=== PATIENT | female | born 1975 | race Caucasian/White ===

== ENCOUNTER 2023-07-11 19:47 | Emergency (ER) | payer BC, OTHER, SELFPAY ==
[2023-07-11] VITALS (18 sets, daily range): BP systolic 135–156; BP diastolic 82–109; PULSE 74–98; RESP 5–23; TEMP 36.9; O2SAT 95–97; BMI 28.9
--- NOTE | 2023-07-11 20:05 | PC.NURSE ---
Pt states she has been off Amlodipine for several days because her insurance no longer covers it EKG obtained
--- NOTE | 2023-07-11 20:14 | ECG_ITS ---
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
--- NOTE | 2023-07-11 20:14 | XR_ITS ---
[address] [address] Patient Name: BRANDON LONG MRN: [id number] date: 1975 Sex: F Assigned Patient Location: ER Current Patient Location: ER Accession/Order Number: [id number] Exam Date: 07/11/2023 19:50 Report Date: 07/11/2023 21:28 At the request of: DANELLE DAWKINS Procedure: XR chest 1V EXAM: XR chest 1V HISTORY: chest pain COMPARISON: Chest x-ray 01/01/2022 TECHNIQUE: Single AP radiograph of the chest FINDINGS: No pneumothorax, pleural effusion or consolidation. Normal heart size. No acute osseous abnormality. XR/XR chest 1V IMPRESSION: No acute cardiopulmonary process. Electronically authenticated by: LAINA BAY Date: 07/11/2023 21:28
--- NOTE | 2023-07-11 20:17 | ED.GENADUL1 ---
HPI - General Adult General Chief complaint: Recheck/Abnormal Lab/Rx Stated complaint: hypertension Time Seen by Provider: 07/11/23 19:48 Source: patient Mode of arrival: walk-in Limitations: no limitations History of Present Illness HPI narrative: 47-year-old female to the emergency department with chief complaint of feeling generally unwell. Patient reports that for a little over a week she has felt spacey, had some intermittent chest discomfort, felt not herself. Patient reports she was recently taken off of her amlodipine as the insurance decided they didn't want to pay for it any longer and it requires a prior authorization despite being out of for several years. She reports that she gets headaches when her blood pressure is elevated and has been elevated and she has had one since she stopped amlodipine. Related Data Home Medications Medication Instructions Recorded Confirmed escitalopram oxalate 10 mg tablet mg 07/11/23 olmesartan 40 mg tablet mg 07/11/23 omeprazole 40 mg capsule,delayed mg 07/11/23 release ropinirole 1 mg tablet mg 07/11/23 spironolactone 25 mg tablet mg 07/11/23 Allergies Allergy/AdvReac Type Severity Reaction Status Date / Time Penicillins Allergy Verified 07/11/23 20:01 sulfamethoxazole Allergy Verified 07/11/23 20:01 [From Bactrim] trimethoprim [From Bactrim] Allergy Verified 07/11/23 20:01 vancomycin Allergy Verified 07/11/23 20:01 Review of Systems ROS Status of ROS 10 or more systems reviewed and unremarkable except as noted in history and below [facility] Social History Smoking status: Never smoker Exam Narrative Exam Narrative: VITALS: I have reviewed the triage vital signs. GENERAL: Well developed, well appearing adult in no acute distress. NEURO: Alert and oriented. Moves all extremities. Face is symmetric and expressive. EYES: PERRL. No scleral icterus or conjunctival injection. No discharge. HENT: Normocephalic, atraumatic. Hearing is grossly intact. Nares grossly patent and without discharge. Mucous membranes moist. NECK: No JVD. Patient moves neck without restriction. CARDIO: Rhythm regular. Normal rate. No murmur, rub, or gallop. Pulses equal bilaterally in the upper and lower extremity. No lower extremity edema. PULM: Lungs clear to auscultation in all leal. No wheezes, rales, or rhonchi. No conversational dyspnea. No splinting, stridor, or accessory muscle use. GI/: Abdomen is soft and non-tender. Normoactive bowel sounds. EXTREMITIES: Symmetric muscle bulk. No joint swelling. No clubbing, cyanosis, or deformity. SKIN: Warm and dry. Normal turgor. No rash or lesions appreciated. PSYCH: Mood, affect, and interaction is appropriate to the setting. Constitutional Vital Signs, click to edit/add: Last Vital Signs Temp 98.4 F 07/11/23 19:57 Pulse 80 07/11/23 19:57 Resp 18 07/11/23 19:57 BP 150/109 H 07/11/23 19:57 Pulse Ox 97 07/11/23 19:57 O2 Del Method Room Air 07/11/23 20:26 Course Vital Signs Vital signs: Vital Signs Temperature 98.4 F 07/11/23 19:57 Pulse Rate 80 07/11/23 19:57 Respiratory Rate 18 07/11/23 19:57 Blood Pressure 150/109 H 07/11/23 19:57 Pulse Oximetry 97 07/11/23 19:57 Oxygen Delivery Method Room Air 07/11/23 19:57 Temperature 98.4 F 07/11/23 19:57 Pulse Rate 80 07/11/23 19:57 Respiratory Rate 18 07/11/23 19:57 Blood Pressure 150/109 H 07/11/23 19:57 Pulse Oximetry 97 07/11/23 19:57 Oxygen Delivery Method Room Air 07/11/23 20:26 Medical Decision Making MDM Narrative Medical decision making narrative: [facility] Data External documents reviewed: Not applicable My EKG interpretation: Interpreted As below My CT interpretation: Not applicable My X-ray interpretation: Reviewed, as below My Ultrasound interpretation: Not applicable Decision rules/scores evaluated: Not applicable Discussed with: Not applicable Treatment and Disposition ED Course: Well-appearing 47-year-old female to the emergency department with chief complaint of feeling generally unwell, hypertension After stopping her amlodipine.She is hypertensive, otherwise stable vitals. The patient is afebrile. Cardiac workup was initiated given her complaints. Patient agrees with this plan. Lower reviewed and noted. No major abnormalities.Troponin is negative. EKG normal sinus rhythm, no STEMI, normal QTC. Findings were discussed with the patient. She felt improved after ibuprofen. Her blood pressure remains elevated in the 140s and 50s systolic. If her a dose of amlodipine here. She believes she will be admitted from the pharmacy tomorrow. She'll follow up with her PCP. Return precautions were discussed. All questions were answered. The patient was discharged home. Shared decision making: As above Code status: Not addressed during this visit Medical Records Medical records reviewed: Yes I reviewed the patient's medical records Lab Data Lab results reviewed: Yes I reviewed the patient's lab results Labs: Lab Results 07/11/23 Range/Units 20:23 WBC 12.1 H (4.0-11.0) 10^3/uL RBC 4.63 (4.20-5.40) 10^6/uL Hgb 13.4 (12.0-16.0) g/dL Hct 39.2 (36.0-48.0) % MCV 84.7 (81.0-99.0) fL MCH 28.9 (26.7-34.0) pg MCHC 34.2 (29.9-35.2) g/dL RDW 11.9 (11.0-15.0) % Plt Count 295 (150-450) 10^3/uL MPV 9.9 (9.5-13.5) fL Neut % (Auto) 59.0 (43.0-75.0) % Lymph % (Auto) 29.5 (20.5-60.0) % [place] % (Auto) 6.5 (1.7-12.0) % Eos % (Auto) 3.8 (0.9-7.0) % Baso % (Auto) 0.9 (0.2-2.0) % Neut # (Auto) 7.1 H (1.4-6.5) 10^3/uL Lymph # (Auto) 3.6 (1.2-3.8) 10^3/uL [place] # (Auto) 0.8 (0.3-0.8) 10^3/uL Eos # (Auto) 0.5 (0.0-0.7) 10^3/uL Baso # (Auto) 0.1 (0.0-0.1) 10^3/uL Abs Immat Gran (auto) 0.04 H (0.00-0.03) 10^3/uL Imm/Tot Granulo (auto) 0.3 (0.0-0.5) % Sodium 136 (136-145) mmol/L Potassium 4.2 (3.5-5.1) mmol/L Chloride 103 (98-107) mmol/L Carbon Dioxide 31.1 (21.0-32.0) mmol/L Anion Gap 6.1 BUN 8.0 (7.0-18.0) mg/dL Creatinine 0.86 (0.55-1.02) mg/dL Est GFR ( Amer) >60 (>=60) Est GFR (Non-Af Amer) >60 (>=60) BUN/Creatinine Ratio 9.3 Glucose 94 (74-106) mg/dL Calcium 8.8 (8.5-10.1) mg/dL Total Bilirubin 0.5 (0.2-1.0) mg/dL AST 14 L (15-37) U/L ALT 26 (14-59) U/L Alkaline Phosphatase 57 (46-116) U/L Troponin I High Sens <4.0 L (4.0-51.3) pg/mL Total Protein 7.3 (6.4-8.2) g/dL Albumin 3.7 (3.4-5.0) g/dL Globulin 3.6 g/dL Albumin/Globulin Ratio 1.0 ECG Data Attestation: I personally reviewed and interpreted this ECG as follows: (Normal sinus rhythm at a rate of eighty-four. No STEMI. Normal QTC.) Discharge Plan Discharge Chief Complaint: Recheck/Abnormal Lab/Rx Clinical Impression: Headache, Hypertension Patient Disposition: Home, Self-Care Time of Disposition Decision: 21:58 Condition: Good Mode of Transportation: Private Vehicle Prescriptions / Home Meds: No Action ropinirole 1 mg tablet omeprazole 40 mg capsule,delayed release(DR/EC) spironolactone 25 mg tablet olmesartan 40 mg tablet escitalopram oxalate 10 mg tablet Print Language: German Instructions: Acute Headache (ED), Hypertension (ED) Stand Alone Forms: Portal Instructions Referrals: Physician,Non-Staff, MD [Primary Care Provider] - 1 week (Follow-up with your doctor on Friday with a phone call. Begin taking her amlodipine was available from pharmacy. Return to the Emergency Department with worsening symptoms as discussed.)
[2023-07-11 20:40] LABS: Basophils Absolute Auto 0.1 10^3/uL (0.0-0.1); Basophils Percent Auto 0.9 % (0.2-2.0); Eosinophils Absolute Auto 0.5 10^3/uL (0.0-0.7); Eosinophils Percent Auto 3.8 % (0.9-7.0); Hematocrit 39.2 % (36.0-48.0); Hemoglobin 13.4 g/dL (12.0-16.0); Immature Granulocytes Abs Auto 0.04 10^3/uL (0.00-0.03); Immature Granulocytes Pct Auto 0.3 % (0.0-0.5); Lymphocytes Absolute Auto 3.6 10^3/uL (1.2-3.8); Lymphocytes Percent Auto 29.5 % (20.5-60.0); Mean Corpuscular HGB Conc 34.2 g/dL (29.9-35.2); Mean Corpuscular Hemoglobin 28.9 pg (26.7-34.0); Mean Corpuscular Volume 84.7 fL (81.0-99.0); Mean Platelet Volume 9.9 fL (9.5-13.5); Monocytes Absolute Auto 0.8 10^3/uL (0.3-0.8); Monocytes Percent Auto 6.5 % (1.7-12.0); Neutrophils Absolute Auto 7.1 10^3/uL (1.4-6.5); Platelet Count 295 10^3/uL (150-450); Red Blood Count 4.63 10^6/uL (4.20-5.40); Red Cell Distribution Width 11.9 % (11.0-15.0); White Blood Count 12.1 10^3/uL (4.0-11.0)
[2023-07-11 21:16] LABS: Alanine Aminotransferase 26 U/L (14-59); Albumin Level 3.7 g/dL (3.4-5.0); Alkaline Phosphatase 57 U/L (46-116); Anion Gap 6.1; Aspartate Amino Transferase 14 U/L (15-37); BUN Creatinine Ratio 9.3; Bilirubin Total 0.5 mg/dL (0.2-1.0); Calcium 8.8 mg/dL (8.5-10.1); Carbon Dioxide 31.1 mmol/L (21.0-32.0); Chloride 103 mmol/L (98-107); Estimated GFR (African America >60 (>=60); Estimated GFR (Non-African Ame >60 (>=60); Globulin 3.6 g/dL; Glucose 94 mg/dL (74-106); Potassium 4.2 mmol/L (3.5-5.1); Sodium 136 mmol/L (136-145); Total Protein 7.3 g/dL (6.4-8.2); Troponin I High Sensitivity <4.0 pg/mL (4.0-51.3)
[2023-07-11] MEDS: IBUPROFEN 600 MG TABLET PO (22:24)
[2023-07-11] MEDS: AMLODIPINE BESYLATE 5 MG TABLET 2.5 MG PO (22:25)
[2023-07-11 22:33] LABS: Bilirubin Urine NEGATIVE (NEGATIVE); Blood Urine NEGATIVE (NEGATIVE); Clarity Urine CLEAR (CLEAR); Color Urine LT. YELLOW (YELLOW); Glucose Urine UA NEGATIVE (NEGATIVE); Ketones Urine NEGATIVE (NEGATIVE); Leukocyte Esterase Urine NEGATIVE (NEGATIVE); Nitrite Urine NEGATIVE (NEGATIVE); Protein Urine NEGATIVE (NEG/TRACE); Urobilinogen Urine 0.2 EU/dL (0.2-1.0)
== END 2023-07-11 22:32 | disposition home or self-care (01) ==
PROVIDERS: Emergency Provider Student in an Organized Health Care Education/Training Program
DX: I10 Essential (primary) hypertension (principal); R51.9 Headache, unspecified; Z79.899 Other long term (current) drug therapy
CPT/HCPCS: 36415; 71045; 80053; 81003; 84484; 85025; 93005; 99285

== ENCOUNTER 2023-08-28 21:59 | Emergency (ER) | payer BC, OTHER, SELFPAY ==
[2023-08-28] VITALS (16 sets, daily range): BP systolic 142–155; BP diastolic 89–95; PULSE 63–83; RESP 13–23; TEMP 36.6; O2SAT 96–99; BMI 31.3
--- NOTE | 2023-08-28 22:24 | ED_ITS ---
HPI - Chest Pain General Chief Complaint: Chest Pain Stated Complaint: cp radiating down left arm, headache Time Seen by Provider: 08/28/23 22:12 Mode of arrival: walk-in Limitations: no limitations History of Present Illness HPI narrative: Is 47-year-old female, nonsmoker with a history of anxiety presents for evaluation of left-sided chest pain underneath her left breast that radiates down her left arm. She states the pain started around 7 PM. It was initially a sharp stabbing pain. She also had some indigestion. She denies any dizziness diaphoresis or syncope. She has no abdominal pain or back pain. She has no lower extremity pain or swelling. She states that she And her family physician are working on getting her on anxiety medications that we'll help her. She has been on Celexa in the past but it made her feel like she was in a fog. She has no abdominal pain or back pain. She does not smoke. She states that 7 or 8 years ago she had a cardiac workup including a stress test. She does not currently see a prototype engineer manager. She was taking aspirin at that time but was told she no longer needed to take the aspirin. She currently has a dull ache in her chest. She does not feel short of breath. She also has a mild headache. She states that she cooked a Thanksgiving dinner earlier today and ate around 1 PM and then around 5 PM had leftover macaroni and cheese.She denies any nausea or vomiting. She states that she has had her gallbladder removed. Her symptoms started her told her to go outside and take some deep breaths. They were then putting up some [place] decorations and her friend convinced her to come to the emergency department and get checked out. Related Data Home Medications Medication Instructions Recorded Confirmed olmesartan 40 mg tablet 40 mg PO DAILY 07/11/23 08/28/23 omeprazole 40 mg capsule,delayed 40 mg PO DAILY 07/11/23 08/28/23 release ropinirole 1 mg tablet 1 mg PO BEDTIME 07/11/23 08/28/23 spironolactone 25 mg tablet 25 mg PO DAILY 07/11/23 08/28/23 amlodipine 5 mg tablet 5 mg PO DAILY 08/28/23 08/28/23 Allergies Allergy/AdvReac Type Severity Reaction Status Date / Time Penicillins Allergy Verified 07/11/23 20:01 sulfamethoxazole Allergy Verified 07/11/23 20:01 [From Bactrim] trimethoprim [From Bactrim] Allergy Verified 07/11/23 20:01 vancomycin Allergy Verified 07/11/23 20:01 Review of Systems ROS Status of ROS 10 or more systems reviewed and unremarkable except as noted in history and below [facility] Social History Smoking status: Former smoker Exam Narrative Exam Narrative: Nurses note and vital signs reviewed and patient is not hypoxic. Blood pressure is probably elevated at 155/95 General: Alert, nontoxic, well-appearing moderately overweight female resting comfortably the stretcher, no distress noted Skin: Warm, dry, no pallor noted. There is no rash noted. Head: Normocephalic, atraumatic Eye: Normal conjunctiva, no drainage, EOMI. PERRL Ears, Nose, Mouth, and Throat: oral mucosa is moist. Nares patent. Mouth without vesicles. Ear canals patent. Tm's without Erythema Cardiovascular: Regular Rate and Rhythm S1S2, pulses are brisk and equal bilaterally, there is tenderness to palpation in the left chest wall where the patient is complaining of pain, no crepitus or skin rash noted Respiratory: Patient is in no distress, no accessory muscle use, lungs are clear to auscultation, no wheezing, rales or rhonchi Back: non-tender, no CVA tenderness bilaterally to percussion. GI: Normal bowel sounds, no tenderness to palpation, no masses appreciated. No rebound, guarding, or rigidity noted. Musculoskeletal: The patient has no evidence of calf tenderness, no pitting edema, symmetrical pulses noted bilaterally Neurological: A&O x4, normal speech Psychiatric: Cooperative Constitutional Vital Signs, click to edit/add: Last Vital Signs Temp 97.9 F 08/28/23 22:04 Pulse 70 08/28/23 23:00 Resp 19 08/28/23 23:00 BP 142/89 H 08/28/23 22:58 Pulse Ox 97 08/28/23 23:00 O2 Del Method Room Air 08/28/23 22:11 Course Vital Signs Vital signs: Vital Signs Temperature 97.9 F 08/28/23 22:04 Pulse Rate 78 08/28/23 22:04 Respiratory Rate 16 08/28/23 22:04 Blood Pressure 155/95 H 08/28/23 22:04 Pulse Oximetry 99 08/28/23 22:04 Oxygen Delivery Method Room Air 08/28/23 22:04 Temperature 97.9 F 08/28/23 22:04 Pulse Rate 70 08/28/23 23:00 Respiratory Rate 19 08/28/23 23:00 Blood Pressure 142/89 H 08/28/23 22:58 Pulse Oximetry 97 08/28/23 23:00 Oxygen Delivery Method Room Air 08/28/23 22:11 MDM - Chest Pain MDM Narrative Medical decision making narrative: This 47-year-old female with a history of anxiety and hypertension, presents for evaluation of left anterior chest pain that radiated down her left arm. The pain started as a sharp pain and upon arrival was achy. The symptoms started several hours prior to arrival. She denies any shortness of breath dizziness or diaphoresis. She also had some mild indigestion prior to arrival. She denied any nausea or vomiting. She had no abdominal pain or back pain. She has no lower extremity pain or swelling. Her vital signs were stable. Her physical exam was benign. She did have some tenderness at the left anterior chest wall with no crepitus or skin rash noted. She did have a cardiac workup 7 or 8 years ago that was normal. She was told at that time that she could stop taking aspirin. She does not follow up with a prototype engineer manager. She states she has a history of anxiety and physician to try to come up with a medication that helps her with her anxiety. On arrival an EKG was done and it is a sinus rhythm at 75 bpm with no acute changes. She was medicated with 324 mg baby aspirin and IV Pepcid.An IV was placed and routine labs are ordered. She has a normal white count and hemoglobin. She has a normal troponin less than 4. D-dimer is normal. She has a mild elevation in her BUN and creatinine at 19 and 1.09, Possibly indicating some degree of dehydration.His admit that she has been dizzy recently preparing for Thanksgiving and does not drink a lot of water. She does drink a lot of pop. She was given a liter of normal saline. Reevaluation she was feeling better. I discussed the results of her labs with her and she feels comfortable being discharged home. I encouraged her to follow closely with her family physician for further evaluation and treatment of her anxiety and referral if necessary for further evaluation of her chest pain. Her heart score is a 2. Lab Data Labs: Lab Results 08/28/23 Range/Units 22:10 WBC 13.6 H (4.0-11.0) 10^3/uL RBC 4.65 (4.20-5.40) 10^6/uL Hgb 13.4 (12.0-16.0) g/dL Hct 39.5 (36.0-48.0) % MCV 84.9 (81.0-99.0) fL MCH 28.8 (26.7-34.0) pg MCHC 33.9 (29.9-35.2) g/dL RDW 12.5 (11.0-15.0) % Plt Count 309 (150-450) 10^3/uL MPV 9.8 (9.5-13.5) fL Neut % (Auto) 52.1 (43.0-75.0) % Lymph % (Auto) 38.1 (20.5-60.0) % [place] % (Auto) 7.4 (1.7-12.0) % Eos % (Auto) 1.3 (0.9-7.0) % Baso % (Auto) 0.7 (0.2-2.0) % Neut # (Auto) 7.1 H (1.4-6.5) 10^3/uL Lymph # (Auto) 5.2 H (1.2-3.8) 10^3/uL [place] # (Auto) 1.0 H (0.3-0.8) 10^3/uL Eos # (Auto) 0.2 (0.0-0.7) 10^3/uL Baso # (Auto) 0.1 (0.0-0.1) 10^3/uL Abs Immat Gran (auto) 0.06 H (0.00-0.03) 10^3/uL Imm/Tot Granulo (auto) 0.4 (0.0-0.5) % D-Dimer 0.27 (<=0.59) mg/L FEU Sodium 137 (136-145) mmol/L Potassium 3.2 L (3.5-5.1) mmol/L Chloride 101 (98-107) mmol/L Carbon Dioxide 29.9 (21.0-32.0) mmol/L Anion Gap 9.3 BUN 19.0 H (7.0-18.0) mg/dL Creatinine 1.09 H (0.55-1.02) mg/dL Est GFR ( Amer) >60 (>=60) Est GFR (Non-Af Amer) 54 L (>=60) BUN/Creatinine Ratio 17.4 Glucose 100 (74-106) mg/dL Calcium 9.0 (8.5-10.1) mg/dL Total Bilirubin 0.5 (0.2-1.0) mg/dL AST 13 L (15-37) U/L ALT 24 (14-59) U/L Alkaline Phosphatase 55 (46-116) U/L Troponin I High Sens <4.0 L (4.0-51.3) pg/mL NT-Pro-B Natriuret Pep 39.0 (<=450.0) pg/mL Total Protein 7.8 (6.4-8.2) g/dL Albumin 4.0 (3.4-5.0) g/dL Globulin 3.8 g/dL Albumin/Globulin Ratio 1.1 ECG Data Attestation: I personally reviewed and interpreted this ECG as follows: (Sinus rhythm at 75 beats for minute, normal axis, normal intervals, no acute ST segment elevation or T-wave inversion) Heart Score History: Slightly/Non-Suspicious ECG: Normal Age: >45-<65 years Risk Factors: 1 or 2 Risk Factors Troponin: <Normal Limit Total Heart Score Recommendations & Risks:: 2 Discharge Plan Discharge Chief Complaint: Chest Pain Clinical Impression: Atypical chest pain, Chest wall pain Patient Disposition: Home, Self-Care Time of Disposition Decision: 23:39 Prescriptions / Home Meds: No Action ropinirole 1 mg tablet 1 mg PO BEDTIME omeprazole 40 mg capsule,delayed release(DR/EC) 40 mg PO DAILY spironolactone 25 mg tablet 25 mg PO DAILY olmesartan 40 mg tablet 40 mg PO DAILY amlodipine 5 mg tablet 5 mg PO DAILY Instructions: Noncardiac Chest Pain (ED), Chest Wall Pain (ED) Stand Alone Forms: Portal Instructions Referrals: Physician,Non-Staff, MD [Primary Care Provider] - 1 week
--- NOTE | 2023-08-28 22:24 | XR_ITS ---
The [address] [address] Patient Name: BRANDON LONG MRN: [id number] date: 1975 Sex: F Assigned Patient Location: ER Current Patient Location: ER Accession/Order Number: [id number] Exam Date: 08/28/2023 22:30 Report Date: 08/28/2023 22:43 At the request of: ASHANTI MARKER Procedure: XR chest 1V EXAM: XR chest 1V HISTORY: CP COMPARISON: Chest x-ray 07/11/2023 TECHNIQUE: Single AP radiograph of the chest FINDINGS: No pneumothorax, pleural effusion or consolidation. Normal heart size. No acute osseous abnormality. XR/XR chest 1V IMPRESSION: No acute cardiopulmonary process. Electronically authenticated by: LAINA BAY Date: 08/28/2023 22:43
--- NOTE | 2023-08-28 22:24 | ECG_ITS ---
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
[2023-08-28 22:30] LABS: Basophils Absolute Auto 0.1 10^3/uL (0.0-0.1); Basophils Percent Auto 0.7 % (0.2-2.0); Eosinophils Absolute Auto 0.2 10^3/uL (0.0-0.7); Eosinophils Percent Auto 1.3 % (0.9-7.0); Hematocrit 39.5 % (36.0-48.0); Hemoglobin 13.4 g/dL (12.0-16.0); Immature Granulocytes Abs Auto 0.06 10^3/uL (0.00-0.03); Immature Granulocytes Pct Auto 0.4 % (0.0-0.5); Lymphocytes Absolute Auto 5.2 10^3/uL (1.2-3.8); Lymphocytes Percent Auto 38.1 % (20.5-60.0); Mean Corpuscular HGB Conc 33.9 g/dL (29.9-35.2); Mean Corpuscular Hemoglobin 28.8 pg (26.7-34.0); Mean Corpuscular Volume 84.9 fL (81.0-99.0); Mean Platelet Volume 9.8 fL (9.5-13.5); Monocytes Percent Auto 7.4 % (1.7-12.0); Neutrophils Absolute Auto 7.1 10^3/uL (1.4-6.5); Neutrophils Percent Auto 52.1 % (43.0-75.0); Platelet Count 309 10^3/uL (150-450); Red Blood Count 4.65 10^6/uL (4.20-5.40); Red Cell Distribution Width 12.5 % (11.0-15.0); White Blood Count 13.6 10^3/uL (4.0-11.0)
[2023-08-28 22:41] LABS: Alanine Aminotransferase 24 U/L (14-59); Albumin Globulin Ratio 1.1; Alkaline Phosphatase 55 U/L (46-116); Anion Gap 9.3; Aspartate Amino Transferase 13 U/L (15-37); BUN Creatinine Ratio 17.4; Bilirubin Total 0.5 mg/dL (0.2-1.0); Carbon Dioxide 29.9 mmol/L (21.0-32.0); Chloride 101 mmol/L (98-107); Estimated GFR (African America >60 (>=60); Estimated GFR (Non-African Ame 54 (>=60); Globulin 3.8 g/dL; Glucose 100 mg/dL (74-106); Potassium 3.2 mmol/L (3.5-5.1); Sodium 137 mmol/L (136-145); Total Protein 7.8 g/dL (6.4-8.2)
[2023-08-28 22:43] LABS: D Dimer 0.27 mg/L FEU (<=0.59)
[2023-08-28 22:48] LABS: Troponin I High Sensitivity <4.0 pg/mL (4.0-51.3)
[2023-08-28] MEDS: ASPIRIN 81 MG TAB.CHEW 324 MG PO (22:53)
[2023-08-28] MEDS: FAMOTIDINE/PF 20 MG/2 ML VIAL IV (22:53)
[2023-08-28] MEDS: 0.9 % SODIUM CHLORIDE 1,000 ML 1000 ML IV (23:00)
[2023-08-29] VITALS: BP 148/92; PULSE 73; RESP 16; O2SAT 98
== END 2023-08-29 00:06 | disposition home or self-care (01) ==
PROVIDERS: Emergency Provider Emergency Medicine
DX: R07.89 Other chest pain (principal); I10 Essential (primary) hypertension; F41.9 Anxiety disorder, unspecified; Z79.899 Other long term (current) drug therapy; Z87.891 Personal history of nicotine dependence
CPT/HCPCS: 36415; 71045; 80053; 83880; 84484; 85025; 85378; 93005; 96374; 99285

== ENCOUNTER 2024-04-20 13:01 | Emergency (ER) | payer BC, OTHER, SELFPAY ==
[2024-04-20 13:06] VITALS: BP 132/91; PULSE 109; TEMP 37.7; O2SAT 96; BMI 32.3
--- OUTSIDE RECORDS SUMMARY | 2024-04-20 13:19 | XMS_ITS | CCD ---
Author Organization [facility]ini[facility] Care Team Providers Care Assembler [place] Name Role Phone Steph Causey Unavailable Unavailable Family Physician Unavailable Unavailable Jessica vailable Family Physician Unavailable Unavailable Jessica vailable UNKNOWN, PROVIDER Unavailable Unavailable MICHEAL OCASIO Unavailable Unavailable Micheal Ocasio Unavailable Dash, DO Burton Primary Care Provider Kunalix, DO Micheal Attending Provider [phone] Guys, DO Burton Primary Care Provider DO Maycol Israel Attending Provider [phone] Macey Floyd Unavailable Macey Licona Unavailable DR MICHEAL OCASIO Primary Care Unavailable MIKE GTZ Admitting Unavailable MIKE GTZ Attending Unavailable MIKE GTZ Consulting Unavailable DASH, DR BURTON Primary Care Unavailable PAY ., DR SADLER Admitting Unavailable PAY ., DR SADLER Attending Unavailable PAY ., DR SADLER Consulting Unavailable DASH, DR BURTON Primary Care Unavailable HAY ., DR CUENCA Admitting Unavailable HAY ., DR CUENCA Attending Unavailable ZIRADHA, DR LUPE Lundberg Consulting Unavailable HAY ., DR CUENCA Consulting Unavailable DASH, DR BRUTON Primary Care Unavailable DIAB ., LARA Admitting Unavailable DIAB ., LARA Attending Unavailable DIAB ., LARA Consulting Unavailable DASH, DR BURTON Primary Care Unavailable MARKER ., DR BURRELL Admitting Unavailable MARKER ., DR BURRELL Attending Unavailable MARKER ., DR BURRELL Consulting Unavailable TYSHAWN SILVESTRE Consulting Unavailable MICHEAL OCASIO Primary Care Physician [phone] Guys, DO Burton Primary Care Provider Kuns, DO Burton Attending Provider Barbara Dasilva Unavailable Unavailable Dash, DO Burton Primary Care Provider [phone] DO Lamont Martin Attending Provider [phone] LAMONT MARTIN Attending Unavailable LMAONT MARTIN Referring Unavailable LAMONT MARTIN Attending Unavailable LAMONT MARTIN Attending Unavailable LAMONT MARTIN Referring Unavailable MAYCOL ISRAEL Referring Unavailable PACO GROSS Attending Unavailable LAMONT MARTIN Referring Unavailable WILLIAM LIEBERMAN Attending Unavailable LAMONT MARTIN Referring Unavailable Brown NEGRO Consulting Unavailable Aly Castellanos Attending Unavaila Aly Hernandez Referring Unavaila ble Aly Castellanos Admitting Unavaila ble Brown NEGRO Consulting Unavailable Brown NEGRO Consulting Unavailable Gila Beasley Attending Unavailable NONE, XXXX Referring Unavailable Aly Castellanos Attending Unavaila ble NONE, XXXX Referring Unavailable Aly Castellanos Admitting Unavaila Aly Hernandez Attending Unavaila Aly Hernandez Admitting Unavaila ble Brown NEGRO Consulting Unavailable Aly Castellanos Attending Unavaila Aly Hernandez Referring Unavaila ble Brown NEGRO Consulting Unavailable Brown NEGRO Consulting Unavailable DO Micheal Ocasio Primary Care Provider [phone] DO Micheal Ocasio Attending Provider [phone] Micheal Ocasio Primary Care Unavailable Lamont Martin Admitting Unavailable Lamont Martin Attending Unavailable Micheal Ocasio Admitting Unavailable Micheal Ocasio Primary Care Unavailable Micheal Ocasio Attending Unavailable Micheal Ocasio Admitting Unavailable Micheal Ocasio Primary Care Unavailable Micheal Ocasio Attending Unavailable Allergies Allergy Classification Reported Allergen(s) Allergy Type Date of Onset Reaction(s) Facility (20 sources) Acetaminophen / traMADol Drug Allergy jittery [facility] Other (20 sources) Amoxicillin / Clavulanate Drug Allergy stomache upset [facility] Other (20 sources) Azithromycin Drug Allergy vomiting [facility] Other (20 sources) cefdinir Drug Allergy hives [facility] Other (20 sources) cyclobenzaprine Drug Allergy [facility] Other (20 sources) methylPREDNISolone Drug Allergy 024 stomach upset [facility] (20 sources) Sulfamethoxazole / Trimethoprim; Translations: [sulfamethoxazole-tr imethoprim] Drug Allergy stomach cramping, vomiting [facility] (20 sources) telithromycin Drug Allergy [facility] [employer] Other (20 sources) Adipex Propensity to adverse reactions GI upset, Rapid heart rate [facility] [employer] Other (20 sources) Vanco Propensity to adverse reactions hives [facility] [employer] Other (20 sources) Azithromycin; Translations: [azithromycin] Drug Allergy 020 Nausea, vomiting, Nausea, vomiting [facility] (9 sources) Sulfamethoxazole; Translations: [sulfamethoxazole] Drug Allergy 020 Nausea, Nausea, stomach cramping [facility] (9 sources) Trimethoprim; Translations: [trimethoprim] Drug Allergy 020 Nausea, Nausea, stomach cramping [facility] (16 sources) Vancomycin; Translations: [vancomycin] Drug Allergy 016 Rash, hives, Rash, hives [facility] (20 sources) Acetaminophen / traMADol Drug Allergy [facility] [employer] Other (12 sources) Amoxicillin / Clavulanate Drug Allergy stomache upset [facility] [employer] Other (1 source) Azithromycin Drug Allergy [facility] (1 source) Penicillin Drug Allergy [facility] (2 sources) Sulfamethoxazole / Trimethoprim; Translations: [Bactrim] Drug Allergy [facility] (1 source) Sulfonamides (Antibiotic) Drug allergy (disorder) [facility] (5 sources) Amoxicillin; Translations: [amoxicillin] Drug Allergy stomach upset [facility] (5 sources) cefdinir; Translations: [cefdinir] Drug Allergy hives [facility] (5 sources) Clavulanate; Translations: [clavulanic acid] Drug Allergy stomache upset [facility] (5 sources) cyclobenzaprine; Translations: [cyclobenzaprine] Drug Allergy [facility] (5 sources) Phentermine; Translations: [phentermine] Drug Allergy Rapid heart rate [facility] (5 sources) telithromycin; Translations: [telithromycin] Drug Allergy [facility] (5 sources) traMADol; Translations: [tramadol] Drug Allergy [facility] (3 sources) Betamethasone Drug Allergy polyarthralgia [facility] (1 source) Acetaminophen Drug Allergy [facility] (1 source) methylPREDNISolone Drug Allergy [facility] Medications Current Medications Medication Drug Class(es) Dates Sig (Normalized) Sig (Original) 0.5 ML semaglutide 1 MG/ML Auto-Injector [Wegovy] (9 sources) Start: 12-13-2022 Wegovy 0.5 MG/0.5ML 0.5 mL Subcutaneous for 30 day(s) Dec, Active inject 0.5 mL by sub cutaneous injection every week Wegovy 0.5 MG/0.5ML 0.5 mL Subcutaneous once a week for 30 days Active inject 0.5 mL by sub cutaneous injection every week Wegovy 0.5 MG/0.5ML 0.5 mL Subcutaneous once a week 1 sample Active inject 0.5 mL by sub cutaneous injection every week Wegovy 0.5 MG/0.5ML 0.5 mL Subcutaneous once a week Active inject 0.5 mL by sub cutaneous injection every week Wegovy 0.5 MG/0.5ML 0.5 mL Subcutaneous once a week for 28 days Active [id number] 200 actuat albuterol 0.09 mg/actuat metered dose inhaler (20 sources) beta2-Adrenergic Agonist Start: 11-27-2023 take 2 puff(s) by mouth every four hours as needed Albuterol Sulfate (Ventolin Hfa) 90 mcg/actuation HFA aerosol inhaler Active 2 INH INHALATION November 27, 2023 1:00am FreeTextSig: INHALE 2 PUFFS BY MOUTH EVERY 4 HOURS NEEDED Inhalation; Note: Source Status: Taking; Refills: 1; Provider: Dash Abraham take 2 puff(s) by mo uth every four hours as needed Ventolin HFA 108 (90 Base) MCG/ACT INHAL E 2 PUFFS BY MOUTH EVERY 4 HOURS NEEDED Inhalation Active amLODIPine 5 mg oral tablet (20 sources) Dihydropyridine Calcium Channel [place] Start: 10-30-2023 take 1 tablet by mouth once daily Amlodipine Active 5 MG PO Daily November 27, 2023 1:00am FreeTextSi tablet Orally Once a day; Note: Source Status: Continue; Provider: Dash Abraham Start: 01-29-2022 take 1 tablet by jordin th every twenty-four hours amLODIPine Besylate 5 MG 1 tablet Orally Once a day Jan, Active Start: 01-29-2022 take 1 tablet by jordin th every twelve hours amLODIPine Besylate 5 MG 1 tablet Orally BID Jan, Active Start: 01-29-2022 take 1 tablet by jordin th every twelve hours amLODIPine Besylate 2.5 MG 1 tablet Orally BID for 90 days Jan, Active Start: 01-29-2022 take 2 tablets by mo uth in the morning, then take 1 tablet by mouth in the evening amLODIPine Besylate 2.5 MG 2 tabs AM and 1 tab PM Orally as directed Jan, Active Start: 05-31-2020 End: 11-27-2023 take 2.5 mg by mouth once daily Amlodipine Discontinue d 2.5 MG PO Daily May 31, 2020 12:00am November 27, 2023 5:44pm Start: 09-06-2019 take 1 tablet by jordin th every twelve hours amLODIPine Besylate 2.5 MG 1 tablet Orally BID Sep, Active amoxicillin 875 mg / clavulanate 125 mg oral tablet (4 sources) Penicillin-class Antibacterial Start: 02-04-2023 End: 02-14-2023 take 1 tablet by mouth every twelve hours Amoxicillin-Pot Clavulanate 875-125 MG 1 tablet Orally every 12 hrs February, Active azithromycin 250 mg oral tablet (1 source) Macrolide Antimicrobial Start: 03-22-2024 Azithromycin (Zithromax Z-Noel) 250 mg tablet Active 0 PO .COMPLEX March 22, 2024 12:00am For 250 mg dose pack: take 500 mg today (day 1), then 250 mg for 4 days (days 2-5) PO betamethasone 0.5 mg/ml / clotrimazole 10 mg/ml topical cream (2 sources) Azole Antifungal, Corticosteroid Start: 03-02-2024 Clotrimazole-Betame thasone Active 1 APPLIC TOPICAL Twice daily March 02, 2024 12:00am 120 actuat budesonide 0.16 mg/actuat / formoterol fumarate 0.0048 mg/actuat / glycopyrrolate 0.009 mg/actuat metered dose inhaler (5 sources) Corticosteroid, beta2-Adrenergic Agonist Start: 04-15-2022 take 2 puff(s) by inhalation twice daily Breztri Aerosphere 160-9-4.8 MCG/ACT 2 puffs Inhalation Twice a day Apr, Active dicyclomine hydrochloride 10 mg oral capsule (4 sources) Anticholinergic Start: 02-04-2023 End: 02-11-2023 take 1 capsule by mouth four times daily as needed Dicyclomine HCl 10 MG 1 capsule Orally Four times a day as needed February, Active doxycycline hyclate 100 mg oral tablet (16 sources) Tetracycline-class Drug Start: 04-16-2022 take 1 tablet by mouth every twelve hours Doxycycline Hyclate 100 MG 1 tablet Orally Twice a day for 7 day(s) Apr, Active Start: 10-18-2021 take 1 capsule by [facility] every twelve hours Doxycycline Hyclate 100 MG 1 capsule Orally Twice a day for 10 day(s) Oct, Active escitalopram 10 mg oral tablet (4 sources) Serotonin Reuptake Inhibitor Start: 06-16-2023 take 1 tablet by mouth every twenty-four hours Escitalopram Oxalate 10 MG 1 tablet Orally Once a day for 30 days Jun, Active 30 actuat fluticasone furoate 0.1 mg/actuat / umeclidinium 0.0625 mg/actuat / vilanterol 0.025 mg/actuat dry powder inhaler (2 sources) Anticholinergi c, Corticosteroid , beta2-Adrenerg ic Agonist Start: 05-23-2022 take 1 puff(s) by inhalation once daily Treledarya Ellipta 100-62.5-25 MCG/INH 1 puff Inhalation Once a day samples May, Active gabapentin 100 mg oral capsule (2 sources) Anti-epileptic Agent Start: 05-31-2020 take 100 mg by mouth once daily Gabapentin Active 100 MG PO Daily May 31, 2020 12:00am hydroCHLOROthiazide 12.5 mg oral tablet (6 sources) Thiazide Diuretic Start: 09-22-2021 take 1-2 tablets by mouth once daily in the morning hydroCHLOROthiazide 12.5 MG 1-2 tablet in the morning Orally Once a day for 90 days Sep, Active lisinopril 2.5 mg oral tablet (2 sources) Angiotensin Converting Enzyme Inhibitor Start: 07-30-2017 take 2.5 mg by mouth once daily Lisinopril Active 2.5 MG PO Daily July 30, 2017 12:00am lubiprostone (20 sources) Chloride Channel Activator Start: 11-28-2023 take 1 capsule by mouth twice daily at mealtime as needed Lubiprostone Active 24 MCG PO Twice daily November 28, 2023 12:30pm FreeTextSi capsule with food and water Orally Twice a day as needed; Note: Source Status: Taking; Provider: Brayan Saavedra Start: 11-28-2023 take 1 capsule by [facility] twice daily at mealtime as needed Lubiprostone Active 24 MCG PO Twice daily November 28, 2023 11:30am FreeTextSi capsule with food and water Orally Twice a day as needed; Note: Source Status: Taking; Provider: Brayan Saavedra Start: 11-27-2023 End: 11-28-2023 take 1 capsule by mouth twice daily at mealtime as needed Lubiprostone Discontinued MCG PO November 27, 2023 1:00am November 28, 2023 12:33pm FreeTextSi capsule with food and water Orally Twice a day as needed; Note: Source Status: Taking; Provider: Brayan Saavedra Start: 11-27-2023 End: 11-28-2023 take 1 capsule by mouth twice daily at mealtime as needed Lubiprostone Discontinued MCG PO November 27, 2023 12:00am November 28, 2023 11:33am FreeTextSi capsule with food and water Orally Twice a day as needed; Note: Source Status: Taking; Provider: Brayan Saavedra Start: 06-09-2020 take 1 capsule by mo [facility] twice daily at mealtime as needed Amitiza 24 MCG 1 capsule with food and water Orally Twice a day as needed Jun, Active Start: 06-09-2020 take 1 capsule by mo ut twice daily at mealtime as needed Amitiza 24 MCG 1 capsule with food and water Orally Twice a day as needed Jun, Active methylPREDNISolone 4 mg oral tablet (2 sources) Corticosteroid Start: 06-12-2022 Medrol 4 MG as directed Orally Jun, Active Start: 05-23-2022 Medrol 4 MG as directed Orally as directed May, Active omeprazole 40 mg delayed release oral capsule (20 sources) Proton Pump Inhibitor Start: 05-31-2020 End: 03-02-2024 take 40 mg by mouth once daily Omeprazole Active 40 MG PO Daily March 02, 2024 3:18pm ondansetron 4 mg disintegrating oral tablet (20 sources) Serotonin-3 Receptor Antagonist Start: 11-27-2023 take 1 tablet by mouth every eight hours as needed Ondansetron Active 4 MG PO Every 8 hours November 27, 2023 1:00am FreeTextSi tablet on the tongue and allow to dissolve Orally every 8 hours as needed; Note: Source Status: Not-Taking\PRN; Provider: Dash Burton ( ) Start: 02-04-2023 take 1 tablet by jordin every eight hours as needed Ondansetron 4 MG 1 tablet on the tongue and allow to dissolve Orally every 8 hours as needed February, Not-Taking/PRN oseltamivir 75 mg oral capsule (2 sources) Neuraminidase Inhibitor Start: 10-10-2021 take 1 capsule by mouth every twelve hours Tamiflu 75 MG 1 capsule Orally Twice a day for 5 day(s) Oct, Active Patient Specific Meds (2 sources) Start: 12-16-2023 Patient Specific Meds See Instructions Start Date: 12/16/23 Status: Ordered phentermine hydrochloride 37.5 mg oral tablet (5 sources) Sympathomimetic Amine Anorectic Start: 01-28-2024 End: 03-02-2024 take 37.5 mg by mouth once daily 30 minutes after breakfast Phentermine Active 37.5 MG PO Daily March 02, 2024 3:48pm must administer 30 minutes before or 1-2 hours after breakfast rOPINIRole 1 mg oral tablet (20 sources) Nonergot Dopamine Agonist Start: 11-27-2023 take 1 tablet by mouth once daily Ropinirole Active 1 MG PO Daily November 27, 2023 1:00am FreeTextSi tablet Orally Once a day; Note: Source Status: Taking; Provider: Dash Abraham Start: 12-13-2022 take 1 tablet by jordin th every twenty-four hours rOPINIRole HCl 1 MG 1 tablet Orally Once a day Dec, Active Start: 12-13-2022 take 1 tablet by jordin th every twenty-four hours rOPINIRole HCl 0.5 MG 1 tablet Orally Once a day Dec, Active tiZANidine 4 mg oral tablet (20 sources) Central alpha-2 Adrenergic Agonist Start: 11-27-2023 take 1 tablet by mouth once daily at bedtime Tizanidine (Zanaflex) 4 mg tablet Active 4 MG PO Daily at bedtime November 27, 2023 1:00am FreeTextSi tablet as needed Orally QHS; Note: Source Status: Taking; Refills: 0; Provider: Dash Abraham Start: 02-26-2012 take 1 tablet by jordin th once daily at bedtime as needed Zanaflex 4 MG 1 tablet as needed Orally QHS for 90 days February, Active Zofran ODT 4 mg Tab-Dis (5 sources) Start: 02-04-2023 take 1 tablet by mouth every eight hours Zofran ODT 4 mg Tab-Dis 4 mg = 1 tab(s), Oral, q8hr, # 12 tab(s), Refills(s) 0 Start Date: 02/04/23 Status: Ordered Completed/Discontinued Medications Medication Drug Class(es) Dates Sig (Normalized) Sig (Original) betamethasone 0.5 mg/ml topical cream (11 sources) Corticosteroid Start: 12-13-2022 Betamethasone Dipropionate 0.05 % 1 application Externally Once a day Dec, Not-Taking 24 hr buPROPion hydrochloride 150 mg extended release oral tablet (9 sources) Aminoketone Start: 01-28-2019 End: 11-27-2023 take 150 mg by mouth once daily Bupropion Hcl Discontinued 150 MG PO Daily May 31, 2020 12:00am November 27, 2023 5:45pm cephalexin 500 mg oral capsule (6 sources) Cephalosporin Antibacterial Start: 09-13-2022 End: 11-27-2023 take 500 mg by mouth every six hours Cephalexin Discontinued 500 MG PO Q6H 28 September 13, 2022 1:00am November 27, 2023 5:45pm citalopram 20 mg oral tablet (20 sources) Serotonin Reuptake Inhibitor Start: 06-19-2019 take 1 tablet by mouth every twenty-four hours Citalopram Hydrobromide 20 MG 1 tablet Orally Once a day Jun, Not-Taking Start: 07-30-2017 End: 11-27-2023 take 1 tablet by mouth once daily Citalopram (Celexa) 10 mg Tablet Discontinued 10 MG PO Daily July 30, 2017 12:00am November 27, 2023 5:45pm furosemide 20 mg oral tablet (1 source) Loop Diuretic Start: 11-16-2020 take 1 tablet by mouth every twenty-four hours Furosemide 20 MG 1 tablet Orally Once a day Nov, Not-Taking homatropine methylbromide 0.3 mg/ml / HYDROcodone bitartrate 1 mg/ml oral solution (4 sources) Opioid Agonist, Cholinergic Muscarinic Agonist Start: 05-06-2022 HYDROcodone Bit-Homatrop MBr 5-1.5 MG/5ML 5 mL as needed Orally every 6 hrs May, Not-Taking Start: 05-06-2022 take 5 mL by mouth e very six hours as needed Hycodan Syrup 5mg/1.5 mg 5ml po q 6 hrs prn May, Active Ketorolac (20 sources) Nonsteroidal Anti-inflammatory Drug, Cyclooxygenase Inhibitor Start: 01-11-2021 Toradol p er 15 mg Jan, 2 cc Start: 01-28-2019 Toradol per 15 mg Jan, 60 mg Start: 12-16-2017 Toradol per 15 mg Dec, 2 cc Start: 10-29-2013 Toradol per 15 mg Oct, 2 mL linaclotide 0.072 mg oral capsule (5 sources) Guanylate Cyclase-C Agonist Start: 01-17-2023 Linzess 72 MCG 1 capsule at least 30 minutes before the first meal of the day on an empty stomach Orally Once a day for 30 days Samples Jan, Not-Taking montelukast 10 mg oral tablet (20 sources) Leukotriene Receptor Antagonist Start: 11-27-2023 End: 01-28-2024 take 1 tablet by mouth once daily at bedtime Montelukast (Singulair) 10 mg tablet Discontinued 10 MG PO Daily at bedtime November 27, 2023 1:00am January 28, 2024 9:50am FreeTextSi tablet Orally QHS; Note: Source Status: Not-Taking\PRN; Provider: Dash Abraham Start: 2021 take 1 tablet by jordin th once daily at bedtime Singulair 10 MG 1 tablet Orally QHS Dec, Not-Taking/PRN olmesartan medoxomil 40 mg oral tablet (20 sources) Angiotensin 2 Receptor Milton Start: 10-30-2023 End: 12-08-2023 take 1 tablet by mouth once daily Olmesartan Discontinued 40 MG PO Daily November 27, 2023 1:00am December 08, 2023 11:58am FreeTextSi tablet Orally Once a day; Note: Source Status: Continue; Provider: Dash Abraham Start: 09-13-2022 End: 11-27-2023 take 20 mg by mouth once daily Olmesartan Discontinued 20 MG PO Daily September 13, 2022 1:00am November 27, 2023 5:44pm Start: 05-09-2021 take 1 tablet by jordin th every twenty-four hours Olmesartan Medoxomil 40 MG 1 tablet Orally Once a day May, Active 24 hr oxybutynin chloride 10 mg extended release oral tablet (20 sources) Cholinergic Muscarinic Antagonist Start: 11-27-2023 End: 01-28-2024 take 1 tablet by mouth once daily Oxybutynin Chloride Discontinued 10 MG PO Daily November 27, 2023 1:00am January 28, 2024 9:51am FreeTextSi tablet Orally Once a day; Note: Source Status: Taking; Provider: Dash Burton ( ) take 1 tablet by jordin th every twenty-four hours oxyBUTYnin Chloride ER 10 MG 1 tablet Orally Once a day Active predniSONE 20 mg oral tablet (5 sources) Start: 04-29-2022 take 1 tablet by mouth twice daily, then take 1 tablet by mouth once daily predniSONE 20 MG 1 tablet BID for 14 days and then 1 tab daily thereafter Orally as directed Apr, Not-Taking Start: 10-18-2021 predniSONE 20 MG 1 tablet Orally BID X 5 DAYS, QD X 5 DAYS for 10 DAYS Oct, Active pregabalin 150 mg oral capsule (1 source) Start: 01-11-2021 take 1 capsule by mouth every twelve hours Lyrica 150 MG 1 capsule Orally BID Jan, Not-Taking semaglutide 7 mg oral tablet (13 sources) Start: 11-27-2023 End: 11-28-2023 Semaglutide Discontinued 7 MG PO Daily November 27, 2023 1:00am November 28, 2023 12:32pm FreeTextSi tablet at least 30 minutes before first food, beverage or other oral medicine of the day Orally Once a day; Note: Source Status: Startsamples; Provider: Dash Abraham Start: 10-09-2023 Rybelsus 3 MG as directed Orally samples Oct, Active Start: 10-09-2023 Rybelsus 7 MG 1 tablet at least 30 minutes before first food, beverage or other oral medicine of the day Orally Once a day for 30 days samples Oct, Active Start: 12-31-2022 Ozempic (0.25 or 0.5 MG/DOSE) 2 MG/1.5ML 0.25mg Subcutaneous Once a week Please dispense 1 pen for starting dose Dec, Active spironolactone 25 mg oral tablet (20 sources) Aldosterone Antagonist Start: 02-07-2022 End: 01-20-2024 take 25 mg by mouth once daily Spironolactone Discontinued 25 MG PO Daily September 13, 2022 1:00am January 20, 2024 4:55pm traMADol hydrochloride 50 mg oral tablet (6 sources) Opioid Agonist Start: 09-13-2022 End: 11-27-2023 take 50 mg by mouth every four hours Tramadol Discontinued 50 MG PO Q4H 24 04September 13, 2022 1:00am November 27, 2023 5:45pm traZODone hydrochloride 50 mg oral tablet (20 sources) Serotonin Reuptake Inhibitor Start: 11-27-2023 End: 01-28-2024 take 1 tablet by mouth once daily at bedtime Trazodone Discontinued 50 MG PO Daily at bedtime November 27, 2023 1:00am January 28, 2024 9:51am FreeTextSi tablet at bedtime as needed Orally Once a day; Note: Source Status: Not-Taking\PRN; Provider: Dash Abraham Start: 11-07-2021 take 1 tablet by jordin every twenty-four hours traZODone HCl 50 MG 1 tablet at bedtime as needed Orally Once a day Nov, Not-Taking/PRN triamcinolone acetonide 40 mg/ml injectable suspension (20 sources) Corticosteroid Start: 06-12-2022 Kenalog-40 Jan, 1.5 cc Start: 2021 Kenalog -40 mg Dec, 60 mg Start: 02-07-2020 Kenalog -40 mg February, 1.5 mg Start: 11-26-2018 KENALOG - 10 m g Nov, 1.5 cc Start: 07-03-2012 KENALOG - 10 m g Jun, 1.5 mL 24 hr venlafaxine 37.5 mg extended release oral capsule (12 sources) Serotonin and Norepinephrine Reuptake Inhibitor Start: 11-27-2023 End: 01-28-2024 take 1 capsule by mouth once daily at mealtime Venlafaxine Discontinued 37.5 MG PO Daily November 27, 2023 1:00am January 28, 2024 9:51am FreeTextSi capsule with food Orally Once a day; Note: Source Status: Not-Taking\PRN; Provider: Dash Abraham Start: 07-24-2023 take 1 capsule by mo [facility] every twenty-four hours Venlafaxine HCl ER 37.5 MG 1 capsule with food Orally Once a day Jul, Not-Taking/PRN Problems Active Problems Problem Classification Problem Date Documented Da te Episodic/Chronic Abdominal pain (6 sources) Abdominal pain; Translations: [Unspecified abdominal pain] 09-13-2022 Episodic Adjustment disorders (20 sources) Family tension; Translations: [Reaction to severe stress, unspecified] Onset: 2 Resolved: 2 Chronic Administrative/social admission (1 source) Encounter for examination for admission to educational institution Episodic Anxiety disorders (20 sources) Mixed anxiety and depressive disorder; Translations: [Anxiety disorder, unspecified] Onset: 1 Resolved: 1 Chronic Cardiac dysrhythmias (1 source) Tachycardia, unspecified Episodic Disorders of lipid metabolism (20 sources) Hyperlipidemia; Translations: [Hyperlipidemia, unspecified] Onset: 3 Chronic Disorders of teeth and jaw (16 sources) Periapical abscess without sinus tract; Translations: [Periapical abscess without sinus] Episodic Esophageal disorders (20 sources) Gastroesophageal reflux disease; Translations: [Gastro-esophageal reflux disease without esophagitis] Onset: 3 06-02-2020 Chronic Essential hypertension (20 sources) Essential hypertension; Translations: [Essential (primary) hypertension] Onset: 1 Resolved: 2 Chronic Essential hypertension (1 source) Essential hypertension Onset: 8 Fluid and electrolyte disorders (1 source) Hypokalemia Episodic Gastritis and duodenitis (1 source) Gastritis, unspecified, without bleeding; Translations: [GASTRITIS UNS WITHOUT BLEEDING] Onset: 3 Episodic Genitourinary symptoms and ill-defined conditions (3 sources) Frequency of micturition; Translations: [Dysuria] Episodic Headache; including migraine (1 source) Migraine, unspecified, not intractable, without status migrainosus; Translations: [MIGRAINE UNS NOT INTRACT W/O SM] Onset: 2 Chronic Immunizations and screening for infectious disease (1 source) Contact with and (suspected) exposure to other viral communicable diseases Episodic Malaise and fatigue (4 sources) Weakness; Translations: [Other fatigue] Onset: 2 Episodic Mood disorders (10 sources) Mood swings; Translations: [Unspecified mood [affective] disorder] Chronic Nausea and vomiting (4 sources) Nausea with vomiting, unspecified; Translations: [NAUSEA WITH VOMITING UNSPECIFIED] Onset: 2 Episodic Noninfectious gastroenteritis (2 sources) Noninfectious enteritis; Translations: [Noninfective gastroenteritis and colitis, unspecified] Onset: 3 Episodic Nonspecific chest pain (20 sources) Chest pain; Translations: [Chest pain, unspecified] Episodic Other aftercare (1 source) Other fci (current) drug therapy; Translations: [OTH PLATE ROLLER CURRENT DRUG THERAPY] Onset: 3 Episodic Other bone disease and musculoskeletal deformities (16 sources) Somatic dysfunction of rib; Translations: [Segmental and somatic dysfunction of rib cage] Episodic Other bone disease and musculoskeletal deformities (16 sources) Somatic dysfunction of lumbar region; Translations: [Segmental and somatic dysfunction of lumbar region] Episodic Other bone disease and musculoskeletal deformities (16 sources) Somatic dysfunction of thoracic region; Translations: [Segmental and somatic dysfunction of thoracic region] Episodic Other bone disease and musculoskeletal deformities (20 sources) Cervical somatic dysfunction; Translations: [Segmental and somatic dysfunction of cervical region] Episodic Other bone disease and musculoskeletal deformities (16 sources) Somatic dysfunction of sacral region; Translations: [Segmental and somatic dysfunction of sacral region] Episodic Other circulatory disease (1 source) Other specified symptoms and signs involving the circulatory and respiratory systems Episodic Other connective tissue disease (20 sources) Polymyalgia; Translations: [Polymyalgia rheumatica] Chronic Other connective tissue disease (2 sources) Polymyalgia rheumatica Onset: 2 Resolved: 2 Chronic Other connective tissue disease (16 sources) Pain in right heel; Translations: [Pain in right foot] Episodic Other connective tissue disease (16 sources) Pain in left lower limb; Translations: [Pain in left leg] Episodic Other connective tissue disease (1 source) Pain in right leg Episodic Other connective tissue disease (1 source) Pain in left leg Episodic Other connective tissue disease (1 source) Pain in leg, unspecified Episodic Other connective tissue disease (1 source) Pain in right hand Episodic Other connective tissue disease (3 sources) Trochanteric bursitis; Translations: [Trochanteric bursitis, right hip] 01-28-2024 Episodic Other connective tissue disease (3 sources) Trochanteric bursitis, right hip; Translations: [Enthesopathy of hip region] 01-28-2024 Episodic Other diseases of bladder and urethra (20 sources) Spasm of bladder; Translations: [Other specified disorders of bladder] Chronic Other diseases of bladder and urethra (2 sources) Other specified disorders of bladder Onset: 2 Resolved: 2 Chronic Other gastrointestinal disorders (20 sources) Irritable bowel syndrome; Translations: [Irritable bowel syndrome without diarrhea] 06-02-2020 Chronic Other gastrointestinal disorders (20 sources) Irritable bowel syndrome characterized by constipation; Translations: [Irritable bowel syndrome with constipation] Chronic Other gastrointestinal disorders (4 sources) Irritable bowel syndrome without diarrhea; Translations: [Irritable bowel syndrome] Chronic Other gastrointestinal disorders (20 sources) Constipation; Translations: [Constipation, unspecified] 06-02-2020 Episodic Other gastrointestinal disorders (1 source) Constipation, unspecified Episodic Other hereditary and degenerative nervous system conditions (20 sources) Restless legs; Translations: [Restless legs syndrome] Chronic Other hereditary and degenerative nervous system conditions (2 sources) Restless legs syndrome Chronic Other lower respiratory disease (4 sources) Rib pain; Translations: [Pleurodynia] Episodic Other lower respiratory disease (20 sources) Persistent cough; Translations: [Persistent cough] Episodic Other lower respiratory disease (20 sources) Cough; Translations: [Recurrent cough] Episodic Other lower respiratory disease (1 source) Other forms of dyspnea Episodic Other nervous system disorders (20 sources) Skin sensation disturbance; Translations: [Paresthesia of skin] Episodic Other nervous system disorders (1 source) Paresthesia of skin Episodic Other nutritional; endocrine; and metabolic disorders (20 sources) Body mass index 30+ - obesity; Translations: [Body mass index (BMI) 36.0-36.9, adult] 11-28-2023 Chronic Other nutritional; endocrine; and metabolic disorders (20 sources) Obesity; Translations: [Other obesity due to excess calories] 01-28-2024 Chronic Other nutritional; endocrine; and metabolic disorders (20 sources) Obese class I; Translations: [Body mass index (BMI) 33.0-33.9, adult] Chronic Other nutritional; endocrine; and metabolic disorders (1 source) Body mass index (BMI) 34.0-34.9, adult Chronic Other nutritional; endocrine; and metabolic disorders (1 source) Body mass index (BMI) 33.0-33.9, adult Chronic Other nutritional; endocrine; and metabolic disorders (12 sources) Obesity, unspecified; Translations: [Obesity, unspecified] Chronic Other nutritional; endocrine; and metabolic disorders (5 sources) Body mass index (BMI) 32.0-32.9, adult; Translations: [Body Mass Index 32.0-32.9, adult] Chronic Other nutritional; endocrine; and metabolic disorders (5 sources) Body mass index (BMI) 31.0-31.9, adult; Translations: [Body Mass Index 31.0-31.9, adult] Chronic Other nutritional; endocrine; and metabolic disorders (3 sources) Body mass index (BMI) 30.0-30.9, adult Chronic Other nutritional; endocrine; and metabolic disorders (2 sources) Other obesity Chronic Other nutritional; endocrine; and metabolic disorders (16 sources) Excessive thirst; Translations: [Polydipsia] Episodic Other nutritional; endocrine; and metabolic disorders (12 sources) Overweight in adulthood with body mass index of 25 or more but less than 30; Translations: [Body mass index (BMI) 29.0-29.9, adult] Episodic Other nutritional; endocrine; and metabolic disorders (1 source) Body mass index (BMI) 29.0-29.9, adult Episodic Other nutritional; endocrine; and metabolic disorders (1 source) Abnormal weight gain; Translations: [Abnormal weight gain] Onset: 4 Episodic Other skin disorders (1 source) Dyshidrosis [pompholyx] Episodic Other upper respiratory disease (5 sources) Seasonal allergy; Translations: [Other seasonal allergic rhinitis] Chronic Other upper respiratory disease (19 sources) Allergic rhinitis due to animal hair and dander; Translations: [Allergic rhinitis due to animal (cat) (dog) hair and dander] Chronic Other upper respiratory disease (14 sources) Seasonal allergic rhinitis; Translations: [Other seasonal allergic rhinitis] Chronic Other upper respiratory disease (3 sources) Other seasonal allergic rhinitis Onset: 2 Resolved: 2 Chronic Other upper respiratory infections (20 sources) Pain in throat; Translations: [Acute pharyngitis, unspecified] Episodic Residual codes; unclassified (20 sources) Edema of lower extremity; Translations: [Localized edema] Episodic Residual codes; unclassified (16 sources) Edema of hand; Translations: [Localized edema] Episodic Residual codes; unclassified (15 sources) Difficulty sleeping ; Translations: [Sleep disorder, unspecified] Episodic Residual codes; unclassified (20 sources) Insomnia; Translations: [Insomnia, unspecified] 11-27-2023 Episodic Residual codes; unclassified (2 sources) Edema, unspecified Episodic Residual codes; unclassified (4 sources) Past history of procedure; Translations: [Other specified postprocedural states] 11-27-2023 Episodic Spondylosis; intervertebral disc disorders; other back problems (20 sources) Neck pain; Translations: [Cervicalgia] Episodic Thyroid disorders (20 sources) Hypothyroidism; Translations: [Hypothyroidism, unspecified] Onset: 4 11-27-2023 Chronic Unclassified (20 sources) Abnormal electrocardiogram [ECG] [EKG]; Translations: [Electrocardiogram abnormal] Onset: 8 Episodic Unclassified (1 source) Unknown / UNK(Unknown) Onset: 7 Unclassified (2 sources) Abnormal electrocardiogram [ECG] [EKG] / R94.31(ICD-9) Onset: 8 Unclassified (1 source) Other chest pain / R07.89(ICD-9) Onset: 8 Unclassified (1 source) CONTACT W/AND (SUSP) EXPOS COVID-19; Translations: [CONTACT W/AND (SUSP) EXPOS COVID-19] Onset: 2 Unclassified (2 sources) LOW BACK PAIN, UNSPECIFIED; Translations: [LOW BACK PAIN, UNSPECIFIED] Onset: 2 Unclassified (1 source) PERSONAL HISTORY OF COVID-19; Translations: [PERSONAL HISTORY OF COVID-19] Onset: 2 Unclassified (2 sources) COUGH, UNSPECIFIED; Translations: [COUGH, UNSPECIFIED] Onset: 2 Unclassified (1 source) Pain in right knee; Translations: [Pain in right knee] Onset: 3 Viral infection (3 sources) COVID-19; Translations: [COVID-19] Onset: 2 Past or Other Problems Problem Classification Problem Date Documented Da te Episodic/Chronic Diabetes mellitus without complication (20 sources) Hyperglycemia; Translations: [Hyperglycemia, unspecified] Onset: 06-18-2023 Episodic Fever of unknown origin (4 sources) Fever, unspecified; Translations: [FEVER UNSPECIFIED] Onset: 09-18-2022 Episodic Mood disorders (14 sources) Mood swings; Translations: [Emotional lability] Onset: 06-18-2023 Episodic Other bone disease and musculoskeletal deformities (1 source) Segmental and somatic dysfunction of cervical region Onset: 11-07-2021 Resolved: 11-07-2021 Episodic Other bone disease and musculoskeletal deformities (2 sources) Segmental and somatic dysfunction of thoracic region Onset: 11-07-2021 Resolved: 05-23-2022 Episodic Other bone disease and musculoskeletal deformities (2 sources) Segmental and somatic dysfunction of rib cage Onset: 11-07-2021 Resolved: 05-23-2022 Episodic Other bone disease and musculoskeletal deformities (2 sources) Segmental and somatic dysfunction of lumbar region Onset: 11-07-2021 Resolved: 05-23-2022 Episodic Other bone disease and musculoskeletal deformities (1 source) Segmental and somatic dysfunction of sacral region Onset: 11-07-2021 Resolved: 11-07-2021 Episodic Other bone disease and musculoskeletal deformities (1 source) Segmental and somatic dysfunction of pelvic region Onset: 05-23-2022 Resolved: 05-23-2022 Episodic Other lower respiratory disease (1 source) Shortness of breath Onset: 04-15-2022 Resolved: 04-15-2022 Episodic Other non-traumatic joint disorders (1 source) Pain in unspecified joint; Translations: [PAIN IN UNSPECIFIED JOINT] Onset: 05-13-2022 Episodic Other non-traumatic joint disorders (2 sources) Pain in left knee; Translations: [Pain in left knee] Onset: 09-05-2023 Episodic Other skin disorders (1 source) Other hypertrophic disorders of the skin Onset: 05-23-2022 Resolved: 05-23-2022 Episodic Pleurisy; pneumothorax; pulmonary collapse (1 source) Pleurisy Onset: 2021 Resolved: 2021 Episodic Residual codes; unclassified (2 sources) Sleep disorder, unspecified Onset: 11-07-2021 Resolved: 2021 Episodic Residual codes; unclassified (1 source) Insomnia, unspecified Onset: 02-05-2022 Resolved: 02-05-2022 Episodic Residual codes; unclassified (1 source) Localized edema Onset: 05-23-2022 Resolved: 05-23-2022 Episodic Residual codes; unclassified (1 source) Other specified postprocedural states; Translations: [OTH SPECIFIED POSTPROCEDURAL STATES] Onset: 09-22-2022 Episodic Residual codes; unclassified (1 source) Acquired absence of both cervix and uterus; Translations: [ACQUIRED ABSENCE BOTH CERVIX AND UTERUS] Onset: 02-28-2022 Episodic Unclassified (1 source) R10.32 Onset: 09-10-2017 Unclassified (4 sources) Lumbar pain M54.50 Onset: 11-07-2021 Resolved: 05-23-2022 Unclassified (2 sources) History of COVID-19 Z86.16 Onset: 04-15-2022 Resolved: 05-06-2022 Unclassified (20 sources) Unclassified (3 sources) Persistent cough R05.3 Onset: 05-06-2022 Resolved: 05-23-2022 Unclassified (1 source) Recurrent cough R05.8 Unclassified (1 source) LOW BACK PAIN, UNSPECIFIED; Translations: [LOW BACK PAIN, UNSPECIFIED] Onset: 05-12-2022 Unclassified (1 source) COUGH, UNSPECIFIED; Translations: [COUGH, UNSPECIFIED] Onset: 03-19-2022 Results Test Name Value Interpretation Reference Range Facility Cortisolon 04-07-2024 Cortisol 12.5 ug/dL Normal [facility] Comment on above: Result Comment: Refe rence range: AM 6 - 24 ug/dl PM <10 ug/dl [facility] dispatcher tugboat and method: REJI UNICEL DXI, POLYCLONAL ANTIBODY CORTISOL ASSAY. PERFORMED BY: [place] [address] PATHOLOGIST RECEPTION AGENT BOGDAN ZIMMERMAN M.D. Performed By: #### F SH, CMP, LIPID, TSH3, CBC, [facility]C [facility] #### [place] [address] [place] #### ESTRADIOL #### [facility] , Estradiolon 04-07-2024 Estradiol 243.0 pg/mL Normal . [facility] Comment on above: Result Comment: Adul t Female Range Follicular phase 12.5 - 166.0 Ovulation phase 85.8 - 498.0 Luteal phase 43.8 - 211.0 Postmenopausal <6.0 - 54.7 1st trimester 215.0 - >4300.0 Kathi ECLIA methodology Performed at: - [facility] [id number] Healthcare Risk Control Consultant: Damir Young PhD, Phone: [phone] PERFORMED BY: [place] [address] PATHOLOGIST RECEPTION AGENT BOGDAN ZIMMERMAN M.D. Performed By: #### F SH, CMP, LIPID, TSH3, CBC, A1C [facility] e[facility] #### [address] #### ESTRADIOL #### [facility] , Follicle Stimulating Hormone on 04-07-2024 Follicle Stimulating Hormone 4.9 m[iU]/mL Normal [facility] Comment on above: Result Comment: FEMA LE NORMALS (PREMENOPAUSE) MID-FOLLICULAR PHASE: 3.9-8.8 mIU/mL MID-CYCLE PEAK: 4.5-22.5 mIU/mL MID-LUTEAL PHASE: 1.8-5.1 mIU/mL FEMALE NORMALS (POSTMENOPAUSE): 16.7-113.6 mIU/mL MALE NORMALS: 1.3-19.3 mIU/mL Performed By: #### F SH, CMP, LIPID, TSH3, CBC, A1C [facility] eA #### [facility] [address] [place] [address] [place] #### ESTRADIOL #### [facility] , Follitropin [Units/volume] i n Serum or PlasmaOrdered By: Micheal Ocasio on 04-07-2024 Follitropin Qn 4.9 m[IU]/mL [facility] Comment on above: FEMALE NORMALS (THIERNO ENOPAUSE) MID-FOLLICULAR PHASE: 3.9-8.8 mIU/mL MID-CYCLE PEAK: 4.5-22.5 mIU/mL MID-LUTEAL PHASE: 1.8-5.1 mIU/mLFEMALE NORMALS (POSTMENOPAUSE): 16.7-113.6 mIU/mLMALE NORMALS: 1.3-19.3 mIU/mL Random cortisol measurementO rdered By: Micheal Ocasio on 04-07-2024 Cortisol [Mass/Vol] 12.5 ug/dL [facility] Comment on above: [facility] dispatcher tugboat and method:REJI UNICEL DXI, POLYCLONAL ANTIBODY CORTISOL ASSAY.Reference range: AM 6 - 24 ug/dl PM <10 ug/dl Thyrotropin [Units/volume] i n Serum or PlasmaOrdered By: Micheal Ocasio on 04-07-2024 TSH Qn 3.28 m[IU]/L Normal 0.45-5.33 [facility] Comment on above: Performed By: #### F SH, CMP, LIPID, TSH3, CBC, A1C [facility] e[facility] #### [address] #### ESTRADIOL #### [facility] , Thyroxine (T4) free [Mass/vo lume] in Serum or PlasmaOrdered By: Micheal Ocasio on 04-07-2024 Free T4 [Mass/Vol] 0.86 ng/dL Normal 0.61-1.12 [facility] Comment on above: Performed By: #### F SH, CMP, LIPID, TSH3, CBC, A1C [facility] e[facility] #### [facility] [address] [place] [address] [place] #### ESTRADIOL #### [facility] , Laboratory - Chemistry and C hemistry - challengeon 03-02-2024 Bilirubin Ql (U) Negative [facility] Glucose (U) [Mass/Vol] Negative [facility] Ketones Ql (U) Negative [facility] pH (U) 6.0 [pH] [facility] Specific gravity (U) [Rel density] 1.025 [facility] Urobilinogen (U) [Mass/Vol] 0.2 mg/dL [facility] Laboratory - Urinalysison Leukocyte esterase Test strip Ql (U) Negative [facility] Nitrite Ql (U) Negative [facility] Protein Ql (U) Negative [facility] No Panel Informationon 03-02 Urine Occult Blood Negative [facility] Heart and Vascular Office/Cl inic Noteon 01-20-2024 Heart and Vascular Office/Clinic Note Chief Complaint here for test results EC Stress/ECHO History of Present Illness The patient presents for an evaluation of palpitations. She is feeling the same. She experiences mild fatigue all the time. Occasionally, she still feels the sensation, and there have been no significant changes in her condition. She explains that she can manage the sensation but is not overly concerned. She speculates that the sensation might be due to stress and attributes it to her being under stress. She occasionally experiences a sensation of tachycardia. At night, when she lies down, she begins to feel anxious. She took melatonin at a lower dose, but it did provide any relief. Someone suggested her to try magnesium because her legs really bother her a lot. She was taking Wegovy, but she cannot afford it because her insurance will not cover it. She was considering retuning to Adipex, but it made her heart race a lot. Review of Systems Constitutional: no fever, no sweats, no weakness. Positive for fatigue. Skin: no rash, no lesions, no bruising/petechiae ENMT: no sore throat, no congestion, no hoarseness Respiratory: no shortness of breath, no cough, no orthopnea, no wheezing Cardiovascular: no chest pain, no edema, positive for palpitations. Gastrointestinal: no nausea, no vomiting, no diarrhea, no GI bleeding Genitourinary: no anuria/oliguria no hematuria Musculoskeletal: no back pain, no trauma Neurologic: no headache, no dizziness, no numbness, no weakness Psychiatric: no sleeping problems, no irritability, Positive for anxiety/depression. Heme/Lymph: no bleeding tendency, no bruising tendency Allergy/Immunologic: no recurrent infections, no impaired immunity Additional ROS info: Except as noted in the above Review of Systems and in the History of Present Illness all other systems have been reviewed and are negative or noncontributory Physical Exam Vitals & Measurements HR: 101(Peripheral) BP: 132/84 SpO2: 97% HT: 59 in HT: 150 cm WT: 71.5 kg WT: 157.3 lb BMI: 31.78 General: alert, no acute distress Skin: warm, dry intact Head: atraumatic, normocephalic Neck: trachea midline, no JVD, no bruit Eye: normal conjunctiva, sclera clear ENMT: oral mucosa moist Cardiovascular: regular rate and rhythm, no murmur, normal peripheral perfusion Respiratory: lungs CTA, respirations non labored Chest wall: no deformity. Gastrointestinal: soft, non-distended, no tenderness, no guarding. Back: no tenderness, normal ROM, normal alignment. Extremities: no edema, no deformity, no trauma Neurological: oriented x 4, LOC appropriate for age, sensation equal & normal bilaterally, speech normal Psychiatric: cooperative, affect appropriate for age, normal judgement, normal psychiatric thoughts. Assessment/Plan 1. Palpitations. Her heart testing was good. Her stress echo and echocardiogram were both normal. There is no evidence of blockage. She was advised to drink some milk, read a book, or try melatonin. She can continue Adipex. Follow-up The patient will follow up as needed. ATTESTATION: Documentation services were performed after patient or guardian consented to allow [employer] to record this visit. KIRSTY resource conservation specialist and provider reviewed before signing. KIRSTY: Fran Fabian. Portions of this record may have been created with voice recognition artificial intelligence software, specifically [employer], [employer] and or [employer]. Substitutions may have occurred due to the inherent limitations of voice recognition and artificial intelligence software. Follow-up No qualifying data available Problem List/Past Medical History Ongoing No qualifying data Historical No qualifying data Procedure/Surgical History Gallbladder, Hysterectomy. Medications amLODIPine 5 mg Tab, 5 mg= 1 tab(s), Oral, Daily olmesartan 40 mg Tab, 40 mg= 1 tab(s), Oral, Daily omeprazole 40 mg Cap-DR, 40 mg= 1 cap(s), Oral, Daily Patient Specific Meds, See Instructions spironolactone 25 mg Tab, 25 mg= 1 tab(s), Oral, Daily Zofran ODT 4 mg Tab-Dis, 4 mg= 1 tab(s), Oral, q8hr, Not taking Allergies Bactrim (vomiting) vancomycin (hives) Social History Alcohol Current, Beer, Wine, 1-2 times per month, 02/04/2023 Substance Abuse Tobacco Family History Acute myocardial infarction: Father. Hypertension: Father. Normal [facility] Comment on above: Result Comment: Elec tronically Signed By: Jasmin NGUYỄN, Aly Tim\.br\Date and Time Signed: 01/20/24 06:16 EDT\.br\Electronically Co-Signed By: Fran Fabian\.br\Date and Time Co-Signed: 12/26/23 16:26 EDT BI MAMMOGRAM SCREENING TOMOS SAE BILATERALon 01-12-2024 BI MAMMOGRAM SCREENING TOMOSYNTHESIS BILATERAL This is a summary report. The complete report is available in the patient's medical record. If you cannot access the medical record, please contact the sending organization for a detailed fax or copy. EXAMINATION: BI MAMMOGRAM SCREENING TOMOSYNTHESIS BILATERAL CLINICAL HISTORY: screening COMPARISON: [facility] from 2022, 2020. RESULT: 3-D tomosynthesis imaging of the bilateral breasts was performed. Density: Heterogeneously dense [3] There are no suspicious masses or asymmetries, areas of architectural distortion or suspicious areas of microcalcifications. IMPRESSION: BIRADS 1 - Negative Recommended follow-up: Routine Screening Mamm Board Certified Radiologists. Accredited by the ACR and FDA. MAMMOGRAPHY IS VERY IMPORTANT TO YOUR HEALTH. THE [place] [employer] GUIDELINES RECOMMEND THAT WOMEN 40 YEARS OF AGE AND OLDER SHOULD HAVE A MAMMOGRAM EVERY YEAR. A REMINDER LETTER WILL BE SENT AT THE APPROPRIATE TIME. THIS FACILITY UTILIZES A REMINDER SYSTEM TO ENSURE ALL PATIENTS RECEIVE REMINDER NOTIFICATIONS AT THE APPROPRIATE TIME BASED ON THE RECOMMENDATIONS OF THIS EXAM. THIS INCLUDES REMINDERS FOR ROUTINE SCREENING MAMMOGRAMS, DIAGNOSTIC MAMMOGRAMS IN WHICH THE PATIENT IS ASKED TO RETURN FOR ADDITIONAL VIEWS, OR OTHER BREAST IMAGING INTERVENTIONS WHEN APPROPRIATE. THE PATIENT WILL BE PLACED IN THE APPROPRIATE REMINDER SYSTEM INCLUDING A REMINDER AT THE APPROPRIATE TIME FOR ANY PENDING ADDITIONAL VIEWS. ELECTRONICALLY SIGNED BY: Brown Alvarenga MD Normal Not Available Comment on above: Order Comment: Last mammogram 11-22-22 NOM. Us or spot compression prn Physician Orderon 12-29-2023 Physician Order [id number]# 1.00TIFF Normal [facility] Ambulatory Visit Summaryon 0 12-26-2023 Ambulatory Visit Summary BRANDON MARTIN :1975 Visit Date:12/26/2023 Ambulatory Visit Instructions Your Care Team Attending Physician - Jasmin NGUYỄN, Aly Tim Primary Care Physician - MICHEAL OCASIO DO Referring Physician - NONE, XXXX This Is Your Medications List Patient Specific Meds amlodipine (amLODIPine 5 mg Tab) olmesartan (olmesartan 40 mg Tab) omeprazole (omeprazole 40 mg Cap-DR) ondansetron (Zofran ODT 4 mg Tab-Dis) spironolactone (spironolactone 25 mg Tab) Procedures Performed Gallbladder, Hysterectomy. Discharge Vitals Heart Rate (Peripheral) 101 Blood Pressure 132/84 Height 150 cm Height 59 in Weight 71.5 kg Weight 157.3 lb BMI 31.78 Medications What How Much When Instructions Unchanged amlodipine (amLODIPine 5 mg Tab) 1 Tablets By Mouth Every day Unchanged olmesartan (olmesartan 40 mg Tab) 1 Tablets By Mouth Every day Unchanged omeprazole (omeprazole 40 mg Cap-DR) 1 Capsules By Mouth Every day Unchanged ondansetron (Zofran ODT 4 mg Tab-Dis) 1 Tablets By Mouth Every 8 hours Unchanged Patient Specific Meds See instructions Unchanged spironolactone (spironolactone 25 mg Tab) 1 Tablets By Mouth Every day Allergies Bactrim (vomiting) vancomycin (hives) Patient Survey You may receive a survey via text or e-mail asking about your office visit. Please share your experience with us by completing your survey. We appreciate your feedback and thank you for choosing us for your care. [facility] Stress EKG Tracingson 2023 Stress EKG Tracings [id number]#1 .00TIFF [facility] Consent for Treatmenton 12-04 Consent for Treatment [id number]#1 .00TIFF [facility] HbA1c HPLC (Bld) [Mass fract ion]on 11-28-2023 HbA1c (Bld) [Mass fraction] 5.8 % [facility] Consent for Treatmenton 11-06 Consent for Treatment [id number]#1 .00TIFF [facility] Heart and Vascular Office/Cl inic Noteon 11-10-2023 Heart and Vascular Office/Clinic Note Chief Complaint New patient abnormal ekg History of Present Illness Brandon Martin is a 47-year-old female who presents today for an evaluation of chest pain. The patient reports an onset of symptoms on the evening of 08/28/2023, which led her to seek emergency care due to chest discomfort and a sensation of heaviness. Concurrently, she experienced a feeling of tightness and heaviness in her arm. A comprehensive medical evaluation was conducted, which yielded normal results. Since then, the patient periodically suffers from chest heaviness and a combination of tingling and heaviness in her arm, particularly when lying down to sleep. She recalls these symptoms first occurring in either 2005 or 2006. Blood tests were conducted, revealing an elevated CRP level. A cardiac evaluation was also performed at that time, with normal results. She notes that her CRP level is consistently elevated. The patient was diagnosed with IBS. She underwent a treadmill stress test between 16 to 18 years ago. The patient is a mother to 7 children and is currently caring for a total of 8 children. She feels constantly fatigued. She reports experiencing occasional palpitations, describing a sensation of her heart fluttering slightly while at rest. The patient has attempted weight loss via Wegovy administration, but her insurance does not provide coverage. She is contemplating resuming Adipex-P. Previously, she experienced severe tachycardia, for which she monitors using an Apple watch, and it has seemingly resolved. She reports discontinuing physical exercise due to severe post-exercise headaches and prolonged tachycardia. The patient's father has a history of stent placement and blood pressure issues. Review of Systems PHQ Score Initial Depression Screen Score: 0 SCORE Constitutional: no fever, no sweats, no weakness, positive for fatigue Skin: no rash, no lesions, no bruising/petechiae ENMT: no sore throat, no congestion, no hoarseness Respiratory: no shortness of breath, no cough, no orthopnea, no wheezing Cardiovascular: positive for chest pain, positive for occasional palpitations, no edema Gastrointestinal: no nausea, no vomiting, no diarrhea, no GI bleeding Genitourinary: no anuria/oliguria no hematuria Musculoskeletal: positive in tingling and heaviness in arm, no back pain, no trauma Neurologic: no headache, no dizziness, no numbness, no weakness Psychiatric: no sleeping problems, no irritability, no anxiety/depression. Heme/Lymph: no bleeding tendency, no bruising tendency Allergy/Immunologic: no recurrent infections, no impaired immunity Additional ROS info: Except as noted in the above Review of Systems and in the History of Present Illness all other systems have been reviewed and are negative or noncontributory Physical Exam Vitals & Measurements HR: 80(Peripheral) BP: 116/79 SpO2: 97% HT: 59 in HT: 150 cm WT: 70.6 kg WT: 155.32 lb BMI: 31.38 General: alert, no acute distress Skin: warm, dry intact Head: atraumatic, normocephalic Neck: trachea midline, no JVD, no bruit Eye: normal conjunctiva, sclera clear ENMT: oral mucosa moist Cardiovascular: regular rate and rhythm, no murmur, normal peripheral perfusion Respiratory: lungs CTA, respirations non labored Chest wall: no deformity. Gastrointestinal: soft, non-distended, no tenderness, no guarding. Back: no tenderness, normal ROM, normal alignment. Extremities: no edema, no deformity, no trauma Neurological: oriented x 4, LOC appropriate for age, sensation equal & normal bilaterally, speech normal Psychiatric: cooperative, affect appropriate for age, normal judgement, normal psychiatric thoughts. Assessment/Plan 1. Chest pain. We will order a stress test and echocardiogram. ATTESTATION: Portions of this record may have been created with voice recognition artificial intelligence software, specifically [employer], [employer] and or [employer]. Substitutions may have occurred due to the inherent limitations of voice recognition and artificial intelligence software. Documentation services were performed after patient or guardian consented to allow [employer] to record this visit. KIRSTY resource conservation specialist and provider reviewed before signing. KIRSTY: Thea De La Garza. Follow-up No qualifying data available Problem List/Past Medical History Ongoing No qualifying data Historical No qualifying data Procedure/Surgical History Gallbladder, Hysterectomy. Medications amLODIPine 5 mg Tab, 5 mg= 1 tab(s), Oral, Daily olmesartan 40 mg Tab, 40 mg= 1 tab(s), Oral, Daily Zofran ODT 4 mg Tab-Dis, 4 mg= 1 tab(s), Oral, q8hr Allergies Bactrim (vomiting) vancomycin (hives) Social History Alcohol Current, Beer, Wine, 1-2 times per month, 02/04/2023 Substance Abuse Tobacco Family History Acute myocardial infarction: Father. Hypertension: Father. Normal [facility] Comment on above: Result Comment: Elec tronically Signed By: Aly Castellanos MD\.br\Date and Time Signed: 11/10/23 08:10 EST\.br\Electronically Co-Signed By: Thea De La Garza\.br\Date and Time Co-Signed: 10/30/23 18:42 EST Referrals Officeon 4 Referrals Office [id number]# 1.00TIFF [facility] Insurance Correspondenceon 0 10-31-2023 Insurance Correspondence [id number]# 1.00TIFF [facility] Consent for Treatmenton 10-07 Consent for Treatment [id number]#1 .00TIFF [facility] Physician Orderon 10-30-2023 Physician Order [id number]# 1.00TIFF [facility] Referrals Officeon 3 Referrals Office [id number]# 1.00TIFF [facility] Referrals Officeon 3 Referrals Office [id number]# 1.00TIFF [facility] DAYDAY Antinuclear Antibodieson 09-05-2023 Antinuclear Abs, IFA Negative Normal . [facility] Comment on above: Result Comment: Nega tive <1:80 Borderline 1:80 Positive >1:80 ICAP nomenclature: AC-0 For more information about Hep-2 cell patterns use ANApatterns.org, the official website for the International Consensus on Antinuclear Antibody (DAYDAY) Patterns (ICAP). Performed at: [address] [id number] Healthcare Risk Control Consultant: Damir Young PhD, Phone: [phone] Performed By: #### F SH, CMP, LIPID, TSH3, CBC, A1C WTH eA #### [address] #### ESTRADIOL #### [facility] , Automated basophil %Ordered By: Lamont Martin on 09-05-2023 Basophils/100 WBC (Bld) 0.7 % Normal . [facility] Comment on above: Performed By: #### C BC #### [address] Automated basophil countOrde red By: Lamont Martin on 09-05-2023 Basophils (Bld) [#/Vol] 0.1 10*3/uL Normal 0.0-0.2 [facility] Comment on above: Result Comment: PERF ORMED BY: [place] [address] PATHOLOGIST RECEPTION AGENT BOGDAN ZIMMERMAN M.D. Performed By: #### C BC #### [address] Automated blood monocyte cou ntOrdered By: Lamont Martin on 09-05-2023 Monocytes (Bld) [#/Vol] 0.6 10*3/uL Normal 0.0-0.8 [facility] Comment on above: Performed By: #### C BC #### [address] Automated eosinophil %Ordere d By: Lamont Martin on 09-05-2023 Eosinophils/100 WBC (Bld) 4.7 % Normal . [facility] Comment on above: Performed By: #### C BC #### [address] Automated eosinophil countOr dered By: Lamont Martin on 09-05-2023 Eosinophils (Bld) [#/Vol] 0.4 10*3/uL Normal 0.0-0.45 [facility] Comment on above: Performed By: #### C BC #### [place] [address] [place] Automated monocyte %Ordered By: Lamont Martin on 09-05-2023 Monocytes/100 WBC (Bld) 6.6 % Normal . [facility] Comment on above: Performed By: #### C BC #### [address] Automated neutrophil %Ordere d By: Lamont Martin on 09-05-2023 Neutrophils/100 WBC (Bld) 56.8 % Normal . [facility] Comment on above: Performed By: #### C BC #### [address] C reactive protein [Mass/vol ume] in Serum or PlasmaOrdered By: Lamont Martin on 09-05-2023 CRP [Mass/Vol] 1.1 mg/dL 0.0-0.5 [facility] C-Reactive Proteinon 023 C-Reactive Protein 1.1 mg/dL High 0.0-0.5 [facility] Comment on above: Result Comment: PERF ORMED BY: [place] [address] PATHOLOGIST RECEPTION AGENT BOGDAN ZIMMERMAN M.D. Performed By: #### A NA, RA, CCP #### [facility] , #### ESR, CRP #### [address] Complete Blood Count Auto Di ffon 09-05-2023 Mean Corpuscular HGB Conc 34.3 g/dL Normal 32.0-35.0 [facility] Comment on above: Performed By: #### C BC #### [place] [address] [place] NRBC% 0.1 /100{WBC} Normal 0-0.5 [facility] Comment on above: Performed By: #### C BC #### [address] Cyclic Citrulliated Pep Abon 09-05-2023 Cyclic Citrulliated Pep Ab 7 Normal 0-19 [facility] Comment on above: Result Comment: Nega tive <20 Weak positive 20 - 39 Moderate positive 40 - 59 Strong positive >59 Performed at: - [facility] [id number] Healthcare Risk Control Consultant: Damir Young PhD, Phone: [phone] PERFORMED BY: [place] [address] PATHOLOGIST RECEPTION AGENT BOGDAN ZIMMERMAN M.D. Performed By: #### F SH, CMP, LIPID, TSH3, CBC, A1C WTH eA #### [address] #### ESTRADIOL #### [facility] , Erythrocyte Sedimentation Ra yari 09-05-2023 ESR (Bld) [Velocity] 15 mm/h Normal 0-19 [facility] Comment on above: Result Comment: PERF ORMED BY: [place] [address] PATHOLOGIST RECEPTION AGENT BOGDAN ZIMMERMAN M.D. Performed By: #### A NA, RA, CCP #### [facility] , #### ESR, CRP #### [facility] [address] [place] [address] Erythrocyte distribution wid th [Ratio] by Automated countOrdered By: Lamont Matrin on 09-05-2023 Erythrocyte distribution width (RBC) [Ratio] 13.2 % Normal 11.9-15.3 [facility] Comment on above: Performed By: #### C BC #### [facility] [address] [place] [address] Erythrocyte sedimentation ra te by Photometric methodOrdered By: Lamont Martin on 09-05-2023 ESR Photometric method (Bld) [Velocity] 15 mm/hr 0-19 [facility] Erythrocytes [#/volume] in B lood by Automated countOrdered By: Lamont Martin on 09-05-2023 RBC (Bld) [#/Vol] 4.63 10*6/uL Normal 3.60-5.00 [facility] Comment on above: Performed By: #### C BC #### [address] Hematocrit [Volume Fraction] of Blood by Automated countOrdered By: Lamont Martin on 09-05-2023 Hematocrit (Bld) [Volume fraction] 39.0 % Normal 34.0-46.4 [facility] Comment on above: Performed By: #### C BC #### [address] Hemoglobin [Mass/volume] in BloodOrdered By: Lamont Martin on 09-05-2023 Hemoglobin (Bld) [Mass/Vol] 13.4 g/dL Normal 11.8-15.4 [facility] Comment on above: Performed By: #### C BC #### [address] Leukocytes [#/volume] correc brenda for nucleated erythrocytes in Blood by Automated counOrdered By: Lamont Martin on 09-05-2023 WBC corrected for nucl RBC Auto (Bld) [#/Vol] 9.4 10*3/uL 3.8-11.6 [facility] Leukocytes [#/volume] in Blo od by Automated countOrdered By: Lamont Martin on 09-05-2023 WBC (Bld) [#/Vol] 9.4 10*3/uL Normal 3.8-11.6 [facility] Comment on above: Performed By: #### C BC #### [place] [address] [place] Lymphocytes [#/volume] in Bl ood by Automated countOrdered By: Lamont Martin on 09-05-2023 Lymphocytes (Bld) [#/Vol] 2.9 10*3/uL Normal 1.00-4.8 [facility] Comment on above: Performed By: #### C BC #### [place] [address] [place] Lymphocytes/100 leukocytes i n Blood by Automated countOrdered By: Lamont Martin on 09-05-2023 Lymphocytes/100 WBC (Bld) 31.2 % Normal . [facility] Comment on above: Performed By: #### C BC #### [address] MCH [Entitic mass] by Automa brenda countOrdered By: Lamont Martin on 09-05-2023 MCH (RBC) [Entitic mass] 28.9 pg Normal 24.7-34.3 [facility] Comment on above: Performed By: #### C BC #### [address] MCHC Auto (RBC) [Mass/Vol]Or dered By: Lamont Martin on 09-05-2023 MCHC (RBC) [Mass/Vol] 34.3 g/dL 32.0-35.0 [facility] MCV [Entitic volume] by Auto mated countOrdered By: Lamont Martin on 09-05-2023 MCV (RBC) [Entitic vol] 84.3 fL Normal 80-100 [facility] Comment on above: Performed By: #### C BC #### [address] Neutrophils [#/volume] in Bl ood by Automated countOrdered By: Lamont Martin on 09-05-2023 Neutrophils (Bld) [#/Vol] 5.3 10*3/uL Normal 1.8-7.7 [facility] Comment on above: Performed By: #### C BC #### [address] Nucleated erythrocytes [Pres ence] in Blood by Automated countOrdered By: Lamont Martin on 09-05-2023 Nucleated RBC Auto Ql (Bld) 0.1 /100{WBC} 0-0.5 [facility] Platelet mean volume [Entiti c volume] in Blood by Automated countOrdered By: Lamont Martin on 09-05-2023 Platelet mean volume (Bld) [Entitic vol] 8.5 fL Normal 6.3-10.7 [facility] Comment on above: Performed By: #### C BC #### [address] Platelets [#/volume] in Bloo d by Automated countOrdered By: Lamont Martin on 09-05-2023 Platelets (Bld) [#/Vol] 269 10*3/uL Normal 150-450 [facility] Comment on above: Performed By: #### C BC #### [facility] [address] Rheumatoid Factoron 09-05-20 23 Rheumatoid Factor 10.4 Normal <14.0 [facility] Comment on above: Result Comment: Perf ormed at: [place] [facility] [id number] [place], [place] [id number] Healthcare Risk Control Consultant: Damir Young PhD, Phone: [phone] Performed By: #### F SH, CMP, LIPID, TSH3, CBC, A1C WTH eA #### [facility] [address] #### ESTRADIOL #### [facility] , Serum homogeneous pattern an tinuclear antibody (DAYDAY) titerOrdered By: Lamont Martin on 09-05-2023 Homogenous nuclear Ab pattern (S) [Titer] N/A [facility] Serum nuclear antibody titer Ordered By: Lamont Martin on 09-05-2023 Nuclear Ab (S) [Titer] Negative . [facility] Comment on above: Negative <1:80 Borde rline 1:80 Positive >1:80ICAP nomenclature: AC-0For more information about Hep-2 cell patterns useANApatterns.org, the official website for theInternational Consensus on Antinuclear Antibody (DAYDAY)Patterns (ICAP).Performed at: [facility] [address] [id number] Director: Damir Young PhD, Phone: [phone] Serum or plasma cyclic adeno sine monophosphate measurement (moles/volume)Ordered By: Lamont Martin on 09-05-2023 Adenosine monophosphate.cyclic [Moles/Vol] 7 units 0-19 [facility] Comment on above: Negative <20 Weak po sitive 20 - 39 Moderate positive 40 - 59 Strong positive >59Performed at: [facility] [id number] Director: Damir Young PhD, Phone: [phone] Serum or plasma rheumatoid f actor measurement (units/volume)Ordered By: Lamont Martin on 09-05-2023 Rheumatoid factor Qn 10.4 [IU]/mL <14.0 [facility] Comment on above: Performed at: [address] [id number] Director: Damir Young PhD, Phone: [phone] Urine 10 SGon 09-05-2023 Albumin DL <= 20 mg/L (U) [Mass/Vol] Negative [facility] pH (U) 5.5 [pH] [facility] Urine 10 SG Negative [facility] Urine 10 SG 1.020 [facility] Urine 10 SG 0.2 [facility] XR KNEE 4+ VIEWS LEFTon 10-2 XR KNEE 4+ VIEWS LEFT XR KNEE 4+ VIEWS L EFT CLINICAL HISTORY: pain no history of trauma reported COMPARISON: None FINDINGS: Four views of the left knee are submitted. The joint spaces intact. No significant effusion. No dislocation. No focal bony abnormality. No acute fracture IMPRESSION: NO ACUTE FRACTURES ELECTRONICALLY SIGNED BY: Rafat Thompson MD Normal Not Available A1C with Estimated Average G luon 06-18-2023 Glucose [Mass/Vol] 105 mg/dL Normal [facility] Comment on above: Order Comment: Reaso n for Exam Hyperglycemia Result Comment: PERF ORMED BY: [place] [address] PATHOLOGIST RECEPTION AGENT BOGDAN ZIMMERMAN M.D. Performed By: #### F SH, CMP, LIPID, TSH3, CBC, A1C [facility] #### [place] [address] [place] #### ESTRADIOL #### [facility] , HbA1c (Bld) [Mass fraction] 5.3 % Normal 4.3-5.6 [facility] Comment on above: Order Comment: Reaso n for Exam Hyperglycemia Result Comment: Incr eased risk for diabetes: 5.7 - 6.4 diabetes: >6.4 glycemic control for adults with diabetes: <7.0 Performed By: #### F SH, CMP, LIPID, TSH3, CBC, A1C WTH eA #### [address] #### ESTRADIOL #### [facility] , Alanine aminotransferase [En zymatic activity/volume] in Serum or PlasmaOrdered By: Micheal Ocasio on 06-18-2023 ALT [Catalytic activity/Vol] 16 U/L Normal 7-52 [facility] Comment on above: Order Comment: Reaso n for Exam Hyperlipidemia Reason for Exam Mood swings Performed By: #### F SH, CMP, LIPID, TSH3, CBC, A1C WTH eA #### [address] #### ESTRADIOL #### [facility] , Albumin [Mass/volume] in Ser um or Plasma by Bromocresol green (BCG) dye binding methoOrdered By: Micheal Ocasio on 06-18-2023 Albumin BCG dye [Mass/Vol] 4.5 g/dL 3.5-5.7 [facility] Alkaline phosphatase [Enzyma tic activity/volume] in Serum or PlasmaOrdered By: Micheal Ocasio on 06-18-2023 ALP [Catalytic activity/Vol] 53 U/L Normal 34-104 [facility] Comment on above: Order Comment: Reaso n for Exam Hyperlipidemia Reason for Exam Mood swings Performed By: #### F SH, CMP, LIPID, TSH3, CBC, A1C WTH eA #### [place] [address] [place] #### ESTRADIOL #### [facility] , Aspartate aminotransferase [ Enzymatic activity/volume] in Serum or PlasmaOrdered By: Micheal Ocasio on 06-18-2023 AST [Catalytic activity/Vol] 14 U/L Normal 13-39 [facility] Comment on above: Order Comment: Reaso n for Exam Hyperlipidemia Reason for Exam Mood swings Performed By: #### F SH, CMP, LIPID, TSH3, CBC, A1C WTH eA #### [facility] [address] [place] [address] [place] #### ESTRADIOL #### [facility] , Automated basophil %Ordered By: Michealflavio Ocasio on 06-18-2023 Basophils/100 WBC (Bld) 0.7 % Normal . [facility] Comment on above: Order Comment: Reaso n for Exam Hyperlipidemia Performed By: #### F SH, CMP, LIPID, TSH3, CBC, A1C WTH eA #### [address] #### ESTRADIOL #### [facility] , Automated basophil countOrde red By: Micheal Ocasio on 06-18-2023 Basophils (Bld) [#/Vol] 0.1 10*3/uL Normal 0.0-0.2 [facility] Comment on above: Order Comment: Reaso n for Exam Hyperlipidemia Result Comment: PERF ORMED BY: [address] [place] [address] PATHOLOGIST RECEPTION AGENT BOGDAN ZIMMERMAN M.D. Performed By: #### F SH, CMP, LIPID, TSH3, CBC, A1C WTH eA #### [address] #### ESTRADIOL #### [facility] , Automated blood monocyte cou ntOrdered By: Micheal Ocasio on 06-18-2023 Monocytes (Bld) [#/Vol] 0.7 10*3/uL Normal 0.0-0.8 [facility] Comment on above: Order Comment: Reaso n for Exam Hyperlipidemia Performed By: #### F SH, CMP, LIPID, TSH3, CBC, A1C WTH eA #### [facility] [address] [place] [address] [place] #### ESTRADIOL #### [facility] , Automated eosinophil %Ordere d By: Micheal Ocasio on 06-18-2023 Eosinophils/100 WBC (Bld) 4.4 % Normal . [facility] Comment on above: Order Comment: Reaso n for Exam Hyperlipidemia Performed By: #### F SH, CMP, LIPID, TSH3, CBC, A1C WTH eA #### [facility] [address] [place] [address] [place] #### ESTRADIOL #### [facility] , Automated eosinophil countOr dered By: Micheal Ocasio on 06-18-2023 Eosinophils (Bld) [#/Vol] 0.5 10*3/uL High 0.0-0.45 [facility] Comment on above: Order Comment: Reaso n for Exam Hyperlipidemia Performed By: #### F SH, CMP, LIPID, TSH3, CBC, A1C WTH eA #### [place] [address] [place] #### ESTRADIOL #### [facility] , Automated monocyte %Ordered By: Micheal Ocasio on 06-18-2023 Monocytes/100 WBC (Bld) 5.7 % Normal . [facility] Comment on above: Order Comment: Reaso n for Exam Hyperlipidemia Performed By: #### F SH, CMP, LIPID, TSH3, CBC, A1C WTH eA #### [facility] [address] [place] [address] [place] #### ESTRADIOL #### [facility] , Automated neutrophil %Ordere d By: Micheal Ocasio on 06-18-2023 Neutrophils/100 WBC (Bld) 60.4 % Normal . [facility] Comment on above: Order Comment: Reaso n for Exam Hyperlipidemia Performed By: #### F SH, CMP, LIPID, TSH3, CBC, A1C WTH eA #### [facility] [address] [place] [address] [place] #### ESTRADIOL #### [facility] , Bilirubin.total [Mass/volume ] in Serum or PlasmaOrdered By: Micheal Ocasio on 06-18-2023 Bilirubin [Mass/Vol] 0.8 mg/dL Normal 0.3-1.[address] [facility] Comment on above: Order Comment: Reaso n for Exam Hyperlipidemia Reason for Exam Mood swings Performed By: #### F SH, CMP, LIPID, TSH3, CBC, A1C WTH eA #### [facility] [address] [place] [address] #### ESTRADIOL #### [facility] , Calcium [Mass/volume] in Ser um or PlasmaOrdered By: Micheal Ocasio on 06-18-2023 Calcium [Mass/Vol] 9.5 mg/dL Normal 8.6-10.3 [facility] Comment on above: Order Comment: Reaso n for Exam Hyperlipidemia Reason for Exam Mood swings Performed By: #### F SH, CMP, LIPID, TSH3, CBC, A1C WTH eA #### [address] #### ESTRADIOL #### [facility] , Carbon dioxide, total [Moles /volume] in Serum or PlasmaOrdered By: Micheal Ocasio on 06-18-2023 CO2 [Moles/Vol] 29.6 mmol/L Normal 21.0-31.0 [facility] Comment on above: Order Comment: Reaso n for Exam Hyperlipidemia Reason for Exam Mood swings Performed By: #### F SH, CMP, LIPID, TSH3, CBC, A1C WTH eA #### [address] #### ESTRADIOL #### [facility] , Chloride [Moles/volume] in S lilia or PlasmaOrdered By: Micheal Ocasio on 06-18-2023 Chloride [Moles/Vol] 104 mmol/L Normal 98-[address] [facility] Comment on above: Order Comment: Reaso n for Exam Hyperlipidemia Reason for Exam Mood swings Performed By: #### F SH, CMP, LIPID, TSH3, CBC, A1C WTH eA #### [place] [address] [place] #### ESTRADIOL #### [facility] , Cholesterol [Mass/volume] in Serum or PlasmaOrdered By: Micheal Ocasio on 09-13-2023 Cholesterol [Mass/Vol] 156 mg/dL Normal 140-200 [facility] Comment on above: Chol less than 200 m g/dl low riskChol 201-239 mg/dl borderline riskChol 240 mg/dl and greater high risk Order Comment: Reaso n for Exam Hyperlipidemia Reason for Exam Mood swings Result Comment: Chol less than 200 mg/dl low risk Chol 201-239 mg/dl borderline risk Chol 240 mg/dl and greater high risk Performed By: #### F SH, CMP, LIPID, TSH3, CBC, A1C WTH eA #### [facility] [address] #### ESTRADIOL #### [facility] , Cholesterol in LDL Calc [Mas s/Vol]Ordered By: Micheal Ocasio on 06-18-2023 Cholesterol in LDL [Mass/Vol] 84 mg/dL 0-100 [facility] Comment on above: LDL ATP III CLASSIFI CATIONLDL less than 100 mg/dL OptimalLDL 100-129 mg/dL Near or above optimalLDL 130-159 mg/dL Borderline highLDL 160-189 mg/dL HighLDL greater than 189 mg/dL Very high Cholesterol in VLDL Calc [Ma ss/Vol]Ordered By: Micheal Ocasio on 06-18-2023 Cholesterol in VLDL [Mass/Vol] 28 mg/dL [facility] Complete Blood Count Auto Di ffon 06-18-2023 Basophils (Bld) [#/Vol] [id number] 10*3/uL Normal 0.0-0.2 10*3/uL [facility] Basophils/100 WBC (Bld) 0.700 % . % N [facility] Other Eosinophils (Bld) [#/Vol] 0.849027255 10*3/uL High 0.0-0.45 10*3/uL [facility] Other Eosinophils/100 WBC (Bld) 4.400 % . % [facility] Erythrocyte distribution width (RBC) [Ratio] 13.200 % Normal 11.9-15.3 % [facility] Hematocrit (Bld) [Volume fraction] 41.300 % Normal 34.0-46.4 % [facility] Hemoglobin (Bld) [Mass/Vol] 13.416233 g/dL Normal 11.8-15.4 g/dL [facility] Lymphocytes (Bld) [#/Vol] 3.015518013 10*3/uL Normal 1.00-4.8 10*3/uL [facility] Lymphocytes/100 WBC (Bld) 28.800 % . % [facility] Other MCH (RBC) [Entitic mass] 28.0000 pg Normal 24.7-34.3 pg [facility] Other MCV (RBC) [Entitic vol] 84.7000 fL Normal 80-100 fL N [facility] Other Monocytes (Bld) [#/Vol] 0.352646254 10*3/uL Normal 0.0-0.8 10*3/uL [facility] Monocytes/100 WBC (Bld) 5.700 % . % N [facility] Other Neutrophils (Bld) [#/Vol] 7.396465594 10*3/uL Normal 1.8-7.7 10*3/uL [facility] Other Neutrophils/100 WBC (Bld) 60.400 % . % [facility] Other Platelet mean volume (Bld) [Entitic vol] 8.5000 fL Normal 6.3-10.7 fL [facility] Other WBC (Bld) [#/Vol] 12.930635550 10*3/uL High 3. 8-11.6 10*3/uL [facility] Other Complete Blood Count Auto Diff 12.5 10*3/uL High 3.8-11.6 10*3/uL [facility] Other Complete Blood Count Auto Diff 33.1 g/dL Normal 32.0-35.0 g/dL [place] [facility] Other Complete Blood Count Auto Diff 0.1 /100{WBC} Normal 0-0.5 /100{WBC} [facility] Other Mean Corpuscular HGB Conc 33.1 g/dL Normal 32.0-35.0 [facility] Comment on above: Order Comment: Reaso n for Exam Hyperlipidemia Performed By: #### F SH, CMP, LIPID, TSH3, CBC, A1C WTH eA #### [facility] [address] [place] [address] [place] #### ESTRADIOL #### [facility] , NRBC% 0.1 /100{WBC} Normal 0-0.5 [facility] Comment on above: Order Comment: Reaso n for Exam Hyperlipidemia Performed By: #### F SH, CMP, LIPID, TSH3, CBC, A1C WTH eA #### [place] [address] [place] #### ESTRADIOL #### [facility] , Complete Blood Count Auto Di ffOrdered By: Micheal Ocasio on 06-18-2023 Platelets (Bld) [#/Vol] 284 10*3/uL Normal 150-450 [facility] Comment on above: Order Comment: Reaso n for Exam Hyperlipidemia Performed By: #### F SH, CMP, LIPID, TSH3, CBC, A1C WTH eA #### [facility] [address] [place] [address] [place] #### ESTRADIOL #### [facility] , RBC (Bld) [#/Vol] 4.88 10*6/uL Normal 3.60-5.00 [facility] Comment on above: Order Comment: Reaso n for Exam Hyperlipidemia Performed By: #### F SH, CMP, LIPID, TSH3, CBC, A1C WTH eA #### [facility] [address] [place] [address] [place] #### ESTRADIOL #### [facility] , Comprehensive Metabolic Pane ck 06-18-2023 Albumin [Mass/Vol] 4.5 g/dL Normal 3.5-5.7 [facility] Comment on above: Order Comment: Reaso n for Exam Hyperlipidemia Reason for Exam Mood swings Performed By: #### F SH, CMP, LIPID, TSH3, CBC, A1C WTH eA #### [place] [address] [place] #### ESTRADIOL #### [facility] , GFR/1.73 sq M.predicted MDRD (S/P/Bld) [Vol rate/Area] mL/min/{1.73_m2} Normal [facility] Comment on above: Order Comment: Reaso n for Exam Hyperlipidemia Reason for Exam Mood swings Performed By: #### F SH, CMP, LIPID, TSH3, CBC, A1C WTH eA #### [address] #### ESTRADIOL #### [facility] , Creatinine [Mass/volume] in Serum or PlasmaOrdered By: Micheal Ocasio on 06-18-2023 Creatinine [Mass/Vol] 0.89 mg/dL Normal 0.60-1.20 [facility] Comment on above: Order Comment: Reaso n for Exam Hyperlipidemia Reason for Exam Mood swings Performed By: #### F SH, CMP, LIPID, TSH3, CBC, A1C WTH eA #### [place] [address] [place] #### ESTRADIOL #### [facility] , Erythrocyte distribution wid th [Ratio] by Automated countOrdered By: Micheal Ocasio on 06-18-2023 Erythrocyte distribution width (RBC) [Ratio] 13.2 % Normal 11.9-15.3 [facility] Comment on above: Order Comment: Reaso n for Exam Hyperlipidemia Performed By: #### F SH, CMP, LIPID, TSH3, CBC, A1C WTH eA #### [address] [place] [address] [place] #### ESTRADIOL #### [facility] , Estradiolon 06-18-2023 Estradiol 279.0 pg/mL Normal . [facility] Comment on above: Order Comment: Reaso n for Exam Mood swings Result Comment: Adul t Female: Follicular phase 12.5 - 166.0 Ovulation phase 85.8 - 498.0 Luteal phase 43.8 - 211.0 Postmenopausal <6.0 - 54.7 1st trimester 215.0 - >4300.0 Kathi ECLIA methodology Performed at: [facility] [id number] Healthcare Risk Control Consultant: Damir Young PhD, Phone: [phone] PERFORMED BY: [place] [address] PATHOLOGIST RECEPTION AGENT BOGDAN ZIMMERMAN M.D. Performed By: #### F SH, CMP, LIPID, TSH3, CBC, A1C WTH eA #### [address] #### ESTRADIOL #### [facility] , Follicle Stimulating Hormone on 06-18-2023 Follicle Stimulating Hormone 3.2 m[iU]/mL Normal [facility] Comment on above: Order Comment: Reaso n for Exam Hyperlipidemia Reason for Exam Mood swings Result Comment: FEMA LE NORMALS (PREMENOPAUSE) MID-FOLLICULAR PHASE: 3.9-8.8 mIU/mL MID-CYCLE PEAK: 4.5-22.5 mIU/mL MID-LUTEAL PHASE: 1.8-5.1 mIU/mL FEMALE NORMALS (POSTMENOPAUSE): 16.7-113.6 mIU/mL MALE NORMALS: 1.3-19.3 mIU/mL PERFORMED BY: [place] [address] PATHOLOGIST RECEPTION AGENT BOGDAN ZIMMERMAN M.D. Performed By: #### F SH, CMP, LIPID, TSH3, CBC, A1C WTH eA #### [address] #### ESTRADIOL #### [facility] , Follitropin [Units/volume] i n Serum or PlasmaOrdered By: Micheal Ocasio on 06-18-2023 Follitropin Qn 3.2 m[IU]/mL [facility] Comment on above: FEMALE NORMALS (THIERNO ENOPAUSE) MID-FOLLICULAR PHASE: 3.9-8.8 mIU/mL MID-CYCLE PEAK: 4.5-22.5 mIU/mL MID-LUTEAL PHASE: 1.8-5.1 mIU/mLFEMALE NORMALS (POSTMENOPAUSE): 16.7-113.6 mIU/mLMALE NORMALS: 1.3-19.3 mIU/mL Glucose [Mass/volume] in Ser um or PlasmaOrdered By: Micheal Ocasio on 06-18-2023 Glucose [Mass/Vol] 90 mg/dL Normal 70-100 [facility] Comment on above: ADA recommended refe rence rangeRandom Glucose Reference Range is dependent on time and content of last meal. Glucose of more than 200 mg/dL in a nonstressed, ambulatory subject supports the diagnosis of Diabetes Mellitus. Order Comment: Reaso n for Exam Hyperlipidemia Reason for Exam Mood swings Result Comment: Jay om Glucose Reference Range is dependent on time and content of last meal. Glucose of more than 200 mg/dL in a nonstressed, ambulatory subject supports the diagnosis of Diabetes Mellitus. ADA recommended reference range Performed By: #### F SH, CMP, LIPID, TSH3, CBC, A1C WTH eA #### [facility] [address] [place] [address] [place] #### ESTRADIOL #### [facility] , Hematocrit [Volume Fraction] of Blood by Automated countOrdered By: Micheal Ocasio on 06-18-2023 Hematocrit (Bld) [Volume fraction] 41.3 % Normal 34.0-46.4 [facility] Comment on above: Order Comment: Reaso n for Exam Hyperlipidemia Performed By: #### F SH, CMP, LIPID, TSH3, CBC, A1C WTH eA #### [facility] [address] [place] [address] [place] #### ESTRADIOL #### [facility] , Hemoglobin [Mass/volume] in BloodOrdered By: Micheal Ocasio on 06-18-2023 Hemoglobin (Bld) [Mass/Vol] 13.7 g/dL Normal 11.8-15.4 [facility] Comment on above: Order Comment: Reaso n for Exam Hyperlipidemia Performed By: #### F SH, CMP, LIPID, TSH3, CBC, A1C WTH eA #### [facility] [address] [place] [address] [place] #### ESTRADIOL #### [facility] , Leukocytes [#/volume] correc brenda for nucleated erythrocytes in Blood by Automated counOrdered By: Micheal Ocasio on 06-18-2023 WBC corrected for nucl RBC Auto (Bld) [#/Vol] 12.5 10*3/uL 3.8-11.6 [facility] Leukocytes [#/volume] in Blo od by Automated countOrdered By: Micheal Ocasio on 06-18-2023 WBC (Bld) [#/Vol] 12.5 10*3/uL High 3.8-11.6 [facility] Comment on above: Order Comment: Reaso n for Exam Hyperlipidemia Performed By: #### F SH, CMP, LIPID, TSH3, CBC, A1C WTH eA #### [place] [address] [place] #### ESTRADIOL #### [facility] , Lipid Panelon 06-18-2023 LDL Cholesterol,Calculated 84 mg/dL Normal 0-100 [facility] Comment on above: Order Comment: Reaso n for Exam Hyperlipidemia Reason for Exam Mood swings Result Comment: LDL ATP III CLASSIFICATION LDL less than 100 mg/dL Optimal LDL 100-129 mg/dL Near or above optimal LDL 130-159 mg/dL Borderline high LDL 160-189 mg/dL High LDL greater than 189 mg/dL Very high Performed By: #### F SH, CMP, LIPID, TSH3, CBC, A1C WTH eA #### [facility] [address] [place] [address] [place] #### ESTRADIOL #### [facility] , Triglyceride w/Reflex 144 mg/dL Normal 0-149 [facility] Comment on above: Order Comment: Reaso n for Exam Hyperlipidemia Reason for Exam Mood swings Result Comment: TRIG ATP III CLASSIFICATION TRIG less than 150 mg/dL Normal TRIG 150-199 mg/dL Borderline high TRIG 200-500 mg/dL High TRIG greater than 500 mg/dL Very high Standard traceable to the Center for Disease Conrtrol and Prevention (CDC) test method. Performed By: #### F SH, CMP, LIPID, TSH3, CBC, A1C WTH eA #### [place] [address] [place] #### ESTRADIOL #### [facility] , VLDL CHOLESTEROL 28 mg/dL Normal [facility] Comment on above: Order Comment: Reaso n for Exam Hyperlipidemia Reason for Exam Mood swings Performed By: #### F SH, CMP, LIPID, TSH3, CBC, A1C WTH eA #### [place] [address] [place] #### ESTRADIOL #### [facility] , Lymphocytes [#/volume] in Bl ood by Automated countOrdered By: Micheal Ocasio on 06-18-2023 Lymphocytes (Bld) [#/Vol] 3.6 10*3/uL Normal 1.00-4.8 [facility] Comment on above: Order Comment: Reaso n for Exam Hyperlipidemia Performed By: #### F SH, CMP, LIPID, TSH3, CBC, A1C WTH eA #### [place] [address] [place] #### ESTRADIOL #### [facility] , Lymphocytes/100 leukocytes i n Blood by Automated countOrdered By: Micheal Ocasio on 06-18-2023 Lymphocytes/100 WBC (Bld) 28.8 % Normal . [facility] Comment on above: Order Comment: Reaso n for Exam Hyperlipidemia Performed By: #### F SH, CMP, LIPID, TSH3, CBC, A1C WTH eA #### [place] [address] [place] #### ESTRADIOL #### [facility] , MCH [Entitic mass] by Automa brenda countOrdered By: Micheal Ocasio on 06-18-2023 MCH (RBC) [Entitic mass] 28.0 pg Normal 24.7-34.3 [facility] Comment on above: Order Comment: Reaso n for Exam Hyperlipidemia Performed By: #### F SH, CMP, LIPID, TSH3, CBC, A1C [facility] eA #### [facility] [address] [place] [address] [place] #### ESTRADIOL #### [facility] , MCHC Auto (RBC) [Mass/Vol]Or dered By: Micheal Ocasio on 06-18-2023 MCHC (RBC) [Mass/Vol] 33.1 g/dL 32.0-35.0 [facility] MCV [Entitic volume] by Auto mated countOrdered By: Micheal Ocasio on 06-18-2023 MCV (RBC) [Entitic vol] 84.7 fL Normal 80-100 [facility] Comment on above: Order Comment: Reaso n for Exam Hyperlipidemia Performed By: #### F SH, CMP, LIPID, TSH3, CBC, A1C [facility] eA #### [facility] [address] [place] [address] [place] #### ESTRADIOL #### [facility] , Neutrophils [#/volume] in Bl ood by Automated countOrdered By: Micheal Ocasio on 06-18-2023 Neutrophils (Bld) [#/Vol] 7.6 10*3/uL Normal 1.8-7.7 [facility] Comment on above: Order Comment: Reaso n for Exam Hyperlipidemia Performed By: #### F SH, CMP, LIPID, TSH3, CBC, A1C [facility] eA #### [facility] [address] [place] [address] [place] #### ESTRADIOL #### [facility] , No Panel InformationOrdered By: Micheal Ocasio on 06-18-2023 Estimated GFR (CKD-EPI) > 60.0 mL/Min [facility] Creatinine Clearance (Chem N/A [facility] Nucleated erythrocytes [Pres ence] in Blood by Automated countOrdered By: Micheal Ocasio on 06-18-2023 Nucleated RBC Auto Ql (Bld) 0.1 /100{WBC} 0-0.5 [facility] Platelet mean volume [Entiti c volume] in Blood by Automated countOrdered By: Micheal Ocasio on 06-18-2023 Platelet mean volume (Bld) [Entitic vol] 8.5 fL Normal 6.3-10.7 [facility] Comment on above: Order Comment: Reaso n for Exam Hyperlipidemia Performed By: #### F SH, CMP, LIPID, TSH3, CBC, A1C [facility] eA #### [address] #### ESTRADIOL #### [facility] , Potassium [Moles/volume] in Serum or PlasmaOrdered By: Micheal Ocasio on 06-18-2023 Potassium [Moles/Vol] 3.8 mmol/L Normal 3.5-5.1 [facility] Comment on above: Order Comment: Reaso n for Exam Hyperlipidemia Reason for Exam Mood swings Performed By: #### F SH, CMP, LIPID, TSH3, CBC, A1C WT eA #### [place] [address] [place] #### ESTRADIOL #### [facility] , Protein [Mass/volume] in Ser um or PlasmaOrdered By: Micheal Ocasio on 06-18-2023 Protein [Mass/Vol] 7.1 g/dL Normal 6.4-8.9 [facility] Comment on above: Order Comment: Reaso n for Exam Hyperlipidemia Reason for Exam Mood swings Performed By: #### F SH, CMP, LIPID, TSH3, CBC, A1C WT eA #### [place] [address] [place] #### ESTRADIOL #### [facility] , Serum globulin measurement b y calculation (mass/volume)Ordered By: Micheal Ocasio on 06-18-2023 Globulin (S) [Mass/Vol] 2.6 g/dL Normal [facility] Comment on above: Order Comment: Reaso n for Exam Hyperlipidemia Reason for Exam Mood swings Performed By: #### F SH, CMP, LIPID, TSH3, CBC, A1C WTH eA #### [facility] [address] [place] [address] #### ESTRADIOL #### [facility] , Serum or plasma albumin/glob ulin mass ratioOrdered By: Micheal Ocasio on 06-18-2023 Albumin/Globulin [Mass ratio] 1.7 {ratio} Normal [facility] Comment on above: Order Comment: Reaso n for Exam Hyperlipidemia Reason for Exam Mood swings Performed By: #### F SH, CMP, LIPID, TSH3, CBC, A1C WTH eA #### [address] #### ESTRADIOL #### [facility] , Serum or plasma anion gap de terminationOrdered By: Micheal Ocasio on 06-18-2023 Anion gap [Moles/Vol] 9.2 mmol/L Normal 6.0-15.0 [facility] Comment on above: Order Comment: Reaso n for Exam Hyperlipidemia Reason for Exam Mood swings Performed By: #### F SH, CMP, LIPID, TSH3, CBC, A1C WTH eA #### [address] #### ESTRADIOL #### [facility] , Serum or plasma high density lipoprotein (HDL) cholesterol measurementOrdered By: Micheal Ocasio on 06-18-2023 Cholesterol in HDL [Mass/Vol] 43 mg/dL Normal 23-92 [facility] Comment on above: HDL CHOL ATP-III CLA SSIFICATION Cardiovascular RiskHDL > or equal to 60 mg/dL LOWHDL < 40 mg/dL HIGH Order Comment: Reaso n for Exam Hyperlipidemia Reason for Exam Mood swings Result Comment: HDL CHOL ATP-III CLASSIFICATION Cardiovascular Risk HDL > or equal to 60 mg/dL LOW HDL < 40 mg/dL HIGH Performed By: #### F SH, CMP, LIPID, TSH3, CBC, A1C WTH eA #### [facility] [address] [place] [address] [place] #### ESTRADIOL #### [facility] , Serum or plasma total choles terol/high density lipoprotein (HDL) cholesterol mass ratOrdered By: Micheal Ocasio on 06-18-2023 Cholesterol.total/Spring sterol in HDL [Mass ratio] 3.6 {ratio} Normal <5.0 [facility] Comment on above: Order Comment: Reaso n for Exam Hyperlipidemia Reason for Exam Mood swings Performed By: #### F SH, CMP, LIPID, TSH3, CBC, A1C WTH eA #### [facility] [address] [place] [address] [place] #### ESTRADIOL #### [facility] , Sodium [Moles/volume] in Ser um or PlasmaOrdered By: Micheal Ocasio on 06-18-2023 Sodium [Moles/Vol] 139 mmol/L Normal 136-145 [facility] Comment on above: Order Comment: Reaso n for Exam Hyperlipidemia Reason for Exam Mood swings Performed By: #### F SH, CMP, LIPID, TSH3, CBC, A1C WTH eA #### [facility] [address] [place] [address] [place] #### ESTRADIOL #### [facility] , Thyrotropin [Units/volume] i n Serum or PlasmaOrdered By: Micheal Ocasio on 06-18-2023 TSH Qn 3.76 m[IU]/L Normal 0.45-5.33 [facility] Comment on above: Order Comment: Reaso n for Exam Hyperlipidemia Reason for Exam Mood swings Performed By: #### F SH, CMP, LIPID, TSH3, CBC, A1C WTH eA #### [facility] [address] [place] [address] [place] #### ESTRADIOL #### [facility] , Triglyceride [Mass/volume] i n Serum or PlasmaOrdered By: Micheal Ocasio on 06-18-2023 Triglyceride [Mass/Vol] 144 mg/dL 0-149 [facility] Comment on above: TRIG ATP III CLASSIF ICATIONTRIG less than 150 mg/dL NormalTRIG 150-199 mg/dL Borderline highTRIG 200-500 mg/dL High TRIG greater than 500 mg/dL Very highStandard traceable to the Center for Disease Conrtrol and Prevention (CDC) test method. Urea nitrogen [Mass/volume] in Serum or PlasmaOrdered By: Micheal Ocasio on 06-18-2023 Urea nitrogen [Mass/Vol] 12 mg/dL Normal 7-25 [facility] Comment on above: Order Comment: Reaso n for Exam Hyperlipidemia Reason for Exam Mood swings Performed By: #### F SH, CMP, LIPID, TSH3, CBC, A1C WT eA #### [facility] [address] [place] [address] [place] #### ESTRADIOL #### [facility] , Microalbumin Analyzeron 06-06 Albumin DL <= 20 mg/L (U) [Mass/Vol] mg/dL [facility] Albumin Test strip detection limit <= 20 mg/L (U) [Mass/Vol] 30 [facility] Creatinine (U) [Mass/Vol] 300 mg/dL [facility] Urine 10 SGon 06-16-2023 Albumin DL <= 20 mg/L (U) [Mass/Vol] 30 mg/dL [facility] Albumin DL <= 20 mg/L (U) [Mass/Vol] Negative [facility] pH (U) 6.0 [pH] [facility] Urine 10 SG Negative [facility] Urine 10 SG 1.030 [facility] Urine 10 SG 0.2 [facility] Coding Summary.on 02-06-2023 Coding Summary. [id number] W w+PGhlYWQ+AC6PZWLzN64 gjLOjsU1cP1YLXMcQEvga JTEHLIdSTzQuocXwXG3pr XNjZXJu IC8+FZ6rJLFcTpqcdMGxx 8H6yXR4V94oec8rXGuchG G5BHAaGkWmaaedp1sdlMy 6IDcuNmluOyBt YBBqfH82MRW9rM54Yj95d JIuuIEer2mygDr9ZhSoSC JiOQQ6kQukQZjig3NzHEH rX92ydLVbr1K2 VVIsdLembLZeTmTpaHZ7q X7oEYqrtwznt6fquvniQt a2dp51uFZvp3W8cVM4I4A miwO1KKSxyIDg IyjnjZZDuN5zlhjdp3tqk bglCyWfWIRaZNh1NNc1SZ FswLziBiArIY63FTT4ELW lvdXdL0DiLCHe hYtoRbR8v0S8Kn9FC7OOR zdlI4DNTYHWJIoheCF+PC 41ss17S6AlJlfeOiv8HXJ hCLO4rMS0kS4u SEUuAPdwb3Q6aGX3T9Pas nErjz7mr1xmHPYuLZkdZ9 6gcLZdf3E9DYAmdGI3CJJ qoXzhAiJryA31 Oyc+EDHuhGakc7TwHexnc 0gwu6gadZc5EbotIDDanr ZkmNbkJHY7o7ZiVl4uAFF aoJL0aRT4aE4j WcOpRzU0VYfhF854JnFji AUeVuatZ58lD7XigPN+PH SwCju2XPPnhUuuYD5lU7C hZGRpbmctbGVm zHhiBX2jILHwqsgkEIDic P4oIOJzM8f9KiOjVzA7SN kxL8KoOMOlxbyyMp78tD1 hMuOdHdV7CHeq V8LjxyK9XUEpbBMfSShdQ OK7N38jx3Q6YOBsCULzMO Y1qPJ3wW3fuHpfworhoCA mdDsgdmVydGlj AUveMZebT980JUJpdLruU kNvZGluZyBEYXRlOiAgMD UvMDQvMjAyMzwvdGQ+PHR iGYG2zCsuWKXg ePAeMDgiAz2ymPzusRyeO V3iNTJqypueJYDuaR3cWX OtxWOfeOfpHX9hVNOpjfk uu626VyMuEOF1 KHIgnLWcO8HqiJ5zAkDeI OLhPNYgD2UsuPBeVCpmW9 15HBjbJoR6FTFxprGoF6C sLWFsaWduOiB0 z9T5Wh8Oz8ZkniocC9Gqt NFxCsRqFnmtLSx6L6IqYg wvdHI+LZ22YXKnDZ33HDj 5BCN2bXniZMvh AHQfC6NwtE1zYaFeUVDzP GRkOyc+PHRhYmxlIHdpZH RoPScxMDAlJyBzdHlsZT0 mDi9yXYGgEIZd sAjvvKLjEhNow0kwLZZjP FgzTG9vdNsyQ5IdhBE6FN Bcf3s5Ks94K79oP5IzlWT +QYYjjER6uSJ5 kL7qIqFiPeG3TPpuG462L sLvuLLpPgzzz6ldv5xwwJ m9JgU3AILnfhPxkKqbVEP 2f8DjCp71F37s IHdpZHRoPSIxNSUiIHZhb Eyzov3jhX6dTp7+PGNvbC H9nQW3pB1nZrHeVdB0DUw iX234QdQtkEZc Fckny3vrk2ppnMz2JpNmW OFlkjAreWueLWJ8n4GqHi 61Z5VmsXokf5PhMeg4bk8 6oATth5W3zZH2 K9LpRCLwsrseyEEeyQovS Y5jNSMpgchyOUKkwJ1oDC VgI3d3EvWuOtQ2QEqaS6P lldF6ESIppFEn ZFXplEFPbJ3llhqju2svq vwkSkPhFDPuRVr2OIb4YJ DetHklKoSpDUL1GnV6WET 9yXJfbA6wkPns stobtJ8kBku+HRN3kCVch CDBEG3aZpytcPW+PHRkIH N7dOclTKlvVOWmrE1aSVV sU2l3KvXyAgO4 BSprQ2YmwnO6KCJhbUNyU KYhuLJOgK3boolye5zwsb wmGuLzHMBbPTd1PJz7AYS saWduOiBsZWZ0 LaE8SRO3dYGwqS0vsHdum sefqB6aWvx+QmlydGggRG L6TPu8G2NpWdm7PMYeoQr hFX4tlCFsYFsi Oc8lfCtbvTtqAV7gPOIlt ajni733YpXgv9zsWOGdrN EzBAqoZUJ0W68ih3J1HHO pJXBjDPY6mSX8 zE1kiUaehtbrlQNtyIwpf dLwnAqdFKpkZFrlJ550UG MifIafLkPkBCi9V5EgQud 8FLEpaZegUB6d sHOoSLynJs5kwEhbxCboP R2vGGRnvvmnw438DyMqw8 vcZZDvuRCoXRydUEB5F37 ze4D4IETkSRKq GTC1aEE0qE0qeSglsfxdk GVmdDsgdmVydGljYWwtYW kaU536GJWpvSheGzJvoMs 5S9CnKut7PKNx sRnvFI6jwXJxWIyrZn5kq ReazGfwPJ6jCJCrkrszm3 91ZgGmx5fiVDEtfTByKPi bKBJ9U56ju5U4 ESWpCZLfYCN1iLD0iM5ro GlnbjogbGVmdDsgdmVydG egRGolYKrsH596UBIclHr nPlBhdGllbnQg ZEviOMq8W3CwTynvtWE+P V55IHNoXS64eXFuvMSas9 vtoEk6HfUaGPHaZWT1dDo eJArks5XhGEIz N34kmXZkl8E2QNMskYvrj OSuPpUjuZR3qB7mKQamen yfc9abrebdKpjjj6pqkd2 3uO77H91zYSxe ZHRoPSIzMCUiIHZhbGlnb w9hjZ1wKx1+WPCnuAJ9lZ A0wO1dNIJwKgM4KOarZ78 9InRvcCIvPjxj r4wki2bndOr5YdM6TGHfs lQljEiyPPV2l9FeDn27Q3 9sIHdpZHRoPSIyMCUiIHZ avYgyge2pdE6a Ii8+XDHsgSY9gTQ7sH9kB eXrOuU5DBvwH857GcNihL NqUvkeY81fX4CdoJP+PHR sItx2UGIecPjy OO1lkSRxJEmaCa1rVDF8S lBhDtQmHKqkB0PpTZCjqp htmcyxpUQ2CBUfWDEbeU3 4Ju6dgPxhJIRw hBABiS4tqgeir8igvnocJ eKwGUWgANc7RAv2HRKmqF faBuBiZQV7WdN4IVK6cMB cmD1efTxodbeh oD9vU1EoPRSwzzmnHq70h E1pXxFrMmI2OPuaIeu+Ql DFO42iBUNYPsT6K3ArAqx 2OSFjwMhgQZ2e tNOiGOekLr6qmHqnyPogC D0dTOYoygvoDZJvbG6cQT BhvONmnGyzZA4lIKUhztt we886OoWsGUG0 GQZbhGYeX9MptV6hYjHbX HPrXHLiY1KsmWSsZQtxS1 73DLyaRjQ8NKTyimVcF0Q sLWFsaWduOiB0 c1I5Zg2eEu5cZM2wBEk9U X73VT73hGPoj0P4lGU5M6 XdNUCjdcnrrbffkCA0PCH mEDAfcS82nVLr SIioRg8yr6P4u300LZYbL ZXhcD84Ik1xiVjmTJEsoK SKzB2ciwmtk7bqmvguArU mRFIpOJy0QNq8 TEJkbCfaNiEdTTQ3FkI2O TM2bRMsmY9pnVqjffoifM 9wOyc+WAUrCXXihpD4F4A fGyf1RZJzoVeh FY1zqRHbTEdtKk7tiZeon VkkUU7tQNFpdpxjJZIicU 8iZIXpoYKsmGblMI4eDQX cfqtfm448RuJp XLK4CRCieKBaB7ShqG2zB eOxFQBwNKNnF9YvaDFjSX ssC582SDjyQtO2VZOcydK aG2IpREYuqYqa OrB5d6F8Oz5PRT8hfGY8K 0NeZke7UTCvgZxgFG2wcD WfAZeqGt6cxTfswZqnZW2 wNTBpbjtwYWRk xK4rKAWuzEOcpJidZP0qV PUhvgypk022FgIpDLB1KB UzaQZhD2ZzjJ7dEwOwMDZ hJHUmT4LgjKWz DOsvU544QXnhCgF4GHJfq aPaB6RiNWOtiXnvPsM4z4 N2Bw7NwHDkI5VhQ1f5P3Q kPjwvdHI+PC90 HVOfYY97yIArdKIdk4rhp Gy5GpPdMMEsEWE2eGyvRF ttu8IvZCYvS43wzHXaa7O 6IGNvbGxhcHNl QqFuzIF3aT6nMHpwjykex 6vjpmjnUvilk7agzv84lQ 84Y72qYSkfRPKoXZOzOYA kPHIflXuqgo1q dP5mSz8+XGQgxXW8vTC6n T4vTcOcKwP0MAdqB643Xa EoyTPlXwvcw0mpp3msxBa 9IjIwJSIgdmFs jUewFQQ7j6GnYi41T84pN HdpZHRoPSIyMCUiIHZhbG tcxa3ifM7cMc6+AQ0tr6e rfz00vF20hSR+ WRFqMRU6wDniQJxoXDCzq G4zPAwiTwC2SQOeFkLgfV 53zVOkQMneZb0qnEyglHf jZE8pQMRhfrrk r223JpPub1flVTDlkKXsV HxbXEI2Z91dd7A3UXRmWC UyDLM0wWX6hA9pgPsttlg gbGVmdDsgdmVy xJjtTFztBCheH412BWJtx YqmQtVuyNVeN1wjbfMJSN 1lOjwvdGQ+CTUdDBO8aAu hSWwmRDBzrP5t THAaB2f7XrRpBsC6WCczP 7ChxmS2HIOhiXVpNQStdQ LDsH6qyfdpj6tqekuiIfY rFHTkKJc2ESr2 QOSovXtcOxAoXPV3IwW2P LV0hLJedK9kkCtafvkssV 9wOyc+RklOOjwvdGQ+PHR uREW9dHwgWDpw DNBczX2zZWQpA6t0IzOtM gX2DGshG8CbomX8JYUlqZ VqDZRwmZMDqO7lbiscw6b vcjogIzAwMDAw ZQf2XRi9IWZjdPauBqWoM WS4ImQ7QHZ2iKBlgB3waR rzxtyolQ2iZjs+TVJOOjw vdGQ+PHRkIHN0 aXwbRIqbHGXudY3oEBWkP 8l4JeJiDaA9IJswO1Nevh M1BINvxIAvJWEcjFDVlW0 rzuvfg6topvpx ImTgQJBmQTz4EAf2EVWbm LruRzLbBON5HfL5XIU0yY LtsA6utDlqihkloG5mCrl +PHG1MAQ6FA07 ZZ95R4RdZhhebIJyfBP+P HRhYmxlIHdpZHRoPScxMD AdLnOzsEkkPW0jDh1qHOQ yLWNvbGxhcHNl MbDgr2gk (more content not included)... Normal [facility] Auto Diffon 02-04-2023 Basophils/100 WBC (Bld) 0.9 % Normal 0.0-2.0 F [facility] Comment on above: Order Comment: Order Added by Discern Expert. Performed By: #### 2 [id number] ####[id number] [place] [address] Basophils/Leukocytes Auto (Bld) [Pure # fraction] 0.1 E9/L Normal 0.0-0.2 [facility] Comment on above: Order Comment: Order Added by Discern Expert. Performed By: #### 2 [id number] ####[address] [place] [address] Eosinophils/100 WBC (Bld) 1.4 % Normal 0.0-8.0 [facility] Comment on above: Order Comment: Order Added by Discern Expert. Performed By: #### 2 [id number] ####[address] [place] [address] Eosinophils/Leukocytes Auto (Bld) [Pure # fraction] 0.2 E9/L Normal 0.0-0.5 [facility] Comment on above: Order Comment: Order Added by Discern Expert. Performed By: #### 2 [id number] ####[address] [place] [address] Lymphocytes/100 WBC (Bld) 27.2 % Normal 14.0-50.0 [facility] Comment on above: Order Comment: Order Added by Discern Expert. Performed By: #### 2 [id number], 6601376, 8845210, 4337825, 15934644, 4849679 ####[address] [place] [address] Lymphocytes/Leukocytes Auto (Bld) [Pure # fraction] 3.3 E9/L Normal 1.0-4.0 [facility] Comment on above: Order Comment: Order Added by Discern Expert. Performed By: #### 2 108139, 3748423, 3209296, 8093889, 09752349, 9092640 ####[address] [place] [address] Monocytes/100 WBC (Bld) 5.4 % Normal 4.0-14.0 [facility] Comment on above: Order Comment: Order Added by Jacek Expert. Performed By: #### 2 282773, 1929842, 8552815, 5249940, 27408721, 4613027 ####[address] [address] Monocytes/Leukocytes Auto (Bld) [Pure # fraction] 0.6 E9/L Normal 0.2-1.0 [facility] Comment on above: Order Comment: Order Added by Jacek Expert. Performed By: #### 2 818020, 4066098, 0709642, 4680601, 49329644, 1517604 ####[address] [address] Neutrophils/100 WBC (Bld) 65.1 % Normal 36.0-75.0 [facility] Comment on above: Order Comment: Order Added by Jacek Expert. Performed By: #### 2 528773, 0459058, 3455837, 3137395, 26289962, 0682339 ####[facility] [address] [place] [address] Neutrophils/Leukocytes Auto (Bld) [Pure # fraction] 7.8 E9/L High 2.0-7.5 [facility] Comment on above: Order Comment: Order Added by Jacek Expert. Performed By: #### 2 753030, 0317876, 9053336, 7740696, 78541268, 2059180 ####[facility] [address] [place] [address] BMPon 02-04-2023 Creatinine [Mass/Vol] 0.9 mg/dL Normal 0.5-1.3 [facility] Comment on above: Performed By: #### 2 250812, 8694198, 8029647, 1834714, 56754465, 3598669 ####[facility] [address] [place] [address] Urea nitrogen [Mass/Vol] 9 mg/dL Normal 5-21 [facility] Comment on above: Performed By: #### 2 846943, 2392292, 9164782, 7077152, 46929615, 7169401 ####[facility] [address] [place] [address] Urea nitrogen/Creatinine [Mass ratio] 10 No Units Normal 10-20 [facility] Comment on above: Performed By: #### 2 509999, 2429797, 1864635, 9082943, 95533844, 6699657 ####[facility] [address] [place] [address] Anion gap [Moles/Vol] 11 mmol/L Normal 6-16 [facility] Comment on above: Performed By: #### 2 449017, 3785128, 9449245, 2259430, 06407806, 2823837 ####[facility] [address] [place] [address] Calcium [Mass/Vol] 9.2 mg/dL Normal 8.9-11.1 [facility] Comment on above: Performed By: #### 2 349841, 1112966, 9885748, 2876905, 37825064, 1942393 ####[facility] [address] [place] [address] Chloride [Moles/Vol] 102 mmol/L Normal 101-[address] [facility] Comment on above: Performed By: #### 2 752637, 2045038, 1530264, 2019095, 88346925, 1115759 ####[facility] [address] [place] [address] CO2 [Moles/Vol] 26 mmol/L Normal 21-31 [facility] Comment on above: Performed By: #### 2 249374, 3661018, 1927753, 2054850, 88748924, 3228035 ####[facility] [address] [place] [address] Glucose [Mass/Vol] 101 mg/dL Normal 55-199 [facility] Comment on above: Result Comment: If t his glucose result represents a fasting glucose, interpretation should refer to the following reference range: 55-99 mg/dL Performed By: #### 2 072768, 7716336, 7692923, 3447977, 29821465, 7218702 ####[facility] [address] [place] [address] Potassium [Moles/Vol] 3.7 mmol/L Normal 3.5-5.3 [facility] Comment on above: Performed By: #### 2 493727, 6938507, 2770649, 9326823, 59408885, 8739854 ####[facility] [address] [place] [address] Sodium [Moles/Vol] 135 mmol/L Normal 135-145 [facility] Comment on above: Performed By: #### 2 892713, 5293678, 7810857, 9138069, 02472338, 4309961 ####[facility] [address] [place] [address] CBC w/ Auto Diffon 3 Erythrocyte distribution width (RBC) [Ratio] 12.8 % Normal 10.9-14.2 [facility] Comment on above: Performed By: #### 2 377098, 3913456, 3282150, 1527105, 86445186, 0281302 ####[facility] [address] [place] [address] Hematocrit (Bld) [Volume fraction] 39.7 % Normal 34.0-46.0 [facility] Comment on above: Performed By: #### 2 082397, 2949708, 1449981, 5421465, 35740246, 7708021 ####[address] [place] [address] Hemoglobin (Bld) [Mass/Vol] 13.4 g/dL Normal 12.0-16.0 [facility] Comment on above: Performed By: #### 2 569410, 3132169, 7442050, 2307906, 04537482, 5481909 ####[address] MCH (RBC) [Entitic mass] 27.7 pg Normal 27.0-34.0 [facility] Comment on above: Performed By: #### 2 945561, 5999937, 9863226, 7754520, 13505363, 5402423 ####[address] [address] MCHC (RBC) [Mass/Vol] 33.7 g/dL Normal 31.4-36.0 [facility] Comment on above: Performed By: #### 2 396308, 8826371, 5995708, 3758562, 52030254, 6462858 ####[address] [address] MCV (RBC) [Entitic vol] 82.4 fL Normal 80.0-100.0 [facility] Comment on above: Performed By: #### 2 904656, 4750766, 4582424, 5481560, 59929494, 3077666 ####[address] [address] Platelet mean volume (Bld) [Entitic vol] 8.4 fL Normal 6.4-10.8 [facility] Comment on above: Performed By: #### 2 297899, 8962594, 6225351, 3971469, 82616620, 3474340 ####[facility] [address] [place] [address] Platelets (Bld) [#/Vol] 313.0 E9/L Normal 150.0-500.0 [facility] Comment on above: Performed By: #### 2 284228, 2576779, 5703657, 1581927, 47530013, 7926175 ####[facility] [address] [place] [address] RBC (Bld) [#/Vol] 4.8 E12/L Normal 4.3-5.9 [facility] Comment on above: Performed By: #### 2 037403, 9391020, 0512734, 1801432, 51761370, 0004425 ####[facility] [address] [place] [address] WBC corrected for nucl RBC Auto (Bld) [#/Vol] 12.0 E9/L High 4.0-11.0 [facility] Comment on above: Performed By: #### 2 136666, 2601318, 3926721, 3230972, 07744855, 3232835 ####[facility] [address] [place] [address] CHEMISTRYOrdered By: SYSTEM SYSTEM on 02-04-2023 Albumin [Mass/Vol] 4.1 g/dL Normal 3.3 - 5.0 gm/dL [facility] Albumin/Globulin [Mass ratio] 1.2 {ratio} Normal 1.1 - 2.2 [facility] ALP [Catalytic activity/Vol] 47 [iU]/d Normal 21 - 98 Int._Unit/L [facility] ALT No additional P-5'-P [Catalytic activity/Vol] 24 [iU]/d Normal 6 - 46 Int._Unit/L [facility] Anion gap [Moles/Vol] 11 mmol/L Normal 6 - 16 mEq/L [facility] AST [Catalytic activity/Vol] 20 [iU]/d Normal 5 - 43 Int._Unit/L [facility] Bilirubin [Mass/Vol] 0.9 mg/dL Normal 0.0 - 1 .1 mg/dL [facility] Bilirubin.direct [Mass/Vol] 0.2 mg/dL Normal 0.1 - 0.4 mg/dL [facility] Bilirubin.indirect [Mass or moles/Vol] 0.7 mg/dL Normal 0.1 - 0.9 mg/dL [facility] Calcium [Mass/Vol] 9.2 mg/dL Normal 8.9 - 11. 1 mg/dL [facility] Chloride [Moles/Vol] 102 mmol/L Normal 101 - 1 11 mmol/L [facility] CO2 [Moles/Vol] 26 mmol/L Normal 21 - 31 mmol/L [facility] Creatinine [Mass/Vol] 0.9 mg/dL Normal 0.5 - 1.3 mg/dL [facility] GFR/1.73 sq M.predicted among non-blacks MDRD (S/P/Bld) [Vol rate/Area] 80 mL/min/1.73 m2 Normal >=59mL/min/ 1.73 m2 FT Chem S Globulin (S) [Mass/Vol] 3.5 g/dL Normal 1.4 - 4.0 gm/dL [facility] Glucose [Mass/Vol] 101 mg/dL Normal 55 - 199 mg/dL [facility] Lipase [Catalytic activity/Vol] 48 U/L Normal 13 - 58 unit/L [facility] Potassium [Moles/Vol] 3.7 mmol/L Normal 3.5 - 5.3 mmol/L [facility] Protein [Mass/Vol] 7.6 g/dL Normal 6.0 - 7.8 gm/dL [facility] Sodium [Moles/Vol] 135 mmol/L Normal 135 - 145 mmol/L [facility] Urea nitrogen [Mass/Vol] 9 mg/dL Normal 5 - 21 mg/dL [facility] Urea nitrogen/Creatinine [Mass ratio] 10 mg/mg Normal 10 - [address] [facility] [address] Abdomen/Pelvis w/o Contra ston 02-04-2023 CT Abdomen/Pelvis w/o Contrast Exam Date/Time: 02/04/2023 19:49 EDT Reason for Exam: Abdominal pain, acute, nonlocalized;Other (please specify) Report IMPRESSION: ACUTE COLITIS OF THE PROXIMAL DESCENDING COLON. HEPATIC STEATOSIS. EXAM: CT Abdomen/Pelvis w/o Contrast History: Abdominal pain. Constipation. Nausea. Technique: Multiple contiguous axial images were obtained of the abdomen and pelvis from the level of the lung bases through the ischial tuberosities without contrast. Multiplanar reformats were obtained. Comparison: None available Findings: Lung bases are clear. Lack of intravenous contrast precludes optimal evaluation of the abdominal and pelvic viscera. Diffuse hypoattenuation of the liver. Postsurgical changes of cholecystectomy. The spleen, stomach, pancreas, and adrenal glands appear within normal limits given limitations of a noncontrast study. The unenhanced kidneys appear within normal limits No urinary tract calculi or hydronephrosis. Urinary bladder is well distended. The uterus is absent. Abdominal aorta is nonaneurysmal. No retroperitoneal or abdominal/pelvic lymphadenopathy. No small bowel obstruction. Wall thickening of the proximal descending colon with associated pericolonic inflammation. Appendix is within normal limits. Trace free fluid within the pelvis is nonspecific and likely physiologic. No pneumatosis intestinalis, portal venous gas, or pneumoperitoneum. No abscess. Tiny fat-containing periumbilical hernia. No acute osseous abnormality. All CT scans at this facility use dose modulation, iterative reconstruction, and/or weight based dosing when appropriate to reduce radiation dose to as low as reasonably achievable. Report Ordering Provider: Gila Beasley FINAL REPORT Dictated: 02/04/2023 7:57 pm Elias Melvin DO Signed (Electronic Signature): 02/04/2023 7:57 pm Signed by: Elias Melvin DO Transcribed by: MERLINE Technologist: ORB Technical Comments Rectal Contrast Given? No Oral contrast amount in ml's: 0 Normal [facility] Consent for Treatmenton Consent for Treatment [id number] .00CD:127 Normal [facility] Discharge Instructionson Discharge Instructions [id number] 1.00CD:127 Normal [facility] ED Clinical Summaryon 2022 ED Clinical Summary [address] [address] ED Clinical Summary Person Information Name: BRANDON MARTIN/Joyce Age: 47 Years : 1975 Sex: Female Language: Divehi PCP: MICHEAL OCASIO DO Marital Status: Visit Id: Visit Reason: Nausea; Constipation; Abdominal pain; LT SIDE ABD PAIN Speciality: Acuity: 3 Enc Type: Emergency Med Service: Emergency Arrival: 02/04/2023 18:45:23 Discharge: 02/04/2023 20:37:58 LOS: 000 01:52 Checkin: 02/04/2023 18:45:23 Checkout: 02/04/2023 20:37:58 Dispo Type: Home (Routine DC) EVENTS: Event Name Event Status Request Date/Time Start Date/Time Complete Date/Time Arrive Complete 02/04/2023 18:45:23 02/04/2023 18:45:23 02/04/2023 18:45:23 Document Home Meds Request 02/04/2023 18:45:23 Triage Complete 02/04/2023 18:45:23 02/04/2023 18:59:06 02/04/2023 18:59:06 Bed Assign Complete 02/04/2023 18:53:05 02/04/2023 18:53:05 02/04/2023 18:53:05 Dr Exam Complete 02/04/2023 18:53:05 02/04/2023 18:59:25 02/04/2023 18:59:25 RN Exam Complete 02/04/2023 18:53:05 02/04/2023 19:30:58 02/04/2023 19:30:58 Registration Complete 02/04/2023 18:59:25 02/04/2023 20:02:21 02/04/2023 20:02:21 Meds Admin Request 02/04/2023 19:21:53 Pending Labs Complete 02/04/2023 19:21:53 02/04/2023 20:22:53 Lab Complete 02/04/2023 19:21:53 02/04/2023 20:22:53 Urine Collect Complete 02/04/2023 19:21:53 02/04/2023 20:22:53 CT Complete 02/04/2023 19:21:53 02/04/2023 19:36:48 02/04/2023 19:49:42 Pending Labs Complete 02/04/2023 19:27:58 02/04/2023 19:27:58 02/04/2023 19:50:12 Lab Complete 02/04/2023 19:27:58 02/04/2023 19:27:58 02/04/2023 19:50:12 Pending Labs Complete 02/04/2023 19:31:17 02/04/2023 19:31:17 02/04/2023 19:31:25 Lab Complete 02/04/2023 19:31:17 02/04/2023 19:31:17 02/04/2023 19:31:25 Pending Labs Cancel 02/04/2023 19:32:06 02/04/2023 19:39:32 Lab Cancel 02/04/2023 19:32:06 02/04/2023 19:39:32 Urine Collect Cancel 02/04/2023 19:32:06 02/04/2023 19:39:32 Pending Labs Complete 02/04/2023 19:33:33 02/04/2023 19:33:33 02/04/2023 19:33:34 Reg Complete Request 02/04/2023 20:02:21 Reg Bed Request Complete 02/04/2023 20:02:21 02/04/2023 20:02:21 02/04/2023 20:02:21 Meds Admin Complete 02/04/2023 20:15:29 02/04/2023 20:34:00 Discharge Complete 02/04/2023 20:18:42 02/04/2023 20:38:09 02/04/2023 20:38:09 Meds Admin Complete 02/04/2023 20:19:04 02/04/2023 20:34:00 Transfer Complete 02/04/2023 20:38:10 02/04/2023 20:38:10 02/04/2023 20:38:10 ADDRESS: [address] [place] [id number] [facility] DOC NOTES: MEDICAL INFORMATION: Prescriptions Given: New Medications Printed Prescriptions amoxicillin-clavulana te (Augmentin 875 mg-125 mg Tab) 1 Tablets By Mouth every 12 hours for 10 Days. Refills: 0. dicyclomine (Bentyl 10 mg Cap) 1 Capsules By Mouth 4 times a day for 7 Days. Refills: 0. ondansetron (Zofran ODT 4 mg Tab-Dis) 1 Tablets By Mouth every 8 hours. Refills: 0. PATIENT EDUCATION INFORMATION: Instructions: Colitis Follow up: With: Address: When: MICHEAL OCASIO [address] [place] [id number] Business (1) In 3 days 02/07/2023 Comments: Take the antibiotics twice a day as prescribed till you have completed the course you can use the Bentyl, Zofran every 6-8 hours as needed for nausea and abdominal pain. Please follow-up with your primary care doctor in the next 2 to 3 days. Please return to the ED for any new or worsening symptoms. DIAGNOSIS: Acute colitis Normal [facility] ED Note-Physicianon 02-05-20 ED Note-Physician Basic Information Time Seen: Gila Beasley DO 02/04/2023 18:59 Chief Complaint chronic constipation worsening over the last 2 weeks. states only 1 BM in the last week. c/o nausea, denies vomiting, fevers/chills. History of Present Illness Patient is a 47-year-old female with a history of IBS and chronic constipation presenting to the ED for evaluation of left-sided abdominal pain, nausea, constipation. Patient states she had ongoing issues with chronic constipation over the last 2 weeks has only been able to have small bowel movement. Patient's been having increasing pain in the left lower quadrant, left upper abdomen. Denies any fevers, chills, vomiting or diarrhea. Does take chronic medications for chronic constipation which are not helping at this time. Review of Systems A 10 point review of systems is negative except as noted above. Medical and Surgical History: Reviewed and noted Social history: Lives at home Tobacco: Denies Physical Exam Vitals & Measurements T: 36.6 ?C(Oral) HR: 78(Monitored) RR: 18 BP: 169/104 SpO2: 99% HT: 150 cm WT: 69 kg BMI: 30.67 General: Well developed, non toxic appearing, no acute distress HEENT: Head atraumatic, Mucosa moist, hearing grossly normal Neck: No JVD, tracheal deviation Cardiac: Regular rate, rhythm, no murmurs, or gallops, 2+ radial pulses Respiratory: Lungs clear to auscultation B/L, normal respiratory effort Abdomen: Soft tenderness palpation of the left lower quadrant, left upper quadrant no rebound or guarding, no peritoneal signs Extremities: No edema noted in the LE B/L, no tenderness to palpation Neurologic: Alert and oriented, speech clear Skin: No rashes or lesions Psych: Appropriate mood and behavior Medical Decision Making MEDICAL DECISION MAKING Number and Complexity of Problems Differential Diagnosis: [] [facility] Data External documents reviewed: [] My EKG interpretation: [] My CT interpretation: [] My X-ray interpretation: [] My Ultrasound interpretation: [] Decision rules/scores evaluated: [] Discussed with: [] Treatment and Disposition ED Course: Patient is a 47-year-old female presenting to the ED for evaluation of abdominal pain, nausea. Patient nontoxic-appearing on arrival, no acute distress. Patient with left lower quadrant tenderness on examination. Patient states this is different than her normal constipation therefore CT imaging is obtained. Patient's laboratory evaluation shows slight leukocytosis of 12 but is otherwise unremarkable. CT imaging shows acute colitis of the proximal descending colon. She was given Bentyl in addition to Zofran and IV fluids with significant treatment of her symptoms. She is given a dose of Augmentin due to duration of symptoms discharged home with Augmentin, Bentyl, Zofran. She is to follow-up with her primary care doctor in the next 2 to 3 days. She is to return to the ED for any new or worsening symptoms. Shared decision making: [] Code status: [] Assessment/Plan Acute colitis (K52.9: Noninfective gastroenteritis and colitis, unspecified) Orders: acetaminophen-hydroco done, 1 EA, Tab, Oral, Once, Stop date 02/04/23 20:18:00 EDT, STAT, Start date 02/04/23 20:18:00 EDT amoxicillin-clavulana te, 1 tab(s), Oral, q12hr for 10 day(s), 20 tab(s), Refill(s) 0 amoxicillin-clavulana te, 1 tab(s), Tab, Oral, Once, Stop date 02/04/23 20:15:00 EDT, STAT, Start date 02/04/23 20:15:00 EDT dicyclomine, 20 mg = 1 tab(s), Tab, Oral, Once, Stop date 02/04/23 19:21:00 EDT, STAT, Start date 02/04/23 19:21:00 EDT, 02/04/23 19:21:00 EDT dicyclomine, 10 mg = 1 cap(s), Oral, QID, X 7 day(s), # 14 cap(s), Refills(s) 0 ondansetron, 4 mg = 2 mL, Injection, IV Push, Once, Stop date 02/04/23 19:21:00 EDT, STAT, Start date 02/04/23 19:21:00 EDT, 02/04/23 19:21:00 EDT ondansetron, 4 mg = 1 tab(s), Oral, q8hr, # 12 tab(s), Refills(s) 0 Sodium Chloride 0.9% intravenous solution 1,000 mL, 1,000 mL, IV, 20 mL/hr, STAT, Start date 02/04/23 19:21:00 EDT, 50 hour(s), Total volume (mL): 1,000, 69 kg, 1.7, m2 Automated Diff Basic Metabolic Panel CBC w/ Auto Diff CT Abdomen/Pelvis w/o Contrast eGFR Extra Blue Tube Hepatic Function Panel Lipase Level UA With Cult Reflex Medications Administered Given Sodium Chloride 0.9% IV Kristyn 1000 mL 1,000 mL, 1000 mL, IV dicyclomine 20 mg Tab, 20 mg, Oral ondansetron 4 mg/2 mL Inj, 4 mg, IV Push Disposition Plan Discharge Prescription List Prescriptions Augmentin 875 mg-125 mg Tab, 1 tab(s), Oral, q12hr Bentyl 10 mg Cap, 10 mg= 1 cap(s), Oral, QID Zofran ODT 4 mg Tab-Dis, 4 mg= 1 tab(s), Oral, q8hr Follow-up With When Contact Information MICHEAL OCASIO In 3 days 02/07/2023 EDT [address] [place] [address]- Business (1) Additional Instructions: Take the antibiotics twice a day as prescribed till you have completed the course you can use the Bentyl, Zofran every 6-8 hours as needed for nausea and abdominal p (more content not included)... Normal [facility] Comment on above: Result Comment: Elec tronically Signed By: Gila Beasley DO\.bernabe\Date and Time Signed: 02/04/23 20:20 EDT ED Patient Education Noteon 02-04-2023 ED Patient Education Note Gastroenterology Colitis Colitis is a condition in which the colon is inflamed. It can cause diarrhea, blood in the stool, and abdominal pain. Colitis can last a short time (be acute), or it may last a long time (become chronic). What are the causes? This condition may be caused by: ? Infections from viruses or bacteria. ? A reaction to medicine. ? Certain autoimmune diseases, such as Crohn's disease or ulcerative colitis. ? Radiation treatment. ? Decreased blood flow to the bowel (ischemia). What are the signs or symptoms? Symptoms of this condition include: ? Diarrhea, blood in the stool, or black, tarry stool. ? Pain in the joints or abdominal pain. ? Fever or fatigue. ? Vomiting. ? Weight loss. ? Bloating. ? Having fewer bowel movements than usual. ? A strong and sudden urge to have a bowel movement. ? Feeling like the bowel is not empty after a bowel movement. How is this diagnosed? This condition may be diagnosed based on a stool test and a blood test. You may also have other tests, such as: ? X-rays. ? CT scan. ? Colonoscopy. ? Endoscopy. ? Biopsy. How is this treated? Treatment for this condition depends on the cause. This condition may be treated with: ? Steps to rest the bowel, such as not eating or drinking for a period of time. ? Fluids that are given through an IV. ? Medicine for pain and diarrhea. ? Antibiotic medicines. ? Cortisone medicines. ? Surgery. Follow these instructions at home: Eating and drinking ? Follow instructions from your health care provider about eating or drinking restrictions. ? Drink enough fluid to keep your urine pale yellow. ? Work with a dietitian to determine whether certain foods cause your condition to flare up. ? Avoid foods or drinks that cause flare-ups. ? Eat a well-balanced diet. General instructions ? If you were prescribed an antibiotic medicine, take it as told by your health care provider. Do not stop taking the antibiotic even if you start to feel better. ? Take jflk-fdh-fkwzjbl and prescription medicines only as told by your health care provider. ? Keep all follow-up visits. This is important. Contact a health care provider if: ? Your symptoms do not go away. ? You develop new symptoms. Get help right away if: ? You have a fever that does not go away with treatment. ? You develop chills. ? You have extreme weakness, fainting, or dehydration. ? You vomit repeatedly. ? You develop severe pain in your abdomen. ? You pass bloody or tarry stool. Summary ? Colitis is a condition in which the colon is inflamed. Colitis can last a short time (be acute), or it may last a long time (become chronic). ? Treatment for this condition depends on the cause and may include resting the bowel, taking medicines, or having surgery. ? If you were prescribed an antibiotic medicine, take it as told by your health care provider. Do not stop taking the antibiotic even if you start to feel better. ? Get help right away if you develop severe pain in your abdomen. ? Keep all follow-up visits. This is important. This information is not intended to replace advice given to you by your health care provider. Make sure you discuss any questions you have with your health care provider. Document Revised: 05/29/2021 Document Reviewed: 05/29/2021 [employer] Patient Education ? 2022 [employer] Normal [facility] ED Patient Summaryon 023 ED Patient Summary [place] [id number] Patient Discharge Instructions Person Information Name: BRANDON MARTIN Age: 47 Years Arrival Date: 02/04/2023 18:45:23 Discharge Diagnosis: Acute colitis Primary Care Physician: MICHEAL OCASIO DO Provider Information Primary Provider: Gila Beasley DO Advanced Wall Insulation Sprayer:None The exam and treatment you received in the Emergency Department were for an urgent problem and are not intended as complete care. It is important that you follow up with a doctor, nurse practitioner, or physician?s anesthesiologists' assistant for ongoing care. If your symptoms become worse or you do not improve as expected and you are unable to reach your usual health care provider, you should return to the Emergency Department. We are available 24 hours a day. BRANDON MARTIN has been given the following list of patient education materials, prescriptions and follow-up instructions: Follow-up Instructions: With: Address: When: MICHEAL OCASIO [address] [place] [address] [id number] [employer] (1) In 3 days 02/07/2023 Comments: Take the antibiotics twice a day as prescribed till you have completed the course you can use the Bentyl, Zofran every 6-8 hours as needed for nausea and abdominal pain. Please follow-up with your primary care doctor in the next 2 to 3 days. Please return to the ED for any new or worsening symptoms. In the event that this physician does not participate in your insurance network, please consult with your insurance company to find a nearby participating provider. Patient Education Materials: Colitis A MESSAGE TO ALL PATIENTS REGARDING OPIOIDS PRESCRIPTION OPIOIDS: WHAT YOU NEED TO KNOW Prescription opioids can be used to help relieve qzrffytd-mk-yblgnn pain and are often prescribed following a surgery or injury, or for certain health conditions. These medications can be an important part of the treatment but also come with serious risks. It is important to work with your healthcare provider to make sure you are getting the safest, most effective care. WHAT ARE THE RISKS AND SIDE EFFECTS OF OPIOID USE? Prescription opioids carry serious risks of addiction and overdose, especially with prolonged use. An opioid overdose, often marked by slowed breathing, can cause sudden . The use of prescription opioids can have a number of side effects as well, even when taken as directed: ? Tolerance?meaning you might need to take more of the medication for the same pain relief ? Physical dependence?meaning you have symptoms of withdrawal when a medication is stopped ? Increased sensitivity to pain ? Constipation ? Nausea, vomiting, and dry mouth ? Sleepiness and dizziness ? Confusion ? Depression ? Low levels of testosterone that can result in lower sex drive, energy, and strength ? Itching and sweating RISKS ARE GREATER WITH: ? History of drug misuse, substance use disorder, or overdose ? Mental health conditions (such as depression or anxiety) ? Sleep apnea ? Older age (65 years and older) ? Avoid alcohol while taking prescription opioids. Also, unless specifically advised by your health care provider, medications to avoid include: ? Benzodiazepines (such as Xanax or Valium) ? Muscle relaxants (such as Soma or Flexeril) ? Hypnotics (such as Ambien or Lunesta) ? Other prescription opioids KNOW YOUR OPTIONS Talk to your health care provider about ways to manage your pain that don?t involve prescription opioids. Some of these options may actually work better and have fewer risks and side effects. Options may include: ? Pain relievers such as acetaminophen, ibuprofen, and naproxen ? Some medication that are also used for depression or seizures ? Physical therapy and exercise ? Cognitive behavioral therapy, a psychological, goal-directed approach, in which patients learn how to modify physical, behavioral, and emotional triggers of pain and stress. IF YOU ARE PRESCRIBED OPIOIDS FOR PAIN: ? Never take opioids in greater amounts or more often than prescribed. ? Follow up with your primary health care provider. o Work together to create a plan on how to manage your pain. o Talk about ways to help manage your pain that don?t involve prescription opioids. o Talk about any and all concerns and side effects. ? Help prevent misuse and abuse o Never sell or share prescription opioids. o Never use another person?s prescription opioids. ? Store prescription opioids in a secure place and out of reach of others (this may include visitors, children, friends, and family). ? Safely dispose of unused prescription opioids: Find your community drug take-back program or your pharmacy mail-back program, or flush them down the toilet, following guidance from the Food and Drug Administration (www.fda.gov/Drugs/Re sourcesForYou). ? Visit www.cdc. (more content not included)... Normal [facility] HEMATOLOGYOrdered By: SYSTEM SYSTEM on 02-04-2023 Basophils/100 WBC (Bld) 0.9 % Normal 0.0 - 2.0 % [facility] HemeAutoSS Basophils/Leukocytes Auto (Bld) [Pure # fraction] 0.1 E9/L Normal 0.0 - 0.2 E9/L [facility]eAutoSS Eosinophils/100 WBC (Bld) 1.4 % Normal 0.0 - 8.0 % [facility] HemeAutoSS Eosinophils/Leukocytes Auto (Bld) [Pure # fraction] 0.2 E9/L Normal 0.0 - 0.5 E9/L [facility]Auto[facility] Lymphocytes/100 WBC (Bld) 27.2 % Normal 14.0 - 50.0 % [facility]eAutoSS Lymphocytes/Leukocytes Auto (Bld) [Pure # fraction] 3.3 E9/L Normal 1.0 - 4.0 E9/L [facility]eAutoSS Monocytes/100 WBC (Bld) 5.4 % Normal 4.0 - 14.0 % [facility]eAutoSS Monocytes/Leukocytes Auto (Bld) [Pure # fraction] 0.6 E9/L Normal 0.2 - 1.0 E9/L [facility]AutoSS Neutrophils/100 WBC (Bld) 65.1 % Normal 36.0 - 75.0 % [facility]eAutoSS Neutrophils/Leukocytes Auto (Bld) [Pure # fraction] 7.8 E9/L High 2.0 - 7.5 E9/L [facility] HEMATOLOGYOrdered By: Dianna Watt on 02-04-2023 Erythrocyte distribution width (RBC) [Ratio] 12.8 % Normal 10.9 - 14.2 % [facility] Hematocrit (Bld) [Volume fraction] 39.7 % Normal 34.0 - 46.0 % [facility]Auto[facility] Hemoglobin (Bld) [Mass/Vol] 13.4 g/dL Normal 12.0 - 16.0 gm/dL [facility] MCH (RBC) [Entitic mass] 27.7 pg Normal 27.0 - 34.0 pg [facility] MCHC (RBC) [Mass/Vol] 33.7 g/dL Normal 31.4 - 36.0 gm/dL [facility]Auto[facility] MCV (RBC) [Entitic vol] 82.4 fL Normal 80.0 - 100.0 fL [facility] Platelet mean volume (Bld) [Entitic vol] 8.4 fL Normal 6.4 - 10.8 fL [facility]eAutoSS Platelets (Bld) [#/Vol] 313.0 E9/L Normal 150. 0 - 500.0 E9/L [facility] RBC (Bld) [#/Vol] 4.8 E12/L Normal 4.3 - 5.9 E12/L [facility] WBC corrected for nucl RBC Auto (Bld) [#/Vol] 12.0 E9/L High 4.0 - 11.0 E9/L [facility] [place] [facility] Hep Func Panelon 02-04-2023 Albumin [Mass/Vol] 4.1 g/dL Normal 3.3-5.0 [facility] Comment on above: Performed By: #### 2 [id number], 2586437, 6589900, 7460933, [id number], 9752287 ####[facility] [address] [place] [address] Albumin/Globulin (S) [Mass conc ratio] 1.2 Normal 1.1-2.2 [facility] Comment on above: Performed By: #### 2 643428, 9938209, 3446013, 5723678, 49673029, 7827935 ####[facility] [address] [place] [address] ALP [Catalytic activity/Vol] 47 Int._Unit/L Normal 21-98 [facility] Comment on above: Performed By: #### 2 470852, 0576338, 9849506, 2515583, 15905264, 3235701 ####[facility] [address] [place] [address] ALT No additional P-5'-P [Catalytic activity/Vol] 24 Int._Unit/L Normal 6-46 [facility] Comment on above: Performed By: #### 2 762523, 2523531, 0672565, 6167471, 15266029, 6220951 ####[facility] [address] [place] [address] AST [Catalytic activity/Vol] 20 Int._Unit/L Normal 5-43 [facility] Comment on above: Performed By: #### 2 067705, 4896554, 0853342, 6304962, 16276374, 5064919 ####[facility] [address] [place] [address] Bilirubin [Mass/Vol] 0.9 mg/dL Normal 0.0-1.[address] [facility] Comment on above: Performed By: #### 2 762800, 6669538, 5394696, 5926221, 56636073, 7672252 ####[facility] [address] [place] [address] Bilirubin.direct [Mass/Vol] 0.2 mg/dL Normal 0.1-0.4 [facility] Comment on above: Performed By: #### 2 229211, 0528374, 5401891, 3195798, 83326352, 1687131 ####[address] [address] Bilirubin.indirect [Mass or moles/Vol] 0.7 mg/dL Normal 0.1-0.9 [facility] Comment on above: Performed By: #### 2 476574, 4322422, 2039593, 7218570, 32314956, 5212049 ####[address] [address] Globulin (S) [Mass/Vol] 3.5 g/dL Normal 1.4-4.0 [facility] Comment on above: Performed By: #### 2 981699, 0577284, 9145644, 5315825, 80583886, 1898277 ####[address] [address] Protein [Mass/Vol] 7.6 g/dL Normal 6.0-7.8 [facility] Comment on above: Performed By: #### 2 004049, 9898285, 6200412, 0593307, 36104914, 9298013 ####[address] [address] Lipase Levelon 02-04-2023 Lipase [Catalytic activity/Vol] 48 U/L Normal 13-58 [facility] Comment on above: Performed By: #### 2 640404, 9963350, 7106028, 5473806, 23959677, 4398179 ####[address] [address] UA With Cult Reflexon 05-02- 2023 Bilirubin Ql (U) Negative Normal Negative [facility] Comment on above: Performed By: #### 1 [id number] ####[facility] [address] [place] [address] Clarity (U) CLEAR Normal Clear [facility] Comment on above: Performed By: #### 1 [id number] ####[facility] [address] [place] [address] Color (U) YELLOW Normal Yellow [facility] Comment on above: Performed By: #### 1 8096839 ####[facility] [address] [place] [address] Epithelial cells.squamous LM.HPF (Urine sed) [#/Area] 0-2 Normal 0-2 [facility] Comment on above: Performed By: #### 1 6234264 ####[facility] [address] [place] [address] Glucose Test strip (U) [Mass/Vol] Negative Normal Negative [facility] Comment on above: Performed By: #### 1 6838366 ####[facility] [address] [place] [address] Hemoglobin Ql (U) Negative Normal Negative [facility] Comment on above: Performed By: #### 1 6790208 ####[facility] [address] [place] [address] Ketones (U) [Mass/Vol] Negative Normal Negative [facility] Comment on above: Performed By: #### 1 6771853 ####[facility] [address] [place] [address] Pana.plasma/Pana. RBC (Bld) [Mass ratio] 0-3 Normal 0-3 [facility] Comment on above: Performed By: #### 1 0733091 ####[facility] [address] [place] [address] Nitrite Ql (U) Negative Normal Negative [facility] Comment on above: Performed By: #### 1 [id number] ####[address] [place] [address] pH (U) 6.5 [pH] Invalid Interpretation Code 5.0-9.0 [facility] Comment on above: Performed By: #### 1 3639015 ####[address] [address] Protein (U) [Mass/Vol] Negative Normal Negative [facility] Comment on above: Performed By: #### 1 9178028 ####[address] [address] Specific gravity (U) [Rel density] <=1.005 Invalid Interpretation Code 1.005-1.030 [facility] Comment on above: Performed By: #### 1 7776511 ####[address] [address] Type of Urine collection method Clean Catch Normal [facility] Comment on above: Performed By: #### 1 9984401 ####[address] [address] Urobilinogen Qn (U) 0.2 {Melina'U}/dL Normal 0.0-1.0 [facility] Comment on above: Performed By: #### 1 8344543 ####[address] [address] WBC Auto Ql (U) Negative Normal Negative [facility] Comment on above: Performed By: #### 1 1082140 ####[address] [address] WBC LM.HPF (Urine sed) [#/Area] 0-5 Normal 0-5 [facility] Comment on above: Performed By: #### 1 3043883 ####[address] [address] URINALYSISOrdered By: Praful Benson on 02-04-2023 Bilirubin Ql (U) Negative (02/04/23 8:13 PM) Normal Negative [facility] [place] UA Auto SS Clarity (U) Clear (02/04/23 8:13 PM) Normal Clear [facility]A Auto SS Color (U) Yellow (02/04/23 8:13 PM) Normal Yellow [facility] UA Auto SS Epithelial cells.squamous LM.HPF (Urine sed) [#/Area] 0-2 /HPF Normal 0-2/HPF [facility] UA Aut o SS Glucose Test strip (U) [Mass/Vol] Negative (02/04/23 8:13 PM) Normal Negative [facility] UA Auto SS Hemoglobin Ql (U) Negative (02/04/23 8:13 PM) Normal Negative [facility] UA Auto SS Ketones (U) [Mass/Vol] Negative (02/04/23 8:13 PM) Normal Negative [facility] UA Auto SS Pana.plasma/Pana. RBC (Bld) [Mass ratio] 0-3 /HPF Normal 0-3/HPF [facility] A uto SS Nitrite Ql (U) Negative (02/04/23 8:13 PM) Normal Negative [facility] UA Auto SS pH (U) 6.5 *NA* (02/04/23 8:13 PM) Invalid Interpretation Code 5.0 - 9.0 [facility] UA Auto SS Protein (U) [Mass/Vol] Negative (02/04/23 8:13 PM) Normal Negative [facility] UA Auto SS Specific gravity (U) [Rel density] <=1.005 *NA* (02/04/23 8:13 PM) Invalid Interpretation Code 1.005 - 1.030 [facility] UA Auto SS UA Spec Desc Clean Catch (02/04/23 8:13 PM) Normal [facility] UA Auto SS Urobilinogen Qn (U) 0.3619538 {Melina'U}/dL Normal 0.0 - 1.0 EU/dL [facility] UA Auto SS WBC Auto Ql (U) Negative (02/04/23 8:13 PM) Normal Negative [facility] UA Auto SS WBC LM.HPF (Urine sed) [#/Area] 0-5 /HPF Normal 0-5/HPF [facility] UA Auto SS eGFRon 02-04-2023 GFR/1.73 sq M.predicted among non-blacks MDRD (S/P/Bld) [Vol rate/Area] 80 mL/min/1.73 m2 Normal >=59 [facility] Comment on above: Order Comment: Order added by Discern Expert. Result Comment: Supervisor [employer] mónica kidney disease could be indicated at eGFR's of less than 60 mL/min/1.73m2. Kidney failure is indicated at less than 15 mL/min/1.73m2. Performed By: #### 2 673617, 9765008, 4373235, 5660543, 44754024, 7760801 ####[facility] [address] [place] [address] A1C HEMOGLOBINon 01-17-2023 HbA1c (Bld) [Mass fraction] 5.0 % [facility] Other HbA1c (Bld) [Mass fraction]o n 01-17-2023 A1C HEMOGLOBIN [facility] [employer] Other CARDIAC KRAIG ADMITon 023 CK [Catalytic activity/Vol] 70 U/L Normal 26-192 [facility] Comment on above: Performed By: #### I NFLUAB #### [facility] [address] [place] [address] Dr. Nathanael Freedman CK.MB [Mass/Vol] 0.96 ng/mL Normal <=3.60 [facility] Comment on above: Performed By: #### I NFLUAB #### [facility] [address] [place] [address] Dr. Nathanael Freedman HSTROP 6.9 pg/mL Normal 4.0-51.3 [facility] Comment on above: Result Comment: CUT- OFF POINTS HAVE BEEN ESTABLISHED BASED ON THE FOURTH UNIVERSAL DEFINITIONS OF MYOCARDIAL INFARCTION. THE UPPER REFERENCE LIMIT (URL) OF TROPONIN, DEFINED THE 99TH PERCENTILE OF cTnI DISTRIBUTION IN A REFERENCE POPULATION, HAS BEEN CONFIRMED THE DECISION THRESHOLD FOR DC DIAGNOSIS. Performed By: #### I NFLUAB #### [facility] [address] [place] [address] Dr. Nathanael Freedman STEFANIA 43 ng/mL Normal 9-82 [facility] Comment on above: Performed By: #### I NFLUAB #### [facility] [address] [place] [address] Dr. Nathanael Freedman CBC AUTO DIFFon 01-12-2023 BASO # 0.1 103/ul Normal 0.0-0.1 [facility] Comment on above: Performed By: #### C BC #### [facility] [address] [address] [address] Nathanael Freedman Basophils/100 WBC (Bld) 0.5 % Normal 0.2-2.0 [facility] Comment on above: Performed By: #### C BC #### [facility] [address] [address] [address] Nathanael Freedman EO # 0.1 103/ul Normal 0.0-0.7 [facility] Comment on above: Performed By: #### C BC #### [facility] [address] [address] [address] Nathanael Freedman Eosinophils/100 WBC (Bld) 1.0 % Normal 0.9-7.0 [facility] Comment on above: Performed By: #### C BC #### [facility] [address] [place] [address] Dr. Nathanael Freedman Erythrocyte distribution width (RBC) [Ratio] 12.6 % Normal 11.0-15.0 [facility] Comment on above: Performed By: #### C BC #### [facility] [address] [place] [address] Dr. Nathanael Freedman Hematocrit (Bld) [Volume fraction] 41.5 % Normal 36.0-48.0 [facility] Comment on above: Performed By: #### C BC #### [facility] [address] [place] [address] Dr. Nathanael Freedman Hemoglobin (Bld) [Mass/Vol] 14.4 g/dL Normal 12.0-16.0 [facility] Comment on above: Performed By: #### C BC #### [facility] [address] [place] [address] Dr. Nathanael Freedman IG # 0.07 10e3/ul Critically high 0.00-0.03 [facility] Comment on above: Performed By: #### C BC #### [facility] [address] [address] [address] Nathanael Freedman IG % 0.6 % Critically high 0.0-0.5 [facility] Comment on above: Performed By: #### C BC #### [facility] [address] [address] [address] Nathanael Freedman LYMPH # 2.3 103/ul Normal 1.2-3.8 [facility] Comment on above: Performed By: #### C BC #### [facility] [address] [place] [address] Dr. Nathanael Freedman Lymphocytes/100 WBC (Bld) 18.1 % Critically low 20.5-60.0 [facility] Comment on above: Performed By: #### C BC #### [facility] [address] [place] [address] Dr. Nathanael Freedman MANUAL DIFF REQ NO Normal [facility] Comment on above: Performed By: #### C BC #### [facility] [address] [place] [address] Dr. Nathanael Freedman MCH (RBC) [Entitic mass] 28.6 pg Normal 26.7-34.0 [facility] Comment on above: Performed By: #### C BC #### [facility] [address] [place] [address] Dr. Nathanael Freedman MCHC (RBC) [Mass/Vol] 34.7 g/dL Normal 29.9-35.2 [facility] Comment on above: Performed By: #### C BC #### [facility] [address] [place] [address] Dr. Nathanael Freedman MCV (RBC) [Entitic vol] 82.3 fL Normal 81.0-99.0 [facility] Comment on above: Performed By: #### C BC #### [facility] [address] [place] [address] Dr. Nathanael Freedman MONO # 0.6 103/ul Normal 0.3-0.8 [facility] Comment on above: Performed By: #### C BC #### [facility] [address] [place] [address] Dr. Nathanael Freedman Monocytes/100 WBC (Bld) 4.8 % Normal 1.7-12.0 [facility] Comment on above: Performed By: #### C BC #### [facility] [address] [address] [address] Nathanael Freedman NEUT # 9.3 103/ul Critically high 1.4-6.5 [facility] Comment on above: Performed By: #### C BC #### [facility] [address] [place] [address] Dr. Nathanael Freedman Neutrophils/100 WBC (Bld) 75.0 % Normal 43.0-75.0 [facility] Comment on above: Performed By: #### C BC #### [facility] [address] [place] [address] Dr. Nathanael Freedman Platelet mean volume (Bld) [Entitic vol] 9.6 fL Normal 9.5-13.5 [facility] Comment on above: Performed By: #### C BC #### [facility] [address] [place] [address] Dr. Nathanael Freedman PLT 332 103/ul Normal 150-450 [facility] Comment on above: Performed By: #### C BC #### [facility] [address] [place] [address] Dr. Nathanael Freedman RBC 5.04 106/ul Normal 4.20-5.40 [facility] Comment on above: Performed By: #### C BC #### [facility] [address] [place] [address] Dr. Nathanael Freedman WBC 12.4 103/ul Critically high 4.0-11.0 [facility] Comment on above: Performed By: #### C BC #### [facility] [address] [place] [address] Dr. Nathanael Freedman MAGNESIUMon 01-12-2023 Magnesium [Mass/Vol] 1.9 mg/dL Normal 1.8-2.4 [facility] Comment on above: Performed By: #### I NFLUAB #### [facility] [address] [place] [address] Dr. Nathanael Freedman PROF 14(COMP METB)on 023 Albumin [Mass/Vol] 4.1 g/dL Normal 3.4-5.0 [facility] Comment on above: Performed By: #### I NFLUAB #### [facility] [address] [address] [address] Nathanael Freedman Albumin/Globulin [Mass ratio] 1.1 {ratio} Normal [facility] Comment on above: Performed By: #### I NFLUAB #### [facility] [address] [address] [address] Nathanael Freedman ALP [Catalytic activity/Vol] 69 U/L Normal 46-116 [facility] Comment on above: Performed By: #### I NFLUAB #### [facility] [address] [address] [address] Nathanael Freedman ALT [Catalytic activity/Vol] 47 U/L Normal 14-59 [facility] Comment on above: Performed By: #### I NFLUAB #### [facility] [address] [address] [address] Nathanael Freedman Anion gap [Moles/Vol] 13.7 mmol/L Normal [facility] Comment on above: Performed By: #### I NFLUAB #### [facility] [address] [address] [address] Nathanael Freedman AST [Catalytic activity/Vol] 33 U/L Normal 15-37 [facility] Comment on above: Performed By: #### I NFLUAB #### [facility] [address] [place] [address] Dr. Nathanael Freedman Bilirubin [Mass/Vol] 0.7 mg/dL Normal 0.2-1.0 [facility] Comment on above: Performed By: #### I NFLUAB #### [facility] [address] [address] [address] Nathanael Freedman Calcium [Mass/Vol] 9.2 mg/dL Normal 8.5-10.1 [facility] Comment on above: Performed By: #### I NFLUAB #### [facility] [address] [address] [address] Nathanael Freedman Chloride [Moles/Vol] 102 mmol/L Normal 98-107 [facility] Comment on above: Performed By: #### I NFLUAB #### [facility] [address] [address] [address] Nathanael Freedman CO2 [Moles/Vol] 27.0 mmol/L Normal 21.0-32.0 [facility] Comment on above: Performed By: #### I NFLUAB #### [facility] [address] [address] [address] Nathanael Freedman Creatinine [Mass/Vol] 0.86 mg/dL Normal 0.55-1.02 [facility] Comment on above: Performed By: #### I NFLUAB #### [facility] [address] [address] [address] Nathnaael Freedman EGFR-AF KUWAITI >60 Normal >=60 [facility] Comment on above: Performed By: #### I NFLUAB #### [facility] [address] [place] [address] Dr. Nathanael Freedman EGFR-NON AF [place]I >60 Normal >=60 [facility] Comment on above: Performed By: #### I NFLUAB #### [facility] [address] [address] [address] Nathanael Freedman Globulin (S) [Mass/Vol] 3.6 g/dL Normal [facility] Comment on above: Performed By: #### I NFLUAB #### [facility] [address] [place] [address] Dr. Nathanael Freedman Glucose [Mass/Vol] 111 mg/dL Critically high 74-106 [facility] Comment on above: Performed By: #### I NFLUAB #### [facility] [address] [address] [address] Nathanael Freedman Potassium [Moles/Vol] 3.7 mmol/L Normal 3.5-5.1 [facility] Comment on above: Performed By: #### I NFLUAB #### [facility] [address] [address] [address] Nathanael Freedman Protein [Mass/Vol] 7.7 g/dL Normal 6.4-8.2 [facility] Comment on above: Performed By: #### I NFLUAB #### [facility] [address] [address] [address] Nathanael Freedman Sodium [Moles/Vol] 139 mmol/L Normal 136-145 [facility] Comment on above: Performed By: #### I NFLUAB #### [facility] [address] [place] [address] Dr. Nathanael Freedman Urea nitrogen [Mass/Vol] 6.0 mg/dL Critically low 7.0-18.0 [facility] Comment on above: Performed By: #### I NFLUAB #### [facility] [address] [address] [address] Nathanael Freedman Urea nitrogen/Creatinine [Mass ratio] 7.0 mg/mg Normal [facility] Comment on above: Performed By: #### I NFLUAB #### [facility] [address] [place] [address] Dr. Nathanael Freedman TROPONIN, HIGH SENSITIVITYon 01-12-2023 HSTROP 7.0 pg/mL Normal 4.0-51.3 [facility] Comment on above: Result Comment: CUT- OFF POINTS HAVE BEEN ESTABLISHED BASED ON THE FOURTH UNIVERSAL DEFINITIONS OF MYOCARDIAL INFARCTION. THE UPPER REFERENCE LIMIT (URL) OF TROPONIN, DEFINED THE 99TH PERCENTILE OF cTnI DISTRIBUTION IN A REFERENCE POPULATION, HAS BEEN CONFIRMED THE DECISION THRESHOLD FOR DC DIAGNOSIS. Performed By: #### H STROPN #### [facility] [address] [place] [address] Dr. Nathanael Freedman COVID/FLU/RSV RT-PCRon 12-16 SARS-CoV-2 (COVID-19) RNA KIRTI+probe Ql (Unsp spec) Positive [facility] Other COVID/FLU/RSV RT-PCR Negative [facility] Other CT Chest w/o Contraston 10-07 CT Chest w/o Contrast HISTORY: Dry cough . Shortness of breath. Wheezing. Chest tightness. Dyspnea. History of Covid, history of asthma. TECHNIQUE: Spiral CT acquisition of the chest from the thoracic inlet to the upper abdomen. Sagittal and coronal reconstructions. MIP axial reconstructions. Contrast: None. All CT scans at this facility use dose modulation, iterative reconstruction, and/or weight based dosing when appropriate to reduce radiation dose to as low as reasonably achievable. COMPARISON: Chest x-ray 02/11/2022. RESULT: Lung parenchyma and pleura: Central airways appear patent. No consolidation. No pleural effusion. No pneumothorax. Thoracic inlet, heart, and mediastinum: Visualized thyroid unremarkable. No axillary, mediastinal, or hilar lymphadenopathy. Normal thoracic aorta. Normal pulmonary artery. Normal heart size. No coronary artery calcifications. No pericardial effusion or thickening. Esophagus nondilated. Bones and soft tissues: No destructive bone lesion or acute osseous findings. Chest wall unremarkable. Upper abdomen: No acute abnormality in the imaged upper abdomen. Cholecystectomy. IMPRESSION: No acute process in the thorax. Report reported and signed by Brown Alvarenga on 11/01/2022 1556 Normal [facility] Referral Nurse COVID + FLU Quick Testingon 10-04-2022 SARS-CoV-2 (COVID-19) RNA KIRTI+probe Ql (Unsp spec) Negative [facility] [employer] Other COVID + FLU Quick Testing Negative [facility] [employer] Other CBC AUTO DIFFon 09-18-2022 BASO # 0.1 103/ul Normal 0.0-0.1 [facility] Comment on above: Performed By: #### C BC #### [facility] [address] [place] [address] Dr. Nathanael Freedman Basophils/100 WBC (Bld) 0.7 % Normal 0.2-2.0 [facility] Comment on above: Performed By: #### C BC #### [facility] [address] [place] [address] Dr. Nathanael Freedman EO # 0.4 103/ul Normal 0.0-0.7 [facility] Comment on above: Performed By: #### C BC #### [facility] [address] [place] [address] Dr. Nathanael Freedman Eosinophils/100 WBC (Bld) 4.8 % Normal 0.9-7.0 [facility] Comment on above: Performed By: #### C BC #### [facility] [address] [place] [address] Dr. Nathanael Freedman Erythrocyte distribution width (RBC) [Ratio] 11.9 % Normal 11.0-15.0 [facility] Comment on above: Performed By: #### C BC #### [facility] [address] [place] [address] Dr. Nathanael Freedman Hematocrit (Bld) [Volume fraction] 38.2 % Normal 36.0-48.0 [facility] Comment on above: Performed By: #### C BC #### [facility] [address] [place] [address] Dr. Nathanael Freedman Hemoglobin (Bld) [Mass/Vol] 13.3 g/dL Normal 12.0-16.0 [facility] Comment on above: Performed By: #### C BC #### [facility] [address] [place] [address] Dr. Nathanael Freedman IG # 0.05 10e3/ul Critically high 0.00-0.03 [facility] Comment on above: Performed By: #### C BC #### [facility] [address] [place] [address] Dr. Nathanael Freedman IG % 0.7 % Critically high 0.0-0.5 [facility] Comment on above: Performed By: #### C BC #### [facility] [address] [place] [address] Dr. Nathanael Freedman LYMPH # 0.5 103/ul Critically low 1.2-3.8 [facility] Comment on above: Performed By: #### C BC #### [facility] [address] [place] [address] Dr. Nathanael Freedman Lymphocytes/100 WBC (Bld) 6.3 % Critically low 20.5-60.0 [facility] Comment on above: Performed By: #### C BC #### [facility] [address] [place] [address] Dr. Nathanael Freedman MANUAL DIFF REQ NO Normal [facility] Comment on above: Performed By: #### C BC #### [facility] [address] [place] [address] Dr. Nathanael Freedman MCH (RBC) [Entitic mass] 28.9 pg Normal 26.7-34.0 [facility] Comment on above: Performed By: #### C BC #### [facility] [address] [place] [address] Dr. Nathanael Freedman MCHC (RBC) [Mass/Vol] 34.8 g/dL Normal 29.9-35.2 [facility] Comment on above: Performed By: #### C BC #### [facility] [address] [place] [address] Dr. Nathanael Freedman MCV (RBC) [Entitic vol] 82.9 fL Normal 81.0-99.0 [facility] Comment on above: Performed By: #### C BC #### [facility] [address] [place] [address] Dr. Nathanael Freedman MONO # 0.5 103/ul Normal 0.3-0.8 [facility] Comment on above: Performed By: #### C BC #### [facility] [address] [place] [address] Dr. Nathanael Freedman Monocytes/100 WBC (Bld) 6.5 % Normal 1.7-12.0 [facility] Comment on above: Performed By: #### C BC #### [facility] [address] [place] [address] Dr. Nathanael Freedman NEUT # 6.1 103/ul Normal 1.4-6.5 [facility] Comment on above: Performed By: #### C BC #### [facility] [address] [place] [address] Dr. Nathanael Freedman Neutrophils/100 WBC (Bld) 81.0 % Critically high 43.0-75.0 [facility] Comment on above: Performed By: #### C BC #### [facility] [address] [place] [address] Dr. Nathanael Freedman Platelet mean volume (Bld) [Entitic vol] 9.9 fL Normal 9.5-13.5 [facility] Comment on above: Performed By: #### C BC #### [facility] [address] [place] [address] Dr. Nathanael Freedman PLT 237 103/ul Normal 150-450 [facility] Comment on above: Performed By: #### C BC #### [facility] [address] [place] [address] Dr. Nathanael Freedman RBC 4.61 106/ul Normal 4.20-5.40 [facility] Comment on above: Performed By: #### C BC #### [facility] [address] [place] [address] Dr. Nathanael Freedman WBC 7.5 103/ul Normal 4.0-11.0 [facility] Comment on above: Performed By: #### C BC #### [facility] [address] [place] [address] Dr. Nathanael Freedman CULTURE BLOODon 09-18-2022 Microscopic examination of blood, culture Culture Observations: NO GROWTH AT 5 DAYS. Normal [facility] Comment on above: Performed By: #### C VDTBH #### [facility] [address] [place] [address] Dr. Nathanael Freedman Microscopic examination of blood, culture Culture Observations: NO GROWTH AT 5 DAYS. Normal [facility] Comment on above: Performed By: #### C VDTBH #### [facility] [address] [place] [address] Dr. Nathanael Freedman [facility] SARS-CoV-2 (COVID-19) RNA KIRTI+probe Ql (Unsp spec) Not detected Normal NOT DETECTED [facility] Comment on above: Result Comment: This test is not yet approved or cleared by the [place] FDA. When there are no FDA-approved or cleared tests available, and other criteria are met, FDA can make tests available under an emergency access mechanism called an Emergency Use Authorization (EUA). The EUA for this test is supported by the [place] of Health and Human Service's (HHS's) declaration that circumstances exist to justify the emergency use of in vitro diagnostics for the detection and/or diagnosis of the virus that causes COVID-19. This EUA will remain in effect (meaning this test can be used) for the duration of the COVID-19 declaration justifying emergency of IVDs, unless it is terminated or revoked by FDA (after which the test may no longer be used). When diagnostic testing is negative, the possibility of a false negative should be considered in the context of a patient's recent exposures and the presence of clinical signs and symptoms consistent with SARS-CoV-2. Performed By: #### C VDTB #### [facility] [address] [place] [address] Dr. Nathanael Freedman ER URINE PROFILEon 2 Bilirubin Ql (U) Negative Normal NEGATIVE [facility] Comment on above: Performed By: #### Savanah DRUAN UMICRO #### [facility] [address] [place] [address] Dr. Nathanael Freedman Clarity (U) CLEAR Normal CLEAR [facility] Comment on above: Performed By: #### Savanah DURAN UMICRO #### [facility] [address] [place] [address] Dr. Nathanael Freedman Color (U) LT. YELLOW Normal YELLOW [facility] Comment on above: Performed By: #### Savanah DURAN UMICRO #### [facility] [address] [place] [address] Dr. Nathanael JIMÉNEZHarish A micrscopic examination will be performed if indicated. Normal [facility] Comment on above: Performed By: #### Savanah DURAN UMICRO #### [facility] [address] [place] [address] Dr. Nathanael Freedman Glucose Ql (U) Negative Normal NEGATIVE [facility] Comment on above: Performed By: #### Savanah DURAN UMICRO #### [facility] [address] [place] [address] Dr. Nathanael Freedman Hemoglobin Ql (U) TRACE-LYSED Abnormal NEGATIVE [facility] Comment on above: Performed By: #### Savanah DURAN UMICRO #### [facility] [address] [place] [address] Dr. Nathanael Freedman Ketones Ql (U) Negative Normal NEGATIVE [facility] Comment on above: Performed By: #### Savanah DURAN UMICRO #### [facility] [address] [place] [address] Dr. Nathanael Freedman LEUKOCYTES Negative Normal NEGATIVE [facility] Comment on above: Performed By: #### Savanah DURAN, UMICRO #### [facility] [address] [place] [address] Dr. Nathanael Freedman Nitrite Ql (U) Negative Normal NEGATIVE [facility] Comment on above: Performed By: #### Savanah DURAN, UMICRO #### [facility] [address] [place] [address] Dr. Nathanael Freedman pH (U) 6.5 [pH] Normal 5-9 [facility] Comment on above: Performed By: #### Savanah DURAN, UMICRO #### [facility] [address] [place] [address] Dr. Nathanael Freedman SPEC GRAVITY 1.010 Normal 1.005-<=1.0 25 [facility] Comment on above: Performed By: #### Savanah DURAN UMICRO #### [facility] [address] [place] [address] Dr. Nathanael Freedman UA PROTEIN Negative Normal NEGATIVE/ TRACE [facility] Comment on above: Performed By: #### Savanah DURAN UMICRO #### [facility] [address] [place] [address] Dr. Nathanael Freedman UR MICRO IND INDICATED Normal [facility] Comment on above: Performed By: #### Savanah DURAN UMICRO #### [facility] [address] [place] [address] Dr. Nathanael Freedman Urobilinogen Qn (U) 0.2 {Melina'U}/dL Normal 0.2 - 1. 0 [facility] Comment on above: Performed By: #### Savanah DURAN, UMICRO #### [facility] [address] [place] [address] Dr. Nathanael Freedman INFLUENZA A AND B AGon 09-18 INFLUANEGH SEE BELOW Normal [facility] Comment on above: Result Comment: Nega tive for Flu A protein angiten. Infection due to Flu A cannot be ruled out. Flu A angiten in the sample may be below the detection limit of the test. Performed By: #### I NFLUAB #### [facility] [address] [place] [address] Dr. Nathanael Freedman [facility] SEE BELOW Normal [facility] Comment on above: Result Comment: Nega tive for Flu B protein antigen. Infection due to Flu B cannot be ruled out. Flu B antigen in the sample may be below the detection limit of the test. Performed By: #### I NFLUAB #### [facility] [address] [place] [address] Dr. Nathanael Freedman INFLUENZA A AG Negative Normal NEGATIVE SEE COMMENT [facility] Comment on above: Performed By: #### I NFLUAB #### [facility] [address] [place] [address] Dr. Nathanael Freedman INFLUENZA B AG Negative Normal NEGATIVE SEE COMMENT [facility] Comment on above: Performed By: #### I NFLUAB #### [facility] [address] [place] [address] Dr. Nathanael Freedman INTERNAL CONTROLS Within Normal Limits Normal Wi thin Normal Limits [facility] Comment on above: Performed By: #### I NFLUAB #### [facility] [address] [place] [address] Dr. Nathanael Freedman LACTATE/LACTIC ACIDon 2021 Lactate [Moles/Vol] 1.0 mmol/L Normal 0.4-1.9 [facility] Comment on above: Performed By: #### I NFLUAB #### [facility] [address] [place] [address] Dr. Nathanael Freedman PROF 14(COMP METB)on 022 Albumin [Mass/Vol] 4.0 g/dL Normal 3.4-5.0 [facility] Comment on above: Performed By: #### I NFLUAB #### [facility] [address] [place] [address] Dr. Nathanael Freedman Albumin/Globulin [Mass ratio] 1.1 {ratio} Normal [facility] Comment on above: Performed By: #### I NFLUAB #### [facility] [address] [place] [address] Dr. Nathanael Freedman ALP [Catalytic activity/Vol] 62 U/L Normal 46-116 [facility] Comment on above: Performed By: #### I NFLUAB #### [facility] [address] [place] [address] Dr. Nathanael Freedman ALT [Catalytic activity/Vol] 31 U/L Normal 14-59 [facility] Comment on above: Performed By: #### I NFLUAB #### [facility] [address] [place] [address] Dr. Nathanael Freedman Anion gap [Moles/Vol] 15.0 mmol/L Normal [facility] Comment on above: Performed By: #### I NFLUAB #### [facility] [address] [place] [address] Dr. Nathanael Freedman AST [Catalytic activity/Vol] 33 U/L Normal 15-37 [facility] Comment on above: Performed By: #### I NFLUAB #### [facility] [address] [place] [address] Dr. Nathanael Freedman Bilirubin [Mass/Vol] 0.5 mg/dL Normal 0.2-1.0 [facility] Comment on above: Performed By: #### I NFLUAB #### [facility] [address] [place] [address] Dr. Nathanael Freedman Calcium [Mass/Vol] 9.2 mg/dL Normal 8.5-10.1 [facility] Comment on above: Performed By: #### I NFLUAB #### [facility] [address] [place] [address] Dr. Nathanael Freedman Chloride [Moles/Vol] 99 mmol/L Normal 98-107 [facility] Comment on above: Performed By: #### I NFLUAB #### [facility] [address] [place] [address] Dr. Nathanael Freedman CO2 [Moles/Vol] 27.0 mmol/L Normal 21.0-32.0 [facility] Comment on above: Performed By: #### I NFLUAB #### [facility] [address] [place] [address] Dr. Nathanael Freedman Creatinine [Mass/Vol] 0.86 mg/dL Normal 0.55-1.02 [facility] Comment on above: Performed By: #### I NFLUAB #### [facility] [address] [place] [address] Dr. Nathanael Freedman EGFR-AF KUWAITI >60 Normal >=60 [facility] Comment on above: Performed By: #### I NFLUAB #### [facility] [address] [address] [address] Nathanael Freedman EGFR-NON AF KUWAITI >60 Normal >=60 [facility] Comment on above: Performed By: #### I NFLUAB #### [facility] [address] [place] [address] Dr. Nathanael Freedman Globulin (S) [Mass/Vol] 3.8 g/dL Normal [facility] Comment on above: Performed By: #### I NFLUAB #### [facility] [address] [place] [address] Dr. Nathanael Freedman Glucose [Mass/Vol] 106 mg/dL Normal 74-106 [facility] Comment on above: Performed By: #### I NFLUAB #### [facility] [address] [place] [address] Dr. Nathanael Freedman Potassium [Moles/Vol] 4.0 mmol/L Normal 3.5-5.1 [facility] Comment on above: Performed By: #### I NFLUAB #### [facility] [address] [place] [address] Dr. Nathanael Freedman Protein [Mass/Vol] 7.8 g/dL Normal 6.4-8.2 [facility] Comment on above: Performed By: #### I NFLUAB #### [facility] [address] [place] [address] Dr. Nathanael Freedman Sodium [Moles/Vol] 137 mmol/L Normal 136-145 [facility] Comment on above: Performed By: #### I NFLUAB #### [facility] [address] [address] [address] Nathanael Freedman Urea nitrogen [Mass/Vol] 8.0 mg/dL Normal 7.0-18.0 [facility] Comment on above: Performed By: #### I NFLUAB #### [facility] [address] [place] [address] Dr. Nathanael Freedman Urea nitrogen/Creatinine [Mass ratio] 9.3 mg/mg Normal [facility] Comment on above: Performed By: #### I NFLUAB #### [facility] [address] [place] [address] Dr. Nathanael Freedman URINE MICROSCOPIC ONLYon BACTERIA TRACE Abnormal NONE SEEN [facility] Comment on above: Performed By: #### E RUR, UMICRO #### [facility] [address] [place] [address] Dr. Nathanael Freedman Bacteria identified Cx Nom (U) NOT INDICATED Normal [facility] Comment on above: Performed By: #### E RUR, UMICRO #### [facility] [address] [place] [address] Dr. Nathanael Freedman CAST NONE SEEN Normal NONE SEEN [facility] Comment on above: Performed By: #### E RUR, UMICRO #### [facility] [address] [place] [address] Dr. Nathanael Freedman Crystals LM Nom (Urine sed) NONE SEEN Normal NONE SEEN [facility] Comment on above: Performed By: #### E ERASMOR, UMICRO #### [facility] [address] [place] [address] Dr. Nathanael Freedman Epithelial cells LM Ql (Urine sed) MODERATE Abnormal NONE SEEN /RARE [facility] Comment on above: Performed By: #### E RUR, UMICRO #### [facility] [address] [place] [address] Dr. Nathanael Freedman MUCOUS TRACE Abnormal NONE SEEN [facility] Comment on above: Performed By: #### E RUR, UMICRO #### [facility] [address] [place] [address] Dr. Nathanael Freedman RBC 2-5 Abnormal 0-2 [facility] Comment on above: Performed By: #### E RUR, UMICRO #### [facility] [address] [address] [address] Nathanael Freedman WBC 0-2 Abnormal NONE SEEN [facility] Comment on above: Performed By: #### NIALL GARCIA #### [facility] [address] [address] [address] Nathanael Freedman Creatinine and Glomerular fi ltration rate.predicted panel (S/P/Bld)Ordered By: Jr Mancini on 09-13-2022 Creatinine [Mass/Vol] 0.75 mg/dL 0.44-1.03 [facility] Estimated glomerular filtrat ion rate (GFR) non- AmericanOrdered By: Jr Mancini on 09-13-2022 GFR/1.73 sq M.predicted among non-blacks MDRD (S/P/Bld) [Vol rate/Area] > 60 mL/Min [facility] No Panel InformationOrdered By: Jr Mancini on 09-13-2022 Estimated GFR () > 60 mL/Min [facility] Comment on above: GFR estimated refere nce range: According to KDOQI guidelines, <60 ml/min/1.73m2 is sufficient to diagnose a patient with chronic kidney disease. Pharmacy Creatinine Clearance (Chem 87.86 [facility] Serum or plasma anion gap de terminationOrdered By: Jr Mancini on 09-13-2022 Anion gap [Moles/Vol] 9.4 mmol/L 6.0-15.0 [facility] Serum or plasma calcium jermain urement (mass/volume)Ordered By: Jr Mancini on 09-13-2022 Calcium [Mass/Vol] 8.8 mg/dL 8.2-10.2 [facility] Serum or plasma chloride jurgen surement (moles/volume)Ordered By: Jr Mancini on 09-13-2022 Chloride [Moles/Vol] 106 mmol/L 95-[address] [facility] Serum or plasma glucose jermain urement (mass/volume)Ordered By: Jr Mancnii on 09-13-2022 Glucose [Mass/Vol] 110 mg/dL 70-100 [facility] Comment on above: ADA recommended refe rence rangeRandom Glucose Reference Range is dependent on time and content of last meal. Glucose of more than 200 mg/dL in a nonstressed, ambulatory subject supports the diagnosis of Diabetes Mellitus. Serum or plasma potassium me asurement (moles/volume)Ordered By: Jr Mancini on 09-13-2022 Potassium [Moles/Vol] 3.6 mmol/L 3.5-5.1 [facility] Serum or plasma sodium measu rement (moles/volume)Ordered By: Jr Mancini on 09-13-2022 Sodium [Moles/Vol] 136 mmol/L 136-146 [facility] Serum or plasma total carbon dioxide measurement (moles/volume)Ordered By: Jr Mancini on 09-13-2022 CO2 [Moles/Vol] 24.2 mmol/L 22.0-30.0 [facility] Serum or plasma urea nitroge n measurement (mass/volume)Ordered By: Jr Mancini on 09-13-2022 Urea nitrogen [Mass/Vol] 8 mg/dL 9-23 [facility] C reactive protein [Mass/vol ume] in Serum or PlasmaOrdered By: Micheal Ocasio on 05-15-2022 CRP [Mass/Vol] 1.1 mg/dL 0.0-1.0 [facility] Erythrocyte sedimentation ra te by Photometric methodOrdered By: Micheal Ocasio on 05-15-2022 ESR Photometric method (Bld) [Velocity] 12 mm/hr 0-19 [facility] Serum nuclear antibody titer Ordered By: Micheal Ocasio on 05-15-2022 Nuclear Ab (S) [Titer] Negative . [facility] Comment on above: Negative <1:80 Borderline 1:80 Positive >1:80 ICAP nomenclature: AC-0 For more information about Hep-2 cell patterns use ANApatterns.org, the official website for the International Consensus on Antinuclear Antibody (DAYDAY) Patterns (ICAP). Performed at: [facility] [id number] Healthcare Risk Control Consultant: Damir Young PhD, Phone: [phone] Serum or plasma rheumatoid f actor measurement (units/volume)Ordered By: Micheal Ocasio on 05-15-2022 Rheumatoid factor Qn [IU]/mL <14.[address] [facility] Comment on above: Performed at: [address] [id number] Healthcare Risk Control Consultant: Damir Young PhD, Phone: [phone] Serum or plasma uric acid me asurement (mass/volume)Ordered By: Micheal Ocasio on 05-15-2022 Urate [Mass/Vol] 4.4 mg/dL 2.6-7.2 [facility] CBC W MANUAL DIFFon 03-20-20 22 ATYPICAL LYMPH # Normal [facility] Comment on above: Performed By: #### C VDTBH #### [facility] [address] [place] [address] Dr. Nathanael Freedman ATYPICAL LYMPH % Normal [facility] Comment on above: Performed By: #### C VDTBH #### [facility] [address] [place] [address] Dr. Nathanael Freedman BAND # 0.1 103/ul Normal 0.0-0.3 [facility] Comment on above: Performed By: #### C VDTBH #### [facility] [address] [place] [address] Dr. Nathanael Freedman BAND % 2 % Normal 0-5 [facility] Comment on above: Performed By: #### C VDTBH #### [facility] [address] [place] [address] Dr. Nathanael Freedman BASOM # 0.00 103/ul Normal 0.00-0.10 [facility] Comment on above: Performed By: #### C VDTBH #### [facility] [address] [place] [address] Dr. Nathanael Freedman BASOM % 0.0 % Critically low 0.2-2.0 [facility] Comment on above: Performed By: #### C VDTBH #### [facility] [address] [place] [address] Dr. Nathanael Freedman BLAST # Normal [facility] Comment on above: Performed By: #### C VDTBH #### [facility] [address] [place] [address] Dr. Nathanael Freedman BLAST % Normal [facility] Comment on above: Performed By: #### C VDTBH #### [facility] [address] [place] [address] Dr. Nathanael Freedman CORRECTED WBC Normal 4.0-11.0 [facility] [place] Comment on above: Performed By: #### C VDTBH #### [facility] [address] [place] [address] Dr. Nathanael Freedman EOS # 0.13 103/ul Normal 0.00-0.70 [facility] Comment on above: Performed By: #### C VDTBH #### [facility] [address] [place] [address] Dr. Nathanael Freedman EOS% 2.0 % Normal 0.9-7.0 [facility] Comment on above: Performed By: #### C VDTBH #### [facility] [address] [place] [address] Dr. Nathanael Freedman HCT 37.3 % Normal 36.0-48.0 [facility] Comment on above: Performed By: #### C VDTBH #### [facility] [address] [place] [address] Dr. Nathanael Freedman HGB 12.5 g/dl Normal 12.0-16.0 [facility] Comment on above: Performed By: #### C VDTBH #### [facility] [address] [place] [address] Dr. Nathanael Freedman LYMPHM # 0.50 103/ul Critically low 1.20-3.80 [facility] Comment on above: Performed By: #### C VDTBH #### [facility] [address] [place] [address] Dr. Nathanael Freedman LYMPHM% 8.0 % Critically low 20.5-60.0 [facility] Comment on above: Performed By: #### C VDTBH #### [facility] [address] [place] [address] Dr. Nathanael Freedman MCH 29.0 pg Normal 26.7-34.0 [facility] Comment on above: Performed By: #### C VDTBH #### [facility] [address] [place] [address] Dr. Nathanael Freedman MCHC 33.5 g/dl Normal 29.9-35.2 [facility] Comment on above: Performed By: #### C VDTBH #### [facility] [address] [place] [address] Dr. Nathanael Freedman MCV 86.5 fL Normal 81.0-99.0 [facility] Comment on above: Performed By: #### C VDTBH #### [facility] [address] [place] [address] Dr. Nathanael Freedman METAMYELOCYTE # Normal [facility] Comment on above: Performed By: #### C VDTBH #### [facility] [address] [place] [address] Dr. Nathanael Freedman METAMYELOCYTE % Normal [facility] Comment on above: Performed By: #### C VDTBH #### [facility] [address] [place] [address] Dr. Nathanael Freedman MONOM# 0.19 103/ul Critically low 0.30-0.80 [facility] Comment on above: Performed By: #### C VDTBH #### [facility] [address] [place] [address] Dr. Nathanael Freedman MONOM% 3.0 % Normal 1.7-12.0 [facility] Comment on above: Performed By: #### C VDTBH #### [facility] [address] [place] [address] Dr. Nathanael Feredman MPV 10.1 fL Normal 9.5-13.5 [facility] Comment on above: Performed By: #### C VDTBH #### [facility] [address] [place] [address] Dr. Nathanael Freedman MYELOCYTE # Normal [facility] Comment on above: Performed By: #### C VDTBH #### [facility] [address] [place] [address] Dr. Nathanael Freedman MYELOCYTE % Normal [facility] Comment on above: Performed By: #### C VDTBH #### [facility] [address] [place] [address] Dr. Nathanael Freedman NRBC Normal [facility] Comment on above: Performed By: #### C VDTBH #### [facility] [address] [address] [address] Nathanael Freedman PLT 195 103/ul Normal 150-450 [facility] Comment on above: Performed By: #### C VDTBH #### [facility] [address] [place] [address] Dr. Nathanael Freedman RBC 4.31 106/ul Normal 4.20-5.40 [facility] Comment on above: Performed By: #### C VDTBH #### [facility] [address] [place] [address] Dr. Nathanael Freedman RDW 12.8 % Normal 11.0-15.0 [facility] Comment on above: Performed By: #### C VDTBH #### [facility] [address] [place] [address] Dr. Nathanael Freedman SEG # 5.36 103/ul Normal 1.40-6.50 [facility] Comment on above: Performed By: #### C VDTBH #### [facility] [address] [place] [address] Dr. Nathanael Freedman SEG % 85.0 % Critically high 43.0-75.0 [facility] Comment on above: Performed By: #### C VDTBH #### [facility] [address] [place] [address] Dr. Nathanael Freedman WBC 6.3 103/ul Normal 4.0-11.0 [facility] Comment on above: Performed By: #### C VDTBH #### [facility] [address] [place] [address] Dr. Nathanael Freedman CRPon 03-20-2022 CRP 2.7 mg/dL Critically high <=1.0 [facility] Comment on above: Performed By: #### C VDTBH #### [facility] [address] [place] [address] Dr. Nathanael Freedman LACTATE/LACTIC ACIDon 2021 Lactate [Moles/Vol] 0.7 mmol/L Normal 0.4-1.9 [facility] Comment on above: Performed By: #### H STROPN, CMP, CRP #### [facility] [address] [address] [address] Nathanael Freedman LIVER PROFILEon 03-20-2022 Albumin [Mass/Vol] 3.8 g/dL Normal 3.4-5.0 [facility] Comment on above: Performed By: #### C VDTBH #### [facility] [address] [place] [address] Dr. Nathanael Freedman Albumin/Globulin [Mass ratio] 1.1 {ratio} Normal [facility] Comment on above: Performed By: #### C VDTBH #### [facility] [address] [place] [address] Dr. Nathanael Freedman ALP [Catalytic activity/Vol] 60 U/L Normal 46-116 [facility] Comment on above: Performed By: #### C VDTBH #### [facility] [address] [place] [address] Dr. Nathanael Freedman ALT [Catalytic activity/Vol] 29 U/L Normal 14-59 [facility] Comment on above: Performed By: #### C VDTBH #### [facility] [address] [place] [address] Dr. Nathanael Freedman AST [Catalytic activity/Vol] 19 U/L Normal 15-37 [facility] Comment on above: Performed By: #### C VDTBH #### [facility] [address] [place] [address] Dr. Nathanael Freedman BILI, CONJUGATED 0.1 mg/dL Normal 0.0-0.2 [facility] Comment on above: Performed By: #### C VDTBH #### [facility] [address] [place] [address] Dr. Nathanael Freedman Bilirubin [Mass/Vol] 0.6 mg/dL Normal 0.2-1.0 [facility] Comment on above: Performed By: #### C VDTBH #### [facility] [address] [place] [address] Dr. Nathanael Freedman Globulin (S) [Mass/Vol] 3.5 g/dL Normal [facility] Comment on above: Performed By: #### C VDTBH #### [facility] [address] [place] [address] Dr. Nathanael Freedman Protein [Mass/Vol] 7.3 g/dL Normal 6.4-8.2 [facility] Comment on above: Performed By: #### C VDTBH #### [facility] [address] [place] [address] Dr. Nathanael Freedman MYOGLOBINon 03-20-2022 STEFANIA 36 ng/mL Normal 9-82 [facility] Comment on above: Performed By: #### C VDTBH #### [facility] [address] [place] [address] Dr. Nathanael Freedman PROF CHEM 8 (BAS METB)on Anion gap [Moles/Vol] 13.5 mmol/L Normal [facility] Comment on above: Performed By: #### C VDTBH #### [facility] [address] [place] [address] Dr. Nathanael Freedman Calcium [Mass/Vol] 8.9 mg/dL Normal 8.5-10.1 [facility] Comment on above: Performed By: #### C VDTBH #### [facility] [address] [place] [address] Dr. Nathanael Freedman Chloride [Moles/Vol] 100 mmol/L Normal 98-107 [facility] Comment on above: Performed By: #### C VDTBH #### [facility] [address] [place] [address] Dr. Nathanael Freedman CO2 [Moles/Vol] 26.0 mmol/L Normal 21.0-32.0 [facility] Comment on above: Performed By: #### C VDTBH #### [facility] [address] [place] [address] Dr. Nathanael Freedman Creatinine [Mass/Vol] 0.94 mg/dL Normal 0.55-1.02 [facility] Comment on above: Performed By: #### C VDTBH #### [facility] [address] [place] [address] Dr. Nathanael Freedman EGFR-AF KUWAITI >60 Normal >=60 [facility] Comment on above: Performed By: #### C VDTBH #### [facility] [address] [place] [address] Dr. Nathanael Freedman EGFR-NON AF KUWAITI >60 Normal >=60 [facility] Comment on above: Performed By: #### C VDTBH #### [facility] [address] [place] [address] Dr. Nathanael Freedman Glucose [Mass/Vol] 116 mg/dL Critically high 74-106 [facility] Comment on above: Performed By: #### C VDTBH #### [facility] [address] [place] [address] Dr. Nathanael Freedman Potassium [Moles/Vol] 3.5 mmol/L Normal 3.5-5.1 [facility] Comment on above: Performed By: #### C VDTBH #### [facility] [address] [place] [address] Dr. Nathanael Freedman Sodium [Moles/Vol] 136 mmol/L Normal 136-145 [facility] Comment on above: Performed By: #### C VDTBH #### [facility] [address] [place] [address] Dr. Nathanael Freedman Urea nitrogen [Mass/Vol] 6.0 mg/dL Critically low 7.0-18.0 [facility] Comment on above: Performed By: #### C VDTBH #### [facility] [address] [place] [address] Dr. Nathanael Freedman Urea nitrogen/Creatinine [Mass ratio] 6.4 mg/mg Normal [facility] Comment on above: Performed By: #### C VDTBH #### [facility] [address] [place] [address] Dr. Nathanael Freedman [facility] 2021 SED RATE 26 mm/hr Critically high <=20 [facility] Comment on above: Performed By: #### I NFLUAB #### [facility] [address] [place] [address] Dr. Nathanael Freedman [facility]06 SARS-CoV-2 (COVID-19) RNA KIRTI+probe Ql (Unsp spec) Detected Critically abnormal NOT DETECTED [facility] Comment on above: Result Comment: This test is not yet approved or cleared by the [place] FDA. When there are no FDA-approved or cleared tests available, and other criteria are met, FDA can make tests available under an emergency access mechanism called an Emergency Use Authorization (EUA). The EUA for this test is supported by the Diagrammer And Seamer of Health and Human Service's declaration that circumstances exist to justify the emergency use of in vitro diagnostics for the detection and/or diagnosis of the virus that causes COVID-19. This EUA will remain in effect for the duration of the COVID-19 declaration justifying emergency of IVDs, unless it is terminated or revoked by the FDA (after which the test may no longer be used). Performed By: #### C VDTBH #### [facility] [address] [place] [address] Dr. Nathanael Freedman INFLUENZA A AND B AGon 03-19 [facility] SEE BELOW Normal [facility] Comment on above: Result Comment: Nega tive for Flu A protein angiten. Infection due to Flu A cannot be ruled out. Flu A angiten in the sample may be below the detection limit of the test. Performed By: #### I NFLUAB #### [facility] [address] [place], [place] [address] Dr. Nathanael Freedman INFLUBNEG SEE BELOW Normal [facility] Comment on above: Result Comment: Nega tive for Flu B protein antigen. Infection due to Flu B cannot be ruled out. Flu B antigen in the sample may be below the detection limit of the test. Performed By: #### I NFLUAB #### [facility] [address] [address] [address] Nathanael Freedman INFLUENZA A AG Negative Normal NEGATIVE SEE COMMENT [facility] Comment on above: Performed By: #### I NFLUAB #### [facility] [address] [place] [address] Dr. Nathanael Freedman INFLUENZA B AG Negative Normal NEGATIVE SEE COMMENT [facility] Comment on above: Performed By: #### I NFLUAB #### [facility] [address] [place] [address] Dr. Nathanael Freedman INTERNAL CONTROLS Within Normal Limits Normal Wi thin Normal Limits [facility] Comment on above: Performed By: #### I NFLUAB #### [facility] [address] [place] [address] Dr. Nathanael Freedman CBC AUTO DIFFon 02-27-2022 BASO # 0.1 103/ul Normal 0.0-0.1 [facility] Comment on above: Performed By: #### C VDTBH #### [facility] [address] [place] [address] Dr. Nathanael Freedman Basophils/100 WBC (Bld) 0.5 % Normal 0.2-2.0 [facility] Comment on above: Performed By: #### C VDTBH #### [facility] [address] [place] [address] Dr. Nathanael Freedman EO # 0.2 103/ul Normal 0.0-0.7 [facility] Comment on above: Performed By: #### C VDTBH #### [facility] [address] [place] [address] Dr. Nathanael Freedman Eosinophils/100 WBC (Bld) 2.1 % Normal 0.9-7.0 [facility] Comment on above: Performed By: #### C VDTBH #### [facility] [address] [place] [address] Dr. Nathanael Freedman Erythrocyte distribution width (RBC) [Ratio] 12.4 % Normal 11.0-15.0 [facility] Comment on above: Performed By: #### C VDTBH #### [facility] [address] [place] [address] Dr. Nathanael Freedman Hematocrit (Bld) [Volume fraction] 39.4 % Normal 36.0-48.0 [facility] Comment on above: Performed By: #### C VDTBH #### [facility] [address] [place] [address] Dr. Nathanael Freedman Hemoglobin (Bld) [Mass/Vol] 13.0 g/dL Normal 12.0-16.0 [facility] Comment on above: Performed By: #### C VDTBH #### [facility] [address] [place] [address] Dr. Nathanael Freedman IG # 0.04 10e3/ul Critically high 0.00-0.03 [facility] Comment on above: Performed By: #### C VDTBH #### [facility] [address] [place] [address] Dr. Nathanael Freedman IG % 0.4 % Normal 0.0-0.5 [facility] Comment on above: Performed By: #### C VDTBH #### [facility] [address] [place] [address] Dr. Nathanael Freedman LYMPH # 3.2 103/ul Normal 1.2-3.8 [facility] Comment on above: Performed By: #### C VDTBH #### [facility] [address] [place] [address] Dr. Nathanael Freedman Lymphocytes/100 WBC (Bld) 29.6 % Normal 20.5-60.0 [facility] Comment on above: Performed By: #### C VDTBH #### [facility] [address] [place] [address] Dr. Nathanael Freedman MANUAL DIFF REQ NO Normal [facility] Comment on above: Performed By: #### C VDTBH #### [facility] [address] [place] [address] Dr. Natahnael Freedman MCH (RBC) [Entitic mass] 28.5 pg Normal 26.7-34.0 [facility] Comment on above: Performed By: #### C VDTBH #### [facility] [address] [place] [address] Dr. Nathanael Freedman MCHC (RBC) [Mass/Vol] 33.0 g/dL Normal 29.9-35.2 [facility] Comment on above: Performed By: #### C VDTBH #### [facility] [address] [place] [address] Dr. Nathanael Freedman MCV (RBC) [Entitic vol] 86.4 fL Normal 81.0-99.0 [facility] Comment on above: Performed By: #### C VDTBH #### [facility] [address] [place] [address] Dr. Nathanael Freedman MONO # 0.6 103/ul Normal 0.3-0.8 [facility] Comment on above: Performed By: #### C VDTBH #### [facility] [address] [place] [address] Dr. Nathanael Freedman Monocytes/100 WBC (Bld) 5.9 % Normal 1.7-12.0 [facility] Comment on above: Performed By: #### C VDTBH #### [facility] [address] [place] [address] Dr. Nathanael Freedman NEUT # 6.7 103/ul Critically high 1.4-6.5 [facility] Comment on above: Performed By: #### C VDTBH #### [facility] [address] [place] [address] Dr. Nathanael Freedman Neutrophils/100 WBC (Bld) 61.5 % Normal 43.0-75.0 [facility] Comment on above: Performed By: #### C VDTBH #### [facility] [address] [place] [address] Dr. Nathanael Freedman Platelet mean volume (Bld) [Entitic vol] 10.0 fL Normal 9.5-13.5 [facility] Comment on above: Performed By: #### C VDTBH #### [facility] [address] [place] [address] Dr. Nathanael Freedman PLT 282 103/ul Normal 150-450 [facility] Comment on above: Performed By: #### C VDTBH #### [facility] [address] [place], [place] [id number] Dr. Nathanael Freedman RBC 4.56 106/ul Normal 4.20-5.40 [facility] Comment on above: Performed By: #### C VDTBH #### [facility] [address] [address] [address] Nathanael Freedman WBC 10.9 103/ul Normal 4.0-11.0 [facility] Comment on above: Performed By: #### C VDTBH #### [facility] [address] [address] [address] Nathanael Freedman CRPon 02-27-2022 CRP 1.7 mg/dL Critically high <=1.0 [facility] Comment on above: Performed By: #### H STROPN, CMP, CRP #### [facility] [address] [place] [address] HEAD WO CONon 02-27-2022 CT HEAD WO CON EXAMINATION: CT HEAD WO CON HISTORY: WEAKNESS COMPARISON: None. TECHNIQUE: CT examination of the head without IV contrast. Dose reduction techniques were achieved by using automated exposure control and/or adjustment of mA and/or kV according to patient size and/or use of iterative reconstruction technique. FINDINGS: The cerebral sulci and ventricles are normal in size and shape. The density of the cerebrum, brainstem, and cerebellum is unremarkable. There is no evidence of intracranial hemorrhage, mass, or midline shift. No extra-axial fluid collection is seen. The brainstem and cerebellum are normal in appearance. The visualized paranasal sinuses and mastoid air cells are clear. No skull abnormalities are identified. IMPRESSION: 1. No acute intracranial abnormality. Electronically authenticated by: January SILVESTRE Date: 2022-02-26 23:36 Normal [facility] LACTATE/LACTIC ACIDon 2021 Lactate [Moles/Vol] 0.8 mmol/L Normal 0.4-1.9 [facility] Comment on above: Performed By: #### I NFLUAB #### [facility] [address] [place] [address] Dr. Nathanael Freedman PROF 14(COMP METB)on Albumin [Mass/Vol] 4.0 g/dL Normal 3.4-5.0 [facility] Comment on above: Performed By: #### H STROPN, CMP, CRP #### [facility] [address] [address] [address] Nathanael Freedman Albumin/Globulin [Mass ratio] 1.0 {ratio} Normal [facility] Comment on above: Performed By: #### H STROPN, CMP, CRP #### [facility] [address] [address] [address] Nathanael Freedman ALP [Catalytic activity/Vol] 68 U/L Normal 46-116 [facility] Comment on above: Performed By: #### H STROPN, CMP, CRP #### [facility] [address] [address] [address] Nathanael Freedman ALT [Catalytic activity/Vol] 28 U/L Normal 14-59 [facility] Comment on above: Performed By: #### H STROPN, CMP, CRP #### [facility] [address] [address] [address] Nathanael Freedman Anion gap [Moles/Vol] 10.8 mmol/L Normal [facility] Comment on above: Performed By: #### H STROPN, CMP, CRP #### [facility] [address] [address] [address] Nathanael Freedman AST [Catalytic activity/Vol] 13 U/L Critically low 15-37 [facility] Comment on above: Performed By: #### H STROPN, CMP, CRP #### [facility] [address] [address] [address] Nathanael Freedman Bilirubin [Mass/Vol] 0.4 mg/dL Normal 0.2-1.0 [facility] Comment on above: Performed By: #### H STROPN, CMP, CRP #### [facility] [address] [place] [address] Dr. Nathanael Freedman Calcium [Mass/Vol] 9.4 mg/dL Normal 8.5-10.1 [facility] Comment on above: Performed By: #### H STROPN, CMP, CRP #### [facility] [address] [place] [address] Dr. Nathanael Freedman Chloride [Moles/Vol] 103 mmol/L Normal 98-107 [facility] Comment on above: Performed By: #### H STROPN, CMP, CRP #### [facility] [address] [address] [address] Nathanael Freedman CO2 [Moles/Vol] 27.7 mmol/L Normal 21.0-32.0 [facility] Comment on above: Performed By: #### H STROPN, CMP, CRP #### [facility] [address] [address] [address] Nathanael Freedman Creatinine [Mass/Vol] 0.96 mg/dL Normal 0.55-1.02 [facility] Comment on above: Performed By: #### H STROPN, CMP, CRP #### [facility] [address] [address] [address] Nathanael Freedman EGFR-AF KUWAITI >60 Normal >=60 [facility] Comment on above: Performed By: #### H STROPN, CMP, CRP #### [facility] [address] [address] [address] Nathanael Freedman EGFR-NON AF KUWAITI >60 Normal >=60 [facility] Comment on above: Performed By: #### H STROPN, CMP, CRP #### [facility] [address] [address] [address] Nathanael Freedman Globulin (S) [Mass/Vol] 3.9 g/dL Normal [facility] Comment on above: Performed By: #### H STROPN, CMP, CRP #### [facility] [address] [address] [address] Nathanael Freedman Glucose [Mass/Vol] 124 mg/dL Critically high 74-106 [facility] Comment on above: Performed By: #### H STROPN, CMP, CRP #### [facility] [address] [address] [address] Nathanael Freedman Potassium [Moles/Vol] 3.5 mmol/L Normal 3.5-5.1 [facility] Comment on above: Performed By: #### H STROPN, CMP, CRP #### [facility] [address] [address] [address] Nathanael Freedman Protein [Mass/Vol] 7.9 g/dL Normal 6.4-8.2 [facility] Comment on above: Performed By: #### H STROPN, CMP, CRP #### [facility] [address] [address] [address] Nathanael Freedman Sodium [Moles/Vol] 138 mmol/L Normal 136-145 [facility] Comment on above: Performed By: #### H STROPN, CMP, CRP #### [facility] [address] [address] [address] Nathanael Freedman Urea nitrogen [Mass/Vol] 9.0 mg/dL Normal 7.0-18.0 [facility] Comment on above: Performed By: #### H STROPN, CMP, CRP #### [facility] [address] [address] [address] Nathanael Freedman Urea nitrogen/Creatinine [Mass ratio] 9.4 mg/mg Normal [facility] Comment on above: Performed By: #### H STROPN, CMP, CRP #### [facility] [address] [address] [address] Nathanael Freedman SED RATE [facility] 2021 SED RATE 27 mm/hr Critically high <=20 [facility] Comment on above: Performed By: #### I NFLUAB #### [facility] [address] [address] [address] Nathanael Freedman TROPONIN, HIGH SENSITIVITYon 02-27-2022 HSTROP 2.9 pg/mL Critically low 4.0-51.3 [facility] Comment on above: Result Comment: CUT- OFF POINTS HAVE BEEN ESTABLISHED BASED ON THE FOURTH UNIVERSAL DEFINITIONS OF MYOCARDIAL INFARCTION. THE UPPER REFERENCE LIMIT (URL) OF TROPONIN, DEFINED THE 99TH PERCENTILE OF cTnI DISTRIBUTION IN A REFERENCE POPULATION, HAS BEEN CONFIRMED THE DECISION THRESHOLD FOR DC DIAGNOSIS. Performed By: #### H STROPN, CMP, CRP #### [facility] [address] [address] [address] Nathanael Freedman XR Chest 2 Views*on 02-12-20 22 XR Chest 2 Views* HISTORY: Right-sided chest pain. Recent pleural effusion. COMPARISON: Chest x-rays 11/05/2018 TECHNIQUE: Frontal and lateral views of the chest FINDINGS: The cardiomediastinal silhouette is within normal limits. No pneumothorax, pleural effusion, or consolidation. No acute osseous abnormality. IMPRESSION: No radiographic evidence of acute intrathoracic process. Report reported and signed by Elias Melvin on 02/12/2022 1355 Normal [facility] Urine 10 SGon 11-07-2021 Albumin DL <= 20 mg/L (U) [Mass/Vol] Negative [facility] pH (U) 6.0 [pH] [facility] Urine 10 SG Negative [facility] Urine 10 SG 1.025 [facility] Urine 10 SG 0.2 [facility] Other CELIAC DISEASE ABSon 017 ENDO AB IGA Negative Normal Negative [facility] Comment on above: Performed By: #### L CELIACABS ####[facility] [id number] [place] [address] GLIADIN AB IGA 6 units Normal 0-19 [facility] Comment on above: Result Comment: Nega tive 0 - 19 Weak Positive 20 - 30 Moderate to Strong Positive >30 Performed By: #### L CELIACABS ####[facility] [id number] [place] [address] GLIADIN AB IGG 3 units Normal 0-19 [facility] Comment on above: Result Comment: Nega tive 0 - 19 Weak Positive 20 - 30 Moderate to Strong Positive >30 Performed By: #### L CELIACABS ####[facility] [id number] [place] [address] IgA 169 mg/dL Normal 87-352 [facility] Comment on above: Result Comment: Perf ormed At: [facility] [id number] [place], [place] [id number] Vincent [id number] Performed By: #### L CELIACABS ####[facility] [id number] [place] [address] tTG IGA <2 Normal 0-3 [facility] Comment on above: Result Comment: Nega tive 0 - 3 Weak Positive 4 - 10 Positive >10 Tissue Transglutaminase (tTG) has been identified as the endomysial antigen. Studies have demonstr- ated that endomysial IgA antibodies have over 99% specificity for gluten sensitive enteropathy. Performed By: #### L CELIACABS ####[facility] [id number] [place] [address] tTG IGG <2 Normal 0-5 [facility] Comment on above: Result Comment: Nega tive 0 - 5 Weak Positive 6 - 9 Positive >9 Performed By: #### L CELIACABS ####[facility] [id number] [place] [address] C-REACTIVE PROTEINon 017 C reactive protein (CRP) 15.90 mg/L High [facility] Comment on above: Order Comment: Is pa tient fasting? NO Result Comment: Card iovascular CRP Risk Stratification Low < 1.00 mg/L Average 1.00 - 3.00 mg/L High > 3.00 mg/LAbsence of acute inflammation < 3.0 mg/LAcute inflammation >10.0 mg/L Performed By: #### L CMP, LGFRP, LCARDIOCRP, [id number] ####[facility] Uonwphhlfa[address] [place] [address] CBC AUTOon 09-10-2017 Erythrocyte distribution width Auto Ratio (RBC) 12.7 % Normal 11.5-14.5 [facility] Comment on above: Performed By: #### L CBC, LWSR ####[facility] A[address]udayb25[address] [place] [address] Erythrocytes (RBC) 4.61 10*6/uL Normal 3.5-5.5 [facility] Comment on above: Performed By: #### L CBC, LWSR ####[facility] [address]fjehejlj[address] [place] [address] Hematocrit (HCT) 39.2 % Normal 36.0-48.0 [facility] Comment on above: Performed By: #### L CBC, LWSR ####[facility] [address]wmpdkdrgx04[address] [place] [address] Hemoglobin mass conc (Bld) 13.5 g/dL Normal 12.0-15.0 [facility] Comment on above: Performed By: #### L CBC, LWSR ####[facility] [address]xqyhxufo[address] [place] [address] MCH 29.3 pg Normal 25.4-34.6 [facility] Comment on above: Performed By: #### L CBC, LWSR ####[facility] [address]jinojgtlq739[address] [place] [address] MCHC mass conc (RBC) 34.4 g/dL Normal 30.0-36.0 [facility] Comment on above: Performed By: #### L CBC, LWSR ####[facility] [address] [place] [address] MCV 85.0 fL Normal 79.0-98.0 [facility] Comment on above: Performed By: #### L CBC, LWSR ####[facility] [address] [place] [address] Platelet mean volume (PMV) 10.1 fL Normal 8.4-11.9 [facility] Comment on above: Performed By: #### L CBC, LWSR ####[facility] [address] [place] [address] Platelets 256 10*3/uL Normal 140-440 [facility] Comment on above: Performed By: #### L CBC, LWSR ####[facility] [address] [place] [address] WBC (Leukocytes) 10.7 10*3/uL Normal 3.9-11.0 [facility] Comment on above: Performed By: #### L CBC, LWSR ####[facility] Xzk[address]akd334[address] [place] [address] COMP METABOLIC PANELon 09-10 Alanine aminotransferase (ALT) 14 U/L Normal 7-45 [facility] Comment on above: Order Comment: Is pa tient fasting? NO Performed By: #### L CMP, LGFRP, LCARDIOCRP, [id number] ####[facility] Nudppirnvg[address] [place] [address] Albumin 4.3 g/dL Normal 3.4-5.0 [facility] Comment on above: Order Comment: Is pa tient fasting? NO Performed By: #### L CMP, LGFRP, LCARDIOCRP, [id number] ####[facility] Vtwlanavuc37[address] [place] [address] ALK PHOS TOTAL 49 U/L Normal 45-117 [facility] Comment on above: Order Comment: Is pa tient fasting? NO Performed By: #### L CMP, LGFRP, LCARDIOCRP, [id number] ####[facility] [address]iafuoqgwv84798 [place] [address] Aspartate aminotransferase (AST) 14 U/L Normal 13-39 [facility] Comment on above: Order Comment: Is pa tient fasting? NO Performed By: #### L CMP, LGFRP, LCARDIOCRP, [id number] ####[facility] Licmxcibyd[address] [place] [address] BILI TOTAL 0.4 mg/dL Normal 0-1.2 [facility] Comment on above: Order Comment: Is pa tient fasting? NO Performed By: #### L CMP, LGFRP, LCARDIOCRP, [id number] ####[facility] [address]bs[address]qf938[address] [place] [address] Calcium 9.6 mg/dL Normal 8.6-10.3 [facility] Comment on above: Order Comment: Is pa tient fasting? NO Performed By: #### L CMP, LGFRP, LCARDIOCRP, [id number] ####[facility] Eu[address]wry[address]38[address] [place] [address] Chloride 103 mmol/L Normal 98-107 [facility] Comment on above: Order Comment: Is pa tient fasting? NO Performed By: #### L CMP, LGFRP, LCARDIOCRP, [id number] ####[facility] [address]abw917[address] [place] [address] CO2 29 mmol/L Normal 21-32 [facility] Comment on above: Order Comment: Is pa tient fasting? NO Performed By: #### L CMP, LGFRP, LCARDIOCRP, [id number] ####[facility] [address]ihfqnpoys[address] [place] [address] Creatinine 0.70 mg/dL Normal 0.5-1.05 [facility] Comment on above: Order Comment: Is pa tient fasting? NO Performed By: #### L CMP, LGFRP, LCARDIOCRP, [id number] ####[facility] [address]zuq[address] [place] [address] Glucose mass conc 108 mg/dL High 74-99 [facility] Comment on above: Order Comment: Is pa tient fasting? NO Performed By: #### L CMP, LGFRP, LCARDIOCRP, [id number] ####[facility] Dkgpbrgssh60408 [place] [address] Potassium molar conc 3.8 mmol/L Normal 3.5-5.3 [facility] Comment on above: Order Comment: Is pa tient fasting? NO Performed By: #### L CMP, LGFRP, LCARDIOCRP, [id number] ####[facility] Igewirzaky[address] [place] [address] Protein 7.1 g/dL Normal 6.4-8.2 [facility] Comment on above: Order Comment: Is pa tient fasting? NO Performed By: #### L CMP, LGFRP, LCARDIOCRP, [id number] ####[facility] Xplrepxetc53736 [place] [address] Sodium 139 mmol/L Normal 136-145 [facility] Comment on above: Order Comment: Is pa tient fasting? NO Performed By: #### L CMP, LGFRP, LCARDIOCRP, [id number] ####[facility] Iduuqocupd32096 [place] [address] Urea nitrogen 8 mg/dL Normal 6-23 [facility] Comment on above: Order Comment: Is pa tient fasting? NO Performed By: #### L CMP, LGFRP, LCARDIOCRP, [id number] ####[facility] Jmxwtqptcc21741 [place] [address] GLOMERULAR FILTRATION RATE E STon 09-10-2017 eGFR (non-black) mL/min/{1.73_m2} Normal > 60 [facility] Comment on above: Order Comment: Is pa tient fasting? NO Performed By: #### L CMP, LGFRP, LCARDIOCRP, [id number] ####[facility] Oezyfxestd18665 [place] [address] IF AMER > 90 Normal > 60 [facility] Comment on above: Order Comment: Is pa tient fasting? NO Result Comment: Effe ctive 03/01/15:CKD-EPI equation / based on IDMS traceable creatinine.Continue to use the CREAT CLR-DOSE (Cockgroft-Gault)value for determining medication dose. Performed By: #### L CMP, LGFRP, LCARDIOCRP, [id number] ####[facility] Tvx[address]hwnpg88[address] [place] [address] SED RATE MANUALon 09-10-2017 WSR/MOD 26 mm/hr High 0-20 [facility] Comment on above: Performed By: #### L CBC, LWSR ####[facility] [address]plut[address] [place] [address] TSH (3RDGEN)on 09-10-2017 Thyroid stimulating hormone (TSH) 1.28 m[IU]/L Normal 0.44-3.98 [facility] Comment on above: Order Comment: Is pa tient fasting? NO Performed By: #### L CMP, LGFRP, LCARDIOCRP, [id number] ####[facility] Soebdepiry[address]147 [place] [address] Vital Signs Date Time Vital Sign Value Performing Clinician Allison levin 03-02-2024 15:10040 Body height 149.86 cm [facility] 03-02-2024 15:100400 Body mass index (BMI) [Ratio] 31.8 kg/m2 [facility] 03-02-2024 15:10 Body weight 71.66 kg [facility] 03-02-2024 15:100400 Diastolic blood pressure 82 mm[Hg] [facility] 03-02-2024 15:10-0400 Heart rate 94 /min [facility] 03-02-2024 15:10-0400 Respiratory rate 16 /min [facility] 03-02-2024 15:10-0400 SaO2% (BldA) [Mass fraction] 98 % [facility] 03-02-2024 15:10-0400 Systolic blood pressure 122 mm[Hg] [facility] 01-28-2024 09:51-0400 Body height 149.86 cm [facility] 01-28-2024 09:51-0400 Body mass index (BMI) [Ratio] 32.5 kg/m2 [facility] 01-28-2024 09:51-0400 Body weight 73.02 kg [facility] 01-28-2024 09:51-0400 Diastolic blood pressure 80 mm[Hg] [facility] 01-28-2024 09:51-0400 Heart rate 84 /min [facility] 01-28-2024 09:51-0400 Respiratory rate 16 /min [facility] 01-28-2024 09:51-0400 SaO2% (BldA) [Mass fraction] 98 % [facility] 01-28-2024 09:51-0400 Systolic blood pressure 116 mm[Hg] [facility] 12-26-2023 14:45-0400 Diastolic blood pressure 84 mm[Hg] Aly Castellanos [facility] 12-26-2023 14:45-0400 Heart rate 101 /min Aly Castellanos [facility] 12-26-2023 14:45-0400 SaO2% (BldA) [Mass fraction] 97 % Aly Castellanos [facility] 12-26-2023 14:45-0400 Systolic blood pressure 132 mm[Hg] Aly Castellanos [facility] 11-28-2023 11:26-0500 Body height 149.86 cm DO Micheal [employer] Work Phone: [facility] 11-28-2023 11:26-0500 Body mass index (BMI) [Ratio] 30.9 kg/m2 DO Michealflavio Tovars Work Phone: [facility] 11-28-2023 11:26-0500 Body weight 69.39 kg DO Michealflavio Ocasio Work Phone: [facility] 11-28-2023 11:26-0500 Diastolic blood pressure 98 mm[Hg] DO Michealflavio Tovars Work Phone: [facility] 11-28-2023 11:26-0500 Heart rate 87 /min DO Micheal Tovars Work Phone: [facility] 11-28-2023 11:26-0500 Respiratory rate 16 /min DO Micheal Ocasio Work Phone: [facility] 11-28-2023 11:26-0500 SaO2% (BldA) [Mass fraction] 97 % DO Micheal Ocasio Work Phone: [facility] 11-28-2023 11:26-0500 Systolic blood pressure 142 mm[Hg] DO Micheal Ocasio Work Phone: [facility] 10-30-2023 16:12-0500 Blood Pressure Location Aly Castellanos [facility] 10-30-2023 16:12-0500 Diastolic blood pressure 79 mm[Hg] Aly Castellanos [facility] 10-30-2023 16:12-0500 Heart rate 80 /min Aly Castellanos [facility] 10-30-2023 16:12-0500 SaO2% (BldA) [Mass fraction] 97 % Aly Castellanos [facility] 10-30-2023 16:12-0500 Systolic blood pressure 116 mm[Hg] Aly Castellanos [facility] 10-09-2023 15:45-0500 Body height 149.86 cm Micheal Ocasio Other [facility] 10-09-2023 15:45-0500 Body mass index (BMI) [Ratio] 31.71 kg/m2 Micheal Ocasio Other [facility] 10-09-2023 15:45-0500 Body weight 71.22 kg Micheal Ocasio Other [facility] 10-09-2023 15:45-0500 Body weight 71.21 kg DO Michealflavio Ocasio Work Phone: [facility] 10-09-2023 15:45-0500 Diastolic blood pressure 80 mm[Hg] Micheal Ocasio Other [facility] 10-09-2023 15:45-0500 Respiratory rate 16 /min Micheal Ocasio Other [facility] 10-09-2023 15:45-0500 SaO2% (BldA) [Mass fraction] 99 % Micheal Ocasio Other [facility] 10-09-2023 15:45-0500 Systolic blood pressure 124 mm[Hg] Micheal Ocasio Other [facility] 09-05-2023 09:45-0500 Body height 149.86 cm Micheal Ocasio Other [facility] 09-05-2023 09:45-0500 Body mass index (BMI) [Ratio] 30.54 kg/m2 Micheal Ocasio Other [facility] 09-05-2023 09:45-0500 Body weight 68.58 kg Micheal Ocasio Other [facility] 09-05-2023 09:45-0500 Diastolic blood pressure 88 mm[Hg] Micheal Ocasio Other [facility] 09-05-2023 09:45-0500 Respiratory rate 18 /min Micheal Ocasio Other [facility] 09-05-2023 09:45-0500 SaO2% (BldA) [Mass fraction] 97 % Micheal Ocasio Other [facility] Other 09-05-2023 09:45-0500 Systolic blood pressure 130 mm[Hg] Micheal Ocasio Other [facility] 07-24-2023 14:45-0400 Body height 149.86 cm Micheal Ocasio Other [facility] Other 07-24-2023 14:45-0400 Body mass index (BMI) [Ratio] 29.69 kg/m2 Micheal Ocasio Other [facility] 07-24-2023 14:45-0400 Body weight 66.68 kg Micheal Ocasio Other [facility] 07-24-2023 14:45-0400 Diastolic blood pressure 80 mm[Hg] Micheal Ocasio Other [facility] Other 07-24-2023 14:45-0400 Respiratory rate 18 /min Micheal Ocasio Other [facility] 07-24-2023 14:45-0400 SaO2% (BldA) [Mass fraction] 99 % Micheal Ocasio Other [facility] 07-24-2023 14:45-0400 Systolic blood pressure 125 mm[Hg] Micheal Ocasio Other [facility] Other 06-16-2023 08:30-0400 Body height 149.86 cm Micheal Ocasio Other [facility] Other 06-16-2023 08:30-0400 Body mass index (BMI) [Ratio] 29.49 kg/m2 Micheal Ocasio Other [facility] 06-16-2023 08:30-0400 Body weight 66.23 kg Micheal Ocasio Other [facility] Other 06-16-2023 08:30-0400 Diastolic blood pressure 96 mm[Hg] Micheal Ocasio Other [facility] Other 06-16-2023 08:30-0400 Respiratory rate 18 /min Micheal Ocasio Other [facility] Other 06-16-2023 08:30-0400 SaO2% (BldA) [Mass fraction] 98 % Micheal Ocasio Other [facility] Other 06-16-2023 08:30-0400 Systolic blood pressure 154 mm[Hg] Micheal Ocasio Other [facility] Other 02-07-2023 10:30-0400 Body height 149.86 cm Micheal Ocasio Other [facility] Other 02-07-2023 10:30-0400 Body mass index (BMI) [Ratio] 30.7 kg/m2 Micheal Ocasio Other [facility] 02-07-2023 10:30-0400 Body weight 68.95 kg Micheal Ocasio Other [facility] 02-07-2023 10:30-0400 Diastolic blood pressure 96 mm[Hg] Micheal Ocasio Other [facility] 02-07-2023 10:30-0400 Respiratory rate 16 /min Micheal Ocasio Other [facility] 02-07-2023 10:30-0400 SaO2% (BldA) [Mass fraction] 94 % Micheal Ocasio Other [facility] 02-07-2023 10:30-0400 Systolic blood pressure 156 mm[Hg] Micheal Ocasio Other [place] [facility] Other 02-04-2023 20:36-0400 Diastolic blood pressure 93 mm[Hg] Kaylinn Dokken [facility] 02-04-2023 20:36-0400 Heart rate 72 /min Kassandraylinn Dokken [facility] 02-04-2023 20:36-0400 Mean blood pressure 115 mm[Hg] Kaylinn Dokken [facility] 02-04-2023 20:36-0400 Respiratory rate 18 /min Kaylinn Dokken [facility] 02-04-2023 20:36-0400 SaO2% (BldA) [Mass fraction] 96 % Kaylinn Dokken [facility] 02-04-2023 20:36-0400 Systolic blood pressure 160 mm[Hg] Kaylinn Dokken [facility] 02-04-2023 20:12-0400 Diastolic blood pressure 104 mm[Hg] Kaylinn Dokken [facility] 02-04-2023 20:12-0400 Heart rate 78 /min Kaylinn Dokken [facility] 02-04-2023 20:12-0400 Mean blood pressure 126 mm[Hg] Kaylinn Dokken [facility] 02-04-2023 20:12-0400 SaO2% (BldA) [Mass fraction] 99 % Kaylinn Dokken [facility] 02-04-2023 20:12-0400 Systolic blood pressure 169 mm[Hg] Kaylinn Dokken [facility] 02-04-2023 20:00-0400 Hourly Rounding Kaylinn Dokken [facility] 02-04-2023 20:00-0400 Promise to Return Kaylinn Dokken [facility] 02-04-2023 19:00-0400 Hourly Rounding Kaylinn Dokken [facility] 02-04-2023 19:00-0400 Promise to Return Kaylinn Dokken [facility] 02-04-2023 18:53-0400 Body temperature 97.88 [degF] Kaylinn Dokken [facility] 02-04-2023 18:53-0400 Diastolic blood pressure 94 mm[Hg] Kaylinn Dokken [facility] 02-04-2023 18:53-0400 Heart rate 91 /min Kaylinn Dokken [facility] 02-04-2023 18:53-0400 Respiratory rate 18 /min Gila Beasley [facility] 02-04-2023 18:53-0400 SaO2% (BldA) [Mass fraction] 96 % Gila Beasley [facility] 02-04-2023 18:53-0400 Systolic blood pressure 147 mm[Hg] Gila Beasley [facility] 01-17-2023 09:15-0400 Body height 149.86 cm Micheal Ocasio Other [facility] Other 01-17-2023 09:15-0400 Body mass index (BMI) [Ratio] 31.71 kg/m2 Micheal Ocasio Other [facility] 01-17-2023 09:15-0400 Body weight 71.22 kg Micheal Ocasio Other [facility] 01-17-2023 09:15-0400 Diastolic blood pressure 90 mm[Hg] Micheal Ocasio Other [facility] 01-17-2023 09:15-0400 Respiratory rate 18 /min Micheal Ocasio Other [facility] 01-17-2023 09:15-0400 SaO2% (BldA) [Mass fraction] 98 % Micheal Ocasio Other [facility] 01-17-2023 09:15-0400 Systolic blood pressure 142 mm[Hg] Micheal Ocasio Other [facility] Other 12-27-2022 11:30-0400 Body height 149.86 cm Micheal Ocasio Other [facility] Other 12-27-2022 11:30-0400 Body mass index (BMI) [Ratio] 32.92 kg/m2 Micheal Dash Other [facility] Other 12-27-2022 11:30-0400 Body weight 73.94 kg Micheal Dash Other [facility] Other 12-27-2022 11:30-0400 Diastolic blood pressure 85 mm[Hg] Michealflavio Ocasio Other [facility] Other 12-27-2022 11:30-0400 Respiratory rate 18 /min Micheal [employer] Other [facility] Other 12-27-2022 11:30-0400 SaO2% (BldA) [Mass fraction] 99 % Micheal [employer] Other [facility] Other 12-27-2022 11:30-0400 Systolic blood pressure 132 mm[Hg] Micheal Dash Other [facility] Other 12-16-2022 11:00-0400 Body height 149.86 cm Macey Licona Other [facility] Other 12-16-2022 11:00-0400 Body mass index (BMI) [Ratio] 33.73 kg/m2 Macey Licona Other [facility] Other 12-16-2022 11:00-0400 Body temperature 97.1 [degF] Macey Licona Other [facility] Other 12-16-2022 11:00-0400 Body weight 75.75 kg Macey Licona Other [facility] Other 12-16-2022 11:00-0400 Respiratory rate 18 /min Macey Licona Other [facility] Other 12-16-2022 11:00-0400 SaO2% (BldA) [Mass fraction] 96 % Macey Licona Other [facility] Other 12-13-2022 09:30-0500 Body height 149.86 cm Micheal Ocasio Other [facility] Other 12-13-2022 09:30-0500 Body mass index (BMI) [Ratio] 33.73 kg/m2 Micheal Ocasio Other [facility] Other 12-13-2022 09:30-0500 Body weight 75.75 kg Micheal Ocasio Other [facility] Other 12-13-2022 09:30-0500 Diastolic blood pressure 86 mm[Hg] Micheal Ocasio Other [facility] Other 12-13-2022 09:30-0500 Respiratory rate 18 /min Micheal Ocasio Other [facility] Other 12-13-2022 09:30-0500 SaO2% (BldA) [Mass fraction] 97 % Micheal Ocasio Other [facility] Other 12-13-2022 09:30-0500 Systolic blood pressure 132 mm[Hg] Micheal Ocasio Other [facility] Other 10-04-2022 09:00-0500 Body height 149.86 cm Michealflavio [employer] Other [facility] Other 10-04-2022 09:00-0500 Body mass index (BMI) [Ratio] 33.52 kg/m2 Micheal Dash Other [facility] Other 10-04-2022 09:00-0500 Body weight 75.3 kg Micheal Dash Other [facility] Other 10-04-2022 09:00-0500 Diastolic blood pressure 90 mm[Hg] Micheal Ocasio Other [facility] Other 10-04-2022 09:00-0500 Respiratory rate 16 /min Micheal Ocasio Other [facility] Other 10-04-2022 09:00-0500 SaO2% (BldA) [Mass fraction] 96 % Micheal Ocasio Other [facility] Other 10-04-2022 09:00-0500 Systolic blood pressure 140 mm[Hg] Micheal Ocasio Other [facility] Other 09-13-2022 08:25-0500 Diastolic blood pressure 103 mm[Hg] DO Micheal Kuns Work Phone: [facility] 09-13-2022 08:25-0500 Heart rate 71 /min DO Micheal Kuns Work Phone: [facility] 09-13-2022 08:25-0500 Respiratory rate 16 /min DO Micheal Kuns Work Phone: [facility] 09-13-2022 08:25-0500 SaO2% (BldA) [Mass fraction] 96 % DO Micheal Kuns Work Phone: [facility] 09-13-2022 08:25-0500 Systolic blood pressure 146 mm[Hg] DO Micheal Ocasio Work Phone: [facility] 09-13-2022 06:55-0500 Body height 148.59 cm DO Micheal Ocasio Work Phone: [facility] 09-13-2022 06:55-0500 Body mass index (BMI) [Ratio] 34.9 kg/m2 DO Micheal Ocasio Work Phone: [facility] 09-13-2022 06:55-0500 Body weight 77.11 kg DO Micheal Ocasio Work Phone: [facility] 09-13-2022 06:00-0500 Body temperature 97.9 [degF] DO Micheal Ocasio Work Phone: [facility] 07-24-2022 08:15-0400 Body height 149.86 cm Micheal Ocasio Other [facility] [employer] Other 07-24-2022 08:15-0400 Body mass index (BMI) [Ratio] 34.53 kg/m2 Micheal Ocasio Other [facility] Other 07-24-2022 08:15-0400 Body weight 77.57 kg Micheal Ocasio Other [facility] Other 07-24-2022 08:15-0400 Diastolic blood pressure 90 mm[Hg] Micheal Ocasio Other [facility] Other 07-24-2022 08:15-0400 Respiratory rate 18 /min Micheal Ocasio Other [facility] Other 07-24-2022 08:15-0400 SaO2% (BldA) [Mass fraction] 98 % Micheal Ocasio Other [facility] Other 07-24-2022 08:15-0400 Systolic blood pressure 136 mm[Hg] Micheal Ocasio Other [facility] Other 05-23-2022 13:45-0400 Body height 149.86 cm Michealflavio [employer] Other [facility] Other 05-23-2022 13:45-0400 Body mass index (BMI) [Ratio] 34.7 kg/m2 Michealflavio [employer] Other [facility] 05-23-2022 13:45-0400 Body weight 77.93 kg Micheal Dash Other [facility] Other 05-23-2022 13:45-0400 Diastolic blood pressure 84 mm[Hg] Michealflavio Ocasio Other [facility] 05-23-2022 13:45-0400 Respiratory rate 16 /min Micheal Ocasio Other [facility] 05-23-2022 13:45-0400 SaO2% (BldA) [Mass fraction] 98 % Michealflavio Ocasio Other [facility] Other 05-23-2022 13:45-0400 Systolic blood pressure 136 mm[Hg] Micheal Ocasio Other [facility] Other 05-14-2022 14:15-0400 Body height 149.86 cm Micheal Ocasio Other [facility] Other 05-14-2022 14:15-0400 Body mass index (BMI) [Ratio] 34.13 kg/m2 Micheal Ocasio Other [facility] Other 05-14-2022 14:15-0400 Body weight 76.66 kg Micheal Ocasio Other [facility] Other 05-14-2022 14:15-0400 Diastolic blood pressure 80 mm[Hg] Micheal Ocasio Other [facility] Other 05-14-2022 14:15-0400 Respiratory rate 16 /min Micheal Tovaralix Other [facility] Other 05-14-2022 14:15-0400 SaO2% (BldA) [Mass fraction] 96 % Michealflavio Tovaralix Other [facility] Other 05-14-2022 14:15-0400 Systolic blood pressure 134 mm[Hg] Micheal Ocasio Other [facility] Other 05-06-2022 15:00-0400 Body height 149.86 cm Micheal Tovaralix Other [facility] Other 05-06-2022 15:00-0400 Body mass index (BMI) [Ratio] 32.92 kg/m2 Micheal Dash Other [facility] Other 05-06-2022 15:00-0400 Body weight 73.94 kg Micheal Dash Other [facility] Other 05-06-2022 15:00-0400 Diastolic blood pressure 94 mm[Hg] Micheal Ocasio Other [facility] Other 05-06-2022 15:00-0400 Respiratory rate 16 /min Michealflavio Tov[facility]alix Other [facility] Other 05-06-2022 15:00-0400 SaO2% (BldA) [Mass fraction] 96 % Michealflavio Tovaralix Other [facility] Other 05-06-2022 15:00-0400 Systolic blood pressure 134 mm[Hg] Micheal Ocasio Other [facility] Other 02-05-2022 16:45-0400 Body height 149.86 cm Micheal Dash Other [facility] Other 02-05-2022 16:45-0400 Body mass index (BMI) [Ratio] 33.52 kg/m2 Micheal Ocasio Other [facility] Other 02-05-2022 16:45-0400 Body weight 75.3 kg Michealflavio Ocasio Other [facility] Other 02-05-2022 16:45-0400 Diastolic blood pressure 98 mm[Hg] Micheal Ocasio Other [facility] Other 02-05-2022 16:45-0400 Respiratory rate 16 /min Micheal Ocasio Other [facility] Other 02-05-2022 16:45-0400 SaO2% (BldA) [Mass fraction] 98 % Micheal Ocasio Other [facility] Other 02-05-2022 16:45-0400 Systolic blood pressure 162 mm[Hg] Micheal Ocasio Other [facility] Other 2021 14:45-0500 Body height 149.86 cm Micheal Ocasio Other [facility] Other 2021 14:45-0500 Body mass index (BMI) [Ratio] 33.73 kg/m2 Micheal Ocasio Other [facility] Other 2021 14:45-0500 Body weight 75.75 kg Micheal Ocasio Other [facility] Other 2021 14:45-0500 Diastolic blood pressure 90 mm[Hg] Micheal Ocasio Other [facility] Other 2021 14:45-0500 Respiratory rate 16 /min Micheal Ocasio Other [facility] Other 2021 14:45-0500 SaO2% (BldA) [Mass fraction] 98 % Micheal Ocasio Other [facility] Other 2021 14:45-0500 Systolic blood pressure 150 mm[Hg] Micheal Ocasio Other [facility] Other 11-07-2021 10:45-0500 Body height 149.86 cm Micheal Ocasio Other [facility] Other 11-07-2021 10:45-0500 Body mass index (BMI) [Ratio] 33.12 kg/m2 Micheal Ocasio Other [facility] Other 11-07-2021 10:45-0500 Body weight 74.39 kg Micheal Ocasio Other [facility] Other 11-07-2021 10:45-0500 Diastolic blood pressure 95 mm[Hg] Michealflavio Tovaralix Other [facility] Other 11-07-2021 10:45-0500 Respiratory rate 18 /min Micheal Dash Other [facility] Other 11-07-2021 10:45-0500 SaO2% (BldA) [Mass fraction] 98 % Micheal Ocasio Other [facility] Other 11-07-2021 10:45-0500 Systolic blood pressure 145 mm[Hg] Micheal Ocasio Other [facility] Other 09-22-2021 09:15-0500 Body height 149.86 cm Micheal Tovaralix Other [facility] Other 09-22-2021 09:15-0500 Body mass index (BMI) [Ratio] 33.52 kg/m2 Micheal Dash Other [facility] Other 09-22-2021 09:15-0500 Body weight 75.3 kg Micheal Ocasio Other [facility] Other 09-22-2021 09:15-0500 Diastolic blood pressure 92 mm[Hg] Micheal Ocasio Other [facility] Other 09-22-2021 09:15-0500 Respiratory rate 16 /min Micheal Ocasio Other [facility] Other 09-22-2021 09:15-0500 SaO2% (BldA) [Mass fraction] 98 % Micheal Kuns Other [facility] Other 09-22-2021 09:15-0500 Systolic blood pressure 134 mm[Hg] Micheal Ocasio Other [facility] Other Encounters Encounter Date Encounter Type Care Provider Facility Start: 04-07-2024 End: 04-07-2024 Patient encounter procedure DO Micheal Ocasio Work Phone: [facility] [place] Work Phone: Start: 04-07-2024 End: 04-07-2024 ambulatory DO Micheal Ocasio Work Phone: [facility] Work Phone: Start: 03-22-2024 Non-patient / Non-visit DO Micheal Ocasio Work Phone: [facility] [place] Work Phone: Start: 03-02-2024 End: 03-02-[address] [facility] Work Phone: Start: 03-02-2024 End: 03-02-2024 Patient encounter procedure [facility] [place] Work Phone: Start: 01-28-2024 End: 01-28-[address] [facility] Work Phone: Start: 01-28-2024 End: 01-28-2024 Patient encounter procedure [facility] [place] Work Phone: Start: 01-20-2024 Non-patient / Non-visit [facility] Work Phone: Start: 01-12-2024 End: 01-13-2024 ambulatory MAYCOL ISRAEL Not Available Start: 01-05-2024 End: 01-05-2024 ambulatory LAMONT MARTIN Not Available Start: 12-26-2023 End: 12-27-2023 ambulatory XXXX NONE [place] [place] Start: 12-26-2023 End: 12-26-2023 Patient encounter procedure Aly Castellanos [facility] Start: 12-16-2023 End: 12-17-2023 ambulatory Brown Machado SRUTHI [place] [place] Start: 12-16-2023 End: 12-16-2023 Patient encounter procedure Aly Castellanos [facility] Start: 12-16-2023 End: 12-16-2023 ambulatory LAMONT Jaison MARTIN Not Available Start: 12-08-2023 Non-patient / Non-visit [facility] [employer] Work Phone: Start: 11-28-2023 End: 11-28-2023 ambulatory DO Micheal Ocasio Work Phone: [facility] Work Phone: Start: 11-28-2023 End: 11-28-2023 Patient encounter procedure DO Micheal Ocasio Work Phone: [facility] [place] Work Phone: Start: 11-21-2023 End: 11-22-2023 ambulatory Aly Castellanos [place] [place] Start: 11-21-2023 End: 11-21-2023 Patient encounter procedure Aly Castellanos [facility] Start: 10-30-2023 End: 10-31-2023 ambulatory XXXX NONE [place] [place] Start: 10-30-2023 End: 10-30-2023 Patient encounter procedure Aly Castellanos [facility] Start: 10-16-2023 End: 10-16-2023 ambulatory Micheal Ocasio [facility] [employer] Other Start: 10-16-2023 Telephone encounter Micheal Ocasio [facility] [place] Start: 10-09-2023 End: 10-09-2023 ambulatory Micheal Ocasio Other [facility] Other Start: 10-09-2023 Office outpatient visit 15 minutes Micheal Ocasio [facility] [place] Start: 10-09-2023 End: 10-09-2023 Patient encounter procedure DO Micheal Ocasio Work Phone: [facility] [place] Work Phone: Start: 09-18-2023 End: 09-19-2023 ambulatory WILLIAM LIEBERMAN Not Available Start: 09-17-2023 End: 09-17-2023 ambulatory Michealflavio Ocasio Other [facility] Other Start: 09-17-2023 Telephone encounter Micheal Ocasio [facility] [place] Start: 09-05-2023 Office outpatient visit 25 minutes Michealflavio Ocasio [facility] [place] Start: 09-05-2023 End: 09-05-2023 Patient encounter procedure DO Micheal Ocasio Work Phone: [facility] [place] Work Phone: Start: 09-05-2023 End: 09-05-2023 ambulatory Micheal Guyalix [place] [employer] Other Start: 09-05-2023 End: 09-05-2023 Patient encounter procedure DO Micheal Ocasio Work Phone: [facility] [place] Work Phone: Start: 09-03-2023 End: 09-03-2023 ambulatory PACO GINNY Not Available Start: 09-02-2023 End: 09-02-2023 ambulatory Micheal Ocasio Other [facility] Other Start: 09-02-2023 Telephone encounter Michealflavio Tovaralix [facility] [place] Start: 08-25-2023 End: 08-25-2023 ambulatory LAMONT MARTIN Not Available Start: 07-31-2023 End: 07-31-2023 ambulatory Micheal Ocasio Other [facility] Other Start: 07-31-2023 Telephone encounter Michealflavio Ocasio [facility] [place] Start: 07-24-2023 End: 07-24-2023 ambulatory Micheal Ocasio Other [facility] Other Start: 07-24-2023 Office outpatient visit 15 minutes Micheal Dash [facility] [place] Start: 07-09-2023 End: 07-09-2023 ambulatory Michealflavio Ocasio Other [facility] Other Start: 07-09-2023 Telephone encounter Michealflavio Ocasio [facility] [place] Start: 07-07-2023 End: 07-07-2023 ambulatory Michealflavio Ocasio Other [facility] Other Start: 07-07-2023 Telephone encounter Micheal Ocasio [facility] [place] Start: 06-24-2023 End: 06-24-2023 ambulatory Michealflavio Ocasio Other [facility] Other Start: 06-24-2023 Telephone encounter Micheal Ocasio [facility] [place] Start: 06-18-2023 End: 06-18-2023 ambulatory DO Micheal Ocasio Work Phone: [facility] Work Phone: Start: 06-18-2023 End: 06-18-2023 Patient encounter procedure DO Micheal Ocasio Work Phone: [facility] [place] Work Phone: Start: 06-16-2023 End: 06-16-2023 ambulatory Micheal Ocasio Other [facility] Other Start: 06-16-2023 Office outpatient visit 25 minutes iMcheal Ocasio [facility] [place] Start: 06-12-2023 End: 06-12-2023 ambulatory Micheal Ocasio Other [facility] Other Start: 06-12-2023 Telephone encounter Micheal Ocasio [facility] [place] Start: 04-11-2023 End: 04-11-2023 ambulatory Michealflavio Ocasio Other [facility] Other Start: 04-11-2023 Telephone encounter Micheal Ocasio [facility] [place] Start: 02-10-2023 End: 02-10-2023 ambulatory Michealflavio Ocasio Other [facility] Other Start: 02-10-2023 Telephone encounter Micheal Ocasio [facility] [place] Start: 02-07-2023 End: 02-07-2023 ambulatory Micheal Ocasio Other [facility] Other Start: 02-07-2023 Office outpatient visit 15 minutes Micheal Ocasio [facility] [place] Start: 02-04-2023 End: 02-04-2023 Emergency department patient visit Gila Beasley [place] [place] Start: 02-04-2023 End: 02-04-2023 Emergency department patient visit Gila Beasley [facility] Start: 01-23-2023 End: 01-23-2023 ambulatory Micheal Ocasio Other [facility] Other Start: 01-23-2023 Telephone encounter Micheal Ocasio [facility] [place] Start: 01-17-2023 End: 01-17-2023 ambulatory Micheal Ocasio Other [facility] Other Start: 01-17-2023 Office outpatient visit 25 minutes Micheal Ocasio [facility] [place] Start: 01-12-2023 End: 01-12-[address] MICHEAL OCASIO Facility: Start: 12-31-2022 End: 12-31-2022 ambulatory Micheal Ocasio Other [facility] Other Start: 12-31-2022 Telephone encounter Micheal Ocasio [facility] [place] Start: 12-27-2022 End: 12-27-2022 ambulatory Micheal Ocasio Other [facility] Other Start: 12-27-2022 Office outpatient visit 15 minutes Micheal Ocasio [facility] [place] Start: 12-16-2022 End: 12-16-2022 ambulatory Macey Licona Other [facility] Other Start: 12-16-2022 Office outpatient visit 25 minutes Macey Licona [facility] Start: 12-16-2022 Telephone encounter Micheal Ocasio [facility] Start: 12-13-2022 End: 12-13-2022 ambulatory Micheal Ocasio Other [facility] Other Start: 12-13-2022 Office outpatient visit 25 minutes Micheal Ocasio [facility] [place] Start: 11-07-2022 End: 11-07-2022 ambulatory Macey Floyd Other [facility] Other Start: 11-07-2022 Telephone encounter Macey Everett [facility] Start: 10-30-2022 End: 10-30-2022 ambulatory Micheal Ocasio Other [facility] Other Start: 10-30-2022 Telephone encounter Micheal Ocasio [facility] [place] Start: 10-23-2022 End: 10-23-2022 ambulatory Micheal Ocasio Other [facility] Other Start: 10-23-2022 Telephone encounter Micheal Ocasio [facility] [place] Start: 10-16-2022 End: 10-16-2022 ambulatory Micheal Ocasio Other [facility] Other Start: 10-16-2022 Telephone encounter Micheal Ocasio [facility] [place] Start: 10-04-2022 End: 10-04-2022 ambulatory Micheal Ocasio Other [facility] Other Start: 10-04-2022 Office outpatient visit 15 minutes Micheal Ocasio [facility] [place] Start: 09-18-2022 End: 09-18-[address] MICHEAL OCASIO Facility: Start: 09-13-2022 End: 09-13-2022 Admission to same day surgery center DO Micheal Ocasio Work Phone: [facility] [place] Start: 09-13-2022 End: 09-13-2022 ambulatory DO Micheal Ocasio Work Phone: [facility] Work Phone: Start: 07-24-2022 End: 07-24-2022 ambulatory Micheal Ocasio Other [facility] Other Start: 07-24-2022 Office outpatient visit 15 minutes Micheal Ocasio [facility] [place] Start: 06-27-2022 End: 06-27-2022 ambulatory Micheal Ocasio Other [facility] Other Start: 06-27-2022 Telephone encounter Micheal Ocasio [facility] [place] Start: 05-23-2022 End: 05-23-2022 ambulatory Micheal Ocasio Other [facility] Other Start: 05-23-2022 Office outpatient visit 25 minutes Micheal Ocasio [facility] [place] Start: 05-15-2022 End: 05-15-2022 Patient encounter procedure DO Micheal Ocasio Work Phone: [facility] [place] Start: 05-14-2022 End: 05-14-2022 Patient encounter procedure DO Micheal Ocasio Work Phone: [facility] [place] Start: 05-14-2022 End: 05-14-2022 ambulatory Micheal Ocasio Other [facility] Other Start: 05-14-2022 Office outpatient visit 15 minutes Micheal Ocasio [facility] [place] Start: 05-12-2022 End: 05-12-[address] MICHEAL OCASIO Facility: Start: 05-06-2022 End: 05-06-2022 ambulatory Micheal Ocasio Other [facility] Other Start: 05-06-2022 Office outpatient visit 15 minutes Micheal Ocasio [facility] [place] Start: 04-29-2022 End: 04-29-2022 ambulatory Micheal Ocasio Other [facility] Other Start: 04-29-2022 Telephone encounter Micheal Ocasio [facility] [place] Start: 04-16-2022 End: 04-16-2022 ambulatory Micheal Ocasio Other [facility] Other Start: 04-16-2022 Telephone encounter Micheal Ocasio [facility] [place] Start: 04-15-2022 End: 04-15-2022 ambulatory Micheal Ocasio Other [facility] Other Start: 04-15-2022 Telephone encounter Micheal Ocasio [facility] [place] Start: 03-19-2022 End: 03-20-[address] MICHEAL OCASIO Facility:[facility] Start: 02-27-2022 End: 02-27-2022 ambulatory Micheal Ocasio Other [facility] Other Start: 02-27-2022 Telephone encounter Micheal Ocasio [facility] [place] Start: 02-27-2022 End: 02-27-[address] MICHEAL OCASIO Facility:[facility] Start: 02-12-2022 End: 02-12-2022 ambulatory Micheal Ocasio Other [facility] Other Start: 02-12-2022 Telephone encounter Micheal Ocasio [facility] [place] Start: 02-07-2022 End: 02-07-2022 ambulatory Micheal Ocasio Other [facility] Other Start: 02-07-2022 Telephone encounter Micheal Ocasio [facility] [place] Start: 02-05-2022 End: 02-05-2022 ambulatory Micheal Ocasio Other [facility] Other Start: 02-05-2022 Office outpatient visit 25 minutes Micheal Ocasio [facility] [place] Start: 01-29-2022 End: 01-29-2022 ambulatory Micheal Ocasio Other [facility] Other Start: 01-29-2022 Telephone encounter Micheal Ocasio [facility] [place] Start: 2021 End: 2021 ambulatory Micheal Ocasio Other [facility] Other Start: 2021 Office outpatient visit 25 minutes Micheal Ocasio [facility] [place] Start: 11-07-2021 End: 11-07-2021 ambulatory Micheal Ocasio Other [facility] Other Start: 11-07-2021 Office outpatient visit 15 minutes Micheal Ocasio [facility] [place] Start: 10-18-2021 End: 10-18-2021 ambulatory Micheal Ocasio Other [facility] Other Start: 10-18-2021 Telephone encounter Micheal Ocasio [facility] [place] Start: 10-10-2021 End: 10-10-2021 ambulatory Micheal Ocasio Other [facility] Other Start: 10-10-2021 Telephone encounter Micheal Ocasio [facility] [place] Start: 09-22-2021 End: 09-22-2021 ambulatory Micheal Ocasio Other [facility] Other Start: 09-22-2021 Office outpatient visit 15 minutes Micheal Ocasio [facility] [place] Start: 08-23-2021 End: 08-23-2021 ambulatory Micheal Ocasio Other [facility] Other Start: 08-23-2021 Telephone encounter Micheal Ocasio [facility] [place] Start: 04-13-2018 Ambulatory PROVIDER UNKNOWN Facili ty:[id number] Start: 04-13-2018 Ambulatory Facility:[facility] Start: 09-10-2017 [facility] Facility:[facility] [place] [facility] Procedures Date Procedure Procedure Detail Performing Clinician Start: 09-13-2022 Colposcopy of vulva DO Micheal Ocasio Work Phone: Start: 05-14-2022 X-ray of lumbar spin e, four or more views DO Micheal Ocasio Work Phone: Start: 05-14-2022 X-ray of both knees DO Micheal Ocasio Work Phone: Gallbladder structur e (body structure) Aly Castellanos History and physical examination, school Micheal Ocasio Other Hysterectomy Aly patel Plan of Treatment Date Care Activity Detail Author Start: 09-13-2022 End: 09-13-2022 [facility] Estradiol (E2) [Mass /volume] in Serum or Plasma [facility] Patient referral [facility] Work Phone: Immunizations Immunization Date Immunization Notes Care Provider Fa cilinellie 01-23-2021 COVID-19 Vaccine Pfi zer - Documentation Purposes Only Micheal Ocasio Other [facility] 12-29-2020 COVID-19 Vaccine Pfi zer - Documentation Purposes Only Micheal Ocasio Other [facility] Payers Date Payer Category Payer Self-pay [id number] 2023 Unknown 2015 [facility] CHASITY [id number] 1977 Unknown [id number] 2.16.84 0.1.670791.3.579.2.593 1977 Unknown [id number] 2.16.84 0.1.611118.3.579.2.593 1977 Unknown [id number] 2.16.84 0.1.527939.3.579.2.593 1977 Unknown [id number] 2.16.84 0.1.347839.3.579.2.593 1977 Unknown [id number] 2.16.84 0.1.133298.3.579.2.593 1977 Unknown [id number] 2.16.84 0.1.125664.3.579.2.1259 1977 Unknown [id number] 2.16.84 0.1.277021.3.579.2.1259 1977 Unknown [id number] 2.16.84 0.1.870038.3.579.2.1259 1977 Unknown [id number] 2.16.840 .1.830392.3.579.2.9 1977 Unknown [id number] 2.16.840 .1.915101.3.579.2.9 1977 Unknown [id number] 2.16.840 .1.567511.3.579.2.9 1977 Unknown [id number] 2.16.840 .1.405091.3.579.2.9 1977 Unknown [id number] 2.16.8 40.1.331364.3.579.2.727 1977 Unknown [id number] 2.16.8 40.1.164768.3.579.2.7 1977 Unknown [id number] 2.16.8 40.1.675389.3.579.2.7 1977 Unknown [id number] 2.16.8 40.1.909676.3.579.2.7 1977 Unknown [id number] 2.16.8 40.1.763453.3.579.2.727 1957 Medicaid [id number] 2. 16.840.1.504597.19 1959 Unknown [id number] 1959 Unknown [id number] 2.1 6.840.1.663799.19 Unknown [id number] 2.16.8 40.1.384873.3.579.2.531 Unknown [id number] 2.16.8 40.1.193869.3.579.2.531 Social History Date Type Detail Facility Unknown if ever smoked [facility] Other Sex Assigned At [facility] Start: 06-02-2020 End: 10-25-2023 Tobacco smoking status NHIS Never smoked tobacco (finding) [facility] Start: 1975 Sex Assigned At Female F [facility] Tobacco [facility] Comment on above: Denies. denies Tobacco smoking status No Smokin g Status Entered [facility] Goals Date Patient Goal Desired Activity /State Functional Status Date Assessment Result Facility 12-26-2023 Functional Status N/A [facility] 10-30-2023 Functional Status No [facility] 02-04-2023 Functional Status N/A [facility] Clinical Notes 08-06-2009 to 03-02-2024 Note Date & Type Note Facility 03-02-2024 Evaluation note Authored March 02, 2024 3:51p m The above note written by Tal GARNICA acting as human recorder, note dictated by Dr. Micheal Ocasio. [facility] Work Phone: 1(434) 879-508402-23-2024 Evaluation note* Author Micheal [facility] Authored November 28, 2023 4:49pm 4 to 6 weeks, the ER if conc erns,The above note written by Alejandra Peng LPN acting as human recorder, note dictated by Dr. Micheal Ocasio [facility] Work Phone: 1(632) 190-840102-16-2024 NoteEchocardiology Procedure Exam Date/Time Accession # Ordering Echo Transthoracic 11/21/2023 13:48 EST [id number] Jasmin NGUYỄN, Aly Tim CPT code 86319 [id number] Reason for Exam (Echo Transthoracic Complete) R07.9;Chest pain Report [address] [address] Adult Echocardiogram Report Name: BRANDON MARTIN Study Date: 11/21/2023 12:56 PM BP: 145/91 mmHg Patient Location: [facility] HR: 83 : 1975 Gender: Female Height: 58 in Age: 47 yrs Ethnicity: T Weight: 152 lb Reason For Study: Chest pain BSA: 1.6 m2 History: HTN Ordering Physician: Jasmin^Aly^Meeta Referring Physician: Aly Castellanos Performed By: Kathi Hill, SHANTI, RVT Interpretation Summary No comparison study is available. Ejection Fraction = 65-70%. The left ventricular wall motion is normal. Normal diastolic function. There was insufficient TR detected to calculate RV systolic pressure. Procedure A complete two-dimensional transthoracic echocardiogram was performed (2D, M- mode, spectral and color flow Doppler). Study quality is good. I WMSI = 1.00 % Normal = 100 Segments Size X - Cannot 2 - 1-2 small Interpret 1 - Normal Hypokinetic 3 - Akinetic 4 - Dyskinetic3-5 moderate 5 - Aneurysmal 6-14 large 15-16 diffuse Left Ventricle The left ventricle is normal in size. There is normal left ventricular wall thickness. Ejection Fraction = 65-70%. The left ventricular wall motion is normal. Normal diastolic function. Echocardiology Report Left Atrium The left atrial size is normal. Right Atrium Right atrial size is normal. Right Ventricle The right ventricular systolic function is normal. Aortic Valve The aortic valve is trileaflet. Mitral Valve Mitral valve structure is normal. Tricuspid Valve Structurally normal tricuspid valve. There was insufficient TR detected to calculate RV systolic pressure. Pulmonic Valve The pulmonic valve is normal. Arteries The aortic root is normal in size. Venous The inferior vena cava is normal in size, and collapses normally with respiration. Effusion There is no pericardial effusion. MMode/2D Measurements & Calculations RVDd: 2.5 cm LVIDd: 4.3 cm FS: 36.0 % Ao root diam: 2.6 cm IVSd: 0.91 cm LVIDs: 2.7 cm EDV(Teich): 82.6 ml Ao root area: 5.1 cm2 LVPWd: 1.1 cm ESV(Teich): 28.2 ml LA dimension: 2.8 cm EF(Teich): 65.9 % asc Aorta Diam: 2.6 cm LVOT diam: 2.0 cm LVLd ap4: 7.1 cm EDV(MOD-sp2): 61.0 ml LVOT area: 3.1 cm2 EDV(MOD-sp4): 50.2 ml ESV(MOD-sp2): 17.9 ml LVLs ap4: 6.3 cm EF(MOD-sp2): 70.7 % ESV(MOD-sp4): 22.0 ml EF(MOD-sp4): 56.2 % SV(MOD-sp4): 28.2 ml TAPSE: 2.5 cm IVC Diam: 1.6 cm RVIDd/LVIDd: 0.58 EF (MOD-bp): 64.5 % Doppler Measurements & Calculations MV E max flavio: 73.3 cm/sec MV dec time: 0.19 sec Ao V2 max: 132.0 cm/sec LV V1 max P.1 mmHg MV A max flavio: 73.8 cm/sec Ao max P.0 mmHg LV V1 mean P.0 mmHg Echocardiology Report MV E/A: 0.99 Ao V2 mean: 90.1 cm/sec LV V1 max: 101.0 cm/sec Lat Peak E' Flavio: 8.2 cm/sec Ao mean P.0 mmHg LV V1 mean: 62.9 cm/sec E/E' Lat: 9.0 Ao V2 VTI: 24.4 cm LV V1 VTI: 17.2 cm Med Peak E' Flavio: 6.7 cm/sec ISH(I,D): 2.2 cm2 E/E' Med: 10.9 ISH(V,D): 2.4 cm2 SV(LVOT): 54.1 ml RAP systole: 3.0 mmHg AV VR: 0.77 ISH(VTI)/BSA_phl: 1.4 FINAL REPORT Dictated: 11/21/2023 12:56 pm Brown NEGRO MD Signed (Electronic Signature): 11/21/2023 4:01 pm Signed by: Brown NEGRO MD Transcribed by: APRYL Technologist: [facility]02-16-2024 Evaluation + Plan note Future Scheduled Tests Radiology* EC Stress Echo Complete, Transthoracic 11/21/23 [facility]01-04-2024 Evaluation note* Encounter Date Diagnosis Assessment Notes Treatment Notes Treatment Clinical Notes Oct, Chest pain, unspecified type (ICD-10 - R07.9) Patient is scheduled in a few weeks to have a consult with the garden tractor mechanic Dr. Garcia in [place]. She is to get clearance to take adipex. We will follow up again in six weeks. Oct, Edema, unspecified type (ICD-10 - R60.9) Edema is mild upon examination. I advised the patient that the amlodipine would be contributing to the edema. We will continue to monitor. Oct, Hypertension (ICD-10 - I10) The patients blood pressure was WNL upon check in. The patient is having negative side effects of edema with taking the amlodipine. Oct, Hyperglycemia (ICD-10 - R73.9) The patient had been on wegovy in the past with good results in weight loss but insurance would not cover. I did provide samples of rybelsus for patient to trial. Advised the patient to continue monitoring diet and exercise. Oct, BMI 31.0-31.9,adult (ICD-10 - Z68.31) Patient was provided with sample of rybelsus in hopes this will help the patient loss weight. We will conitnue to monitor. Oct, Other obesity (ICD-10 - E66.8) Encouraged to watch diet and increase exercise regimen; we will continue to monitor. [facility] 01-04-2024 Evaluation note* Encounter Date Diagnosis Assessment Notes Treatment Notes Treatment Clinical Notes Oct, Chest pain, unspecified type (ICD-10 - R07.9) Oct, Edema, unspecified type (ICD-10 - R60.9) Oct, Hypertension (ICD-10 - I10) The patients blood pressure was WNL upon check in. The patient is having negative side effects of edema with taking the amlodipine. Oct, Hyperglycemia (ICD-1 0 - R73.9) The patient had been on wegovy in the past with good results in weight loss but insurance would not cover. I did provide samples of Oct, Dyspnea on exertion (ICD-10 - R06.09) Oct, Lumbar back pain (ICD-10 - M54.50) Oct, BMI 31.0-31.9,adult (ICD-10 - Z68.31) Oct, Other obesity (ICD-1 0 - E66.8) [facility] 12-01-2023 Evaluation note* Encounter Date Diagnosis Assessment Notes Treatment Notes Treatment Clinical Notes Sep, Chest pain (ICD-10 - R07.9) ER report reviewed with the patient. Chest XR was normal. The patient reports last stress test she had was about ten years ago. I do recommend the patient have a recheck stress test, even better yet have a consult with a garden tractor mechanic first. Patient is agreeable and did request to see Dr. Castellanos. Sep, Abnormal ECG (ICD-10 - R94.31) Noted right bundle branch block. Sep, Urinary frequency (ICD-10 - R35.0) In house urine was negative. Sep, BMI 30.0-30.9,adult (ICD-10 - Z68.30) Patient presents in the office with a four pound weight gain from last check. The patient is being referred to cardiology for a work up. If everything is clear, we will discuss starting the patient on adipex again. Sep, Obesity, unspecified (ICD-10 - E66.9) Encouraged to watch diet and increase exercise regimen; we will continue to monitor. Sep, Anxiety and depression (ICD-10 - F41.9) Patient is to continue with the venlafaxine. We will continue to monitor. Sep, Hypertension (ICD-10 - I10) The patients blood pressure was WNL upon check in. Patient is to continue with the above medication regimen. Sep, Bladder spasms (ICD-10 - N32.89) In house urine was negative. Sep, Mood swings (ICD-10 - F39) Patient reports only starting the above medication about two weeks ago and feels like she has not given it a chance yet to work. We will re-evaluate in one month. Sep, Hypokalemia (ICD-10 - E87.6) We will continue to montior. [facility] 10-19-2023 Evaluation note* Encounter Date Diagnosis Assessment Notes Treatment Notes Treatment Clinical Notes Jul, Left knee pain (ICD-10 - M25.562) Pt denies any pain with palpation, or weakness in her knee. I did recommend the above imagining to further investigate this. She is to take OTC pain reliever/ antiinflammatory medication as needed. I did also recommend diclofenac gel OTC, and advised she needs to rub this in thoroughly for a minute. We will continue to monitor. Jul, Mood swings (ICD-10 - F39) Pt c/o brain fog wit h the Lexapro. I do agree she would benefit from another medication, and recommended the above. She was agreeable to this, therefore after risks and benefits were discussed, this was provided for her today. [facility] 10-04-2023 Evaluation note* Encounter Date Diagnosis Assessment Notes Treatment Notes Treatment Clinical Notes Jul, Hypertension (ICD-10 - I10) Jul, GERD (gastroesophageal reflux disease) (ICD-10 - K21.9) [facility] 10-02-2023 Evaluation note* Encounter Date Diagnosis Assessment Notes Treatment Notes Treatment Clinical Notes Jul, Hypertension (ICD-10 - I10) [facility] 10-01-2023 History general Narrative - Reported* Type Description Date Medical History 2006 pelvic exam done Medical History no mammogram Medical History no colonoscopy Medical History no stress test Medical History miscarriage julyaugust 07 009 Medical History MRI Lumbar Spine 03-29-11; [facility] Medical History UGI; 07-22-11; [facility] Medical History Gallbladder US; 07-22-11 [facility] Medical History 08/06/12 Blood work C BC, CMP, LIpid, HGA1C (5.1) T4, TSH, Medical History 04/2015 Mammogram Medical History hysterectomy 12/17/15 Medical History 04/13/2018 Stress test Medical History 06/2020 EGD and Colonoscopy - Dr Arriola Medical History 03/19/2022 Covid + Surgical History right foot toe surgery - [place] Surgical History bladder sling Surgical History gallbladder removed by Dr. Iliana espinosa 07/15/14 Surgical History hysterectomy ( still has ovarie s) - Dr. Aj 01/04/16 Surgical History Granulomas removed from perinea l area 09/13/2022 Hospitalization History Childbirth [facility] 10-01-2023 History general Narrative - Reported* Type Description Date Medical History 2006 pelvic exam done Medical History no mammogram Medical History no colonoscopy Medical History no stress test Medical History miscarriage julyaugust 07 009 Medical History MRI Lumbar Spine 03-29-11; [facility] Medical History UGI; 07-22-11; [facility] Medical History Gallbladder US; 07-22-11 [facility] Medical History 08/06/12 Blood work C BC, CMP, LIpid, HGA1C (5.1) T4, TSH, Medical History 04/2015 Mammogram Medical History hysterectomy 12/17/15 Medical History 04/13/2018 Stress test Medical History 06/2020 EGD and Colonoscopy - Dr Arriola Medical History 03/19/2022 Covid + Medical History 08/2023 EKG at [facility] Surgical History right foot toe surgery - toe na [place] Surgical History bladder sling Surgical History gallbladder removed by Dr. Iliana espinosa 07/15/14 Surgical History hysterectomy ( still has ovarie s) - Dr. 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 Jun, Hypertension (ICD-10 - I10) Blood pressure findings are elevated in the office today, patient reports her blood pressure findings are within normal limits at home. I did recheck her blood pressure myself with a findings of 154/56. I did complete and sign her paperwork following physical exam. Jun, Restless leg syndrom e (ICD-10 - G25.81) Jun, Body mass index 29.0-29.9, adult (ICD-10 - Z68.29) The patient continues to have a consistent weight loss, she has been taking Wegovy off and on the past six months , currenlty not taking it due to cost. I did provide the patient with a sample of Ozempic and recommend she take .25 mg for eight weeks. 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 The patient feels it is triggered by an emotional trauma that occurred at this time last year. SSRI treatment recommended, positive and negative side effects reviewed. The patient is in agreement.The patient states she will look into a therapist/counse david at [facility]. 11 Sep, 2023 Hyperglycemia (ICD-1 0 - R73.9) Blood work ordered , pt encourged to have this collected. Jun, Hyperlipidemia (ICD-10 - E78.5) Blood work ordered Jun, Anxiety and depression (ICD-10 - F41.9) Pt is to continue with the above medication and we will continue to monitor. [facility] 09-07-2023 Evaluation note* Encounter Date Diagnosis Assessment Notes Treatment Notes Treatment Clinical Notes Jun, Body mass index [BMI] 30.0-30.9, adult (ICD-10 - Z68.30) [facility] 05-08-2023 Evaluation note* Encounter Date Diagnosis Assessment Notes Treatment Notes Treatment Clinical Notes February, Hypertension (ICD-10 - I10) [facility] 05-05-2023 Evaluation note* Encounter Date Diagnosis Assessment Notes Treatment Notes Treatment Clinical Notes February, Acute colitis (ICD-10 - K52.9) ER reports reviewed. I advised the patient to continue with the above medications. Patient reporting symptoms improving. We will continue to monitor. February, IBS (irritable bowel syndrome) (ICD-10 - K58.9) Patient is to continue with the above medication. February, BMI 30.0-30.9,adult (ICD-10 - Z68.30) Patient presents in the office with a five pound weight loss from last visit. Is down a total of 19 pounds. Unfortunately the patients would have to pay out of pocket $300 a month for the wegovy. Patient has been using the wegovy samples. Patient is interested in starting mounjaro, but I advised the patient again she is not diabetic and this is indicated for diabetes. I provided more samples of wegovy but advised the patient to wait another two weeks to start injection again due to recent colitis flare up. February, Obesity (ICD-10 - E66.9) Encouraged to watch diet and increase exercise regimen; we will continue to monitor. February, Hypertension (ICD-10 - I10) Advised the patient to conitnue checking blood pressures at home. Patient is to continue with the above medication regimen. [facility] 05-02-2023 Hospital Discharge instructions Patient Education 02/04/2023 20:38:10 Colitis Colitis Colitis is a condition in which the colon is inflamed. It can cause diarrhea, blood in the stool, and abdominal pain. Colitis can last a short time (be acute), or it may last a long time (become chronic). What are the causes? This condition may be caused by: Infections from viruses or bacteria. A reaction to medicine. Certain autoimmune diseases, such as Crohn's disease or ulcerative colitis. Radiation treatment. Decreased blood flow to the bowel (ischemia). What are the signs or symptoms? Symptoms of this condition include: Diarrhea, blood in the stool, or black, tarry stool. Pain in the joints or abdominal pain. Fever or fatigue. Vomiting. Weight loss. Bloating. Having fewer bowel movements than usual. A strong and sudden urge to have a bowel movement. Feeling like the bowel is not empty after a bowel movement. How is this diagnosed? This condition may be diagnosed based on a stool test and a blood test. You may also have other tests, such as: X-rays. CT scan. Colonoscopy. Endoscopy. Biopsy. How is this treated? Treatment for this condition depends on the cause. This condition may be treated with: Steps to rest the bowel, such as not eating or drinking for a period of time. Fluids that are given through an IV. Medicine for pain and diarrhea. Antibiotic medicines. Cortisone medicines. Surgery. Follow these instructions at home: Eating and drinking Follow instructions from your health care provider about eating or drinking restrictions. Drink enough fluid to keep your urine pale yellow. Work with a dietitian to determine whether certain foods cause your condition to flare up. Avoid foods or drinks that cause flare-ups. Eat a well-balanced diet. General instructions If you were prescribed an antibiotic medicine, take it as told by your health care provider. Do notstop taking the antibiotic even if you start to feel better. Take [id number] and prescription medicines only as told by your health care provider. Keep all follow-up visits. This is important. Contact a health care provider if: Your symptoms do not go away. You develop new symptoms. Get help right away if: You have a fever that does not go away with treatment. You develop chills. You have extreme weakness, fainting, or dehydration. You vomit repeatedly. You develop severe pain in your abdomen. You pass bloody or tarry stool. Summary Colitis is a condition in which the colon is inflamed. Colitis can last a short time (be acute), maddie may last a long time (become chronic). Treatment for this condition depends on the cause and may include resting the bowel, taking medicines, or having surgery. If you were prescribed an antibiotic medicine, take it as told by your health care provider. Do notstop taking the antibiotic even if you start to feel better. Get help right away if you develop severe pain in your abdomen. Keep all follow-up visits. This is important. This information is not intended to replace advice given to you by your health care provider. Make sure you discuss any questions you have with your health care provider. Document Revised: 05/29/2021 Document Reviewed: 05/29/2021 [employer] Patient Education 2022 [employer]. Follow Up Care 02/04/2023 18:51:23 With:MICHEAL OCASIO Address: [address] [place], [place] [address] Business (1) When:02/07/2023 20:18:24 Comments:Take the antibiotics twice a day as prescribed till you have completed the course you can use the Bentyl, Zofran every 6-8 hours as needed for nausea and abdominal pain. Please follow-up with your primary care doctor in the next 2 to 3 days. Please return to the ED for any new or worsening symptoms. [facility]05-02-2023 Evaluation + Plan noteExtracted from: Title:ED Note Author:Gila Beasley DO Date :02/04/23 Acute colitis (K52.9: Noninf ective gastroenteritis and colitis, unspecified) Orders: acetaminophen-hydrocodone, 1 EA, Tab, Oral, Once, Stop date 02/04/23 20:18:00 EDT, STAT, Start date 02/04/23 20:18:00 EDT amoxicillin-clavulanate, 1 tab(s), Oral, q12hr for 10 day(s), 20 tab(s), Refill(s) 0 amoxicillin-clavulanate, 1 tab(s), Tab, Oral, Once, Stop date 02/04/23 20:15:00 EDT, STAT, Start date 02/04/23 20:15:00 EDT dicyclomine, 20 mg = 1 tab(s), Tab, Oral, Once, Stop date 02/04/23 19:21:00 EDT, STAT, Start date 02/04/23 19:21:00 EDT, 02/04/23 19:21:00 EDT dicyclomine, 10 mg = 1 cap(s), Oral, QID, X 7 day(s), # 14 cap(s), Refills(s) 0 ondansetron, 4 mg = 2 mL, Injection, IV Push, Once, Stop date 02/04/23 19:21:00 EDT, STAT, Start date 02/04/23 19:21:00 EDT, 02/04/23 19:21:00 EDT ondansetron, 4 mg = 1 tab(s), Oral, q8hr, # 12 tab(s), Refills(s) 0 Sodium Chloride 0.9% intravenous solution 1,000 mL, 1,000 mL, IV, 20 mL/hr, STAT, Start date 02/04/23 19:21:00 EDT, 50 hour(s), Total volume (mL): 1,000, 69 kg, 1.7, m2 Automated Diff Basic Metabolic Panel CBC w/ Auto Diff CT Abdomen/Pelvis w/o Contrast eGFR Extra Blue Tube Hepatic Function Panel Lipase Level UA With Cult Reflex [facility]04-14-2023 Evaluation note* Encounter Date Diagnosis Assessment Notes Treatment Notes Treatment Clinical Notes Jan, BMI 31.0-31.9,adult (ICD-10 - Z68.31) Pt did lose about 9 pounds so far. We discussed the adverse effects pt is having with the above medication. I advised I do not feel her tachycardia is related to this directly, though it may be indirectly. I did perform the above in house lab today and reviewed the results with her. Pt is to continue with the above medication and continue watching their diet and increase their exercise regimen. Jan, Obesity (ICD-10 - E66.9) Jan, Constipation (ICD-10 - K59.00) I did provide samples of the above medication to the pt now. I encourged her to increase her fluid intake as well. We will continue to monitor. Jan, Seasonal allergic rhinitis (ICD-10 - J30.2) A kenalog injection was provided for pt today, as this has helped her in the past. Pt is to continue with the above medication and we will continue to monitor. Jan, IBS (irritable bowel syndrome) (ICD-10 - K58.9) Pt is to continue with the above medication and we will continue to monitor. Jan, Tachycardia (ICD-10 - R00.0) Discussion was had regarding the possible cause of this new onset tachycardia. She admits that she may be dehydrated, which I advised is very likely to cause this. I encouraged her to increase her water intake. We will continue to monitor. [facility] 03-28-2023 Evaluation note* Encounter Date Diagnosis Assessment Notes Treatment Notes Treatment Clinical Notes Dec, BMI 32.0-32.9,adult (ICD-10 - Z68.32) Dec, Prediabetes (ICD-10 - R73.03) [facility] 03-24-2023 Evaluation note* Encounter Date Diagnosis Assessment Notes Treatment Notes Treatment Clinical Notes Dec, Anxiety and depression (ICD-10 - F41.9) Patient voiced improvement with the above medication therefore she is to continue as directed. Dec, BMI 32.0-32.9,adult (ICD-10 - Z68.32) Patient has lost 4 pounds per our scale but 5 pounds per her scale after just two injections. I did provide her with another sample for her to continue and instructed her to call and check for coverage on the above medication. Dec, Obesity (ICD-10 - E66.9) Encouraged patient to continue with diet and exercise. Dec, COVID-19 (ICD-10 - U07.1) Patient admits she is 14 days past her postiive test date for Covid just stating she was very tired. Dec, Right hand pain (ICD-10 - M79.641) Patient reports pain at the medial aspect of the right wrist. 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 I suggest she obtain an xray to further evaluate. Patient is agreeable. Order provided. [facility] 03-13-2023 Evaluation note* Encounter Date Diagnosis Assessment Notes Treatment Notes Treatment Clinical Notes Dec, Contact with and (suspected) exposure to other viral communicable diseases (ICD-10 - Z20.828) Dec, COVID-19 (ICD-10 - U07.1) Today you tested positive for the COVID virus. This mean you need to follow all CDC quarantine guidelines found at [email or web address] gov. It is important to rest, increase fluids, and stay at home. Recommend contacting primary care provider and discussing best course of action if you have chronic health conditions. COVID POSITIVE education handout discharge instructions. given. [facility] 03-10-2023 Evaluation note* Encounter Date Diagnosis Assessment Notes Treatment Notes Treatment Clinical Notes Dec, Leg pain (ICD-10 - M79.606) Pt states since switching jobs, she has been seated during work hours. She reports using a box as a foot stool. Dec, Restless leg (ICD-10 - G25.81) Dec, BMI 33.0-33.9,adult (ICD-10 - Z68.33) Pt can not tolerate adipex. We did discuss injectable medications, and the risk these pose, as pt is prone to hypoglycemia. I recommended she look into these medications, and call her insurance to check coverage. I provided her with a written list of these medications. I do feel pt would benefit from Wegovy, therefore samples were provided today. We did demonstrate for her how to self inject this medication, and she voices understanding. Encouraged to watch diet and increase exercise regimen; we will continue to monitor. Dec, Obesity (ICD-10 - E66.9) Dec, Tingling of both feet (ICD-10 - R20.2) Dec, Anxiety and depression (ICD-10 - F41.9) Pt voices a significant amout of stress due to situational stressors, like divorce and car trouble. I did recommend pt try the above medication, and she is agreeable to this. Risks and benefits discussed, and this was provided for her today. Dec, Dyshidrotic eczema (ICD-10 - L30.1) Upon inspection, pt's rash is eczema. I provided the above medication and advised pt to apply this to only her rash, and to wash her hands thoroughly after use. We will continue to monitor. [facility] 01-11-2023 Evaluation note* Encounter Date Diagnosis Assessment Notes Treatment Notes Treatment Clinical Notes Oct, Recurrent cough (ICD-10 - R05.8) [facility] 12-30-2022 Evaluation note* Encounter Date Diagnosis Assessment Notes Treatment Notes Treatment Clinical Notes Sep, Pain in right leg (ICD-10 - M79.604) I advised the patient that the steroid regimen she is currently taking for cold should help with the bilateral leg pain. Sep, Pain in left leg (ICD-10 - M79.605) We will continue to monitor. Sep, Chest congestion (ICD-10 - R09.89) In house covid and flu test was negative. Patient was in the ER 09/18/22 and missed work 09/19/22 and 09/20/22. Since the patient did not have any PTO during the days missed, patient will need to use FMLA. Patient is to continue with taking the steriods twice a day. Sep, Hypertension (ICD-10 - I10) The patients blood pressure was slightly elevated upon check in. Patient is to continue with the above medication. Patient is to check blood pressures at home. [facility] 12-14-2022 NoteEXAMINATION: XR ABD FLAT UP_PA CH HISTORY: NAUSEA WITH VOMITING, UNSPECIFIED ; post procedure fever COMPARISON: No relevant comparison available. FINDINGS: LUNGS: Mild haziness and stranding within lung bases. MEDIASTINUM: No abnormal widening. BOWEL GAS PATTERN: Non-obstructed. No abnormal dilation or suspicious fluid levels. Moderate stool burden. FREE AIR: None. CALCIFICATIONS: None significant. BONES: No fracture or visible bone lesion. OTHER: Negative. IMPRESSION: 1. Mild bibasilar pulmonary infiltrates versus atelectasis. 2. Normal bowel gas pattern. No suspicious abdominal findings. Electronically authenticated by: LUPE ONTIVEROS Date: 2022-09-18 09:27[facility]12-09-2022 Hospital Discharge instructions Additional Instructions DISCHARGE INSTRUCTIONS FOR TVT-O Sling -Empty your bladder every 3 to 4 hours while awake for the first 5 days. When you begin to urinate, don't bear down to start the stream because the TVT sling will kink the urethra and make it difficult to go. -No lifting over 10 pounds or strenuous exercise for 6 weeks. -No restrictions for walking or use of stairs. -You may drive after 2 to 3 days from your surgery, or when you feel comfortable enough to perform emergency maneuvers behind the wheel. -If you have a dressing or Band-Aids on your thighs, you may remove them the morning after surgery. If you have Steri-strips (small paper tapes) over your incisions, they will usually fall off in about 1 week. Observe the area for redness. -You may shower after surgery, but no tub bath for 1 week. -Do NOT place anything in the vagina (tampons, douching, or sexual relations) until you have had your 4 weeks visit. -Light vaginal bleeding is not uncommon in the first week after surgery. -Notify your physician for a temperature of 101 degrees, burning on urination, or redness, swelling or discharge from the incision sites. -If you have any questions not covered by these instructions don't hesitate to call the office. -After office hours the answering service will refer you to our on-call physician. FOLLOW UP -Call the office soon for a post-operative appointment in 4 weeks. -The office phone number is [[phone]]. [ ][facility] Work Phone: [phone]) 904-379510-19-2022 Evaluation note* Encounter Date Diagnosis Assessment Notes Treatment Notes Treatment Clinical Notes Jul, BMI 34.0-34.9,adult (ICD-10 - Z68.34) I did advise the steroids the pt was recently on may be attributing to her weight gain. Encouraged to watch diet and increase exercise regimen; we will continue to monitor. Jul, Hypertension (ICD-10 - I10) Pt denies monitoring her blood pressure at home. She states she normally takes her medicaitons at 8am, so her blood pressure this morning may be elevated from not having taken her medications yet. I encouraged pt to monitor her blood pressure at home and continue taking her medications regularly. [facility] 10-01-2022 History general Narrative - Reported* Type Description Date Medical History 2006 pelvic exam done Medical History no mammogram Medical History no colonoscopy Medical History no stress test Medical History miscarriage july & august 07 009 Medical History MRI Lumbar Spine 03-29-11; [facility] Medical History UGI; 07-22-11; [facility] Medical History Gallbladder US; 07-22-11 [facility] Medical History 08/06/12 Blood work C BC, CMP, LIpid, HGA1C (5.1) T4, TSH, Medical History 04/2015 Mammogram Medical History hysterectomy 12/17/15 Medical History 04/13/2018 Stress test Medical History 06/2020 EGD and Colonoscopy - Dr Arriola Medical History 03/19/2022 Covid + Surgical History right foot toe surgery - toe na il Surgical History bladder sling Surgical History gallbladder removed by Dr. Iliana espinosa 07/15/14 Surgical History hysterectomy ( still has ovarie s) - Dr. Aj 01/04/16 Hospitalization History Childbirth [facility] 10-01-2022 History general Narrative - Reported* Type Description Date Medical History 2006 pelvic exam done Medical History no mammogram Medical History no colonoscopy Medical History no stress test Medical History miscarriage julyaugust 07 009 Medical History MRI Lumbar Spine 03-29-11; [facility] Medical History UGI; 07-22-11; [facility] Medical History Gallbladder US; 07-22-11 [facility] Medical History 08/06/12 Blood work C BC, CMP, LIpid, HGA1C (5.1) T4, TSH, Medical History 04/2015 Mammogram Medical History hysterectomy 12/17/15 Medical History 04/13/2018 Stress test Medical History 06/2020 EGD and Colonoscopy - Dr Arriola Medical History 03/19/2022 Covid + Surgical History right foot toe surgery - toe na il Surgical History bladder sling Surgical History gallbladder removed by Dr. Iliana espinosa 07/15/14 Surgical History hysterectomy ( still has ovarie s) - Dr. Aj 3/31/16 Surgical History Granulomas removed from perinea l area 09/13/2022 Hospitalization History Childbirth [facility] 09-22-2022 Evaluation note* Encounter Date Diagnosis Assessment Notes Treatment Notes Treatment Clinical Notes Jun, Hypertension (ICD-10 - I10) [facility] 08-18-2022 Evaluation note* Encounter Date Diagnosis Assessment Notes Treatment Notes Treatment Clinical Notes May, Polymyalgia (ICD-10 - M35.3) Reviewed blood work results with the patient, CRP and ESR continues to be slightly elevated but the DAYDAY is negative. We will continue to monitor. May, Persistent cough (ICD-10 - R05.3) I did provide sample s of trelegy inplace of the breztri. Since the patient had a possible side effect of the prednisone, we will try the medrol. I will advised two medrol dose packs and advised her to take the second pack back and forth from the first pack. We will continue to monitor. May, Hypertension (ICD-10 - I10) The patients blood pressure was WNL upon check in. Therefore she is to continue with the above medication regimen. May, Lower extremity edema (ICD-10 - R60.0) We will continue to monitor. May, Skin tag (ICD-10 - L91.8) Noted of right upper medial arm measuring 0.5cm, right axilla 3mm and right superpraclavicular 3mm. I will remove these by shave biopsy in the near future. These have changed in size and patient reports these being bothersome. May, Lumbar pain (ICD-10 - M54.50) OMT provided in the office with good movement and improvement. May, Somatic dysfunction of hip region (ICD-10 - M99.05) OMT provided in the office. May, Somatic dysfunction of lumbar region (ICD-10 - M99.03) OMT provided in the office. May, Somatic dysfunction of rib (ICD-10 - M99.08) OMT provided in the office. May, Somatic dysfunction of spine, thoracic (ICD-10 - M99.02) OMT provided in the office. [facility] 08-09-2022 Evaluation note* Encounter Date Diagnosis Assessment Notes Treatment Notes Treatment Clinical Notes May, Polymyalgia (ICD-10 - M35.3) Patient was recently in the [place] ER, she reports she woke up in the morning with sudden onset of pain in her bilateral hands, elbow, wrists, knees, hips and back. She does have a history of elevated sed rates. I did order a rheumatoid profile to further evaluate this. Currently her bilateral knees, ankles, and wrists are painful to walk on. She has tried OTC motrin with slight relief noted therefore was encouraged to continue with until we obtain the blood work and x-ray results. She voiced understanding. May, Persistent cough (ICD-10 - R05.3) Patient reports her cough is improved. 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 May, Hypertension (ICD-10 - I10) Blood pressure upon check in is WNL. She is to continue on the above medications. [facility] 08-01-2022 Evaluation note* Encounter Date Diagnosis Assessment Notes Treatment Notes Treatment Clinical Notes May, Persistent cough (ICD-10 - R05.3) Patient has a chronic residual cough s/p covid from March. She has been to see pulmonology but did not see physician. Did see DRESS OPERATOR in office. . The Breztri and nebulizer treatment seems to work the best. Patient states that pulmonary advised her this is more than likely related to Covid infection. CXR and spirometery reviewed and were within normal limits. Lungs auscultated in office today. At this time I want her to stay on the Breztri. Samples will be provided as long as I have them available to give. I want to keep her on the prednisone too at the higher dose with a slower taper. Patient is in agreement to this. I do want her to have hycodan cough syrup 120 cc. May, Hypertension (ICD-10 - I10) Blood pressure controlled at the present time. Patient is to continue with current meds and watch sodium in diet. May, History of COVID-19 (ICD-10 - Z86.16) Covid infection 03/2022. Did develop a cough later in the month of April. Has been evaluated by pulmonary office and did see DRESS OPERATOR, not the physician. [facility] 07-11-2022 Evaluation note* Encounter Date Diagnosis Assessment Notes Treatment Notes Treatment Clinical Notes Apr, Shortness of breath (ICD-10 - R06.02) Apr, History of COVID-19 (ICD-10 - Z86.16) [facility] 05-05-2022 Evaluation note* Encounter Date Diagnosis Assessment Notes Treatment Notes Treatment Clinical Notes February, Hypertension (ICD-10 - I10) [facility] 05-03-2022 Evaluation note* Encounter Date Diagnosis Assessment Notes Treatment Notes Treatment Clinical Notes February, Insomnia (ICD-10 - G47.00) Patient is to continue with the above medication as needed. February, Seasonal allergic rhinitis (ICD-10 - J30.2) Patient is to continue with the above medication. February, Hypertension (ICD-10 - I10) The patients blood pressure was elevated upon check in. I did recheck blood pressure myself with the same reading as check in. Patient does admit she has not been taking 5mg amldopine in the morning like she is supposed to be. Strongly encouraged patient to check blood pressures at home and keep a log. We will continue to monitor. February, Bladder spasms (ICD-10 - N32.89) Patient is to continue to follow with Dr. Israel as scheduled. [facility] 04-26-2022 Evaluation note* Encounter Date Diagnosis Assessment Notes Treatment Notes Treatment Clinical Notes Jan, Hypertension (ICD-10 - I10) [facility] 03-01-2022 Evaluation note* Encounter Date Diagnosis Assessment Notes Treatment Notes Treatment Clinical Notes Dec, Difficulty sleeping (ICD-10 - G47.9) Patient reports taking the above medication once and noticed getting a spasm in the nack of the neck. I discussed with patient I have not heard of this being a side effect of the medication. I advised patient to try the above medication again and if this occurs we will discuss changing the medication. Dec, Pleurisy (ICD-10 - R09.1) Patient is to continue with the above inhaler as needed. Refill provided. Dec, Hypertension (ICD-10 - I10) The patients blood pressure was elevated upon check in. Patient is to continue with the above medication regimen and encouraged patient to monitor blood pressures at home. Dec, Lumbar pain (ICD-10 - M54.50) Refill provided of the above. Dec, Seasonal allergic rhinitis (ICD-10 - J30.2) I did prescribe the above medication. Kenalog administered in office today. [facility] 02-02-2022 Evaluation note* Encounter Date Diagnosis Assessment Notes Treatment Notes Treatment Clinical Notes Nov, Lumbar pain (ICD-10 - M54.50) The patient does have left lower lumbar pain that radiates down her bilateral legs. She has noticed an increase in her urinary frequency but upon review of in house urinalysis she has no signs of infection or hematuria. She does take the muscle relaxer at night that somewhat helps her sleep and admits she does drink whiskey at times but admits she does not drink the whiskey on the same night she takes the muscle relaxer. OMT offered and performed with slight improvement noted. We will continue to monitor. Nov, Hypertension (ICD-10 - I10) Upon check in, the patient's blood pressure is elevated at 145/95. She does admit she has not taken her medications yet today but gets readings of around 130's-mid to high 80's at home. She does continue to have issues with her marriage causing quite a bit of stress in her life currently. She was encouraged to continue on the above medications. We will continue to monitor. Nov, Difficulty sleeping (ICD-10 - G47.9) The patient reports having difficulty sleeping at night. I did discuss prescribing her Trazodone 100mg but she does admit to occasionally having shots of Whiskey at night stating she will have approximately 4-5. I did then recommend only giving her 50mg and advised against taking this when she does drink alcohol. All other questions, concerns, positive, and negative effects were reviewed. She voiced understanding. Medication e-scribed. We will continue to monitor. Nov, Stress at home (ICD-10 - F43.9) The patient states her marriage is still strained but neither are wanting to make a decision to change their circumstances. Nov, Somatic dysfunction of cervical region (ICD-10 - M99.01) Nov, Somatic dysfunction of thoracic region (ICD-10 - M99.02) Nov, Somatic dysfunction of rib cage region (ICD-10 - M99.08) Nov, Somatic dysfunction of lumbar region (ICD-10 - M99.03) Nov, Somatic dysfunction of sacral region (ICD-10 - M99.04) [facility] 12-18-2021 Evaluation note* Encounter Date Diagnosis Assessment Notes Treatment Notes Treatment Clinical Notes Sep, Hypertension (ICD-10 - I10) Upon check in, the patient's systolic reading is okay but her diastolic reading is slightly elevated. She reports continued elevated readings at home despite adding and increasing the olmesartan. I did suggest adding a diuretic with both the olmesartan and amlodipine as it may help lower her blood pressure and reduce her lower extremity swelling she has been experiencing. All questions, concerns, positive, and negative effects were reviewed and she is in agreement. HCTZ e-scribed. Encouraged the patient to continue to monitor her blood pressure at home. We will continue to monitor. Sep, Anxiety and depression (ICD-10 - F41.9) The patient states she ran out of the burpropion but feels she has been doing well without it and feels the celexa is working well for her. She voiced goals of getting a new job, losing weight, and possibly leaving her which she feels will help her to be able to reduce her stress enough to be able to eventually stop the celexa as well. I advised her to hold off on stopping the celexa until she feels she will be okay without it. She was in agreement. We will continue to monitor. [facility] 11-01-2009 History general Narrative - Reported* Type Description Date Medical History 2006 pelvic exam done Medical History no mammogram Medical History no colonoscopy Medical History no stress test Medical History miscarriage julyaugust 07 Medical History MRI Lumbar Spine 03-29-11; [facility] Medical History UGI; 07-22-11; [facility] Medical History Gallbladder US; 07-22-11 [facility] Medical History 08/06/12 Blood work C BC, CMP, LIpid, HGA1C (5.1) T4, TSH, Medical History 04/2015 Mammogram Medical History hysterectomy 12/17/15 Medical History 04/13/2018 Stress test Medical History 06/2020 EGD and Colonoscopy - Dr Arriola Surgical History right foot toe surgery - toe na il Surgical History bladder sling Surgical History gallbladder removed by Dr. Iliana espinosa 07/15/14 Surgical History hysterectomy ( still has ovarie s) - Dr. Aj 01/04/16 Hospitalization History Childbirth [facility] 11-01-2009 History general Narrative - Reported* Type Description Date Medical History 2006 pelvic exam done Medical History no mammogram Medical History no colonoscopy Medical History no stress test Medical History miscarriage julyaugust 07 009 Medical History MRI Lumbar Spine 03-29-11; [facility] Medical History UGI; 07-22-11; [facility] Medical History Gallbladder US; 07-22-11 [facility] Medical History 08/06/12 Blood work C BC, CMP, LIpid, HGA1C (5.1) T4, TSH, Medical History 04/2015 Mammogram Medical History hysterectomy 12/17/15 Medical History 04/13/2018 Stress test Medical History 06/2020 EGD and Colonoscopy - Dr Arriola Medical History 03/19/2022 Covid + Surgical History right foot toe surgery - toe na il Surgical History bladder sling Surgical History gallbladder removed by Dr. Iliana espinosa 07/15/14 Surgical History hysterectomy ( still has ovarie s) - Dr. Aj 01/04/16 Hospitalization History Childbirth [facility] 11-01-2009 History general Narrative - Reported* Type Description Date Medical History 2006 pelvic exam done Medical History no mammogram Medical History no colonoscopy Medical History no stress test Medical History miscarriage julyaugust 07 009 Medical History MRI Lumbar Spine 03-29-11; [facility] Medical History UGI; 07-22-11; [facility] Medical History Gallbladder US; 07-22-11 [facility] Medical History 08/06/12 Blood work C BC, CMP, LIpid, HGA1C (5.1) T4, TSH, Medical History 04/2015 Mammogram Medical History hysterectomy 12/17/15 Medical History 04/13/2018 Stress test Medical History 06/2020 EGD and Colonoscopy - Dr Arriola Medical History 03/19/2022 Covid + Surgical History right foot toe surgery - toe na il Surgical History bladder sling Surgical History gallbladder removed by Dr. Iliana espinosa 07/15/14 Surgical History hysterectomy ( still has ovarie s) - Dr. Aj 01/04/16 Surgical History Granulomas removed from perinea l area 09/13/2022 Hospitalization History [facility]birth [facility] Other Evaluation + Plan note Future Appointments Appointment Date:12/26/2023 02:45:00 PM Scheduled Provider:Aly Castellanos MD Location:[facility] Appointment Type:Cardiology Follow Up (FT) Future Scheduled Tests Radiology* EC Stress Echo Complete w/ Contrast 10/30/23 * Echo Transthoracic [facility] Future Appointments Appointment Date:12/16/2023 01:00:00 PM Scheduled [facility]: [facility] Type:[facility] Echo Stress ([facility]) Appointment Date:12/26/2023 02:45:00 PM Scheduled Provider:Aly Cast[facility]anos [facility] Type:Cardiology Follow Up (FT) Future Scheduled Tests Radiology* EC Stress Echo Complete, Transthoracic 11/21/23 * EC Stress Echo Complete w/ Contrast 12/16/23 [facility] Future Appointments Appointment Date:12/26/2023 02:45:00 PM Scheduled Provider:Aly Castellanos MD Location:[facility] Appointment Type:Cardiology Follow Up (FT) Future Scheduled Tests Radiology* EC Stress Echo Complete, Transthoracic 11/21/23 [facility] noteNo InformationNortH[facility] Other Evaluation noteNo assessment information available [facility] Work Phone: Evaluation note* Author lAejandra Peng [facility] Authored November 28, 2023 11:49am Sooner if needed, the ER if concerns,The above note written by Alejandra Peng LPN acting as human recorder, note dictated by Dr. Micheal Ocasio [facility] Work Phone: Evaluation note* Author Leanne Gamino [facility] Authored March 02, 2024 3:51p m The above note written by Tal GARNICA acting as human recorder, note dictated by Dr. Micheal Ocasio. [facility] Work Phone: Hospital course Narrative No data available for this section [facility] No data available for this section [facility] No data available for this section [facility] Summary Purpose Family History No Family History Records Found Relationship Condition Age at Onset Recorded Date/T can Not Specified Cerebrovascular accident (CVA) Unknown father Heart disease Unknown father Diabetes mellitus Unknown father Hypertension Unknown Relationship Condition Age at Onset Recorded Date/T can Not Specified Cerebrovascular accident (CVA) Unknown father Heart disease Unknown father Diabetes mellitus Unknown father Hypertension Unknown Diabetes mellitus Unknown grandparent Unknown grandparent Hypertension Unknown grandparent Myocardial infarction Unknown Not Specified Type 2 diabetes mellitus Unknown Relationship Condition Age at Onset Recorded Date/T can mother Cerebrovascular accident (CVA) Unknown father Heart disease Unknown father Diabetes mellitus Unknown father Hypertension Unknown Diabetes mellitus Unknown grandparent Unknown grandparent Hypertension Unknown grandparent Myocardial infarction Unknown mother Type 2 diabetes mellitus Unknown Advance Directives No Advanced Directives Records Found Advance Directive Response Recorded Date/ Time Advance Directives No March 28 5:53pm Advance Directive Response Recorded Date/ Time Advance Directives No March 28 4:53pm Advance Directive Response Recorded Date/ Time Advance Directives No October 25, 2023 10:47am Advance Directive Response Recorded Date/ Time Advance Directives No October 25, 2023 11:47am Reason for Referral Reason consult and treat Diagnosis 1 Chest pain (R07.9) Diagnosis 2 Abnormal ECG (R94.31 ) Diagnosis 3 Obesity, unspecified (E66.9) Diagnosis 4 Hypertension (I10) Referral Organization [facility] Referring Provider First Name Micheal Referring Provider Last Name Dash Referring Provider Specialty Family Prac amanda Referred Organization [facility] Referred Provider Aly Castellanos Referred Address [address] [place], [place],[address] Referred Provider Specialty Cardiology Referral Priority Routine General Notes Andria Reilly 11:25:03 AM >received today, holding referral for note to be locked Andria Reilly 09/08/2023 12:53:36 PM >note is not locked, still holding referral Andria Reilly 09/09/2023 11:43:04 AM >not locked yet Reason CANCELLED consult and treat Diagnosis 1 Recurrent cough (R05 .8) Referral Organization [facility] Referring Provider First Name Micheal Referring Provider Last Name Dash Referring Provider Specialty Family Prac amanda Referred Organization [facility] Pulmonary Dise ase Referred Provider Macey Floyd Referred Address [address],[facility] [address],[place], [place],[address] Referred Provider Specialty Nurse Adrien orellanaonemolly Referral Priority Routine General Notes [facility] 023 10:36:46 AM >Received today and all test have been completed at [facility]. Sent P2P [facility] 10/17/2022 01:25:39 PM >Patient has been scheduled [facility] 11/07/2022 07:45:54 AM >Patient cancelled appt. Stating she will call back to reschedule. Will give her a week and if she is not rescheduled then I will let Dr. Ocasio know and give her another week to reschedule [facility] 11/07/2022 07:49:27 AM >Per incoming referral. Patient is seeing Dr. Lieberman at [facility] and did not want to reschedule. Telephone encounter was sent Reason consult and treat; S OB, Hx of COVID PFT and Chest Xray ordered Diagnosis 1 Shortness of breath (R06.02) Diagnosis 2 History of COVID-19 (Z86.16) Referral Organization [facility] Referring Provider First Name Micheal Referring Provider Last Name Dash Referring Provider Specialty Family Prac amanda Referred Organization [facility] Referred Provider Lavinia Lieberman Referred Address ,[place], [place],[address] Referred Provider Specialty Pulmonary Adele fabian Referral Priority Routine Chief Complaint and Reason for Visit Chief Complaint M35.3 polymyalgia Chief Complaint Sebaceous Cyst Chief Complaint E78.5 R45.86 Chief Complaint Er Recheck Anya/ Chest Pain M25.561 M25.562 Oct Appt F/U HGB A1C Reason for Visit Chest pain Hyperglycemia Hypertension IBS (irritable bowel syndrome) Obesity (BMI 30-39.9) Chief Complaint F/U HGB A1C Amb Documentation Amb Documentation r/s January Reason for Visit Chest pain Hyperglycemia Hypertension IBS (irritable bowel syndrome) Obesity (BMI 30-39.9) BMI 32.0-32.9,adult Obesity Trochanteric bursitis of right hip Chief Complaint Amb Documentation Amb Documentation r/s January Apt adipex Reason for Visit BMI 32.0-32.9,adult Obesity Trochanteric bursitis of right hip Obesity Dysuria BMI 31.0-31.9,adult Chief Complaint Amb Documentation r/s January Apt adipex Amb Documentation r63.5 r53.83 e03.9 Reason for Visit BMI 32.0-32.9,adult Obesity Trochanteric bursitis of right hip Obesity Dysuria BMI 31.0-31.9,adult Additional Source Comments INFORMATION SOURCE (unrecogn ized section and content) DATE CREATED AUTHOR 03/31/2018 [facility] DATE CREATED AUTHOR AUTHOR'S ORGANIZ ATION 04/15/2018 [facility] DATE CREATED AUTHOR AUTHOR'S ORGANIZ ATION 04/15/2018 [facility] DATE CREATED AUTHOR AUTHOR'S ORGANIZ ATION 11/02/2022 [facility] dical Specialist DATE CREATED AUTHOR AUTHOR'S ORGANIZ ATION 01/29/2023 [facility] DATE CREATED AUTHOR AUTHOR'S ORGANIZ ATION 01/17/2024 [facility] dical Specialists EPIC DATE CREATED AUTHOR AUTHOR'S ORGANIZ ATION 01/20/2024 [facility] DATE CREATED AUTHOR AUTHOR'S ORGANIZ ATION 04/09/2024 [facility] REASON FOR VISIT (unrecogniz ed section and content) clinical FYIClinicalfollow u p HTNClinicalBACK PAIN1 month Follow up difficulty sleepingClinicalClinical/ LM to call office backClinical2 month Follow upER noticeclinicalclinicalclinicalClinicalFOLLOW UP cougher f/u ([place])- pain in [id number] days f/u per bpkRefill6 week follow upleg pain (both)clinicalClinicalClinical Acute IllnessPulmonary Referral UpdateBODY ACHES, NAUSEA, FEVER, COUGH, HEADACHE, SINUS CONGESTIONNo Informationrestless legs and acheyClinical3 month Follow up weight management, f/u anxiety /depressionOzempic PA1 month Follow upWegovy PAFISHER ESPERANZA ER F/U (02/04); COLITISRefillsRefillsClinicalphysical exam- forms in upcoming folderlabRefillMedication Dosage4-5 week follow upclinicER applications coordinator recheck [place]/ Chest painClinicalJan apptJan apptClinical Care Teams (unrecognized sec tion and content) Team Status: Active Member Role Status Patrick Ocasio DO Primary Care Provider Active Team Status: Active Member Role Status Patrick Ocasio DO Primary Care Provider Active Sta rt: December 08, 2023 NAHUN Lennon Attending Provider Active Start: December 08, 2023 Team Status: Active Member Role Status Patrick Ocasio DO Primary Care Provider Active Sta rt: January 20, 2024 NAHUN Lennon Attending Provider Active Start: January 20, 2024 Team Status: Inactive Member Role Status Patrick Ocasio DO Primary Care Provide r, Attending Provider Active Start: January 28, 2024 End: January 28, 2024 Team Status: Inactive Member Role Status Patrick Ocasio DO Primary Care Provide r, Attending Provider Active Start: March 02, 2024 End: March 02, 2024 Team Status: Inactive Member Role Status Patrick Ocasio DO Primary Care Provider, Attending Provi shona Active Team Status: Inactive Member Role Status Patrick Ocasio DO Primary Care Provider Active Maycol Israel DO Attending Provider Active Team Status: Inactive Member Role Status Patrick Ocasio DO Attending Provider Active Start: September 05, 2023 End: September 05, 2023 Team Status: Inactive Member Role Status Patrick Ocasio DO Primary Care Provider Active Sta rt: September 05, 2023 End: September 05, 2023 Lamont Martin DO Attending Provider Active Sta rt: September 05, 2023 End: September 05, 2023 Team Status: Inactive Member Role Status Dates Micheal Ocasio DO Attending Provider Active Start: October 09, 2023 End: October 09, 2023 Team Status: Inactive Member Role Status Dates Micheal Ocasio DO Primary Care Provide r, Attending Provider Active Start: November 28, 2023 End: November 28, 2023 Team Status: Active Member Role Status Dates Micheal Ocasio , DO Primary Care Provider Active Sta rt: March 22, 2024 NAHUN Lennon Attending Provider Active Start: March 22, 2024 Team Status: Inactive Member Role Status Dates Micheal Ocasio , DO Primary Care Provide r, Attending Provider Active Start: April 07, 2024 End: April 07, 2024 Goals (unrecognized section and content) Goals may be documented in a n alternate section FOR RECORDS PERTAINING TO PATIENTS WHO ARE OR HAVE BEEN ENROLLED IN A CHEMICAL DEPENDENCY/SUBSTANCEABUSE PROGRAM, SOME INFORMATION MAY BE OMITTED. This clinical summary was aggregated from multiple sources. Caution should be exercised in using it in the provision of clinical care. This summary normalizes information from multiple sources, and as a consequence, information in this document may materially change the coding, format and clinical context of patient data. In addition, data may be omitted in some cases. CLINICAL DECISIONS SHOULD BE BASED ON THE PRIMARY CLINICAL RECORDS. [employer] provides no warranty or guarantee of the accuracy or completeness of information in this document.
--- NOTE | 2024-04-20 13:21 | XR_ITS ---
The [address] [address] Patient Name: BRANDON LONG MRN: [id number] date: 1975 Sex: F Assigned Patient Location: ER Current Patient Location: ER Accession/Order Number: [id number] Exam Date: 04/20/2024 13:30 Report Date: 04/20/2024 13:57 At the request of: LARA HOLDEN Procedure: XR chest 1V EXAMINATION: XR chest 1V HISTORY: cough COMPARISON: 08/28/2023 TECHNIQUE: AP portable FINDINGS: LUNGS: No significant pulmonary parenchymal abnormalities. Low lung volumes VASCULATURE: No increased pulmonary vasculature. PLEURA: No pneumothorax, effusion, or pleural thickening. CARDIAC: No cardiomegaly or cardiac silhouette abnormality. MEDIASTINUM: No visible mass or adenopathy. BONES: No fracture or visible bone lesion. OTHER: Negative. XR/XR chest 1V IMPRESSION: Low volume exam, clear lungs Electronically authenticated by: CHARLES AMADO Date: 04/20/2024 13:57
[2024-04-20 13:28] LABS: Internal Control Within Normal Limits; Strep A Antigen Screen Negative
[2024-04-20] MEDS: PREDNISONE 20 MG TABLET 40 MG PO (13:30)
[2024-04-20 13:32] LABS: Internal Control Within Normal Limits; SARS-CoV-2 Ag NEGATIVE (NEGATIVE)
[2024-04-20] MEDS: IPRATROPIUM/ALBUTEROL SULFATE 3 ML AMPUL.NEB IH (13:33)
[2024-04-20 13:34] VITALS: PULSE 120; O2SAT 96
--- NOTE | 2024-04-20 14:09 | ED_ITS ---
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 history of congested nose and bodyaches, with a mild cough, patient have no shortness of breath but some tightness she does have history of asthma, patient also has been exposed to her coworker who had a viral illness recently The patient have no diarrhea no nausea no vomiting but she does have a body ache and joint pain No chest pain Related Data Home Medications ?Medication ?Instructions ?Recorded ?Confirmed olmesartan 40 mg tablet 40 mg PO DAILY 07/11/23 08/28/23 omeprazole 40 mg capsule,delayed 40 mg PO DAILY 07/11/23 08/28/23 release ropinirole 1 mg tablet 1 mg PO BEDTIME 07/11/23 08/28/23 spironolactone 25 mg tablet 25 mg PO DAILY 07/11/23 08/28/23 amlodipine 5 mg tablet 5 mg PO DAILY 08/28/23 08/28/23 Allergies Allergy/AdvReac Type Severity Reaction Status Date / Time Penicillins Allergy Verified 07/11/23 20:01 sulfamethoxazole Allergy Verified 07/11/23 20:01 [From Bactrim] trimethoprim [From Bactrim] Allergy Verified 07/11/23 20:01 vancomycin Allergy Verified 07/11/23 20:01 Review of Systems ROS Status of ROS 10 or more systems reviewed and unremark able except as noted in history and below PFSH PFS Social History Smoking status: Former smoker Exam Narrative Exam Narrative: Nurses notes and vital signs reviewed and patient is not hypoxic. General: Well-appearing and in no apparent distress. Skin: Warm, dry, no pallor noted. No rash. Head: Normocephalic, atraumatic. Neck: Supple, non-tender. Eye: Pupils are equal, round and EOMI. No scleral icterus. Ears, Nose, Mouth, and Throat: TM are clear, no nasal mucosal hypertrophy. Oral mucosa is moist, no posterior oropharynx erythema, uvula is mid-line Cardiovascular: Regular Rate and Rhythm without murmur, gallop or rub. Respiratory: No accessory muscle use or respiratory distress. Lungs are clear to auscultation, no wheezing, rales or rhonchi Chest Wall: no tenderness Back: No midline thoracic or lumbar vertebral tenderness. No CVA tenderness Musculoskeletal: normal ROM, no calf or popliteal tenderness, no lower extremity edema/swelling GI: Abdomen is soft, non-distended. Normal bowel sounds. No masses appreciated. No tenderness to palpation. No rebound, guarding, or rigidity noted. Neurological: A&O x4. No cranial nerve dysfunction observed. No truncal ataxia. Moves all extremities. Sensation intact. Psychiatric: Cooperative and interactive. Normal mood and affect. Constitutional Vital Signs, click to edit/add: Last Vital Signs Temp 99.9 F 04/20/24 13:06 Pulse 120 H 04/20/24 13:34 Resp 16 04/20/24 13:06 BP 132/91 04/20/24 13:06 Pulse Ox 96 04/20/24 13:34 O2 Del Method Room Air 04/20/24 13:34 Course Vital Signs Vital signs: Vital Signs Temperature 99.9 F 04/20/24 13:06 Pulse Rate 109 H 04/20/24 13:06 Respiratory Rate 16 04/20/24 13:06 Blood Pressure 132/91 04/20/24 13:06 Pulse Oximetry 96 04/20/24 13:06 Oxygen Delivery Method Room Air 04/20/24 13:06 Temperature 99.9 F 04/20/24 13:06 Pulse Rate 120 H 04/20/24 13:34 Respiratory Rate 16 04/20/24 13:06 Blood Pressure 132/91 04/20/24 13:06 Pulse Oximetry 96 04/20/24 13:34 Oxygen Delivery Method Room Air 04/20/24 13:34 MDM - URI/Sore Throat MDM Narrative Medical decision making narrative: Other than the fact the patient started coughing when asked to be taking a deep breath the patient did not have any wheezing The patient was treated only with 1 dose of prednisone in the ER and breathing treatment to help in resolving any bronchospasm COVID and strep are negative but the patient presentation is mostly secondary to viral illness Chest x-ray showed no acute pathology Patient was discharged home with supportive care and rest from work for the next 2 days The patient is to follow up with primary care physician in next 2-3 days or to return to the emergency department should any of the signs or symptoms worsen or new symptoms develop. The patient agrees with the following Diagnosis and Treatment plan and the patient will be discharged home. Lab Data Labs: Lab Results 04/20/24 04/20/24 Range/Units 13:08 13:10 SARS-CoV-2 Ag (CV2AG) Negative (NEGATIVE) Streptococcus Screen Negative Discharge Plan Discharge Stand Alone Forms: Portal Instructions Chief Complaint: Upper Respiratory Infection Clinical Impression: Acute viral syndrome Patient Disposition: Home, Self-Care Time of Disposition Decision: 14:06 Condition: Good Prescriptions / Home Meds: No Action ropinirole 1 mg tablet 1 mg PO BEDTIME omeprazole 40 mg capsule,delayed release(DR/EC) 40 mg PO DAILY spironolactone 25 mg tablet 25 mg PO DAILY olmesartan 40 mg tablet 40 mg PO DAILY amlodipine 5 mg tablet 5 mg PO DAILY Print Language: Stateless Instructions: Viral Syndrome (ED) Referrals: Physician,Non-Staff, MD [Primary Care Provider] - 1 week
[2024-04-20] MEDS: ACETAMINOPHEN 325 MG TABLET 650 MG PO (14:16)
[2024-04-20 14:19] VITALS: BP 130/78; PULSE 108; O2SAT 97
== END 2024-04-20 14:19 | disposition home or self-care (01) ==
PROVIDERS: Emergency Provider Emergency Medicine
DX: B34.9 Viral infection, unspecified (principal); Z20.822 Contact with and (suspected) exposure to COVID-19; Z87.891 Personal history of nicotine dependence; J45.909 Unspecified asthma, uncomplicated
CPT/HCPCS: 71045; 87070; 87811; 87880; 94640; 99284; J7512

== ENCOUNTER 2024-11-09 14:11 | Emergency (ER) | payer BC, OTHER, SELFPAY ==
[2024-11-09 14:16] VITALS: BP 134/95; PULSE 113; TEMP 37.7; O2SAT 96; BMI 34.9
--- OUTSIDE RECORDS SUMMARY | 2024-11-09 14:31 | XMS_ITS | CCD ---
Author Organization [facility] Care Team Providers Care 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 Name Role Phone Steph Causey Unavailable Unavailable Family Physician Unavailable Unavailable Jessica vailable Family Physician Unavailable Unavailable Jessica vailable UNKNOWN, PROVIDER Unavailable Unavailable MICHEAL BOWLING Unavailable Unavailable Micheal Bowling Unavailable Dash, DO Burton Primary Care Provider Kunalix, DO Micheal Attending Provider Guys, DO Burton Primary Care Provider DO Maycol Clark Attending Provider Macey Floyd Unavailable Macey Licona Unavailable DR MICHEAL BOWLING Primary Care Unavailable MIKE GTZ Admitting Unavailable [...] ., DR CUENCA Consulting Unavailable DASH, DR BURTON Primary Care Unavailable DIAB ., LARA Admitting Unavailable DIAB ., LARA Attending Unavailable DIAB ., LARA Consulting Unavailable DASH, DR BURTON Primary Care Unavailable MARKER ., DR BURRELL Admitting Unavailable MARKER ., DR BURRELL Attending Unavailable MARKER ., DR BURRELL Consulting Unavailable TYSHAWN SILVESTRE Consulting Unavailable MICHEAL BOWLING Primary Care Physician Guys, DO Burton Primary Care Provider Kuns, DO Burton Attending Provider Barbara Dasilva Unavailable Unavailable Dash, DO Burton Primary Care Provider [phone] DO Lamont Long Attending Provider [phone] Brown NEGRO Consulting Unavailable Aly Castellanos Attending Unavaila Aly Hernandez Referring Unavaila ble lAy Castellanos Admitting Unavaila ble Brown NEGRO Consulting Unavailable Brown NEGRO Consulting Unavailable Gila Beasley Attending Unavailable NONE, XXXX Referring Unavailable Aly Castellanos Attending Unavaila ble NONE, XXXX Referring Unavailable Aly Castellanos Admitting Unavaila ble Aly Castellanos Attending Unavaila ble Aly Castellanos Admitting Unavaila ble Brown NEGRO Consulting Unavailable Aly Castellanos Attending Unavaila ble Aly Castellanos Referring Unavaila ble Brown NEGRO Consulting Unavailable Brown NEGRO Consulting Unavailable DO Micheal Bowling Primary Care Provider DO Micheal Bowling Attending Provider [phone] LAMONT LONG Attending Unavailable LAMONT LONG Referring Unavailable PACO GROSS Attending Unavailable LAMONT LONG Referring Unavailable LAMONT LONG Attending Unavailable LAMONT LONG Attending Unavailable LAMONT LONG Referring Unavailable MAYCOL CLARK Referring Unavailable WILLIAM LIEBERMAN Attending Unavailable LAMONT LONG Referring Unavailable MAYCOL CLARK Attending Unavailable LAN AVALOS Attending Unavailable Micheal Bowling MD Primary Care Provider Micheal Bowling DO Primary Care Provider Micheal Bowling DO Attending Provider Micheal Bowling Attending Unavailable Micheal Bowling Primary Care Unavailable Micheal Bowling Admitting Unavailable Micheal Bowling Attending Unavailable Micheal Bowling Primary Care Unavailable Micheal Bowling Admitting Unavailable Allergies Allergy Classification Reported Allergen(s) Allergy Type Date of Onset Reaction(s) Facility (20 sources) Acetaminophen / traMADol Drug Allergy jittery [facility] Other (20 sources) Amoxicillin / Clavulanate Drug Allergy stomache upset [facility] Other (20 sources) Azithromycin Drug Allergy vomiting [facility] Other (20 sources) cefdinir Drug Allergy hives [facility] Other (20 sources) cyclobenzaprine Drug Allergy [facility] Other (20 sources) methylPREDNISolone Drug Allergy 024 GI intolerance [facility] (20 sources) Sulfamethoxazole / Trimethoprim; Translations: [sulfamethoxazole-tr imethoprim] Drug Allergy 023 stomach cramping, vomiting [facility] (20 sources) telithromycin Drug Allergy [facility] Other (20 sources) Adipex Propensity to adverse reactions GI upset, Rapid heart rate [facility] Other (20 sources) Vanco Propensity to adverse reactions [facility] Other (20 sources) Azithromycin; Translations: [azithromycin] Drug Allergy 020 Nausea, vomiting, Nausea, vomiting [facility] (16 sources) Sulfamethoxazole Drug Allergy 020 Nausea, Nausea, stomach cramping [facility] (16 sources) Trimethoprim Drug Allergy 020 Nausea, Nausea, stomach cramping [facility] (20 sources) Vancomycin; Translations: [vancomycin] Drug Allergy 016 Rash, hives, Rash, hives [facility] (20 sources) Acetaminophen / traMADol Drug Allergy [facility] Other (12 sources) Amoxicillin / Clavulanate Drug Allergy stomache upset [facility] Other (1 source) Azithromycin Drug Allergy [facility] (1 source) Penicillin Drug Allergy [facility] (2 sources) Sulfamethoxazole / Trimethoprim; Translations: [Bactrim] Drug Allergy [facility] (1 source) Sulfonamides (Antibiotic) Drug allergy (disorder) [facility] (6 sources) Amoxicillin Drug Allergy stomach upset [facility] (12 sources) cefdinir Drug Allergy Hives [facility] (12 sources) Clavulanate Drug Allergy GI intolerance [facility] (12 sources) cyclobenzaprine Drug Allergy [facility] (12 sources) Phentermine Drug Allergy Rapid heart rate [facility] (9 sources) telithromycin Drug Allergy [facility] (12 sources) traMADol Drug Allergy [facility] (11 sources) Betamethasone Drug Allergy polyarthralgia [facility] (3 sources) Penicillins Drug Allergy 023 [facility] Work Phone: Medications Current Medications Medication Drug Class(es) Dates [...] once a week for 28 days Active [id number] 200 actuat albuterol 0.09 mg/actuat metered dose inhaler (20 sources) beta2-Adrenergic Agonist Start: 11-27-2023 take 2 puff(s) by mouth every four hours as needed Albuterol Sulfate (Ventolin Hfa) 90 mcg/actuation HFA aerosol inhaler Active 2 INH INHALATION November 27, 2023 12:00am FreeTextSig: INHALE 2 PUFFS BY MOUTH EVERY 4 HOURS NEEDED Inhalation; Note: Source Status: Taking; Refills: 1; Provider: Dash Abraham albuterol HFA 90 mcg/act inhaler every 4 (four) hours. Active take 2 puff(s) by mo uth every four hours as needed Ventolin HFA 108 (90 Base) MCG/ACT INHAL E 2 PUFFS BY MOUTH EVERY 4 HOURS NEEDED Inhalation Active amLODIPine 5 mg oral tablet (20 sources) Dihydropyridine Calcium Channel Milton Start: 01-29-2022 take 1 tablet by mouth once daily Amlodipine 5 mg tablet Active 5 MG PO Daily November 27, 2023 12:00am FreeTextSi tablet Orally Once a day; Note: [...] Start: 01-29-2022 take 2 tablets by mo ut in the morning, then take 1 tablet by mouth in the evening amLODIPine Besylate 2.5 MG 2 tabs AM and 1 tab PM Orally as directed Jan, Active Start: 05-31-2020 End: 11-27-2023 take 1 tablet by mouth once daily Amlodipine 2.5 mg Tablet Discontinued 2.5 MG PO Daily May 30, 2020 11:00pm November 27, 2023 4:44pm Start: 09-06-2019 take 1 tablet by jordin th every twelve hours amLODIPine Besylate 2.5 MG 1 tablet Orally BID Sep, Active amoxicillin 875 mg / clavulanate 125 mg oral tablet (4 sources) Penicillin-class Antibacterial Start: 02-04-2023 End: 02-14-2023 take 1 tablet by mouth every twelve hours Amoxicillin-Pot Clavulanate 875-125 MG 1 tablet Orally every 12 hrs February, Active 120 actuat budesonide 0.16 mg/actuat / formoterol fumarate 0.0048 mg/actuat / glycopyrrolate 0.009 mg/actuat metered dose inhaler (8 sources) Corticosteroid, beta2-Adrenergic Agonist Start: 04-15-2022 take 2 puff(s) by inhalation twice daily Breztri Aerosphere 160-9-4.8 MCG/ACT 2 puffs Inhalation Twice a day Apr, Active End: 09-08-2024 Wkmyuxv-Opesthosgmm-Kxrzgvtu ol (Breztri Aerosphere) 160-9-4.8 MCG/ACT aerosol Breztri Aerosphere 09/08/2024 Discontinued dicyclomine hydrochloride 10 mg oral capsule (4 [...] Active Start: 10-18-2021 take 1 capsule by mo [facility] every twelve hours Doxycycline Hyclate 100 MG 1 capsule Orally Twice a day for 10 day(s) Oct, Active DULoxetine 30 mg delayed release oral capsule (2 sources) Serotonin and Norepinephrine Reuptake Inhibitor Start: 10-21-2024 take 1 capsule by mouth once daily Duloxetine (Cymbalta) 30 mg capsule,delayed release(DR/EC) Active 30 MG PO Daily October 21, 2024 12:00am escitalopram 10 mg oral tablet (4 sources) Serotonin Reuptake Inhibitor Start: 06-16-2023 take 1 tablet by mouth every twenty-four hours Escitalopram Oxalate 10 MG 1 tablet Orally Once a day for 30 days Jun, Active 30 actuat fluticasone furoate 0.1 mg/actuat / umeclidinium 0.0625 mg/actuat / vilanterol 0.025 mg/actuat dry powder inhaler (2 sources) Anticholinergic, Corticosteroid, beta2-Adrenergic Agonist Start: 05-23-2022 take 1 puff(s) by inhalation once daily Trelegy Ellipta 100-62.5-25 MCG/INH 1 puff Inhalation Once [...] a day for 90 days Sep, Active linaclotide 0.072 mg oral capsule (9 sources) Guanylate Cyclase-C Agonist Start: 08-26-2024 take 1 capsule by mouth once daily Linaclotide (Linzess) 72 mcg capsule Active 72 MCG PO Daily August 26, 2024 12:00am Start: 01-17-2023 Linzess 72 MCG 1 capsule at least 30 minutes before the first meal of the day on an empty stomach Orally Once a day for 30 days Samples Jan, Not-Taking lisinopril 2.5 mg oral tablet (2 sources) Angiotensin Converting Enzyme Inhibitor Start: 07-30-2017 take 2.5 mg by mouth once daily Lisinopril Active 2.5 MG PO Daily July 30, 2017 12:00am Magnesium (3 sources) MAGNESIUM PO Take by mouth Active methylPREDNISolone 4 mg oral tablet (2 sources) Corticosteroid Start: 06-12-2022 Medrol 4 MG as directed Orally Jun, Active Start: 05-23-2022 Medrol 4 MG as directed Orally as directed May, Active omeprazole 40 mg delayed release oral capsule (20 sources) Proton Pump Inhibitor Start: 05-31-2020 End: 03-02-2024 take 1 capsule by mouth once daily Omeprazole 40 mg capsule,delayed release(DR/EC) Active 40 MG PO Daily March 02, 2024 2:18pm ondansetron 4 mg disintegrating oral tablet (20 sources) Serotonin-3 Receptor Antagonist Start: 11-27-2023 End: 10-14-2024 take 1 tablet by mouth every eight hours as needed for nausea and vomiting Ondansetron 4 mg tablet,disintegratin g Active 4 MG PO Every 8 hours as needed for nausea and vomiting October 14, 2024 10:01am Start: 02-04-2023 take 1 tablet by jordin th every eight hours as needed Ondansetron 4 [...] See Instructions Start Date: 12/16/23 Status: Ordered rOPINIRole 1 mg oral tablet (20 sources) Nonergot Dopamine Agonist Start: 11-27-2023 take 1 tablet by mouth once daily Ropinirole 1 mg tablet Active 1 MG PO Daily November 27, 2023 12:00am FreeTextSi tablet Orally Once a day; Note: [...] PO Daily at bedtime November 27, 2023 12:00am FreeTextSi tablet as needed Orally QHS; Note: [...] Drug Class(es) Dates Sig (Normalized) Sig (Original) azithromycin 250 mg oral tablet (12 sources) Macrolide Antimicrobial Start: 04-22-2024 End: 09-08-2024 azithromycin (Zithromax) 250 MG tablet TAKE 2 TABLETS BY MOUTH TODAY, THEN TAKE 1 TABLET DAILY FOR 4 DAYS DIRECTED 04/22/2024 09/08/2024 Discontinued Start: 03-22-2024 End: 08-26-2024 Azithromycin (Zithromax Z-Pa k) 250 mg tablet Discontinued 0 PO .COMPLEX June 21, 2024 11:00pm August 26, 2024 2:34pm For 250 mg dose pack: take 500 mg today (day 1), then 250 mg for 4 days (days 2-5) PO betamethasone 0.5 mg/ml topical cream (11 sources) Corticosteroid Start: 12-13-2022 Betamethasone Dipropionate 0.05 % 1 application Externally Once a day Dec, Not-Taking betamethasone 0.5 mg/ml / clotrimazole 10 mg/ml topical cream (10 sources) Azole Antifungal, Corticosteroid Start: 03-02-2024 End: 09-08-2024 clotrimazole-betameth asone (Lotrisone) cream Twice daily 03/02/2024 09/08/2024 Discontinued Start: 03-02-2024 End: 08-26-2024 Clotrimazole-Betamethasone 1 -0.05 % cream Discontinued 1 APPLIC TOPICAL Twice daily March 01, 2024 11:00pm August 26, 2024 2:34pm 24 hr buPROPion hydrochloride 150 mg extended release oral tablet (14 sources) Aminoketone Start: 01-28-2019 End: 11-27-2023 take 1 tablet by mouth once daily Bupropion Hcl 150 mg tablet extended release 24 hr Discontinued 150 MG PO Daily May 30, 2020 11:00pm November 27, 2023 4:45pm cephalexin 500 mg oral capsule (11 sources) Cephalosporin Antibacterial Start: 09-13-2022 End: 11-27-2023 take 1 capsule by mouth every six hours Cephalexin 500 mg capsule Discontinued 500 MG PO Q6H 28 September 13, 2022 12:00am November 27, 2023 4:45pm citalopram 20 mg oral tablet (20 sources) Serotonin Reuptake Inhibitor Start: 06-19-2019 take 1 tablet by mouth every twenty-four hours Citalopram Hydrobromide 20 MG 1 tablet Orally Once a day Jun, Not-Taking Start: 07-30-2017 End: 11-27-2023 take 1 tablet by mouth once daily Citalopram (Celexa) 10 mg Tablet Discontinued 10 MG PO Daily July 29, 2017 11:00pm November 27, 2023 4:45pm furosemide 20 mg oral tablet (1 source) [...] Toradol per 15 mg Oct, 2 mL lubiprostone (20 sources) Chloride Channel Activator Start: 11-28-2023 End: 08-26-2024 take 1 capsule by mouth twice daily as needed Lubiprostone 24 mcg capsule Discontinued 24 MCG PO Twice daily as needed November 28, 2023 11:30am August 26, 2024 2:35pm FreeTextSi capsule with food and water Orally Twice a day as needed; Note: Source Status: Taking; Provider: Brayan Saavedra Start: 11-28-2023 take 1 capsule by [facility] twice daily at mealtime as needed Lubiprostone Active 24 MCG PO Twice daily November 28, 2023 12:30pm FreeTextSi capsule with food and water Orally Twice a day as needed; Note: Source Status: Taking; Provider: Brayan Saavedra Start: 11-28-2023 take 1 capsule by mo uth twice daily at mealtime as needed Lubiprostone Active 24 MCG PO Twice daily November 28, 2023 11:30am FreeTextSi capsule with food and water Orally Twice a day as needed; Note: Source Status: Taking; Provider: Brayan Saavedra Start: 11-27-2023 End: 11-28-2023 take 1 capsule by mouth twice daily at mealtime as needed Lubiprostone 24 mcg capsule Discontinued MCG PO November 27, 2023 12:00am [...] Start: 06-09-2020 take 1 capsule by mo uth twice daily at mealtime as needed Amitiza 24 MCG 1 capsule with food and water Orally Twice a day as needed Jun, Active Start: 06-09-2020 take 1 capsule by mo uth twice daily at mealtime as needed Amitiza 24 MCG 1 capsule with food and water Orally Twice a day as needed Jun, Active montelukast 10 mg oral tablet (20 sources) Leukotriene Receptor Antagonist Start: 11-27-2023 End: 01-28-2024 take 1 tablet by mouth once daily at bedtime Montelukast (Singulair) 10 mg tablet Discontinued 10 MG PO Daily at bedtime November 27, 2023 12:00am January 28, 2024 8:50am FreeTextSi tablet Orally QHS; Note: Source Status: Not-TakingundefinedPRN; Provider: Dash Abraham Start: 2021 take 1 tablet by jordin th once daily at bedtime Singulair 10 MG 1 tablet Orally QHS Dec, Not-Taking/PRN olmesartan medoxomil 40 mg oral tablet (20 sources) Angiotensin 2 Receptor Milton Start: 09-13-2022 End: 11-27-2023 take 1 tablet by mouth once daily Olmesartan 20 mg Tablet Discontinued 20 MG PO Daily September 13, 2022 12:00am November 27, 2023 4:44pm Start: 05-09-2021 End: 12-08-2023 take 1 tablet by mouth once daily Olmesartan 40 mg tablet Discontinued 40 MG PO Daily November 27, 2023 12:00am December 08, 2023 10:58am FreeTextSi tablet Orally Once a day; Note: Source Status: Continue; Provider: Dash Abraham 24 hr oxybutynin chloride 10 mg extended release oral tablet (20 sources) Cholinergic Muscarinic Antagonist Start: 11-27-2023 End: 01-28-2024 take 1 tablet by mouth once daily Oxybutynin Chloride 10 mg tablet extended release 24hr Discontinued 10 MG PO Daily November 27, 2023 12:00am January 28, 2024 8:51am FreeTextSi tablet Orally Once a day; Note: Source Status: Taking; Provider: Dash Burton ( ) take 1 tablet by jordin th every twenty-four hours oxyBUTYnin Chloride ER 10 MG 1 tablet Orally Once a day Active phentermine hydrochloride 37.5 mg oral tablet (15 sources) Sympathomimetic Amine Anorectic Start: 01-28-2024 End: 04-27-2024 take 1 tablet by mouth once daily 30 minutes after breakfast Phentermine 37.5 mg tablet Discontinued 37.5 MG PO Daily March 02, 2024 2:48pm April 27, 2024 2:35pm must administer 30 minutes before or 1-2 hours after breakfast predniSONE 10 mg oral tablet (14 sources) Start: 08-26-2024 End: 10-21-2024 take 1 tablet by mouth once daily Prednisone 10 mg tablet Discontinued 10 MG PO .COMPLEX 15 August 26, 2024 12:00am October 21, 2024 1:41pm 10 mg orally 1 tab twice a day x 5 days , 1 tab once a day x 5 days; see taper instructions Start: 04-27-2024 End: 10-21-2024 Prednisone 20 mg tablet Disc ontinued 20 MG PO As Directed August 26, 2024 2:35pm October 21, 2024 1:41pm BID x 5 days then daily for 5 days Start: 04-29-2022 take 1 tablet by jordin th twice daily, then take 1 tablet by [...] Jan, Not-Taking semaglutide 7 mg oral tablet (18 sources) Start: 11-27-2023 End: 11-28-2023 Semaglutide 7 mg tablet Discontinued 7 MG PO Daily November 27, 2023 12:00am November 28, 2023 11:32am FreeTextSi tablet at least 30 minutes before [...] 1 pen for starting dose Dec, Active sertraline 25 mg oral tablet (8 sources) Serotonin Reuptake Inhibitor Start: 04-27-2024 End: 08-26-2024 take 1 tablet by mouth once daily Sertraline (Zoloft) 25 mg tablet Discontinued 25 MG PO Daily April 26, 2024 11:00pm August 26, 2024 2:35pm Start: 04-26-2024 End: 09-08-2024 sertraline (Zoloft) 50 MG ta blet Indications: Emotional dysregulation First 4 pills split in half. (8 days). Take 1 pill daily there after. 30 tablet 1 04/26/2024 09/08/2024 Discontinued spironolactone 25 mg oral tablet (20 sources) Aldosterone Antagonist Start: 02-07-2022 End: 01-20-2024 take 1 tablet by mouth once daily Spironolactone 25 mg tablet Discontinued 25 MG PO Daily September 13, 2022 12:00am January 20, 2024 3:55pm traMADol hydrochloride 50 mg oral tablet (11 sources) Opioid Agonist Start: 09-13-2022 End: 11-27-2023 take 1 tablet by mouth every four hours as needed for pain Tramadol 50 mg Tablet Discontinued 50 MG PO Q4H as needed for Pain Scale 1 - 4 20 7 September 13, 2022 12:00am November 27, 2023 4:45pm traZODone hydrochloride 50 mg oral tablet (20 sources) Serotonin Reuptake Inhibitor Start: 11-27-2023 End: 01-28-2024 take 1 tablet by mouth once daily at bedtime Trazodone 50 mg tablet Discontinued 50 MG PO Daily at bedtime November 27, 2023 12:00am January 28, 2024 8:51am FreeTextSi tablet at bedtime as needed Orally Once a day; Note: Source Status: Not-Takingundefined PRN; Provider: Dash Abraham Start: 11-07-2021 take 1 tablet by jordin th every twenty-four hours traZODone HCl 50 MG [...] venlafaxine 37.5 mg extended release oral capsule (17 sources) Serotonin and Norepinephrine Reuptake Inhibitor Start: 11-27-2023 End: 01-28-2024 take 1 capsule by mouth once daily at mealtime Venlafaxine 37.5 mg capsule,extended release 24hr Discontinued 37.5 MG PO Daily November 27, 2023 12:00am January 28, 2024 8:51am FreeTextSi capsule with food Orally Once a day; Note: Source Status: Not-TakingundefinedPRN; Provider: Dash Abraham Start: 07-24-2023 take 1 capsule by [facility] every twenty-four hours Venlafaxine HCl ER 37.5 MG 1 capsule with food Orally Once a day Jul, Not-Taking/PRN Problems Active Problems Problem Classification Problem Date Documented Da te Episodic/Chronic Abdominal pain (11 sources) Abdominal pain; Translations: [Unspecified abdominal pain] 09-13-2022 Episodic Adjustment disorders (20 sources) Family tension; Translations: [Reaction to severe stress, unspecified] Onset: 2 Resolved: 2 Chronic Administrative/social admission (1 source) Encounter for examination for admission to educational institution Episodic Anxiety disorders (20 sources) Mixed anxiety and depressive disorder; Translations: [Anxiety disorder, unspecified] Onset: 1 Resolved: 1 Chronic Asthma (3 sources) Severe persistent asthma; Translations: [Severe persistent asthma, uncomplicated] Onset: 4 04-19-2024 Chronic Cardiac dysrhythmias (1 source) Tachycardia, unspecified Episodic Diabetes mellitus without complication (20 sources) Hyperglycemia; Translations: [Hyperglycemia, unspecified] Onset: 4 Episodic Disorders of lipid metabolism (20 sources) Hyperlipidemia; Translations: [Hyperlipidemia, unspecified] Onset: 4 Chronic Disorders of teeth and jaw (16 [...] Genitourinary symptoms and ill-defined conditions (3 sources) Urge incontinence of urine; Translations: [Urge incontinence] Onset: 4 04-19-2024 Chronic Genitourinary symptoms and ill-defined conditions (4 sources) Frequency of micturition; Translations: [Dysuria] Episodic Headache; including migraine (4 sources) Migraine, unspecified, not intractable, without status migrainosus; Translations: [Migraine] Onset: 2 04-19-2024 Chronic Immunizations and screening for infectious disease (1 source) Contact with and (suspected) exposure to other viral communicable diseases Episodic Mood disorders (13 sources) Mood swings; Translations: [Unspecified mood [affective] disorder] Onset: 4 Chronic Mood disorders (13 sources) Mood swings; Translations: [Emotional lability] Episodic Nausea and vomiting (6 sources) Nausea with vomiting, unspecified; Translations: [Nausea] Onset: 2 Episodic Noninfectious gastroenteritis (2 sources) Noninfectious enteritis; Translations: [Noninfective gastroenteritis and colitis, unspecified] Onset: 3 Episodic Nonmalignant breast conditions (6 sources) Fibrocystic change of left breast; Translations: [Diffuse cystic mastopathy of left breast] Onset: 4 04-19-2024 Chronic Nonspecific chest pain (20 sources) Chest pain; Translations: [Chest pain, unspecified] Episodic Other aftercare (1 source) 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; Translations: [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] Onset: 3 Episodic Other bone disease and musculoskeletal deformities (19 sources) Somatic dysfunction of rib; Translations: [Segmental and somatic dysfunction of rib cage] 08-26-2024 Episodic Other bone disease and musculoskeletal deformities (19 sources) Somatic dysfunction of lumbar region; Translations: [Segmental and somatic dysfunction of lumbar region] 08-26-2024 Episodic Other bone disease and musculoskeletal deformities (19 sources) Somatic dysfunction of thoracic region; Translations: [Segmental and somatic dysfunction of thoracic region] 08-26-2024 Episodic Other bone disease and musculoskeletal deformities (20 sources) Cervical somatic dysfunction; Translations: [Segmental and somatic dysfunction of cervical region] 08-26-2024 Episodic Other bone disease and musculoskeletal deformities (19 sources) Somatic dysfunction of sacral region; Translations: [Segmental and somatic dysfunction of sacral region] 08-26-2024 Episodic Other bone disease and musculoskeletal deformities (6 sources) Segmental and somatic dysfunction of cervical region; Translations: [Nonallopathic lesions, cervical region] Onset: 2 Resolved: 2 Episodic Other bone disease and musculoskeletal deformities (7 sources) Segmental and somatic dysfunction of thoracic region; Translations: [Nonallopathic lesions, thoracic region] Onset: 2 Resolved: 2 Episodic Other bone disease and musculoskeletal deformities (7 sources) Segmental and somatic dysfunction of rib cage; Translations: [Nonallopathic lesions, rib cage] Onset: 2 Resolved: 2 Episodic Other bone disease and musculoskeletal deformities (7 sources) Segmental and somatic dysfunction of lumbar region; Translations: [Nonallopathic lesions, lumbar region] Onset: 2 Resolved: 2 Episodic Other bone disease and musculoskeletal deformities (6 sources) Segmental and somatic dysfunction of sacral region; Translations: [Nonallopathic lesions, sacral region] Onset: 2 Resolved: 2 Episodic Other circulatory disease (1 source) Other [...] right hand Episodic Other connective tissue disease (8 sources) Trochanteric bursitis; Translations: [Trochanteric bursitis, right hip] 01-28-2024 Episodic Other connective tissue disease (9 sources) Trochanteric bursitis, right hip; Translations: [Enthesopathy of hip region] 01-28-2024 Episodic Other diseases of bladder and urethra (20 sources) Spasm of bladder; Translations: [Other specified disorders of bladder] Chronic Other diseases of bladder and urethra (2 sources) Other specified disorders of bladder Onset: 2 Resolved: 2 Chronic Other gastrointestinal disorders (20 sources) Irritable bowel syndrome; Translations: [Irritable bowel syndrome without diarrhea] Onset: 4 06-02-2020 Chronic Other gastrointestinal disorders (20 sources) [...] legs syndrome Chronic Other lower respiratory disease (3 sources) Shortness of breath; Translations: [Shortness of breath] Onset: 2 Resolved: 2 Episodic Other lower respiratory disease (4 sources) Rib pain; Translations: [Pleurodynia] Episodic Other lower respiratory disease (20 sources) Persistent cough; Translations: [Persistent cough] Episodic Other lower respiratory disease (20 sources) Cough; Translations: [Recurrent cough] Episodic Other lower respiratory disease (1 source) Other forms of dyspnea Episodic Other lower respiratory disease (2 sources) Productive cough ; Translations: [Cough with frothy sputum] 04-27-2024 Episodic Other nervous system disorders (20 sources) Skin sensation disturbance; Translations: [Paresthesia of skin] Episodic Other nervous system disorders (1 source) Paresthesia of skin Episodic Other non-traumatic joint disorders (1 source) Pain in left knee Episodic Other non-traumatic joint disorders (3 sources) Hip pain; Translations: [Pain in right hip] 08-26-2024 Episodic Other nutritional; endocrine; and metabolic disorders (20 sources) Body mass index 30+ - obesity; Translations: [Body mass index (BMI) 36.0-36.9, adult] Onset: 4 11-28-2023 Chronic Other nutritional; endocrine; and metabolic disorders (20 sources) Obesity; Translations: [Other obesity due to excess calories] Onset: 4 01-28-2024 Chronic Other nutritional; endocrine; and metabolic disorders (20 sources) Obese class I; Translations: [Body mass index (BMI) 33.0-33.9, adult] Chronic Other nutritional; endocrine; and metabolic disorders (1 source) Body mass index (BMI) 34.0-34.9, adult Chronic Other nutritional; endocrine; and metabolic disorders (1 source) Body mass index (BMI) 33.0-33.9, adult Chronic Other nutritional; endocrine; and metabolic disorders (14 sources) Obesity, unspecified; Translations: [Obesity, unspecified] Chronic Other nutritional; endocrine; and metabolic disorders (6 sources) Body mass index (BMI) 32.0-32.9, adult; Translations: [Body Mass Index 32.0-32.9, adult] Chronic Other nutritional; endocrine; and metabolic disorders (6 sources) Body mass index (BMI) 31.0-31.9, adult; [...] mass index (BMI) 29.0-29.9, adult Episodic Other skin disorders (1 source) Dyshidrosis [pompholyx] Episodic Other upper respiratory disease (8 sources) Seasonal allergy; Translations: [Other seasonal allergic rhinitis] 06-22-2024 Chronic Other upper respiratory disease (19 sources) Allergic rhinitis due to animal hair and dander; Translations: [Allergic rhinitis due to animal (cat) (dog) hair and dander] Chronic Other upper respiratory disease (14 sources) Seasonal allergic rhinitis; Translations: [Other seasonal allergic rhinitis] Chronic Other upper respiratory disease (4 sources) Other seasonal allergic rhinitis; Translations: [Allergic rhinitis, cause unspecified] Onset: 2 Resolved: 2 Chronic Other upper respiratory disease (3 sources) Allergic rhinitis due to animal dander; Translations: [Allergic rhinitis due to animal (cat) (dog) hair and dander] Onset: 4 04-19-2024 Chronic Other upper respiratory infections (20 sources) Pain in throat; Translations: [Acute pharyngitis, unspecified] 06-22-2024 Episodic Residual codes; unclassified (20 sources) Edema of lower extremity; Translations: [Localized edema] Episodic Residual codes; unclassified (16 sources) Edema of hand; Translations: [Localized edema] Episodic Residual codes; unclassified (15 sources) Difficulty sleeping ; Translations: [Sleep disorder, unspecified] Episodic Residual codes; unclassified (20 sources) Insomnia; Translations: [Insomnia, unspecified] Onset: 4 11-27-2023 Episodic Residual codes; unclassified (2 sources) Edema, unspecified Episodic Residual codes; unclassified (9 sources) Past history of procedure; Translations: [Other specified postprocedural states] 11-27-2023 Episodic Residual codes; unclassified (1 source) Decreased libido; Translations: [Decreased libido] Onset: 5 Episodic Spondylosis; intervertebral disc disorders; other back problems (20 sources) Neck pain; Translations: [Cervicalgia] 08-26-2024 Episodic Thyroid disorders (20 sources) Hypothyroidism; Translations: [...] COUGH, UNSPECIFIED; Translations: [COUGH, UNSPECIFIED] Onset: 2 Viral infection (3 sources) COVID-19; Translations: [COVID-19] Onset: 2 Past or Other Problems Problem Classification Problem Date Documented Da te Episodic/Chronic Fever of unknown origin (4 sources) Fever, unspecified; Translations: [FEVER UNSPECIFIED] Onset: 09-18-2022 Episodic Lymphadenitis (3 sources) Reactive lymphadenopathy; Translations: [Enlarged lymph nodes, unspecified] Onset: 04-19-2024 04-19-2024 Episodic Malaise and fatigue (4 sources) Weakness; Translations: [Other fatigue] Onset: 02-27-2022 Episodic Other bone disease and musculoskeletal deformities (1 source) Segmental and somatic dysfunction of pelvic region Onset: 05-23-2022 Resolved: 05-23-2022 Episodic Other connective tissue disease (3 sources) Plantar fasciitis of left foot; Translations: [Plantar fascial fibromatosis] Onset: 04-19-2024 04-19-2024 Episodic Other connective tissue disease (3 sources) Trochanteric bursitis of right hip; Translations: [Trochanteric bursitis, right hip] Onset: 04-19-2024 04-19-2024 Episodic Other non-traumatic joint disorders (1 source) Pain in unspecified joint; Translations: [PAIN IN UNSPECIFIED JOINT] Onset: 05-13-2022 Episodic Other nutritional; endocrine; and metabolic disorders (1 source) Abnormal weight gain; Translations: [Abnormal weight gain] Onset: 04-07-2024 Episodic Other skin disorders (1 source) Other [...] Test Name Value Interpretation Reference Range Facility A1C with Estimated Average Ute brid 10-28-2024 Glucose [Mass/Vol] 117 mg/dL Normal [facility] Comment on above: Result Comment: PERF ORMED BY: [place] [address] PATHOLOGIST DEPUTY OF [employer]LL[employer] NATASHA ADAN M.D. Performed By: #### E STRADIOL #### [facility] , #### T4F, FSH, RETA, TSH3 #### [address] HbA1c (Bld) [Mass fraction] 5.7 % High 4.3-5.6 [facility] Comment on above: Result Comment: Incr eased risk for diabetes: 5.7 - 6.4 diabetes: >6.4 glycemic control for adults with diabetes: <7.0 Performed By: #### E STRADIOL #### [facility] , #### T4F, FSH, RETA, TSH3 #### [address] Alanine aminotransferase [En zymatic activity/volume] in Serum or PlasmaOrdered By: Micheal Bowling on 10-28-2024 ALT [Catalytic activity/Vol] Alanine aminotransferase [Enzymatic activity/volume] in Serum or Plasma 752 [facility] Albumin [Mass/volume] in Ser um or Plasma by Bromocresol green (BCG) dye binding methoOrdered By: Micheal Bowling on 10-28-2024 Albumin BCG dye [Mass/Vol] Albumin [Mass/volume] in Serum or Plasma by Bromocresol green (BCG) dye binding metho 3.5-5.7 [facility] Alkaline phosphatase [Enzyma tic activity/volume] in Serum or PlasmaOrdered By: Micheal Bowling on 10-28-2024 ALP [Catalytic activity/Vol] Alkaline phosphatase [Enzymatic activity/volume] in Serum or Plasma 34-104 [facility] Aspartate aminotransferase [ Enzymatic activity/volume] in Serum or PlasmaOrdered By: Micheal Bowling on 10-28-2024 AST [Catalytic activity/Vol] Aspartate aminotransferase [Enzymatic activity/volume] in Serum or Plasma 13-39 [facility] Basophils Auto (Bld) [#/Vol] Ordered By: Micheal Bowling on 10-28-2024 Basophils (Bld) [#/Vol] Automated basoph il count 0.0-0.2 [facility] Basophils/100 WBC Auto (Bld) Ordered By: Micheal Bowling on 10-28-2024 Basophils/100 WBC (Bld) Automated basophil % . [facility] Bilirubin.total [Mass/volume ] in Serum or PlasmaOrdered By: Micheal Bowling on 10-28-2024 Bilirubin [Mass/Vol] Bilirubin.total [Mass/volume] in Serum or Plasma 0.3-1.0 [facility] C reactive protein [Mass/vol ume] in Serum or Plasma by High sensitivity methodOrdered By: Micheal Bowling on 10-28-2024 CRP High sensitivity method [Mass/Vol] C reactive protein [Mass/volume] in Serum or Plasma by High sensitivity method High 0.0-0.9 [facility] Comment on above: Cardiovascular Risk Classification (AHA/CDC)hsCRP < 1.0 mg/l low relative risk for CVDhsCRP 1.0-3.0 mg/l average relative risk for CVDhsCRP > 3.0 mg/l high relative risk for CVDhsCRP > 7.5 mg/l active inflammation*Two results two weeks apart and averaged provide a morestable estimate of hsCRP level.*hsCRP levels > 7.5 mg/l may suggest infection that canlimit the use of this marker for estimation of CVD risk. Calcium [Mass/volume] in Ser um or PlasmaOrdered By: Micheal Bowling on 10-28-2024 Calcium [Mass/Vol] Calcium [Mass/volume ] in Serum or Plasma 8.6-10.3 [facility] Carbon dioxide, total [Moles /volume] in Serum or PlasmaOrdered By: Micheal Bowling on 10-28-2024 CO2 [Moles/Vol] Carbon dioxide, tota l [Moles/volume] in Serum or Plasma 21.0-31.0 [facility] Chloride [Moles/volume] in S lilia or PlasmaOrdered By: Micheal Bowling on 10-28-2024 Chloride [Moles/Vol] Chloride [Moles/volume] in Serum or Plasma 98-107 [facility] Cholesterol [Mass/volume] in Serum or PlasmaOrdered By: Micheal Bowling on 10-28-2024 Cholesterol [Mass/Vol] Cholesterol [Mass/volume] in Serum or Plasma 140-200 [facility] Comment on above: Chol less than 200 m g/dl low riskChol 201-239 mg/dl borderline riskChol 240 mg/dl and greater high risk Cholesterol in HDL [Mass/vol ume] in Serum or PlasmaOrdered By: Micheal Bowling on 10-28-2024 Cholesterol in HDL [Mass/Vol] Serum or plasma high density lipoprotein (HDL) cholesterol measurement [facility] Comment on above: HDL CHOL ATP-III CLA SSIFICATION Cardiovascular RiskHDL > or equal to 60 mg/dL LOWHDL < 40 mg/dL HIGH Cholesterol in LDL Calc [Mas s/Vol]Ordered By: Micheal Bowling on 10-28-2024 Cholesterol in LDL [Mass/Vol] Cholesterol in LDL [Mass/volume] in Serum or Plasma by calculation High 0-100 [facility] Comment on above: LDL ATP III CLASSIFI CATIONLDL less than 100 mg/dL OptimalLDL 100-129 mg/dL Near or above optimalLDL 130-159 mg/dL Borderline highLDL 160-189 mg/dL HighLDL greater than 189 mg/dL Very high Cholesterol in VLDL Calc [Ma ss/Vol]Ordered By: Micheal Bowling on 10-28-2024 Cholesterol in VLDL [Mass/Vol] Cholesterol in VLDL [Mass/volume] in Serum or Plasma by calculation [facility] Complete Blood Count Auto Di ffon 10-28-2024 Basophils (Bld) [#/Vol] 0.1 10*3/uL Normal 0.0-0.2 [facility] Comment on above: Result Comment: PERF ORMED BY: [facility] [address] [place] [address] PATHOLOGIST [employer] NATASHA ADAN M.D. Performed By: #### L IPID, FSH, A1C WTH eA, HSCRP, T4F, TSH3, CBC, CMP #### [place] [address] [place] #### LIPA, ESTRADIOL #### [facility] , Basophils/100 WBC (Bld) 1.1 % Normal . T brunilda [facility] Comment on above: Performed By: #### L IPID, FSH, A1C WTH eA, HSCRP, T4F, TSH3, CBC, CMP #### [place] [address] [place] #### LIPA, ESTRADIOL #### [facility] , Eosinophils (Bld) [#/Vol] 0.3 10*3/uL Normal 0.0-0.45 [facility] Comment on above: Performed By: #### L IPID, FSH, A1C WTH eA, HSCRP, T4F, TSH3, CBC, CMP #### [address] #### LIPA, ESTRADIOL #### [facility] , Eosinophils/100 WBC (Bld) 3.1 % Normal . [facility] Comment on above: Performed By: #### L IPID, FSH, A1C WTH eA, HSCRP, T4F, TSH3, CBC, CMP #### [place] [address] [place] #### LIPA, ESTRADIOL #### [facility] , Erythrocyte distribution width (RBC) [Ratio] 12.8 % Normal 11.9-15.3 [facility] Comment on above: Performed By: #### L IPID, FSH, A1C WTH eA, HSCRP, T4F, TSH3, CBC, CMP #### [place] [address] [place] #### LIPA, ESTRADIOL #### [facility] , Hematocrit (Bld) [Volume fraction] 38.7 % Normal 34.0-46.4 [facility] Comment on above: Performed By: #### L IPID, FSH, A1C WTH eA, HSCRP, T4F, TSH3, CBC, CMP #### [place] [address] [place] #### LIPA, ESTRADIOL #### [facility] , Hemoglobin (Bld) [Mass/Vol] 13.2 g/dL Normal 11.8-15.4 [facility] Comment on above: Performed By: #### L IPID, FSH, A1C WTH eA, HSCRP, T4F, TSH3, CBC, CMP #### [place] [address] [place] #### LIPA, ESTRADIOL #### [facility] , Lymphocytes (Bld) [#/Vol] 2.8 10*3/uL Normal 1.00-4.8 [facility] Comment on above: Performed By: #### L IPID, FSH, A1C WTH eA, HSCRP, T4F, TSH3, CBC, CMP #### [place] [address] [place] #### LIPA, ESTRADIOL #### [facility] , Lymphocytes/100 WBC (Bld) 30.9 % Normal . [facility] Comment on above: Performed By: #### L IPID, FSH, A1C WTH eA, HSCRP, T4F, TSH3, CBC, CMP #### [address] #### LIPA, ESTRADIOL #### [facility] , MCH (RBC) [Entitic mass] 29.0 pg Normal 24.7-34.3 [facility] Comment on above: Performed By: #### L IPID, FSH, A1C WTH eA, HSCRP, T4F, TSH3, CBC, CMP #### [place] [address] [place] #### LIPA, ESTRADIOL #### [facility] , MCV (RBC) [Entitic vol] 84.8 fL Normal 80-100 [facility] Comment on above: Performed By: #### L IPID, FSH, A1C WTH eA, HSCRP, T4F, TSH3, CBC, CMP #### [place] [address] [place] #### LIPA, ESTRADIOL #### [facility] , Mean Corpuscular HGB Conc 34.2 g/dL Normal 32.0-35.0 [facility] Comment on above: Performed By: #### L IPID, FSH, A1C WTH eA, HSCRP, T4F, TSH3, CBC, CMP #### [place] [address] [place] #### LIPA, ESTRADIOL #### [facility] , Monocytes (Bld) [#/Vol] 0.5 10*3/uL Normal 0.0-0.8 [facility] Comment on above: Performed By: #### L IPID, FSH, A1C WTH eA, HSCRP, T4F, TSH3, CBC, CMP #### [place] [address] [place] #### LIPA, ESTRADIOL #### [facility] , Monocytes/100 WBC (Bld) 5.8 % Normal . T brunilda [facility] Comment on above: Performed By: #### L IPID, FSH, A1C WTH eA, HSCRP, T4F, TSH3, CBC, CMP #### [place] [address] [place] #### LIPA, ESTRADIOL #### [facility] , Neutrophils (Bld) [#/Vol] 5.4 10*3/uL Normal 1.8-7.7 [facility] Comment on above: Performed By: #### L IPID, FSH, A1C WTH eA, HSCRP, T4F, TSH3, CBC, CMP #### [place] [address] [place] #### LIPA, ESTRADIOL #### [facility] , Neutrophils/100 WBC (Bld) 59.1 % Normal . [facility] Comment on above: Performed By: #### L IPID, FSH, A1C WTH eA, HSCRP, T4F, TSH3, CBC, CMP #### [place] [address] [place] #### LIPA, ESTRADIOL #### [facility] , NRBC% 0.1 /100{WBC} Normal 0-0.5 [facility] Comment on above: Performed By: #### L IPID, FSH, A1C WTH eA, HSCRP, T4F, TSH3, CBC, CMP #### [place] [address] [place] #### LIPA, ESTRADIOL #### [facility] , Platelet mean volume (Bld) [Entitic vol] 8.6 fL Normal 6.3-10.7 [facility] Comment on above: Performed By: #### L IPID, FSH, A1C WTH eA, HSCRP, T4F, TSH3, CBC, CMP #### [place] [address] [place] #### LIPA, ESTRADIOL #### [facility] , Platelets (Bld) [#/Vol] 276 10*3/uL Normal 150-450 [facility] Comment on above: Performed By: #### L IPID, FSH, A1C WTH eA, HSCRP, T4F, TSH3, CBC, CMP #### [place] [address] [place] #### LIPA, ESTRADIOL #### [facility] , RBC (Bld) [#/Vol] 4.56 10*6/uL Normal 3.60-5.00 [facility] Comment on above: Performed By: #### L IPID, FSH, A1C WTH eA, HSCRP, T4F, TSH3, CBC, CMP #### [place] [address] [place] #### LIPA, ESTRADIOL #### [facility] , WBC (Bld) [#/Vol] 9.2 10*3/uL Normal 3.8-11.[address] [facility] Comment on above: Performed By: #### L IPID, FSH, A1C WTH eA, HSCRP, T4F, TSH3, CBC, CMP #### [place] [address] [place] #### LIPA, ESTRADIOL #### [facility] , Comprehensive Metabolic Pane ck 10-28-2024 Albumin [Mass/Vol] 4.4 g/dL Normal 3.5-5.[address] [facility] Comment on above: Performed By: #### L IPID, FSH, A1C WTH eA, HSCRP, T4F, TSH3, CBC, CMP #### [place] [address] [place] #### LIPA, ESTRADIOL #### [facility] , Albumin/Globulin [Mass ratio] 1.8 {ratio} Normal [facility] Comment on above: Performed By: #### L IPID, FSH, A1C WTH eA, HSCRP, T4F, TSH3, CBC, CMP #### [place] [address] [place] #### LIPA, ESTRADIOL #### [facility] , ALP [Catalytic activity/Vol] 59 U/L Normal 34-104 [facility] Comment on above: Performed By: #### L IPID, FSH, A1C WTH eA, HSCRP, T4F, TSH3, CBC, CMP #### [place] [address] [place] #### LIPA, ESTRADIOL #### [facility] , ALT [Catalytic activity/Vol] 14 U/L Normal 7-52 [facility] Comment on above: Performed By: #### L IPID, FSH, A1C WTH eA, HSCRP, T4F, TSH3, CBC, CMP #### [place] [address] [place] #### LIPA, ESTRADIOL #### [facility] , Anion gap [Moles/Vol] 8.3 mmol/L Normal 6.0-15.0 [facility] Comment on above: Performed By: #### L IPID, FSH, A1C WTH eA, HSCRP, T4F, TSH3, CBC, CMP #### [place] [address] [place] #### LIPA, ESTRADIOL #### [facility] , AST [Catalytic activity/Vol] 15 U/L Normal 13-39 [facility] Comment on above: Performed By: #### L IPID, FSH, A1C WTH eA, HSCRP, T4F, TSH3, CBC, CMP #### [address] #### LIPA, ESTRADIOL #### [facility] , Bilirubin [Mass/Vol] 0.6 mg/dL Normal 0.3-1.0 [facility] Comment on above: Performed By: #### L IPID, FSH, A1C WTH eA, HSCRP, T4F, TSH3, CBC, CMP #### [place] [address] [place] #### LIPA, ESTRADIOL #### [facility] , Calcium [Mass/Vol] 9.3 mg/dL Normal 8.6-10.[address] [facility] Comment on above: Performed By: #### L IPID, FSH, A1C WTH eA, HSCRP, T4F, TSH3, CBC, CMP #### [place] [address] [place] #### LIPA, ESTRADIOL #### [facility] , Chloride [Moles/Vol] 104 mmol/L Normal 98-107 [facility] Comment on above: Performed By: #### L IPID, FSH, A1C WTH eA, HSCRP, T4F, TSH3, CBC, CMP #### [place] [address] [place] #### LIPA, ESTRADIOL #### [facility] , CO2 [Moles/Vol] 30.7 mmol/L Normal 21.0-31.0 [facility] Comment on above: Performed By: #### L IPID, FSH, A1C WTH eA, HSCRP, T4F, TSH3, CBC, CMP #### [place] [address] [place] #### LIPA, ESTRADIOL #### [facility] , Creatinine [Mass/Vol] 0.83 mg/dL Normal 0.60-1.20 [facility] Comment on above: Performed By: #### L IPID, FSH, A1C WTH eA, HSCRP, T4F, TSH3, CBC, CMP #### [place] [address] [place] #### LIPA, ESTRADIOL #### [facility] , GFR/1.73 sq M.predicted MDRD (S/P/Bld) [Vol rate/Area] mL/min/{1.73_m2} Normal [facility] Comment on above: Performed By: #### L IPID, FSH, A1C WTH eA, HSCRP, T4F, TSH3, CBC, CMP #### [place] [address] [place] #### LIPA, ESTRADIOL #### [facility] , Globulin (S) [Mass/Vol] 2.5 g/dL Normal [facility] Comment on above: Performed By: #### L IPID, FSH, A1C WTH eA, HSCRP, T4F, TSH3, CBC, CMP #### [place] [address] [place] #### LIPA, ESTRADIOL #### [facility] , Glucose [Mass/Vol] 97 mg/dL Normal 70-[address] [facility] Comment on above: Result Comment: Benedict Glucose Reference Range is dependent on time and content of last meal. Glucose of more than 200 mg/dL in a nonstressed, ambulatory subject supports the diagnosis of Diabetes Mellitus. ADA recommended reference range Performed By: #### L IPID, FSH, A1C WTH eA, HSCRP, T4F, TSH3, CBC, CMP #### [place] [address] [place] #### LIPA, ESTRADIOL #### [facility] , Potassium [Moles/Vol] 4.0 mmol/L Normal 3.5-5.1 [facility] Comment on above: Performed By: #### L IPID, FSH, A1C WTH eA, HSCRP, T4F, TSH3, CBC, CMP #### [facility] [address] [place] [address] [place] #### LIPA, ESTRADIOL #### [facility] , Protein [Mass/Vol] 6.9 g/dL Normal 6.4-8.[address] [facility] Comment on above: Performed By: #### L IPID, FSH, A1C WTH eA, HSCRP, T4F, TSH3, CBC, CMP #### [place] [address] [place] #### LIPA, ESTRADIOL #### [facility] , Sodium [Moles/Vol] 139 mmol/L Normal 136-[address] [facility] Comment on above: Performed By: #### L IPID, FSH, A1C WTH eA, HSCRP, T4F, TSH3, CBC, CMP #### [place] [address] [place] #### LIPA, ESTRADIOL #### [facility] , Urea nitrogen [Mass/Vol] 10 mg/dL Normal 7-25 [facility] Comment on above: Performed By: #### L IPID, FSH, A1C WTH eA, HSCRP, T4F, TSH3, CBC, CMP #### [place] [address] [place] #### LIPA, ESTRADIOL #### [facility] , Creatinine [Mass/volume] in Serum or PlasmaOrdered By: Micheal Bowling on 10-28-2024 Creatinine [Mass/Vol] Creatinine [Mass/volume] in Serum or Plasma 0.60-1.20 [facility] Eosinophils Auto (Bld) [#/Vo l]Ordered By: Micheal Bowling on 10-28-2024 Eosinophils (Bld) [#/Vol] Automated eosinophil count 0.0-0.45 [facility] Eosinophils/100 WBC Auto (Bl d)Ordered By: Micheal Bowling on 10-28-2024 Eosinophils/100 WBC (Bld) Automated eosinophil % . [facility] Erythrocyte distribution wid th Auto (RBC) [Ratio]Ordered By: Micheal Bowling on 10-28-2024 Erythrocyte distribution width (RBC) [Ratio] Erythrocyte distribution width [Ratio] by Automated count 11.9-15.3 [facility] Estradiolon 10-28-2024 Estradiol 26.6 pg/mL Normal . [facility] Comment on above: Result Comment: Adul t Female Range Follicular phase 12.5 - 166.0 Ovulation phase 85.8 - 498.0 Luteal phase 43.8 - 211.0 Postmenopausal <6.0 - 54.7 1st trimester 215.0 - >4300.0 Kathi ECLIA methodology Performed at: [facility] [place] [id number] Concrete Carpenter: Damir Young PhD, Phone: [phone] PERFORMED BY: [place] [address] PATHOLOGIST DEPUTY OF [employer]TELL[employer] NATASHA ADAN M.D. Performed By: #### E STRADIOL #### [facility] , #### T4F, FSH, RETA, TSH3 #### [address] Follicle Stimulating Hormone on 10-28-2024 Follicle Stimulating Hormone 30.9 m[iU]/mL Normal [facility] Comment on above: Result Comment: FEMA LE NORMALS (PREMENOPAUSE) MID-FOLLICULAR PHASE: 3.9-8.8 mIU/mL MID-CYCLE PEAK: 4.5-22.5 mIU/mL MID-LUTEAL PHASE: 1.8-5.1 mIU/mL FEMALE NORMALS (POSTMENOPAUSE): 16.7-113.6 mIU/mL MALE NORMALS: 1.3-19.3 mIU/mL PERFORMED BY: [facility] [address] [place] [address] PATHOLOGIST DEPUTY OF [employer]TELL[employer] NATASHA ADAN M.D. Performed By: #### E STRADIOL #### [facility] , #### T4F, FSH, RETA, TSH3 #### [facility] [address] Follitropin [Units/volume] i n Serum or PlasmaOrdered By: Micheal Bowling on 10-28-2024 Follitropin Qn Follitropin [Units/volume] in Serum or Plasma [facility] Comment on above: FEMALE NORMALS (THIERNO ENOPAUSE) MID-FOLLICULAR PHASE: 3.9-8.8 mIU/mL MID-CYCLE PEAK: 4.5-22.5 mIU/mL MID-LUTEAL PHASE: 1.8-5.1 mIU/mLFEMALE NORMALS (POSTMENOPAUSE): 16.7-113.6 mIU/mLMALE NORMALS: 1.3-19.3 mIU/mL Free T4 (Free Thyroxine)on 0 10-28-2024 Free T4 [Mass/Vol] 0.78 ng/dL Normal 0.61-1.12 [facility] Comment on above: Performed By: #### L IPID, FSH, A1C WTH eA, HSCRP, T4F, TSH3, CBC, CMP #### [facility] [address] [place] [address] [place] #### LIPA, ESTRADIOL #### [facility] , Globulin Calc (S) [Mass/Vol] Ordered By: Micheal Bowling on 10-28-2024 Globulin (S) [Mass/Vol] Serum globulin measurement by calculation (mass/volume) [facility] Glucose [Mass/volume] in Ser um or PlasmaOrdered By: Micheal Bowling on 10-28-2024 Glucose [Mass/Vol] Glucose [Mass/volume ] in Serum or Plasma 70-100 [facility] Comment on above: ADA recommended refe rence rangeRandom Glucose Reference Range is dependent on time and content of last meal. Glucose of more than 200 mg/dL in a nonstressed, ambulatory subject supports the diagnosis of Diabetes Mellitus. Hematocrit Auto (Bld) [Volum e fraction]Ordered By: Micheal Bowling on 10-28-2024 Hematocrit (Bld) [Volume fraction] Hematocrit [Volume Fraction] of Blood by Automated count 34.0-46.4 [facility] Hemoglobin [Mass/volume] in BloodOrdered By: Micheal Bowling on 10-28-2024 Hemoglobin (Bld) [Mass/Vol] Hemoglobin [Mass/volume] in Blood 11.8-15.4 [facility] High Sensitive CRPon 025 High Sensitive CRP 17.2 mg/L High 0.0-0.[address] [facility] Comment on above: Result Comment: Card iovascular Risk Classification (AHA/CDC) hsCRP < 1.0 mg/l low relative risk for CVD hsCRP 1.0-3.0 mg/l average relative risk for CVD hsCRP > 3.0 mg/l high relative risk for CVD hsCRP > 7.5 mg/l active inflammation* Two results two weeks apart and averaged provide a more stable estimate of hsCRP level. *hsCRP levels > 7.5 mg/l may suggest infection that can limit the use of this marker for estimation of CVD risk. PERFORMED BY: [place] [address] PATHOLOGIST DEPUTY OF COUNTER INTELLIGENCE NATASHA ADAN M.D. Performed By: #### L IPID, FSH, A1C WTH eA, HSCRP, T4F, TSH3, CBC, CMP #### [facility] [address] [place] [address] [place] #### LIPA, ESTRADIOL #### [facility] , Leukocytes [#/volume] correc brenda for nucleated erythrocytes in Blood by Automated counOrdered By: Micheal Bowling on 10-28-2024 WBC corrected for nucl RBC Auto (Bld) [#/Vol] Leukocytes [#/volume] corrected for nucleated erythrocytes in Blood by Automated coun 3.8-11.6 [facility] Lipid Panelon 10-28-2024 Cholesterol [Mass/Vol] 181 mg/dL Normal 140-200 [facility] Comment on above: Result Comment: Chol less than 200 mg/dl low risk Chol 201-239 mg/dl borderline risk Chol 240 mg/dl and greater high risk Performed By: #### L IPID, FSH, A1C WTH eA, HSCRP, T4F, TSH3, CBC, CMP #### [address] #### LIPA, ESTRADIOL #### [facility] , Cholesterol in HDL [Mass/Vol] 40 mg/dL Normal 23-92 [facility] Comment on above: Result Comment: HDL CHOL ATP-III CLASSIFICATION Cardiovascular Risk HDL > or equal to 60 mg/dL LOW HDL < 40 mg/dL HIGH Performed By: #### L IPID, FSH, A1C WTH eA, HSCRP, T4F, TSH3, CBC, CMP #### [address] #### LIPA, ESTRADIOL #### [facility] , Cholesterol.total/Spring sterol in HDL [Mass ratio] 4.5 {ratio} Normal <5.0 [facility] Comment on above: Performed By: #### L IPID, FSH, A1C WTH eA, HSCRP, T4F, TSH3, CBC, CMP #### [facility] [address] [place] [address] [place] #### LIPA, ESTRADIOL #### [facility] , LDL Cholesterol,Calculated 115 mg/dL High 0-100 [facility] Comment on above: Result Comment: LDL ATP III CLASSIFICATION LDL less than 100 mg/dL Optimal LDL 100-129 mg/dL Near or above optimal LDL 130-159 mg/dL Borderline high LDL 160-189 mg/dL High LDL greater than 189 mg/dL Very high Performed By: #### L IPID, FSH, A1C WTH eA, HSCRP, T4F, TSH3, CBC, CMP #### [place] [address] [place] #### LIPA, ESTRADIOL #### [facility] , Triglyceride w/Reflex 130 mg/dL Normal 0-149 [facility] Comment on above: Result Comment: TRIG ATP III CLASSIFICATION TRIG less than 150 mg/dL Normal TRIG 150-199 mg/dL Borderline high TRIG 200-500 mg/dL High TRIG greater than 500 mg/dL Very high Standard traceable to the Center for Disease Conrtrol and Prevention (CDC) test method. Performed By: #### L IPID, FSH, A1C WTH eA, HSCRP, T4F, TSH3, CBC, CMP #### [facility] [address] [place] [address] #### LIPA, ESTRADIOL #### [facility] , VLDL CHOLESTEROL 26 mg/dL Normal [facility] Comment on above: Performed By: #### L IPID, FSH, A1C WTH eA, HSCRP, T4F, TSH3, CBC, CMP #### [facility] [address] [place] [address] #### LIPA, ESTRADIOL #### [facility] , Lipoprotein (a)on 10-28-2024 Lipoprotein a [Mass/Vol] 135.5 mg/dL High <75.0 [facility] Comment on above: Result Comment: Note : Values greater than or equal to 75.0 nmol/L may indicate an independent risk factor for CHD, but must be evaluated with caution when applied to non- populations due to the influence of genetic factors on Lp(a) across ethnicities. Performed at: [facility] [address] [id number] Concrete Carpenter: Damir Young PhD, Phone: [phone] Performed By: #### E STRADIOL #### [facility] , #### T4F, FSH, RETA, TSH3 #### [address] Lymphocytes Auto (Bld) [#/Vo l]Ordered By: Micheal Bowling on 10-28-2024 Lymphocytes (Bld) [#/Vol] Lymphocytes [#/volume] in Blood by Automated count 1.00-4.8 [facility] Lymphocytes/100 WBC Auto (Bl d)Ordered By: Micheal Bowling on 10-28-2024 Lymphocytes/100 WBC (Bld) Lymphocytes/100 leukocytes in Blood by Automated count . [facility] MCH Auto (RBC) [Entitic mass ]Ordered By: Micheal Bowling on 10-28-2024 MCH (RBC) [Entitic mass] MCH [Entitic mass] by Automated count 24.7-34.3 [facility] MCHC Auto (RBC) [Mass/Vol]Or dered By: Micheal Bowling on 10-28-2024 MCHC (RBC) [Mass/Vol] MCHC [Mass/volume] by Automated count 32.0-35.0 [facility] MCV Auto (RBC) [Entitic vol] Ordered By: Micheal Bowling on 10-28-2024 MCV (RBC) [Entitic vol] MCV [Entitic vol ume] by Automated count 80-100 [facility] Monocytes Auto (Bld) [#/Vol] Ordered By: Micheal Bowling on 10-28-2024 Monocytes (Bld) [#/Vol] Automated blood monocyte count 0.0-0.8 [facility] Monocytes/100 WBC Auto (Bld) Ordered By: Micheal Bowling on 10-28-2024 Monocytes/100 WBC (Bld) Automated monocyte % . [facility] Neutrophils Auto (Bld) [#/Vo l]Ordered By: Micheal Bowling on 10-28-2024 Neutrophils (Bld) [#/Vol] Neutrophils [#/volume] in Blood by Automated count 1.8-7.7 [facility] Neutrophils/100 WBC Auto (Bl d)Ordered By: Micheal Bowling on 10-28-2024 Neutrophils/100 WBC (Bld) Automated neutrophil % . [facility] No Panel InformationOrdered By: Micheal Bowling on 10-28-2024 Estimated GFR (CKD-EPI) > 60.0 mL/Min [facility] Creatinine Clearance (Chem N/A [facility] Nucleated erythrocytes [Pres ence] in Blood by Automated countOrdered By: Micheal Bowling on 10-28-2024 Nucleated RBC Auto Ql (Bld) Nucleated erythrocytes [Presence] in Blood by Automated count 0-0.5 [facility] Platelet mean volume Auto (B ld) [Entitic vol]Ordered By: Micheal Bowling on 10-28-2024 Platelet mean volume (Bld) [Entitic vol] Platelet mean volume [Entitic volume] in Blood by Automated count 6.3-10.7 [facility] Platelets Auto (Bld) [#/Vol] Ordered By: Micheal Bowling on 10-28-2024 Platelets (Bld) [#/Vol] Platelets [#/vol ume] in Blood by Automated count 150-450 [facility] Potassium [Moles/volume] in Serum or PlasmaOrdered By: Micheal Bowling on 10-28-2024 Potassium [Moles/Vol] Potassium [Moles/volume] in Serum or Plasma 3.5-5.1 [facility] Protein [Mass/volume] in Ser um or PlasmaOrdered By: Micheal Bowling on 10-28-2024 Protein [Mass/Vol] Protein [Mass/volume ] in Serum or Plasma 6.4-8.9 [facility] RBC Auto (Bld) [#/Vol]Ordere d By: Micheal Bowling on 10-28-2024 RBC (Bld) [#/Vol] Erythrocytes [#/volume] in Blood by Automated count 3.60-5.00 [facility] Serum or plasma albumin/glob ulin mass ratioOrdered By: Micheal Bowling on 10-28-2024 Albumin/Globulin [Mass ratio] Serum or plasma albumin/globulin mass ratio [facility] Serum or plasma anion gap de terminationOrdered By: Micheal Bowling on 10-28-2024 Anion gap [Moles/Vol] Serum or plasma an ion gap determination 6.0-15.0 [facility] Serum or plasma total choles terol/high density lipoprotein (HDL) cholesterol mass ratOrdered By: Micheal Bowling on 10-28-2024 Cholesterol.total/Spring sterol in HDL [Mass ratio] Serum or plasma total cholesterol/high density lipoprotein (HDL) cholesterol mass rat <5.0 [facility] Sodium [Moles/volume] in Ser um or PlasmaOrdered By: Micheal Bowling on 10-28-2024 Sodium [Moles/Vol] Sodium [Moles/volume ] in Serum or Plasma 136-145 [facility] Thyroid Stimulating Hormoneo n 10-28-2024 TSH Qn 3.29 m[IU]/L Normal 0.45-5.33 [facility] Comment on above: Performed By: #### E STRADIOL #### [facility] , #### T4F, FSH, RETA, TSH3 #### [facility] [address] Thyrotropin [Units/volume] i n Serum or PlasmaOrdered By: Micheal Bowling on 10-28-2024 TSH Qn Thyrotropin [Units/volume] in Serum or Plasma 0.45-5.33 [facility] Thyroxine (T4) free [Mass/vo lume] in Serum or PlasmaOrdered By: Micheal Bowling on 10-28-2024 Free T4 [Mass/Vol] Thyroxine (T4) free [Mass/volume] in Serum or Plasma 0.61-1.12 [facility] Triglyceride [Mass/volume] i n Serum or PlasmaOrdered By: Micheal Bowling on 10-28-2024 Triglyceride [Mass/Vol] Triglyceride [Mass/volume] in Serum or Plasma 0-149 [facility] Comment on above: TRIG ATP III CLASSIF ICATIONTRIG less than 150 mg/dL NormalTRIG 150-199 mg/dL Borderline highTRIG 200-500 mg/dL High TRIG greater than 500 mg/dL Very highStandard traceable to the Center for Disease Conrtrol and Prevention (CDC) test method. Urea nitrogen [Mass/volume] in Serum or PlasmaOrdered By: Micheal Bowling on 10-28-2024 Urea nitrogen [Mass/Vol] Urea nitrogen [Mass/volume] in Serum or Plasma 04-29 [facility] WBC Auto (Bld) [#/Vol]Ordere d By: Micheal Bowling on 10-28-2024 WBC (Bld) [#/Vol] Leukocytes [#/volume ] in Blood by Automated count 3.8-11.6 [facility] Laboratory - Chemistry and C hemistry - challengeon 08-26-2024 Bilirubin Ql (U) Negative [facility] Glucose (U) [Mass/Vol] Negative [facility] Ketones Ql (U) Negative [facility] pH (U) 6.0 [pH] [facility] Specific gravity (U) [Rel density] 1.015 [facility] Urobilinogen (U) [Mass/Vol] 0.2 mg/dL [facility] Laboratory - Urinalysison Leukocyte esterase Test strip Ql (U) Negative [facility] Nitrite Ql (U) Negative [facility] Protein Ql (U) Negative [facility] No Panel Informationon 08-26 Urine Occult Blood Negative [facility] Laboratory - Microbiology an d Antimicrobial susceptibilityon 07-26-2024 SARS-CoV-2 (COVID-19) RNA KIRTI+probe Ql (Unsp spec) Negative [facility] No Panel Informationon 07-26 FLU A Negative [facility] FLU B Negative [facility] Interpretation and review of laboratory results Normal [facility] S. pyogenes DNA KIRTI+probe No m (Unsp spec)on 07-26-2024 RESULT Negative [facility] Influenza virus B Ag [Presen ce] in Upper respiratory specimen by Rapid immunoassayon 06-22-2024 FLUBV Ag IA.rapid Ql (Nph) Influenza virus B Ag [Presence] in Upper respiratory specimen by Rapid immunoassay [facility] No Panel InformationOrdered By: Micheal Bowling on 06-22-2024 Quick Strep (POC) [facility] RSV (POC) [facility] No Panel Informationon 06-22 Influenza Type A (Rapid) Negative [facility] POC SARS CoV-2 Antigen Negative [facility] Cortisolon 04-07-2024 Cortisol 12.5 ug/dL Normal [facility] Comment on above: Result Comment: Refe rence range: AM 6 - 24 ug/dl PM <10 ug/dl [facility] punch press feeder and method: [employer] DXI, POLYCLONAL ANTIBODY CORTISOL ASSAY. PERFORMED BY: [place] [address] PATHOLOGIST DEPUTY OF COUNTER INTELLIGENCE BOGDAN ZIMMERAMN M.D. Performed By: #### E STRADIOL #### [facility] , #### T4F, FSH, RETA, TSH3 #### [place] [address] [place] Estradiolon 04-07-2024 Estradiol 243.0 pg/mL Normal . [facility] Comment on above: Result Comment: Adul t Female Range Follicular phase 12.5 - 166.0 Ovulation phase 85.8 - 498.0 Luteal phase 43.8 - 211.0 Postmenopausal <6.0 - 54.7 1st trimester 215.0 - >4300.0 Kathi ECLIA methodology Performed at: [facility] [address] [id number] Concrete Carpenter: Damir Young PhD, Phone: [phone] PERFORMED BY: [place] [address] PATHOLOGIST DEPUTY OF COUNTER INTELLIGENCE BOGDAN ZIMMERMAN M.D. Performed By: #### E STRADIOL #### [facility] , #### T4F, FSH, RETA, TSH3 #### [facility] [address] [place] [address] Follicle Stimulating Hormone on 04-07-2024 Follicle Stimulating Hormone 4.9 m[iU]/mL Normal [facility] Comment on above: Result Comment: FEMA LE NORMALS (PREMENOPAUSE) MID-FOLLICULAR PHASE: 3.9-8.8 mIU/mL MID-CYCLE PEAK: 4.5-22.5 mIU/mL MID-LUTEAL PHASE: 1.8-5.1 mIU/mL FEMALE NORMALS (POSTMENOPAUSE): 16.7-113.6 mIU/mL MALE NORMALS: 1.3-19.3 mIU/mL Performed By: #### E STRADIOL #### [facility] , #### T4F, FSH, RETA, TSH3 #### [facility] [address] [place] [address] Follitropin [Units/volume] i n Serum or PlasmaOrdered By: Micheal Bowling on 04-07-2024 Follitropin Qn 4.9 m[IU]/mL [facility] Comment on above: FEMALE NORMALS (THIERNO ENOPAUSE) MID-FOLLICULAR PHASE: 3.9-8.8 mIU/mL MID-CYCLE PEAK: 4.5-22.5 mIU/mL MID-LUTEAL PHASE: 1.8-5.1 mIU/mLFEMALE NORMALS (POSTMENOPAUSE): 16.7-113.6 mIU/mLMALE NORMALS: 1.3-19.3 mIU/mL Random cortisol measurementO rdered By: Micheal Bowling on 04-07-2024 Cortisol [Mass/Vol] 12.5 ug/dL [facility] Comment on above: [facility] punch press feeder and method:REJI UNICEL DXI, POLYCLONAL ANTIBODY CORTISOL ASSAY.Reference range: AM 6 - 24 ug/dl PM <10 ug/dl Serum or plasma estradiol (E 2) measurement (mass/volume)Ordered By: Micheal Bowling on 04-07-2024 E2 [Mass/Vol] 243.0 pg/mL . [facility] Comment on above: Adult Female Range F ollicular phase 12.5 - 166.0 Ovulation phase 85.8 - 498.0 Luteal phase 43.8 - 211.0 Postmenopausal <6.0 - 54.7 1st trimester 215.0 - >4300.0Roche ECLIA methodologyPerformed at: [facility] [place] [id number] Director: Damir Young PhD, Phone: [phone] Thyrotropin [Units/volume] i n Serum or PlasmaOrdered By: Micheal Bowling on 04-07-2024 TSH Qn 3.28 m[IU]/L Normal 0.45-5.33 [facility] Comment on above: Performed By: #### E STRADIOL #### [facility] , #### T4F, FSH, RETA, TSH3 #### [address] Thyroxine (T4) free [Mass/vo lume] in Serum or PlasmaOrdered By: Micheal Bowling on 04-07-2024 Free T4 [Mass/Vol] 0.86 ng/dL Normal 0.61-1.12 [facility] Comment on above: Performed By: #### E STRADIOL #### [facility] , #### T4F, FSH, RETA, TSH3 #### [facility] [address] [place] [id number] [facility] Laboratory - Chemistry and C hemistry - challengeon 03-02-2024 Bilirubin Ql (U) Negative [facility] Glucose (U) [Mass/Vol] Negative [facility] Ketones Ql (U) Negative [facility] pH (U) 6.0 [pH] [facility] Specific gravity (U) [Rel density] 1.025 [facility] Urobilinogen (U) [Mass/Vol] 0.2 mg/dL [facility] Laboratory - Urinalysison Leukocyte esterase Test strip Ql (U) Negative [facility] Nitrite Ql (U) Negative [facility] Protein Ql (U) Negative [facility] No Panel Informationon 03-02 Urine Occult Blood Negative [facility] Heart and Vascular Office/Cl inic Noteon 01-20-2024 [...] after patient or guardian consented to allow [employer] to record this visit. KIRSTY life enrichment specialist and provider reviewed before signing. KIRSTY: Fran Fabian. Portions of this record may have been created with voice recognition artificial intelligence software, specifically Track the Bet, Elixserve and or Fitzeal. Substitutions may have occurred due to the [...] Acute myocardial infarction: Father. Hypertension: Father. Normal [facility] Comment on above: Result Comment: Elec tronically Signed By: Jasmin NGUYỄN, Aly Tim\.br\Date and Time Signed: 01/20/24 06:16 EDT\.br\Electronically Co-Signed By: Fran Fabian\.br\Date and Time Co-Signed: 12/26/23 16:26 EDT BI MAMMOGRAM SCREENING TOMOS YNTHESIS BILATERALon 01-12-2024 BI MAMMOGRAM SCREENING TOMOSYNTHESIS BILATERAL [...] IS VERY IMPORTANT TO YOUR HEALTH. THE [employer] GUIDELINES RECOMMEND THAT WOMEN 40 [...] compression prn Physician Orderon 12-29-2023 Physician Order [id number]# 1.00TIFF Normal [facility] Ambulatory Visit Summaryon 0 12-26-2023 Ambulatory Visit Summary BRANDON LNOG :1975 Visit Date:12/26/2023 Ambulatory Visit Instructions Your Care Team Attending Physician - Jasmin NGUYỄN, Aly Tim Primary Care Physician - MICHEAL BOWLING DO Referring Physician - NONE, XXXX This [...] you for choosing us for your care. Normal [facility] Stress EKG Tracingson 2023 Stress EKG Tracings [id number]#1 .00TIFF Normal [facility] Consent for Treatmenton 12-04 Consent for Treatment [id number]#1 .00TIFF Normal [facility] HbA1c HPLC (Bld) [Mass fract ion]on 11-28-2023 HbA1c (Bld) [Mass fraction] 5.8 % [facility] Consent for Treatmenton 11-06 Consent for Treatment [id number]#1 .00TIFF Normal [facility] Heart and Vascular Office/Cl inic Noteon 11-10-2023 Heart and Vascular Office/Clinic Note Chief Complaint New patient abnormal ekg History of Present Illness Brandon Long is a 47-year-old female who presents today [...] with voice recognition artificial intelligence software, specifically Track the Bet, Elixserve and or Fitzeal. Substitutions may have occurred due to the inherent limitations of voice recognition and artificial intelligence software. Documentation services were performed after patient or guardian consented to allow idemama eXperience to record this visit. KIRSTY life enrichment specialist and provider reviewed before signing. KIRSTY: [...] History Acute myocardial infarction: Father. Hypertension: Father. [facility] Comment on above: Result Comment: Elec tronically Signed By: Jasmin NGUYỄN, Aly Tim\.br\Date and Time Signed: 11/10/23 08:10 EST\.br\Electronically Co-Signed By: Thea De La Garza\.br\Date and Time Co-Signed: 10/30/23 18:42 EST Referrals Officeon 4 Referrals Office [id number]# 1.00TIFF [facility] Insurance Correspondenceon 0 10-31-2023 Insurance Correspondence [id number]# 1.00TIFF [facility] Consent for Treatmenton 10-07 Consent for Treatment [id number]#1 .00TIFF [facility] Physician Orderon 10-30-2023 Physician Order [id number]# 1.00TIFF [facility] Referrals Officeon 3 Referrals Office [id number]# 1.00TIFF Normal [facility] Referrals Officeon 3 Referrals Office [id number]# 1.00TIFF Normal [facility] Basophils Auto (Bld) [#/Vol] Ordered By: Lamont Long on 09-05-2023 Basophils (Bld) [#/Vol] 0.1 10*3/uL 0.0-0.2 [facility] Basophils/100 WBC Auto (Bld) Ordered By: Lamont Long on 09-05-2023 Basophils/100 WBC (Bld) 0.7 % . [facility] C reactive protein [Mass/vol ume] in Serum or PlasmaOrdered By: Lamont Long on 09-05-2023 CRP [Mass/Vol] 1.1 mg/dL 0.0-0.5 [facility] Eosinophils Auto (Bld) [#/Vo l]Ordered By: Lamont Long on 09-05-2023 Eosinophils (Bld) [#/Vol] 0.4 10*3/uL 0.0-0.45 [facility] Eosinophils/100 WBC Auto (Bl d)Ordered By: Lamont Long on 09-05-2023 Eosinophils/100 WBC (Bld) 4.7 % . [facility] Erythrocyte distribution wid th Auto (RBC) [Ratio]Ordered By: Lamont Long on 09-05-2023 Erythrocyte distribution width (RBC) [Ratio] 13.2 % 11.9-15.3 [facility] Erythrocyte sedimentation ra te by Photometric methodOrdered By: Lamont Long on 09-05-2023 ESR Photometric method (Bld) [Velocity] 15 mm/hr 0-19 [facility] Hematocrit Auto (Bld) [Volum e fraction]Ordered By: Lamont Long on 09-05-2023 Hematocrit (Bld) [Volume fraction] 39.0 % 34.0-46.4 [facility] Hemoglobin [Mass/volume] in BloodOrdered By: Lamont Long on 09-05-2023 Hemoglobin (Bld) [Mass/Vol] 13.4 g/dL 11.8-15.4 [facility] Leukocytes [#/volume] correc brenda for nucleated erythrocytes in Blood by Automated counOrdered By: Lamont Long on 09-05-2023 WBC corrected for nucl RBC Auto (Bld) [#/Vol] 9.4 10*3/uL 3.8-11.6 [facility] Lymphocytes Auto (Bld) [#/Vo l]Ordered By: Lamont Long on 09-05-2023 Lymphocytes (Bld) [#/Vol] 2.9 10*3/uL 1.00-4.8 [facility] Lymphocytes/100 WBC Auto (Bl d)Ordered By: Lamont Long on 09-05-2023 Lymphocytes/100 WBC (Bld) 31.2 % . [facility] MCH Auto (RBC) [Entitic mass ]Ordered By: Lamont Long on 09-05-2023 MCH (RBC) [Entitic mass] 28.9 pg 24.7-34.3 [facility] MCHC Auto (RBC) [Mass/Vol]Or dered By: Lamont Long on 09-05-2023 MCHC (RBC) [Mass/Vol] 34.3 g/dL 32.0-35.0 [facility] MCV Auto (RBC) [Entitic vol] Ordered By: Lamont Long on 09-05-2023 MCV (RBC) [Entitic vol] 84.3 fL 80-100 [facility] Monocytes Auto (Bld) [#/Vol] Ordered By: Lamont Long on 09-05-2023 Monocytes (Bld) [#/Vol] 0.6 10*3/uL 0.0-0.8 [facility] Monocytes/100 WBC Auto (Bld) Ordered By: Lamont Long on 09-05-2023 Monocytes/100 WBC (Bld) 6.6 % . [facility] Neutrophils Auto (Bld) [#/Vo l]Ordered By: Lamont Long on 09-05-2023 Neutrophils (Bld) [#/Vol] 5.3 10*3/uL 1.8-7.7 [facility] Neutrophils/100 WBC Auto (Bl d)Ordered By: Lamont Long on 09-05-2023 Neutrophils/100 WBC (Bld) 56.8 % . [facility] Nucleated erythrocytes [Pres ence] in Blood by Automated countOrdered By: Lamont Long on 09-05-2023 Nucleated RBC Auto Ql (Bld) 0.1 /100{WBC} 0-0.5 [facility] Platelet mean volume Auto (B ld) [Entitic vol]Ordered By: Lamont Long on 09-05-2023 Platelet mean volume (Bld) [Entitic vol] 8.5 fL 6.3-10.7 [facility] Platelets Auto (Bld) [#/Vol] Ordered By: Lamont Long on 09-05-2023 Platelets (Bld) [#/Vol] 269 10*3/uL 150-450 [facility] RBC Auto (Bld) [#/Vol]Ordere d By: Lamont Long on 09-05-2023 RBC (Bld) [#/Vol] 4.63 10*6/uL 3.60-5.[address] [facility] Serum homogeneous pattern an tinuclear antibody (DAYDAY) titerOrdered By: Lamont Long on 09-05-2023 Homogenous nuclear Ab pattern (S) [Titer] N/A [facility] Serum nuclear antibody titer Ordered By: Lamont Long on 09-05-2023 Nuclear Ab (S) [Titer] Negative . [facility] Comment on above: Negative <1:80 Borde rline 1:80 Positive >1:80ICAP nomenclature: AC-0For more information about Hep-2 cell patterns useANApatterns.org, the official website for theInternational Consensus on Antinuclear Antibody (DAYDAY)Patterns (ICAP).Performed at: [facility] [place] [id number] Director: Damir Young PhD, Phone: [phone] Serum or plasma cyclic adeno sine monophosphate measurement (moles/volume)Ordered By: Lamont Long on 09-05-2023 Adenosine monophosphate.cyclic [Moles/Vol] 7 units 0-19 [facility] Comment on above: Negative <20 Weak po sitive 20 - 39 Moderate positive 40 - 59 Strong positive >59Performed at: [id number] [address] [id number] Director: Damir Young PhD, Phone: [phone] Serum or plasma rheumatoid f actor measurement (units/volume)Ordered By: Lamont Long on 09-05-2023 Rheumatoid factor Qn 10.4 [IU]/mL <14.0 [facility] Comment on above: Performed at: [address] [id number] Director: Damir Young PhD, Phone: [phone] Urine 10 SGon 09-05-2023 Albumin DL <= 20 mg/L (U) [Mass/Vol] Negative [facility] Other pH (U) 5.5 [pH] [employer] Other Urine 10 SG Negative [employer] Other Urine 10 SG 1.020 [employer] Other Urine 10 SG 0.2 [employer] Other WBC Auto (Bld) [#/Vol]Ordere d By: Lamont Long on 09-05-2023 WBC (Bld) [#/Vol] 9.4 10*3/uL 3.8-11.6 [facility] XR KNEE 4+ VIEWS LEFTon 10-2 XR [...] BY: Rafat Thompson MD Normal Not Available Alanine aminotransferase [En zymatic activity/volume] in Serum or PlasmaOrdered By: Micheal Bowling on 06-18-2023 ALT [Catalytic activity/Vol] 16 U/L 7-52 [facility] Albumin [Mass/volume] in Ser um or Plasma by Bromocresol green (BCG) dye binding methoOrdered By: Micheal Bowling on 06-18-2023 Albumin BCG dye [Mass/Vol] 4.5 g/dL 3.5-5.7 [facility] Alkaline phosphatase [Enzyma tic activity/volume] in Serum or PlasmaOrdered By: Micheal Bowling on 06-18-2023 ALP [Catalytic activity/Vol] 53 U/L 34-104 [facility] Aspartate aminotransferase [ Enzymatic activity/volume] in Serum or PlasmaOrdered By: Micheal Bowling on 06-18-2023 AST [Catalytic activity/Vol] 14 U/L 13-39 [facility] Basophils Auto (Bld) [#/Vol] Ordered By: Micheal Bowling on 06-18-2023 Basophils (Bld) [#/Vol] 0.1 10*3/uL 0.0-0.2 [facility] Basophils/100 WBC Auto (Bld) Ordered By: Micheal Bowling on 06-18-2023 Basophils/100 WBC (Bld) 0.7 % . [facility] Bilirubin.total [Mass/volume ] in Serum or PlasmaOrdered By: Micheal Bowling on 06-18-2023 Bilirubin [Mass/Vol] 0.8 mg/dL 0.3-1.0 [facility] Calcium [Mass/volume] in Ser um or PlasmaOrdered By: Micheal Bowling on 06-18-2023 Calcium [Mass/Vol] 9.5 mg/dL 8.6-10.3 [facility] Carbon dioxide, total [Moles /volume] in Serum or PlasmaOrdered By: Micheal Bowling on 06-18-2023 CO2 [Moles/Vol] 29.6 mmol/L 21.0-31.0 [facility] Chloride [Moles/volume] in S lilia or PlasmaOrdered By: Micheal Bowling on 06-18-2023 Chloride [Moles/Vol] 104 mmol/L 98-107 [facility] Cholesterol [Mass/volume] in Serum or PlasmaOrdered By: Micheal Bowling on 06-18-2023 Cholesterol [Mass/Vol] 156 mg/dL 140-200 [facility] Comment on above: Chol less than 200 m g/dl low riskChol 201-239 mg/dl borderline riskChol 240 mg/dl and greater high risk Cholesterol in LDL Calc [Mas s/Vol]Ordered By: Micheal Bowling on 06-18-2023 Cholesterol in LDL [Mass/Vol] 84 mg/dL 0-100 [facility] Comment on above: LDL ATP III CLASSIFI CATIONLDL less than 100 mg/dL OptimalLDL 100-129 mg/dL Near or above optimalLDL 130-159 mg/dL Borderline highLDL 160-189 mg/dL HighLDL greater than 189 mg/dL Very high Cholesterol in VLDL Calc [Ma ss/Vol]Ordered By: Micheal Bowling on 06-18-2023 Cholesterol in VLDL [Mass/Vol] 28 mg/dL [facility] Complete Blood Count Auto Di ffon 06-18-2023 Basophils (Bld) [#/Vol] [id number] 10*3/uL Normal 0.0-0.2 10*3/uL [employer] Other Basophils/100 WBC (Bld) 0.700 % . % [employer] Other Eosinophils (Bld) [#/Vol] 0.452834180 10*3/uL High 0.0-0.45 10*3/uL [employer] Other Eosinophils/100 WBC (Bld) 4.400 % . % [employer] Other Erythrocyte distribution width (RBC) [Ratio] 13.200 % Normal 11.9-15.3 % [employer] Other Hematocrit (Bld) [Volume fraction] 41.300 % Normal 34.0-46.4 % [employer] Other Hemoglobin (Bld) [Mass/Vol] 13.415937 g/dL Normal 11.8-15.4 g/dL [employer] Other Lymphocytes (Bld) [#/Vol] 3.864351663 10*3/uL Normal 1.00-4.8 10*3/uL [employer] Other Lymphocytes/100 WBC (Bld) 28.800 % . % [employer] Other MCH (RBC) [Entitic mass] 28.0000 pg Normal 24.7-34.3 pg [employer] Other MCV (RBC) [Entitic vol] 84.7000 fL Normal 80-[address] [facility] [employer] Other Monocytes (Bld) [#/Vol] 0.007432430 10*3/uL Normal 0.0-0.8 10*3/uL [employer] Other Monocytes/100 WBC (Bld) 5.700 % . % [facility] [employer] Other Neutrophils (Bld) [#/Vol] 7.116066132 10*3/uL Normal 1.8-7.7 10*3/uL [employer] Other Neutrophils/100 WBC (Bld) 60.400 % . % [employer] Other Platelet mean volume (Bld) [Entitic vol] 8.5000 fL Normal 6.3-10.7 fL [employer] Other WBC (Bld) [#/Vol] 12.988434777 10*3/uL High 3. 8-11.6 10*3/uL [employer] Other Complete Blood Count Auto Diff 12.5 10*3/uL High 3.8-11.6 10*3/uL [employer] Other Complete Blood Count Auto Diff 33.1 g/dL Normal 32.0-35.0 g/dL [employer] Other Complete Blood Count Auto Diff 0.1 /100{WBC} Normal 0-0.5 /100{WBC} [employer] Other Complete Blood Count Auto Di ffOrdered By: Micheal Bowling on 06-18-2023 Platelets (Bld) [#/Vol] 284 10*3/uL 150-450 [facility] RBC (Bld) [#/Vol] 4.88 10*6/uL 3.60-5.[address] [facility] Creatinine [Mass/volume] in Serum or PlasmaOrdered By: Micheal Bowling on 06-18-2023 Creatinine [Mass/Vol] 0.89 mg/dL 0.60-1.20 [facility] Eosinophils Auto (Bld) [#/Vo l]Ordered By: Micheal Bowling on 06-18-2023 Eosinophils (Bld) [#/Vol] 0.5 10*3/uL 0.0-0.45 [facility] Eosinophils/100 WBC Auto (Bl d)Ordered By: Micheal Bowlnig on 06-18-2023 Eosinophils/100 WBC (Bld) 4.4 % . [facility] Erythrocyte distribution wid th Auto (RBC) [Ratio]Ordered By: Micheal Bowling on 06-18-2023 Erythrocyte distribution width (RBC) [Ratio] 13.2 % 11.9-15.3 [facility] Follitropin [Units/volume] i n Serum or PlasmaOrdered By: Micheal Bowling on 06-18-2023 Follitropin Qn 3.2 m[IU]/mL [facility] Comment on above: FEMALE NORMALS (THIERNO ENOPAUSE) MID-FOLLICULAR PHASE: 3.9-8.8 mIU/mL MID-CYCLE PEAK: 4.5-22.5 mIU/mL MID-LUTEAL PHASE: 1.8-5.1 mIU/mLFEMALE NORMALS (POSTMENOPAUSE): 16.7-113.6 mIU/mLMALE NORMALS: 1.3-19.3 mIU/mL Globulin Calc (S) [Mass/Vol] Ordered By: Micheal Bowling on 06-18-2023 Globulin (S) [Mass/Vol] 2.6 g/dL [facility] Glucose [Mass/volume] in Ser um or PlasmaOrdered By: Micheal Bowling on 06-18-2023 Glucose [Mass/Vol] 90 mg/dL 70-100 [facility] Comment on above: ADA recommended refe rence rangeRandom Glucose Reference Range is dependent on time and content of last meal. Glucose of more than 200 mg/dL in a nonstressed, ambulatory subject supports the diagnosis of Diabetes Mellitus. Hematocrit Auto (Bld) [Volum e fraction]Ordered By: Micheal Bowling on 06-18-2023 Hematocrit (Bld) [Volume fraction] 41.3 % 34.0-46.4 [facility] Hemoglobin [Mass/volume] in BloodOrdered By: Micheal Bowling on 06-18-2023 Hemoglobin (Bld) [Mass/Vol] 13.7 g/dL 11.8-15.4 [facility] Leukocytes [#/volume] correc brenda for nucleated erythrocytes in Blood by Automated counOrdered By: Micheal Bowling on 06-18-2023 WBC corrected for nucl RBC Auto (Bld) [#/Vol] 12.5 10*3/uL 3.8-11.6 [facility] Lymphocytes Auto (Bld) [#/Vo l]Ordered By: Micheal Bowling on 06-18-2023 Lymphocytes (Bld) [#/Vol] 3.6 10*3/uL 1.00-4.8 [facility] Lymphocytes/100 WBC Auto (Bl d)Ordered By: Micheal Bowling on 06-18-2023 Lymphocytes/100 WBC (Bld) 28.8 % . [facility] MCH Auto (RBC) [Entitic mass ]Ordered By: Micheal Bowling on 06-18-2023 MCH (RBC) [Entitic mass] 28.0 pg 24.7-34.3 [facility] MCHC Auto (RBC) [Mass/Vol]Or dered By: Micheal Bowling on 06-18-2023 MCHC (RBC) [Mass/Vol] 33.1 g/dL 32.0-35.0 [facility] MCV Auto (RBC) [Entitic vol] Ordered By: Micheal Bowling on 06-18-2023 MCV (RBC) [Entitic vol] 84.7 fL 80-100 [facility] Monocytes Auto (Bld) [#/Vol] Ordered By: Micheal Bowling on 06-18-2023 Monocytes (Bld) [#/Vol] 0.7 10*3/uL 0.0-0.8 [facility] Monocytes/100 WBC Auto (Bld) Ordered By: Micheal Bowling on 06-18-2023 Monocytes/100 WBC (Bld) 5.7 % . [facility] Neutrophils Auto (Bld) [#/Vo l]Ordered By: Micheal Bowling on 06-18-2023 Neutrophils (Bld) [#/Vol] 7.6 10*3/uL 1.8-7.7 [facility] Neutrophils/100 WBC Auto (Bl d)Ordered By: Micheal Bowling on 06-18-2023 Neutrophils/100 WBC (Bld) 60.4 % . [facility] No Panel InformationOrdered By: Micheal Bowling on 06-18-2023 Estimated GFR (CKD-EPI) > 60.0 mL/Min [facility] Creatinine Clearance (Chem N/A [facility] Nucleated erythrocytes [Pres ence] in Blood by Automated countOrdered By: Micheal Bowling on 06-18-2023 Nucleated RBC Auto Ql (Bld) 0.1 /100{WBC} 0-0.5 [facility] Platelet mean volume Auto (B ld) [Entitic vol]Ordered By: Micheal Bowling on 06-18-2023 Platelet mean volume (Bld) [Entitic vol] 8.5 fL 6.3-10.7 [facility] Potassium [Moles/volume] in Serum or PlasmaOrdered By: Micheal Bowling on 06-18-2023 Potassium [Moles/Vol] 3.8 mmol/L 3.5-5.1 [facility] Protein [Mass/volume] in Ser um or PlasmaOrdered By: Micheal Bowling on 06-18-2023 Protein [Mass/Vol] 7.1 g/dL 6.4-8.9 [facility] Serum or plasma albumin/glob ulin mass ratioOrdered By: Micheal Bowling on 06-18-2023 Albumin/Globulin [Mass ratio] 1.7 {ratio} [facility] Serum or plasma anion gap de terminationOrdered By: Micheal Bowling on 06-18-2023 Anion gap [Moles/Vol] 9.2 mmol/L 6.0-15.0 [facility] Serum or plasma high density lipoprotein (HDL) cholesterol measurementOrdered By: Micheal Bowling on 06-18-2023 Cholesterol in HDL [Mass/Vol] 43 mg/dL 23-92 [facility] Comment on above: HDL CHOL ATP-III CLA SSIFICATION Cardiovascular RiskHDL > or equal to 60 mg/dL LOWHDL < 40 mg/dL HIGH Serum or plasma total choles terol/high density lipoprotein (HDL) cholesterol mass ratOrdered By: Micheal Bowling on 06-18-2023 Cholesterol.total/Spring sterol in HDL [Mass ratio] 3.6 {ratio} <5.0 [facility] Sodium [Moles/volume] in Ser um or PlasmaOrdered By: Micheal Bowling on 06-18-2023 Sodium [Moles/Vol] 139 mmol/L 136-145 [facility] Thyrotropin [Units/volume] i n Serum or PlasmaOrdered By: Micheal Bowling on 06-18-2023 TSH Qn 3.76 m[IU]/L 0.45-5.33 [facility] Triglyceride [Mass/volume] i n Serum or PlasmaOrdered By: Micheal Bowling on 06-18-2023 Triglyceride [Mass/Vol] 144 mg/dL 0-149 [facility] Comment on above: TRIG ATP III CLASSIF ICATIONTRIG less than 150 mg/dL NormalTRIG 150-199 mg/dL Borderline highTRIG 200-500 mg/dL High TRIG greater than 500 mg/dL Very highStandard traceable to the Center for Disease Conrtrol and Prevention (CDC) test method. Urea nitrogen [Mass/volume] in Serum or PlasmaOrdered By: Micheal Bowling on 06-18-2023 Urea nitrogen [Mass/Vol] 12 mg/dL 7-25 [facility] WBC Auto (Bld) [#/Vol]Ordere d By: Micheal Bowling on 06-18-2023 WBC (Bld) [#/Vol] 12.5 10*3/uL 3.8-11.[address] [facility] Microalbumin Analyzeron 06-06 Albumin DL <= 20 mg/L (U) [Mass/Vol] mg/dL [employer] Other Albumin Test strip detection limit <= 20 mg/L (U) [Mass/Vol] 30 [employer] Other Creatinine (U) [Mass/Vol] 300 mg/dL [employer] Other Urine 10 SGon 06-16-2023 Albumin DL <= 20 mg/L (U) [Mass/Vol] 30 mg/dL [employer] Other Albumin DL <= 20 mg/L (U) [Mass/Vol] Negative [employer] Other pH (U) 6.0 [pH] [employer] Other Urine 10 SG Negative [employer] Other Urine 10 SG 1.030 [employer] Other Urine 10 SG 0.2 [employer] Other Coding Summary.on 02-06-2023 Coding Summary. CD:[id number] W w+PGhlYWQ+RN8GZTNlG93 heKUdtM8aZ7HOAPcIIzci HGZTLXeZDkYihcTfYU6eo XNjZXJu IC8+WD0aUKPkEhmzlHNyf 4Q7tAX4K29lpd3tYAzvnS H5VJVhVwEhzxjqh9dnzYo 6IDcuNmluOyBt QUKpcY10IEL6vH27Ve49b ADetFTrm5vdiDb8QeYkRA PzYGS5sJuxEBzhs3VjQQC nR73ttAQut3K4 PARadHwmuUSvDxFjsZI3x W7hPRxvhcoow6tlmhkwKk q9ss74zXPaj0U4iDI4U0F mqmB4HYFrbBHb VpmjkIPPoT6whumyc0uzi ridCkVhOPTvPCb6CEd4CL KeuFnqLpHoJT17IAM1GTG szeVmA2EcOWUh aPhpGpP2o9Y4Ki7WE1FKY cprV6NXTCMAMEzxgHR+PC 80kc83S4WfFegrYuj4MGM tEAT2aME0lJ4o MOIsXLaml8W5zLL5K5Rbo eAdpy7cn9qgHHSmJMztM9 5qsQNau3X8DYRuoYD1HHQ hdTbsLsTyiU21 Oyc+XACosOrjr0JsDllbo 8nmd9usnTm8BbpjURNcup VfnVpiJWN1u6TkCa2dATF qmKH5hKE9pK3v NwMaCbJ0XReyZ798YdDja KXvBestP86rD1AbgZU+PH QbSog7RRPagWinUR0nB6O hZGRpbmctbGVm kJlnLX1tVQOvtzirIDOrw F7lNMWhQ2x0FvUkHwH7GY aeI3HvLTLbmoxfTh45iN1 zRgUiWtC3BTls W8DlvsP9RCOcvNNoVPjjX SD6O56vq2K8SZSaJVJsTS M2tIX6mH4xxSnmkycyxLX mdDsgdmVydGlj PVlfLZodR702UHJgfPhlP kNvZGluZyBEYXRlOiAgMD UvMDQvMjAyMzwvdGQ+PHR zWWO3lNlgZFYf qIRaZVraFl9tqLkjrMtpY B9oXPZzdgmdJWQlaL1fIQ RllOOncFdmJJ8iGKTsbeh wi422MhUcLHW6 OUIxnYYnO5EoyX8mEwVhD OFmSXAoN8HccVLxDYmqF2 49GBjkAeA9LXDzwwNuE0V sLWFsaWduOiB0 w0G0Fo4Bk5KfqcgvO8Vdc BFvKqZtGonnDQv3X1UhTt wvdHI+OZ80JKHnNC26BIy 1FXN1dVagZSiy ZHReM9KmyN9vPqXnCGRhE GRkOyc+PHRhYmxlIHdpZH RoPScxMDAlJyBzdHlsZT0 iTl2vRPMcSJYc zUyqiXPbVgNxl1dbZTRsR LolJK6loCxqN3HtaKR6NO Gov3c0Zk86C23wG1WwgQY +FVTzmTE0tGZ5 mN3qMjRkRyM3JOitL431G wZzpUNlDizds2ozm8bbkO j2EzV7MGSkzfHrmSblGIS 4r1KbTk11R24t IHdpZHRoPSIxNSUiIHZhb Qtfcz1vmS5yMe1+PGNvbC E5kSG6tV6eJxTcZnH1NNx zB631YcNzmOIw Lohkm9vly6mkwNr1HgImJ AIgsqGojWiaKRP8l5YeYb 91Q0DlxGyok7NmFmp3mp7 6sGGqd7D8hMB2 W2TvHYOyniqdePNlvDxdW P3cQIUarbleNWPoqM2dZF MfC5x4QaFuRrQ9HLqiY3Z tkfO1OVHmtGJz IDChdFWAcL2ylnecc8mxe yzzRbRtHGVzOEc8LZv9LT RyqYnyClWgVAN3GbF8DMR 6eMCjpB8ltZsd dxwrdB5bHxk+TSR5fECzz ZJVQU5vZkvpqFH+PHRkIH J9rCzjZBwlUECqsO7eRIR gX9m2OeVeViR6 LUrxE1YdudE0XWXgxETwI FXhvMAKyB1ihnpty6maig siDjGmAEPeXXy8AJj8JGL saWduOiBsZWZ0 FgG2VZA1vPQynH7vcEbup ceqlB5yBaz+QmlydGggRG K3OXj3F0GsEmk0FULniPl pAD9byCViZOus Sh4fyUfttRnrZV8xCCMlu wkwy601ItRkj5jcPPFnhI NeNQvrSVH5S72jp1D6YZI eYLFqQIW6pOX1 xO8mnFvckgimaRRnxCrys pPhbSbsAJksUVkoV971BD ZmaDlqDpFrFGo4R1DbVbg 3BPFrwOcsXA9v uLKyVLkzPj6aeYilvUlzV W1wWJWqoizwl349LxEpr2 rdQQZrvADuWKdfKKB9N22 ro1M5IFShFKHq WAD6fAB3rJ8dwUrspdgoe GVmdDsgdmVydGljYWwtYW lzT410SAOllYtaZrGqyZo 1D1JtToa2IBZn bVuiLM3jxNOhYRoeQr3az KvdyBmkSX7dKUZwpfenu3 56KrMxo7nhVMOstMKnTTj iPVJ0H08ex3U7 XKKwMLPuFZK3kDR2oJ0pm GlnbjogbGVmdDsgdmVydG rgDLbgQLvsE879LTIadOy nPlBhdGllbnQg LHjdDEw2Z8HiRmubjNY+P R59INFiPU69tCUkdWYrl4 vuvNd7EwRlSDNjYGO7tCp sCTfgb4JcJNKx S17phQYzk6Y8HJLcwLhmf LBaGxEyqAE0hA2jVHaqxj nie1ovfbcwTnxzj7zaxn6 5jO47L10pQRwe ZHRoPSIzMCUiIHZhbGlnb w3xkW1fGb1+OZLziFN0vE X0fS7tJWPwObN9ZPmhJ54 9InRvcCIvPjxj y5wnu2ekmFu8NfH2QFQoj kMznHkkTKR4u0GdSz36T8 9sIHdpZHRoPSIyMCUiIHZ jnGikwl2uhL9n Ii8+JOUdkWW2rPE3jM7sH jPjUtG3ABzbU003OnVlvN DzTnsnI48pC4XtaFL+PHR gFme0QJTbbHuz QZ7spMOuMJmqJk6iOID4Q xPdSbUzELqjB3CjKNWthi xjrfnqmSP0TJQvZBJpmA2 7Sm0yrYogQWHi aAZZuP7hdyygt5leugntS xYbXDDyAYj2RXm7EWRfxL nhDxZlDXP8YeE4LXJ1yBU kbC5utBukunmg lI5kI0FpLOFwqcmxNn50e E4sBxYrVkQ7DVbeWuk+Ql OFY89fMLBZHnL0V0NaImb 2KWSrmBxjBF9m aNGoGJqzQu9shHengRwwC E7gZOHhhsdvQFTxpZ4tBE RubGZyiXotID2fQEZwbsr fw006VmXqPFD1 VVQkoYPcR0XcvY0qRfEaE SFwPPNqL6FcsCZvIZapK6 01ZDszJgZ2GLHveuIfW2U sLWFsaWduOiB0 p9H9Es4vWx1sIQ8lSQy0M W63AK18eDBjy3V6lFN3P8 DaEEZjbdovwohqwJV5LBV iYOTtwK78cDLf BPgbHc2nq1K6b393NXIuO FGypV78Lw6vvBewUVDbbV MLkL7pctwio0taagneBtS oZLNzWNs8PCe2 GBVuvNozNeZcTMW8XrN4Q XN9rSCwxU7axRgblomoiY 9wOyc+BWIrNYDelhK2N6O vJpg9CCXhqZdt AM5amHCuMKglSh7imMlym ZljNH6kAITngiljVTXinL 1lTANtpVXotGwnFS8mLTC nzxnao792BlEo EZL2QHKbvGCoO9IfhI7qR hNwKURaEVOrK5WqbMEqNS arY091ULhsJfQ8ZOPzbsH jL5LoSYAxsEjg LvM8u9X2Ct3YWY1gjIN1A 3MaQyf8DYPjfQxbYA0cmI QgAQcxDl8vxAmpjByyOO6 wNTBpbjtwYWRk lC7xHHIhqFMbcTfvHR1pP LJwwvdgm441BpErBQL4WJ PttRDdL6JozM2pHzNzGDQ sAQEyE7KqjDQq GDofF536UPugVeR9CYLxa fEnH0EsQNYjdEusBuG6p6 G2Nd5WxBGyN4KbF6i1H6Z kPjwvdHI+PC90 WNKhDW31gXRxlDHcw3bvx Gl9SyAoLLFvWSK2rNqbHY tig8DbSRPlA83juOSjg0V 6IGNvbGxhcHNl YqIkyYG1fS6eHYewbutor 9fswrfyGkmtu2cazx17eN 24S47hOIpdTMCaBQTmEJK fFGBgkHtkfy3l vB2aZh9+ZQXxnOX2xMS1b G8vFyGaVaT7OUmjQ532Ee JifBQuZeahu4yxr9uedIr 9IjIwJSIgdmFs iCrrZLV9o8HnFo20P72iL HdpZHRoPSIyMCUiIHZhbG kffs0riH5eBi2+CU2mf3p dcq28sY90dFJ+ FZYtPOU2gFvwDMlnFRVdr O9aRPnpPsB5LZVoWlTxxY 17hMKjEFdhUk9tiFlgoOx cUK0fAXOyuemj g950FkUiw9vbRMUpdCEaU ZbqWMH9L78dd5X0OPRvPC WpZXP2fGB2uH2pzWrvzzm gbGVmdDsgdmVy oGamCZrlTFbuB247YNUvo SwpApHsaCUqE6jrskZXSH 1lOjwvdGQ+YUQuCEN6uAj uQQjtLQYxeT3k BTNsS7k9NgTrQyF9GRxzZ 9KmhuO8VIQtaTCdTMQweJ GVpI1fgnamc9thmkvbXzU mJKQqBMc8UYl3 SEFkjScgEmJjGVD6HjE0K XN0cPXkeS0zuRlzwexnbD 9wOyc+RklOOjwvdGQ+PHR cHJD3eRuoKLhf NJMcxH4zOFOuV9v4RbIgP kM8APlzG6ZamkD2FQZmaE MkHTAmxSMLkJ1kzcvlp3t vcjogIzAwMDAw XIw1WWq9FRUmxLoyUvYfI ZW7XoJ8ZEN1wTRslG1onS fouxisgS3lRzn+TVJOOjw vdGQ+PHRkIHN0 vOetXZbgOJWveX4oMEKzH 7h5QpThSgC9XNxaE5Gkkl Y0QCRjwWQiBHWydUNZkN9 dwjlrf2jajpdl QoHbEZJbRHu8JHj9UWWrs PykWeAsWIM6YcX6DFB5jV FlyY3lcMwspsieoL1hHhe +XPG5MBM8TN32 FS81P2IvDfvjeZAhwFE+P HRhYmxlIHdpZHRoPScxMD UyXxSjsZhdOO9mZd1hAEX yLWNvbGxhcHNl RyLie8tr (more content not included)... Normal [facility] Auto Diffon 02-04-2023 Basophils/100 WBC (Bld) 0.9 % Normal 0.0-2.0 [facility] Comment on above: Order Comment: Order Added by Discern Expert. Performed By: #### 2 [id number], [id number] ####[facility] [id number] [place] [address] Basophils/Leukocytes Auto (Bld) [Pure # fraction] 0.1 E9/L Normal 0.0-0.2 [facility] Comment on above: Order Comment: Order Added by Discern Expert. Performed By: #### 2 [id number], [id number], [id number], [id number] ####[facility] [address] [place] [address] Eosinophils/100 WBC (Bld) 1.4 % Normal 0.0-8.0 [facility] Comment on above: Order Comment: Order Added by Discern Expert. Performed By: #### 2 [id number], [id number], [id number], [id number] ####[address] [address] Eosinophils/Leukocytes Auto (Bld) [Pure # fraction] 0.2 E9/L Normal 0.0-0.5 [facility] Comment on above: Order Comment: Order Added by Discern Expert. Performed By: #### 2 [id number], [id number], 0678129, [id number], [id number] ####[address] [address] Lymphocytes/100 WBC (Bld) 27.2 % Normal 14.0-50.0 [facility] Comment on above: Order Comment: Order Added by Jacek Expert. Performed By: #### 2 [id number], [id number], [id number], 7168882, [id number], [id number] ####[address] [address] Lymphocytes/Leukocytes Auto (Bld) [Pure # fraction] 3.3 E9/L Normal 1.0-4.0 [facility] Comment on above: Order Comment: Order Added by Jacek Expert. Performed By: #### 2 069749, 6069990, 4769273, 1663966, 47130897, 3003762 ####[address] [address] Monocytes/100 WBC (Bld) 5.4 % Normal 4.0-14.0 [facility] Comment on above: Order Comment: Order Added by Jacek Expert. Performed By: #### 2 573619, 4944523, 6018982, 6049925, 16751098, 0330264 ####[address] [address] Monocytes/Leukocytes Auto (Bld) [Pure # fraction] 0.6 E9/L Normal 0.2-1.0 [facility] Comment on above: Order Comment: Order Added by Discern Expert. Performed By: #### 2 023891, 0465971, 7515402, 8734034, 30488385, 9893082 ####[facility] [address] [place] [address] Neutrophils/100 WBC (Bld) 65.1 % Normal 36.0-75.0 [facility] Comment on above: Order Comment: Order Added by Discern Expert. Performed By: #### 2 113601, 8508918, 8713001, 3102384, 58607396, 1170175 ####[facility] [address] [place] [address] Neutrophils/Leukocytes Auto (Bld) [Pure # fraction] 7.8 E9/L High 2.0-7.5 [facility] Comment on above: Order Comment: Order Added by Discern Expert. Performed By: #### 2 215918, 9470111, 2103577, 1217521, 07533872, 9508190 ####[facility] [address] [place] [address] BMPon 02-04-2023 Creatinine [Mass/Vol] 0.9 mg/dL Normal 0.5-1.3 [facility] Comment on above: Performed By: #### 2 262081, 5270089, 8491348, 2430003, 45584540, 9575877 ####[facility] [address] [place] [address] Urea nitrogen [Mass/Vol] 9 mg/dL Normal 5-21 [facility] Comment on above: Performed By: #### 2 219639, 5133111, 2628623, 8359625, 49936686, 6867493 ####[facility] [address] [place] [address] Urea nitrogen/Creatinine [Mass ratio] 10 No Units Normal 10-20 [facility] Comment on above: Performed By: #### 2 967732, 6563082, 5573985, 3740195, 16833647, 8299640 ####[facility] [address] [place] [address] Anion gap [Moles/Vol] 11 mmol/L Normal 6-16 [facility] Comment on above: Performed By: #### 2 629042, 3904313, 6806977, 6955954, 97988678, 7067287 ####[facility] [address] [place] [address] Calcium [Mass/Vol] 9.2 mg/dL Normal 8.9-11.1 [facility] Comment on above: Performed By: #### 2 776935, 2735898, 0822841, 0584125, 25864823, 4774485 ####[facility] [address] [place] [address] Chloride [Moles/Vol] 102 mmol/L Normal 101-111 [facility] Comment on above: Performed By: #### 2 227000, 5301272, 8866446, 5399669, 15944360, 4819660 ####[facility] [address] [place] [address] CO2 [Moles/Vol] 26 mmol/L Normal 21-31 [facility] Comment on above: Performed By: #### 2 239636, 7324375, 3723086, 9988915, 91138601, 5322182 ####[facility] [address] [place] [address] Glucose [Mass/Vol] 101 mg/dL Normal 55-199 [facility] Comment on above: Result Comment: If t his glucose result represents a fasting glucose, interpretation should refer to the following reference range: 55-99 mg/dL Performed By: #### 2 498873, 1628895, 6426133, 6274316, 83473797, 7918633 ####[facility] [address] [place] [address] Potassium [Moles/Vol] 3.7 mmol/L Normal 3.5-5.3 [facility] Comment on above: Performed By: #### 2 362683, 4625683, 9326835, 0405997, 71281136, 4891911 ####[facility] [address] [place] [address] Sodium [Moles/Vol] 135 mmol/L Normal 135-145 [facility] Comment on above: Performed By: #### 2 073581, 2622536, 4533306, 7805925, 39142155, 0844177 ####[address] [address] CBC w/ Auto Diffon 3 Erythrocyte distribution width (RBC) [Ratio] 12.8 % Normal 10.9-14.2 [facility] Comment on above: Performed By: #### 2 075484, 9267437, 0049396, 3829267, 37074194, 9431718 ####[address] [address] Hematocrit (Bld) [Volume fraction] 39.7 % Normal 34.0-46.0 [facility] Comment on above: Performed By: #### 2 014825, 3204055, 2767280, 1482090, 80220703, 5119033 ####[address] [address] Hemoglobin (Bld) [Mass/Vol] 13.4 g/dL Normal 12.0-16.0 [facility] Comment on above: Performed By: #### 2 515147, 2687316, 9788551, 0494703, 33189977, 5125175 ####[address] [address] MCH (RBC) [Entitic mass] 27.7 pg Normal 27.0-34.0 [facility] Comment on above: Performed By: #### 2 228198, 7745791, 4126821, 5877986, 50510526, 1333524 ####[address] [address] MCHC (RBC) [Mass/Vol] 33.7 g/dL Normal 31.4-36.0 [facility] Comment on above: Performed By: #### 2 617409, 0063923, 5288335, 9995424, 74152657, 5072763 ####[facility] [address] [place] [address] MCV (RBC) [Entitic vol] 82.4 fL Normal 80.0-100.0 [facility] Comment on above: Performed By: #### 2 089280, 2813298, 4009443, 0747760, 80320032, 7116593 ####[address] [address] Platelet mean volume (Bld) [Entitic vol] 8.4 fL Normal 6.4-10.8 [facility] Comment on above: Performed By: #### 2 874771, 3750352, 9003519, 5221452, 19191582, 5414661 ####[address] [address] Platelets (Bld) [#/Vol] 313.0 E9/L Normal 150.0-500.0 [facility] Comment on above: Performed By: #### 2 820866, 6706812, 3406640, 2781770, 52983148, 6750798 ####[address] [address] RBC (Bld) [#/Vol] 4.8 E12/L Normal 4.3-5.9 [facility] Comment on above: Performed By: #### 2 [id number], [id number], 5385970, 1060408, [id number], 7582790 ####[address] [address] WBC corrected for nucl RBC Auto (Bld) [#/Vol] 12.0 E9/L High 4.0-11.0 [facility] Comment on above: Performed By: #### 2 270017, 0476544, 8631640, 7583744, [id number], 5678142 ####[address] [place] [address] CHEMISTRYOrdered By: SYSTEM SYSTEM on 02-04-2023 Albumin [...] 3.7 mmol/L Normal 3.5 - 5.3 mmol/L [facility] Protein [Mass/Vol] 7.6 g/dL Normal 6.0 - 7.8 gm/dL [facility] Sodium [Moles/Vol] 135 mmol/L Normal 135 - 145 mmol/L [facility] Urea nitrogen [Mass/Vol] 9 mg/dL Normal 5 - 21 mg/dL [facility] Urea nitrogen/Creatinine [Mass ratio] 10 mg/mg Normal 10 - [address] Abdomen/Pelvis w/o Contra ston 02-04-2023 [...] Elias Melvin DO Transcribed by: MERLINE Technologist: VANNESSA Technical Comments Rectal Contrast Given? No Oral contrast amount in ml's: 0 Normal [facility] Consent for Treatmenton Consent for Treatment [id number] .[id number]:127 Normal [facility] Discharge Instructionson Discharge Instructions [id number] 1.00CD:127 Normal [facility] ED Clinical Summaryon 2022 ED Clinical Summary [id number] ED Clinical Summary Person Information [facility] Age[facility] 47 Years : 1975 Sex: Female Language: Scottish PCP: MICHEAL BOWLING DO Marital Status: Visit Id: Visit Reason: [...] 02/04/2023 20:38:10 02/04/2023 20:38:10 02/04/2023 20:38:10 ADDRESS: [facility] [place] [id number] PHYS DOC NOTES: MEDICAL INFORMATION: Prescriptions Given: New [...] Colitis Follow up: With: Address: When: MICHEAL BOWLING [address] [place] [id number] Business (1) In 3 days 02/07/2023 Comments: [...] or worsening symptoms. DIAGNOSIS: Acute colitis Normal [facility] ED Note-Physicianon 02-05-20 ED Note-Physician Basic Information [...] and Complexity of Problems Differential Diagnosis: [] [facility] Data External documents reviewed: [] My EKG [...] q8hr Follow-up With When Contact Information MICHEAL BOWLING In 3 days 02/07/2023 EDT [address] [place] [address]- Business (1) Additional Instructions: Take the antibiotics twice a day as prescribed till you have completed the course you can use the Bentyl, Zofran every 6-8 hours as needed for nausea and abdominal p (more content not included)... Normal [facility] Comment on above: Result Comment: Elec tronically Signed By: Gila Beasley DO\.br\Date and Time Signed: 02/04/23 20:20 EDT ED [...] you start to feel better. ? Take thoc-mjx-sniehzy and prescription medicines only as told by [...] provider. Document Revised: 05/29/2021 Document Reviewed: 05/29/2021 Elsevier Patient Education ? 2022 [employer] Normal [facility] ED Patient Summaryon 023 ED Patient Summary [address] [address] Patient Discharge Instructions Person Information Name: BRANDON LONG Age: 47 Years Arrival Date: 02/04/2023 18:45:23 Discharge Diagnosis: Acute colitis Primary Care Physician: MICHEAL BOWLING DO Provider Information Primary Provider: Gila Beasley DO Advanced Arranger Assembler:None The exam and treatment you received in the Emergency Department were for an urgent problem and are not intended as complete care. It is important that you follow up with a doctor, nurse practitioner, or physician?s security assistant for ongoing care. If your symptoms become worse or you do not improve as expected and you are unable to reach your usual health care provider, you should return to the Emergency Department. We are available 24 hours a day. BRANDON LONG has been given the following list of patient education materials, prescriptions and follow-up instructions: Follow-up Instructions: With: Address: When: MICHEAL BOWLING [address] [place] [address] [phone] Business (1) In 3 days 02/07/2023 Comments: [...] opioids can be used to help relieve nywuaxcc-rz-sioend pain and are often prescribed following a [...] Visit [email or web address]. (more content not included)... Normal [facility] HEMATOLOGYOrdered By: SYSTEM SYSTEM on 02-04-2023 Basophils/100 [...] 27.7 pg Normal 27.0 - 34.0 pg FT HemeAutoSS MCHC (RBC) [Mass/Vol] 33.7 g/dL Normal 31.4 - 36.0 gm/dL FT HemeAutoSS MCV (RBC) [Entitic vol] 82.4 fL Normal 80.0 - 100.0 fL FT HemeAutoSS Platelet mean volume (Bld) [Entitic vol] 8.4 fL Normal 6.4 - 10.8 fL FT HemeAutoSS Platelets (Bld) [#/Vol] 313.0 E9/L Normal 150. 0 - 500.0 E9/L FT HemeAutoSS RBC (Bld) [#/Vol] 4.8 E12/L Normal 4.3 - 5.9 E12/L FT HemeAutoSS WBC corrected for nucl RBC Auto (Bld) [#/Vol] 12.0 E9/L High 4.0 - 11.0 E9/L [facility] HemeAutoSS Hep Func Panelon 02-04-2023 Albumin [Mass/Vol] 4.1 g/dL Normal 3.3-5.0 [facility] Comment on above: Performed By: #### 2 400249, 5327247, 3081046, 9337459, 89281048, 7959401 ####[facility] [address] [place] [address] Albumin/Globulin (S) [Mass conc ratio] 1.2 Normal 1.1-2.2 [facility] Comment on above: Performed By: #### 2 850706, 8015056, 8253913, 3081022, 98790443, 5925446 ####[facility] [address] [place] [address] ALP [Catalytic activity/Vol] 47 Int._Unit/L Normal 21-98 [facility] Comment on above: Performed By: #### 2 077207, 2358828, 6384636, 2333798, 85448856, 4686005 ####[facility] [address] [place] [address] ALT No additional P-5'-P [Catalytic activity/Vol] 24 Int._Unit/L Normal 6-46 [facility] Comment on above: Performed By: #### 2 613515, 3133234, 6812288, 6729438, 64907410, 5055500 ####[facility] [address] [place] [address] AST [Catalytic activity/Vol] 20 Int._Unit/L Normal 5-43 [facility] Comment on above: Performed By: #### 2 386086, 3119650, 9003911, 0121429, 70020781, 3178802 ####[facility] [address] [place] [address] Bilirubin [Mass/Vol] 0.9 mg/dL Normal 0.0-1.1 [facility] Comment on above: Performed By: #### 2 476956, 9416191, 6304784, 7038938, 57027281, 7830736 ####[address] [address] Bilirubin.direct [Mass/Vol] 0.2 mg/dL Normal 0.1-0.4 [facility] Comment on above: Performed By: #### 2 962623, 4612621, 2794807, 7835207, 36653726, 8226636 ####[address] [place] [address] Bilirubin.indirect [Mass or moles/Vol] 0.7 mg/dL Normal 0.1-0.9 [facility] Comment on above: Performed By: #### 2 945939, 0921074, 5847320, 4665258, 20547669, 3800077 ####[facility] [address] [place] [address] Globulin (S) [Mass/Vol] 3.5 g/dL Normal 1.4-4.0 [facility] Comment on above: Performed By: #### 2 971340, 4559679, 3131386, 6740116, 87807810, 1375274 ####[facility] [address] [place] [address] Protein [Mass/Vol] 7.6 g/dL Normal 6.0-7.8 [facility] Comment on above: Performed By: #### 2 664671, 3113655, 9017270, 6202274, 69355420, 4785177 ####[facility] [address] [place] [address] Lipase Levelon 02-04-2023 Lipase [Catalytic activity/Vol] 48 U/L Normal 13-58 [facility] Comment on above: Performed By: #### 2 229364, 1350742, 7609007, 1764365, 50142442, 4479270 ####[facility] [address] [place] [address] UA With Cult Reflexon 2022 Bilirubin Ql (U) Negative Normal Negative [facility] Comment on above: Performed By: #### 1 3913536 ####[address] [address] Clarity (U) CLEAR Normal Clear [facility] Comment on above: Performed By: #### 1 2602257 ####[address] [address] Color (U) YELLOW Normal Yellow [facility] Comment on above: Performed By: #### 1 3382184 ####[address] [address] Epithelial cells.squamous LM.HPF (Urine sed) [#/Area] 0-2 Normal 0-2 [facility] Comment on above: Performed By: #### 1 6005314 ####[facility] [address] [place] [address] Glucose Test strip (U) [Mass/Vol] Negative Normal Negative [facility] Comment on above: Performed By: #### 1 3832998 ####[address] [address] Hemoglobin Ql (U) Negative Normal Negative [facility] Comment on above: Performed By: #### 1 0576067 ####[address] [place] [address] Ketones (U) [Mass/Vol] Negative Normal Negative [facility] Comment on above: Performed By: #### 1 2325729 ####[address] [address] [place].plasma/[place]. RBC (Bld) [Mass ratio] 0-3 Normal 0-3 [facility] Comment on above: Performed By: #### 1 1807333 ####[address] [address] Nitrite Ql (U) Negative Normal Negative [facility] Comment on above: Performed By: #### 1 9650191 ####[address] [address] pH (U) 6.5 [pH] Invalid Interpretation Code 5.0-9.0 [facility] Comment on above: Performed By: #### 1 9908745 ####[address] [address] Protein (U) [Mass/Vol] Negative Normal Negative [facility] Comment on above: Performed By: #### 1 7722444 ####[address] [address] Specific gravity (U) [Rel density] <=1.005 Invalid Interpretation Code 1.005-1.030 [facility] Comment on above: Performed By: #### 1 [id number] ####[address] [address] Type of Urine collection method Clean Catch Normal [facility] Comment on above: Performed By: #### 1 1428917 ####[address] [address] Urobilinogen Qn (U) 0.2 {Melina'U}/dL Normal 0.0-1.0 [facility] Comment on above: Performed By: #### 1 2709587 ####[address] [address] WBC Auto Ql (U) Negative Normal Negative [facility] Comment on above: Performed By: #### 1 [id number] ####[facility] [address] [place] [address] WBC LM.HPF (Urine sed) [#/Area] 0-5 Normal 0-5 [facility] Comment on above: Performed By: #### 1 4988580 ####[facility] [address] [place] [address] URINALYSISOrdered By: Praful Benson on 02-04-2023 Bilirubin Ql (U) Negative (02/04/23 8:13 PM) Normal Negative [facility] UA Auto SS Clarity (U) Clear (02/04/23 8:13 PM) Normal Clear [facility] UA Auto SS Color (U) Yellow (02/04/23 [...] PM) Normal Negative [facility] UA Auto SS [place].plasma/[place]. RBC (Bld) [Mass ratio] 0-3 /HPF Normal 0-3/HPF [facility] UA A uto SS Nitrite Ql (U) [...] [facility] UA Auto SS Urobilinogen Qn (U) 0.9721526 {Melina'U}/dL Normal 0.0 - 1.0 EU/dL [facility] UA Auto SS WBC Auto Ql (U) Negative (02/04/23 8:13 PM) Normal Negative [facility] UA Auto SS WBC LM.HPF (Urine sed) [#/Area] 0-5 /HPF Normal 0-5/HPF [facility] UA Auto SS eGFRon 02-04-2023 GFR/1.73 sq M.predicted among non-blacks MDRD (S/P/Bld) [Vol rate/Area] 80 mL/min/1.73 m2 Normal >=59 [facility] Comment on above: Order Comment: Order added by Discern Expert. Result Comment: Chinchilla Farmer mónica kidney disease could be indicated at eGFR's of less than 60 mL/min/1.73m2. Kidney failure is indicated at less than 15 mL/min/1.73m2. Performed By: #### 2 196169, 3211714, 1289548, 0980850, 13204227, 0270138 ####[facility] [address] [place] [address] A1C HEMOGLOBINon 01-17-2023 HbA1c (Bld) [Mass fraction] 5.0 % [facility] Other HbA1c (Bld) [Mass fraction]o n 01-17-2023 A1C HEMOGLOBIN [facility] Other CARDIAC KRAIG ADMITon 023 CK [Catalytic activity/Vol] 70 U/L Normal 26-192 [facility] Comment on above: Performed By: #### I NFLUAB #### [facility] [address] [place], [place] [address] Dr. Nathanael Freedman CK.MB [Mass/Vol] 0.96 ng/mL Normal <=3.60 [facility] Comment on above: Performed By: #### I NFLUAB #### [facility] [address] [place], [place] [address] Dr. Nathanael Freedman HSTROP 6.9 pg/mL Normal 4.0-51.3 [facility] Comment on above: Result Comment: CUT- OFF POINTS HAVE BEEN ESTABLISHED BASED ON THE FOURTH UNIVERSAL DEFINITIONS OF MYOCARDIAL INFARCTION. THE UPPER REFERENCE LIMIT (URL) OF TROPONIN, DEFINED THE 99TH PERCENTILE OF cTnI DISTRIBUTION IN A REFERENCE POPULATION, HAS BEEN CONFIRMED THE DECISION THRESHOLD FOR PR DIAGNOSIS. Performed By: #### I NFLUAB #### [facility] [address] [place] [address] Dr. Nathanael Freedman STEFANIA 43 ng/mL Normal 9-82 [facility] Comment on above: Performed By: #### I NFLUAB #### [facility] [address] [place] [address] Dr. Nathanael Freedman CBC AUTO DIFFon 01-12-2023 BASO # 0.1 103/ul Normal 0.0-0.1 [facility] Comment on above: Performed By: #### C BC #### [facility] [address] [place] [address] Dr. Nathanael Freedman Basophils/100 WBC (Bld) 0.5 % Normal 0.2-2.0 [facility] Comment on above: Performed By: #### C BC #### [facility] [address] [place] [address] Dr. Nathanael Freedman EO # 0.1 103/ul Normal 0.0-0.7 [facility] Comment on above: Performed By: #### C BC #### [facility] [address] [place] [address] Dr. Nathanael Freedman Eosinophils/100 WBC (Bld) 1.0 % Normal 0.9-7.0 [facility] Comment on above: Performed By: #### C BC #### [facility] [address] [place] [address] Dr. Nathanael Freedman Erythrocyte distribution width (RBC) [Ratio] 12.6 % Normal 11.0-15.0 [facility] Comment on above: Performed By: #### C BC #### [facility] [address] [place] [address] Dr. Nathanael Freedman Hematocrit (Bld) [Volume fraction] 41.5 % Normal 36.0-48.0 [facility] Comment on above: Performed By: #### C BC #### [facility] [address] [place] [address] [address] Nathanael Freedman Hemoglobin (Bld) [Mass/Vol] 14.4 g/dL Normal 12.0-16.0 [facility] Comment on above: Performed By: #### C BC #### [facility] [address] [address] [address] Nathanael Freedman IG # 0.07 10e3/ul Critically high 0.00-0.03 [facility] Comment on above: Performed By: #### C BC #### [facility] [address] [address] [address] Nathanael Freedman IG % 0.6 % Critically high 0.0-0.5 [facility] Comment on above: Performed By: #### C BC #### [facility] [address] [place] [address] Dr. Nathanael Freedman LYMPH # 2.3 103/ul Normal 1.2-3.8 [facility] Comment on above: Performed By: #### C BC #### [facility] [address] [place] [address] Dr. Nathanael Freedman Lymphocytes/100 WBC (Bld) 18.1 % Critically low 20.5-60.0 [facility] Comment on above: Performed By: #### C BC #### [facility] [address] [place] [address] Dr. Nathanael Freedman MANUAL DIFF REQ NO Normal [facility] Comment on above: Performed By: #### C BC #### [facility] [address] [place] [address] Dr. Nathanael Freedman MCH (RBC) [Entitic mass] 28.6 pg Normal 26.7-34.0 [facility] Comment on above: Performed By: #### C BC #### [facility] [address] [place] [address] Dr. Nathanael Freedman MCHC (RBC) [Mass/Vol] 34.7 g/dL Normal 29.9-35.2 [facility] Comment on above: Performed By: #### C BC #### [facility] [address] [place] [address] Dr. Nathanael Freedman MCV (RBC) [Entitic vol] 82.3 fL Normal 81.0-99.0 [facility] Comment on above: Performed By: #### C BC #### [facility] [address] [place] [address] Dr. Nathanael Freedman MONO # 0.6 103/ul Normal 0.3-0.8 [facility] Comment on above: Performed By: #### C BC #### [facility] [address] [place] [address] Dr. Nathanael Freedman Monocytes/100 WBC (Bld) 4.8 % Normal 1.7-12.0 [facility] Comment on above: Performed By: #### C BC #### [facility] [address] [place] [address] Dr. Nathanael Freedman NEUT # 9.3 103/ul Critically high 1.4-6.5 [facility] Comment on above: Performed By: #### C BC #### [facility] [address] [place] [address] Dr. Nathanael Freedman Neutrophils/100 WBC (Bld) 75.0 % Normal 43.0-75.0 [facility] Comment on above: Performed By: #### C BC #### [facility] [address] [place] [address] Dr. Nathanael Freedman Platelet mean volume (Bld) [Entitic vol] 9.6 fL Normal 9.5-13.5 [facility] Comment on above: Performed By: #### C BC #### [facility] [address] [place] [address] Dr. Nathanael Freedman PLT 332 103/ul Normal 150-450 [facility] Comment on above: Performed By: #### C BC #### [facility] [address] [place] [address] Dr. Nathanael Freedman RBC 5.04 106/ul Normal 4.20-5.40 [facility] Comment on above: Performed By: #### C BC #### [facility] [address] [place] [address] Dr. Nathanael Freedman WBC 12.4 103/ul Critically high 4.0-11.0 [facility] Comment on above: Performed By: #### C BC #### [facility] [address] [place] [address] Dr. Nathanael Freedman MAGNESIUMon 01-12-2023 Magnesium [Mass/Vol] 1.9 mg/dL Normal 1.8-2.4 [facility] Comment on above: Performed By: #### I NFLUAB #### [facility] [address] [place] [address] Dr. Nathanael Freedman PROF 14(COMP METB)on 023 Albumin [Mass/Vol] 4.1 g/dL Normal 3.4-5.0 [facility] Comment on above: Performed By: #### I NFLUAB #### [facility] [address] [place] [address] Dr. Nathanael Freedman Albumin/Globulin [Mass ratio] 1.1 {ratio} Normal [facility] Comment on above: Performed By: #### I NFLUAB #### [facility] [address] [place] [address] Dr. Nathanael Freedman ALP [Catalytic activity/Vol] 69 U/L Normal 46-116 [facility] Comment on above: Performed By: #### I NFLUAB #### [facility] [address] [place] [address] Dr. Nathanael Freedman ALT [Catalytic activity/Vol] 47 U/L Normal 14-59 [facility] Comment on above: Performed By: #### I NFLUAB #### [facility] [address] [place] [address] Dr. Nathanael Freedman Anion gap [Moles/Vol] 13.7 mmol/L Normal [facility] Comment on above: Performed By: #### I NFLUAB #### [facility] [address] [place] [address] Dr. Nathanael Freedman AST [Catalytic activity/Vol] 33 U/L Normal 15-37 [facility] Comment on above: Performed By: #### I NFLUAB #### [facility] [address] [address] [address] Nathanael Freedman Bilirubin [Mass/Vol] 0.7 mg/dL Normal 0.2-1.0 [facility] Comment on above: Performed By: #### I NFLUAB #### [facility] [address] [place] [address] Dr. Nathanael Freedman Calcium [Mass/Vol] 9.2 mg/dL Normal 8.5-10.1 [facility] Comment on above: Performed By: #### I NFLUAB #### [facility] [address] [place] [address] Dr. Nathanael Freedman Chloride [Moles/Vol] 102 mmol/L Normal 98-107 [facility] Comment on above: Performed By: #### I NFLUAB #### [facility] [address] [place] [address] Dr. Nathanael Freedman CO2 [Moles/Vol] 27.0 mmol/L Normal 21.0-32.0 [facility] Comment on above: Performed By: #### I NFLUAB #### [facility] [address] [place] [address] Dr. Nathanael Freedman Creatinine [Mass/Vol] 0.86 mg/dL Normal 0.55-1.02 [facility] Comment on above: Performed By: #### I NFLUAB #### [facility] [address] [place] [address] Dr. Nathanael Freedman EGFR-AF CYMRAES >60 Normal >=60 [facility] Comment on above: Performed By: #### I NFLUAB #### [facility] [address] [place] [address] Dr. Nathanael Freedman EGFR-NON AF CYMRAES >60 Normal >=60 [facility] Comment on above: Performed By: #### I NFLUAB #### [facility] [address] [place] [address] Dr. Nathanael Freedman Globulin (S) [Mass/Vol] 3.6 g/dL Normal [facility] Comment on above: Performed By: #### I NFLUAB #### [facility] [address] [place] [address] Dr. Nathanael Freedman Glucose [Mass/Vol] 111 mg/dL Critically high 74-106 [facility] Comment on above: Performed By: #### I NFLUAB #### [facility] [address] [address] [address] Nathanael Freedman Potassium [Moles/Vol] 3.7 mmol/L Normal 3.5-5.1 [facility] Comment on above: Performed By: #### I NFLUAB #### [facility] [address] [place] [address] [address] Nathanael Freedman Protein [Mass/Vol] 7.7 g/dL Normal 6.4-8.2 [facility] Comment on above: Performed By: #### I NFLUAB #### [facility] [address] [place] [address] Dr. Nathanael Freedman Sodium [Moles/Vol] 139 mmol/L Normal 136-145 [facility] Comment on above: Performed By: #### I NFLUAB #### [facility] [address] [place] [address] Dr. Nathanael Freedman Urea nitrogen [Mass/Vol] 6.0 mg/dL Critically low 7.0-18.0 [facility] Comment on above: Performed By: #### I NFLUAB #### [facility] [address] [place] [address] Dr. Nathanael Freedman Urea nitrogen/Creatinine [Mass ratio] 7.0 mg/mg Normal [facility] Comment on above: Performed By: #### I NFLUAB #### [facility] [address] [place] [address] Dr. Nathanael Freedman TROPONIN, HIGH SENSITIVITYon 01-12-2023 HSTROP 7.0 pg/mL Normal 4.0-51.3 [facility] Comment on above: Result Comment: CUT- OFF POINTS HAVE BEEN ESTABLISHED BASED ON THE FOURTH UNIVERSAL DEFINITIONS OF MYOCARDIAL INFARCTION. THE UPPER REFERENCE LIMIT (URL) OF TROPONIN, DEFINED THE 99TH PERCENTILE OF cTnI DISTRIBUTION IN A REFERENCE POPULATION, HAS BEEN CONFIRMED THE DECISION THRESHOLD FOR PR DIAGNOSIS. Performed By: #### H STROPN #### [facility] [address] [place], [place] [address] Dr. Nathanael Freedman COVID/FLU/RSV RT-PCRon 12-16 SARS-CoV-2 (COVID-19) RNA KIRTI+probe Ql (Unsp spec) Positive [facility] Other COVID/FLU/RSV RT-PCR Negative [facility] Other CT Chest w/o Contraston 10-07 CT [...] by Brown Alvarenga on 11/01/2022 1556 Normal [facility] [employer] COVID + FLU Quick Testingon 10-04-2022 SARS-CoV-2 (COVID-19) RNA KIRTI+probe Ql (Unsp spec) Negative [employer] Other COVID + FLU Quick Testing Negative [facility] Other CBC AUTO DIFFon 09-18-2022 BASO # 0.1 103/ul Normal 0.0-0.1 [facility] [facility] Comment on above: Performed By: #### C BC #### [facility] [address], [place] [address] Dr. Nathanael Freedman Basophils/100 WBC (Bld) 0.7 % Normal 0.2-2.0 [facility] Comment on above: Performed By: #### C BC #### [facility] [address] [place] [address] Dr. Nathanael Freedman EO # 0.4 103/ul Normal 0.0-0.7 [facility] Comment on above: Performed By: #### C BC #### [facility] [address] [place] [address] Dr. Nathanael Freedman Eosinophils/100 WBC (Bld) 4.8 % Normal 0.9-7.0 [facility] Comment on above: Performed By: #### C BC #### [facility] [address] [place] [address] Dr. Nathanael Freedman Erythrocyte distribution width (RBC) [Ratio] 11.9 % Normal 11.0-15.0 [facility] Comment on above: Performed By: #### C BC #### [facility] [address] [place] [address] Dr. Nathanael Freedman Hematocrit (Bld) [Volume fraction] 38.2 % Normal 36.0-48.0 [facility] Comment on above: Performed By: #### C BC #### [facility] [address] [place] [address] Dr. Nathanael Freedman Hemoglobin (Bld) [Mass/Vol] 13.3 g/dL Normal 12.0-16.0 [facility] Comment on above: Performed By: #### C BC #### [facility] [address] [place] [address] Dr. Nathanael Freedman IG # 0.05 10e3/ul Critically high 0.00-0.03 [facility] Comment on above: Performed By: #### C BC #### [facility] [address] [place] [address] Dr. Nathanael Freedman IG % 0.7 % Critically high 0.0-0.5 [facility] Comment on above: Performed By: #### C BC #### [facility] [address] [place] [address] Dr. Nathanael Freedman LYMPH # 0.5 103/ul Critically low 1.2-3.8 [facility] Comment on above: Performed By: #### C BC #### [facility] [address] [place] [address] Dr. Nathanael Freedman Lymphocytes/100 WBC (Bld) 6.3 % Critically low 20.5-60.0 [facility] Comment on above: Performed By: #### C BC #### [facility] [address] [place] [address] Dr. Nathanael Freedman MANUAL DIFF REQ NO Normal [facility] Comment on above: Performed By: #### C BC #### [facility] [address] [place] [address] Dr. Nathanael Freedman MCH (RBC) [Entitic mass] 28.9 pg Normal 26.7-34.0 [facility] Comment on above: Performed By: #### C BC #### [facility] [address] [place] [address] Dr. Nathanael Freedman MCHC (RBC) [Mass/Vol] 34.8 g/dL Normal 29.9-35.2 [facility] Comment on above: Performed By: #### C BC #### [facility] [address] [place] [address] Dr. Nathanael Freedman MCV (RBC) [Entitic vol] 82.9 fL Normal 81.0-99.0 [facility] Comment on above: Performed By: #### C BC #### [facility] [address] [place] [address] Dr. Nathanael Freedman MONO # 0.5 103/ul Normal 0.3-0.8 [facility] Comment on above: Performed By: #### C BC #### [facility] [address] [place] [address] Dr. Nathanael Freedman Monocytes/100 WBC (Bld) 6.5 % Normal 1.7-12.0 [facility] Comment on above: Performed By: #### C BC #### [facility] [address] [place] [address] Dr. Nathanael Freedman NEUT # 6.1 103/ul Normal 1.4-6.5 [facility] Comment on above: Performed By: #### C BC #### [facility] [address] [place] [address] Dr. Nathanael Freedman Neutrophils/100 WBC (Bld) 81.0 % Critically high 43.0-75.0 [facility] Comment on above: Performed By: #### C BC #### [facility] [address] [place] [address] Dr. Nathanael Freedman Platelet mean volume (Bld) [Entitic vol] 9.9 fL Normal 9.5-13.5 [facility] Comment on above: Performed By: #### C BC #### [facility] [address] [place] [address] Dr. Nathanael Freedman PLT 237 103/ul Normal 150-450 [facility] Comment on above: Performed By: #### C BC #### [facility] [address] [place] [address] Dr. Nathanael Freedman RBC 4.61 106/ul Normal 4.20-5.40 [facility] Comment on above: Performed By: #### C BC #### [facility] [address] [place] [address] Dr. Nathanael Freedman WBC 7.5 103/ul Normal 4.0-11.0 [facility] Comment on above: Performed By: #### C BC #### [facility] [address] [place] [address] Dr. Nathanael Freedman CULTURE BLOODon 09-18-2022 Microscopic examination of blood, culture Culture Observations: NO GROWTH AT 5 DAYS. Normal [facility] Comment on above: Performed By: #### C VDTBH #### [facility] [address] [place] [address] Dr. Nathanael Freedman Microscopic examination of blood, culture Culture Observations: NO GROWTH AT 5 DAYS. Normal [facility] Comment on above: Performed By: #### C VDTBH #### [facility] [address] [place] [address] Dr. Nathanael Freedman Covid-19 PCR ([facility])on 09-05 SARS-CoV-2 (COVID-19) RNA KIRTI+probe Ql (Unsp spec) Not detected Normal NOT DETECTED [facility] Comment on above: Result Comment: This test is not yet approved or cleared by the [place] FDA. When there are no FDA-approved or cleared tests available, and other criteria are met, FDA can make tests available under an emergency access mechanism called an Emergency Use Authorization (EUA). The EUA for this test is supported by the [place] of Health and Human Service's (HHS's) declaration [...] SARS-CoV-2. Performed By: #### C VDTB #### [facility] [address] [place] [address] Dr. Nathanael Freedman ER URINE PROFILEon 2 Bilirubin Ql (U) Negative Normal NEGATIVE [facility] Comment on above: Performed By: #### NIALL GARCIA #### [facility] [address] [place] [address] Dr. Nathanael Freedman Clarity (U) CLEAR Normal CLEAR [facility] Comment on above: Performed By: #### JASWINDER GARCIAICRO #### [facility] [address] [place] [address] Dr. Nathanael Freedman Color (U) LT. YELLOW Normal YELLOW [facility] Comment on above: Performed By: #### FABIOLA GARCIARO #### [facility] [address] [place] [address] Dr. Nathanael Freedman ERUAHD A micrscopic examination will be performed if indicated. Normal [facility] Comment on above: Performed By: #### FABIOLA GARCIARO #### [facility] [address] [place] [address] Dr. Nathanael Freedman Glucose Ql (U) Negative Normal NEGATIVE [facility] Comment on above: Performed By: #### FABIOLA GARCIARO #### [facility] [address] [place] [address] Dr. Nathanael Freedman Hemoglobin Ql (U) TRACE-LYSED Abnormal NEGATIVE [facility] Comment on above: Performed By: #### JASWINDER GARCIAICRO #### [facility] [address] [place] [address] Dr. Nathanael Freedman Ketones Ql (U) Negative Normal NEGATIVE [facility] Comment on above: Performed By: #### FABIOLA GARCIARO #### [facility] [address] [place] [address] Dr. Nathanael Freedman LEUKOCYTES Negative Normal NEGATIVE [facility] Comment on above: Performed By: #### FABIOLA GARCIARO #### [facility] [address] [place] [address] Dr. Nathanael Freedman Nitrite Ql (U) Negative Normal NEGATIVE [facility] Comment on above: Performed By: #### FABIOLA GARCIARO #### [facility] [address] [place] [address] Dr. Nathanael Freedman pH (U) 6.5 [pH] Normal 5-9 [facility] Comment on above: Performed By: #### FABIOLA GARCIARO #### [facility] [address] [place] [address] Dr. Nathanael Freedman SPEC GRAVITY 1.010 Normal 1.005-<=1.0 25 [facility] Comment on above: Performed By: #### FABIOLA GARCIARO #### [facility] [address] [place] [address] Dr. Nathanael Freedman UA PROTEIN Negative Normal NEGATIVE/ TRACE [facility] Comment on above: Performed By: #### JASWINDER GARCIAICRO #### [facility] [address] [place] [address] Dr. Nathanael Freedman UR MICRO IND INDICATED Normal [facility] Comment on above: Performed By: #### E NIALL DURAN #### [facility] [address] [place] [address] Dr. Nathanael Freedman Urobilinogen Qn (U) 0.2 {Melina'U}/dL Normal 0.2 - 1. 0 [facility] Comment on above: Performed By: #### NIALL GARCIA #### [facility] [address] [place] [address] Dr. Nathanael Freedman INFLUENZA A AND B AGon 09-18 INFLUANEGH SEE BELOW Normal [facility] Comment on above: Result Comment: Nega tive for Flu A protein angiten. Infection due to Flu A cannot be ruled out. Flu A angiten in the sample may be below the detection limit of the test. Performed By: #### I NFLUAB #### [facility] [address] [place] [address] Dr. Nathanael Freedman INFLUBNEGH SEE BELOW Normal [facility] Comment on above: Result Comment: Nega tive for Flu B protein antigen. Infection due to Flu B cannot be ruled out. Flu B antigen in the sample may be below the detection limit of the test. Performed By: #### I NFLUAB #### [facility] [address] [place] [address] Dr. Nathanael Freedman INFLUENZA A AG Negative Normal NEGATIVE SEE COMMENT [facility] Comment on above: Performed By: #### I NFLUAB #### [facility] [address] [place] [address] Dr. Nathanael Freedman INFLUENZA B AG Negative Normal NEGATIVE SEE COMMENT [facility] Comment on above: Performed By: #### I NFLUAB #### [facility] [address] [place] [address] Dr. Nathanael Freedman INTERNAL CONTROLS Within Normal Limits Normal Wi thin Normal Limits [facility] Comment on above: Performed By: #### I NFLUAB #### [facility] [address] [place] [address] Dr. Nathanael Freedman LACTATE/LACTIC ACIDon 2021 Lactate [Moles/Vol] 1.0 mmol/L Normal 0.4-1.9 [facility] Comment on above: Performed By: #### I NFLUAB #### [facility] [address] [address] [address] Nathanael Freedman PROF 14(COMP METB)on 022 Albumin [Mass/Vol] 4.0 g/dL Normal 3.4-5.0 [facility] Comment on above: Performed By: #### I NFLUAB #### [facility] [address] [place] [address] Dr. Nathanael Freedman Albumin/Globulin [Mass ratio] 1.1 {ratio} Normal [facility] Comment on above: Performed By: #### I NFLUAB #### [facility] [address] [place] [address] Dr. Nathanael Freedman ALP [Catalytic activity/Vol] 62 U/L Normal 46-116 [facility] Comment on above: Performed By: #### I NFLUAB #### [facility] [address] [place] [address] Dr. Nathanael Freedman ALT [Catalytic activity/Vol] 31 U/L Normal 14-59 [facility] Comment on above: Performed By: #### I NFLUAB #### [facility] [address] [place] [address] Dr. Nathanael Freedman Anion gap [Moles/Vol] 15.0 mmol/L Normal [facility] Comment on above: Performed By: #### I NFLUAB #### [facility] [address] [place] [address] [address] Nathanael Freedman AST [Catalytic activity/Vol] 33 U/L Normal 15-37 [facility] Comment on above: Performed By: #### I NFLUAB #### [facility] [address] [place] [address] [address] Nathanael Freedman Bilirubin [Mass/Vol] 0.5 mg/dL Normal 0.2-1.0 [facility] Comment on above: Performed By: #### I NFLUAB #### [facility] [address] [place] [address] [address] Nathanael Freedman Calcium [Mass/Vol] 9.2 mg/dL Normal 8.5-10.1 [facility] Comment on above: Performed By: #### I NFLUAB #### [facility] [address] [place] [address] Dr. Nathanael Freedman Chloride [Moles/Vol] 99 mmol/L Normal 98-107 [facility] Comment on above: Performed By: #### I NFLUAB #### [facility] [address] [place] [address] Dr. Nathanael Freedman CO2 [Moles/Vol] 27.0 mmol/L Normal 21.0-32.0 [facility] Comment on above: Performed By: #### I NFLUAB #### [facility] [address] [place] [address] Dr. Nathanael Freedman Creatinine [Mass/Vol] 0.86 mg/dL Normal 0.55-1.02 [facility] Comment on above: Performed By: #### I NFLUAB #### [facility] [address] [place] [address] Dr. Nathanael Freedman EGFR-AF CYMRAES >60 Normal >=60 [facility] Comment on above: Performed By: #### I NFLUAB #### [facility] [address] [place] [address] Dr. Nathanael Freedman EGFR-NON AF CYMRAES >60 Normal >=60 [facility] Comment on above: Performed By: #### I NFLUAB #### [facility] [address] [place] [address] Dr. Nathanael Freedman Globulin (S) [Mass/Vol] 3.8 g/dL Normal [facility] Comment on above: Performed By: #### I NFLUAB #### [facility] [address] [place] [address] Dr. Nathanael Freedman Glucose [Mass/Vol] 106 mg/dL Normal 74-106 [facility] Comment on above: Performed By: #### I NFLUAB #### [facility] [address] [place] [address] Dr. Nathanael Freedman Potassium [Moles/Vol] 4.0 mmol/L Normal 3.5-5.1 [facility] Comment on above: Performed By: #### I NFLUAB #### [facility] [address] [place] [address] Dr. Nathanael Freedman Protein [Mass/Vol] 7.8 g/dL Normal 6.4-8.2 [facility] Comment on above: Performed By: #### I NFLUAB #### [facility] [address] [place] [address] Dr. Nathanael Freedman Sodium [Moles/Vol] 137 mmol/L Normal 136-145 [facility] Comment on above: Performed By: #### I NFLUAB #### [facility] [address] [place] [address] Dr. Nathanael Freedman Urea nitrogen [Mass/Vol] 8.0 mg/dL Normal 7.0-18.0 [facility] Comment on above: Performed By: #### I NFLUAB #### [facility] [address] [place] [address] Dr. Nathanael Freedman Urea nitrogen/Creatinine [Mass ratio] 9.3 mg/mg Normal [facility] Comment on above: Performed By: #### I NFLUAB #### [facility] [address] [place] [address] Dr. Nathanael Freedman URINE MICROSCOPIC ONLYon BACTERIA TRACE Abnormal NONE SEEN [facility] Comment on above: Performed By: #### JASWINDER GARCIAICRO #### [facility] [address] [place] [address] Dr. Nathanael Freedman Bacteria identified Cx Nom (U) NOT INDICATED Normal [facility] Comment on above: Performed By: #### E ROGER UMICRO #### [facility] [address] [place] [address] Dr. Nathanael Freedman CAST NONE SEEN Normal NONE SEEN [facility] Comment on above: Performed By: #### E ROGER UMICRO #### [facility] [address] [place] [address] Dr. Nathanael Freedman Crystals LM Nom (Urine sed) NONE SEEN Normal NONE SEEN [facility] Comment on above: Performed By: #### E ROGER UMICRO #### [facility] [address] [place] [address] [address] Nathanael Freedman Epithelial cells LM Ql (Urine sed) MODERATE Abnormal NONE SEEN /RARE [facility] Comment on above: Performed By: #### E ERASMOR, UMICRO #### [facility] [address] [place] [address] [address] Nathanael Freedman MUCOUS TRACE Abnormal NONE SEEN [facility] Comment on above: Performed By: #### E ERASMOR, UMICRO #### [facility] [address] [place] [address] [address] Nathanael Freedman RBC 2-5 Abnormal 0-2 [facility] Comment on above: Performed By: #### E ROGER, UMICRO #### [facility] [address] [place] [address] [address] Nathanael Freedman WBC 0-2 Abnormal NONE SEEN [facility] Comment on above: Performed By: #### Savanah DURAN, UMICRO #### [facility] [address] [place] [address] [address] Nathanael Freedman Creatinine and Glomerular fi ltration rate.predicted panel (S/P/Bld)Ordered By: Jr Mancini on 09-13-2022 Creatinine [Mass/Vol] 0.75 mg/dL 0.44-1.03 [facility] Estimated glomerular filtrat ion rate (GFR) non- AmericanOrdered By: Jr Mancini on 09-13-2022 GFR/1.73 sq M.predicted among non-blacks MDRD (S/P/Bld) [Vol rate/Area] > 60 mL/Min [facility] No Panel InformationOrdered By: Jr Mancini on 09-13-2022 Estimated GFR () > 60 mL/Min [facility] Comment on above: GFR estimated refere nce range: According to KDOQI guidelines, <60 ml/min/1.73m2 is sufficient to diagnose a patient with chronic kidney disease. Pharmacy Creatinine Clearance (Chem 87.86 [facility] Serum or plasma anion gap de terminationOrdered By: Jr Mancini on 09-13-2022 Anion gap [Moles/Vol] 9.4 mmol/L 6.0-15.0 [facility] Serum or plasma calcium jermain urement (mass/volume)Ordered By: Jr Mancini on 09-13-2022 Calcium [Mass/Vol] 8.8 mg/dL 8.2-10.2 [facility] Serum or plasma chloride jurgen surement (moles/volume)Ordered By: Jr Mancini on 09-13-2022 Chloride [Moles/Vol] 106 mmol/L 95-114 [facility] Serum or plasma glucose jermain urement (mass/volume)Ordered By: Jr Mancini on 09-13-2022 Glucose [Mass/Vol] 110 mg/dL 70-100 [facility] Comment on above: ADA recommended refe rence rangeRandom Glucose Reference Range is dependent on time and content of last meal. Glucose of more than 200 mg/dL in a nonstressed, ambulatory subject supports the diagnosis of Diabetes Mellitus. Serum or plasma potassium me asurement (moles/volume)Ordered By: Jr Mancini on 09-13-2022 Potassium [Moles/Vol] 3.6 mmol/L 3.5-5.1 [facility] Serum or plasma sodium measu rement (moles/volume)Ordered By: Jr Mancini on 09-13-2022 Sodium [Moles/Vol] 136 mmol/L 136-146 [facility] Serum or plasma total carbon dioxide measurement (moles/volume)Ordered By: Jr Mancini on 09-13-2022 CO2 [Moles/Vol] 24.2 mmol/L 22.0-30.0 [facility] Serum or plasma urea nitroge n measurement (mass/volume)Ordered By: Jr Mancini on 09-13-2022 Urea nitrogen [Mass/Vol] 8 mg/dL 9-23 [facility] C reactive protein [Mass/vol ume] in Serum or PlasmaOrdered By: Micheal Bowling on 05-15-2022 CRP [Mass/Vol] 1.1 mg/dL 0.0-1.0 [facility] Erythrocyte sedimentation ra te by Photometric methodOrdered By: Micheal Bowling on 05-15-2022 ESR Photometric method (Bld) [Velocity] 12 mm/hr 0-19 [facility] Serum nuclear antibody titer Ordered By: Micheal Bowling on 05-15-2022 Nuclear Ab (S) [Titer] Negative . [facility] Comment on above: Negative <1:80 Borderline 1:80 Positive >1:80 ICAP nomenclature: AC-0 For more information about Hep-2 cell patterns use ANApatterns.org, the official website for the International Consensus on Antinuclear Antibody (DAYDAY) Patterns (ICAP). Performed at: [facility] [address] [id number] [employer] Carpenter: Damir Young PhD, Phone: [phone] Serum or plasma rheumatoid f actor measurement (units/volume)Ordered By: Micheal Bowling on 05-15-2022 Rheumatoid factor Qn [IU]/mL <14.0 [facility] Comment on above: Performed at: [facility] [address] [id number] [employer]: Damir Young PhD, Phone: [phone] Serum or plasma uric acid me asurement (mass/volume)Ordered By: Micheal Bowling on 05-15-2022 Urate [Mass/Vol] 4.4 mg/dL 2.6-7.2 [facility] CBC W MANUAL DIFFon 03-20-20 22 ATYPICAL LYMPH # Normal [facility] Comment on above: Performed By: #### C VDTBH #### [facility] [address] [place] [address] [address] Nathanael Freedman ATYPICAL LYMPH % Normal [facility] Comment on above: Performed By: #### C VDTBH #### [facility] [address] [place] [address] [address] Nathanael Freedman BAND # 0.1 103/ul Normal 0.0-0.3 [facility] Comment on above: Performed By: #### C VDTBH #### [facility] [address] [place] [address] [address] Nathanael Freedman BAND % 2 % Normal 0-5 [facility] Comment on above: Performed By: #### C VDTBH #### [facility] [address] [place] [address] [address] Nathanael Freedman BASOM # 0.00 103/ul Normal 0.00-0.10 [facility] Comment on above: Performed By: #### C VDTBH #### [facility] [address] [place] [address] [address] Nathanael Freedman BASOM % 0.0 % Critically low 0.2-2.0 [facility] Comment on above: Performed By: #### C VDTBH #### [facility] [address] [place] [address] Dr. aNthanael Freedman BLAST # Normal [facility] Comment on above: Performed By: #### C VDTBH #### [facility] [address] [place] [address] Dr. Nathanael Freedman BLAST % Normal [facility] Comment on above: Performed By: #### C VDTBH #### [facility] [address] [place] [address] Dr. Nathanael Freedman CORRECTED WBC Normal 4.0-11.0 [facility] Comment on above: Performed By: #### C VDTBH #### [facility] [address] [place] [address] Dr. Nathanael Freedman EOS # 0.13 103/ul Normal 0.00-0.70 [facility] Comment on above: Performed By: #### C VDTBH #### [facility] [address] [place] [address] Dr. Nathanael Freedman EOS% 2.0 % Normal 0.9-7.0 [facility] Comment on above: Performed By: #### C VDTBH #### [facility] [address] [place] [address] Dr. Nathanael Freedman HCT 37.3 % Normal 36.0-48.0 [facility] Comment on above: Performed By: #### C VDTBH #### [facility] [address] [place] [address] Dr. Nathanael Freedman HGB 12.5 g/dl Normal 12.0-16.0 [facility] Comment on above: Performed By: #### C VDTBH #### [facility] [address] [place] [address] Dr. Nathanael Freedman LYMPHM # 0.50 103/ul Critically low 1.20-3.80 [facility] Comment on above: Performed By: #### C VDTBH #### [facility] [address] [place] [address] Dr. Nathanael Freedman LYMPHM% 8.0 % Critically low 20.5-60.0 [facility] Comment on above: Performed By: #### C VDTBH #### [facility] [address] [place] [address] Dr. Nathanael Freedman MCH 29.0 pg Normal 26.7-34.0 [facility] Comment on above: Performed By: #### C VDTBH #### [facility] [address] [place] [address] Dr. Nathanael Freedman MCHC 33.5 g/dl Normal 29.9-35.2 [facility] Comment on above: Performed By: #### C VDTBH #### [facility] [address] [place] [address] Dr. Nathanael Freedman MCV 86.5 fL Normal 81.0-99.0 [facility] Comment on above: Performed By: #### C VDTBH #### [facility] [address] [place] [address] Dr. Nathanael Freedman METAMYELOCYTE # Normal [facility] Comment on above: Performed By: #### C VDTBH #### [facility] [address] [place] [address] Dr. Nathanael Freedman METAMYELOCYTE % Normal [facility] Comment on above: Performed By: #### C VDTBH #### [facility] [address] [place] [address] Dr. Nathanael Freedman MONOM# 0.19 103/ul Critically low 0.30-0.80 [facility] Comment on above: Performed By: #### C VDTBH #### [facility] [address] [place] [address] Dr. Nathanael Freedman MONOM% 3.0 % Normal 1.7-12.0 [facility] Comment on above: Performed By: #### C VDTBH #### [facility] [address] [place] [address] Dr. Nathanael Freedman MPV 10.1 fL Normal 9.5-13.5 [facility] Comment on above: Performed By: #### C VDTBH #### [facility] [address] [place] [address] Dr. Nathanael Freedman MYELOCYTE # Normal [facility] Comment on above: Performed By: #### C VDTBH #### [facility] [address] [place] [address] Dr. Nathanael Freedman MYELOCYTE % Normal [facility] Comment on above: Performed By: #### C VDTBH #### [facility] [address] [place] [address] Dr. Nathanael Freedman NRBC Normal [facility] Comment on above: Performed By: #### C VDTBH #### [facility] [address] [place] [address] Dr. Nathanael Freedman PLT 195 103/ul Normal 150-450 [facility] Comment on above: Performed By: #### C VDTBH #### [facility] [address] [place] [address] Dr. Nathanael Freedman RBC 4.31 106/ul Normal 4.20-5.40 [facility] Comment on above: Performed By: #### C VDTBH #### [facility] [address] [place] [address] Dr. Nathanael Freedman RDW 12.8 % Normal 11.0-15.0 [facility] Comment on above: Performed By: #### C VDTBH #### [facility] [address] [place] [address] Dr. Nathanael Freedman SEG # 5.36 103/ul Normal 1.40-6.50 [facility] Comment on above: Performed By: #### C VDTBH #### [facility] [address] [address] [address] Nathanael Freedman SEG % 85.0 % Critically high 43.0-75.0 [facility] Comment on above: Performed By: #### C VDTBH #### [facility] [address] [address] [address] Nathanael Freedman WBC 6.3 103/ul Normal 4.0-11.0 [facility] Comment on above: Performed By: #### C VDTBH #### [facility] [address] [address] [address] Nathanael Freedman CRPon 03-20-2022 CRP 2.7 mg/dL Critically high <=1.0 [facility] Comment on above: Performed By: #### C VDTBH #### [facility] [address] [place] [address] Dr. Nathanael Freedman LACTATE/LACTIC ACIDon 2021 Lactate [Moles/Vol] 0.7 mmol/L Normal 0.4-1.9 [facility] Comment on above: Performed By: #### H STROPN, CMP, CRP #### [facility] [address] [address] [address] Nathanael Freedman LIVER PROFILEon 03-20-2022 Albumin [Mass/Vol] 3.8 g/dL Normal 3.4-5.0 [facility] Comment on above: Performed By: #### C VDTBH #### [facility] [address] [place] [address] Dr. Nathanael Freedman Albumin/Globulin [Mass ratio] 1.1 {ratio} Normal [facility] Comment on above: Performed By: #### C VDTBH #### [facility] [address] [place] [address] Dr. Nathanael Freedman ALP [Catalytic activity/Vol] 60 U/L Normal 46-116 [facility] Comment on above: Performed By: #### C VDTBH #### [facility] [address] [address] [address] Nathanael Freedman ALT [Catalytic activity/Vol] 29 U/L Normal 14-59 [facility] Comment on above: Performed By: #### C VDTBH #### [facility] [address] [place] [address] Dr. Nathanael Freedman AST [Catalytic activity/Vol] 19 U/L Normal 15-37 [facility] Comment on above: Performed By: #### C VDTBH #### [facility] [address] [place] [address] Dr. Nathanael Freedman BILI, CONJUGATED 0.1 mg/dL Normal 0.0-0.2 [facility] Comment on above: Performed By: #### C VDTBH #### [facility] [address] [place] [address] Dr. Nathanael Freedman Bilirubin [Mass/Vol] 0.6 mg/dL Normal 0.2-1.0 [facility] Comment on above: Performed By: #### C VDTBH #### [facility] [address] [place] [address] Dr. Nathanael Freedman Globulin (S) [Mass/Vol] 3.5 g/dL Normal [facility] Comment on above: Performed By: #### C VDTBH #### [facility] [address] [place] [address] Dr. Nathanael Freedman Protein [Mass/Vol] 7.3 g/dL Normal 6.4-8.2 [facility] Comment on above: Performed By: #### C VDTBH #### [facility] [address] [place] [address] Dr. Nathanael Freedman MYOGLOBINon 03-20-2022 STEFANIA 36 ng/mL Normal 9-82 [facility] Comment on above: Performed By: #### C VDTBH #### [facility] [address] [place] [address] Dr. Nathanael Freedman PROF CHEM 8 (BAS METB)on Anion gap [Moles/Vol] 13.5 mmol/L Normal [facility] Comment on above: Performed By: #### C VDTBH #### [facility] [address] [place] [address] Dr. Nathanael Freedman Calcium [Mass/Vol] 8.9 mg/dL Normal 8.5-10.1 [facility] Comment on above: Performed By: #### C VDTBH #### [facility] [address] [place] [address] Dr. Nathanael Freedman Chloride [Moles/Vol] 100 mmol/L Normal 98-107 [facility] Comment on above: Performed By: #### C VDTBH #### [facility] [address] [place] [address] Dr. Nathanael Freedman CO2 [Moles/Vol] 26.0 mmol/L Normal 21.0-32.0 [facility] Comment on above: Performed By: #### C VDTBH #### [facility] [address] [place] [address] Dr. Nathanael Freedman Creatinine [Mass/Vol] 0.94 mg/dL Normal 0.55-1.02 [facility] Comment on above: Performed By: #### C VDTBH #### [facility] [address] [place] [address] Dr. Nathanael Freedman EGFR-AF CYMRAES >60 Normal >=60 [facility] Comment on above: Performed By: #### C VDTBH #### [facility] [address] [place] [address] Dr. Nathanael Freedman EGFR-NON AF CYMRAES >60 Normal >=60 [facility] Comment on above: Performed By: #### C VDTBH #### [facility] [address] [place] [address] Dr. Nathanael Freedman Glucose [Mass/Vol] 116 mg/dL Critically high 74-106 [facility] Comment on above: Performed By: #### C VDTBH #### [facility] [address] [place] [address] Dr. Nathanael Freedman Potassium [Moles/Vol] 3.5 mmol/L Normal 3.5-5.1 [facility] Comment on above: Performed By: #### C VDTBH #### [facility] [address] [place] [address] Dr. Nathanael Freedman Sodium [Moles/Vol] 136 mmol/L Normal 136-145 [facility] Comment on above: Performed By: #### C VDTBH #### [facility] [address] [place] [address] Dr. Nathanael Freedman Urea nitrogen [Mass/Vol] 6.0 mg/dL Critically low 7.0-18.0 [facility] Comment on above: Performed By: #### C VDTBH #### [facility] [address] [place] [address] Dr. Nathanael Freedman Urea nitrogen/Creatinine [Mass ratio] 6.4 mg/mg Normal [facility] Comment on above: Performed By: #### C VDTBH #### [facility] [address] [place] [address] Dr. Nathanael Freedman SED RATE [facility] 2021 SED RATE 26 mm/hr Critically high <=20 [facility] Comment on above: Performed By: #### I NFLUAB #### [facility] [address] [place] [address] Dr. Nathanael Freedman Covid-19 PCR ([facility])on 03-06 SARS-CoV-2 (COVID-19) RNA KIRTI+probe Ql (Unsp spec) Detected Critically abnormal NOT DETECTED [facility] Comment on above: Result Comment: This test is not yet approved or cleared by the [place] FDA. When there are no FDA-approved or cleared tests available, and other criteria are met, FDA can make tests available under an emergency access mechanism called an Emergency Use Authorization (EUA). The EUA for this test is supported by the [place] of Health and Human Service's declaration that [...] used). Performed By: #### C VDTBH #### [facility] [address] [place] [address] Dr. Nathanael Freedman INFLUENZA A AND B AGon 03-19 [facility] SEE BELOW Normal [facility] Comment on above: Result Comment: Nega tive for Flu A protein angiten. Infection due to Flu A cannot be ruled out. Flu A angiten in the sample may be below the detection limit of the test. Performed By: #### I NFLUAB #### [facility] [address] [place] [address] Dr. Nathanael Freedman INFLUBNEG SEE BELOW Normal [facility] Comment on above: Result Comment: Nega tive for Flu B protein antigen. Infection due to Flu B cannot be ruled out. Flu B antigen in the sample may be below the detection limit of the test. Performed By: #### I NFLUAB #### [facility] [address] [place] [address] Dr. Nathanael Freedman INFLUENZA A AG Negative Normal NEGATIVE SEE COMMENT [facility] Comment on above: Performed By: #### I NFLUAB #### [facility] [address] [place] [address] Dr. Nathanael Freedman INFLUENZA B AG Negative Normal NEGATIVE SEE COMMENT [facility] Comment on above: Performed By: #### I NFLUAB #### [facility] [address] [place] [address] Dr. Nathanael Freedman INTERNAL CONTROLS Within Normal Limits Normal Wi thin Normal Limits [facility] Comment on above: Performed By: #### I NFLUAB #### [facility] [address] [place] [address] Dr. Nathanael Freedman CBC AUTO DIFFon 02-27-2022 BASO # 0.1 103/ul Normal 0.0-0.1 [facility] Comment on above: Performed By: #### C VDTBH #### [facility] [address] [place] [address] Dr. Nathanael Freedman Basophils/100 WBC (Bld) 0.5 % Normal 0.2-2.0 [facility] Comment on above: Performed By: #### C VDTBH #### [facility] [address] [place] [address] Dr. Nathanael Freedman EO # 0.2 103/ul Normal 0.0-0.7 [facility] Comment on above: Performed By: #### C VDTBH #### [facility] [address] [place] [address] Dr. Nathanael Freedman Eosinophils/100 WBC (Bld) 2.1 % Normal 0.9-7.0 [facility] Comment on above: Performed By: #### C VDTBH #### [facility] [address] [place] [address] Dr. Nathanael Freedman Erythrocyte distribution width (RBC) [Ratio] 12.4 % Normal 11.0-15.0 [facility] Comment on above: Performed By: #### C VDTBH #### [facility] [address] [place] [address] Dr. Nathanael Freedman Hematocrit (Bld) [Volume fraction] 39.4 % Normal 36.0-48.0 [facility] Comment on above: Performed By: #### C VDTBH #### [facility] [address] [place] [address] Dr. Nathanael Freedman Hemoglobin (Bld) [Mass/Vol] 13.0 g/dL Normal 12.0-16.0 [facility] Comment on above: Performed By: #### C VDTBH #### [facility] [address] [place] [address] Dr. Nathanael Freedman IG # 0.04 10e3/ul Critically high 0.00-0.03 [facility] Comment on above: Performed By: #### C VDTBH #### [facility] [address] [place] [address] Dr. Nathanael Freedman IG % 0.4 % Normal 0.0-0.5 [facility] Comment on above: Performed By: #### C VDTBH #### [facility] [address] [place] [address] Dr. Nathanael Freedman LYMPH # 3.2 103/ul Normal 1.2-3.8 [facility] Comment on above: Performed By: #### C VDTBH #### [facility] [address] [place] [address] Dr. Nathanael Freedman Lymphocytes/100 WBC (Bld) 29.6 % Normal 20.5-60.0 [facility] Comment on above: Performed By: #### C VDTBH #### [facility] [address] [place] [address] Dr. Nathanael Freedman MANUAL DIFF REQ NO Normal [facility] Comment on above: Performed By: #### C VDTBH #### [facility] [address] [place] [address] Dr. Nathanael Freedman MCH (RBC) [Entitic mass] 28.5 pg Normal 26.7-34.0 [facility] Comment on above: Performed By: #### C VDTBH #### [facility] [address] [place] [address] Dr. Nathanael Freedman MCHC (RBC) [Mass/Vol] 33.0 g/dL Normal 29.9-35.2 [facility] Comment on above: Performed By: #### C VDTBH #### [facility] [address] [place] [address] Dr. Nathanael Freedman MCV (RBC) [Entitic vol] 86.4 fL Normal 81.0-99.0 [facility] Comment on above: Performed By: #### C VDTBH #### [facility] [address] [place] [address] Dr. Nathanael Freedman MONO # 0.6 103/ul Normal 0.3-0.8 [facility] Comment on above: Performed By: #### C VDTBH #### [facility] [address] [place] [address] Dr. Nathanael Freedman Monocytes/100 WBC (Bld) 5.9 % Normal 1.7-12.0 [facility] Comment on above: Performed By: #### C VDTBH #### [facility] [address] [place] [address] Dr. Nathanael Freedman NEUT # 6.7 103/ul Critically high 1.4-6.5 [facility] Comment on above: Performed By: #### C VDTBH #### [facility] [address] [place] [address] Dr. Nathanael Freedman Neutrophils/100 WBC (Bld) 61.5 % Normal 43.0-75.0 [facility] Comment on above: Performed By: #### C VDTBH #### [facility] [address] [address] [address] Nathanael Freedman Platelet mean volume (Bld) [Entitic vol] 10.0 fL Normal 9.5-13.5 [facility] Comment on above: Performed By: #### C VDTBH #### [facility] [address] [address] [address] Nathanael Freedman PLT 282 103/ul Normal 150-450 [facility] Comment on above: Performed By: #### C VDTBH #### [facility] [address] [place] [address] Dr. Nathanael Freedman RBC 4.56 106/ul Normal 4.20-5.40 [facility] Comment on above: Performed By: #### C VDTBH #### [facility] [address] [place] [address] Dr. Nathanael Freedman WBC 10.9 103/ul Normal 4.0-11.0 [facility] Comment on above: Performed By: #### C VDTBH #### [facility] [address] [place] [address] Dr. Nathanael Freedman CRPon 02-27-2022 CRP 1.7 mg/dL Critically high <=1.0 [facility] Comment on above: Performed By: #### H STROPN, CMP, CRP #### [facility] [address] [place] [address] HEAD WO CONon [...] by: January SILVESTRE Date: 2022-02-26 23:36 Normal [facility] LACTATE/LACTIC ACIDon 2021 Lactate [Moles/Vol] 0.8 mmol/L Normal 0.4-1.9 [facility] Comment on above: Performed By: #### I NFLUAB #### [facility] [address] [address] [address] Nathanael Freedman PROF 14(COMP METB)on 022 Albumin [Mass/Vol] 4.0 g/dL Normal 3.4-5.0 [facility] Comment on above: Performed By: #### H STROPN, CMP, CRP #### [facility] [address] [address] [address] Nathanael Freedman Albumin/Globulin [Mass ratio] 1.0 {ratio} Normal [facility] Comment on above: Performed By: #### H STROPN, CMP, CRP #### [facility] [address] [address] [address] Nathanael Freedman ALP [Catalytic activity/Vol] 68 U/L Normal 46-116 [facility] Comment on above: Performed By: #### H STROPN, CMP, CRP #### [facility] [address] [address] [address] Nathanael Freedman ALT [Catalytic activity/Vol] 28 U/L Normal 14-59 [facility] Comment on above: Performed By: #### H STROPN, CMP, CRP #### [facility] [address] [address] [address] Nathanael Freedman Anion gap [Moles/Vol] 10.8 mmol/L Normal [facility] Comment on above: Performed By: #### H STROPN, CMP, CRP #### [facility] [address] [address] [address] Nathanael Freedman AST [Catalytic activity/Vol] 13 U/L Critically low 15-37 [facility] Comment on above: Performed By: #### H STROPN, CMP, CRP #### [facility] [address] [address] [address] Nathanael Freedman Bilirubin [Mass/Vol] 0.4 mg/dL Normal 0.2-1.0 [facility] Comment on above: Performed By: #### H STROPN, CMP, CRP #### [facility] [address] [place] [address] Dr. Nathanael Freedman Calcium [Mass/Vol] 9.4 mg/dL Normal 8.5-10.1 [facility] Comment on above: Performed By: #### H STROPN, CMP, CRP #### [facility] [address] [place] [address] Dr. Nathanael Freedman Chloride [Moles/Vol] 103 mmol/L Normal 98-107 [facility] Comment on above: Performed By: #### H STROPN, CMP, CRP #### [facility] [address] [place] [address] Dr. Nathanael Freedman CO2 [Moles/Vol] 27.7 mmol/L Normal 21.0-32.0 [facility] Comment on above: Performed By: #### H STROPN, CMP, CRP #### [facility] [address] [place] [address] Dr. Nathanael Freedman Creatinine [Mass/Vol] 0.96 mg/dL Normal 0.55-1.02 [facility] Comment on above: Performed By: #### H STROPN, CMP, CRP #### [facility] [address] [place] [address] Dr. Nathanael Freedman EGFR-AF CYMRAES >60 Normal >=60 [facility] Comment on above: Performed By: #### H STROPN, CMP, CRP #### [facility] [address] [place] [address] Dr. Nathanael Freedman EGFR-NON AF CYMRAES >60 Normal >=60 [facility] Comment on above: Performed By: #### H STROPN, CMP, CRP #### [facility] [address] [place] [address] Dr. Nathanael Freedman Globulin (S) [Mass/Vol] 3.9 g/dL Normal [facility] Comment on above: Performed By: #### H STROPN, CMP, CRP #### [facility] [address] [address] [address] Nathanael Freedman Glucose [Mass/Vol] 124 mg/dL Critically high 74-106 [facility] Comment on above: Performed By: #### H STROPN, CMP, CRP #### [facility] [address] [address] [address] Nathanael Freedman Potassium [Moles/Vol] 3.5 mmol/L Normal 3.5-5.1 [facility] Comment on above: Performed By: #### H STROPN, CMP, CRP #### [facility] [address] [address] [address] Nathanael Freedman Protein [Mass/Vol] 7.9 g/dL Normal 6.4-8.2 [facility] Comment on above: Performed By: #### H STROPN, CMP, CRP #### [facility] [address] [address] [address] Nathanael Freedman Sodium [Moles/Vol] 138 mmol/L Normal 136-145 [facility] Comment on above: Performed By: #### H STROPN, CMP, CRP #### [facility] [address] [address] [address] Nathanael Freedman Urea nitrogen [Mass/Vol] 9.0 mg/dL Normal 7.0-18.0 [facility] Comment on above: Performed By: #### H STROPN, CMP, CRP #### [facility] [address] [address] [address] Nathanael Freedman Urea nitrogen/Creatinine [Mass ratio] 9.4 mg/mg Normal [facility] Comment on above: Performed By: #### H STROPN, CMP, CRP #### [facility] [address] [address] [address] Nathanael Freedman SED RATE [facility] 2021 SED RATE 27 mm/hr Critically high <=20 [facility] Comment on above: Performed By: #### I NFLUAB #### [facility] [address] [place], [place] [address] Dr. Nathanael Freedman TROPONIN, HIGH SENSITIVITYon 02-27-2022 HSTROP 2.9 pg/mL Critically low 4.0-51.3 [facility] Comment on above: Result Comment: CUT- OFF POINTS HAVE BEEN ESTABLISHED BASED ON THE FOURTH UNIVERSAL DEFINITIONS OF MYOCARDIAL INFARCTION. THE UPPER REFERENCE LIMIT (URL) OF TROPONIN, DEFINED THE 99TH PERCENTILE OF cTnI DISTRIBUTION IN A REFERENCE POPULATION, HAS BEEN CONFIRMED THE DECISION THRESHOLD FOR PR DIAGNOSIS. Performed By: #### H STROPN, CMP, CRP #### [facility] [address] [address] [address] Nathanael Freedman XR Chest 2 Views*on [...] by Elias Melvin on 02/12/2022 1355 Normal [facility] Urine 10 SGon 11-07-2021 Albumin DL <= 20 mg/L (U) [Mass/Vol] Negative [employer] Other pH (U) 6.0 [pH] [employer] Other Urine 10 SG Negative [employer] Other Urine 10 SG 1.025 [employer] Other Urine 10 SG 0.2 [employer] Other CELIAC DISEASE ABSon 017 ENDO AB IGA Negative Normal Negative [facility] Comment on above: Performed By: #### L CELIACABS ####[id number] [place] [address] GLIADIN AB IGA 6 units Normal 0-19 [facility] Comment on above: Result Comment: Nega tive 0 - 19 Weak Positive 20 - 30 Moderate to Strong Positive >30 Performed By: #### L CELIACABS ####[facility] [id number] [place] [address] GLIADIN AB IGG 3 units Normal 0-19 [facility] Comment on above: Result Comment: Nega tive 0 - 19 Weak Positive 20 - 30 Moderate to Strong Positive >30 Performed By: #### L CELIACABS ####[facility] [id number] [place] [address] IgA 169 mg/dL Normal 87-352 [facility] Comment on above: Result Comment: Perf ormed At: [facility] [id number] [facility], [place] [id number] Damir [id number] Performed By: #### L CELIACABS ####[facility] [id number] [place] [address] tTG IGA <2 Normal 0-3 [facility] Comment on above: Result Comment: Nega tive 0 - 3 Weak Positive 4 - 10 Positive >10 Tissue Transglutaminase (tTG) has been identified as the endomysial antigen. Studies have demonstr- ated that endomysial IgA antibodies have over 99% specificity for gluten sensitive enteropathy. Performed By: #### L CELIACABS ####[facility] [id number] [place] [address] tTG IGG <2 Normal 0-5 [facility] Comment on above: Result Comment: Nega tive 0 - 5 Weak Positive 6 - 9 Positive >9 Performed By: #### L CELIACABS ####[facility] [id number] [place] [address] C-REACTIVE PROTEINon 017 C reactive protein (CRP) 15.90 mg/L High [facility] Comment on above: Order Comment: Is pa tient fasting? NO Result Comment: Card iovascular CRP Risk Stratification Low < 1.00 mg/L Average 1.00 - 3.00 mg/L High > 3.00 mg/LAbsence of acute inflammation < 3.0 mg/LAcute inflammation >10.0 mg/L Performed By: #### L CMP, LGFRP, LCARDIOCRP, [id number] ####[facility] [address]wecnc[address] [place] [address] CBC AUTOon 09-10-2017 Erythrocyte distribution width Auto Ratio (RBC) 12.7 % Normal 11.5-14.5 [facility] Comment on above: Performed By: #### L CBC, LWSR ####[facility] [address] [place] [address] Erythrocytes (RBC) 4.61 10*6/uL Normal 3.5-5.5 [facility] Comment on above: Performed By: #### L CBC, LWSR ####[facility] [address] [place] [address] Hematocrit (HCT) 39.2 % Normal 36.0-48.0 [facility] Comment on above: Performed By: #### L CBC, LWSR ####[facility] [address] [place] [address] Hemoglobin mass conc (Bld) 13.5 g/dL Normal 12.0-15.0 [facility] Comment on above: Performed By: #### L CBC, LWSR ####[facility] [address] [place] [address] MCH 29.3 pg Normal 25.4-34.6 [facility] Comment on above: Performed By: #### L CBC, LWSR ####[facility] [address] [place] [address] 79006 MCHC mass conc (RBC) 34.4 g/dL Normal 30.0-36.0 [facility] Comment on above: Performed By: #### L CBC, LWSR ####[facility] [address] [place] [address] 92085 MCV 85.0 fL Normal 79.0-98.0 [facility] Comment on above: Performed By: #### L CBC, LWSR ####[facility] [address] [place] [address] 20100 Platelet mean volume (PMV) 10.1 fL Normal 8.4-11.9 [facility] Comment on above: Performed By: #### L CBC, LWSR ####[facility] [address] [place] [address] 69402 Platelets 256 10*3/uL Normal 140-440 [facility] Comment on above: Performed By: #### L CBC, LWSR ####[facility] Owglkpamsu37857 [place] [address] WBC (Leukocytes) 10.7 10*3/uL Normal 3.9-11.0 [facility] Comment on above: Performed By: #### L CBC, LWSR ####[facility] Hadgxvtirq13390 [place] [address] COMP METABOLIC PANELon 09-10 Alanine aminotransferase (ALT) 14 U/L Normal 7-45 [facility] Comment on above: Order Comment: Is pa tient fasting? NO Performed By: #### L CMP, LGFRP, LCARDIOCRP, [id number] ####[facility] M[address]gtgwag90920 [place] [address] Albumin 4.3 g/dL Normal 3.4-5.0 [facility] Comment on above: Order Comment: Is pa tient fasting? NO Performed By: #### L CMP, LGFRP, LCARDIOCRP, [id number] ####[facility] Slpirsoddl25003 [place] [address] ALK PHOS TOTAL 49 U/L Normal 45-117 [facility] Comment on above: Order Comment: Is pa tient fasting? NO Performed By: #### L CMP, LGFRP, LCARDIOCRP, [id number] ####[facility] B[address]okeqypfl27509 [place] [address] Aspartate aminotransferase (AST) 14 U/L Normal 13-39 [facility] Comment on above: Order Comment: Is pa tient fasting? NO Performed By: #### L CMP, LGFRP, LCARDIOCRP, [id number] ####[facility] Cigkpaswmu36644 [place] [address] BILI TOTAL 0.4 mg/dL Normal 0-1.2 [facility] Comment on above: Order Comment: Is pa tient fasting? NO Performed By: #### L CMP, LGFRP, LCARDIOCRP, [id number] ####[facility] Qmgkintelk80884 [place] [address] Calcium 9.6 mg/dL Normal 8.6-10.3 [facility] Comment on above: Order Comment: Is pa tient fasting? NO Performed By: #### L CMP, LGFRP, LCARDIOCRP, [id number] ####[facility] Vtahvamnxs91998 [place] [address] Chloride 103 mmol/L Normal 98-107 [facility] Comment on above: Order Comment: Is pa tient fasting? NO Performed By: #### L CMP, LGFRP, LCARDIOCRP, [id number] ####[facility] Qnhdpqyann92277 [place] [address] CO2 29 mmol/L Normal 21-32 [facility] Comment on above: Order Comment: Is pa tient fasting? NO Performed By: #### L CMP, LGFRP, LCARDIOCRP, [id number] ####[facility] Lcsofuowug12150 [place] [address] Creatinine 0.70 mg/dL Normal 0.5-1.05 [facility] Comment on above: Order Comment: Is pa tient fasting? NO Performed By: #### L CMP, LGFRP, LCARDIOCRP, [id number] ####[facility] E[address]wxlczug[address]6903 [place] [address] Glucose mass conc 108 mg/dL High 74-99 [facility] Comment on above: Order Comment: Is pa tient fasting? NO Performed By: #### L CMP, LGFRP, LCARDIOCRP, [id number] ####[facility] Louthltoly83124 [place] [address] Potassium molar conc 3.8 mmol/L Normal 3.5-5.3 [facility] Comment on above: Order Comment: Is pa tient fasting? NO Performed By: #### L CMP, LGFRP, LCARDIOCRP, [id number] ####[facility] [address]bwvregjpt11270 [place] [address] Protein 7.1 g/dL Normal 6.4-8.2 [facility] Comment on above: Order Comment: Is pa tient fasting? NO Performed By: #### L CMP, LGFRP, LCARDIOCRP, [id number] ####[facility] Waiftmamys24388 [place] [address] Sodium 139 mmol/L Normal 136-145 [facility] Comment on above: Order Comment: Is pa tient fasting? NO Performed By: #### L CMP, LGFRP, LCARDIOCRP, [id number] ####[facility] Ckpfanamgr80624 [place] [address] Urea nitrogen 8 mg/dL Normal 6-23 [facility] Comment on above: Order Comment: Is pa tient fasting? NO Performed By: #### L CMP, LGFRP, LCARDIOCRP, [id number] ####[facility] Qsansnlzmx20603 [place] [address] GLOMERULAR FILTRATION RATE E STon 09-10-2017 eGFR (non-black) mL/min/{1.73_m2} Normal > 60 [facility] Comment on above: Order Comment: Is pa tient fasting? NO Performed By: #### L CMP, LGFRP, LCARDIOCRP, [id number] ####[facility] [address] [place] [address] IF AMER > 90 Normal > 60 [facility] Comment on above: Order Comment: Is pa tient fasting? NO Result Comment: Effe ctive 03/01/15:CKD-EPI equation / based on IDMS traceable creatinine.Continue to use the CREAT CLR-DOSE (Cockgroft-Gault)value for determining medication dose. Performed By: #### L CMP, LGFRP, LCARDIOCRP, [id number] ####[facility] Mtrsverjny13126 [place] [address] SED RATE MANUALon 09-10-2017 WSR/MOD 26 mm/hr High 0-20 [facility] Comment on above: Performed By: #### L CBC, LWSR ####[facility] Kpkmfvkfki95756 [place] [address] TSH (3RDGEN)on 09-10-2017 Thyroid stimulating hormone (TSH) 1.28 m[IU]/L Normal 0.44-3.98 [facility] Comment on above: Order Comment: Is pa tient fasting? NO Performed By: #### L CMP, LGFRP, LCARDIOCRP, [id number] ####[facility] [address]bih[address] [place] [address] Vital Signs Date Time Vital Sign Value Performing Clinician Allison levin 10-21-2024 13:47-0500 Body height 149.86 cm [facility] 10-21-2024 13:47-0500 Body mass index (BMI) [Ratio] 32.9 kg/m2 [facility] 10-21-2024 13:47-0500 Body weight 73.93 kg [facility] 10-21-2024 13:47-0500 Diastolic blood pressure 82 mm[Hg] [facility] 10-21-2024 13:47-0500 Heart rate 81 /min [facility] 10-21-2024 13:47-0500 Respiratory rate 18 /min [facility] 10-21-2024 13:47-0500 SaO2% (BldA) [Mass fraction] 97 % [facility] 10-21-2024 13:47-0500 Systolic blood pressure 116 mm[Hg] [facility] 09-08-2024 16:12-0500 Body height 148.6 cm [employer] Work Phone: [facility] 09-08-2024 16:12-0500 Body mass index (BMI) [Ratio] 33.28 kg/m2 [employer] Work Phone: [facility] 09-08-2024 16:12-0500 Body weight 73.48 kg [employer] Work Phone: [facility] 09-08-2024 16:12-0500 Diastolic blood pressure 74 mm[Hg] [employer] Work Phone: [facility] 09-08-2024 16:12-0500 Systolic blood pressure 124 mm[Hg] [employer] Work Phone: [facility] 08-26-2024 14:25-0500 Body height 149.86 cm [facility] 08-26-2024 14:25-0500 Body mass index (BMI) [Ratio] 33.9 kg/m2 [facility] 08-26-2024 14:25-0500 Body weight 76.2 kg [facility] 08-26-2024 14:25-0500 Diastolic blood pressure 90 mm[Hg] [facility] 08-26-2024 14:25-0500 Heart rate 85 /min [facility] 08-26-2024 14:25-0500 Respiratory rate 16 /min [facility] 08-26-2024 14:25-0500 SaO2% (BldA) [Mass fraction] 96 % [facility] 08-26-2024 14:25-0500 Systolic blood pressure 134 mm[Hg] [facility] 07-26-2024 17:45-0400 Body mass index (BMI) [Ratio] 33.2 kg/m2 [employer] Work Phone: [facility] 07-26-2024 17:45-0400 Body weight 73.3 kg [employer]man PA Work Phone: [facility] 04-27-2024 15:32-0400 Body height 149.86 cm DO Micheal Kuns Work Phone: [facility] 04-27-2024 15:32-0400 Body mass index (BMI) [Ratio] 32.3 kg/m2 DO Micheal Kuns Work Phone: [facility] 04-27-2024 15:32-0400 Body weight 72.57 kg DO Micheal Kuns Work Phone: [facility] 04-27-2024 15:32-0400 Diastolic blood pressure 82 mm[Hg] DO Micheal Kuns Work Phone: [facility] 04-27-2024 15:32-0400 Heart rate 82 /min DO Micheal Kuns Work Phone: [facility] 04-27-2024 15:32-0400 Respiratory rate 18 /min DO Micheal Kuns Work Phone: [facility] 04-27-2024 15:32-0400 SaO2% (BldA) [Mass fraction] 98 % DO Micheal Bowling Work Phone: [facility] 04-27-2024 15:32-0400 Systolic blood pressure 132 mm[Hg] DO Micheal Bowlign Work Phone: [facility] 03-02-2024 15:10-0400 Body height 149.86 cm [facility] 03-02-2024 15:10-0400 Body mass index (BMI) [Ratio] 31.8 kg/m2 [facility] 03-02-2024 15:10-0400 Body weight 71.66 kg [facility] 03-02-2024 15:10-0400 Diastolic blood pressure 82 mm[Hg] [facility] 03-02-2024 15:10-0400 Heart rate 94 /min [facility] 03-02-2024 15:10-0400 Respiratory rate 16 /min [facility] 03-02-2024 15:10-0400 SaO2% (BldA) [Mass fraction] 98 % [facility] 03-02-2024 15:10-0400 Systolic blood pressure 122 mm[Hg] [facility] 01-28-2024 09:51-0400 Body height 149.86 cm [facility] 01-28-2024 09:51-0400 Body mass index (BMI) [Ratio] 32.5 kg/m2 [facility] 01-28-2024 09:51-0400 Body weight 73.02 kg [facility] 01-28-2024 09:51-0400 Diastolic blood pressure 80 mm[Hg] [facility] 01-28-2024 09:51-0400 Heart rate 84 /min [facility] 01-28-2024 09:51-0400 Respiratory rate 16 /min [facility] 01-28-2024 09:51-0400 SaO2% (BldA) [Mass fraction] 98 % [facility] 01-28-2024 09:51-0400 Systolic blood pressure 116 mm[Hg] [facility] 12-26-2023 14:45-0400 Diastolic blood pressure 84 mm[Hg] [facility] 12-26-2023 14:45-0400 Heart rate 101 /min [facility] 12-26-2023 14:45-0400 SaO2% (BldA) [Mass fraction] 97 % [facility] 12-26-2023 14:45-0400 Systolic blood pressure 132 mm[Hg] [facility] 11-28-2023 11:26-0500 Body height 149.86 cm DO Micheal Guys Work Phone: [facility] 11-28-2023 11:26-0500 Body mass index (BMI) [Ratio] 30.9 kg/m2 DO Micheal Guys Work Phone: [facility] 11-28-2023 11:26-0500 Body weight 69.39 kg DO Micheal Guys Work Phone: [facility] 11-28-2023 11:26-0500 Diastolic blood pressure 98 mm[Hg] DO Micheal Kuns Work Phone: [facility] 11-28-2023 11:26-0500 Heart rate 87 /min DO Micheal Kuns Work Phone: [facility] 11-28-2023 11:26-0500 Respiratory rate 16 /min DO Micheal Kuns Work Phone: [facility] 11-28-2023 11:26-0500 SaO2% (BldA) [Mass fraction] 97 % DO Micheal Kuns Work Phone: [facility] 11-28-2023 11:26-0500 Systolic blood pressure 142 mm[Hg] DO Micheal Kuns Work Phone: [facility] 10-30-2023 16:12-0500 Blood Pressure Location [facility] 10-30-2023 16:12-0500 Diastolic blood pressure 79 mm[Hg] [facility] 10-30-2023 16:12-0500 Heart rate 80 /min [facility] 10-30-2023 16:12-0500 SaO2% (BldA) [Mass fraction] 97 % [facility] 10-30-2023 16:12-0500 Systolic blood pressure 116 mm[Hg] [facility] 10-09-2023 15:45-0500 Body height 149.86 cm Micheal Bowling Other [facility] 10-09-2023 15:45-0500 Body mass index (BMI) [Ratio] 31.71 kg/m2 Micheal Bowling Other [facility] Other 10-09-2023 15:45-0500 Body weight 71.22 kg Micheal Bowling Other [facility] Other 10-09-2023 15:45-0500 Body weight 71.21 kg DO Micheal Bowling Work Phone: [facility] 10-09-2023 15:45-0500 Diastolic blood pressure 80 mm[Hg] Micheal Bowling Other [facility] 10-09-2023 15:45-0500 Respiratory rate 16 /min Micheal Bowling Other [employer] Other 10-09-2023 15:45-0500 SaO2% (BldA) [Mass fraction] 99 % Micheal Bowling Other [employer] Other 10-09-2023 15:45-0500 Systolic blood pressure 124 mm[Hg] Micheal Bowling Other [facility] 09-05-2023 09:45-0500 Body height 149.86 cm Micheal Bowling Other [facility] 09-05-2023 09:45-0500 Body mass index (BMI) [Ratio] 30.54 kg/m2 Micheal Bowling Other [employer] [facility] [employer] Other 09-05-2023 09:45-0500 Body weight 68.58 kg Micheal Bowling Other [facility] 09-05-2023 09:45-0500 Diastolic blood pressure 88 mm[Hg] Micheal Bowling Other [facility] 09-05-2023 09:45-0500 Respiratory rate 18 /min Micheal Bowling Other [employer] Other 09-05-2023 09:45-0500 SaO2% (BldA) [Mass fraction] 97 % Micheal Bowling Other [employer] Other 09-05-2023 09:45-0500 Systolic blood pressure 130 mm[Hg] Micheal Bowling Other [facility] 07-24-2023 14:45-0400 Body height 149.86 cm Micheal Bowling Other [employer] Other 07-24-2023 14:45-0400 Body mass index (BMI) [Ratio] 29.69 kg/m2 Micheal Bowling Other [employer] Other 07-24-2023 14:45-0400 Body weight 66.68 kg Micheal Bowling Other [employer] Other 07-24-2023 14:45-0400 Diastolic blood pressure 80 mm[Hg] Michealflavio [employer] Other [employer] Other 07-24-2023 14:45-0400 Respiratory rate 18 /min Michealflavio [employer] Other [employer] Other 07-24-2023 14:45-0400 SaO2% (BldA) [Mass fraction] 99 % Michealflavio [employer] Other [employer] Other 07-24-2023 14:45-0400 Systolic blood pressure 125 mm[Hg] Micheal Bowling Other [employer] Other 06-16-2023 08:30-0400 Body height 149.86 cm Micheal [employer] Other [employer] Other 06-16-2023 08:30-0400 Body mass index (BMI) [Ratio] 29.49 kg/m2 Micheal Dash Other [employer] Other 06-16-2023 08:30-0400 Body weight 66.23 kg Micheal Bowling Other [employer] Other 06-16-2023 08:30-0400 Diastolic blood pressure 96 mm[Hg] Micheal Bowling Other [employer] Other 06-16-2023 08:30-0400 Respiratory rate 18 /min Micheal Bowling Other [employer] Other 06-16-2023 08:30-0400 SaO2% (BldA) [Mass fraction] 98 % Micheal Bowling Other [employer] Other 06-16-2023 08:30-0400 Systolic blood pressure 154 mm[Hg] Micheal Bowling Other [employer] Other 02-07-2023 10:30-0400 Body height 149.86 cm Micheal Bowling Other [employer] Other 02-07-2023 10:30-0400 Body mass index (BMI) [Ratio] 30.7 kg/m2 Micheal Bowling Other [employer] Other 02-07-2023 10:30-0400 Body weight 68.95 kg Micheal Bowling Other [employer] Other 02-07-2023 10:30-0400 Diastolic blood pressure 96 mm[Hg] Micheal Bowling Other [employer] Other 02-07-2023 10:30-0400 Respiratory rate 16 /min Michealflavio Bowling Other [employer] Other 02-07-2023 10:30-0400 SaO2% (BldA) [Mass fraction] 94 % Micheal Bowling Other [employer] Other 02-07-2023 10:30-0400 Systolic blood pressure 156 mm[Hg] Micheal Bowling Other [employer] Other 02-04-2023 20:36-0400 Diastolic blood pressure 93 mm[Hg] [employer] [facility] 02-04-2023 20:36-0400 Heart rate 72 /min Kvantumylinn [facility] 02-04-2023 20:36-0400 Mean blood pressure 115 mm[Hg] Kaylinn [facility] 02-04-2023 20:36-0400 Respiratory rate 18 /min Kaylinn [facility] 02-04-2023 20:36-0400 SaO2% (BldA) [Mass fraction] 96 % Kaylinn [facility] 02-04-2023 20:36-0400 Systolic blood pressure 160 mm[Hg] [facility]linn [facility] 02-04-2023 20:12-0400 Diastolic blood pressure 104 mm[Hg] [facility]linn [facility] 02-04-2023 20:12-0400 Heart rate 78 /min Kaylinn [facility] 02-04-2023 20:12-0400 Mean blood pressure 126 mm[Hg] Kaylinn [facility] 02-04-2023 20:12-0400 SaO2% (BldA) [Mass fraction] 99 % Kaylinn [facility] 02-04-2023 20:12-0400 Systolic blood pressure 169 mm[Hg] Kaylinn [facility] 02-04-2023 20:00-0400 Hourly Rounding Kaylinn Dok[facility] 02-04-2023 20:00-0400 Promise to Return Kaylinn Dokken [facility] 02-04-2023 19:00-0400 Hourly Rounding Mary Ellenn Dojamelen [facility] 02-04-2023 19:00-0400 Promise to Return Karaissainn Dokken [facility] 02-04-2023 18:53-0400 Body temperature 97.88 [degF] Cyndyinn Dokken [facility] 02-04-2023 18:53-0400 Diastolic blood pressure 94 mm[Hg] Cyndyinn Dok[facility] 02-04-2023 18:53-0400 Heart rate 91 /min Cyndyinn Dokken [facility] 02-04-2023 18:53-0400 Respiratory rate 18 /min Mary Ellenn [facility] 02-04-2023 18:53-0400 SaO2% (BldA) [Mass fraction] 96 % Mary Ellenn [facility] 02-04-2023 18:53-0400 Systolic blood pressure 147 mm[Hg] Cyndyinn [facility]okken [facility] 01-17-2023 09:15-0400 Body height 149.86 cm Micheal Bowling Other [employer] Other 01-17-2023 09:15-0400 Body mass index (BMI) [Ratio] 31.71 kg/m2 Micheal Bowling Other [employer] Other 01-17-2023 09:15-0400 Body weight 71.22 kg Micheal Bowling Other [employer] Other 01-17-2023 09:15-0400 Diastolic blood pressure 90 mm[Hg] Michealflavio [employer] Other [employer] Other 01-17-2023 09:15-0400 Respiratory rate 18 /min Micheal Bowling Other [employer] Other 01-17-2023 09:15-0400 SaO2% (BldA) [Mass fraction] 98 % Michealflavio [employer] Other [employer] Other 01-17-2023 09:15-0400 Systolic blood pressure 142 mm[Hg] Micheal Dash Other [employer] Other 12-27-2022 11:30-0400 Body height 149.86 cm Michealflavio [employer] Other [employer] Other 12-27-2022 11:30-0400 Body mass index (BMI) [Ratio] 32.92 kg/m2 Micheal Bowling Other [employer] Other 12-27-2022 11:30-0400 Body weight 73.94 kg Micheal Bowling Other [employer] Other 12-27-2022 11:30-0400 Diastolic blood pressure 85 mm[Hg] Micheal Bowling Other [employer] Other 12-27-2022 11:30-0400 Respiratory rate 18 /min Micheal Dash Other [employer] Other 12-27-2022 11:30-0400 SaO2% (BldA) [Mass fraction] 99 % Micheal Bowling Other [employer] Other 12-27-2022 11:30-0400 Systolic blood pressure 132 mm[Hg] Micheal Bowling Other [employer] Other 12-16-2022 11:00-0400 Body height 149.86 cm Macey Licona Other [employer] Other 12-16-2022 11:00-0400 Body mass index (BMI) [Ratio] 33.73 kg/m2 Macey Licona Other [employer] Other 12-16-2022 11:00-0400 Body temperature 97.1 [degF] Macey Licona Other [employer] Other 12-16-2022 11:00-0400 Body weight 75.75 kg Macey Licona Other [employer] Other 12-16-2022 11:00-0400 Respiratory rate 18 /min Macey Licona Other [employer] Other 12-16-2022 11:00-0400 SaO2% (BldA) [Mass fraction] 96 % Macey Licona Other [employer] Other 12-13-2022 09:30-0500 Body height 149.86 cm Micheal Bowling Other [employer] Other 12-13-2022 09:30-0500 Body mass index (BMI) [Ratio] 33.73 kg/m2 Micheal Bowling Other [employer] Other 12-13-2022 09:30-0500 Body weight 75.75 kg Micheal Bowling Other [employer] Other 12-13-2022 09:30-0500 Diastolic blood pressure 86 mm[Hg] Micheal Bowling Other [employer] Other 12-13-2022 09:30-0500 Respiratory rate 18 /min Micheal Bowling Other [employer] Other 12-13-2022 09:30-0500 SaO2% (BldA) [Mass fraction] 97 % Micheal Bowling Other [employer] Other 12-13-2022 09:30-0500 Systolic blood pressure 132 mm[Hg] Micheal Bowling Other [employer] Other 10-04-2022 09:00-0500 Body height 149.86 cm Micheal Bowling Other [employer] Other 10-04-2022 09:00-0500 Body mass index (BMI) [Ratio] 33.52 kg/m2 Micheal Bowling Other [employer] Other 10-04-2022 09:00-0500 Body weight 75.3 kg Micheal Bowling Other [employer] Other 10-04-2022 09:00-0500 Diastolic blood pressure 90 mm[Hg] Micheal Bowling Other [employer] Other 10-04-2022 09:00-0500 Respiratory rate 16 /min Micheal Bowling Other [employer] Other 10-04-2022 09:00-0500 SaO2% (BldA) [Mass fraction] 96 % Micheal Bowling Other [employer] Other 10-04-2022 09:00-0500 Systolic blood pressure 140 mm[Hg] Micheal Bowling Other [facility] Other 09-13-2022 08:25-0500 Diastolic blood pressure 103 mm[Hg] DO Micheal Guys Work Phone: [facility] 09-13-2022 08:25-0500 Heart rate 71 /min DO Michealflavio Tovars Work Phone: [facility] 09-13-2022 08:25-0500 Respiratory rate 16 /min DO Micheal Guys Work Phone: [facility] 09-13-2022 08:25-0500 SaO2% (BldA) [Mass fraction] 96 % DO Micheal Tovars Work Phone: [facility] 09-13-2022 08:25-0500 Systolic blood pressure 146 mm[Hg] DO Michealflavio Tovars Work Phone: [facility] 09-13-2022 06:55-0500 Body height 148.59 cm DO Michael Guys Work Phone: [facility] 09-13-2022 06:55-0500 Body mass index (BMI) [Ratio] 34.9 kg/m2 DO Michealflavio Tovars Work Phone: [facility] 09-13-2022 06:55-0500 Body weight 77.11 kg DO Micheal Guys Work Phone: [facility] 09-13-2022 06:00-0500 Body temperature 97.9 [degF] DO Micheal Guys Work Phone: [facility] 07-24-2022 08:15-0400 Body height 149.86 cm Michealflavio Tovars Other [facility] Other 07-24-2022 08:15-0400 Body mass index (BMI) [Ratio] 34.53 kg/m2 Michealflavio Bowling Other [employer] Other 07-24-2022 08:15-0400 Body weight 77.57 kg Michealflavio Bowling Other [employer] Other 07-24-2022 08:15-0400 Diastolic blood pressure 90 mm[Hg] Micheal Bowling Other [employer] Other 07-24-2022 08:15-0400 Respiratory rate 18 /min Micheal Bowling Other [employer] Other 07-24-2022 08:15-0400 SaO2% (BldA) [Mass fraction] 98 % Micheal Guyalix Other [employer] Other 07-24-2022 08:15-0400 Systolic blood pressure 136 mm[Hg] Micheal Bowling Other [employer] Other 05-23-2022 13:45-0400 Body height 149.86 cm Micheal Bowling Other [employer] Other 05-23-2022 13:45-0400 Body mass index (BMI) [Ratio] 34.7 kg/m2 Micheal Bowling Other [employer] Other 05-23-2022 13:45-0400 Body weight 77.93 kg Micheal Bowling Other [employer] Other 05-23-2022 13:45-0400 Diastolic blood pressure 84 mm[Hg] Micheal Bowlign Other [employer] Other 05-23-2022 13:45-0400 Respiratory rate 16 /min Michealflavio Bowling Other [employer] Tech Other 05-23-2022 13:45-0400 SaO2% (BldA) [Mass fraction] 98 % Michealflavio Tov[employer]ix Other [employer] Other 05-23-2022 13:45-0400 Systolic blood pressure 136 mm[Hg] Micheal Dash Other [employer] Other 05-14-2022 14:15-0400 Body height 149.86 cm Micheal Tovaralix Other [employer] Other 05-14-2022 14:15-0400 Body mass index (BMI) [Ratio] 34.13 kg/m2 Michealflavio [employer] Other [employer] Other 05-14-2022 14:15-0400 Body weight 76.66 kg Micheal Bowling Other [employer] Other 05-14-2022 14:15-0400 Diastolic blood pressure 80 mm[Hg] Micheal Dash Other [employer] Other 05-14-2022 14:15-0400 Respiratory rate 16 /min Micheal Dash Other [employer] Other 05-14-2022 14:15-0400 SaO2% (BldA) [Mass fraction] 96 % Micheal Bowling Other [employer] Other 05-14-2022 14:15-0400 Systolic blood pressure 134 mm[Hg] Micheal Bowling Other [employer] Other 05-06-2022 15:00-0400 Body height 149.86 cm Micheal Bowling Other [employer] Other 05-06-2022 15:00-0400 Body mass index (BMI) [Ratio] 32.92 kg/m2 Micheal Bowling Other [employer] Other 05-06-2022 15:00-0400 Body weight 73.94 kg Micheal Bowling Other [employer] Other 05-06-2022 15:00-0400 Diastolic blood pressure 94 mm[Hg] Micheal Bowling Other [employer] Other 05-06-2022 15:00-0400 Respiratory rate 16 /min Micheal Bowling Other [employer] Other 05-06-2022 15:00-0400 SaO2% (BldA) [Mass fraction] 96 % Micheal Bowling Other [employer] Other 05-06-2022 15:00-0400 Systolic blood pressure 134 mm[Hg] Micheal Bowling Other [employer] Other 02-05-2022 16:45-0400 Body height 149.86 cm Micheal Bowling Other [employer] Other 02-05-2022 16:45-0400 Body mass index (BMI) [Ratio] 33.52 kg/m2 Micheal Bowling Other [employer] Other 02-05-2022 16:45-0400 Body weight 75.3 kg Micheal Bowling Other [employer] Other 02-05-2022 16:45-0400 Diastolic blood pressure 98 mm[Hg] Michealflavio T[employer]ix Other [employer] Other 02-05-2022 16:45-0400 Respiratory rate 16 /min Micheal Dash Other [employer] Other 02-05-2022 16:45-0400 SaO2% (BldA) [Mass fraction] 98 % Micheal Dash Other [employer] Other 02-05-2022 16:45-0400 Systolic blood pressure 162 mm[Hg] Micheal Bowling Other [employer] Other 2021 14:45-0500 Body height 149.86 cm Micheal Tovaralix Other [employer] Other 2021 14:45-0500 Body mass index (BMI) [Ratio] 33.73 kg/m2 Micheal Dash Other [employer] Other 2021 14:45-0500 Body weight 75.75 kg Micheal Dash Other [employer] Other 2021 14:45-0500 Diastolic blood pressure 90 mm[Hg] Micheal Bowling Other [employer] Other 2021 14:45-0500 Respiratory rate 16 /min Micheal Bowling Other [employer] Other 2021 14:45-0500 SaO2% (BldA) [Mass fraction] 98 % Micheal Bowling Other [employer] Other 2021 14:45-0500 Systolic blood pressure 150 mm[Hg] Micheal Dash Other [employer] Other 11-07-2021 10:45-0500 Body height 149.86 cm Micheal Bowling Other [employer] Other 11-07-2021 10:45-0500 Body mass index (BMI) [Ratio] 33.12 kg/m2 Micheal Bowling Other [employer] Other 11-07-2021 10:45-0500 Body weight 74.39 kg Michealflavio [employer] Other [employer] Other 11-07-2021 10:45-0500 Diastolic blood pressure 95 mm[Hg] Micheal Bowling Other [employer] Other 11-07-2021 10:45-0500 Respiratory rate 18 /min Micheal Tovaralix Other [employer] Other 11-07-2021 10:45-0500 SaO2% (BldA) [Mass fraction] 98 % Micheal Bowling Other [employer] Other 11-07-2021 10:45-0500 Systolic blood pressure 145 mm[Hg] Micheal Bowling Other [employer] Other 09-22-2021 09:15-0500 Body height 149.86 cm Micheal Bowling Other [employer] Other 09-22-2021 09:15-0500 Body mass index (BMI) [Ratio] 33.52 kg/m2 Micheal Bowling Other [employer] Other 09-22-2021 09:15-0500 Body weight 75.3 kg Micheal Bowling Other [employer] Other 09-22-2021 09:15-0500 Diastolic blood pressure 92 mm[Hg] Micheal Bowlign Other [employer] Other 09-22-2021 09:15-0500 Respiratory rate 16 /min Micheal Bowling Other [employer] Other 09-22-2021 09:15-0500 SaO2% (BldA) [Mass fraction] 98 % Micheal Bowling Other [employer] Other 09-22-2021 09:15-0500 Systolic blood pressure 134 mm[Hg] Micheal Bowling Other [employer] Other Encounters Encounter Date Encounter Type Care Provider Facility Start: 10-28-2024 End: 10-28-2024 Patient encounter procedure Micheal Bowling DO Work Phone: [facility] [place] Work Phone: Start: 10-28-2024 End: 10-28-2024 ambulatory Micheal Bowling DO Work Phone: [facility] Work Phone: Start: 10-21-2024 End: 10-21-2024 ambulatory [facility] Work Phone: Start: 10-21-2024 End: 10-21-2024 Patient encounter procedure [facility] [place] Work Phone: Start: 09-08-2024 End: 09-08-2024 Patient encounter status Maycol Clark DO Work Phone: [facility] Start: 09-08-2024 End: 09-08-2024 Periodic preventive med est patient 40-64yrs Maycol Clark DO Work Phone: [facility] Comment on above: Encounter for gyneco logical examination without abnormal finding; Encounter for Papanicolaou smear of vagina; Breast cancer screening by mammogram Start: 08-26-2024 End: 08-26-2024 ambulatory [facility] Work Phone: Start: 08-26-2024 End: 08-26-2024 Patient encounter procedure [facility] Work Phone: Start: 07-26-2024 End: 07-26-2024 ambulatory LAN M WORKMAN Not Available Start: 07-26-2024 End: 07-26-2024 Office outpatient new 30 minutes Summer M Workman PA Work Phone: [facility] Comment on above: Upper respiratory tr act infection, unspecified type (Primary Dx); Pharyngitis, unspecified etiology Start: 06-22-2024 End: 06-22-2024 ambulatory DO Micheal Bowling Work Phone: [facility] Work Phone: Start: 06-22-2024 End: 06-22-2024 Patient encounter procedure DO Micheal Bowling Work Phone: [facility] Work Phone: Start: 04-27-2024 End: 04-27-2024 ambulatory DO Micheal Bowling Work Phone: [facility] Work Phone: Start: 04-27-2024 End: 04-27-2024 Patient encounter procedure DO Micheal Bowling Work Phone: [facility] Work Phone: Start: 04-26-2024 End: 04-26-2024 ambulatory MAYCOL CLARK Not Available Start: 04-07-2024 End: 04-07-2024 Patient encounter procedure DO Micheal Bowling Work Phone: [facility] [place] Work Phone: Start: 04-07-2024 End: 04-07-2024 ambulatory DO Micheal Bowling Work Phone: [facility] Work Phone: Start: 03-22-2024 Non-patient / Non-visit DO Jem Bowling Work Phone: [facility] Family Medicine [place] Work Phone: Start: 03-02-2024 End: 03-02-2024 ambulatory [facility] Work Phone: Start: 03-02-2024 End: 03-02-2024 Patient encounter [facility] Family [facility] [place] Work Phone: Start: 01-28-2024 End: 01-28-2024 ambulatory [facility] Work Phone: Start: 01-28-2024 End: 01-28-2024 Patient encounter procedure [facility] Family [facility] [place] Work Phone: Start: 01-20-2024 Non-patient / Non-visit [facility] Work Phone: Start: 01-12-2024 End: 01-12-2024 ambulatory MAYCOL CLARK Not Available Start: 01-05-2024 End: 01-05-2024 ambulatory LAMONT LONG Not Available Start: 12-26-2023 End: 12-27-2023 ambulatory XXXX NONE Facility:[facility] Start: 12-26-2023 End: 12-26-2023 Patient encounter procedure Aly Castellanos [facility] Start: 12-16-2023 End: 12-17-2023 ambulatory Brown NEGRO Facility:[facility] Start: 12-16-2023 End: 12-16-2023 Patient encounter procedure Aly Castellanos [facility] Start: 12-16-2023 End: 12-16-2023 ambulatory LAMONT Blackwood ETHAN Not Available Start: 12-08-2023 Non-patient / Non-visit [facility] [employer] Work Phone: Start: 11-28-2023 End: 11-28-2023 ambulatory DO Micheal Bowling Work Phone: [facility] Work Phone: Start: 11-28-2023 End: 11-28-2023 Patient encounter procedure DO Micheal Bowling Work Phone: [facility] [place] Work Phone: Start: 11-21-2023 End: 11-22-2023 ambulatory Aly Castellanos Facility:[facility] Start: 11-21-2023 End: 11-21-2023 Patient encounter procedure Aly Castellanos [facility] Start: 10-30-2023 End: 10-31-2023 ambulatory XXXX NONE Facility:[facility] Start: 10-30-2023 End: 10-30-2023 Patient encounter procedure Aly Castellanos [facility] Start: 10-16-2023 End: 10-16-2023 ambulatory Micheal Bowling Other [facility] Other Start: 10-16-2023 Telephone encounter Micheal Bowling [facility] [place] Start: 10-09-2023 End: 10-09-2023 ambulatory Micheal Bowling Other [facility] Other Start: 10-09-2023 Office outpatient vi sit 15 minutes Micheal Dash [facility] [place] Start: 10-09-2023 End: 10-09-2023 Patient encounter procedure DO Micheal Bowling Work Phone: [facility] Family [facility] [place] Work Phone: Start: 09-18-2023 End: 09-19-2023 ambulatory WILLIAM LIEBERMAN Not Available Start: 09-17-2023 End: 09-17-2023 ambulatory Micheal Bowling Other [employer] Other Start: 09-17-2023 Telephone encounter Micheal Bowling [facility] [place] Start: 09-05-2023 End: 09-05-2023 ambulatory Micheal Bowling Other [employer] Other Start: 09-05-2023 Office outpatient vi sit 25 minutes Michael Bowling [facility] [place] Start: 09-05-2023 End: 09-05-2023 Patient encounter procedure DO Mciheal Bowling Work Phone: [facility] [place] Work Phone: Start: 09-05-2023 End: 09-05-2023 Patient encounter procedure DO Micheal Bowling Work Phone: [facility] Family [facility] [place] Work Phone: Start: 09-03-2023 End: 09-03-2023 ambulatory PACO GINNY Not Available Start: 09-02-2023 End: 09-02-2023 ambulatory Micheal Bowling Other [employer] Other Start: 09-02-2023 Telephone encounter Micheal Bowling [facility] [place] Start: 08-25-2023 End: 08-25-2023 ambulatory LAMONT LONG Not Available Start: 07-31-2023 End: 07-31-2023 ambulatory Micheal Bowling Other [employer] Other Start: 07-31-2023 Telephone encounter Micheal Bowling [facility] [place] Start: 07-24-2023 End: 07-24-2023 ambulatory Micheal Bowling Other [employer] Other Start: 07-24-2023 Office outpatient vi sit 15 minutes Micheal Dash [facility] [place] Start: 07-09-2023 End: 07-09-2023 ambulatory Micheal Guyalix Other [employer] Other Start: 07-09-2023 Telephone encounter Micheal Bowling [facility] [place] Start: 07-07-2023 End: 07-07-2023 ambulatory Micheal Guyalix Other [employer] Other Start: 07-07-2023 Telephone encounter Michealflavio Bowling [facility] Start: 06-24-2023 End: 06-24-2023 ambulatory Micheal Guyalix Other [employer] Other Start: 06-24-2023 Telephone encounter [facility] Bow[facility] Start: 06-18-2023 End: 06-18-2023 ambulatory DO Micheal Guyalix Work Phone: [facility] Work Phone: Start: 06-18-2023 End: 06-18-2023 Patient encounter procedure DO Michealflavio Tovaralix Work Phone: [facility] [place] Work Phone: Start: 06-16-2023 End: 06-16-2023 ambulatory Micheal Tovaralix Other [employer] Other Start: 06-16-2023 Office outpatient vi sit 25 minutes Micheal Bowling [facility] [place] Start: 06-12-2023 End: 06-12-2023 ambulatory Michealflavio Bowling Other [employer] Other Start: 06-12-2023 Telephone encounter Micheal Bowling [facility] [place] Start: 04-11-2023 End: 04-11-2023 ambulatory Michealflavio Bowling Other [employer] Other Start: 04-11-2023 Telephone encounter Michealflavio Bowling [facility] [place] Start: 02-10-2023 End: 02-10-2023 ambulatory Micheal Guyalix Other [employer] Other Start: 02-10-2023 Telephone encounter Michealflavio Bowling [facility] [place] Start: 02-07-2023 End: 02-07-2023 ambulatory Micheal Guyalix Other [employer] Other Start: 02-07-2023 Office outpatient vi sit 15 minutes Micheal Bowling [facility] [place] Start: 02-04-2023 End: 02-04-2023 Emergency department patient visit Glia Beasley Facility:[facility] Start: 02-04-2023 End: 02-04-2023 Emergency department patient visit Gila Beasley [facility] Start: 01-23-2023 End: 01-23-2023 ambulatory Michealflavio Bowling Other [employer] Other Start: 01-23-2023 Telephone encounter Michealflavio Bowling [facility] [place] Start: 01-17-2023 End: 01-17-2023 ambulatory Michealflavio Bowling Other [employer] Other Start: 01-17-2023 Office outpatient vi sit 25 minutes Micheal Bowling [facility] [place] Start: 01-12-2023 End: 01-12-[address] MICHEAL BOWLING Facility: Start: 12-31-2022 End: 12-31-2022 ambulatory Micheal Bowling Other [employer] Other Start: 12-31-2022 Telephone encounter Micheal Bowling [facility] [place] Start: 12-27-2022 End: 12-27-2022 ambulatory Micheal Bowling Other [employer] Other Start: 12-27-2022 Office outpatient vi sit 15 minutes Micheal Bolwing [facility] [place] Start: 12-16-2022 End: 12-16-2022 ambulatory Macey Licona Other [employer] Other Start: 12-16-2022 Office outpatient vi sit 25 minutes Macey Licona [facility] Start: 12-16-2022 Telephone encounter Micheal Bowling [facility] Start: 12-13-2022 End: 12-13-2022 ambulatory Micheal Bowling Other [employer] Other Start: 12-13-2022 Office outpatient vi sit 25 minutes Micheal Bowling [facility] [place] Start: 11-07-2022 End: 11-07-2022 ambulatory Macey Floyd Other [employer] Other Start: 11-07-2022 Telephone encounter Macey Floyd [facility] Start: 10-30-2022 End: 10-30-2022 ambulatory Micheal Bowling Other [employer] Other Start: 10-30-2022 Telephone encounter Micheal Bowling [facility] [place] Start: 10-23-2022 End: 10-23-2022 ambulatory Micheal Bowling Other [employer] Other Start: 10-23-2022 Telephone encounter Micheal Bowling [facility] [place] Start: 10-16-2022 End: 10-16-2022 ambulatory Micheal Bowling Other [employer] Other Start: 10-16-2022 Telephone encounter Micheal Bowling [facility] [place] Start: 10-04-2022 End: 10-04-2022 ambulatory Micheal Bowling Other [employer] Other Start: 10-04-2022 Office outpatient vi sit 15 minutes Micheal Bowling [facility] [place] Start: 09-18-2022 End: 09-18-[address] MICHEAL BOWLING Facility: Start: 09-13-2022 End: 09-13-2022 Admission to same day surgery center DO Micheal Bowling Work Phone: [facility] [place] Start: 09-13-2022 End: 09-13-2022 ambulatory DO Micheal Bowling Work Phone: [facility] Work Phone: Start: 07-24-2022 End: 07-24-2022 ambulatory Micheal Bowling Other [employer] Other Start: 07-24-2022 Office outpatient vi sit 15 minutes Micheal Bowling [facility] [place] Start: 06-27-2022 End: 06-27-2022 ambulatory Micheal Bowling Other [employer] Other Start: 06-27-2022 Telephone encounter Micheal Bowling [facility] [place] Start: 05-23-2022 End: 05-23-2022 ambulatory Micheal Bowling Other [employer] Other Start: 05-23-2022 Office outpatient vi sit 25 minutes Micheal Bowling [facility] [place] Start: 05-15-2022 End: 05-15-2022 Patient encounter procedure DO Micheal Bowling Work Phone: [facility] [place] Start: 05-14-2022 End: 05-14-2022 Patient encounter procedure DO Micheal Bowling Work Phone: [facility] [place] Start: 05-14-2022 End: 05-14-2022 ambulatory Micheal Bowling Other [employer] Other Start: 05-14-2022 Office outpatient vi sit 15 minutes Micheal Bowling [facility] Start: 05-12-2022 End: 05-12-[address] MICHEAL BOWLING Facility:[facility] Start: 05-06-2022 End: 05-06-2022 ambulatory Micheal Bowling Other [employer] Other Start: 05-06-2022 Office outpatient vi sit 15 minutes Micheal Bolwing [facility] Start: 04-29-2022 End: 04-29-2022 ambulatory Micheal Bowling Other [employer] Other Start: 04-29-2022 Telephone encounter Micheal Bowling [facility] Start: 04-16-2022 End: 04-16-2022 ambulatory Micheal Bowling Other [employer] Other Start: 04-16-2022 Telephone encounter Micheal Bowling [facility] Start: 04-15-2022 End: 04-15-2022 ambulatory Micheal Bowling Other [employer] Other Start: 04-15-2022 Telephone encounter Micheal Bowling [facility] Start: 03-19-2022 End: 03-20-[address] MICHEAL BOWLING Facility:[facility] Start: 02-27-2022 End: 02-27-2022 ambulatory Micheal Bowling Other [employer] Other Start: 02-27-2022 Telephone encounter Micheal Bowling [facility] [place] Start: 02-27-2022 End: 02-27-[address] MICHEAL BOWLING Facility: Start: 02-12-2022 End: 02-12-2022 ambulatory Micheal Bowling Other [employer] Other Start: 02-12-2022 Telephone encounter Micheal Bowling [facility] [place] Start: 02-07-2022 End: 02-07-2022 ambulatory Micheal Bowling Other [employer] Other Start: 02-07-2022 Telephone encounter Micheal Bowling [facility] [place] Start: 02-05-2022 End: 02-05-2022 ambulatory Micheal Bowling Other [employer] Other Start: 02-05-2022 Office outpatient vi sit 25 minutes Micheal Bowling [facility] [place] Start: 01-29-2022 End: 01-29-2022 ambulatory Micheal Bowling Other [employer] Other Start: 01-29-2022 Telephone encounter Micheal Bowling [facility] [place] Start: 2021 End: 2021 ambulatory Micheal Bowling Other [employer] Other Start: 2021 Office outpatient vi sit 25 minutes Micheal Bowling [facility] [place] Start: 11-07-2021 End: 11-07-2021 ambulatory Micheal Bowling Other [employer] Other Start: 11-07-2021 Office outpatient vi sit 15 minutes Micheal Bowling [facility] [place] Start: 10-18-2021 End: 10-18-2021 ambulatory Micheal Bowling Other [employer] Other Start: 10-18-2021 Telephone encounter Micheal Bowling [facility] Start: 10-10-2021 End: 10-10-2021 ambulatory Micheal Bowling Other [employer] Other Start: 10-10-2021 Telephone encounter Micheal Bowling [facility] Start: 09-22-2021 End: 09-22-2021 ambulatory Micheal Bowling Other [employer] Other Start: 09-22-2021 Office outpatient vi sit 15 minutes Micheal Bowling [facility] Start: 08-23-2021 End: 08-23-2021 ambulatory Micheal Bowling Other [employer] Other Start: 08-23-2021 Telephone encounter Micheal Bowling [facility] Start: 04-13-2018 Ambulatory PROVIDER UNKNOWN Facili ty:[id number] Start: 04-13-2018 Ambulatory Facility:9 [id number] Start: 09-10-2017 Ambulatory [facility] Facility:[facility] Procedures Date Procedure Procedure Detail Performing Clinician Start: 07-26-2024 Iadna streptococcus group a amplified probe tq Miquel Ortega DO Work Phone: Start: 07-26-2024 STATUS COVID-19/FLU Ant laura Ortega DO Work Phone: Start: 06-22-2024 Quick Strep (POC) Start: 06-22-2024 RSV (POC) Start: 01-12-2024 Mammography Summer Wor kika RUIZ Work Phone: Start: 09-13-2022 Colposcopy of vulva DO Micheal Bowling Work Phone: Start: 05-14-2022 X-ray of lumbar spin e, four or more views DO Micheal Bowling Work Phone: Start: 05-14-2022 X-ray of both knees DO Micheal Bowling Work Phone: Gallbladder structur e (body structure) Aly Castellanos History and physical examination, school Micheal Bowling Other Hysterectomy Aly patel Plan of Treatment Date Care Activity Detail Author Start: 01-12-2025 End: 11-09-2025 DBT Breast - bilateral screening Bilateral screening mammogram with tomosynthesis Imaging Routine Breast cancer screening by mammogram Expected: 01/12/2025, Expires: 11/09/2025 [facility] Comment on above: Expected: 01/12/2025 , Expires: 11/09/2025 Start: 01-11-2025 Screening for malignant neoplasm of breast Mammogram [facility] Start: 10-28-2024 Estradiol (E2) [Mass/volume] in Serum or Plasma [facility] Start: 10-28-2024 Lipoprotein a [Moles/volume] in Serum or Plasma [facility] Start: 10-28-2024 [facility] Start: 08-24-2024 End: 08-24-2024 Patient encounter procedure 08/24/2024 9:30 AM EST Office Visit [facility] [address] [facility] [address] [place] [id number], C[employer]TR[employer] 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 [facility] [address] [place] [address] [facility] Start: 08-20-2024 End: 08-20-2024 Patient encounter procedure 08/20/2024 8:45 AM EST Office Visit [facility] [address] [place] [address] Maycol Clark, DO [address] [place] [address] [facility] Start: 06-06-2024 Influenza vaccination Influenza Vacc ine (#1) [facility] Start: 09-13-2022 End: 09-13-2022 [facility] Start: 12-05-2007 Screening for malignant neoplasm of cervix [facility] Start: 1998 Screening for malignant neoplasm of cervix Pap Smear [facility] Start: 1977 Screening for malignant neoplasm of colon [facility] Estradiol (E2) [Mass/volume] in Serum or Plasma [facility] Glucose measurement estimated from glycated hemoglobin [facility] Hemoglobin A1c/Hemoglobin.total in Blood [facility] IGP,rfxAptima HPV all,16/18,45 IGP,rfxAptima HPV all,16/18,45 Pathology and Cytology Routine Encounter for Papanicolaou smear of vagina Ordered: 09/08/2024 [facility] Work Phone: Comment on above: Ordered: 09/08/2024 Patient Education Low back pain in adults [facility] Work Phone: Patient referral [facility] Work Phone: [facility] Immunizations Immunization Date Immunization Notes Care Provider Fa cili 08-13-2021 influenza, injectabl e, quadrivalent, preservative free Summer Workman PA Work Phone: [facility] 08-13-2021 influenza virus vaccine, unspecified formulation Summer Workman PA Work Phone: [facility] 01-23-2021 COVID-19 Vaccine Pfi zer - Documentation Purposes Only Micheal Dash Other [facility] 12-29-2020 COVID-19 Vaccine Pfi zer - Documentation Purposes Only Micheal Bowling Other [facility] 06-06-2020 influenza, injectabl e, quadrivalent, preservative free Summer Workman PA Work Phone: [facility] 08-04-2018 seasonal influenza, intradermal, preservative free Summer Workman PA Work Phone: [facility] Payers Date Payer Category Payer Unknown 2021 Private Health Insurance [employer] [id number] 2015 [facility] [id number] 1975 Unknown [id number] 2.16.840.1.500959.3.579.2. 593 1975 Unknown [id number] 2.16.840.1.794586.3.579.2. 593 1975 Unknown [id number] 2.16.840.1.505034.3.579.2. 593 1975 Unknown [id number] 2.16.840.1.442144.3.579.2. 593 1977 Unknown [id number] 2.16.840.1.989259.3.579.2. 593 1977 Unknown [id number] 2.16.840.1.023839.3.579.2. 727 1975 Unknown [id number] 2.16.840.1.828658.3.579.2. 727 1975 Unknown [id number] 2.16.840.1.653396.3.579.2. 727 1975 Unknown [id number] 2.16.840.1.807395.3.579.2. 727 1977 Unknown [id number] 2.16.840.1.704578.3.579.2. 727 1977 Unknown [id number] 2.16.840.1.585453.3.579.2. 1259 1977 Unknown [id number] 2.16.840.1.598452.3.579.2. 9 1977 Unknown [id number] 2.16.840.1.835718.3.579.2. 9 1977 Unknown [id number] 2.16.840.1.571252.3.579.2. 9 1977 Unknown [id number] 2.16.840.1.590708.3.579.2. 1258 1977 Unknown [id number] 2.16.840.1.260438.3.579.2. 9 1977 Unknown [id number] 2.16.840.1.044038.3.579.2. 1258 1977 Unknown [id number] 2.16.840.1.195662.3.579.2. 9 1977 Unknown [id number] 2.16.840.1.933412.3.579.2. 9 1957 Medicaid [id number] 2.16.840.1.906464.19 1959 Unknown [id number] 1957 Unknown [id number] 2.16.840.1.179610.19 Self-pay Self Pay [id number] Social History Date Type Detail Facility Unknown if ever smoked [facility] Start: 07-26-2024 End: 09-08-[address] [facility] Start: 06-02-2020 End: 10-25-2023 Tobacco smoking status NHIS Never smoked tobacco (finding) [facility] Start: 1975 Sex Assigned At Female [facility] Tobacco [facility] Comment on above: Denies. denies Tobacco smoking status No Smokin g Status Entered [facility] Start: 07-22-2023 Tobacco use and exposure Smokeless tobacco non-user [facility] Start: 07-26-2024 End: 09-08-2024 Alcoholic beverage intake Current drinker of alcohol (finding) [facility] Start: 07-26-2024 End: 09-08-2024 Alcoholic beverage intake [facility] Start: 08-12-2023 Alcohol Comment Caffeine intak e: 2-3 cups per day [facility] Start: 1975 Sex assigned at Not on file [facility] Start: 08-26-2024 End: 10-29-2024 Sex Female (finding) [facility] How often to you hav e a drink containing alcohol? Monthly or less [facility] How many standard drinks containing alcohol do you have on a typical day? 1 or 2 [facility] How often do you hav e 6 or more drinks on 1 occasion? Never [facility] Goals Date Patient Goal Desired Activity /State Functional Status Date Assessment Result Facility 12-26-2023 Functional Status N/A [facility] 10-30-2023 Functional Status No [facility] 02-04-2023 Functional Status N/A [facility] Clinical Notes 08-06-2009 to 09-08-2024 Fior Lees MA - 09/08/2024 4:00 PM EST Note Date & Type Note Facility 09-08-2024 History of Presen t illness Narrative Images from the original note were not included. Maycol Clark, DO Obstetrics and Gynecology Brandon Long 1975 09/08/24 [id number] Yearly Wellness Exam Chief Complaint Patient presents with Gynecologic Exam LMP: LAVH BS 2015 HRT: None Last pap 08-13-23 neg. Last mammogram 01-12-24 [facility]. Denies breast, urinary, or bowel concerns. Visit Vitals BP 124/74 Ht 4' 10.5 Wt 162 lb BMI 33.28 kg/m OB Status Hysterectomy Smoking Status Never BSA 1.74 m OB History Para Term AB Living 9 7 2 7 SAB IAB Ectopic Multiple Live Births 2 7 # Outcome Date GA Lbr [place]/2nd Weight Sex Type Anes PTL Lv 9 Para Vag-Spont SIRI 8 Para Vag-Spont SIRI 7 Para Vag-Spont SIRI 6 Para Vag-Spont SIRI 5 Para Vag-Spont SIRI 4 Para Vag-Spont SIRI 3 Para Vag-Spont SIRI 2 SAB 1 SAB Obstetric Comments Biggest baby 7 lbs 15 oz Current Outpatient Medications Medication Sig Dispense Refill linaCLOtide (Linzess) 72 MCG capsule Daily rOPINIRole (Requip) 1 MG tablet Daily albuterol HFA 90 mcg/act inhaler every 4 (four) hours. amLODIPine (Norvasc) 5 MG tablet Take 5 mg by mouth in the morning and 5 mg before bedtime. MAGNESIUM PO Take by mouth olmesartan (BENIcar) 40 MG tablet TAKE 1 TABLET BY MOUTH EVERY DAY FOR 90 DAYS omeprazole (PriLOSEC) [address] capsule 1 (one) time each day at the same time. ondansetron ODT (Zofran-ODT) 4 MG disintegrating tablet if needed spironolactone (Aldactone) 25 MG tablet TAKE 1 TABLET BY MOUTH EVERY DAY FOR 90 DAYS tiZANidine (Zanaflex) 4 MG tablet if needed No current facility-administered medications for this visit. Allergies Allergen Reactions Betamethasone Other Reaction(s): polyarthralgia Cefdinir Hives Clavulanic Acid GI intolerance Cyclobenzaprine Other Reaction(s): jittery Methylprednisolone GI intolerance Penicillins Other Reaction(s): Hives Phentermine Other Reaction(s): Rapid heart rate Sulfamethoxazole Other Reaction(s): GI issues Sulfamethoxazole-Trimethoprim Other Reaction(s): vomiting Tramadol Other Reaction(s): jittery Trimethoprim Other Reaction(s): unknown Vancomycin Other Reaction(s): hives Past Surgical History: Procedure Laterality Date CHOLECYSTECTOMY 2014 COLPOSCOPY HYSTERECTOMY 12/2015 [facility]/ INCONTINENCE SURGERY 2013 TVT-O SKIN LESION EXCISION 09/13/2022 excision of vulvar lesions [facility] VAGINAL DELIVERY x7- 2001, 1994, 2010, 2002, 2004, 2007, 1997 Past Medical History: Diagnosis Date Abnormal ECG Arthritis Asthma (CMS/HCC) Boudreaux's cyst Bursitis of hip CTS (carpal tunnel syndrome) Depression (CMS/HCC) Hayfever History of medical problems High risk low cholesterol Hypertension (CMS/HCC) Occ. IBS (irritable bowel syndrome) x 9 Varicella zoster ROS Const: Denies appetite change, fever, chills. Allergy: Denies medication reaction. Ocular: Denies visual acuity change. ENT: Denies hearing change. Endoc: Denies weight loss. Resp: Denies dyspnoea, wheezing. Cardiac: Denies angina, palpitations. GI: Denies nausea, vomiting. Haem: Denies bleeding. : Denies incontinence. MSK: Denies arthralgias, joint oedema. Derm: Denies rash, hair loss. Neuro: Denies ataxia, tremor. Also see HPI for elements of ROS documented therein and for details of positive findings, which shall supersede the foregoing. EXAM GENERAL EXAMINATION alert oriented well developed, well nourished. HEAD: normocephalic atraumatic. EYES: sclera anicteric. EARS: no obvious hearing deficit. NECK/THYROID: neck supple no cervical lymphadenopathy no thyromegaly. LYMPH NODES: no axillary, supraclavicular or inguinal adenopathy. SKIN: warm and dry. HEART: regular rate and rhythm. LUNGS: clear to auscultation bilaterally. CHEST:axillary nodes grossly normal. BREASTS:no masses palpable bilaterally, normal nipples bilaterally - everted -finely cystic more UOQ - dense - well supported- axilla negative. ABDOMEN: soft, nontender, nondistended, no masses palpable. BACK: no costovertebral angle tenderness, no obvious scoliosis/kyphosis. 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 EXTREMITIES no edema. NEUROLOGIC: alert and oriented. PSYCH: cooperative with exam. ICD-10-CM 1. Encounter for gynecological examination without abnormal finding Z01.419 Pelvic and breast exam completed. Findings of today's exam discussed with the patient. Continue MSBE. Ca/Vit D recommendations reviewed with the patient. The patient is to contact the office with any changes to her gynecological condition or any changes with breast or bleeding. The patient is to return in 1 year or as needed 2. Encounter for Papanicolaou smear of vagina Z12.72 IGP,rfxAptima HPV all,16/18,45 Thinprep collected. Will notify patient if results are abnormal. 3. Breast cancer screening by mammogram Z12.31 Bilateral screening mammogram with tomosynthesis Screening mammogram ordered. Patient to call and schedule. Entered by Fior Lees MA acting as scribe for Dr. Maycol Clark. Signature Fior Lees MA Date 09/08/24 . Time 4:13 PM . The documentation recorded by the scribe accurately reflects the service(s) I personally performed and the decisions I made. Signature Rafael Clark D.O. Date 09/08/24 Time 5:00PM. documented in this encounter [facility] 08-26-2024 Evaluation note Authored August 26, 2024 3:12pm The above note written by NAHUN Cherry acting as human recorder, note dictated by Dr. Micheal Bowling. Author Taylor Morrison [facility] Authored October 21, 2024 1 :47pm The above note written by Kassandra Morrison LPN, acting as human recorder, note dictated by Dr. Michael Bowling. [facility] Work Phone: 1(147) 559-526010-21-2024 History of Present illness Narrative* SARA Guallpa - 07/26/2024 5:40 PM EDT HPI: Historian of HPI: patient Brandon Long is a 48 y.o. female who presents today to the Urgent Care with the following complaints and denials which have been present for 4 hour(s) pt denies any V/D/N at this time. Denies fevers,chills, myalgias, sob, wheezing. C/O Denies Symptom Comments [] [x] Runny Nose [] [x] Difficulty Swallowing [x] [] Sore Throat [] [x] Cough [] [x] Ear Pain [] [x] Fever [] [x] Chills [] [x] Nasal Congestion [x] [] Myalgia Fatigued [x] [] Sinus Pain [facility] [] [x] Sinus Pressure Additional Comments: pt has taken tylenol OTC medication with relief Allergies Allergen Reactions Betamethasone Other Reaction(s): polyarthralgia Cefdinir Hives Clavulanic Acid GI intolerance Cyclobenzaprine Other Reaction(s): jittery Methylprednisolone GI intolerance Penicillins Other Reaction(s): Hives Phentermine Other Reaction(s): Rapid heart rate Sulfamethoxazole Other Reaction(s): GI issues Sulfamethoxazole-Trimethoprim Other Reaction(s): vomiting Tramadol Other Reaction(s): jittery Trimethoprim Other Reaction(s): unknown Vancomycin Other Reaction(s): hives Visit Vitals Wt 161 lb 9.6 oz BMI 33.20 kg/m OB Status Hysterectomy Smoking Status Never BSA 1.74 m ROS: A complete system ROS was performed and negative aside from the pertinent positives noted in the HPI and PE. IH Testing: The following tests were performed PCR Strep Test PCR Flu Test PCR COVID Test SEE TEST(S) ORDERS FOR RESULTS Physical Exam General Examination: alert, oriented, normal affect, well-appearing, in no acute distress, well developed, well nourished. Head: normocephalic, atraumatic Eyes: sclera non-icteric Ears: auditory canal clear, tympanic membrane intact, clear Nose: Slight congestion noted Oral Cavity: no lesions, mucosa moist Throat: symmetrical rise of soft palate and uvula, + mild erythema no exudate Lymph Nodes: no cervical adenopathy Heart: regular rate and rhythm, S1, S2 normal Lungs: clear to auscultation bilaterally. No wheezes, rales, rhonchi. Extremities: no edema, no cyanosis Psych: alert, oriented, cognitive function intact, cooperative with exam. Assessment/Plan 1. Upper respiratory tract infection, unspecified type (Primary) Discussed diagnosis and management, likely viral etiology and symptomatic treatment including OTC Tylenol, using humidifier, rest, and increased hydration. Patient advised to return for immediate evaluation if symptoms worse, change, or do not improve. Follow-up with PCP in 5-7 days or sooner if needed. All questions/concerns addressed. Patient voiced understanding and agreement with the plan. 2. Pharyngitis, unspecified etiology Covid, flu, strep all neg, reviewed with pt. - STATUS COVID-19/FLU - STREP DNA PROBE [facility] [id number] Evaluation note* Author Leanne Gamino [facility] Authored April 27, 2024 3:32 pm The above note written by Tal GARNICA acting as human recorder, note dictated by Dr. Micheal Bowling. [facility] Work Phone: 1(895) 589-438405-28-2024 Evaluation note* Author [facility] Authored March 02, 2024 3:51p m The above note written by Tal GARNICA acting as human recorder, note dictated by Dr. Micheal Bowling. [facility] Work Phone: 1(656) 238-902305-28-2024 Evaluation note* Author [facility] Authored March 02, 2024 3:51p m The above note written by Tal GARNICA acting as human recorder, note dictated by Dr. Micheal Bowling. Author [facility] Authored April 27, 2024 3:32 pm The above note written by Tal GARNICA acting as human recorder, note dictated by Dr. Micheal Bowling. [facility] Work Phone: 1(897) 805-477302-23-2024 Evaluation note* Author Micheal Bowling [facility] Authored November 28, 2023 4:49pm 4 to 6 weeks, the ER if conc erns,The above note written by Alejandra Peng LPN acting as human recorder, note dictated by Dr. Micheal Bowling [facility] Work Phone: 1(161) 580-498102-16-2024 NoteEchocardiology Procedure Exam Date/Time Accession # Ordering Echo Transthoracic 11/21/2023 13:48 EST [id number] Aly Castellanos MD CPT code 54934 94201 Reason for Exam (Echo Transthoracic Complete) R07.9;Chest pain Report [address] [address] Adult Echocardiogram Report Name: BRANDON LONG Study Date: 11/21/2023 12:56 PM BP: 145/91 mmHg Patient Location: [facility] HR: 83 : 1975 Gender: Female Height: 58 in Age: 47 yrs Ethnicity: [facility] Weight: 152 lb Reason For Study: Chest pain BSA: 1.6 m2 History: HTN Ordering Physician: Jasmin^Aly^DDione Referring Physician: Aly Castellanos Performed By: Kathi [...] Brown NEGRO MD Transcribed by: APRYL Technologist: [facility]02-16-2024 Evaluation + Plan note Future Scheduled Tests Radiology* EC Stress Echo Complete, Transthoracic 11/21/23 [facility]01-04-2024 Evaluation note* Encounter Date Diagnosis Assessment Notes Treatment Notes Treatment Clinical Notes Oct, Chest pain, unspecified type (ICD-10 - R07.9) Patient is scheduled in a few weeks to have a consult with the circuit manager Dr. Garcia in [place]. She is to get clearance to take [...] exercise regimen; we will continue to monitor. [facility] 01-04-2024 Evaluation note* Encounter Date Diagnosis [...] Oct, Other obesity (ICD-1 0 - E66.8) [facility] 12-01-2023 Evaluation note* Encounter Date Diagnosis Assessment Notes Treatment Notes Treatment Clinical Notes Sep, Chest pain (ICD-10 - R07.9) ER report reviewed with the patient. Chest XR was normal. The patient reports last stress test she had was about ten years ago. I do recommend the patient have a recheck stress test, even better yet have a consult with a circuit manager first. Patient is agreeable and did request [...] - E87.6) We will continue to montior. [facility] 10-19-2023 Evaluation note* Encounter Date Diagnosis [...] discussed, this was provided for her today. [facility] 10-04-2023 Evaluation note* Encounter Date Diagnosis Assessment Notes Treatment Notes Treatment Clinical Notes Jul, Hypertension (ICD-10 - I10) Jul, GERD (gastroesophageal reflux disease) (ICD-10 - K21.9) [facility] 10-02-2023 Evaluation note* Encounter Date Diagnosis Assessment Notes Treatment Notes Treatment Clinical Notes Jul, Hypertension (ICD-10 - I10) [facility] 10-01-2023 History general Narrative - Reported* Type Description Date Medical History 2006 pelvic exam done Medical History no mammogram Medical History no colonoscopy Medical History no stress test Medical History miscarriage july & august 07 009 Medical [place] [facility] [place]; [place] [facility] [place]; [place] [facility] [place] 08/06/12 Blood work C BC, [...] perinea l area 09/13/2022 Hospitalization History Childbirth [facility] 10-01-2023 History general Narrative - Reported* Type Description Date Medical History 2006 pelvic exam done Medical History no mammogram Medical History no colonoscopy Medical History no stress test Medical History miscarriage julyaugust 07 009 Medical History [place] [facility] [place]; [place] [facility] [place]; 07[place]22[place] [facility] [place] History 08/06/12 Blood work C BC, CMP, LIpid, HGA1C (5.1) T4, TSH, Medical History 04/2015 Mammogram Medical History hysterectomy 12/17/15 Medical History 04/13/2018 Stress test Medical History 06/2020 EGD and Colonoscopy - Dr Arriola Medical History 03/19/2022 Covid + Medical History 08/2023 EKG at [facility] Surgical History right foot toe surgery - toe [place] Surgical History bladder sling Surgical History gallbladder removed by Dr. Iliana espinosa 07/15/14 Surgical History hysterectomy ( still has ovarie s) - Dr. 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 Jun, Hypertension (ICD-10 - I10) Blood pressure [...] will look into a therapist/counse david at [facility]. Jun, Hyperglycemia (ICD-1 0 - R73.9) Blood work ordered , pt encourged to have this collected. Jun, Hyperlipidemia (ICD-10 - E78.5) Blood work ordered Jun, Anxiety and depression (ICD-10 - F41.9) Pt is to continue with the above medication and we will continue to monitor. [facility] 09-07-2023 Evaluation note* Encounter Date Diagnosis Assessment Notes Treatment Notes Treatment Clinical Notes Jun, Body mass index [BMI] 30.0-30.9, adult (ICD-10 - Z68.30) [facility] 05-08-2023 Evaluation note* Encounter Date Diagnosis Assessment Notes Treatment Notes Treatment Clinical Notes February, Hypertension (ICD-10 - I10) [facility] 05-05-2023 Evaluation note* Encounter Date Diagnosis [...] to continue with the above medication regimen. [facility] 05-02-2023 Hospital Discharge instructions Patient Education [...] if you start to feel better. Take gbbn-soa-cwodlet and prescription medicines only as told by [...] provider. Document Revised: 05/29/2021 Document Reviewed: 05/29/2021 [employer] Patient Education 2022 [employer]. Follow Up Care 02/04/2023 18:51:23 With:MICHEAL BOWLING Address: [address] [place] [address] Business (1) When:02/07/2023 20:18:24 Comments:Take the antibiotics twice a day as prescribed till you have completed the course you can use the Bentyl, Zofran every 6-8 hours as needed for nausea and abdominal pain. Please follow-up with your primary care doctor in the next 2 to 3 days. Please return to the ED for any new or worsening symptoms. [facility]05-02-2023 Evaluation + Plan noteExtracted from: Title:ED [...] Panel Lipase Level UA With Cult Reflex [facility]04-14-2023 Evaluation note* Encounter Date Diagnosis Assessment [...] water intake. We will continue to monitor. [facility] 03-28-2023 Evaluation note* Encounter Date Diagnosis Assessment Notes Treatment Notes Treatment Clinical Notes Dec, BMI 32.0-32.9,adult (ICD-10 - Z68.32) Dec, Prediabetes (ICD-10 - R73.03) [facility] 03-24-2023 Evaluation note* Encounter Date Diagnosis [...] further evaluate. Patient is agreeable. Order provided. [facility] 03-13-2023 Evaluation note* Encounter Date Diagnosis [...] COVID POSITIVE education handout discharge instructions. given. [facility] 03-10-2023 Evaluation note* Encounter Date Diagnosis [...] after use. We will continue to monitor. [facility] 01-11-2023 Evaluation note* Encounter Date Diagnosis Assessment Notes Treatment Notes Treatment Clinical Notes Oct, Recurrent cough (ICD-10 - R05.8) [facility] 12-30-2022 Evaluation note* Encounter Date Diagnosis [...] is to check blood pressures at home. [facility] 12-14-2022 NoteEXAMINATION: XR ABD FLAT UP_PA [...] Electronically authenticated by: LUPE ONTIVEROS Date: 2022-09-18 09:27[facility]12-09-2022 Hospital Discharge instructions Additional Instructions DISCHARGE INSTRUCTIONS [...] 4 weeks. -The office phone number is [[phone]]. [ ][facility] Work Phone: [phone] Evaluation note* Encounter Date Diagnosis Assessment Notes [...] home and continue taking her medications regularly. [facility] 10-01-2022 History general Narrative - Reported* Type Description Date Medical History 2006 pelvic exam done Medical History no mammogram Medical History no colonoscopy Medical History no stress test Medical History miscarriage july & august 07 009 Medical History [place] [facility] [place]; [place] [facility] [place]; [place] [facility] [place] History 08/06/12 Blood work C BC, [...] - Dr. Aj 01/04/16 Hospitalization History Childbirth [facility] Other 10-01-2022 History general Narrative - Reported* Type Description Date Medical History 2006 pelvic exam done Medical History no mammogram Medical History no colonoscopy Medical History no stress test Medical History miscarriage julyaugust 07 009 Medical History [place]bar [place] 03[place]29[place] [facility] [place]; [place] [facility] [place] Gall[place]; 07[place]22[place] [facility] [place] History 08/06/12 Blood work C BC, [...] perinea l area 09/13/2022 Hospitalization History Childbirth [facility] 09-22-2022 Evaluation note* Encounter Date Diagnosis Assessment Notes Treatment Notes Treatment Clinical Notes Jun, Hypertension (ICD-10 - I10) [facility] 08-18-2022 Evaluation note* Encounter Date Diagnosis [...] - M99.02) OMT provided in the office. [facility] 08-09-2022 Evaluation note* Encounter Date Diagnosis Assessment Notes Treatment Notes Treatment Clinical Notes May, Polymyalgia (ICD-10 - M35.3) Patient was recently in the [facility] ER, she reports she woke up in [...] is to continue on the above medications. [facility] 08-01-2022 Evaluation note* Encounter Date Diagnosis Assessment Notes Treatment Notes Treatment Clinical Notes May, Persistent cough (ICD-10 - R05.3) Patient has a chronic residual cough s/p covid from March. She has been to see pulmonology but did not see physician. Did see VISITOR SERVICES REPRESENTATIVE in office. . The Breztri and nebulizer [...] evaluated by pulmonary office and did see VISITOR SERVICES REPRESENTATIVE, not the physician. [facility] 07-11-2022 Evaluation note* Encounter Date Diagnosis Assessment Notes Treatment Notes Treatment Clinical Notes Apr, Shortness of breath (ICD-10 - R06.02) Apr, History of COVID-19 (ICD-10 - Z86.16) [facility] 05-05-2022 Evaluation note* Encounter Date Diagnosis Assessment Notes Treatment Notes Treatment Clinical Notes February, Hypertension (ICD-10 - I10) [facility] 05-03-2022 Evaluation note* Encounter Date Diagnosis [...] is to continue to follow with Dr. Clark as scheduled. [facility] 04-26-2022 Evaluation note* Encounter Date Diagnosis Assessment Notes Treatment Notes Treatment Clinical Notes Jan, Hypertension (ICD-10 - I10) [facility] 03-01-2022 Evaluation note* Encounter Date Diagnosis [...] above medication. Kenalog administered in office today. [facility] 02-02-2022 Evaluation note* Encounter Date Diagnosis [...] dysfunction of sacral region (ICD-10 - M99.04) [facility] Other [id number] Evaluation note* Encounter Date Diagnosis Assessment Notes [...] in agreement. We will continue to monitor. [facility] 11-01-2009 History general Narrative - Reported* Type Description Date Medical History 2007 pelvic exam done Medical History no mammogram Medical History no colonoscopy Medical History no stress test Medical History miscarriage july & august 2 009 Medical History [place] [facility] [place]; [place] [facility] [place] [facility] [place] 08/06/12 Blood work C BC, [...] - Dr. Aj 01/04/16 Hospitalization History Childbirth [facility] Other 11-01-2009 History general Narrative - Reported* Type Description Date Medical History 2007 pelvic exam done Medical History no mammogram Medical History no colonoscopy Medical History no stress test Medical History miscarriage july & august 07 009 Medical History [place] [facility] [place]; [place] [facility] [place] [facility] [place] 08/06/12 Blood work C BC, [...] - Dr. Aj 01/04/16 Hospitalization History Childbirth [facility] Other 11-01-2009 History general Narrative - Reported* Type Description Date Medical History 2007 pelvic exam done Medical History no mammogram Medical History no colonoscopy Medical History no stress test Medical History miscarriage july & august 07 009 Medical History [place] [facility] [place]; [place] [facility] [place]; [place] [facility] [place] 08/06/12 Blood work C BC, [...] perinea l area 09/13/2022 Hospitalization History Childbirth [facility] Other Evaluation + Plan note Future Appointments Appointment Date:12/26/2023 02:45:00 PM Scheduled Provider:Aly Castellanos MD Location:[facility] Appointment Type:Cardiology Follow Up (FT) Future Scheduled Tests Radiology* EC Stress Echo Complete w/ Contrast 10/30/23 * Echo Tran[facility]horacic [facility]ments Appointment Date:12/16/2023 01:00:00 PM Scheduled Provider: Location:[facility] Appointment Type:CV Echo Stress (FT) Appointment Date:12/26/2023 02:45:00 PM Scheduled Provider:Aly Catsellanos MD Location:[facility] Appointment Type:Cardiology Follow Up (FT) Future Scheduled Tests Radiology* EC Stress Echo Complete, Transthoracic 11/21/23 * EC Stress Echo Complete w/ Contrast [facility] Appointments Appointment Date:12/26/2023 02:45:00 PM Scheduled Provider:Aly Castellanos MD Location:[facility] Appointment Type:Cardiology Follow Up (FT) Future Scheduled Tests Radiology* EC Stress Echo Complete, Transthoracic 11/21/23 [facility] InformationNort Trufa Other Evaluation noteNo assessment information available [facility] Work Phone: Evaluation note* Author Alejandra Peng [facility] Authored November 28, 2023 11:49am Sooner if needed, the ER if concerns,The above note written by Alejandra Peng LPN acting as human recorder, note dictated by Dr. Micheal Bowling [facility] Work Phone: Evaluation note* Author Leanne Gamino [facility] Authored March 02, 2024 3:51p m The above note written by Tal GARNICA acting as human recorder, note dictated by Dr. Micheal Bowling. [facility] Work Phone: evaluation note* Diagnosis Upper respiratory tract infection, unspecified type- Primary Pharyngitis, unspecified etiology documented in this encounter [facility] Author Debbie Mace [facility] Authored August 26, 2024 3:12pm The above note written by NAHUN Cherry acting as human recorder, note dictated by Dr. Micheal Bowling. [facility] Work Phone: Evaluation note* Diagnosis Encounter for gynecological examination without abnormal finding Encounter for Papanicolaou smear of vagina Breast cancer screening by mammogram documented in this encounter [facility] Narrative No data available for this section [facility] No data available for this section [facility] No data available for this section [facility] Purpose Family History No Family [...] Unknown mother Type 2 diabetes mellitus Unknown Relationship Condition Age at Onset Recorded Date/T can mother Cerebrovascular accident (CVA) Unknown Diabetes mellitus Unknown Type 2 diabetes mellitus Unknown father Heart disease Unknown Hypertension Unknown grandparent Hypertension Unknown grandparent Myocardial infarction Unknown Advance Directives No Advanced Directives Records [...] (E66.9) Diagnosis 4 Hypertension (I10) Referral Organization [facility] [place] Referring Provider First Name Micheal Referring Provider Last Name Dash Referring Provider Specialty Family Prac amanda Referred Organization [facility] Referred Provider Aly Castellanos Referred Address [address] [place] [id number] Referred Provider Specialty Cardiology Referral Priority Routine General Notes Andria Reilly 11:25:03 AM >received today, holding referral for note to be locked Andria Reilly 09/08/2023 12:53:36 PM >note is not locked, still holding referral Andria Reilly 09/09/2023 11:43:04 AM >not locked yet Reason CANCELLED consult and treat Diagnosis 1 Recurrent cough (R05 .8) Referral Organization [facility] [place] Referring Provider First Name Micheal Referring Provider Last Name Dash Referring Provider Specialty Family Prac amanda Referred Organization [facility] Pulmonary Dise ase Referred Provider Macey Floyd Referred Address [address],[address] Referred Provider Specialty Nurse Adrien herrera Referral Priority Routine General Notes Fore, Kiersten M 023 10:36:46 AM >Received today and all test have been completed at [facility]. Sent P2P Kiersten Euceda 10/17/2022 01:25:39 PM >Patient has been scheduled Kiersten Euceda 11/07/2022 07:45:54 AM >Patient cancelled appt. Stating she will call back to reschedule. Will give her a week and if she is not rescheduled then I will let Dr. Bowling know and give her another week to reschedule Kiersten Euceda 11/07/2022 07:49:27 AM >Per incoming referral. Patient is seeing Dr. Lieberman at [facility] and did not want to reschedule. Telephone encounter was sent Reason consult and treat; S OB, Hx of COVID PFT and Chest Xray ordered Diagnosis 1 Shortness of breath (R06.02) Diagnosis 2 History of COVID-19 (Z86.16) Referral Organization [facility] [place] Referring Provider First Name Micheal Referring Provider Last Name Dash Referring Provider Specialty Family Prac amanda Referred Organization [facility] Referred Provider Lavinia Lieberman Referred Address ,[place], [place],[address] Referred Provider Specialty Pulmonary Adele fabian Referral Priority Routine Chief Complaint and Reason for Visit Chief Complaint M35.3 polymyalgia Chief Complaint Sebaceous Cyst Chief Complaint E78.5 R45.86 Chief Complaint Er Recheck Matt/ Chest Pain M25.561 M25.562 Oct Appt F/U HGB A1C Reason for Visit Chest pain Hyperglycemia Hypertension IBS (irritable bowel syndrome) Obesity (BMI 30-39.9) Chief Complaint F/U HGB A1C Amb Documentation Amb Documentation r/s January Apt Reason for Visit Chest pain Hyperglycemia Hypertension [...] hip Obesity Dysuria BMI 31.0-31.9,adult Chief Complaint r/s Bertha Apt adipex Amb Documentation r63.5 r53.83 e03.9 persisent cough Reason for Visit BMI 32.0-32.9,adult Obesity Trochanteric bursitis of right hip Obesity Dysuria BMI 31.0-31.9,adult Shortness of breath Productive cough Chief Complaint r63.5 r53.83 e03.9 persisent cough Reason for Visit Shortness of breath Productive cough Sore throat Chief Complaint Admit Date omt- neck August 26, 2024 1:29pm Reason for Visit Admit Date Seasonal allergic reaction June 10:24am Sore throat June 22, 2024 10:24am Strep pharyngitis June 22, 2024 10:24am Cervical spine pain August 26, 2024 1:29pm Pain in right lumbar region of back 2023 1:29pm Somatic dysfunction of lumbar region Aug 1:29pm Somatic dysfunction of rib cage region N 2023 1:29pm Somatic dysfunction of sacral region Aug 1:29pm Somatic dysfunction of spine, cervical N 2023 1:29pm Somatic dysfunction of thoracic region N 2023 1:29pm Trochanteric bursitis of right hip 2023 1:29pm Chief Complaint Admit Date omt- neck August 26, 2024 1:29pm r/s 5 week f/u October 21, 2024 1 :26pm Reason for Visit Admit Date Cervical spine pain August 26, 2024 1:29pm Pain in right lumbar region of back 2023 1:29pm Somatic dysfunction of lumbar region Aug 1:29pm Somatic dysfunction of rib cage region N 2023 1:29pm Somatic dysfunction of sacral region Aug 1:29pm Somatic dysfunction of spine, cervical N 2023 1:29pm Somatic dysfunction of thoracic region N ov2023 1:29pm Trochanteric bursitis of right hip 2023 1:29pm Anxiety and depression October 21 1:26pm Lumbar back pain October 21, 2024 1 :26pm Somatic dysfunction of lumbar region Amadeo uary 2024 1:26pm Somatic dysfunction of rib cage region J anuary 2024 1:26pm Somatic dysfunction of sacral region Oct 1:26pm Somatic dysfunction of spine, cervical J anuary 2024 1:26pm Somatic dysfunction of thoracic region J anuary 2024 1:26pm Trochanteric bursitis of right hip 2024 1:26pm Nausea October 21, 2024 1 :26pm Chief Complaint Admit Date omt- neck August 26, 2024 1:29pm r/s 5 week f/u October 21, 2024 1 :26pm e78.5 e03.9 r73.9 October 28, 2024 7 :23am Reason for Visit Admit Date Cervical spine pain August 26, 2024 1:29pm Pain in right lumbar region of back Nove mb2023 1:29pm Somatic dysfunction of lumbar region Aug 1:29pm Somatic dysfunction of rib cage region N ovember 2023 1:29pm Somatic dysfunction of sacral region Aug 1:29pm Somatic dysfunction of spine, cervical N ov2023 1:29pm Somatic dysfunction of thoracic region N ovember 2023 1:29pm Trochanteric bursitis of right hip Novem 2023 1:29pm Anxiety and depression October 21 1:26pm Lumbar back pain October 21, 2024 1 :26pm Somatic dysfunction of lumbar region Oct 1:26pm Somatic dysfunction of rib cage region J anuary 2024 1:26pm Somatic dysfunction of sacral region Oct 1:26pm Somatic dysfunction of spine, cervical J anuary 2024 1:26pm Somatic dysfunction of thoracic region J anuary 2024 1:26pm Trochanteric bursitis of right hip 2024 1:26pm Elevated C-reactive protein October 1:26pm Nausea October 21, 2024 1 :26pm Additional Source Comments INFORMATION SOURCE (unrecogn ized section and content) DATE CREATED AUTHOR 03/31/2018 [facility] DATE CREATED AUTHOR AUTHOR'S ORGANIZ ATION 04/15/2018 [facility] DATE CREATED AUTHOR AUTHOR'S ORGANIZ ATION 04/15/2018 [facility] Healthcare DATE CREATED AUTHOR AUTHOR'S ORGANIZ ATION 11/02/2022 [facility] dical Specialist DATE CREATED AUTHOR AUTHOR'S ORGANIZ ATION 01/29/2023 [facility] DATE CREATED AUTHOR AUTHOR'S ORGANIZ ATION 01/20/2024 [facility] DATE CREATED AUTHOR AUTHOR'S ORGANIZ ATION 07/28/2024 [facility] dical Specialists EPIC DATE CREATED AUTHOR AUTHOR'S ORGANIZ ATION 10/30/2024 [facility] ys[facility] REASON FOR VISIT (unrecogniz ed section and content) Reason Comments Gynecologic Exam LMP: LAVH BS 2015HRT : NoneLast pap 08-13-23 neg.Last mammogram 01-12-24 [facility]. Denies breast, urinary, or bowel concerns. Care Teams (unrecognized sec tion and content) Team Status: Active Member Role Status Dates Micheal Bowling DO Primary Care Provider Active Team Status: Inactive Member Role Status Dates Micheal Bowling DO Primary Care Provide r, Attending Provider Active Start: January 28, 2024 End: January 28, 2024 Team Status: Inactive Member Role Status Dates Micheal Bowling DO Primary Care Provide r, Attending Provider Active Start: March 02, 2024 End: March 02, 2024 Team Status: Active Member Role Status Dates Micheal Bowling DO Primary Care Provider Active Sta rt: March 22, 2024 NAHUN Lennon Attending Provider Active Start: March 22, 2024 Team Status: Inactive Member Role Status Dates Micheal Bowling DO Primary Care Provide r, Attending Provider Active Start: April 07, 2024 End: April 07, 2024 Team Status: Inactive Member Role Status Dates Micheal Bowling DO Primary Care Provide r, Attending Provider Active Start: April 27, 2024 End: April 27, 2024 Team Status: Active Member Role Status Dates Micheal Bowling DO Primary Care Provider Active Sta rt: December 08, 2023 NAHUN Lennon Attending Provider Active Start: December 08, 2023 Team Status: Active Member Role Status Dates Micheal Bowling DO Primary Care Provider Active Sta rt: January 20, 2024 NAHUN Lennon Attending Provider Active Start: January 20, 2024 Team Status: Inactive Member Role Status Dates Micheal Bowling DO Primary Care Provider, Attending Provi shona Active Team Status: Inactive Member Role Status Dates Micheal Bowling DO Primary Care Provider Active Maycol Clark DO Attending Provider Active Team Status: Inactive Member Role Status Dates Micheal Bowling DO Attending Provider Active Start: September 05, 2023 End: September 05, 2023 Team Status: Inactive Member Role Status Dates Micheal Bowling DO Primary Care Provider Active Sta rt: September 05, 2023 End: September 05, 2023 Lamont Long DO Attending Provider Active Sta rt: September 05, 2023 End: September 05, 2023 Team Status: Inactive Member Role Status Dates Micheal Bowling DO Attending Provider Active Start: October 09, 2023 End: October 09, 2023 Team Status: Inactive Member Role Status Dates Micheal Bowling DO Primary Care Provide r, Attending Provider Active Start: November 28, 2023 End: November 28, 2023 Team Status: Inactive Member Role Status Dates Micheal Bowling DO Primary Care Provide r, Attending Provider Active Start: June 22, 2024 End: June 22, 2024 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 Relationship Specialty Start Date End Date Micheal Bowling MD [address] [place] [id number] PCP - General 08/13/23 Team Status: Inactive Member Role Status Dates Micheal Bowling DO Primary Care Provide r, Attending Provider Active Start: August 26, 2024 End: August 26, 2024 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 [employer] [facility]. provides no warranty or guarantee of the accuracy or completeness of information in this document.
[2024-11-09 14:48] LABS: Influenza Virus A Antigen Negative; Influenza Virus B Antigen Negative; Internal Control Within Normal Limits; SARS-CoV-2 Ag NEGATIVE (NEGATIVE)
--- NOTE | 2024-11-09 15:10 | CT_ITS ---
[address] [address] Patient Name: BRANDON LONG MRN: [id number] date: 1975 Sex: F Assigned Patient Location: ER Current Patient Location: Accession/Order Number: [id number] Exam Date: 11/09/2024 15:31 Report Date: 11/09/2024 15:57 At the request of: CHI DUNBAR Procedure: CT abdomen pelvis wo con EXAMINATION: CT abdomen pelvis wo con HISTORY: pain, constipation , nausea, chills, vomiting COMPARISON: No relevant comparison available. TECHNIQUE: Axial, Coronal, and Sagittal images were obtained without and/or with IV contrast as indicated by examination type. Dose reduction techniques were achieved by using automated exposure control and/or adjustment of mA and/or kV according to patient size and/or use of iterative reconstruction technique. FINDINGS: LUNG BASES: No visible pulmonary or pleural disease. LIVER: No enlargement, atrophy, suspicious density, or significant focal lesion. BILIARY: Cholecystectomy. PANCREAS: No lesion, fluid collection, or abnormal duct dilatation. SPLEEN: No enlargement or focal lesion. ADRENALS: No mass or enlargement. KIDNEYS: No mass, obstruction, or calcification. BOWEL/MESENTERY: No visible mass, obstruction, or bowel wall thickening. AORTA/VASCULAR: No aneurysm or dissection. RETROPERITONEUM: No mass or adenopathy. LYMPH NODES: No adenopathy. URINARY BLADDER: No visible focal wall thickening, lesion, or calculus. PELVIC ORGANS: Hysterectomy. ABDOMINAL WALL: No mass or hernia. BONES: No bony lesion or fracture. OTHER: Negative. CT/CT abdomen pelvis wo con IMPRESSION: 1. No acute or suspicious findings to account for patient's symptoms. 2. Small to moderate stool burden. No obstruction, acute inflammatory changes, or findings to suggest constipation. Electronically authenticated by: LUPE ONTIVEROS Date: 11/09/2024 15:57
--- NOTE | 2024-11-09 15:11 | ED.NAVMDI1 ---
HPI - Nausea/Vomiting/Diarrhea General Chief complaint: Nausea/Vomiting/Diarrhea Stated complaint: VOMITTING WEAKNESS Time Seen by Provider: 11/09/24 15:06 Source: patient Mode of arrival: Wheelchair History of Present Illness HPI Narrative: 48 year old female presents to the ED for N/V, cough, congestion, fatigue, body aches. Reports constipation. Multiple members of the household are ill. Denies SOB. Related Data Home Medications ?Medication ?Instructions ?Recorded ?Confirmed olmesartan 40 mg tablet 40 mg PO DAILY 07/11/23 08/28/23 omeprazole 40 mg capsule,delayed 40 mg PO DAILY 07/11/23 08/28/23 release ropinirole 1 mg tablet 1 mg PO BEDTIME 07/11/23 08/28/23 spironolactone 25 mg tablet 25 mg PO DAILY 07/11/23 08/28/23 amlodipine 5 mg tablet 5 mg PO DAILY 08/28/23 08/28/23 Allergies Allergy/AdvReac Type Severity Reaction Status Date / Time Penicillins Allergy Verified 07/11/23 20:01 sulfamethoxazole (From Allergy Verified 07/11/23 20:01 Bactrim) trimethoprim (From Bactrim) Allergy Verified 07/11/23 20:01 vancomycin Allergy Verified 07/11/23 20:01 Review of Systems ROS Constitutional Reports: fever, chills and fatigue Ears, nose, mouth, and throat Denies: throat pain or neck pain Cardiovascular Denies: chest pain Respiratory Reports: cough; Denies: shortness of breath Gastrointestinal Reports: abdominal pain, nausea and vomiting; Denies: diarrhea Genitourinary Denies: painful urination or urinary frequency Musculoskeletal Denies: back pain or neck pain Integumentary/Breast Denies: rash Neurological Denies: headache, numbness in extremities or weakness in extremities PFSH PFSH Social History Smoking status: Former smoker Little interest or pleasure in doing things: not at all Feeling down, depressed, or hopeless: not at all Exam Constitutional Vital Signs, click to edit/add: Last Vital Signs Temp 99.9 F 11/09/24 14:16 Pulse 113 H 11/09/24 14:16 Resp 18 11/09/24 14:16 BP 134/95 H 11/09/24 14:16 Pulse Ox 96 11/09/24 14:16 O2 Del Method Room Air 11/09/24 14:16 Common normals: no apparent distress and oriented x3 General appearance: cooperative HENMT Common normals: moist oral mucous membranes and oropharynx normal External ear: external ears normal Throat: posterior oropharynx normal and uvula midline Eye Common normals: conjunctivae normal and no scleral icterus Neck & C-Spine Common normals: supple Chest Chest: symmetrical chest wall rise Respiratory Common normals: normal respiratory effort Effort & inspection: able to speak in complete sentences and symmetric chest movement Cardio Common normals: regular rhythm Rate: tachycardic GI Common normals: soft to palpation Palpation: tender (Generalized) Neuro Common normals: oriented x3 and moves all extremities Sensorium/orientation: awake and alert Speech: speech normal Course Vital Signs Vital signs: Vital Signs Temperature 99.9 F 11/09/24 14:16 Pulse Rate 113 H 11/09/24 14:16 Respiratory Rate 18 11/09/24 14:16 Blood Pressure 134/95 H 11/09/24 14:16 Pulse Oximetry 96 11/09/24 14:16 Oxygen Delivery Method Room Air 11/09/24 14:16 Temperature 99.9 F 11/09/24 14:16 Pulse Rate 113 H 11/09/24 14:16 Respiratory Rate 18 11/09/24 14:16 Blood Pressure 134/95 H 11/09/24 14:16 Pulse Oximetry 96 11/09/24 14:16 Oxygen Delivery Method Room Air 11/09/24 14:16 MDM - Nausea/Vomiting/Diarrhea MDM Narrative Medical decision making narrative: WBC count was 11.5, creatinine 1.07. CT scan showed small to moderate stool burden. Pt reported hx chronic constipation. Findings were discussed. She was given Reglan and Bendaryl with improvement. She has Zofran at home. Follow up with pcp for a recheck, further evaluation and treatment. Medical Records Attestation: I reviewed the patient's medical records. Lab Data Attestation: I reviewed the patient's lab results. Labs: Lab Results 11/09/24 11/09/24 Range/Units 14:22 15:20 WBC 11.5 H (4.0-11.0) 10^3/uL RBC 4.99 (4.20-5.40) 10^6/uL Hgb 14.4 (12.0-16.0) g/dL Hct 42.2 (36.0-48.0) % MCV 84.6 (81.0-99.0) fL MCH 28.9 (26.7-34.0) pg MCHC 34.1 (29.9-35.2) g/dL RDW 11.9 (11.0-15.0) % Plt Count 251 (150-450) 10^3/uL MPV 10.0 (9.5-13.5) fL Seg Neuts % (Manual) 95.0 H (43.0-75.0) Lymphocytes % (Manual) 2.0 L (20.5-60.0) % Monocytes % (Manual) 3.0 (1.7-12.0) % Eosinophils % (Manual) 0.0 L (0.9-7.0) % Basophils % (Manual) 0.0 L (0.2-2.0) % Neutrophils # (Manual) 10.92 H (1.4-6.5) 10^3/uL Lymphocytes # (Manual) 0.23 L (1.20-3.80) 10^3/uL Monocytes # (Manual) 0.34 (0.30-0.80) 10^3/uL Eosinophils # (Manual) 0.00 (0.00-0.70) 10^3/uL Basophils # (Manual) 0.00 (0.00-0.10) 10^3/uL Sodium 142 (136-145) mmol/L Potassium 3.7 (3.5-5.1) mmol/L Chloride 102 (98-107) mmol/L Carbon Dioxide 30.5 (21.0-32.0) mmol/L Anion Gap 13.2 BUN 11.0 (7.0-18.0) mg/dL Creatinine 1.07 H (0.55-1.02) mg/dL Est GFR ( Amer) >60 (>=60 mL/min/1.73m^2) Est GFR (Non-Af Amer) 55 L (>=60 mL/min/1.73m^2) BUN/Creatinine Ratio 10.3 Glucose 129 H (74-106) mg/dL Calcium 9.1 (8.5-10.1) mg/dL Total Bilirubin 0.8 (0.2-1.0) mg/dL AST 13 L (15-37) U/L ALT 26 (14-59) U/L Alkaline Phosphatase 70 (46-116) U/L Total Protein 7.7 (6.4-8.2) g/dL Albumin 3.8 (3.4-5.0) g/dL Globulin 3.9 g/dL Albumin/Globulin Ratio 1.0 Influenza Type A Ag Negative Influenza Type B Ag Negative SARS-CoV-2 Ag (CV2AG) Negative (NEGATIVE) Imaging Data CT scan - abdomen: Attestation: I have reviewed the pertinent imaging results. Radiologist's impression: ITS Impressions Abdomen/Pelvis CT 11/09/24 15:10 IMPRESSION: 1. No acute or suspicious findings to account for patient's symptoms. 2. Small to moderate stool burden. No obstruction, acute inflammatory changes, or findings to suggest constipation. Electronically authenticated by: LUPE ONTIVEROS Date: 11/09/2024 15:57 Discharge Plan Discharge Chief Complaint: Nausea/Vomiting/Diarrhea Clinical Impression: Viral illness Patient Disposition: Home, Self-Care Time of Disposition Decision: 16:07 Condition: Good Mode of Transportation: Private Vehicle Prescriptions / Home Meds: No Action ropinirole 1 mg tablet 1 mg PO BEDTIME omeprazole 40 mg capsule,delayed release(DR/EC) 40 mg PO DAILY spironolactone 25 mg tablet 25 mg PO DAILY olmesartan 40 mg tablet 40 mg PO DAILY amlodipine 5 mg tablet 5 mg PO DAILY Print Language: Faroese Instructions: Acute Nausea and Vomiting (ED), Viral Syndrome (ED) Referrals: Physician,Non-Staff, MD [Primary Care Provider] - 1 week
[2024-11-09 15:29] LABS: Hematocrit 42.2 % (36.0-48.0); Hemoglobin 14.4 g/dL (12.0-16.0); Mean Corpuscular HGB Conc 34.1 g/dL (29.9-35.2); Mean Corpuscular Hemoglobin 28.9 pg (26.7-34.0); Mean Corpuscular Volume 84.6 fL (81.0-99.0); Platelet Count 251 10^3/uL (150-450); Red Blood Count 4.99 10^6/uL (4.20-5.40); Red Cell Distribution Width 11.9 % (11.0-15.0); White Blood Count 11.5 10^3/uL (4.0-11.0)
[2024-11-09] MEDS: 0.9 % SODIUM CHLORIDE 1,000 ML 1000 ML IV (15:39)
[2024-11-09] MEDS: DIPHENHYDRAMINE HCL 50 MG/ML VIAL 25 MG IV (15:41)
[2024-11-09] MEDS: METOCLOPRAMIDE HCL 10 MG/2 ML VIAL IVP (15:42)
[2024-11-09 15:46] LABS: Alanine Aminotransferase 26 U/L (14-59); Albumin Level 3.8 g/dL (3.4-5.0); Alkaline Phosphatase 70 U/L (46-116); Anion Gap 13.2; Aspartate Amino Transferase 13 U/L (15-37); BUN Creatinine Ratio 10.3; Bilirubin Total 0.8 mg/dL (0.2-1.0); Calcium 9.1 mg/dL (8.5-10.1); Carbon Dioxide 30.5 mmol/L (21.0-32.0); Chloride 102 mmol/L (98-107); Estimated GFR (African America >60 (>=60 mL/min/1.73m^2); Estimated GFR (Non-African Ame 55 (>=60 mL/min/1.73m^2); Globulin 3.9 g/dL; Glucose 129 mg/dL (74-106); Potassium 3.7 mmol/L (3.5-5.1); Sodium 142 mmol/L (136-145); Total Protein 7.7 g/dL (6.4-8.2)
[2024-11-09 15:52] LABS: Lymphocytes Absolute Manual 0.23 10^3/uL (1.20-3.80); Monocytes Absolute Manual 0.34 10^3/uL (0.30-0.80); Segmented Neut Absolute Manual 10.92 10^3/uL (1.4-6.5)
== END 2024-11-09 17:02 | disposition home or self-care (01) ==
PROVIDERS: Nurse Practitioner Family; Emergency Provider Emergency Medicine
DX: B34.9 Viral infection, unspecified (principal); Z87.891 Personal history of nicotine dependence; Z90.49 Acquired absence of other specified parts of digestive tract; Z90.710 Acquired absence of both cervix and uterus; R50.9 Fever, unspecified
CPT/HCPCS: 36415; 74176; 80053; 85007; 85027; 87804; 87811; 96361; 96374; 96375; 99285; J1200; J2765

== ENCOUNTER 2025-01-11 16:31 | Emergency (ER) | payer OTHER, SELFPAY ==
[2025-01-11] VITALS (11 sets, daily range): BP systolic 111–133; BP diastolic 81–83; PULSE 90; TEMP 36.9; O2SAT 97–100; BMI 33.7
--- OUTSIDE RECORDS SUMMARY | 2025-01-11 16:40 | XMS_ITS | CCD ---
Author Organization [facility] Care Team Providers Care Supervisor Paper Coating Name Role Phone Steph Causey Unavailable Unavailable Family Physician Unavailable Unavailable Jessica vailable Family Physician Unavailable Unavailable Jessica vailable UNKNOWN, PROVIDER Unavailable Unavailable MICHEAL BOWLING Unavailable Unavailable Micheal Bowling Unavailable Dash, DO Burton Primary Care Provider Kunalix, DO Burton Attending Provider Guys, DO Burton Primary Care Provider [phone] DO Maycol Clark Attending Provider [phone] Macey Floyd Unavailable Macey Licona Unavailable DR [...] Consulting Unavailable MICHEAL BOWLING Primary Care Physician [phone] Guys, DO Burton Primary Care Provider Kuns, DO Burton Attending Provider Barbara Dasilva Unavailable Unavailable Dash, DO Burton Primary Care Provider DO Lamont Long Attending Provider [phone] DO Micheal Bowling Primary Care Provider DO Micheal Bowling Attending Provider LAMONT LONG Attending Unavailable LAMONT LONG Referring Unavailable PACO GROSS Attending Unavailable LAMONT LONG Referring Unavailable LAMONT LONG Attending Unavailable LAMONT LONG Attending Unavailable LAMONT LNOG Referring Unavailable MAYCOL CLARK Referring Unavailable WILLIAM LIEBERMAN Attending Unavailable LAMONT LONG Referring Unavailable MAYCOL CLARK Attending Unavailable LAN AVALOS Attending Unavailable Micheal Bowling MD Primary Care Provider Micheal Bowling DO Primary Care Provider Micheal Bowling DO Attending Provider Mciheal Bowling Admitting Unavailable Kunalix, Micheal Attending Unavailable Dash, Micheal Primary Care Unavailable Guys, Micheal Primary Care Unavailable Kuns, Micheal Admitting Unavailable Kuns, Micheal Attending Unavailable Kuns, Micheal Primary Care Unavailable Kuns, Micheal Admitting Unavailable Kuns, Micheal Attending Unavailable Micheal Bowling DO Primary Care Provider Micheal Bowling DO Attending Provider Rickie Bergeron Attending Unavailable Allergies Allergy Classification Reported Allergen(s) Allergy Type Date of Onset Reaction(s) Facility (20 sources) Acetaminophen / traMADol Drug Allergy [facility] Other (20 sources) Amoxicillin / Clavulanate Drug Allergy stomache upset [facility] Other (20 sources) Azithromycin Drug Allergy vomiting [facility] Other (20 sources) cefdinir Drug Allergy hives [facility] Other (20 sources) [facility] ([facility] sources) methylPREDNISolone Drug Allergy 024 GI intolerance [facility] (20 sources) Sulfamethoxazole / Trimethoprim; Translations: [sulfamethoxazole-tr imethoprim] Drug Allergy 023 stomach cramping, vomiting [facility] (20 sources) telithromycin Drug Allergy [employer] [facility] Other (20 sources) Adipex Propensity to adverse reactions GI upset, Rapid heart rate [facility] Other (20 sources) Vanco Propensity to adverse reactions [facility] Other (20 sources) Azithromycin; Translations: [azithromycin] Drug Allergy 020 Nausea, vomiting, Nausea, vomiting [facility] (20 sources) Sulfamethoxazole Drug Allergy 020 Nausea, Nausea, stomach cramping [facility] (20 sources) Trimethoprim Drug Allergy 020 Nausea, Nausea, stomach cramping [facility] (20 sources) Vancomycin; Translations: [vancomycin] Drug Allergy 016 Rash, hives, Rash, [facility] (20 sources) Acetaminophen / traMADol Drug Allergy [employer] [facility] Other (12 sources) Amoxicillin / Clavulanate Drug Allergy stomache upset [facility] Other (1 source) Azithromycin Drug Allergy [facility] (1 source) Penicillin Drug Allergy [facility] (2 sources) Sulfamethoxazole / Trimethoprim; Translations: [Bactrim] Drug Allergy [facility] (1 source) Sulfonamides (Antibiotic) Drug allergy (disorder) [facility] (6 sources) Amoxicillin Drug Allergy stomach upset [facility] (16 sources) cefdinir Drug Allergy Hives [facility] (16 sources) Clavulanate Drug Allergy GI intolerance [facility] (16 sources) cyclobenzaprine Drug Allergy [facility] (16 sources) Phentermine Drug Allergy Rapid heart rate [facility] (13 sources) telithromycin Drug Allergy 024 [facility] (16 sources) traMADol Drug Allergy 024 [facility] (15 sources) Betamethasone Drug Allergy 024 polyarthralgia [facility] (3 sources) Penicillins Drug Allergy 023 [facility] [...] once a week for 28 days Active [id number] actuat albuterol 0.09 mg/actuat metered dose [...] hours. Active take 2 puff(s) by mo ut every four hours as needed Ventolin HFA 108 (90 Base) MCG/ACT INHAL E 2 PUFFS BY MOUTH EVERY 4 HOURS NEEDED Inhalation Active albuterol 0.833 mg/ml / ipratropium bromide 0.167 mg/ml inhalation solution (1 source) Anticholinergic, beta2-Adrenergic Agonist Start: 01-02-2025 DuoNeb 2.5 mg-0.5 mg/3 mL Soln-Inh 3 mL, Inhalation, QID Wheezing, 30 EA, Refill(s) 0, [id number], 167, cm, 01/02/25 13:04:00 EDT, Height/Length Dosing, 75, kg, 01/02/25 13:04:00 EDT, Weight Dosing Start Date: 01/02/25 Status: Ordered Quantity: 30.0 Unit: EA Repeat number: 1 amLODIPine 5 mg oral tablet (20 sources) [...] Tablet Discontinued 2.5 MG PO Daily May 31, 2020 [...] February, Active azithromycin 250 mg oral tablet (20 sources) Macrolide Antimicrobial Start: 12-16-2024 Azithromycin (Zithromax Z-Noel) 250 mg tablet Active 0 PO .COMPLEX December 16, 2024 12:00am For 250 mg dose pack: take 500 mg today (day 1), then 250 mg for 4 days (days 2-5) PO Start: 04-22-2024 End: 09-08-2024 azithromycin (Zithromax) 250 MG tablet TAKE 2 TABLETS BY MOUTH TODAY, THEN TAKE 1 TABLET DAILY FOR 4 DAYS DIRECTED 04/22/2024 09/08/2024 Discontinued Start: 03-22-2024 End: 08-26-2024 Azithromycin (Zithromax Z-Pa k) 250 mg tablet Discontinued 0 PO .COMPLEX June 22, 2024 12:00am August 26, 2024 3:34pm For 250 mg dose pack: take 500 mg today (day 1), then 250 mg for 4 days (days 2-5) PO 120 actuat budesonide 0.16 mg/actuat / formoterol fumarate 0.0048 mg/actuat / glycopyrrolate 0.009 mg/actuat metered dose inhaler (8 sources) Corticosteroid, beta2-Adrenergic Agonist Start: 04-15-2022 take 2 puff(s) by inhalation twice daily Breztri Aerosphere 160-9-4.8 MCG/ACT 2 puffs Inhalation Twice a day Apr, Active End: 09-08-2024 Ewrookt-Qtrgvfwgkaf-Lrhnifcd ol (Breztri Aerosphere) 160-9-4.8 MCG/ACT aerosol Breztri [employer] 09/08/2024 Discontinued busPIRone hydrochloride 5 mg oral tablet (2 sources) Start: 12-16-2024 take 1 tablet by mouth twice daily Buspirone 5 mg tablet Active 5 MG PO Twice daily December 16, 2024 12:00am dicyclomine hydrochloride 10 mg oral capsule (4 [...] Active Start: 10-18-2021 take 1 capsule by [facility] every twelve hours Doxycycline Hyclate 100 MG 1 capsule Orally Twice a day for 10 day(s) Oct, Active DULoxetine 30 mg delayed release oral capsule (6 sources) Serotonin and Norepinephrine Reuptake Inhibitor Start: 10-21-2024 take 1 capsule by mouth once daily Duloxetine (Cymbalta) 30 mg capsule,delayed release(DR/EC) Active 30 MG PO Daily October 21, 2024 1:00am escitalopram 10 mg oral tablet (4 sources) [...] Sep, Active linaclotide 0.072 mg oral capsule (15 sources) Guanylate Cyclase-C Agonist Start: 08-26-2024 End: 12-16-2024 take 1 capsule by mouth once daily as needed Linaclotide (Linzess) 72 mcg capsule Active 72 MCG PO Daily as needed December 16, 2024 1:51pm Start: 01-17-2023 Linzess 72 MCG 1 capsule [...] for nausea and vomiting October 14, 2024 11:01am Start: 02-04-2023 take 1 tablet by jordin [...] 5 day(s) Oct, Active Patient Specific Meds (3 sources) Start: 12-16-2023 Patient Specific Meds See Instructions Start Date: 12/16/23 Status: Ordered Repeat number: 1 Start: 12-16-2023 Patient Specif ic Meds See Instructions Start Date: 12/16/23 Status: Ordered rOPINIRole 1 mg oral tablet (20 sources) Nonergot Dopamine Agonist Start: 11-27-2023 End: 12-16-2024 take 1 tablet by mouth once daily as needed Ropinirole 1 mg tablet Active 1 MG PO Daily as needed December 16, 2024 1:51pm Free[employer] tablet Orally Once a day; Note: [...] sources) Central alpha-2 Adrenergic Agonist Start: 11-27-2023 End: 12-16-2024 take 1 tablet by mouth once daily at bedtime as needed Tizanidine (Zanaflex) 4 mg tablet Active 4 MG PO Daily at bedtime as needed December 16, 2024 1:51pm [employer] tablet as needed Orally QHS; Note: Source Status: Taking; Refills: 0; Provider: Dash Abraham Start: 02-26-2012 take 1 tablet by jordin th once daily at bedtime as needed Zanaflex 4 MG 1 tablet as needed Orally QHS for 90 days February, Active Zofran ODT 4 mg Tab-Dis (6 sources) Start: 02-04-2023 take 1 tablet by mouth every eight hours Zofran ODT 4 mg Tab-Dis 4 mg = 1 tab(s), Oral, q8hr, # 12 tab(s), Refills(s) 0 Start Date: 02/04/23 Status: Ordered Quantity: 12.0 Unit: tab(s) Repeat number: 1 Start: 02-04-2023 take 1 tablet by jordin th every eight hours Zofran ODT 4 mg [...] mg/ml / clotrimazole 10 mg/ml topical cream (14 sources) Azole Antifungal, Corticosteroid Start: 03-02-2024 End: 09-08-2024 clotrimazole-betam ethasone (Lotrisone) cream Twice daily 03/02/2024 09/08/2024 Discontinued Start: 03-02-2024 End: 08-26-2024 Clotrimazole-Betamethasone 1 -0.05 % cream Discontinued 1 APPLIC TOPICAL Twice daily March 02, 2024 12:00am August 26, 2024 3:34pm 24 hr buPROPion hydrochloride 150 mg extended release oral tablet (18 sources) Aminoketone Start: 01-28-2019 End: 11-27-2023 take 1 tablet by mouth once daily Bupropion Hcl 150 mg tablet extended release 24 hr Discontinued 150 MG PO Daily May 31, 2020 12:00am November 27, 2023 5:45pm cephalexin 500 mg oral capsule (15 sources) Cephalosporin Antibacterial Start: 09-13-2022 End: 11-27-2023 [...] Twice daily as needed November 28, 2023 12:30pm August 26, 2024 3:35pm FreeTextSi capsule with food and water Orally Twice a day as needed; Note: Source Status: Taking; Provider: Brayan Saavedra Start: 11-28-2023 End: 08-26-2024 take 1 capsule by mouth twice daily as needed Lubiprostone 24 mcg capsule Discontinued 24 MCG PO Twice daily as needed November 28, 2023 11:30am August 26, 2024 2:35pm FreeTextSi capsule with food and water Orally Twice a day as needed; Note: Source Status: Taking; Provider: Brayan Saavedra Start: 11-28-2023 take 1 capsule by [facility] twice daily at mealtime as needed Lubiprostone Active 24 MCG PO Twice daily November 28, 2023 12:30pm FreeTextSi capsule with food and water Orally Twice a day as needed; Note: Source Status: Taking; Provider: Brayan Saavedra Start: 11-28-2023 take 1 capsule by mo [facility] twice daily at mealtime as needed Lubiprostone Active 24 MCG PO Twice daily November 28, 2023 11:30am FreeTextSi capsule with food and water Orally Twice a day as needed; Note: Source Status: Taking; Provider: Brayan Saavedra Start: 11-27-2023 End: 11-28-2023 take 1 capsule by mouth twice daily at mealtime as needed Lubiprostone 24 mcg capsule Discontinued MCG PO November 27, 2023 1:00am [...] 1:00am November 27, 2023 5:44pm Start: 05-09-2021 End: 12-08-2023 take 1 tablet [...] Active phentermine hydrochloride 37.5 mg oral tablet (20 sources) Sympathomimetic Amine Anorectic Start: 01-28-2024 End: 04-27-2024 take 1 tablet by mouth once daily 30 minutes after breakfast Phentermine 37.5 mg tablet Discontinued 37.5 MG PO Daily March 02, 2024 3:48pm April 27, 2024 3:35pm must administer 30 minutes before or 1-2 hours after breakfast predniSONE 10 mg oral tablet (20 sources) Start: 08-26-2024 End: 10-21-2024 take 1 tablet by mouth once daily Prednisone 10 mg tablet Discontinued 10 MG PO .COMPLEX 15 August 26, 2024 1:00am October 21, 2024 2:41pm 10 mg orally 1 tab twice a day x 5 days , 1 tab once a day x 5 days; see taper instructions Start: 04-27-2024 End: 10-21-2024 Prednisone 20 mg tablet Disc ontinued 20 MG PO As Directed August 26, 2024 3:35pm October 21, 2024 2:41pm BID x 5 days then daily for [...] Jan, Not-Taking semaglutide 7 mg oral tablet (20 sources) Start: 11-27-2023 End: 11-28-2023 Semaglutide 7 [...] Dec, Active sertraline 25 mg oral tablet (12 sources) Serotonin Reuptake Inhibitor Start: 04-27-2024 End: 08-26-2024 take 1 tablet by mouth once daily Sertraline (Zoloft) 25 mg tablet Discontinued 25 MG PO Daily April 27, 2024 12:00am August 26, 2024 3:35pm Start: 04-26-2024 End: 09-08-2024 sertraline (Zoloft) 50 MG ta blet Indications: Emotional dysregulation First 4 pills split in half. (8 days). Take 1 pill daily there after. 30 tablet 1 04/26/2024 09/08/2024 Discontinued spironolactone 25 mg oral tablet (20 sources) Aldosterone Antagonist Start: 02-07-2022 End: 11-22-2024 take 1 tablet by mouth once daily Spironolactone 25 mg tablet Discontinued 25 MG PO Daily 90 January 20, 2024 4:55pm November 22, 2024 9:14am traMADol hydrochloride 50 mg oral tablet (15 sources) Opioid Agonist Start: 09-13-2022 End: 11-27-2023 take 1 tablet by mouth every four hours as needed for pain Tramadol 50 mg Tablet Discontinued 50 MG PO Q4H as needed for Pain Scale 1 - 4 20 7 September 13, 2022 1:00am November 27, 2023 [...] venlafaxine 37.5 mg extended release oral capsule (20 sources) Serotonin and Norepinephrine Reuptake Inhibitor Start: 11-27-2023 End: 01-28-2024 take 1 capsule by mouth once daily at mealtime Venlafaxine 37.5 mg capsule,extended release 24hr Discontinued 37.5 MG PO Daily November 27, 2023 1:00am January 28, 2024 9:51am FreeText[employer] capsule with food Orally Once a day; Note: Source Status: Not-TakingundefinedPRN; Provider: Dash Abraham Start: 07-24-2023 take 1 capsule by [facility] every twenty-four hours Venlafaxine HCl ER 37.5 MG 1 capsule with food Orally Once a day Jul, Not-Taking/PRN Problems Active Problems Problem Classification Problem Date Documented Da te Episodic/Chronic Abdominal pain (15 sources) Abdominal pain; Translations: [Unspecified abdominal pain] 09-13-2022 Episodic Adjustment disorders (20 sources) Family tension; Translations: [Reaction to severe stress, unspecified] Onset: 2 Resolved: 2 Chronic Administrative/social admission (1 source) Encounter for examination for admission to educational institution Episodic Anxiety disorders (20 sources) Mixed anxiety and depressive disorder; Translations: [Anxiety disorder, unspecified] Onset: 1 Resolved: 1 Chronic Asthma (6 sources) Severe persistent asthma; Translations: [Severe persistent [...] migrainosus; Translations: [Migraine] Onset: 2 04-19-2024 Chronic Headache; including migraine (14 sources) Headache; Translations: [Intractable headache] 11-11-2024 Episodic Immunizations and screening for infectious disease (1 source) Contact with and (suspected) exposure to other viral communicable diseases Episodic Mood disorders (13 sources) Mood swings; Translations: [Unspecified mood [affective] disorder] Onset: 4 Chronic Mood disorders (13 sources) Mood swings; Translations: [Emotional lability] Episodic Nausea and vomiting (10 sources) Nausea with vomiting, unspecified; Translations: [Nausea] Onset: 2 Episodic Noninfectious gastroenteritis (8 sources) Noninfectious enteritis; Translations: [Noninfective gastroenteritis and colitis, unspecified] Onset: 3 Episodic Nonmalignant breast conditions (6 sources) Fibrocystic change of left breast; Translations: [Diffuse cystic mastopathy of left breast] Onset: 4 04-19-2024 Chronic Nonspecific chest pain (20 sources) Chest pain; Translations: [Chest pain, unspecified] Episodic Other aftercare (1 source) Other senior care (current) drug therapy; Translations: [OTH LONG-TERM CURRENT DRUG THERAPY] Onset: 3 Episodic Other bone disease and musculoskeletal deformities (20 sources) Somatic dysfunction of rib; Translations: [Segmental and somatic dysfunction of rib cage] 08-26-2024 Episodic Other bone disease and musculoskeletal deformities (20 sources) Somatic dysfunction of lumbar region; Translations: [Segmental and somatic dysfunction of lumbar region] 08-26-2024 Episodic Other bone disease and musculoskeletal deformities (20 sources) Somatic dysfunction of thoracic region; Translations: [Segmental and somatic dysfunction of thoracic region] 08-26-2024 Episodic Other bone disease and musculoskeletal deformities (20 sources) Cervical somatic dysfunction; Translations: [Segmental and somatic dysfunction of cervical region] 08-26-2024 Episodic Other bone disease and musculoskeletal deformities (20 sources) Somatic dysfunction of sacral region; Translations: [Segmental and somatic dysfunction of sacral region] 08-26-2024 Episodic Other bone disease and musculoskeletal deformities (11 sources) Segmental and somatic dysfunction of cervical region; Translations: [Nonallopathic lesions, cervical region] Onset: 2 Resolved: 2 Episodic Other bone disease and musculoskeletal deformities (12 sources) Segmental and somatic dysfunction of thoracic region; Translations: [Nonallopathic lesions, thoracic region] Onset: 2 Resolved: 2 Episodic Other bone disease and musculoskeletal deformities (12 sources) Segmental and somatic dysfunction of rib cage; Translations: [Nonallopathic lesions, rib cage] Onset: 2 Resolved: 2 Episodic Other bone disease and musculoskeletal deformities (12 sources) Segmental and somatic dysfunction of lumbar region; Translations: [Nonallopathic lesions, lumbar region] Onset: 2 Resolved: 2 Episodic Other bone disease and musculoskeletal deformities (11 sources) Segmental and somatic dysfunction of sacral [...] right hand Episodic Other connective tissue disease (12 sources) Trochanteric bursitis; Translations: [Trochanteric bursitis, right hip] 01-28-2024 Episodic Other connective tissue disease (14 sources) Trochanteric bursitis, right hip; Translations: [Enthesopathy [...] left knee Episodic Other non-traumatic joint disorders (7 sources) Hip pain; Translations: [Pain in right [...] Dyshidrosis [pompholyx] Episodic Other upper respiratory disease (12 sources) Seasonal allergy; Translations: [Other seasonal allergic [...] 4 04-19-2024 Chronic Other upper respiratory infections (4 sources) Sinusitis; Translations: [Chronic sinusitis, unspecified] 12-16-2024 Chronic Other upper respiratory infections (20 sources) [...] sources) Edema, unspecified Episodic Residual codes; unclassified (13 sources) Past history of procedure; Translations: [Other specified postprocedural states] 11-27-2023 Episodic Residual codes; unclassified (4 sources) Family history of aneurysm of artery; Translations: [Family history of ischemic heart disease and other diseases of the circulatory system] 11-11-2024 Episodic Residual codes; unclassified (3 sources) Family history of ischemic heart disease and other diseases of the circulatory system; Translations: [Family history of stroke (cerebrovascular)] 11-11-2024 Episodic Residual codes; unclassified (1 source) Decreased [...] Test Name Value Interpretation Reference Range Facility ED Clinical Summaryon 2024 ED Clinical Summary ED Clinical Summary [place] [id number] ED Clinical Summary Person Information Name: BRANDON LONG/[facility] Age: 49 Years : 1975 Sex: Female Language: Singaporean PCP: MICHEAL BOWLING DO Marital Status: Visit Id: Visit Reason: Cough; Respiratory problem; SOB Speciality: Acuity: 4 Enc Type: Emergency Med Service: Emergency Arrival: 01/02/2025 12:58:33 Discharge: 01/02/2025 14:28:34 LOS: 000 01:30 Checkin: 01/02/2025 12:58:33 Checkout: 01/02/2025 14:28:34 Dispo Type: Home (Routine DC) EVENTS: Event Name Event Status Request Date/Time Start Date/Time Complete Date/Time Arrive Complete 01/02/2025 12:58:33 01/02/2025 12:58:33 01/02/2025 12:58:33 Document Home Meds Request 01/02/2025 12:58:33 Triage Complete 01/02/2025 12:58:33 01/02/2025 13:04:43 01/02/2025 13:04:43 Bed Assign Complete 01/02/2025 13:00:26 01/02/2025 13:00:26 01/02/2025 13:00:26 Dr Exam Complete 01/02/2025 13:00:26 01/02/2025 13:13:20 01/02/2025 13:13:20 RN Exam Complete 01/02/2025 13:00:26 01/02/2025 13:06:27 01/02/2025 13:06:27 Registration Complete 01/02/2025 13:13:20 01/02/2025 13:19:25 01/02/2025 13:19:25 Dr Exam Complete 01/02/2025 13:16:13 01/02/2025 13:16:13 01/02/2025 13:16:13 Reg Complete Request 01/02/2025 13:19:25 Reg Bed Request Complete 01/02/2025 13:19:25 01/02/2025 13:19:25 01/02/2025 13:19:25 Meds Admin Complete 01/02/2025 13:47:46 01/02/2025 13:59:37 X-Ray Complete 01/02/2025 13:47:46 01/02/2025 14:03:59 01/02/2025 14:19:14 RT Tx/ABG Request 01/02/2025 13:47:47 RT Tx/ABG Request 01/02/2025 13:47:47 Wet Read Request 01/02/2025 14:19:14 Discharge Complete 01/02/2025 14:26:20 01/02/2025 14:28:38 01/02/2025 14:28:38 Transfer Complete 01/02/2025 14:28:38 01/02/2025 14:28:38 01/02/2025 14:28:38 [address]: [id number] [facility] [id number] PHYS DOC NOTES: MEDICAL INFORMATION: Prescriptions Given: New Medications [id number], [address], [place] [id number], [phone] albuterol-ipratropium (DuoNeb 2.5 mg-0.5 mg/3 mL Soln-Inh) 3 Milliliter Inhalation 4 times a day as needed Wheezing. Refills: 0. Medications to Continue with No Changes Other Medications amlodipine (amLODIPine 5 mg Tab) 1 Tablets By Mouth every day. olmesartan (olmesartan 40 mg Tab) 1 Tablets By Mouth every day. omeprazole (omeprazole 40 mg Cap-DR) 1 Capsules By Mouth every day. ondansetron (Zofran ODT 4 mg Tab-Dis) 1 Tablets By Mouth every 8 hours. Refills: 0. Patient Specific Meds spironolactone (spironolactone 25 mg Tab) 1 Tablets By Mouth every day. PATIENT EDUCATION INFORMATION: Instructions: Asthma, Adult Follow up: With: Address: When: MICHEAL BOWLING [address] [place] [id number] [employer] (1) In 3 days DIAGNOSIS: 1:Asthma exacerbation Normal [facility] ED Note-Physicianon 01-03-20 ED Note-Physician ED Note-Physician Basic Information Time Seen: Monika Bellamy PA-C 01/02/2025 13:13 Chief Complaint pt states she has allergy induced asthma, states using inhaler at home but not helping. reports cough/cngestion as well. states this happens to her yearly. History of Present Illness 49-year-old female with past medical history of asthma presents here with complaints of wheezing and shortness of breath. Patient reports a few weeks ago she was diagnosed with an upper respiratory infection, was treated with azithromycin at that time. Patient reports that she no longer feels congested or ill but has been having tightness and shortness of breath. Patient has been using her albuterol at home with some relief but not full resolution of symptoms. Patient also complaining of right posterior back pain. Does have history of pleurisy. Patient reports that she generally has asthma flares at this time of year due to the weather changing and surgeries. Of note patient reports that she cannot tolerate prednisone because it makes her joints ache. States she has tolerated Kenalog in the past. Review of Systems All organ systems are reviewed. Pertinent positive and negative findings as mentioned in the HPI. Physical Exam Vitals & Measurements T: 36.5 ???C(Tympanic) HR: 95(Monitored) RR: 20 BP: 152/88 SpO2: 97% HT: 167 cm WT: 75 kg BMI: 26.89 GENERAL APPEARANCE: Well developed, well nourished, alert and cooperative, and appears to be in no acute distress. HEAD: normocephalic, atraumatic EYES: PERRL, EOMI. Vision is grossly intact. EARS: External auditory canals clear, hearing grossly intact. NOSE: No nasal discharge. THROAT: Oral cavity and pharynx normal. Oral mucosa moist. . CARDIAC: Normal heart sounds, no murmurs. Rhythm is regular. LUNGS: And oxygenating comfortably on room air. Mild end expiratory wheezing to the posterior right upper lung leal, no rhonchi, crackles, rales. MUSCULOSKELETAL: Adequately aligned spine. ROM intact spine and extremities. No joint erythema or tenderness. NEUROLOGICAL: CN grossly intact. Strength and sensation symmetric and intact throughout. SKIN: Skin normal color, texture and turgor with no lesions or eruptions. Assessment/Plan 1. Asthma exacerbation (J45.901: Unspecified asthma with (acute) exacerbation) Orders: albuterol-ipratropium , 3 mL, Soln-Inh, NEB, Once, Stop date 01/02/25 13:46:00 EDT, STAT, Start date 01/02/25 13:46:00 EDT albuterol-ipratropium , 3 mL, Inhalation, QID Wheezing, 30 EA, Refill(s) 0, [facility]/pharmacy #[id number], 167, cm, 01/02/25 13:04:00 EDT, Height/Length Dosing, 75, kg, 01/02/25 13:04:00 EDT, Weight Dosing triamcinolone, 40 mg = 1 mL, Susp-Inj, IntraMuscular, Once, Stop date 01/02/25 13:47:00 EDT, STAT, Start date 01/02/25 13:47:00 EDT, 01/02/25 13:47:00 EDT XR Chest Single View 49-year-old female with past medical history of asthma presents to the ER with concerns for reactive airway and asthma exacerbation. In the ER patient is afebrile, vital signs are stable, no acute distress. Patient treated with Kenalog per her request as she states that she cannot tolerate prednisone. Chest x-ray unremarkable, also given DuoNeb in the ER with improvement of symptoms. On reexamination patient resting comfortably in bed. Results are discussed with patient length, she is discharged home with instructions to follow-up with her primary care provider and is to return to the ER with any new or worsening symptoms. Patient given prescription for DuoNebs, she has a nebulizer machine at home. Patient voices understanding and is agreeable to plan Medications Administered Given albuterol-ipratropium Inh Kristyn 3 mL UD, 3 mL, NEB Kenalog 40 mg Injection, 40 mg, IntraMuscular Disposition Plan Patient Discharge Condition improved, stable Discharge Disposition to home Discharge Prescription List Prescriptions DuoNeb 2.5 mg-0.5 mg/3 mL Soln-Inh, 3 mL, Inhalation, QID, PRN Follow-up With When Contact Information MICHEAL BOWLING In [address] [place] [address] [facility] (1) Additional Instructions: Patient Education Asthma, Adult Attestation Patient was treated and evaluated by the Physician Train Electronic Technician. The attending physician was in the Emergency Department at all times and supervised care. The case was discussed with the attending physician and diagnostics were reviewed as needed. Problem List/Past Medical History Ongoing No qualifying data Historical No qualifying data Procedure/Surgical History Gallbladder, Hysterectomy. Medications Inpatient No active inpatient medications Home amLODIPine 5 mg Tab, 5 mg= 1 tab(s), Oral, Daily DuoNeb 2.5 mg-0.5 mg/3 mL Soln-Inh, 3 mL, Inhalation, QID, PRN olmesartan 40 mg Tab, 40 mg= 1 tab(s), Oral, Daily omeprazole 40 mg Cap-DR, 40 mg= 1 cap(s), Oral, Daily Patient Specific Meds, See Instructions spironolactone 25 mg Tab, 25 mg= 1 tab(s), Oral, Daily Zofran ODT 4 mg Tab-Dis, 4 mg= 1 tab(s), Oral, q8hr (more content not included)... Normal [facility] Comment on above: Result Comment: Elec tronically Signed By: Monika Bellamy PA-C\.br\Date and Time Signed: 01/02/25 14:29 EDT\.br\Electronically Co-Signed By: Rickie Bergeron DO\.br\Date and Time Co-Signed: 01/02/25 15:26 EDT ED Patient Summaryon 025 ED Patient Summary ED Patient Summary [address] [address] Patient Discharge Instructions Person Information Name: BRANDON LONG Age: 49 Years Arrival Date: 01/02/2025 12:58:33 Discharge Diagnosis: 1:Asthma exacerbation Primary Care Physician: MICHEAL BOWLING DO Provider Information Primary Provider: Rickie Bergeron DO Advanced Chair Finisher:Monika Bellamy PA-C The exam and treatment you received in the Emergency Department were for an urgent problem and are not intended as complete care. It is important that you follow up with a doctor, nurse practitioner, or physician???s certified nursing assistant for ongoing care. If your symptoms [...] Follow-up Instructions: With: Address: When: MICHEAL BOWLING [address] [place] [address] [facility] (1) In 3 days In the event that this physician does not participate in your insurance network, please consult with your insurance company to find a nearby participating provider. Patient Education Materials: Asthma, Adult A MESSAGE TO ALL PATIENTS REGARDING OPIOIDS PRESCRIPTION OPIOIDS: WHAT YOU NEED TO KNOW Prescription opioids can be used to help relieve afzgwcmi-vm-zdemin pain and are often prescribed following a [...] as well, even when taken as directed: ??? Tolerance???meaning you might need to take more of the medication for the same pain relief ??? Physical dependence???meaning you have symptoms of withdrawal when a medication is stopped ??? Increased sensitivity to pain ??? Constipation ??? Nausea, vomiting, and dry mouth ??? Sleepiness and dizziness ??? Confusion ??? Depression ??? Low levels of testosterone that can result in lower sex drive, energy, and strength ??? Itching and sweating RISKS ARE GREATER WITH: ??? History of drug misuse, substance use disorder, or overdose ??? Mental health conditions (such as depression or anxiety) ??? Sleep apnea ??? Older age (65 years and older) ??? Avoid alcohol while taking prescription opioids. Also, unless specifically advised by your health care provider, medications to avoid include: ??? Benzodiazepines (such as Xanax or Valium) ??? Muscle relaxants (such as Soma or Flexeril) ??? Hypnotics (such as Ambien or Lunesta) ??? Other prescription opioids KNOW YOUR OPTIONS Talk to your health care provider about ways to manage your pain that don???t involve prescription opioids. Some of these options may actually work better and have fewer risks and side effects. Options may include: ??? Pain relievers such as acetaminophen, ibuprofen, and naproxen ??? Some medication that are also used for depression or seizures ??? Physical therapy and exercise ??? Cognitive behavioral therapy, a psychological, goal-directed approach, in which patients learn how to modify physical, behavioral, and emotional triggers of pain and stress. IF YOU ARE PRESCRIBED OPIOIDS FOR PAIN: ??? Never take opioids in greater amounts or more often than prescribed. ??? Follow up with your primary health care provider. o Work together to create a plan on how to manage your pain. o Talk about ways to help manage your pain that don???t involve prescription opioids. o Talk about any and all concerns and side effects. ??? Help prevent misuse and abuse o Never sell or share prescription opioids. o Never use another person???s prescription opioids. ??? Store prescription opioids in a secure place and out of reach of others (this may include visitors, children, friends, and family). ??? Safely dispose of unused prescription opioids: Find your community drug take-back program or your pharmacy mail-back program, or flush them down the toilet, following guidance from the Food and Drug Administration (www.fda.gov/Drugs/Re sourcesForYou). ??? Visit www.cdc.gov/drugoverd ose to learn about the risks of opioids abuse and overdose. ??? If you believe you may be struggling with addiction, tell your health transitional care manager and ask for guidance or call [facility]? (more content not included)... Normal [facility] XR Chest Single Viewon 01-02 XR Chest Single View Exam Date/Time: 01/02/2025 14:19 EDT Reason for Exam: Cough Report IMPRESSION: NO ACUTE CARDIOPULMONARY DISEASE. CLINICAL HISTORY: Cough COMPARISON: NONE. FINDINGS: Osseous structures intact. Cardiopericardial silhouette normal. Pulmonary vasculature normal. Lungs clear. Technical Comments: molly Cannon in mGy = na DAP = na Ordering Provider: Monika Bellamy FINAL REPORT Dictated: 01/02/2025 2:23 pm Arsen Hadley MD Signed (Electronic Signature): 01/02/2025 2:23 pm Signed by: Arsen Hadley MD Transcribed by: MERLINE Technologist: ROLANDO Normal [facility] CT head/brain wo/w conon CT head/brain wo/w con [facility] [place] [address] CT Scan Report Signed Patient: Brandon Long MR#: [id number] : 1975 Acct:[id number] Age/Sex: 48 / F ADM Date: 11/25/24 Loc: CT Room: Type: [facility] Attending Dr: Micheal Bowling DO Copies to: Micheal Bowling DO Ordering Provider: Micheal Bowling DO Date of Service: 11/25/24 CT/CT head/brain wo/w con: R51.9 CT BRAIN WITHOUT CONTRAST/WITH CONTRAST: CLINICAL HISTORY: Head pain, headache, family history of cerebral aneurysm, elevated CRP COMPARISON: 04/30/2010 TECHNIQUE: This CT exam was performed using one or more following dose reduction techniques: Automated exposure control, adjustment of the mA and/or kV according to patient size, or use of iterative reconstruction technique. FINDINGS: There is no evidence of midline shift, intra or extra-axial fluid collection, hemorrhage or CT evidence of stroke. No evidence of abnormal postcontrast enhancement. Visualized intraorbital contents appear unremarkable. Visualized paranasal sinuses are clear. The surrounding soft tissues are normal. CT/CT head/brain wo/w con IMPRESSION: NO ACUTE INTRACRANIAL ABNORMALITY. NO EVIDENCE OF ABNORMAL POSTCONTRAST ENHANCEMENT. Impression dictated by: Sloan Rodgers M.D.11/25/2024 2:00 PM Dictation Location: [place] [address] Transcribed By: [facility] 11/25/24 1400 Dictated By: Sloan Rodgers MD 11/25/24 1346 Signed By: 11/25/24 1400 Normal [facility] A1C with Estimated Average G marge 10-28-2024 Glucose [Mass/Vol] 117 mg/dL Normal [facility] Comment on above: Result Comment: PERF ORMED BY: [place] [address] PATHOLOGIST [employer] MECHANIC NATASHA ADAN M.D. Performed By: #### L IPID, FSH, A1C WTH eA, HSCRP, T4F, TSH3, CBC, CMP #### [facility] [address] [place] [address] #### LIPA, ESTRADIOL #### [facility] , HbA1c (Bld) [Mass fraction] 5.7 % High 4.3-5.6 [facility] Comment on above: Result Comment: Incr eased risk for diabetes: 5.7 - 6.4 diabetes: >6.4 glycemic control for adults with diabetes: <7.0 Performed By: #### L IPID, FSH, A1C WTH eA, HSCRP, T4F, TSH3, CBC, CMP #### [facility] [address] [place] [address] [place] #### LIPA, ESTRADIOL #### [facility] , Alanine aminotransferase [En zymatic activity/volume] in Serum or PlasmaOrdered By: Micheal Bowling on 10-28-2024 ALT [Catalytic activity/Vol] Alanine aminotransferase [Enzymatic activity/volume] in Serum or Plasma [facility] Albumin [Mass/volume] in Ser um or Plasma by Bromocresol green (BCG) dye binding methoOrdered By: Micheal Bowling on 10-28-2024 Albumin BCG dye [Mass/Vol] Albumin [Mass/volume] in Serum or Plasma by Bromocresol green (BCG) dye binding metho 3.5-5.7 [facility] Alkaline phosphatase [Enzyma tic activity/volume] in Serum or PlasmaOrdered By: Micheal Bowling on 10-28-2024 ALP [Catalytic activity/Vol] Alkaline phosphatase [Enzymatic activity/volume] in Serum or Plasma 34-104 [facility] Aspartate aminotransferase [ Enzymatic activity/volume] in Serum or PlasmaOrdered By: Micheal Bowling on 10-28-2024 AST [Catalytic activity/Vol] Aspartate aminotransferase [Enzymatic activity/volume] in Serum or Plasma 13-39 [facility] Basophils Auto (Bld) [#/Vol] Ordered By: Micheal Bowling on 10-28-2024 Basophils (Bld) [#/Vol] Automated basoph il count 0.0-0.2 [facility] Basophils/100 WBC Auto (Bld) Ordered By: Micheal Bowling on 10-28-2024 Basophils/100 WBC (Bld) Automated basophil % . [facility] Bilirubin.total [Mass/volume ] in Serum or PlasmaOrdered By: Micheal Bowling on 10-28-2024 Bilirubin [Mass/Vol] Bilirubin.total [Mass/volume] in Serum or Plasma 0.3-1.0 [facility] Blood estimated average gluc ose determination by estimation from glycated hemoglobinOrdered By: Micheal Bowling on 10-28-2024 Average glucose Estimated from glycated hemoglobin (Bld) [Mass/Vol] Glucose mean value [Mass/volume] in Blood Estimated from glycated hemoglobin [facility] C reactive protein [Mass/vol ume] in Serum or Plasma by High sensitivity methodOrdered By: Micheal Bowling on 10-28-2024 CRP High sensitivity method [Mass/Vol] C reactive protein [Mass/volume] in Serum or Plasma by High sensitivity method High 0.0-0.9 [facility] Comment on above: Cardiovascular Risk Classification (AHA/CDC)hsCRP [...] [Mass/volume ] in Serum or Plasma 8.6-10.3 [facility] Carbon dioxide, total [Moles /volume] in Serum or PlasmaOrdered By: Micheal Bowling on 10-28-2024 CO2 [Moles/Vol] Carbon dioxide, tota l [Moles/volume] in Serum or Plasma 21.0-31.0 [facility] Chloride [Moles/volume] in S lilia or PlasmaOrdered By: Micheal Bowling on 10-28-2024 Chloride [Moles/Vol] Chloride [Moles/volume] in Serum or Plasma 98-107 [facility] Cholesterol [Mass/volume] in Serum or PlasmaOrdered By: Micheal Bowling on 10-28-2024 Cholesterol [Mass/Vol] Cholesterol [Mass/volume] in Serum or Plasma 140-200 [facility] Comment on above: Chol less than 200 m g/dl low riskChol 201-239 mg/dl borderline riskChol 240 mg/dl and greater high risk Cholesterol in HDL [Mass/vol ume] in Serum or PlasmaOrdered By: Micheal Bowling on 10-28-2024 Cholesterol in HDL [Mass/Vol] Serum or plasma high density lipoprotein (HDL) cholesterol measurement 23-92 [facility] Comment on above: HDL CHOL ATP-III CLA SSIFICATION Cardiovascular RiskHDL > or equal to 60 mg/dL LOWHDL < 40 mg/dL HIGH Cholesterol in LDL Calc [Mas s/Vol]Ordered By: Micheal Bowling on 10-28-2024 Cholesterol in LDL [Mass/Vol] Cholesterol in LDL [Mass/volume] in Serum or Plasma by calculation High 0-100 [facility] Comment on above: LDL ATP III CLASSIFI CATIONLDL less than 100 mg/dL OptimalLDL 100-129 mg/dL Near or above optimalLDL 130-159 mg/dL Borderline highLDL 160-189 mg/dL HighLDL greater than 189 mg/dL Very high Cholesterol in VLDL Calc [Ma ss/Vol]Ordered By: Micheal Bowling on 10-28-2024 Cholesterol in VLDL [Mass/Vol] Cholesterol in VLDL [Mass/volume] in Serum or Plasma by calculation [facility] Complete Blood Count Auto Di ffon 10-28-2024 Basophils (Bld) [#/Vol] 0.1 10*3/uL Normal 0.0-0.2 [facility] Comment on above: Result Comment: PERF ORMED BY: [place] [address] PATHOLOGIST [employer] NATASHA ADAN M.D. Performed By: #### L IPID, FSH, A1C WTH eA, HSCRP, T4F, TSH3, CBC, CMP #### [address] #### LIPA, ESTRADIOL #### [facility] , Basophils/100 WBC (Bld) 1.1 % Normal . [facility] Comment on above: Performed By: #### L IPID, FSH, A1C WTH eA, HSCRP, T4F, TSH3, CBC, CMP #### [address] #### LIPA, ESTRADIOL #### [facility] , Eosinophils (Bld) [#/Vol] 0.3 10*3/uL Normal 0.0-0.45 [facility] Comment on above: Performed By: #### L IPID, FSH, A1C WTH eA, HSCRP, T4F, TSH3, CBC, CMP #### [address] #### LIPA, ESTRADIOL #### [facility] , Eosinophils/100 WBC (Bld) 3.1 % Normal . [facility] Comment on above: Performed By: #### L IPID, FSH, A1C WTH eA, HSCRP, T4F, TSH3, CBC, CMP #### [place] [address] [place] #### LIPA, ESTRADIOL #### [facility] , Erythrocyte distribution width (RBC) [Ratio] 12.8 % Normal 11.9-15.3 [facility] Comment on above: Performed By: #### L IPID, FSH, A1C WTH eA, HSCRP, T4F, TSH3, CBC, CMP #### [place] [address] [place] #### LIPA, ESTRADIOL #### [facility] , Hematocrit (Bld) [Volume fraction] 38.7 % Normal 34.0-46.4 [facility] Comment on above: Performed By: #### L IPID, FSH, A1C WTH eA, HSCRP, T4F, TSH3, CBC, CMP #### [address] #### LIPA, ESTRADIOL #### [facility] , Hemoglobin (Bld) [Mass/Vol] 13.2 g/dL Normal 11.8-15.4 [facility] Comment on above: Performed By: #### L IPID, FSH, A1C WTH eA, HSCRP, T4F, TSH3, CBC, CMP #### [place] [address] [place] #### LIPA, ESTRADIOL #### [facility] , Lymphocytes (Bld) [#/Vol] 2.8 10*3/uL Normal 1.00-4.8 [facility] Comment on above: Performed By: #### L IPID, FSH, A1C WTH eA, HSCRP, T4F, TSH3, CBC, CMP #### [place] [address] [place] #### LIPA, ESTRADIOL #### [facility] , Lymphocytes/100 WBC (Bld) 30.9 % Normal . [facility] Comment on above: Performed By: #### L IPID, FSH, A1C WTH eA, HSCRP, T4F, TSH3, CBC, CMP #### [place] [address] [place] #### LIPA, ESTRADIOL #### [facility] , MCH (RBC) [Entitic mass] 29.0 pg Normal 24.7-34.3 [facility] Comment on above: Performed By: #### L IPID, FSH, A1C WTH eA, HSCRP, T4F, TSH3, CBC, CMP #### [place] [address] [place] #### LIPA, ESTRADIOL #### [facility] , MCV (RBC) [Entitic vol] 84.8 fL Normal 80-100 [facility] Comment on above: Performed By: #### L IPID, FSH, A1C WTH eA, HSCRP, T4F, TSH3, CBC, CMP #### [address] #### LIPA, ESTRADIOL #### [facility] , Mean Corpuscular HGB Conc 34.2 g/dL Normal 32.0-35.0 [facility] Comment on above: Performed By: #### L IPID, FSH, A1C WTH eA, HSCRP, T4F, TSH3, CBC, CMP #### [address] #### LIPA, ESTRADIOL #### [facility] , Monocytes (Bld) [#/Vol] 0.5 10*3/uL Normal 0.0-0.8 [facility] Comment on above: Performed By: #### L IPID, FSH, A1C WTH eA, HSCRP, T4F, TSH3, CBC, CMP #### [facility] [address] [place] [address] [place] #### LIPA, ESTRADIOL #### [facility] , Monocytes/100 WBC (Bld) 5.8 % Normal . [facility] Comment on above: Performed By: #### L IPID, FSH, A1C WTH eA, HSCRP, T4F, TSH3, CBC, CMP #### [address] [address] [place] #### LIPA, ESTRADIOL #### [facility] , Neutrophils (Bld) [#/Vol] 5.4 10*3/uL Normal 1.8-7.7 [facility] Comment on above: Performed By: #### L IPID, FSH, A1C WTH eA, HSCRP, T4F, TSH3, CBC, CMP #### [place] [address] [place] #### LIPA, ESTRADIOL #### [facility] , Neutrophils/100 WBC (Bld) 59.1 % Normal . [facility] Comment on above: Performed By: #### L IPID, FSH, A1C WTH eA, HSCRP, T4F, TSH3, CBC, CMP #### [address] #### LIPA, ESTRADIOL #### [facility] , NRBC% 0.1 /100{WBC} Normal 0-0.5 [facility] Comment on above: Performed By: #### L IPID, FSH, A1C WTH eA, HSCRP, T4F, TSH3, CBC, CMP #### [place] [address] [place] #### LIPA, ESTRADIOL #### [facility] , Platelet mean volume (Bld) [Entitic vol] 8.6 fL Normal 6.3-10.7 [facility] Comment on above: Performed By: #### L IPID, FSH, A1C WTH eA, HSCRP, T4F, TSH3, CBC, CMP #### [facility] [address] [place] [address] [place] #### LIPA, ESTRADIOL #### [facility] , Platelets (Bld) [#/Vol] 276 10*3/uL Normal 150-450 [facility] Comment on above: Performed By: #### L IPID, FSH, A1C WTH eA, HSCRP, T4F, TSH3, CBC, CMP #### [place] [address] [place] #### LIPA, ESTRADIOL #### [facility] , RBC (Bld) [#/Vol] 4.56 10*6/uL Normal 3.60-5.00 [facility] Comment on above: Performed By: #### L IPID, FSH, A1C WTH eA, HSCRP, T4F, TSH3, CBC, CMP #### [place] [address] [place] #### LIPA, ESTRADIOL #### [facility] , WBC (Bld) [#/Vol] 9.2 10*3/uL Normal 3.8-11.6 [facility] Comment on above: Performed By: #### L IPID, FSH, A1C WTH eA, HSCRP, T4F, TSH3, CBC, CMP #### [place] [address] [place] #### LIPA, ESTRADIOL #### [facility] , Comprehensive Metabolic Pane kc 10-28-2024 Albumin [Mass/Vol] 4.4 g/dL Normal 3.5-5.7 [facility] Comment on above: Performed By: #### L IPID, FSH, A1C WTH eA, HSCRP, T4F, TSH3, CBC, CMP #### [place] [address] [place] #### LIPA, ESTRADIOL #### [facility] , Albumin/Globulin [Mass ratio] 1.8 {ratio} Normal [facility] Comment on above: Performed By: #### L IPID, FSH, A1C WTH eA, HSCRP, T4F, TSH3, CBC, CMP #### [place] [address] [place] #### LIPA, ESTRADIOL #### [facility] , ALP [Catalytic activity/Vol] 59 U/L Normal 34-104 [facility] Comment on above: Performed By: #### L IPID, FSH, A1C WTH eA, HSCRP, T4F, TSH3, CBC, CMP #### [place] [address] [place] #### LIPA, ESTRADIOL #### [facility] , ALT [Catalytic activity/Vol] 14 U/L Normal 7-52 [facility] Comment on above: Performed By: #### L IPID, FSH, A1C WTH eA, HSCRP, T4F, TSH3, CBC, CMP #### [place] [address] [place] #### LIPA, ESTRADIOL #### [facility] , Anion gap [Moles/Vol] 8.3 mmol/L Normal 6.0-15.0 [facility] Comment on above: Performed By: #### L IPID, FSH, A1C WTH eA, HSCRP, T4F, TSH3, CBC, CMP #### [place] [address] [place] #### LIPA, ESTRADIOL #### [facility] , AST [Catalytic activity/Vol] 15 U/L Normal 13-39 [facility] Comment on above: Performed By: #### L IPID, FSH, A1C WTH eA, HSCRP, T4F, TSH3, CBC, CMP #### [place] [address] [place] #### LIPA, ESTRADIOL #### [facility] , Bilirubin [Mass/Vol] 0.6 mg/dL Normal 0.3-1.0 [facility] Comment on above: Performed By: #### L IPID, FSH, A1C WTH eA, HSCRP, T4F, TSH3, CBC, CMP #### [facility] [address] [place] [address] [place] #### LIPA, ESTRADIOL #### [facility] , Calcium [Mass/Vol] 9.3 mg/dL Normal 8.6-10.3 [facility] Comment on above: Performed By: #### L IPID, FSH, A1C WTH eA, HSCRP, T4F, TSH3, CBC, CMP #### [place] [address] [place] #### LIPA, ESTRADIOL #### [facility] , Chloride [Moles/Vol] 104 mmol/L Normal 98-107 [facility] Comment on above: Performed By: #### L IPID, FSH, A1C WTH eA, HSCRP, T4F, TSH3, CBC, CMP #### [place] [address] [place] #### LIPA, ESTRADIOL #### [facility] , CO2 [Moles/Vol] 30.7 mmol/L Normal 21.0-31.0 [facility] Comment on above: Performed By: #### L IPID, FSH, A1C WTH eA, HSCRP, T4F, TSH3, CBC, CMP #### [place] [address] [place] #### LIPA, ESTRADIOL #### [facility] , Creatinine [Mass/Vol] 0.83 mg/dL Normal 0.60-1.20 [facility] Comment on above: Performed By: #### L IPID, FSH, A1C WTH eA, HSCRP, T4F, TSH3, CBC, CMP #### [place] [address] [place] #### LIPA, ESTRADIOL #### [facility] , GFR/1.73 sq M.predicted MDRD (S/P/Bld) [Vol rate/Area] mL/min/{1.73_m2} Normal [facility] Comment on above: Performed By: #### L IPID, FSH, A1C WTH eA, HSCRP, T4F, TSH3, CBC, CMP #### [place] [address] [place] #### LIPA, ESTRADIOL #### [facility] , Globulin (S) [Mass/Vol] 2.5 g/dL Normal T [facility] Comment on above: Performed By: #### L IPID, FSH, A1C WTH eA, HSCRP, T4F, TSH3, CBC, CMP #### [place] [address] [place] #### LIPA, ESTRADIOL #### [facility] , Glucose [Mass/Vol] 97 mg/dL Normal 70-100 [facility] Group Comment on above: Result Comment: [place] Glucose Reference Range is dependent on time and content of last meal. Glucose of more than 200 mg/dL in a nonstressed, ambulatory subject supports the diagnosis of Diabetes Mellitus. ADA recommended reference range Performed By: #### L IPID, FSH, A1C WTH eA, HSCRP, T4F, TSH3, CBC, CMP #### [place] [address] [place] #### LIPA, ESTRADIOL #### [facility] , Potassium [Moles/Vol] 4.0 mmol/L Normal 3.5-5.1 [facility] Comment on above: Performed By: #### L IPID, FSH, A1C WTH eA, HSCRP, T4F, TSH3, CBC, CMP #### [place] [address] [place] #### LIPA, ESTRADIOL #### [facility] , Protein [Mass/Vol] 6.9 g/dL Normal 6.4-8.9 [facility] Comment on above: Performed By: #### L IPID, FSH, A1C WTH eA, HSCRP, T4F, TSH3, CBC, CMP #### [place] [address] [place] #### LIPA, ESTRADIOL #### [facility] , Sodium [Moles/Vol] 139 mmol/L Normal 136-145 [facility] Comment on above: Performed By: #### L IPID, FSH, A1C WTH eA, HSCRP, T4F, TSH3, CBC, CMP #### [place] [address] [place] #### LIPA, ESTRADIOL #### [facility] , Urea nitrogen [Mass/Vol] 10 mg/dL Normal 7-25 [facility] Comment on above: Performed By: #### L IPID, FSH, A1C WTH eA, HSCRP, T4F, TSH3, CBC, CMP #### [address] #### LIPA, ESTRADIOL #### [facility] , Creatinine [Mass/volume] in Serum or PlasmaOrdered By: Micheal Bowling on 10-28-2024 Creatinine [Mass/Vol] Creatinine [Mass/volume] in Serum or Plasma 0.60-1.20 [facility] Eosinophils Auto (Bld) [#/Vo l]Ordered By: Micheal Bowling on 10-28-2024 Eosinophils (Bld) [#/Vol] Automated eosinophil count 0.0-0.45 [facility] Eosinophils/100 WBC Auto (Bl d)Ordered By: Micheal Bowling on 10-28-2024 Eosinophils/100 WBC (Bld) Automated eosinophil % . [facility] Erythrocyte distribution wid th Auto (RBC) [Ratio]Ordered By: Micheal Bowling on 10-28-2024 Erythrocyte distribution width (RBC) [Ratio] Erythrocyte distribution width [Ratio] by Automated count 11.9-15.3 [facility] Estradiolon 10-28-2024 Estradiol 26.6 pg/mL Normal . [facility] Comment on above: Result Comment: Adul t Female Range Follicular phase 12.5 - 166.0 Ovulation phase 85.8 - 498.0 Luteal phase 43.8 - 211.0 Postmenopausal <6.0 - 54.7 1st trimester 215.0 - >4300.0 Kathi ECLIA methodology Performed at: - [facility] [id number] Manager Program: Damir Young PhD, Phone: [phone] PERFORMED BY: [place] [address] PATHOLOGIST [employer] NATASHA ADAN M.D. Performed By: #### L IPID, FSH, A1C WTH eA, HSCRP, T4F, TSH3, CBC, CMP #### [facility] [address] [place] [address] [place] #### LIPA, ESTRADIOL #### [facility] , Follicle Stimulating Hormone on 10-28-2024 Follicle Stimulating Hormone 30.9 m[iU]/mL Normal [facility] Comment on above: Result Comment: FEMA LE NORMALS (PREMENOPAUSE) MID-FOLLICULAR PHASE: 3.9-8.8 mIU/mL MID-CYCLE PEAK: 4.5-22.5 mIU/mL MID-LUTEAL PHASE: 1.8-5.1 mIU/mL FEMALE NORMALS (POSTMENOPAUSE): 16.7-113.6 mIU/mL MALE NORMALS: 1.3-19.3 mIU/mL PERFORMED BY: [place] [address] PATHOLOGIST [employer] NATASHA ADAN M.D. Performed By: #### L IPID, FSH, A1C WTH eA, HSCRP, T4F, TSH3, CBC, CMP #### [facility] [address] [place] [address] #### LIPA, ESTRADIOL #### [facility] , Follitropin [Units/volume] i n Serum or PlasmaOrdered By: Micheal Bowling on 10-28-2024 Follitropin Qn Follitropin [Units/volume] in Serum or Plasma [facility] Comment on above: FEMALE NORMALS (THIERNO ENOPAUSE) MID-FOLLICULAR PHASE: 3.9-8.8 mIU/mL MID-CYCLE PEAK: 4.5-22.5 mIU/mL MID-LUTEAL PHASE: 1.8-5.1 mIU/mLFEMALE NORMALS (POSTMENOPAUSE): 16.7-113.6 mIU/mLMALE NORMALS: 1.3-19.3 mIU/mL Free T4 (Free Thyroxine)on 0 10-28-2024 Free T4 [Mass/Vol] 0.78 ng/dL Normal 0.61-1.12 [facility] Comment on above: Performed By: #### L IPID, FSH, A1C WTH eA, HSCRP, T4F, TSH3, CBC, CMP #### [facility] [address] #### LIPA, ESTRADIOL #### [facility] , Globulin Calc (S) [Mass/Vol] Ordered By: Micheal Bowling on 10-28-2024 Globulin (S) [Mass/Vol] Serum globulin measurement by calculation (mass/volume) [facility] Glucose [Mass/volume] in Ser um or PlasmaOrdered By: Micheal Bowling on 10-28-2024 Glucose [Mass/Vol] Glucose [Mass/volume ] in Serum or Plasma 70-100 [facility] Comment on above: ADA recommended refe rence rangeRandom Glucose Reference Range is dependent on time and content of last meal. Glucose of more than 200 mg/dL in a nonstressed, ambulatory subject supports the diagnosis of Diabetes Mellitus. Hematocrit Auto (Bld) [Volum e fraction]Ordered By: Micheal Bowling on 10-28-2024 Hematocrit (Bld) [Volume fraction] Hematocrit [Volume Fraction] of Blood by Automated count 34.0-46.4 [facility] Hemoglobin A1c/Hemoglobin.to davi in BloodOrdered By: Micheal Bowling on 10-28-2024 HbA1c (Bld) [Mass fraction] Hemoglobin A1c percentage High 4.3-5.6 [facility] Comment on above: Increased risk for d iabetes: 5.7 - 6.4diabetes: >6.4glycemic control for adults with diabetes: <7.0 Hemoglobin [Mass/volume] in BloodOrdered By: Micheal Bowling on 10-28-2024 Hemoglobin (Bld) [Mass/Vol] Hemoglobin [Mass/volume] in Blood 11.8-15.4 [facility] High Sensitive CRPon 025 High Sensitive CRP 17.2 mg/L High 0.0-0.9 [facility] Comment on above: Result Comment: [...] for estimation of CVD risk. PERFORMED BY: [place] [address] PATHOLOGIST [employer] NATASHA ADAN M.D. Performed By: #### L IPID, FSH, A1C WTH eA, HSCRP, T4F, TSH3, CBC, CMP #### [place] [address] [place] #### LIPA, ESTRADIOL #### [facility] , Leukocytes [#/volume] correc brenda for nucleated erythrocytes in Blood by Automated counOrdered By: Micheal Bowling on 10-28-2024 WBC corrected for nucl RBC Auto (Bld) [#/Vol] Leukocytes [#/volume] corrected for nucleated erythrocytes in Blood by Automated coun 3.8-11.6 [facility] Lipid Panelon 10-28-2024 Cholesterol [Mass/Vol] 181 mg/dL Normal 140-200 [facility] Comment on above: Result Comment: Chol less than 200 mg/dl low risk Chol 201-239 mg/dl borderline risk Chol 240 mg/dl and greater high risk Performed By: #### L IPID, FSH, A1C WTH eA, HSCRP, T4F, TSH3, CBC, CMP #### [facility] [address] [place] [address] [place] #### LIPA, ESTRADIOL #### [facility] , Cholesterol in HDL [Mass/Vol] 40 mg/dL Normal 23-92 [facility] Comment on above: Result Comment: HDL CHOL ATP-III CLASSIFICATION Cardiovascular Risk HDL > or equal to 60 mg/dL LOW HDL < 40 mg/dL HIGH Performed By: #### L IPID, FSH, A1C WTH eA, HSCRP, T4F, TSH3, CBC, CMP #### [place] [address] [place] #### LIPA, ESTRADIOL #### [facility] , Cholesterol.total/Spring sterol in HDL [Mass ratio] 4.5 {ratio} Normal <5.0 [facility] Comment on above: Performed By: #### L IPID, FSH, A1C WTH eA, HSCRP, T4F, TSH3, CBC, CMP #### [place] [address] [place] #### LIPA, ESTRADIOL #### [facility] , LDL Cholesterol,Calculated 115 mg/dL High 0-100 [facility] Comment on above: Result Comment: LDL ATP III CLASSIFICATION LDL less than 100 mg/dL Optimal LDL 100-129 mg/dL Near or above optimal LDL 130-159 mg/dL Borderline high LDL 160-189 mg/dL High LDL greater than 189 mg/dL Very high Performed By: #### L IPID, FSH, A1C WTH eA, HSCRP, T4F, TSH3, CBC, CMP #### [place] [address] [place] #### LIPA, ESTRADIOL #### [facility] , Triglyceride w/Reflex 130 mg/dL Normal 0-149 [facility] Comment on above: Result Comment: TRIG ATP III CLASSIFICATION TRIG less than 150 mg/dL Normal TRIG 150-199 mg/dL Borderline high TRIG 200-500 mg/dL High TRIG greater than 500 mg/dL Very high Standard traceable to the Center for Disease Conrtrol and Prevention (CDC) test method. Performed By: #### L IPID, FSH, A1C WTH eA, HSCRP, T4F, TSH3, CBC, CMP #### [place] [address] [place] #### LIPA, ESTRADIOL #### [facility] , VLDL CHOLESTEROL 26 mg/dL Normal [facility] Comment on above: Performed By: #### L IPID, FSH, A1C WTH eA, HSCRP, T4F, TSH3, CBC, CMP #### [place] [address] [place] #### LIPA, ESTRADIOL #### [facility] , Lipoprotein (a)on 10-28-2024 Lipoprotein a [Mass/Vol] 135.5 mg/dL High <75.0 [facility] Comment on above: Result Comment: Note : Values greater than or equal to 75.0 nmol/L may indicate an independent risk factor for CHD, but must be evaluated with caution when applied to non- populations due to the influence of genetic factors on Lp(a) across ethnicities. Performed at: - [facility] [address] [id number] Manager Program: Damir Young PhD, Phone: [phone] Performed By: #### L IPID, FSH, A1C WTH eA, HSCRP, T4F, TSH3, CBC, CMP #### [address] #### LIPA, ESTRADIOL #### [facility] , Lymphocytes Auto (Bld) [#/Vo l]Ordered By: Micheal Bowling on 10-28-2024 Lymphocytes (Bld) [#/Vol] Lymphocytes [#/volume] in Blood by Automated count 1.00-4.8 [facility] Lymphocytes/100 WBC Auto (Bl d)Ordered By: Micheal Bowling on 10-28-2024 Lymphocytes/100 WBC (Bld) Lymphocytes/100 leukocytes in Blood by Automated count . [facility] MCH Auto (RBC) [Entitic mass ]Ordered By: Micheal Bowling on 10-28-2024 MCH (RBC) [Entitic mass] MCH [Entitic mass] by Automated count 24.7-34.3 [facility] MCHC Auto (RBC) [Mass/Vol]Or dered By: Micheal Bowling on 10-28-2024 MCHC (RBC) [Mass/Vol] MCHC [Mass/volume] by Automated count 32.0-35.0 [facility] MCV Auto (RBC) [Entitic vol] Ordered By: Micheal Bowling on 10-28-2024 MCV (RBC) [Entitic vol] MCV [Entitic vol ume] by Automated count 80-100 [facility] Monocytes Auto (Bld) [#/Vol] Ordered By: Micheal Bowling on 10-28-2024 Monocytes (Bld) [#/Vol] Automated blood monocyte count 0.0-0.8 [facility] Monocytes/100 WBC Auto (Bld) Ordered By: Micheal Bowling on 10-28-2024 Monocytes/100 WBC (Bld) Automated monocyte % . [facility] Neutrophils Auto (Bld) [#/Vo l]Ordered By: Micheal Bowling on 10-28-2024 Neutrophils (Bld) [#/Vol] Neutrophils [#/volume] in Blood by Automated count 1.8-7.7 [facility] Neutrophils/100 WBC Auto (Bl d)Ordered By: Micheal Bowling on 10-28-2024 Neutrophils/100 WBC (Bld) Automated neutrophil % . [facility] No Panel InformationOrdered By: Micheal Bowling on 10-28-2024 Estimated GFR (CKD-EPI) > 60.0 mL/Min [facility] Pharmacy Creatinine Clearance (Chem N/A [facility] Nucleated erythrocytes [Pres ence] in Blood by Automated countOrdered By: Micheal Bowling on 10-28-2024 Nucleated RBC Auto Ql (Bld) Nucleated erythrocytes [Presence] in Blood by Automated count 0-0.5 [facility] Platelet mean volume Auto (B ld) [Entitic vol]Ordered By: Micheal Bowling on 10-28-2024 Platelet mean volume (Bld) [Entitic vol] Platelet mean volume [Entitic volume] in Blood by Automated count 6.3-10.7 [facility] Platelets Auto (Bld) [#/Vol] Ordered By: Micheal Bowling on 10-28-2024 Platelets (Bld) [#/Vol] Platelets [#/vol ume] in Blood by Automated count 150-450 [facility] Potassium [Moles/volume] in Serum or PlasmaOrdered By: Micheal Bowling on 10-28-2024 Potassium [Moles/Vol] Potassium [Moles/volume] in Serum or Plasma 3.5-5.1 [facility] Protein [Mass/volume] in Ser um or PlasmaOrdered By: Micheal Bowling on 10-28-2024 Protein [Mass/Vol] Protein [Mass/volume ] in Serum or Plasma 6.4-8.9 [facility] RBC Auto (Bld) [#/Vol]Ordere d By: Micheal Bowling on 10-28-2024 RBC (Bld) [#/Vol] Erythrocytes [#/volume] in Blood by Automated count 3.60-5.00 [facility] Serum or plasma albumin/glob ulin mass ratioOrdered By: Micheal Bowling on 10-28-2024 Albumin/Globulin [Mass ratio] Serum or plasma albumin/globulin mass ratio [facility] Serum or plasma anion gap de terminationOrdered By: Micheal Bowling on 10-28-2024 Anion gap [Moles/Vol] Serum or plasma an ion gap determination 6.0-15.0 [facility] Serum or plasma estradiol (E 2) measurement (mass/volume)Ordered By: Micheal Bowling on 10-28-2024 E2 [Mass/Vol] Serum or plasma estradiol (E2) measurement (mass/volume) . [facility] Comment on above: Adult Female Range F ollicular phase 12.5 - 166.0 Ovulation phase 85.8 - 498.0 Luteal phase 43.8 - 211.0 Postmenopausal <6.0 - 54.7 1st trimester 215.0 - >4300.0Roche ECLIA methodologyPerformed at: [facility] [place] [id number] Director: Damir Young PhD, Phone: [phone] Serum or plasma lipoprotein a measurement (moles/volume)Ordered By: Micheal Bowling on 10-28-2024 Lipoprotein a [Moles/Vol] Serum or plasma lipoprotein a measurement (moles/volume) High <75.0 [facility] Comment on above: Note: Values greater than or equal to 75.0 nmol/L may indicate an independent risk factor for CHD, but must be evaluated with caution when applied to non- populations due to the influence of genetic factors on Lp(a) across ethnicities.Performed at: [facility] [place], [place] [id number] Director: Damir Young PhD, Phone: [phone] Serum or plasma total choles terol/high density lipoprotein (HDL) cholesterol mass ratOrdered By: Micheal Bowling on 10-28-2024 Cholesterol.total/Spring sterol in HDL [Mass ratio] Serum or plasma total cholesterol/high density lipoprotein (HDL) cholesterol mass rat <5.0 [facility] Sodium [Moles/volume] in Ser um or PlasmaOrdered By: Micheal Bowling on 10-28-2024 Sodium [Moles/Vol] Sodium [Moles/volume ] in Serum or Plasma 136-145 [facility] Thyroid Stimulating Hormoneo n 10-28-2024 TSH Qn 3.29 m[IU]/L Normal 0.45-5.33 [facility] Comment on above: Performed By: #### L IPID, FSH, A1C WTH eA, HSCRP, T4F, TSH3, CBC, CMP #### [facility] [address] [place] [address] #### LIPA, ESTRADIOL #### [facility] , Thyrotropin [Units/volume] i n Serum or PlasmaOrdered By: Micheal Bowling on 10-28-2024 TSH Qn Thyrotropin [Units/volume] in Serum or Plasma 0.45-5.33 [facility] Thyroxine (T4) free [Mass/vo lume] in Serum or PlasmaOrdered By: Micheal Bowling on 10-28-2024 Free T4 [Mass/Vol] Thyroxine (T4) free [Mass/volume] in Serum or Plasma 0.61-1.12 [facility] Triglyceride [Mass/volume] i n Serum or PlasmaOrdered By: Micheal Bowling on 10-28-2024 Triglyceride [Mass/Vol] Triglyceride [Mass/volume] in Serum or Plasma 0-149 [facility] Comment on above: TRIG ATP III CLASSIF ICATIONTRIG less than 150 mg/dL NormalTRIG 150-199 mg/dL Borderline highTRIG 200-500 mg/dL High TRIG greater than 500 mg/dL Very highStandard traceable to the Center for Disease Conrtrol and Prevention (CDC) test method. Urea nitrogen [Mass/volume] in Serum or PlasmaOrdered By: Micheal Bowling on 10-28-2024 Urea nitrogen [Mass/Vol] Urea nitrogen [Mass/volume] in Serum or Plasma 7-25 [facility] WBC Auto (Bld) [#/Vol]Ordere d By: Micheal Bowling on 10-28-2024 WBC (Bld) [#/Vol] Leukocytes [#/volume ] in Blood by Automated count 3.8-11.6 [facility] Laboratory - Chemistry and C hemistry - challengeon 08-26-2024 Bilirubin Ql (U) Negative [facility] Glucose (U) [Mass/Vol] Negative [facility] Ketones Ql (U) Negative [facility] pH (U) 6.0 [pH] [facility] Specific gravity (U) [Rel density] 1.015 [facility] Urobilinogen (U) [Mass/Vol] 0.2 mg/dL [facility] Laboratory - Urinalysison Leukocyte esterase Test strip Ql (U) Negative [facility] Nitrite Ql (U) Negative [facility] Protein Ql (U) Negative [facility] No Panel Informationon 08-26 Urine Occult Blood Negative [facility] - Microbiology an d Antimicrobial susceptibilityon 07-26-2024 SARS-CoV-2 (COVID-19) RNA KIRTI+probe Ql (Unsp spec) Negative [facility] No Panel Informationon 07-26 FLU A Negative [facility] FLU B Negative [facility] Interpretation and review of laboratory results Normal [facility] S. pyogenes DNA KIRTI+probe No m (Unsp spec)on 07-26-2024 RESULT Negative [facility] Influenza virus B Ag [Presen ce] in Upper respiratory specimen by Rapid immunoassayon 06-22-2024 FLUBV Ag IA.rapid Ql (Nph) Influenza virus B Ag [Presence] in Upper respiratory specimen by Rapid immunoassay [facility] No Panel InformationOrdered By: Micheal Bowling on 06-22-2024 Quick Strep (POC) [facility] RSV (POC) [facility] No Panel Informationon 06-22 Influenza Type A (Rapid) Negative [facility] POC SARS CoV-2 Antigen Negative [facility] Cortisolon 04-07-2024 Cortisol 12.5 ug/dL Normal [facility] Comment on above: Result Comment: Refe rence range: AM 6 - 24 ug/dl PM <10 ug/dl [facility] Laboratory finishing range operator and method: REJI UNICEL DXI, POLYCLONAL ANTIBODY CORTISOL ASSAY. PERFORMED BY: [place] [address] PATHOLOGIST [employer] BOGDAN ZIMMERMAN M.D. Performed By: #### L IPID, FSH, A1C WTH eA, HSCRP, T4F, TSH3, CBC, CMP #### [address] #### LIPA, ESTRADIOL #### [facility] , Estradiolon 04-07-2024 Estradiol 243.0 pg/mL Normal . [facility] Comment on above: Result Comment: Adul t Female Range Follicular phase 12.5 - 166.0 Ovulation phase 85.8 - 498.0 Luteal phase 43.8 - 211.0 Postmenopausal <6.0 - 54.7 1st trimester 215.0 - >4300.0 Kathi ECLIA methodology Performed at: [facility] [employer] [id number] Manager Program: Damir Young PhD, Phone: [phone] PERFORMED BY: [place] [address] PATHOLOGIST [employer] BOGDAN ZIMMERMAN M.D. Performed By: #### L IPID, FSH, A1C WTH eA, HSCRP, T4F, TSH3, CBC, CMP #### [address] #### LIPA, ESTRADIOL #### [facility] , Follicle Stimulating Hormone on 04-07-2024 Follicle Stimulating Hormone 4.9 m[iU]/mL Normal [facility] Comment on above: Result Comment: FEMA LE NORMALS (PREMENOPAUSE) MID-FOLLICULAR PHASE: 3.9-8.8 mIU/mL MID-CYCLE PEAK: 4.5-22.5 mIU/mL MID-LUTEAL PHASE: 1.8-5.1 mIU/mL FEMALE NORMALS (POSTMENOPAUSE): 16.7-113.6 mIU/mL MALE NORMALS: 1.3-19.3 mIU/mL Performed By: #### L IPID, FSH, A1C WTH eA, HSCRP, T4F, TSH3, CBC, CMP #### [facility] [address] #### LIPA, ESTRADIOL #### [facility] , Follitropin [Units/volume] i n Serum or PlasmaOrdered By: Micheal Bowling on 04-07-2024 Follitropin Qn 4.9 m[IU]/mL [facility] Comment on above: FEMALE NORMALS (THIERNO ENOPAUSE) MID-FOLLICULAR PHASE: 3.9-8.8 mIU/mL MID-CYCLE PEAK: 4.5-22.5 mIU/mL MID-LUTEAL PHASE: 1.8-5.1 mIU/mLFEMALE NORMALS (POSTMENOPAUSE): 16.7-113.6 mIU/mLMALE NORMALS: 1.3-19.3 mIU/mL Random cortisol measurementO rdered By: Micheal Bowling on 04-07-2024 Cortisol [Mass/Vol] 12.5 ug/dL [facility] Comment on above: [facility] finishing range operator and method:REJI UNICEL DXI, POLYCLONAL ANTIBODY CORTISOL ASSAY.Reference range: AM 6 - 24 ug/dl PM <10 ug/dl Serum or plasma estradiol (E 2) measurement (mass/volume)Ordered By: Micheal Bowling on 04-07-2024 E2 [Mass/Vol] 243.0 pg/mL . [facility] Comment on above: Adult Female Range F ollicular phase 12.5 - 166.0 Ovulation phase 85.8 - 498.0 Luteal phase 43.8 - 211.0 Postmenopausal <6.0 - 54.7 1st trimester 215.0 - >4300.0Roche ECLIA methodologyPerformed at: - [facility] [address] [id number] Director: Damir Young PhD, Phone: [phone] Thyrotropin [Units/volume] i n Serum or PlasmaOrdered By: Micheal Bowling on 04-07-2024 TSH Qn 3.28 m[IU]/L Normal 0.45-5.33 [facility] Comment on above: Performed By: #### L IPID, FSH, A1C WTH eA, HSCRP, T4F, TSH3, CBC, CMP #### [facility] [address] [place] [address] [place] #### LIPA, ESTRADIOL #### [facility] , Thyroxine (T4) free [Mass/vo lume] in Serum or PlasmaOrdered By: Micheal Bowling on 04-07-2024 Free T4 [Mass/Vol] 0.86 ng/dL Normal 0.61-1.12 [facility] Comment on above: Performed By: #### L IPID, FSH, A1C WTH eA, HSCRP, T4F, TSH3, CBC, CMP #### [facility] [address] [place] [address] [place] #### LIPA, ESTRADIOL #### [facility] , Laboratory - Chemistry and C hemistry - challengeon 03-02-2024 Bilirubin Ql (U) Negative [facility] Glucose (U) [Mass/Vol] Negative [facility] Ketones Ql (U) Negative [facility] pH (U) 6.0 [pH] [facility] Specific gravity (U) [Rel density] 1.025 [facility] Urobilinogen (U) [Mass/Vol] 0.2 mg/dL [facility] Laboratory - Urinalysison Leukocyte esterase Test strip Ql (U) Negative [facility] Nitrite Ql (U) Negative [facility] Protein Ql (U) Negative [facility] No Panel Informationon 03-02 Urine Occult Blood Negative [facility] BI MAMMOGRAM SCREENING TOMOS YNTHESIS BILATERALon 01-12-2024 [...] IS VERY IMPORTANT TO YOUR HEALTH. THE [place] [employer] GUIDELINES RECOMMEND THAT WOMEN 40 [...] 11-22-22 NOM. Us or spot compression prn HbA1c HPLC (Bld) [Mass fract ion]on 11-28-2023 HbA1c (Bld) [Mass fraction] 5.8 % [facility] Basophils Auto (Bld) [#/Vol] Ordered By: Lamont Long on 09-05-2023 Basophils (Bld) [#/Vol] 0.1 10*3/uL 0.0-0.2 [facility] Basophils/100 WBC Auto (Bld) Ordered By: Lamont Long on 09-05-2023 Basophils/100 WBC (Bld) 0.7 % . [facility] C reactive protein [Mass/vol ume] in Serum or PlasmaOrdered By: Lamont Long on 09-05-2023 CRP [Mass/Vol] 1.1 mg/dL 0.0-0.5 [facility] Eosinophils Auto (Bld) [#/Vo l]Ordered By: Lamont Long on 09-05-2023 Eosinophils (Bld) [#/Vol] 0.4 10*3/uL 0.0-0.45 [facility] [facility] Eosinophils/100 WBC Auto (Bl d)Ordered By: Lamont Long on 09-05-2023 Eosinophils/100 WBC (Bld) 4.7 % . [facility] Erythrocyte distribution wid th Auto (RBC) [Ratio]Ordered By: Lamont Long on 09-05-2023 Erythrocyte distribution width (RBC) [Ratio] 13.2 % 11.9-15.3 [facility] Erythrocyte sedimentation ra te by Photometric methodOrdered By: Lamont Long on 09-05-2023 ESR Photometric method (Bld) [Velocity] 15 mm/hr 0-19 [facility] Hematocrit Auto (Bld) [Volum e fraction]Ordered By: Lamont Long on 09-05-2023 Hematocrit (Bld) [Volume fraction] 39.0 % 34.0-46.4 [facility] Hemoglobin [Mass/volume] in BloodOrdered By: Lamont Long on 09-05-2023 Hemoglobin (Bld) [Mass/Vol] 13.4 g/dL 11.8-15.4 [facility] Leukocytes [#/volume] correc brenda for nucleated erythrocytes in Blood by Automated counOrdered By: Lamont Long on 09-05-2023 WBC corrected for nucl RBC Auto (Bld) [#/Vol] 9.4 10*3/uL 3.8-11.6 [facility] Lymphocytes Auto (Bld) [#/Vo l]Ordered By: Lamont Long on 09-05-2023 Lymphocytes (Bld) [#/Vol] 2.9 10*3/uL 1.00-4.8 [facility] Lymphocytes/100 WBC Auto (Bl d)Ordered By: Lamont Long on 09-05-2023 Lymphocytes/100 WBC (Bld) 31.2 % . [facility] MCH Auto (RBC) [Entitic mass ]Ordered By: Lamont Long on 09-05-2023 MCH (RBC) [Entitic mass] 28.9 pg 24.7-34.3 [facility] MCHC Auto (RBC) [Mass/Vol]Or dered By: Lamont Long on 09-05-2023 MCHC (RBC) [Mass/Vol] 34.3 g/dL 32.0-35.0 [facility] MCV Auto (RBC) [Entitic vol] Ordered By: Lamont Long on 09-05-2023 MCV (RBC) [Entitic vol] 84.3 fL 80-100 [facility] Monocytes Auto (Bld) [#/Vol] Ordered By: Lamont Long on 09-05-2023 Monocytes (Bld) [#/Vol] 0.6 10*3/uL 0.0-0.8 [facility] Monocytes/100 WBC Auto (Bld) Ordered By: Lamont Long on 09-05-2023 Monocytes/100 WBC (Bld) 6.6 % . [facility] Neutrophils Auto (Bld) [#/Vo l]Ordered By: Lamont Long on 09-05-2023 Neutrophils (Bld) [#/Vol] 5.3 10*3/uL 1.8-7.7 [facility] Neutrophils/100 WBC Auto (Bl d)Ordered By: Lamont Long on 09-05-2023 Neutrophils/100 WBC (Bld) 56.8 % . [facility] Nucleated erythrocytes [Pres ence] in Blood by Automated countOrdered By: Lamont Long on 09-05-2023 Nucleated RBC Auto Ql (Bld) 0.1 /100{WBC} 0-0.5 [facility] Platelet mean volume Auto (B ld) [Entitic vol]Ordered By: Lamont Long on 09-05-2023 Platelet mean volume (Bld) [Entitic vol] 8.5 fL 6.3-10.7 [facility] Platelets Auto (Bld) [#/Vol] Ordered By: Lamont Long on 09-05-2023 Platelets (Bld) [#/Vol] 269 10*3/uL 150-450 [facility] RBC Auto (Bld) [#/Vol]Ordere d By: Lamont Long on 09-05-2023 RBC (Bld) [#/Vol] 4.63 10*6/uL 3.60-5.00 [facility] Serum homogeneous pattern an tinuclear antibody (DAYDAY) titerOrdered By: Lamont Long on 09-05-2023 Homogenous nuclear Ab pattern (S) [Titer] N/A [facility] Serum nuclear antibody titer Ordered By: Lamont Long on 09-05-2023 Nuclear Ab (S) [Titer] Negative . [facility] Comment on above: Negative <1:80 Borde rline 1:80 Positive >1:80ICAP nomenclature: AC-0For more information about Hep-2 cell patterns useANApatterns.org, the official website for theInternational Consensus on Antinuclear Antibody (DAYDAY)Patterns (ICAP).Performed at: [facility] [address] [place], [place] [id number] Director: Damir Young PhD, Phone: [phone] Serum or plasma cyclic adeno sine monophosphate measurement (moles/volume)Ordered By: Lamont Long on 09-05-2023 Adenosine monophosphate.cyclic [Moles/Vol] 7 units 0-19 [facility] Comment on above: Negative <20 Weak po sitive 20 - 39 Moderate positive 40 - 59 Strong positive >59Performed at: [facility] [address] [id number] Director: Damir Young PhD, Phone: [phone] Serum or plasma rheumatoid f actor measurement (units/volume)Ordered By: Lamont Long on 09-05-2023 Rheumatoid factor Qn 10.4 [IU]/mL <14.0 [facility] Comment on above: Performed at: [facility] [address] [id number] Director: Damir Young PhD, Phone: [phone] Urine 10 SGon 09-05-2023 Albumin DL <= 20 mg/L (U) [Mass/Vol] Negative [employer] Other pH (U) 5.5 [pH] [employer] Other Urine 10 SG Negative [employer] Other Urine 10 SG 1.020 [employer] Other Urine 10 SG 0.2 [employer] Other WBC Auto (Bld) [#/Vol]Ordere d By: Lamont Long on 09-05-2023 WBC (Bld) [#/Vol] 9.4 10*3/uL 3.8-11.6 [facility] XR KNEE 4+ VIEWS LEFTon 10-2 XR [...] 06-18-2023 ALT [Catalytic activity/Vol] 16 U/L 7-52 [facility] Albumin [Mass/volume] in Ser um or Plasma by Bromocresol green (BCG) dye binding methoOrdered By: Micheal Bowling on 06-18-2023 Albumin BCG dye [Mass/Vol] 4.5 g/dL 3.5-5.7 [facility] Alkaline phosphatase [Enzyma tic activity/volume] in Serum or PlasmaOrdered By: Micheal Bowling on 06-18-2023 ALP [Catalytic activity/Vol] 53 U/L 34-104 [facility] Aspartate aminotransferase [ Enzymatic activity/volume] in Serum or PlasmaOrdered By: Micheal Bowling on 06-18-2023 AST [Catalytic activity/Vol] 14 U/L 13-39 [facility] Basophils Auto (Bld) [#/Vol] Ordered By: Micheal Bowling on 06-18-2023 Basophils (Bld) [#/Vol] 0.1 10*3/uL 0.0-0.2 [facility] Basophils/100 WBC Auto (Bld) Ordered By: Micheal Bowling on 06-18-2023 Basophils/100 WBC (Bld) 0.7 % . [facility] Bilirubin.total [Mass/volume ] in Serum or PlasmaOrdered By: Micheal Bowling on 06-18-2023 Bilirubin [Mass/Vol] 0.8 mg/dL 0.3-1.0 [facility] Calcium [Mass/volume] in Ser um or PlasmaOrdered By: Micheal Bowling on 06-18-2023 Calcium [Mass/Vol] 9.5 mg/dL 8.6-10.3 [facility] Carbon dioxide, total [Moles /volume] in Serum or PlasmaOrdered By: Micheal Bowling on 06-18-2023 CO2 [Moles/Vol] 29.6 mmol/L 21.0-31.0 [facility] Chloride [Moles/volume] in S lilia or PlasmaOrdered By: Micheal Bowling on 06-18-2023 Chloride [Moles/Vol] 104 mmol/L 98-107 [facility] Cholesterol [Mass/volume] in Serum or PlasmaOrdered By: Micheal Bowling on 06-18-2023 Cholesterol [Mass/Vol] 156 mg/dL 140-200 [facility] Comment on above: Chol less than 200 m g/dl low riskChol 201-239 mg/dl borderline riskChol 240 mg/dl and greater high risk Cholesterol in LDL Calc [Mas s/Vol]Ordered By: Micheal Bowling on 06-18-2023 Cholesterol in LDL [Mass/Vol] 84 mg/dL 0-100 [facility] Comment on above: LDL ATP III CLASSIFI CATIONLDL less than 100 mg/dL OptimalLDL 100-129 mg/dL Near or above optimalLDL 130-159 mg/dL Borderline highLDL 160-189 mg/dL HighLDL greater than 189 mg/dL Very high Cholesterol in VLDL Calc [Ma ss/Vol]Ordered By: Micheal Bowling on 06-18-2023 Cholesterol in VLDL [Mass/Vol] 28 mg/dL [facility] Complete Blood Count Auto Di ffon 06-18-2023 Basophils (Bld) [#/Vol] 0.627939154 10*3/uL Normal 0.0-0.2 10*3/uL [employer] Other Basophils/100 WBC (Bld) 0.700 % . % N [employer] Other Eosinophils (Bld) [#/Vol] 0.098525770 10*3/uL High 0.0-0.45 10*3/uL [employer] Other Eosinophils/100 WBC (Bld) 4.400 % . % [employer] Other Erythrocyte distribution width (RBC) [Ratio] 13.200 % Normal 11.9-15.3 % [employer] Other Hematocrit (Bld) [Volume fraction] 41.300 % Normal 34.0-46.4 % [employer] Other Hemoglobin (Bld) [Mass/Vol] 13.791095 g/dL Normal 11.8-15.4 g/dL [employer] Other Lymphocytes (Bld) [#/Vol] 3.826209897 10*3/uL Normal 1.00-4.8 10*3/uL [employer] Other Lymphocytes/100 WBC (Bld) 28.800 % . % [employer] Other MCH (RBC) [Entitic mass] 28.0000 pg Normal 24.7-34.3 pg [employer] Other MCV (RBC) [Entitic vol] 84.7000 fL Normal 80-100 fL N [employer] Other Monocytes (Bld) [#/Vol] 0.461348971 10*3/uL Normal 0.0-0.8 10*3/uL [employer] Other Monocytes/100 WBC (Bld) 5.700 % . % [employer] Other Neutrophils (Bld) [#/Vol] 7.464947208 10*3/uL Normal 1.8-7.7 10*3/uL [employer] Other Neutrophils/100 WBC (Bld) 60.400 % . % [employer] Other Platelet mean volume (Bld) [Entitic vol] 8.5000 fL Normal 6.3-10.7 fL [employer] Other WBC (Bld) [#/Vol] 12.203103734 10*3/uL High 3. 8-11.6 10*3/uL [employer] Other Complete Blood Count Auto Diff 12.5 10*3/uL High 3.8-11.6 10*3/uL [employer] Other Complete Blood Count Auto Diff 33.1 g/dL Normal 32.0-35.0 g/dL [facility] [employer] Other Complete Blood Count Auto Diff 0.1 /100{WBC} Normal 0-0.5 /100{WBC} [facility] [employer] Other Complete Blood Count Auto Di ffOrdered By: Micheal Bowling on 06-18-2023 Platelets (Bld) [#/Vol] 284 10*3/uL 150-450 [facility] RBC (Bld) [#/Vol] 4.88 10*6/uL 3.60-5.00 [facility] Creatinine [Mass/volume] in Serum or PlasmaOrdered By: Micheal Bowling on 06-18-2023 Creatinine [Mass/Vol] 0.89 mg/dL 0.60-1.20 [facility] Eosinophils Auto (Bld) [#/Vo l]Ordered By: Micheal Bowling on 06-18-2023 Eosinophils (Bld) [#/Vol] 0.5 10*3/uL 0.0-0.45 [facility] Eosinophils/100 WBC Auto (Bl d)Ordered By: Micheal Bowling on 06-18-2023 Eosinophils/100 WBC (Bld) 4.4 % . [facility] Erythrocyte distribution wid th Auto (RBC) [Ratio]Ordered By: Micheal Bowling on 06-18-2023 Erythrocyte distribution width (RBC) [Ratio] 13.2 % 11.9-15.3 [facility] Follitropin [Units/volume] i n Serum or PlasmaOrdered By: Micheal Bowling on 06-18-2023 Follitropin Qn 3.2 m[IU]/mL [facility] Comment on above: FEMALE NORMALS (THIERNO ENOPAUSE) MID-FOLLICULAR PHASE: 3.9-8.8 mIU/mL MID-CYCLE PEAK: 4.5-22.5 mIU/mL MID-LUTEAL PHASE: 1.8-5.1 mIU/mLFEMALE NORMALS (POSTMENOPAUSE): 16.7-113.6 mIU/mLMALE NORMALS: 1.3-19.3 mIU/mL Globulin Calc (S) [Mass/Vol] Ordered By: Micheal Bowling on 06-18-2023 Globulin (S) [Mass/Vol] 2.6 g/dL [facility] Glucose [Mass/volume] in Ser um or PlasmaOrdered By: Micheal Bowling on 06-18-2023 Glucose [Mass/Vol] 90 mg/dL 70-100 [facility] Comment on above: ADA recommended refe rence rangeRandom Glucose Reference Range is dependent on time and content of last meal. Glucose of more than 200 mg/dL in a nonstressed, ambulatory subject supports the diagnosis of Diabetes Mellitus. Hematocrit Auto (Bld) [Volum e fraction]Ordered By: Micheal Bowling on 06-18-2023 Hematocrit (Bld) [Volume fraction] 41.3 % 34.0-46.4 [facility] Hemoglobin [Mass/volume] in BloodOrdered By: Micheal Bowling on 06-18-2023 Hemoglobin (Bld) [Mass/Vol] 13.7 g/dL 11.8-15.4 [facility] Leukocytes [#/volume] correc brenda for nucleated erythrocytes in Blood by Automated counOrdered By: Micheal Bowling on 06-18-2023 WBC corrected for nucl RBC Auto (Bld) [#/Vol] 12.5 10*3/uL 3.8-11.6 [facility] Lymphocytes Auto (Bld) [#/Vo l]Ordered By: Micheal Bowling on 06-18-2023 Lymphocytes (Bld) [#/Vol] 3.6 10*3/uL 1.00-4.8 [facility] Lymphocytes/100 WBC Auto (Bl d)Ordered By: Micheal Bowling on 06-18-2023 Lymphocytes/100 WBC (Bld) 28.8 % . [facility] MCH Auto (RBC) [Entitic mass ]Ordered By: Micheal Bowling on 06-18-2023 MCH (RBC) [Entitic mass] 28.0 pg 24.7-34.3 [facility] MCHC Auto (RBC) [Mass/Vol]Or dered By: Micheal Bowling on 06-18-2023 MCHC (RBC) [Mass/Vol] 33.1 g/dL 32.0-35.0 [facility] MCV Auto (RBC) [Entitic vol] Ordered By: Micheal Bowling on 06-18-2023 MCV (RBC) [Entitic vol] 84.7 fL 80-100 [facility] Monocytes Auto (Bld) [#/Vol] Ordered By: Micheal Bowling on 06-18-2023 Monocytes (Bld) [#/Vol] 0.7 10*3/uL 0.0-0.8 [facility] Monocytes/100 WBC Auto (Bld) Ordered By: Micheal Bowling on 06-18-2023 Monocytes/100 WBC (Bld) 5.7 % . [facility] Neutrophils Auto (Bld) [#/Vo l]Ordered By: Micheal Bowling on 06-18-2023 Neutrophils (Bld) [#/Vol] 7.6 10*3/uL 1.8-7.7 [facility] Neutrophils/100 WBC Auto (Bl d)Ordered By: Micheal Bowling on 06-18-2023 Neutrophils/100 WBC (Bld) 60.4 % . [facility] No Panel InformationOrdered By: Micheal Bowling on 06-18-2023 Estimated GFR (CKD-EPI) > 60.0 mL/Min [facility]acy Creatinine Clearance (Chem N/A [facility] Nucleated erythrocytes [Pres ence] in Blood by Automated countOrdered By: Micheal Bowling on 06-18-2023 Nucleated RBC Auto Ql (Bld) 0.1 /100{WBC} 0-0.5 [facility] Platelet mean volume Auto (B ld) [Entitic vol]Ordered By: Micheal Bowling on 06-18-2023 Platelet mean volume (Bld) [Entitic vol] 8.5 fL 6.3-10.7 [facility] Potassium [Moles/volume] in Serum or PlasmaOrdered By: Micheal Bowling on 06-18-2023 Potassium [Moles/Vol] 3.8 mmol/L 3.5-5.1 [facility] Protein [Mass/volume] in Ser um or PlasmaOrdered By: Micehal Bowling on 06-18-2023 Protein [Mass/Vol] 7.1 g/dL 6.4-8.9 [facility] Serum or plasma albumin/glob ulin mass ratioOrdered By: Micheal Bowling on 06-18-2023 Albumin/Globulin [Mass ratio] 1.7 {ratio} [facility] Serum or plasma anion gap de terminationOrdered By: Micheal Bowling on 06-18-2023 Anion gap [Moles/Vol] 9.2 mmol/L 6.0-15.0 [facility] Serum or plasma high density lipoprotein (HDL) cholesterol measurementOrdered By: Micheal Bowling on 06-18-2023 Cholesterol in HDL [Mass/Vol] 43 mg/dL 23-92 [facility] Comment on above: HDL CHOL ATP-III CLA SSIFICATION Cardiovascular RiskHDL > or equal to 60 mg/dL LOWHDL < 40 mg/dL HIGH Serum or plasma total choles terol/high density lipoprotein (HDL) cholesterol mass ratOrdered By: Micheal Bowling on 06-18-2023 Cholesterol.total/Spring sterol in HDL [Mass ratio] 3.6 {ratio} <5.0 [facility] Sodium [Moles/volume] in Ser um or PlasmaOrdered By: Micheal Bowling on 06-18-2023 Sodium [Moles/Vol] 139 mmol/L 136-145 [facility] Thyrotropin [Units/volume] i n Serum or PlasmaOrdered By: Micheal Bowling on 06-18-2023 TSH Qn 3.76 m[IU]/L 0.45-5.33 [facility] Triglyceride [Mass/volume] i n Serum or PlasmaOrdered By: Micheal Bowling on 06-18-2023 Triglyceride [Mass/Vol] 144 mg/dL 0-149 [facility] Comment on above: TRIG ATP III CLASSIF ICATIONTRIG less than 150 mg/dL NormalTRIG 150-199 mg/dL Borderline highTRIG 200-500 mg/dL High TRIG greater than 500 mg/dL Very highStandard traceable to the Center for Disease Conrtrol and Prevention (CDC) test method. Urea nitrogen [Mass/volume] in Serum or PlasmaOrdered By: Micheal Bowling on 06-18-2023 Urea nitrogen [Mass/Vol] 12 mg/dL 7 [facility] WBC Auto (Bld) [#/Vol]Ordere d By: Micheal Bowling on 06-18-2023 WBC (Bld) [#/Vol] 12.5 10*3/uL 3.8-11.6 [facility] Microalbumin Analyzeron 06-06 Albumin DL <= 20 mg/L (U) [Mass/Vol] mg/dL [employer] Other Albumin Test strip detection limit <= 20 mg/L (U) [Mass/Vol] 30 [employer] Other Creatinine (U) [Mass/Vol] 300 mg/dL [employer] Other Urine 10 SGon 06-16-2023 Albumin DL <= 20 mg/L (U) [Mass/Vol] 30 mg/dL [employer] Other Albumin DL <= 20 mg/L (U) [Mass/Vol] Negative [employer] Other pH (U) 6.0 [pH] [employer] Other Urine 10 SG Negative [employer] Other Urine 10 SG 1.030 [employer] Other Urine 10 SG 0.2 [employer] Other CHEMISTRYOrdered By: SYSTEM SYSTEM on 02-04-2023 Albumin [Mass/Vol] 4.1 g/dL Normal 3.3 - 5.0 gm/dL [facility] Albumin/Globulin [Mass ratio] 1.2 {ratio} Normal [...] 0.9 mg/dL Normal 0.5 - 1.3 mg/dL [facility] GFR/1.73 sq M.predicted among non-blacks MDRD (S/P/Bld) [Vol rate/Area] 80 mL/min/1.73 m2 Normal >=59mL/min/ 1.73 m2 [facility] Chem S Globulin (S) [Mass/Vol] 3.5 g/dL Normal 1.4 - 4.0 gm/dL [facility] Glucose [Mass/Vol] 101 mg/dL Normal 55 - 199 mg/dL [facility] Lipase [Catalytic activity/Vol] 48 U/L Normal 13 - 58 unit/L [facility] Potassium [Moles/Vol] 3.7 mmol/L Normal 3.5 - 5.3 mmol/L [facility] Protein [Mass/Vol] 7.6 g/dL Normal 6.0 - 7.8 gm/dL [facility]isol Sodium [Moles/Vol] 135 mmol/L Normal 135 - 145 mmol/L [facility] Urea nitrogen [Mass/Vol] 9 mg/dL Normal 5 - 21 mg/dL [facility]isol Urea nitrogen/Creatinine [Mass ratio] 10 mg/mg Normal 10 - 20 [facility] HEMATOLOGYOrdered By: SYSTEM SYSTEM on 02-04-2023 Basophils/100 [...] 12.0 E9/L High 4.0 - 11.0 E9/L [facility] HemeAutoSS URINALYSISOrdered By: Praful Benson on 02-04-2023 Bilirubin [...] PM) Normal Negative [facility] UA Auto SS Mathews.plasma/Mathews. RBC (Bld) [Mass ratio] 0-3 /HPF Normal [...] [facility] UA Auto SS Urobilinogen Qn (U) 0.2611582 {Melina'U}/dL Normal 0.0 - 1.0 EU/dL [facility] UA Auto SS WBC Auto Ql (U) Negative (02/04/23 8:13 PM) Normal Negative [facility] UA Auto SS WBC LM.HPF (Urine sed) [#/Area] 0-5 /HPF Normal 0-5/HPF [facility] UA Auto SS A1C HEMOGLOBINon 01-17-2023 HbA1c (Bld) [Mass fraction] 5.0 % [employer] Other HbA1c (Bld) [Mass fraction]o n 01-17-2023 A1C HEMOGLOBIN [employer] [facility] [employer] Other CARDIAC KRAIG ADMITon 023 CK [Catalytic activity/Vol] 70 U/L Normal 26-192 [facility] Comment on above: Performed By: #### I NFLUAB #### [facility] [address] [place] [address] Dr. Nathanael Freedman CK.MB [Mass/Vol] 0.96 ng/mL Normal <=3.60 [facility] Comment on above: Performed By: #### I NFLUAB #### [facility] [address] [place] [address] Dr. Nathanael Freedman HSTROP 6.9 pg/mL Normal 4.0-51.3 [facility] Comment on above: Result Comment: CUT- OFF POINTS HAVE BEEN ESTABLISHED BASED ON THE FOURTH UNIVERSAL DEFINITIONS OF MYOCARDIAL INFARCTION. THE UPPER REFERENCE LIMIT (URL) OF TROPONIN, DEFINED THE 99TH PERCENTILE OF cTnI DISTRIBUTION IN A REFERENCE POPULATION, HAS BEEN CONFIRMED THE DECISION THRESHOLD FOR AL DIAGNOSIS. Performed By: #### I NFLUAB #### [facility] [address] [address] [address] Nathanael Freedman STEFANIA 43 ng/mL Normal 9-82 [facility] Comment on above: Performed By: #### I NFLUAB #### [facility] [address] [place] [address] Dr. Nathanael Freedman CBC AUTO DIFFon 01-12-2023 BASO # 0.1 103/ul Normal 0.0-0.1 [facility] Comment on above: Performed By: #### C BC #### [facility] [address] [address] [address] Nathanael Freedman Basophils/100 WBC (Bld) 0.5 % Normal 0.2-2.0 [facility] Comment on above: Performed By: #### C BC #### [facility] [address] [address] [address] Nathanael Freedman EO # 0.1 103/ul Normal 0.0-0.7 [facility] Comment on above: Performed By: #### C BC #### [facility] [address] [address] [address] Nathanael Freedman Eosinophils/100 WBC (Bld) 1.0 % Normal 0.9-7.0 [facility] Comment on above: Performed By: #### C BC #### [facility] [address] [place] [address] Dr. Nathanael Freedman Erythrocyte distribution width (RBC) [Ratio] 12.6 % Normal 11.0-15.0 [facility] Comment on above: Performed By: #### C BC #### [facility] [address] [place] [address] Dr. Nathanael Freedman Hematocrit (Bld) [Volume fraction] 41.5 % Normal 36.0-48.0 [facility] Comment on above: Performed By: #### C BC #### [facility] [address] [place] [address] Dr. Nathanael Freedman Hemoglobin (Bld) [Mass/Vol] 14.4 g/dL Normal 12.0-16.0 [facility] Comment on above: Performed By: #### C BC #### [facility] [address] [place] [address] Dr. Nathanael Freedman IG # 0.07 10e3/ul Critically high 0.00-0.03 [facility] Comment on above: Performed By: #### C BC #### [facility] [address] [address] [address] Nathanael Freedman IG % 0.6 % Critically high 0.0-0.5 [facility] Comment on above: Performed By: #### C BC #### [facility] [address] [address] [address] Nathanael Freedman LYMPH # 2.3 103/ul Normal 1.2-3.8 [facility] Comment on above: Performed By: #### C BC #### [facility] [address] [address] [address] Nathanael Freedman Lymphocytes/100 WBC (Bld) 18.1 % Critically low 20.5-60.0 [facility] Comment on above: Performed By: #### C BC #### [facility] [address] [place] [address] Dr. Nathanael Freedman MANUAL DIFF REQ NO Normal [facility] Comment on above: Performed By: #### C BC #### [facility] [address] [place] [address] Dr. Nathanael Freedman MCH (RBC) [Entitic mass] 28.6 pg Normal 26.7-34.0 [facility] Comment on above: Performed By: #### C BC #### [facility] [address] [place] [address] Dr. Nathanael Freedman MCHC (RBC) [Mass/Vol] 34.7 g/dL Normal 29.9-35.2 [facility] Comment on above: Performed By: #### C BC #### [facility] [address] [place] [address] Dr. Nathanael Freedman MCV (RBC) [Entitic vol] 82.3 fL Normal 81.0-99.0 [facility] Comment on above: Performed By: #### C BC #### [facility] [address] [place] [address] Dr. Nathanael Freedman MONO # 0.6 103/ul Normal 0.3-0.8 [facility] Comment on above: Performed By: #### C BC #### [facility] [address] [place] [address] Dr. Nathanael Freedman Monocytes/100 WBC (Bld) 4.8 % Normal 1.7-12.0 [facility] Comment on above: Performed By: #### C BC #### [facility] [address] [address] [address] Nathanael Freedman NEUT # 9.3 103/ul Critically high 1.4-6.5 [facility] Comment on above: Performed By: #### C BC #### [facility] [address] [address] [address] Nathanael Freedman Neutrophils/100 WBC (Bld) 75.0 % Normal 43.0-75.0 [facility] Comment on above: Performed By: #### C BC #### [facility] [address] [address] [address] Nathanael Freedman Platelet mean volume (Bld) [Entitic vol] 9.6 fL Normal 9.5-13.5 [facility] Comment on above: Performed By: #### C BC #### [facility] [address] [place] [address] Dr. Nathanael Freedman PLT 332 103/ul Normal 150-450 [facility] Comment on above: Performed By: #### C BC #### [facility] [facility] [address] [place] [address] Dr. Nathanael Freedman RBC 5.04 106/ul Normal 4.20-5.40 [facility] Comment on above: Performed By: #### C BC #### [facility] [address] [place] [address] Dr. Nathanael Freedman WBC 12.4 103/ul Critically high 4.0-11.0 [facility] Comment on above: Performed By: #### C BC #### [facility] [address] [place] [address] Dr. Nathanael Freedman MAGNESIUMon 01-12-2023 Magnesium [Mass/Vol] 1.9 mg/dL Normal 1.8-2.4 [facility] Comment on above: Performed By: #### I NFLUAB #### [facility] [address] [place] [address] Dr. Nathanael Freedman PROF 14(COMP METB)on 023 Albumin [Mass/Vol] 4.1 g/dL Normal 3.4-5.0 [facility] Comment on above: Performed By: #### I NFLUAB #### [facility] [address] [address] [address] Nathanael Freedman Albumin/Globulin [Mass ratio] 1.1 {ratio} Normal [facility] Comment on above: Performed By: #### I NFLUAB #### [facility] [address] [address] [address] Nathanael Freedman ALP [Catalytic activity/Vol] 69 U/L Normal 46-116 [facility] Comment on above: Performed By: #### I NFLUAB #### [facility] [address] [address] [address] Nathanael Freedman ALT [Catalytic activity/Vol] 47 U/L Normal 14-59 [facility] Comment on above: Performed By: #### I NFLUAB #### [facility] [address] [address] [address] Nathanael Freedman Anion gap [Moles/Vol] 13.7 mmol/L Normal [facility] Comment on above: Performed By: #### I NFLUAB #### [facility] [address] [address] [address] Nathanael Freedman AST [Catalytic activity/Vol] 33 U/L Normal 15-37 [facility] Comment on above: Performed By: #### I NFLUAB #### [facility] [address] [address] [address] Nathanael Freedman Bilirubin [Mass/Vol] 0.7 mg/dL Normal 0.2-1.0 [facility] Comment on above: Performed By: #### I NFLUAB #### [facility] [address] [address] [address] Nathanael Freedman Calcium [Mass/Vol] 9.2 mg/dL Normal 8.5-10.1 [facility] Comment on above: Performed By: #### I NFLUAB #### [facility] [address] [address] [address] Nathanael Freedman Chloride [Moles/Vol] 102 mmol/L Normal 98-107 [facility] Comment on above: Performed By: #### I NFLUAB #### [facility] [address] [address] [address] Nathanael Freedman CO2 [Moles/Vol] 27.0 mmol/L Normal 21.0-32.0 [facility] Comment on above: Performed By: #### I NFLUAB #### [facility] [address] [address] [address] Nathanael Freedman Creatinine [Mass/Vol] 0.86 mg/dL Normal 0.55-1.02 [facility] Comment on above: Performed By: #### I NFLUAB #### [facility] [address] [address] [address] Nathanael Freedman EGFR-AF SCOTTISH >60 Normal >=60 [facility] Comment on above: Performed By: #### I NFLUAB #### [facility] [address] [address] [address] Nathanael Freedman EGFR-NON AF SCOTTISH >60 Normal >=60 [facility] Comment on above: Performed By: #### I NFLUAB #### [facility] [address] [address] [address] Nathanael Freedman Globulin (S) [Mass/Vol] 3.6 g/dL Normal [facility] Comment on above: Performed By: #### I NFLUAB #### [facility] [address] [address] [address] Nathanael Freedman Glucose [Mass/Vol] 111 mg/dL Critically high 74-106 [facility] Comment on above: Performed By: #### I NFLUAB #### [facility] [address] [address] [address] Nathanael Freedman Potassium [Moles/Vol] 3.7 mmol/L Normal 3.5-5.1 [facility] Comment on above: Performed By: #### I NFLUAB #### [facility] [address] [address] [address] Nathanael Freedman Protein [Mass/Vol] 7.7 g/dL Normal 6.4-8.2 [facility] Comment on above: Performed By: #### I NFLUAB #### [facility] [address] [address] [address] Nathanael Freedman Sodium [Moles/Vol] 139 mmol/L Normal 136-145 [facility] Comment on above: Performed By: #### I NFLUAB #### [facility] [address] [address] [address] Nathanael Freedman Urea nitrogen [Mass/Vol] 6.0 mg/dL Critically low 7.0-18.0 [facility] Comment on above: Performed By: #### I NFLUAB #### [facility] [address] [address] [address] Nathanael Freedman Urea nitrogen/Creatinine [Mass ratio] 7.0 mg/mg Normal [facility] Comment on above: Performed By: #### I NFLUAB #### [facility] [address] [address] [address] Nathanael Freedman TROPONIN, HIGH SENSITIVITYon 01-12-2023 HSTROP 7.0 pg/mL Normal 4.0-51.3 [facility] Comment on above: Result Comment: CUT- OFF POINTS HAVE BEEN ESTABLISHED BASED ON THE FOURTH UNIVERSAL DEFINITIONS OF MYOCARDIAL INFARCTION. THE UPPER REFERENCE LIMIT (URL) OF TROPONIN, DEFINED THE 99TH PERCENTILE OF cTnI DISTRIBUTION IN A REFERENCE POPULATION, HAS BEEN CONFIRMED THE DECISION THRESHOLD FOR AL DIAGNOSIS. Performed By: #### H STROPN #### [facility] [address] [address] [address] Nathanael Freedman COVID/FLU/RSV RT-PCRon 12-16 SARS-CoV-2 (COVID-19) RNA KIRTI+probe Ql (Unsp spec) Positive [employer] Other COVID/FLU/RSV RT-PCR Negative [facility] Other CT Chest w/o Contraston 10-07 CT [...] by Brown Alvarenga on 11/01/2022 1556 Normal [facility] Special[facility] COVID + FLU Quick Testingon 10-04-2022 SARS-CoV-2 (COVID-19) RNA KIRTI+probe Ql (Unsp spec) Negative [facility] Other COVID + FLU Quick Testing Negative [facility] Other CBC AUTO DIFFon 09-18-2022 BASO # 0.1 103/ul Normal 0.0-0.1 [facility] Comment on above: Performed By: #### C BC #### [facility] [address] [place] [address] Dr. Nathanael Freedman Basophils/100 WBC (Bld) 0.7 % Normal 0.2-2.0 [facility] Comment on above: Performed By: #### C BC #### [facility] [address] [place] [address] Dr. Nathanael Freedman EO # 0.4 103/ul Normal 0.0-0.7 [facility] Comment on above: Performed By: #### C BC #### [facility] [address] [place] [address] Dr. Nathanael Freedman Eosinophils/100 WBC (Bld) 4.8 % Normal 0.9-7.0 [facility] Comment on above: Performed By: #### C BC #### [facility] [address] [place] [address] Dr. Nathanael Freedman Erythrocyte distribution width (RBC) [Ratio] 11.9 % Normal 11.0-15.0 [facility] Comment on above: Performed By: #### C BC #### [facility] [address] [address] [address] Nathanael Freedman Hematocrit (Bld) [Volume fraction] 38.2 % Normal 36.0-48.0 [facility] Comment on above: Performed By: #### C BC #### [facility] [address] [place] [address] Dr. Nathanael Freedman Hemoglobin (Bld) [Mass/Vol] 13.3 g/dL Normal 12.0-16.0 [facility] Comment on above: Performed By: #### C BC #### [facility] [address] [place] [address] Dr. Nathanael Freedman IG # 0.05 10e3/ul Critically high 0.00-0.03 [facility] Comment on above: Performed By: #### C BC #### [facility] [address] [place] [address] Dr. Nathanael Freedman IG % 0.7 % Critically high 0.0-0.5 [facility] Comment on above: Performed By: #### C BC #### [facility] [address] [place] [address] Dr. Nathanael Freedman LYMPH # 0.5 103/ul Critically low 1.2-3.8 [facility] Comment on above: Performed By: #### C BC #### [facility] [address] [place] [address] Dr. Nathanael Freedman Lymphocytes/100 WBC (Bld) 6.3 % Critically low 20.5-60.0 [facility] Comment on above: Performed By: #### C BC #### [facility] [address] [place] [address] Dr. Nathanael Freedman MANUAL DIFF REQ NO Normal [facility] Comment on above: Performed By: #### C BC #### [facility] [address] [place] [address] Dr. Nathanael Freedman MCH (RBC) [Entitic mass] 28.9 pg Normal 26.7-34.0 [facility] Comment on above: Performed By: #### C BC #### [facility] [address] [place] [address] Dr. Nathanael Freedman MCHC (RBC) [Mass/Vol] 34.8 g/dL Normal 29.9-35.2 [facility] Comment on above: Performed By: #### C BC #### [facility] [address] [place] [address] Dr. Nathanael Freedman MCV (RBC) [Entitic vol] 82.9 fL Normal 81.0-99.0 [facility] Comment on above: Performed By: #### C BC #### [facility] [address] [place] [address] Dr. Nathanael Freedman MONO # 0.5 103/ul Normal 0.3-0.8 [facility] Comment on above: Performed By: #### C BC #### [facility] [address] [place] [address] Dr. Nathanael Freedman Monocytes/100 WBC (Bld) 6.5 % Normal 1.7-12.0 [facility] Comment on above: Performed By: #### C BC #### [facility] [address] [place] [address] Dr. Nathanael Freedman NEUT # 6.1 103/ul Normal 1.4-6.5 [facility] Comment on above: Performed By: #### C BC #### [facility] [address] [place] [address] Dr. Nathanael Freedman Neutrophils/100 WBC (Bld) 81.0 % Critically high 43.0-75.0 [facility] Comment on above: Performed By: #### C BC #### [facility] [address] [place] [address] Dr. Nathanael Freedman Platelet mean volume (Bld) [Entitic vol] 9.9 fL Normal 9.5-13.5 [facility] Comment on above: Performed By: #### C BC #### [facility] [address] [place] [address] Dr. Nathanael Freedman PLT 237 103/ul Normal 150-450 [facility] Comment on above: Performed By: #### C BC #### [facility] [address] [place] [address] Dr. Nathanael Freedman RBC 4.61 106/ul Normal 4.20-5.40 [facility] Comment on above: Performed By: #### C BC #### [facility] [address] [place] [address] Dr. Nathanael Freedman WBC 7.5 103/ul Normal 4.0-11.0 [facility] Comment on above: Performed By: #### C BC #### [facility] [address] [place] [address] Dr. Nathanael Freedman CULTURE BLOODon 09-18-2022 Microscopic examination of blood, culture Culture Observations: NO GROWTH AT 5 DAYS. Normal [facility] Comment on above: Performed By: #### C VDTBH #### [facility] [address] [place] [address] Dr. Nathanael Freedman Microscopic examination of blood, culture Culture Observations: NO GROWTH AT 5 DAYS. Normal [facility] Comment on above: Performed By: #### C VDTBH #### [facility] [address] [place] [address] Dr. Nathanael Freedman Covid-19 PCR ([facility])on 09-05 SARS-CoV-2 (COVID-19) RNA KIRTI+probe Ql (Unsp spec) Not detected Normal NOT DETECTED [facility] Comment on above: Result Comment: This test is not yet approved or cleared by the [place] FDA. When there are no FDA-approved or cleared tests available, and other criteria are met, FDA can make tests available under an emergency access mechanism called an Emergency Use Authorization (EUA). The EUA for this test is supported by the [place] of Health and Human Service's (HHS's) declaration [...] SARS-CoV-2. Performed By: #### C VDTB #### [facility] [address] [place] [address] Dr. Nathanael Freedman ER URINE PROFILEon 2 Bilirubin Ql (U) Negative Normal NEGATIVE [facility] Comment on above: Performed By: #### E RUR, UMICRO #### [facility] [address] [place] [address] Dr. Nathanael Freedman Clarity (U) CLEAR Normal CLEAR [facility] Comment on above: Performed By: #### E RUR, UMICRO #### [facility] [address] [place] [address] Dr. Nathanael Freedman Color (U) LT. YELLOW Normal YELLOW [facility] Comment on above: Performed By: #### E RUR, UMICRO #### [facility] [address] [place] [address] Dr. Nathanael FUNES A micrscopic examination will be performed if indicated. Normal [facility] Comment on above: Performed By: #### E RUR, UMICRO #### [facility] [address] [place] [address] Dr. Nathanael Freedman Glucose Ql (U) Negative Normal NEGATIVE [facility] Comment on above: Performed By: #### E RUR, UMICRO #### [facility] [address] [place] [address] Dr. Nathanael Freedman Hemoglobin Ql (U) TRACE-LYSED Abnormal NEGATIVE [facility] Comment on above: Performed By: #### E RUR, UMICRO #### [facility] [address] [place] [address] Dr. Nathanael Freedman Ketones Ql (U) Negative Normal NEGATIVE [facility] Comment on above: Performed By: #### E RUR, UMICRO #### [facility] [address] [place] [address] Dr. Nathanael Freedman LEUKOCYTES Negative Normal NEGATIVE [facility] Comment on above: Performed By: #### FABIOLA GARCIARO #### [facility] [address] [place] [address] Dr. Nathanael Freedman Nitrite Ql (U) Negative Normal NEGATIVE [facility] Comment on above: Performed By: #### FABIOLA GARCIARO #### [facility] [address] [place] [address] Dr. Nathanael Freedman pH (U) 6.5 [pH] Normal 5-9 [facility] Comment on above: Performed By: #### FABIOLA GARCIARO #### [facility] [address] [place] [address] Dr. Nathanael Freedman SPEC GRAVITY 1.010 Normal 1.005-<=1.0 25 [facility] Comment on above: Performed By: #### FABIOLA GARCIARO #### [facility] [address] [place] [address] Dr. Nathanael Freedman UA PROTEIN Negative Normal NEGATIVE/ TRACE [facility] Comment on above: Performed By: #### FABIOLA GARCIARO #### [facility] [address] [place] [address] Dr. Nathanael Freedman UR MICRO IND INDICATED Normal [facility] Comment on above: Performed By: #### NIALL GARCIA #### [facility] [address] [place] [address] Dr. Nathanael Freedman Urobilinogen Qn (U) 0.2 {Melina'U}/dL Normal 0.2 - 1. 0 [facility] Comment on above: Performed By: #### FABIOLA GARCIARO #### [facility] [address] [place] [address] Dr. Nathanael Freedman INFLUENZA A AND B AGon 09-18 INFLUANEGH SEE BELOW Normal [facility] Comment on above: Result Comment: Nega tive for Flu A protein angiten. Infection due to Flu A cannot be ruled out. Flu A angiten in the sample may be below the detection limit of the test. Performed By: #### I NFLUAB #### [facility] [address] [place] [address] [facility] SEE BELOW Normal [facility] Comment on above: Result Comment: Nega tive for Flu B protein antigen. Infection due to Flu B cannot be ruled out. Flu B antigen in the sample may be below the detection limit of the test. Performed By: #### I NFLUAB #### [facility] [address] [place] [address] Dr. Nathanael Freedman INFLUENZA A AG Negative Normal NEGATIVE SEE COMMENT [facility] Comment on above: Performed By: #### I NFLUAB #### [facility] [address] [place] [address] Dr. Nathanael Freedman INFLUENZA B AG Negative Normal NEGATIVE SEE COMMENT [facility] Comment on above: Performed By: #### I NFLUAB #### [facility] [address] [place] [address] Dr. Nathanael Freedman INTERNAL CONTROLS Within Normal Limits Normal Wi thin Normal Limits [facility] Comment on above: Performed By: #### I NFLUAB #### [facility] [address] [place] [address] Dr. Nathanael Freedman LACTATE/LACTIC ACIDon 2021 Lactate [Moles/Vol] 1.0 mmol/L Normal 0.4-1.9 [facility] Comment on above: Performed By: #### I NFLUAB #### [facility] [address] [place] [address] Dr. Nathanael Freedman PROF 14(COMP METB)on 022 Albumin [Mass/Vol] 4.0 g/dL Normal 3.4-5.0 [facility] Comment on above: Performed By: #### I NFLUAB #### [facility] [address] [place] [address] Dr. Nathanael Freedman Albumin/Globulin [Mass ratio] 1.1 {ratio} Normal [facility] Comment on above: Performed By: #### I NFLUAB #### [facility] [address] [address] [address] Nathanael Freedman ALP [Catalytic activity/Vol] 62 U/L Normal 46-116 [facility] Comment on above: Performed By: #### I NFLUAB #### [facility] [address] [address] [address] Nathanael Freedman ALT [Catalytic activity/Vol] 31 U/L Normal 14-59 [facility] Comment on above: Performed By: #### I NFLUAB #### [facility] [address] [address] [address] Nathanael Freedman Anion gap [Moles/Vol] 15.0 mmol/L Normal [facility] Comment on above: Performed By: #### I NFLUAB #### [facility] [address] [address] [address] Nathanael Freedman AST [Catalytic activity/Vol] 33 U/L Normal 15-37 [facility] Comment on above: Performed By: #### I NFLUAB #### [facility] [address] [address] [address] Nathanael Freedman Bilirubin [Mass/Vol] 0.5 mg/dL Normal 0.2-1.0 [facility] Comment on above: Performed By: #### I NFLUAB #### [facility] [address] [address] [address] Nathanael Freedman Calcium [Mass/Vol] 9.2 mg/dL Normal 8.5-10.1 [facility] Comment on above: Performed By: #### I NFLUAB #### [facility] [address] [address] [address] Nathanael Freedman Chloride [Moles/Vol] 99 mmol/L Normal 98-107 [facility] Comment on above: Performed By: #### I NFLUAB #### [facility] [address] [address] [address] Nathanael Freedman CO2 [Moles/Vol] 27.0 mmol/L Normal 21.0-32.0 [facility] Comment on above: Performed By: #### I NFLUAB #### [facility] [address] [address] [address] Nathanael Freedman Creatinine [Mass/Vol] 0.86 mg/dL Normal 0.55-1.02 [facility] Comment on above: Performed By: #### I NFLUAB #### [facility] [address] [address] [address] Nathanael Freedman EGFR-AF SCOTTISH >60 Normal >=60 [facility] Comment on above: Performed By: #### I NFLUAB #### [facility] [address] [place] [address] Dr. Nathanael Freedman EGFR-NON AF SCOTTISH >60 Normal >=60 [facility] Comment on above: Performed By: #### I NFLUAB #### [facility] [address] [place] [address] Dr. Nathanael Freedman Globulin (S) [Mass/Vol] 3.8 g/dL Normal [facility] Comment on above: Performed By: #### I NFLUAB #### [facility] [address] [place] [address] Dr. Nathanael Freedman Glucose [Mass/Vol] 106 mg/dL Normal 74-106 [facility] Comment on above: Performed By: #### I NFLUAB #### [facility] [address] [place] [address] Dr. Nathanael Freedman Potassium [Moles/Vol] 4.0 mmol/L Normal 3.5-5.1 [facility] Comment on above: Performed By: #### I NFLUAB #### [facility] [address] [place] [address] Dr. Nathanael Freedman Protein [Mass/Vol] 7.8 g/dL Normal 6.4-8.2 [facility] Comment on above: Performed By: #### I NFLUAB #### [facility] [address] [place] [address] Dr. Nathanael Freedman Sodium [Moles/Vol] 137 mmol/L Normal 136-145 [facility] Comment on above: Performed By: #### I NFLUAB #### [facility] [address] [place], [place] [address] Dr. Nathanael Freedman Urea nitrogen [Mass/Vol] 8.0 mg/dL Normal 7.0-18.0 [facility] Comment on above: Performed By: #### I NFLUAB #### [facility] [address] [place] [address] Dr. Nathanael Freedman Urea nitrogen/Creatinine [Mass ratio] 9.3 mg/mg Normal [facility] Comment on above: Performed By: #### I NFLUAB #### [facility] [address] [place] [address] Dr. Nathanael Freedman URINE MICROSCOPIC ONLYon BACTERIA TRACE Abnormal NONE SEEN [facility] Comment on above: Performed By: #### Savanah DURAN UMICRO #### [facility] [address] [place] [address] Dr. Nathanael Freedman Bacteria identified Cx Nom (U) NOT INDICATED Normal [facility] Comment on above: Performed By: #### Savanah DURAN UMICRO #### [facility] [address] [place] [address] Dr. Nathanael Freedman CAST NONE SEEN Normal NONE SEEN [facility] Comment on above: Performed By: #### Savanah DURAN UMICRO #### [facility] [address] [place] [address] Dr. Nathanael Freedman Crystals LM Nom (Urine sed) NONE SEEN Normal NONE SEEN [facility] Comment on above: Performed By: #### Savanah DURAN UMICRO #### [facility] [address] [place] [address] Dr. Nathanael Freedman Epithelial cells LM Ql (Urine sed) MODERATE Abnormal NONE SEEN /RARE [facility] Comment on above: Performed By: #### Savanah DURAN UMICRO #### [facility] [address] [place] [address] Dr. Nathanael Freedman MUCOUS TRACE Abnormal NONE SEEN [facility] Comment on above: Performed By: #### Savanah DURAN UMICRO #### [facility] [address] [place] [address] Dr. Nathanael Freedman RBC 2-5 Abnormal 0-2 [facility] Comment on above: Performed By: #### E ERASMOR, NIALL #### [facility] [address] [address] [address] Nathanael Freedman WBC 0-2 Abnormal NONE SEEN [facility] Comment on above: Performed By: #### E ERASMOR, NIALL #### [facility] [address] [address] [address] Nathanael Freedman Creatinine and Glomerular fi ltration rate.predicted panel (S/P/Bld)Ordered By: Jr Mancini on 09-13-2022 Creatinine [Mass/Vol] 0.75 mg/dL 0.44-1.03 [facility] Estimated glomerular filtrat ion rate (GFR) non- AmericanOrdered By: Jr Mancini on 09-13-2022 GFR/1.73 sq M.predicted among non-blacks MDRD (S/P/Bld) [Vol rate/Area] > 60 mL/Min [facility] No Panel InformationOrdered By: Jr Mancini on 09-13-2022 Estimated GFR () > 60 mL/Min [facility] Comment on above: GFR estimated refere nce range: According to KDOQI guidelines, <60 ml/min/1.73m2 is sufficient to diagnose a patient with chronic kidney disease. Pharmacy Creatinine Clearance (Chem 87.86 [facility] Serum or plasma anion gap de terminationOrdered By: Jr Mancini on 09-13-2022 Anion gap [Moles/Vol] 9.4 mmol/L 6.0-15.0 [facility] Serum or plasma calcium jermain urement (mass/volume)Ordered By: Jr Mancini on 09-13-2022 Calcium [Mass/Vol] 8.8 mg/dL 8.2-10.2 [facility] Serum or plasma chloride jurgen surement (moles/volume)Ordered By: Jr Mancini on 09-13-2022 Chloride [Moles/Vol] 106 mmol/L 95-114 [facility] Serum or plasma glucose jermain urement (mass/volume)Ordered By: Jr Mancini on 09-13-2022 Glucose [Mass/Vol] 110 mg/dL 70-100 [facility] Comment on above: ADA recommended refe rence rangeRandom Glucose Reference Range is dependent on time and content of last meal. Glucose of more than 200 mg/dL in a nonstressed, ambulatory subject supports the diagnosis of Diabetes Mellitus. Serum or plasma potassium me asurement (moles/volume)Ordered By: Jr Mancini on 09-13-2022 Potassium [Moles/Vol] 3.6 mmol/L 3.5-5.1 [facility] Serum or plasma sodium measu rement (moles/volume)Ordered By: Jr Mancini on 09-13-2022 Sodium [Moles/Vol] 136 mmol/L 136-146 [facility] Serum or plasma total carbon dioxide measurement (moles/volume)Ordered By: Jr Mancini on 09-13-2022 CO2 [Moles/Vol] 24.2 mmol/L 22.0-30.0 [facility] Serum or plasma urea nitroge n measurement (mass/volume)Ordered By: Jr Mancini on 09-13-2022 Urea nitrogen [Mass/Vol] 8 mg/dL 9-23 [facility] C reactive protein [Mass/vol ume] in Serum or PlasmaOrdered By: Micheal Bowling on 05-15-2022 CRP [Mass/Vol] 1.1 mg/dL 0.0-1.0 [facility] Erythrocyte sedimentation ra te by Photometric methodOrdered By: Micheal Bowling on 05-15-2022 ESR Photometric method (Bld) [Velocity] 12 mm/hr 0-19 [facility] Serum nuclear antibody titer Ordered By: Micheal Bowling on 05-15-2022 Nuclear Ab (S) [Titer] Negative . [facility] Comment on above: Negative <1:80 Borderline 1:80 Positive >1:80 ICAP nomenclature: AC-0 For more information about Hep-2 cell patterns use ANApatterns.org, the official website for the International Consensus on Antinuclear Antibody (DAYDAY) Patterns (ICAP). Performed at: [address] [id number] Manager Program: Damir Young PhD, Phone: [phone] Serum or plasma rheumatoid f actor measurement (units/volume)Ordered By: Micheal Bowling on 05-15-2022 Rheumatoid factor Qn [IU]/mL <14.0 [facility] Comment on above: Performed at: [address] [id number] Manager Program: Damir Young PhD, Phone: [phone] Serum or plasma uric acid me asurement (mass/volume)Ordered By: Micheal Bowling on 05-15-2022 Urate [Mass/Vol] 4.4 mg/dL 2.6-7.2 [facility] CBC W MANUAL DIFFon 03-20-20 22 ATYPICAL LYMPH # Normal [facility] Comment on above: Performed By: #### C VDTBH #### [facility] [address] [place] [address] Dr. Nathanael Freedman ATYPICAL LYMPH % Normal [facility] Comment on above: Performed By: #### C VDTBH #### [facility] [address] [place] [address] Dr. Nathanael Freedman BAND # 0.1 103/ul Normal 0.0-0.3 [facility] Comment on above: Performed By: #### C VDTBH #### [facility] [address] [place] [address] Dr. Nathanael Freedman BAND % 2 % Normal 0-5 [facility] Comment on above: Performed By: #### C VDTBH #### [facility] [address] [place] [address] Dr. Nathanael Freedman BASOM # 0.00 103/ul Normal 0.00-0.10 [facility] Comment on above: Performed By: #### C VDTBH #### [facility] [address] [place] [address] Dr. Nathanael Freedman BASOM % 0.0 % Critically low 0.2-2.0 [facility] Comment on above: Performed By: #### C VDTBH #### [facility] [address] [place] [address] Dr. Nathanael Freedman BLAST # Normal [facility] Comment on above: Performed By: #### C VDTBH #### [facility] [address] [place] [address] Dr. Nathanael Freedman BLAST % Normal [facility] Comment on above: Performed By: #### C VDTBH #### [facility] [address] [place] [address] Dr. Nathanael Freedman CORRECTED WBC Normal 4.0-11.0 [facility] Comment on above: Performed By: #### C VDTBH #### [facility] [address] [place] [address] Dr. Nathanael Freedman EOS # 0.13 103/ul Normal 0.00-0.70 [facility] Comment on above: Performed By: #### C VDTBH #### [facility] [address] [place] [address] Dr. Nathanael Freedman EOS% 2.0 % Normal 0.9-7.0 [facility] Comment on above: Performed By: #### C VDTBH #### [facility] [address] [place] [address] Dr. Nathanael Freedman HCT 37.3 % Normal 36.0-48.0 [facility] Comment on above: Performed By: #### C VDTBH #### [facility] [address] [place] [address] Dr. Nathanael Freedman HGB 12.5 g/dl Normal 12.0-16.0 [facility] Comment on above: Performed By: #### C VDTBH #### [facility] [address] [place] [address] Dr. Nathanael Freedman LYMPHM # 0.50 103/ul Critically low 1.20-3.80 [facility] Comment on above: Performed By: #### C VDTBH #### [facility] [address] [place] [address] Dr. Nathanael Freedman LYMPHM% 8.0 % Critically low 20.5-60.0 [facility] Comment on above: Performed By: #### C VDTBH #### [facility] [address] [place] [address] Dr. Nathanael Freedman MCH 29.0 pg Normal 26.7-34.0 [facility] Comment on above: Performed By: #### C VDTBH #### [facility] [address] [place] [address] Dr. Nathanael Freedman MCHC 33.5 g/dl Normal 29.9-35.2 [facility] Comment on above: Performed By: #### C VDTBH #### [facility] [address] [place] [address] Dr. Nathanael Freedman MCV 86.5 fL Normal 81.0-99.0 [facility] Comment on above: Performed By: #### C VDTBH #### [facility] [address] [place] [address] Dr. Nathanael Freedman METAMYELOCYTE # Normal [facility] Comment on above: Performed By: #### C VDTBH #### [facility] [address] [place] [address] Dr. Nathanael Freedman METAMYELOCYTE % Normal [facility] Comment on above: Performed By: #### C VDTBH #### [facility] [address] [place] [address] Dr. Nathanael Freedman MONOM# 0.19 103/ul Critically low 0.30-0.80 [facility] Comment on above: Performed By: #### C VDTBH #### [facility] [address] [place] [address] Dr. Nathanael Freedman MONOM% 3.0 % Normal 1.7-12.0 [facility] Comment on above: Performed By: #### C VDTBH #### [facility] [address] [place] [address] Dr. Nathanael Freedman MPV 10.1 fL Normal 9.5-13.5 [facility] Comment on above: Performed By: #### C VDTBH #### [facility] [address] [place] [address] Dr. Nathanael Freedman MYELOCYTE # Normal [facility] Comment on above: Performed By: #### C VDTBH #### [facility] [address] [place] [address] Dr. Nathanael Freedman MYELOCYTE % Normal [facility] Comment on above: Performed By: #### C VDTBH #### [facility] [address] [place] [address] Dr. Nathanael Freedman NRBC Normal [facility] Comment on above: Performed By: #### C VDTBH #### [facility] [address] [address] [address] Nathanael Freedman PLT 195 103/ul Normal 150-450 [facility] Comment on above: Performed By: #### C VDTBH #### [facility] [address] [place] [address] Dr. Nathanael Freedman RBC 4.31 106/ul Normal 4.20-5.40 [facility] Comment on above: Performed By: #### C VDTBH #### [facility] [address] [place] [address] Dr. Nathanael Freedman RDW 12.8 % Normal 11.0-15.0 [facility] Comment on above: Performed By: #### C VDTBH #### [facility] [address] [place] [address] Dr. Nathanael Freedman SEG # 5.36 103/ul Normal 1.40-6.50 [facility] Comment on above: Performed By: #### C VDTBH #### [facility] [address] [place] [address] Dr. Nathanael Freedman SEG % 85.0 % Critically high 43.0-75.0 [facility] Comment on above: Performed By: #### C VDTBH #### [facility] [address] [place] [address] Dr. Nathanael Freedman WBC 6.3 103/ul Normal 4.0-11.0 [facility] Comment on above: Performed By: #### C VDTBH #### [facility] [address] [place] [address] Dr. Nathanael Freedman CRPon 03-20-2022 CRP 2.7 mg/dL Critically high <=1.0 [facility] Comment on above: Performed By: #### C VDTBH #### [facility] [address] [place] [address] Dr. Nathanael Freedman LACTATE/LACTIC ACIDon 2021 Lactate [Moles/Vol] 0.7 mmol/L Normal 0.4-1.9 [facility] Comment on above: Performed By: #### H STROPN, CMP, CRP #### [facility] [address] [place] [address] Dr. Nathanael Freedman LIVER PROFILEon 03-20-2022 Albumin [Mass/Vol] 3.8 g/dL Normal 3.4-5.0 [facility] Comment on above: Performed By: #### C VDTBH #### [facility] [address] [place] [address] Dr. Nathanael Freedman Albumin/Globulin [Mass ratio] 1.1 {ratio} Normal [facility] Comment on above: Performed By: #### C VDTBH #### [facility] [address] [place] [address] Dr. Nathanael Freedman ALP [Catalytic activity/Vol] 60 U/L Normal 46-116 [facility] Comment on above: Performed By: #### C VDTBH #### [facility] [address] [place] [address] Dr. Nathanael Freedman ALT [Catalytic activity/Vol] 29 U/L Normal 14-59 [facility] Comment on above: Performed By: #### C VDTBH #### [facility] [address] [place] [address] Dr. Nathanael Freedman AST [Catalytic activity/Vol] 19 U/L Normal 15-37 [facility] Comment on above: Performed By: #### C VDTBH #### [facility] [address] [place] [address] Dr. Nathanael Freedman BILI, CONJUGATED 0.1 mg/dL Normal 0.0-0.2 [facility] Comment on above: Performed By: #### C VDTBH #### [facility] [address] [place], [place] [address] Dr. Nathanael Freedman Bilirubin [Mass/Vol] 0.6 mg/dL Normal 0.2-1.0 [facility] Comment on above: Performed By: #### C VDTBH #### [facility] [address] [place] [address] Dr. Nathanael Freedman Globulin (S) [Mass/Vol] 3.5 g/dL Normal [facility] Comment on above: Performed By: #### C VDTBH #### [facility] [address] [place] [address] Dr. Nathanael Freedman Protein [Mass/Vol] 7.3 g/dL Normal 6.4-8.2 [facility] Comment on above: Performed By: #### C VDTBH #### [facility] [address] [place] [address] Dr. Nathanael Freedman MYOGLOBINon 03-20-2022 STEFANIA 36 ng/mL Normal 9-82 [facility] Comment on above: Performed By: #### C VDTBH #### [facility] [address] [place] [address] Dr. Nathnaael Freedman PROF CHEM 8 (BAS METB)on Anion gap [Moles/Vol] 13.5 mmol/L Normal [facility] Comment on above: Performed By: #### C VDTBH #### [facility] [address] [place] [address] Dr. Nathanael Freedman Calcium [Mass/Vol] 8.9 mg/dL Normal 8.5-10.1 [facility] Comment on above: Performed By: #### C VDTBH #### [facility] [address] [place] [address] Dr. Nathanael Freedman Chloride [Moles/Vol] 100 mmol/L Normal 98-107 [facility] Comment on above: Performed By: #### C VDTBH #### [facility] [address] [place] [address] Dr. Nathanael Freedman CO2 [Moles/Vol] 26.0 mmol/L Normal 21.0-32.0 [facility] Comment on above: Performed By: #### C VDTBH #### [facility] [address] [address] [address] Nathanael Freedman Creatinine [Mass/Vol] 0.94 mg/dL Normal 0.55-1.02 [facility] Comment on above: Performed By: #### C VDTBH #### [facility] [address] [address] [address] Nathanael Freedman EGFR-AF SCOTTISH >60 Normal >=60 [facility] Comment on above: Performed By: #### C VDTBH #### [facility] [address] [address] [address] Nathanael Freedman EGFR-NON AF SCOTTISH >60 Normal >=60 [facility] Comment on above: Performed By: #### C VDTBH #### [facility] [address] [place] [address] Dr. Nathanael Freedman Glucose [Mass/Vol] 116 mg/dL Critically high 74-106 [facility] Comment on above: Performed By: #### C VDTBH #### [facility] [address] [address] [address] Nathanael Freedman Potassium [Moles/Vol] 3.5 mmol/L Normal 3.5-5.1 [facility] Comment on above: Performed By: #### C VDTBH #### [facility] [address] [place] [address] Dr. Nathanael Freedman Sodium [Moles/Vol] 136 mmol/L Normal 136-145 [facility] Comment on above: Performed By: #### C VDTBH #### [facility] [address] [address] [address] Nathanael Freedman Urea nitrogen [Mass/Vol] 6.0 mg/dL Critically low 7.0-18.0 [facility] Comment on above: Performed By: #### C VDTBH #### [facility] [address] [address] [address] Nathanael Freedman Urea nitrogen/Creatinine [Mass ratio] 6.4 mg/mg Normal [facility] Comment on above: Performed By: #### C VDTBH #### [facility] [address] [address] [address] Nathanael Freedman [facility] SED RATE 26 mm/hr Critically high <=20 [facility] Comment on above: Performed By: #### I NFLUAB #### [facility] [address] [address] [address] Nathanael Freedman Covid-19 PCR ([facility])on 03-06 SARS-CoV-2 (COVID-19) RNA KIRTI+probe Ql (Unsp spec) Detected Critically abnormal NOT DETECTED [facility] Comment on above: Result Comment: This test is not yet approved or cleared by the [place] FDA. When there are no FDA-approved or cleared tests available, and other criteria are met, FDA can make tests available under an emergency access mechanism called an Emergency Use Authorization (EUA). The EUA for this test is supported by the [place] of Health and Human Service's declaration that [...] used). Performed By: #### C VDTBH #### [facility] [address] [place] [address] Dr. Nathanael Freedman INFLUENZA A AND B AGon 03-19 [facility] SEE BELOW Normal [facility] Comment on above: Result Comment: Nega tive for Flu A protein angiten. Infection due to Flu A cannot be ruled out. Flu A angiten in the sample may be below the detection limit of the test. Performed By: #### I NFLUAB #### [facility] [address] [place] [address] Dr. Nathanael Freedman [facility] Normal [facility] Comment on above: Result Comment: Nega tive for Flu B protein antigen. Infection due to Flu B cannot be ruled out. Flu B antigen in the sample may be below the detection limit of the test. Performed By: #### I NFLUAB #### [facility] [address] [place] [address] Dr. Nathanael Freedman INFLUENZA A AG Negative Normal NEGATIVE SEE COMMENT [facility] Comment on above: Performed By: #### I NFLUAB #### [facility] [address] [place] [address] Dr. Nathanael Freedman INFLUENZA B AG Negative Normal NEGATIVE SEE COMMENT [facility] Comment on above: Performed By: #### I NFLUAB #### [facility] [address] [place] [address] Dr. Nathanael Freedman INTERNAL CONTROLS Within Normal Limits Normal Wi thin Normal Limits [facility] Comment on above: Performed By: #### I NFLUAB #### [facility] [address] [place] [address] Dr. Nathanael Freedman CBC AUTO DIFFon 02-27-2022 BASO # 0.1 103/ul Normal 0.0-0.1 [facility] Comment on above: Performed By: #### C VDTBH #### [facility] [address] [place] [address] Dr. Nathanael Freedman Basophils/100 WBC (Bld) 0.5 % Normal 0.2-2.0 [facility] Comment on above: Performed By: #### C VDTBH #### [facility] [address] [place] [address] Dr. Nathanael Freedman EO # 0.2 103/ul Normal 0.0-0.7 [facility] Comment on above: Performed By: #### C VDTBH #### [facility] [address] [place] [address] Dr. Nathanael Freedman Eosinophils/100 WBC (Bld) 2.1 % Normal 0.9-7.0 [facility] Comment on above: Performed By: #### C VDTBH #### [facility] [address] [place] [address] Dr. Nathanael Freedman Erythrocyte distribution width (RBC) [Ratio] 12.4 % Normal 11.0-15.0 [facility] Comment on above: Performed By: #### C VDTBH #### [facility] [address] [place] [address] Dr. Nathanael Freedman Hematocrit (Bld) [Volume fraction] 39.4 % Normal 36.0-48.0 [facility] Comment on above: Performed By: #### C VDTBH #### [facility] [address] [place] [address] Dr. Nathanael Freedman Hemoglobin (Bld) [Mass/Vol] 13.0 g/dL Normal 12.0-16.0 [facility] Comment on above: Performed By: #### C VDTBH #### [facility] [address] [place] [address] Dr. Nathanael Freedman IG # 0.04 10e3/ul Critically high 0.00-0.03 [facility] Comment on above: Performed By: #### C VDTBH #### [facility] [address] [place] [address] Dr. Nathanael Freedman IG % 0.4 % Normal 0.0-0.5 [facility] Comment on above: Performed By: #### C VDTBH #### [facility] [address] [place] [address] Dr. Nathanael Freedman LYMPH # 3.2 103/ul Normal 1.2-3.8 [facility] Comment on above: Performed By: #### C VDTBH #### [facility] [address] [place] [address] Dr. Nathanael Freedman Lymphocytes/100 WBC (Bld) 29.6 % Normal 20.5-60.0 [facility] Comment on above: Performed By: #### C VDTBH #### [facility] [address] [place] [address] Dr. Nathanael Freedman MANUAL DIFF REQ NO Normal [facility] Comment on above: Performed By: #### C VDTBH #### [facility] [address] [place] [address] Dr. Nathanael Freedman MCH (RBC) [Entitic mass] 28.5 pg Normal 26.7-34.0 [facility] Comment on above: Performed By: #### C VDTBH #### [facility] [address] [place] [address] Dr. Nathanael Freedman MCHC (RBC) [Mass/Vol] 33.0 g/dL Normal 29.9-35.2 [facility] Comment on above: Performed By: #### C VDTBH #### [facility] [address] [place] [address] Dr. Nathanael Freedman MCV (RBC) [Entitic vol] 86.4 fL Normal 81.0-99.0 [facility] Comment on above: Performed By: #### C VDTBH #### [facility] [address] [place] [address] Dr. Nathanael Freedman MONO # 0.6 103/ul Normal 0.3-0.8 [facility] Comment on above: Performed By: #### C VDTBH #### [facility] [address] [place] [address] Dr. Nathanael Freedman Monocytes/100 WBC (Bld) 5.9 % Normal 1.7-12.0 [facility] Comment on above: Performed By: #### C VDTBH #### [facility] [address] [place] [address] Dr. Nathanael Freedman NEUT # 6.7 103/ul Critically high 1.4-6.5 [facility] Comment on above: Performed By: #### C VDTBH #### [facility] [address] [place] [address] Dr. Nathanael Freedman Neutrophils/100 WBC (Bld) 61.5 % Normal 43.0-75.0 [facility] Comment on above: Performed By: #### C VDTBH #### [facility] [address] [place] [address] Dr. Nathanael Freedman Platelet mean volume (Bld) [Entitic vol] 10.0 fL Normal 9.5-13.5 [facility] Comment on above: Performed By: #### C VDTBH #### [facility] [address] [place] [address] Dr. Nathanael Freedman PLT 282 103/ul Normal 150-450 [facility] Comment on above: Performed By: #### C VDTBH #### [facility] [address] [address] [address] Nathanael Freedman RBC 4.56 106/ul Normal 4.20-5.40 [facility] Comment on above: Performed By: #### C VDTBH #### [facility] [address] [address] [address] Nathanael Freedman WBC 10.9 103/ul Normal 4.0-11.0 [facility] Comment on above: Performed By: #### C VDTBH #### [facility] [address] [address] [address] Nathanael Freedman CRPon 02-27-2022 CRP 1.7 mg/dL Critically high <=1.0 [facility] Comment on above: Performed By: #### H STROPN, CMP, CRP #### [facility] [address] [place] [address] HEAD WO CONon [...] by: January SILVESTRE Date: 2022-02-26 23:36 Normal [facility] LACTATE/LACTIC ACIDon 2021 Lactate [Moles/Vol] 0.8 mmol/L Normal 0.4-1.9 [facility] Comment on above: Performed By: #### I NFLUAB #### [facility] [address] [place] [address] Dr. Nathanael Freedman PROF 14(COMP METB)on 022 Albumin [Mass/Vol] 4.0 g/dL Normal 3.4-5.0 [facility] Comment on above: Performed By: #### H STROPN, CMP, CRP #### [facility] [address] [address] [address] Nathanael Freedman Albumin/Globulin [Mass ratio] 1.0 {ratio} Normal [facility] Comment on above: Performed By: #### H STROPN, CMP, CRP #### [facility] [address] [address] [address] Nathanael Freedman ALP [Catalytic activity/Vol] 68 U/L Normal 46-116 [facility] Comment on above: Performed By: #### H STROPN, CMP, CRP #### [facility] [address] [address] [address] Nathanael Freedman ALT [Catalytic activity/Vol] 28 U/L Normal 14-59 [facility] Comment on above: Performed By: #### H STROPN, CMP, CRP #### [facility] [address] [address] [address] Nathanael Freedman Anion gap [Moles/Vol] 10.8 mmol/L Normal [facility] Comment on above: Performed By: #### H STROPN, CMP, CRP #### [facility] [address] [place] [address] Dr. Nathanael Freedman AST [Catalytic activity/Vol] 13 U/L Critically low 15-37 [facility] Comment on above: Performed By: #### H STROPN, CMP, CRP #### [facility] [address] [address] [address] Nathanael Freedman Bilirubin [Mass/Vol] 0.4 mg/dL Normal 0.2-1.0 [facility] Comment on above: Performed By: #### H STROPN, CMP, CRP #### [facility] [address] [address] [address] Nathanael Freedman Calcium [Mass/Vol] 9.4 mg/dL Normal 8.5-10.1 [facility] Comment on above: Performed By: #### H STROPN, CMP, CRP #### [facility] [address] [address] [address] Nathanael Freedman Chloride [Moles/Vol] 103 mmol/L Normal 98-107 [facility] Comment on above: Performed By: #### H STROPN, CMP, CRP #### [facility] [address] [address] [address] Nathanael Freedman CO2 [Moles/Vol] 27.7 mmol/L Normal 21.0-32.0 [facility] Comment on above: Performed By: #### H STROPN, CMP, CRP #### [facility] [address] [address] [address] Nathanael Freedman Creatinine [Mass/Vol] 0.96 mg/dL Normal 0.55-1.02 [facility] Comment on above: Performed By: #### H STROPN, CMP, CRP #### [facility] [address] [address] [address] Nathanael Freedman EGFR-AF SCOTTISH >60 Normal >=60 [facility] Comment on above: Performed By: #### H STROPN, CMP, CRP #### [facility] [address] [address] [address] Nathanael Freedman EGFR-NON AF SCOTTISH >60 Normal >=60 [facility] Comment on above: Performed By: #### H STROPN, CMP, CRP #### [facility] [address] [address] [address] Nathanael Freedman Globulin (S) [Mass/Vol] 3.9 g/dL Normal [facility] Comment on above: Performed By: #### H STROPN, CMP, CRP #### [facility] [address] [address] [address] Nathanael Freedman Glucose [Mass/Vol] 124 mg/dL Critically high 74-106 [facility] Comment on above: Performed By: #### H STROPN, CMP, CRP #### [facility] [address] [address] [address] Nathanael Freedman Potassium [Moles/Vol] 3.5 mmol/L Normal 3.5-5.1 [facility] Comment on above: Performed By: #### H STROPN, CMP, CRP #### [facility] [address] [address] [address] Nathanael Freedman Protein [Mass/Vol] 7.9 g/dL Normal 6.4-8.2 [facility] Comment on above: Performed By: #### H STROPN, CMP, CRP #### [facility] [address] [address] [address] Nathanael Freedman Sodium [Moles/Vol] 138 mmol/L Normal 136-145 [facility] Comment on above: Performed By: #### H STROPN, CMP, CRP #### [facility] [address] [address] [address] Nathanael Freedman Urea nitrogen [Mass/Vol] 9.0 mg/dL Normal 7.0-18.0 [facility] Comment on above: Performed By: #### H STROPN, CMP, CRP #### [facility] [address] [address] [address] Nathanael Freedman Urea nitrogen/Creatinine [Mass ratio] 9.4 mg/mg Normal [facility] Comment on above: Performed By: #### H STROPN, CMP, CRP #### [facility] [address] [address] [address] Nathanael Freedman SED RATE [facility] 2021 SED RATE 27 mm/hr Critically high <=20 [facility] Comment on above: Performed By: #### I NFLUAB #### [facility] [address] [address] [address] Nathanael Freedman TROPONIN, HIGH SENSITIVITYon 02-27-2022 HSTROP 2.9 pg/mL Critically low 4.0-51.3 [facility] Comment on above: Result Comment: CUT- OFF POINTS HAVE BEEN ESTABLISHED BASED ON THE FOURTH UNIVERSAL DEFINITIONS OF MYOCARDIAL INFARCTION. THE UPPER REFERENCE LIMIT (URL) OF TROPONIN, DEFINED THE 99TH PERCENTILE OF cTnI DISTRIBUTION IN A REFERENCE POPULATION, HAS BEEN CONFIRMED THE DECISION THRESHOLD FOR AL DIAGNOSIS. Performed By: #### H STROPN, CMP, CRP #### [facility] [address] [address] [address] Nathanael Freedman XR Chest 2 Views*on [...] by Elias Melvin on 02/12/2022 1355 Normal [facility] Urine 10 SGon 11-07-2021 Albumin DL <= 20 mg/L (U) [Mass/Vol] Negative [employer] Other pH (U) 6.0 [pH] [employer] Other Urine 10 SG Negative [employer] Other Urine 10 SG 1.025 [employer] Other Urine 10 SG 0.2 [employer] Other CELIAC DISEASE ABSon 017 ENDO AB IGA Negative Normal Negative [facility] Comment on above: Performed By: #### L CELIACABS ####[facility] [id number] [place] [address] GLIADIN AB IGA 6 units Normal 0-19 [facility] Comment on above: Result Comment: Nega tive 0 - 19 Weak Positive 20 - 30 Moderate to Strong Positive >30 Performed By: #### L CELIACABS ####[facility] [id number] [place] [address] GLIADIN AB IGG 3 units Normal 0-19 [facility] Comment on above: Result Comment: Nega tive 0 - 19 Weak Positive 20 - 30 Moderate to Strong Positive >30 Performed By: #### L CELIACABS ####[facility] [id number] [place] [address] IgA 169 mg/dL Normal 87-352 [facility] Comment on above: Result Comment: Perf ormed At: [facility] [id number] [place], [place] [id number] Vincent [id number] Performed By: #### L CELIACABS ####[facility] [id number] [place] [address] tTG IGA <2 Normal 0-3 [facility] Comment on above: Result Comment: Nega tive 0 - 3 Weak Positive 4 - 10 Positive >10 Tissue Transglutaminase (tTG) has been identified as the endomysial antigen. Studies have demonstr- ated that endomysial IgA antibodies have over 99% specificity for gluten sensitive enteropathy. Performed By: #### L CELIACABS ####[facility] [id number] [place] [address] tTG IGG <2 Normal 0-5 [facility] Comment on above: Result Comment: Nega tive 0 - 5 Weak Positive 6 - 9 Positive >9 Performed By: #### L CELIACABS ####[facility] [id number] [place] [address] C-REACTIVE PROTEINon 017 C reactive protein (CRP) 15.90 mg/L High [facility] Comment on above: Order Comment: Is pa tient fasting? NO Result Comment: Card iovascular CRP Risk Stratification Low < 1.00 mg/L Average 1.00 - 3.00 mg/L High > 3.00 mg/LAbsence of acute inflammation < 3.0 mg/LAcute inflammation >10.0 mg/L Performed By: #### L CMP, LGFRP, LCARDIOCRP, [id number] ####[facility] [id number] [place] [address] CBC AUTOon 09-10-2017 Erythrocyte distribution width Auto Ratio (RBC) 12.7 % Normal 11.5-14.5 [facility] Comment on above: Performed By: #### L CBC, LWSR ####[facility] [id number] [place] [address] Erythrocytes (RBC) 4.61 10*6/uL Normal 3.5-5.5 [facility] [place] Comment on above: Performed By: #### L CBC, LWSR ####[facility] [id number] [place] [address] Hematocrit (HCT) 39.2 % Normal 36.0-48.0 [facility] Comment on above: Performed By: #### L CBC, LWSR ####[facility] [id number] [place] [address] Hemoglobin mass conc (Bld) 13.5 g/dL Normal 12.0-15.0 [facility] Comment on above: Performed By: #### L CBC, LWSR ####[facility] [id number] [place] [address] MCH 29.3 pg Normal 25.4-34.6 [facility] Comment on above: Performed By: #### L CBC, LWSR ####[facility] [id number] [place] [address] MCHC mass conc (RBC) 34.4 g/dL Normal 30.0-36.0 [facility] [place] Comment on above: Performed By: #### L CBC, LWSR ####[facility] [address] [place] [address] MCV 85.0 fL Normal 79.0-98.0 [facility] Comment on above: Performed By: #### L CBC, LWSR ####[facility] [id number] [place] [address] Platelet mean volume (PMV) 10.1 fL Normal 8.4-11.9 [facility] Comment on above: Performed By: #### L CBC, LWSR ####[facility] [id number] [place] [address] Platelets 256 10*3/uL Normal 140-440 [facility] Comment on above: Performed By: #### L CBC, LWSR ####[facility] [id number] [place] [address] WBC (Leukocytes) 10.7 10*3/uL Normal 3.9-11.0 [facility] Comment on above: Performed By: #### L CBC, LWSR ####[facility] [address] [place] [address] COMP METABOLIC PANELon 09-10 Alanine aminotransferase (ALT) 14 U/L Normal 7-45 [facility] Comment on above: Order Comment: Is pa tient fasting? NO Performed By: #### L CMP, LGFRP, LCARDIOCRP, [id number] ####[facility] [id number] [place] [address] Albumin 4.3 g/dL Normal 3.4-5.0 [facility] Comment on above: Order Comment: Is pa tient fasting? NO Performed By: #### L CMP, LGFRP, LCARDIOCRP, [id number] ####[facility] [id number] [place] [address] ALK PHOS TOTAL 49 U/L Normal 45-117 [facility] Comment on above: Order Comment: Is pa tient fasting? NO Performed By: #### L CMP, LGFRP, LCARDIOCRP, [id number] ####[facility] [id number] [place] [address] Aspartate aminotransferase (AST) 14 U/L Normal 13-39 [facility] Comment on above: Order Comment: Is pa tient fasting? NO Performed By: #### L CMP, LGFRP, LCARDIOCRP, [id number] ####[facility] [id number] [place] [address] BILI TOTAL 0.4 mg/dL Normal 0-1.2 [facility] Comment on above: Order Comment: Is pa tient fasting? NO Performed By: #### L CMP, LGFRP, LCARDIOCRP, [id number] ####[facility] [id number] [place] [address] Calcium 9.6 mg/dL Normal 8.6-10.3 [facility] Comment on above: Order Comment: Is pa tient fasting? NO Performed By: #### L CMP, LGFRP, LCARDIOCRP, [id number] ####[facility] [id number] [place] [address] Chloride 103 mmol/L Normal 98-107 [facility] Comment on above: Order Comment: Is pa tient fasting? NO Performed By: #### L CMP, LGFRP, LCARDIOCRP, [id number] ####[facility] [id number] [place] [address] CO2 29 mmol/L Normal 21-32 [facility] Comment on above: Order Comment: Is pa tient fasting? NO Performed By: #### L CMP, LGFRP, LCARDIOCRP, [id number] ####[facility] [id number] [place] [address] Creatinine 0.70 mg/dL Normal 0.5-1.05 [facility] Comment on above: Order Comment: Is pa tient fasting? NO Performed By: #### L CMP, LGFRP, LCARDIOCRP, [id number] ####[facility] [id number] [place] [address] Glucose mass conc 108 mg/dL High 74-99 [facility] Comment on above: Order Comment: Is pa tient fasting? NO Performed By: #### L CMP, LGFRP, LCARDIOCRP, [id number] ####[facility] [id number] [place] [address] Potassium molar conc 3.8 mmol/L Normal 3.5-5.3 [facility] [place] Comment on above: Order Comment: Is pa tient fasting? NO Performed By: #### L CMP, LGFRP, LCARDIOCRP, [id number] ####[facility] [id number] [place] [address] Protein 7.1 g/dL Normal 6.4-8.2 [facility] Comment on above: Order Comment: Is pa tient fasting? NO Performed By: #### L CMP, LGFRP, LCARDIOCRP, [id number] ####[facility] [id number] [place] [address] Sodium 139 mmol/L Normal 136-145 [facility] Comment on above: Order Comment: Is pa tient fasting? NO Performed By: #### L CMP, LGFRP, LCARDIOCRP, [id number] ####[facility] [id number] [place] [address] Urea nitrogen 8 mg/dL Normal 6-23 [facility] Comment on above: Order Comment: Is pa tient fasting? NO Performed By: #### L CMP, LGFRP, LCARDIOCRP, [id number] ####[facility] Znmazsvrbb97030 [place] [address] GLOMERULAR FILTRATION RATE E STon 09-10-2017 eGFR (non-black) mL/min/{1.73_m2} Normal > 60 [facility] Comment on above: Order Comment: Is pa tient fasting? NO Performed By: #### L CMP, LGFRP, LCARDIOCRP, [id number] ####[facility] [id number] [place] [address] IF AMER > 90 Normal > 60 [facility] Comment on above: Order Comment: Is pa tient fasting? NO Result Comment: Effe ctive 03/01/15:CKD-EPI equation / based on IDMS traceable creatinine.Continue to use the CREAT CLR-DOSE (Cockgroft-Gault)value for determining medication dose. Performed By: #### L CMP, LGFRP, LCARDIOCRP, [id number] ####[facility] [id number] [place] [address] SED RATE MANUALon 09-10-2017 WSR/MOD 26 mm/hr High 0-20 [facility] Comment on above: Performed By: #### L CBC, LWSR ####[facility] [id number] [place] [address] TSH (3RDGEN)on 09-10-2017 Thyroid stimulating hormone (TSH) 1.28 m[IU]/L Normal 0.44-3.98 [facility] Comment on above: Order Comment: Is pa tient fasting? NO Performed By: #### L CMP, LGFRP, LCARDIOCRP, [id number] ####[facility] [id number] [place] [address] Vital Signs Date Time Vital Sign Value Performing Clinician Allison levin 01-05-2025 07:38-0400 Diastolic blood pressure 80 mm[Hg] Micheal Bowling DO Work Phone: [facility] 01-05-2025 07:38-0400 Heart rate 96 /min Micheal Bowling DO Work Phone: [facility] 01-05-2025 07:38-0400 Respiratory rate 16 /min Micheal Bowling DO Work Phone: [facility] 01-05-2025 07:38-0400 SaO2% (BldA) [Mass fraction] 99 % Micheal Bowling DO Work Phone: [facility] 01-05-2025 07:38-0400 Systolic blood pressure 134 mm[Hg] Micheal Bowling DO Work Phone: [facility] 01-02-2025 14:03-0400 Heart rate 95 /min Rickie Rubio [facility] 01-02-2025 14:03-0400 Respiratory rate 20 /min Rickie Rubio [facility] 01-02-2025 13:59-0400 Heart rate 96 /min Rickie Rubio [facility] 01-02-2025 13:59-0400 Respiratory rate 20 /min Rickie Rubio [facility] 01-02-2025 13:02-0400 Body temperature 97.7 [degF] Rickie Rubio [facility] 01-02-2025 13:02-0400 Diastolic blood pressure 88 mm[Hg] Rickie Rubio [facility] 01-02-2025 13:02-0400 Heart rate 100 /min Rickie Rubio [facility] 01-02-2025 13:02-0400 Respiratory rate 17 /min Rickie Rubio [facility] 01-02-2025 13:02-0400 SaO2% (BldA) [Mass fraction] 97 % Rickie Rubio [facility] 01-02-2025 13:02-0400 Systolic blood pressure 152 mm[Hg] Rickie Rubio [facility] 12-16-2024 13:54-0400 Body height 149.86 cm Micheal Tovars DO Work Phone: [facility] 12-16-2024 13:54-0400 Body mass index (BMI) [Ratio] 32.3 kg/m2 Micheal Guys DO Work Phone: [facility] 12-16-2024 13:54-0400 Body weight 72.57 kg Micheal Tovars DO Work Phone: [facility] 12-16-2024 13:54-0400 Diastolic blood pressure 70 mm[Hg] Michealflavio Tovars DO Work Phone: [facility] 12-16-2024 13:54-0400 Heart rate 91 /min Micheal Tovars DO Work Phone: [facility] 12-16-2024 13:54-0400 SaO2% (BldA) [Mass fraction] 97 % Micheal Tovars DO Work Phone: [facility] 12-16-2024 13:54-0400 Systolic blood pressure 122 mm[Hg] Micheal Tovars DO Work Phone: [facility] 11-11-2024 13:21-0500 Body height 149.86 cm Micheal Tovars DO Work Phone: [facility] 11-11-2024 13:21-0500 Body mass index (BMI) [Ratio] 32.5 kg/m2 Michealflavio Tovars DO Work Phone: [facility] 11-11-2024 13:21-0500 Body weight 73.02 kg Micheal Tovars DO Work Phone: [facility] 11-11-2024 13:21-0500 Diastolic blood pressure 80 mm[Hg] Micheal Guys DO Work Phone: [facility] 11-11-2024 13:21-0500 Heart rate 86 /min Micheal Guys DO Work Phone: [facility] 11-11-2024 13:21-0500 SaO2% (BldA) [Mass fraction] 98 % Micheal Bowling DO Work Phone: [facility] 11-11-2024 13:21-0500 Systolic blood pressure 138 mm[Hg] Micheal Bowling DO Work Phone: [facility] 10-21-2024 13:47-0500 Body height 149.86 cm [facility] 10-21-2024 13:47-0500 Body mass index (BMI) [Ratio] 32.9 kg/m2 [facility] 10-21-2024 13:47-0500 Body weight 73.93 kg [facility] 10-21-2024 13:47-0500 Diastolic blood pressure 82 mm[Hg] [facility] 10-21-2024 13:47-0500 Heart rate 81 /min [facility] 10-21-2024 13:47-0500 Respiratory rate 18 /min [facility] 10-21-2024 13:47-0500 SaO2% (BldA) [Mass fraction] 97 % [facility] 10-21-2024 13:47-0500 Systolic blood pressure 116 mm[Hg] [facility] 09-08-2024 16:12-0500 Body height 148.6 cm Maycol Clark DO Work Phone: [facility] 09-08-2024 16:12-0500 Body mass index (BMI) [Ratio] 33.28 kg/m2 Maycol Eduardo DO Work Phone: [facility] 09-08-2024 16:12-0500 Body weight 73.48 kg Maycol Clark DO Work Phone: [facility] 09-08-2024 16:12-0500 Diastolic blood pressure 74 mm[Hg] Maycol Clark DO Work Phone: [facility] 09-08-2024 16:12-0500 Systolic blood pressure 124 mm[Hg] Maycol Eduardo DO Work Phone: [facility] 08-26-2024 14:25-0500 Body height 149.86 cm [facility] 08-26-2024 14:25-0500 Body mass index (BMI) [Ratio] 33.9 kg/m2 [facility] 08-26-2024 14:25-0500 Body weight 76.2 kg [facility] 08-26-2024 14:25-0500 Diastolic blood pressure 90 mm[Hg] [facility] 08-26-2024 14:25-0500 Heart rate 85 /min [facility] 08-26-2024 14:25-0500 Respiratory rate 16 /min [facility] 08-26-2024 14:25-0500 SaO2% (BldA) [Mass fraction] 96 % [facility] 08-26-2024 14:25-0500 Systolic blood pressure 134 mm[Hg] [facility] 07-26-2024 17:45-0400 Body mass index (BMI) [Ratio] 33.2 kg/m2 Summer Workman PA Work Phone: [facility] 07-26-2024 17:45-0400 Body weight 73.3 kg Summer Workman PA Work Phone: [facility] 04-27-2024 15:32-0400 Body height 149.86 cm DO Micheal Guys Work Phone: [facility] 04-27-2024 15:32-0400 Body mass index (BMI) [Ratio] 32.3 kg/m2 DO Micheal Guys Work Phone: [facility] 04-27-2024 15:32-0400 Body weight 72.57 kg DO Micheal Kuns Work Phone: [facility] 04-27-2024 15:32-0400 Diastolic blood pressure 82 mm[Hg] DO Micheal Kuns Work Phone: [facility] 04-27-2024 15:32-0400 Heart rate 82 /min DO Micheal Kuns Work Phone: [facility] 04-27-2024 15:32-0400 Respiratory rate 18 /min DO Micheal Kuns Work Phone: [facility] 04-27-2024 15:32-0400 SaO2% (BldA) [Mass fraction] 98 % DO Micheal Bowling Work Phone: [facility] 04-27-2024 15:32-0400 Systolic blood pressure 132 mm[Hg] DO Micheal Bowling Work Phone: [facility] 03-02-2024 15:10-0400 Body height 149.86 cm [facility] 03-02-2024 15:10-0400 Body mass index (BMI) [Ratio] 31.8 kg/m2 [facility] 03-02-2024 15:10-0400 Body weight 71.66 kg [facility] 03-02-2024 15:10-0400 Diastolic blood pressure 82 mm[Hg] [facility] 03-02-2024 15:10-0400 Heart rate 94 /min [facility] 03-02-2024 15:10-0400 Respiratory rate 16 /min [facility] 03-02-2024 15:10-0400 SaO2% (BldA) [Mass fraction] 98 % [facility] 03-02-2024 15:10-0400 Systolic blood pressure 122 mm[Hg] [facility] 01-28-2024 09:51-0400 Body height 149.86 cm [facility] 01-28-2024 09:51-0400 Body mass index (BMI) [Ratio] 32.5 kg/m2 [facility] 01-28-2024 09:51-0400 Body weight 73.02 kg [facility] 01-28-2024 09:51-0400 Diastolic blood pressure 80 mm[Hg] [facility] 01-28-2024 09:51-0400 Heart rate 84 /min [facility] 01-28-2024 09:51-0400 Respiratory rate 16 /min [facility] 01-28-2024 09:51-0400 SaO2% (BldA) [Mass fraction] 98 % [facility] 01-28-2024 09:51-0400 Systolic blood pressure 116 mm[Hg] [facility] 12-26-2023 14:45-0400 Diastolic blood pressure 84 mm[Hg] Aly Castellanos [facility] 12-26-2023 14:45-0400 Heart rate 101 /min Aly Castellanos [facility] 12-26-2023 14:45-0400 SaO2% (BldA) [Mass fraction] 97 % Aly Castellanos [facility] 12-26-2023 14:45-0400 Systolic blood pressure 132 mm[Hg] Aly Castellanos [facility] 11-28-2023 11:26-0500 Body height 149.86 cm DO Micheal Guys Work Phone: [facility] 11-28-2023 11:26-0500 Body mass index (BMI) [Ratio] 30.9 kg/m2 DO Micheal Kuns Work Phone: [facility] 11-28-2023 11:26-0500 Body weight 69.39 kg DO Micheal Kuns Work Phone: [facility] 11-28-2023 11:26-0500 Diastolic blood pressure 98 mm[Hg] DO Micheal Kuns Work Phone: [facility] 11-28-2023 11:26-0500 Heart rate 87 /min DO Micheal Kuns Work Phone: [facility] 11-28-2023 11:26-0500 Respiratory rate 16 /min DO Micheal Kuns Work Phone: [facility] 11-28-2023 11:26-0500 SaO2% (BldA) [Mass fraction] 97 % DO Micheal Kuns Work Phone: [facility] 11-28-2023 11:26-0500 Systolic blood pressure 142 mm[Hg] DO Micheal Kuns Work Phone: [facility] 10-30-2023 16:12-0500 Blood Pressure Location Aly Castellanos [facility] 10-30-2023 16:12-0500 Diastolic blood pressure 79 mm[Hg] Aly Castellanos [facility] 10-30-2023 16:12-0500 Heart rate 80 /min Aly [facility] [facility] 10-30-2023 16:12-0500 SaO2% (BldA) [Mass fraction] 97 % Aly Castellanos [facility] 10-30-2023 16:12-0500 Systolic blood pressure 116 mm[Hg] Aly Castellanos [facility] 10-09-2023 15:45-0500 Body height 149.86 cm Micheal Bowling Other [facility] 10-09-2023 15:45-0500 Body mass index (BMI) [Ratio] 31.71 kg/m2 Michealflavio [employer] Other [facility] [employer] Other 10-09-2023 15:45-0500 Body weight 71.22 kg Michealflavio Bowling Other [facility] [employer] Other 10-09-2023 15:45-0500 Body weight 71.21 kg DO Micheal Bowling Work Phone: [facility] 10-09-2023 15:45-0500 Diastolic blood pressure 80 mm[Hg] Micheal Bowling Other [facility] 10-09-2023 15:45-0500 Respiratory rate 16 /min Micheal Bowling Other [facility] [employer] Other 10-09-2023 15:45-0500 SaO2% (BldA) [Mass fraction] 99 % Micheal Bowling Other [employer] Other 10-09-2023 15:45-0500 Systolic blood pressure 124 mm[Hg] Michealflavio Tovars Other [facility] 09-05-2023 09:45-0500 Body height 149.86 cm Micheal Bowling Other [facility] 09-05-2023 09:45-0500 Body mass index (BMI) [Ratio] 30.54 kg/m2 Micheal Dash Other [employer] Other 09-05-2023 09:45-0500 Body weight 68.58 kg Micheal Bowling Other [facility] 09-05-2023 09:45-0500 Diastolic blood pressure 88 mm[Hg] Micheal Dash Other [facility] 09-05-2023 09:45-0500 Respiratory rate 18 /min Micheal Bowling Other [employer] Other 09-05-2023 09:45-0500 SaO2% (BldA) [Mass fraction] 97 % Michealflavio [employer] Other [employer] Other 09-05-2023 09:45-0500 Systolic blood pressure 130 mm[Hg] Micheal Dash Other [facility] 07-24-2023 14:45-0400 Body height 149.86 cm Micheal Dash Other [employer] Other 07-24-2023 14:45-0400 Body mass index (BMI) [Ratio] 29.69 kg/m2 Micheal Bowling Other [employer] Other 07-24-2023 14:45-0400 Body weight 66.68 kg Michealflavio [employer] Other [employer] Other 07-24-2023 14:45-0400 Diastolic blood pressure 80 mm[Hg] Micheal Bowling Other [employer] Other 07-24-2023 14:45-0400 Respiratory rate 18 /min Micheal Bowling Other [employer] Other 07-24-2023 14:45-0400 SaO2% (BldA) [Mass fraction] 99 % Micheal Bowling Other [employer] Other 07-24-2023 14:45-0400 Systolic blood pressure 125 mm[Hg] Micheal Bowling Other [employer] Other 06-16-2023 08:30-0400 Body height 149.86 cm Micheal Bowling Other [employer] Other 06-16-2023 08:30-0400 Body mass index (BMI) [Ratio] 29.49 kg/m2 Micheal Bowling Other [employer] Other 06-16-2023 08:30-0400 Body weight 66.23 kg Micheal Dash Other [employer] Other 06-16-2023 08:30-0400 Diastolic blood pressure 96 mm[Hg] Micheal Bowling Other [employer] Other 06-16-2023 08:30-0400 Respiratory rate 18 /min Micheal Bowling Other [employer] Other 06-16-2023 08:30-0400 SaO2% (BldA) [Mass fraction] 98 % Michealflavio [employer] Other [employer] Other 06-16-2023 08:30-0400 Systolic blood pressure 154 mm[Hg] Micheal Dash Other [employer] Other 02-07-2023 10:30-0400 Body height 149.86 cm Micheal Tovaralix Other [employer] Other 02-07-2023 10:30-0400 Body mass index (BMI) [Ratio] 30.7 kg/m2 Micheal Bowling Other [employer] Other 02-07-2023 10:30-0400 Body weight 68.95 kg Micheal Dash Other [employer] Other 02-07-2023 10:30-0400 Diastolic blood pressure 96 mm[Hg] Micheal Bowling Other [employer] Other 02-07-2023 10:30-0400 Respiratory rate 16 /min Micheal Dash Other [employer] Other 02-07-2023 10:30-0400 SaO2% (BldA) [Mass fraction] 94 % Micheal Bowling Other [employer] Other 02-07-2023 10:30-0400 Systolic blood pressure 156 mm[Hg] Micheal Bowling Other [employer] Other 02-04-2023 20:36-0400 Diastolic blood pressure 93 mm[Hg] iGla Beasley [facility] 02-04-2023 20:36-0400 Heart rate 72 /min Kaylinn Dokken [facility] 02-04-2023 20:36-0400 Mean blood pressure 115 mm[Hg] Kaylinn Dokken [facility] 02-04-2023 20:36-0400 Respiratory rate 18 /min Kaylinn Dokken [facility] 02-04-2023 20:36-0400 SaO2% (BldA) [Mass fraction] 96 % Kaylinn Dokken [facility] 02-04-2023 20:36-0400 Systolic blood pressure 160 mm[Hg] Kaylinn Dokken [facility] 02-04-2023 20:12-0400 Diastolic blood pressure 104 mm[Hg] Kaylinn Dokken [facility] 02-04-2023 20:12-0400 Heart rate 78 /min Kaylinn Dokken [facility] 02-04-2023 20:12-0400 Mean blood pressure 126 mm[Hg] Kaylinn Dokken [facility] 02-04-2023 20:12-0400 SaO2% (BldA) [Mass fraction] 99 % Kaylinn Dokken [facility] 02-04-2023 20:12-0400 Systolic blood pressure 169 mm[Hg] Kaylinn Dokken [facility] 02-04-2023 20:00-0400 Hourly Rounding Kaylinn Dokken [facility] 02-04-2023 20:00-0400 Promise to Return Kaylinn Dokken [facility] 02-04-2023 19:00-0400 Hourly [address] Kaylinn Dokken [facility] 02-04-2023 19:00-0400 Promise to Return Kaylinn Dokken [facility] 02-04-2023 18:53-0400 Body temperature 97.88 [degF] Kaylinn Dokken [facility] 02-04-2023 18:53-0400 Diastolic blood pressure 94 mm[Hg] Kaylinn Dokken [facility] 02-04-2023 18:53-0400 Heart rate 91 /min Kaylinn Dokken [facility] 02-04-2023 18:53-0400 Respiratory rate 18 /min Kaylinn Dokken [facility] 02-04-2023 18:53-0400 SaO2% (BldA) [Mass fraction] 96 % Kaylinn Dokken [facility] 02-04-2023 18:53-0400 Systolic blood pressure 147 mm[Hg] Kaylinn Dokken [facility] 01-17-2023 09:15-0400 Body height 149.86 cm Micheal Bowling Other [employer] Other 01-17-2023 09:15-0400 Body mass index (BMI) [Ratio] 31.71 kg/m2 Micheal Bowling Other [employer] Other 01-17-2023 09:15-0400 Body weight 71.22 kg Micheal Bowling Other [employer] Other 01-17-2023 09:15-0400 Diastolic blood pressure 90 mm[Hg] Micheal Dash Other [employer] Other 01-17-2023 09:15-0400 Respiratory rate 18 /min Micheal Bowling Other [employer] Other 01-17-2023 09:15-0400 SaO2% (BldA) [Mass fraction] 98 % Micheal Bowling Other [employer] Other 01-17-2023 09:15-0400 Systolic blood pressure 142 mm[Hg] Micheal Bowling Other [employer] Other 12-27-2022 11:30-0400 Body height 149.86 cm Micheal Dash Other [employer] Other 12-27-2022 11:30-0400 Body mass index (BMI) [Ratio] 32.92 kg/m2 Micheal Bowling Other [employer] Other 12-27-2022 11:30-0400 Body weight 73.94 kg Micheal Bowling Other [employer] Other 12-27-2022 11:30-0400 Diastolic blood pressure 85 mm[Hg] Micheal Bowling Other [employer] Other 12-27-2022 11:30-0400 Respiratory rate 18 /min Micheal Bowling Other [employer] Other 12-27-2022 11:30-0400 SaO2% (BldA) [Mass fraction] 99 % Micheal Bowling Other [employer] Other 12-27-2022 11:30-0400 Systolic blood pressure 132 mm[Hg] Micheal Bowling Other [employer] Other 12-16-2022 11:00-0400 Body height 149.86 cm Macey Licona Other [employer] Other 12-16-2022 11:00-0400 Body mass index (BMI) [Ratio] 33.73 kg/m2 Macey Reesault Other [employer] Other 12-16-2022 11:00-0400 Body temperature 97.1 [degF] Macey Licona Other [employer] Other 12-16-2022 11:00-0400 Body weight 75.75 kg Macey Licona Other [employer] Other 12-16-2022 11:00-0400 Respiratory rate 18 /min Macey Licona Other [employer] Other 12-16-2022 11:00-0400 SaO2% (BldA) [Mass fraction] 96 % Macey Licona Other [employer] Other 12-13-2022 09:30-0500 Body height 149.86 cm Micheal Bowling Other [employer] Other 12-13-2022 09:30-0500 Body mass index (BMI) [Ratio] 33.73 kg/m2 Micheal Bowling Other [employer] Other 12-13-2022 09:30-0500 Body weight 75.75 kg Micheal Dash Other [employer] Other 12-13-2022 09:30-0500 Diastolic blood pressure 86 mm[Hg] Micheal Bowling Other [employer] Other 12-13-2022 09:30-0500 Respiratory rate 18 /min Micheal Bowling Other [employer] Other 12-13-2022 09:30-0500 SaO2% (BldA) [Mass fraction] 97 % Micheal Bowling Other [employer] Other 12-13-2022 09:30-0500 Systolic blood pressure 132 mm[Hg] Micheal Bowling Other [employer] Other 10-04-2022 09:00-0500 Body height 149.86 cm Micheal Bowling Other [employer] Other 10-04-2022 09:00-0500 Body mass index (BMI) [Ratio] 33.52 kg/m2 Micheal Bowling Other [employer] Other 10-04-2022 09:00-0500 Body weight 75.3 kg Micheal Bowling Other [employer] Other 10-04-2022 09:00-0500 Diastolic blood pressure 90 mm[Hg] Micheal Bowling Other [employer] Other 10-04-2022 09:00-0500 Respiratory rate 16 /min Micheal Bowling Other [employer] Other 10-04-2022 09:00-0500 SaO2% (BldA) [Mass fraction] 96 % Micheal Bowling Other [facility] [employer] Other 10-04-2022 09:00-0500 Systolic blood pressure 140 mm[Hg] Micheal Bowling Other [facility] [employer] Other 09-13-2022 08:25-0500 Diastolic blood pressure 103 mm[Hg] DO Micheal Tovars Work Phone: [facility] 09-13-2022 08:25-0500 Heart rate 71 /min DO Micheal Tovars Work Phone: [facility] 09-13-2022 08:25-0500 Respiratory rate 16 /min DO Micheal Tovars Work Phone: [facility] 09-13-2022 08:25-0500 SaO2% (BldA) [Mass fraction] 96 % DO Micheal Bowling Work Phone: [facility] 09-13-2022 08:25-0500 Systolic blood pressure 146 mm[Hg] DO Micheal Tovars Work Phone: [facility] 09-13-2022 06:55-0500 Body height 148.59 cm DO Micheal Tovars Work Phone: [facility] 09-13-2022 06:55-0500 Body mass index (BMI) [Ratio] 34.9 kg/m2 DO Michealflavio Tovars Work Phone: [facility] 09-13-2022 06:55-0500 Body weight 77.11 kg DO Michealflavio Tovars Work Phone: [facility] 09-13-2022 06:00-0500 Body temperature 97.9 [degF] DO Michealflavio Tovars Work Phone: [facility] 07-24-2022 08:15-0400 Body height 149.86 cm Michealflavio Tovars Other [employer] Other 07-24-2022 08:15-0400 Body mass index (BMI) [Ratio] 34.53 kg/m2 Micheal Bowling Other [employer] Other 07-24-2022 08:15-0400 Body weight 77.57 kg Micheal Bowling Other [employer] Other 07-24-2022 08:15-0400 Diastolic blood pressure 90 mm[Hg] Micheal Bowling Other [employer] Other 07-24-2022 08:15-0400 Respiratory rate 18 /min Micheal Bowling Other [employer] Other 07-24-2022 08:15-0400 SaO2% (BldA) [Mass fraction] 98 % Micheal Bowling Other [employer] Other 07-24-2022 08:15-0400 Systolic blood pressure 136 mm[Hg] Micheal Bowling Other [employer] Other 05-23-2022 13:45-0400 Body height 149.86 cm Micheal Bowling Other [employer] Other 05-23-2022 13:45-0400 Body mass index (BMI) [Ratio] 34.7 kg/m2 Micheal Bowling Other [employer] Other 05-23-2022 13:45-0400 Body weight 77.93 kg Micheal Bowlign Other [employer] Other 08-18-2022 13:45-0400 Diastolic blood pressure 84 mm[Hg] Micheal Bowling Other [employer] Other 05-23-2022 13:45-0400 Respiratory rate 16 /min Micheal Bowling Other [employer] Other 05-23-2022 13:45-0400 SaO2% (BldA) [Mass fraction] 98 % Micheal Bowling Other [employer] Other 05-23-2022 13:45-0400 Systolic blood pressure 136 mm[Hg] Micheal Bowling Other [employer] Other 05-14-2022 14:15-0400 Body height 149.86 cm Micheal Bowling Other [employer] Other 05-14-2022 14:15-0400 Body mass index (BMI) [Ratio] 34.13 kg/m2 Micheal Bowling Other [employer] Other 05-14-2022 14:15-0400 Body weight 76.66 kg Micheal Bowling Other [employer] Other 05-14-2022 14:15-0400 Diastolic blood pressure 80 mm[Hg] Micheal Bowling Other [employer] Other 05-14-2022 14:15-0400 Respiratory rate 16 /min Micheal Bowling Other [employer] Other 05-14-2022 14:15-0400 SaO2% (BldA) [Mass fraction] 96 % Michealflavio [employer] Other [employer] Other 05-14-2022 14:15-0400 Systolic blood pressure 134 mm[Hg] Michealflavio [employer] Other [employer] Other 05-06-2022 15:00-0400 Body height 149.86 cm Micheal Bowling Other [employer] Other 05-06-2022 15:00-0400 Body mass index (BMI) [Ratio] 32.92 kg/m2 Michealflavio [employer] Other [employer] Other 05-06-2022 15:00-0400 Body weight 73.94 kg Micheal Dash Other [employer] Other 05-06-2022 15:00-0400 Diastolic blood pressure 94 mm[Hg] Micheal Bowling Other [employer] Other 05-06-2022 15:00-0400 Respiratory rate 16 /min Micheal Tovaralix Other [employer] Other 05-06-2022 15:00-0400 SaO2% (BldA) [Mass fraction] 96 % Micheal Tovaralix Other [employer] Other 05-06-2022 15:00-0400 Systolic blood pressure 134 mm[Hg] Micheal Dash Other [employer] Other 02-05-2022 16:45-0400 Body height 149.86 cm Micheal Dash Other [employer] Other 02-05-2022 16:45-0400 Body mass index (BMI) [Ratio] 33.52 kg/m2 Micheal Bowling Other [employer] Other 02-05-2022 16:45-0400 Body weight 75.3 kg Michealflavio [employer] Other [employer] Other 02-05-2022 16:45-0400 Diastolic blood pressure 98 mm[Hg] Micheal Dash Other [employer] Other 02-05-2022 16:45-0400 Respiratory rate 16 /min Micheal Bowling Other [employer] Other 02-05-2022 16:45-0400 SaO2% (BldA) [Mass fraction] 98 % Micheal Bowling Other [employer] Other 02-05-2022 16:45-0400 Systolic blood pressure 162 mm[Hg] Micheal Bowling Other [employer] Other 2021 14:45-0500 Body height 149.86 cm Micheal Bowling Other [employer] Other 2021 14:45-0500 Body mass index (BMI) [Ratio] 33.73 kg/m2 Micheal Bowling Other [employer] Other 2021 14:45-0500 Body weight 75.75 kg Micheal Dash Other [employer] Other 2021 14:45-0500 Diastolic blood pressure 90 mm[Hg] Micheal Bowling Other [employer] Other 2021 14:45-0500 Respiratory rate 16 /min Micheal Bowling Other [employer] Other 2021 14:45-0500 SaO2% (BldA) [Mass fraction] 98 % Micheal Bowling Other [employer] Other 2021 14:45-0500 Systolic blood pressure 150 mm[Hg] Micheal Bowling Other [employer] Other 11-07-2021 10:45-0500 Body height 149.86 cm Micheal Bowling Other [employer] Other 11-07-2021 10:45-0500 Body mass index (BMI) [Ratio] 33.12 kg/m2 Micheal Bowling Other [employer] Other 11-07-2021 10:45-0500 Body weight 74.39 kg Micheal Bowling Other [employer] Other 11-07-2021 10:45-0500 Diastolic blood pressure 95 mm[Hg] Micheal Bowling Other [employer] Other 11-07-2021 10:45-0500 Respiratory rate 18 /min Micheal Bowling Other [employer] Other 11-07-2021 10:45-0500 SaO2% (BldA) [Mass fraction] 98 % Micheal Bowling Other [employer] Other 11-07-2021 10:45-0500 Systolic blood pressure 145 mm[Hg] Micheal Bowling Other [employer] Other 09-22-2021 09:15-0500 Body height 149.86 cm Micheal Bowling Other [employer] Other 09-22-2021 09:15-0500 Body mass index (BMI) [Ratio] 33.52 kg/m2 Micheal Bowling Other [employer] Other 09-22-2021 09:15-0500 Body weight 75.3 kg Micheal Bowling Other [employer] Other 09-22-2021 09:15-0500 Diastolic blood pressure 92 mm[Hg] Micheal Bowling Other [employer] Other 09-22-2021 09:15-0500 Respiratory rate 16 /min Micheal Bowling Other [employer] Other 09-22-2021 09:15-0500 SaO2% (BldA) [Mass fraction] 98 % Micheal Bowling Other [employer] Other 09-22-2021 09:15-0500 Systolic blood pressure 134 mm[Hg] Micheal Bowling Other [employer] Other Encounters Encounter Date Encounter Type Care Provider Facility Start: 01-05-2025 End: 01-05-2025 ambulatory Micheal Bowling DO Work Phone: [facility] Work Phone: Start: 01-05-2025 End: 01-05-2025 Patient encounter procedure Micheal Bowling DO Work Phone: [facility] [place] Work Phone: Start: 01-02-2025 End: 01-02-2025 Emergency department patient visit Rickie Bergeron [facility] Start: 12-16-2024 End: 12-16-2024 ambulatory Michealflavio Bowling DO Work Phone: [facility] Work Phone: Start: 12-16-2024 End: 12-16-2024 Patient encounter procedure Micheal Bowling DO Work Phone: [facility] [place] Work Phone: Start: 11-25-2024 End: 11-25-2024 Patient encounter procedure Michealflavio Bowling DO Work Phone: [facility] Work Phone: Start: 11-25-2024 End: 11-25-2024 ambulatory Michealflavio Bowling DO Work Phone: [facility] Work Phone: Start: 11-11-2024 End: 11-11-2024 ambulatory Michealflavio Bowling DO Work Phone: [facility] Work Phone: Start: 11-11-2024 End: 11-11-2024 Patient encounter procedure Micheal Bowling DO Work Phone: [facility] [place] Work Phone: Start: 10-28-2024 End: 10-28-2024 Patient encounter procedure Michealflavio Bowling DO Work Phone: [facility] [place] Work Phone: Start: 10-28-2024 End: 10-28-2024 ambulatory Michealflavio Bowling DO Work Phone: [facility] Work Phone: Start: 10-21-2024 End: 10-21-2024 ambulatory [facility] Work Phone: Start: 10-21-2024 End: 10-21-2024 Patient encounter procedure [facility] [place] Work Phone: Start: 09-08-2024 End: 09-08-2024 Patient encounter status Maycol Clark DO Work Phone: [facility] Start: 09-08-2024 End: 09-08-2024 Periodic preventive med est patient 40-64yrs Maycol Clark DO Work Phone: [facility] Comment on above: Encounter for gyneco logical examination without abnormal finding; Encounter for Papanicolaou smear of vagina; Breast cancer screening by mammogram Start: 08-26-2024 End: 08-26-2024 ambulatory [facility] Work Phone: Start: 08-26-2024 End: 08-26-2024 Patient encounter procedure [facility] Work Phone: Start: 07-26-2024 End: 07-26-2024 ambulatory SUMMER M WORKMAN Not Available Start: 07-26-2024 End: 07-26-2024 Office outpatient new 30 minutes Summer M Workman PA Work Phone: [facility] Comment on above: Upper respiratory tr act infection, unspecified type (Primary Dx); Pharyngitis, unspecified etiology Start: 06-22-2024 End: 06-22-2024 ambulatory DO Micheal Bowling Work Phone: [facility] Work Phone: Start: 06-22-2024 End: 06-22-2024 Patient encounter procedure DO Micheal Bowling Work Phone: [facility] Work Phone: Start: 04-27-2024 End: 04-27-2024 ambulatory DO Micheal Bowling Work Phone: [facility] Work Phone: Start: 04-27-2024 End: 04-27-2024 Patient encounter procedure DO Micheal Bowling Work Phone: [facility] Work Phone: Start: 04-26-2024 End: 04-26-2024 ambulatory MAYCOL CLARK Not Available Start: 04-07-2024 End: 04-07-2024 Patient encounter procedure DO Micheal Bowling Work Phone: [facility] [place] Work Phone: Start: 04-07-2024 End: 04-07-2024 ambulatory DO Micheal Bowling Work Phone: [facility] Work Phone: Start: 03-22-2024 Non-patient / Non-visit DO Jem Bowling Work Phone: [facility] [place] Work Phone: Start: 03-02-2024 End: 03-02-2024 ambulatory [facility] Work Phone: Start: 03-02-2024 End: 03-02-2024 Patient encounter procedure [facility] [place] Work Phone: Start: 01-28-2024 End: 01-28-2024 ambulatory [facility] Work Phone: Start: 01-28-2024 End: 01-28-2024 Patient encounter procedure [facility] [place] Work Phone: Start: 01-20-2024 Non-patient / Non-visit [facility] Work Phone: Start: 01-12-2024 End: 01-12-2024 ambulatory MAYCOL CLARK Not Available Start: 01-05-2024 End: 01-05-2024 ambulatory LAMONT LONG Not Available Start: 12-26-2023 End: 12-26-2023 Patient encounter procedure Aly Castellanos [facility] Start: 12-16-2023 End: 12-16-2023 Patient encounter procedure Aly Castellanos [facility] Start: 12-16-2023 End: 12-16-2023 ambulatory LAMONT LONG Not Available Start: 12-08-2023 Non-patient / Non-visit [facility] Work Phone: Start: 11-28-2023 End: 11-28-2023 ambulatory DO Micheal Bowling Work Phone: [facility] Work Phone: Start: 11-28-2023 End: 11-28-2023 Patient encounter procedure DO Micheal Bowling Work Phone: [facility] [place] Work Phone: Start: 11-21-2023 End: 11-21-2023 Patient encounter procedure Aly Castellanos [facility] Start: 10-30-2023 End: 10-30-2023 Patient encounter procedure Aly Castellanos [facility] Start: 10-16-2023 End: 10-16-2023 ambulatory Micheal Bowling Other [facility] [employer] Other Start: 10-16-2023 Telephone encounter Micheal Bowling [facility] [place] Start: 10-09-2023 End: 10-09-2023 ambulatory Micheal Bowling Other [facility] [employer] Other Start: 10-09-2023 Office outpatient vi sit 15 minutes Micheal Bowling [facility] [place] Start: 10-09-2023 End: 10-09-2023 Patient encounter procedure DO Micheal Bowling Work Phone: [facility] [place] Work Phone: Start: 09-18-2023 End: 09-19-2023 ambulatory WILLIAM BUTLERHarish Not Available Start: 09-17-2023 End: 09-17-2023 ambulatory Micheal Bowling Other [employer] Other Start: 09-17-2023 Telephone encounter Micheal Bowling [facility] [place] Start: 09-05-2023 End: 09-05-2023 ambulatory Micheal Bowling Other [employer] Other Start: 09-05-2023 Office outpatient vi sit 25 minutes Micheal Bowling [facility] [place] Start: 09-05-2023 End: 09-05-2023 Patient encounter procedure DO Micheal Bowling Work Phone: [facility] [place] Work Phone: Start: 09-05-2023 End: 09-05-2023 Patient encounter procedure DO Micheal Bowling Work Phone: [facility] [place] Work Phone: Start: 09-03-2023 End: 09-03-2023 ambulatory PACO CAVANAUGHSLOW Not Available Start: 09-02-2023 End: 09-02-2023 ambulatory Micheal Bowling Other [employer] Other Start: 09-02-2023 Telephone encounter Micheal Bowling [facility] [place] Start: 08-25-2023 End: 08-25-2023 ambulatory LAMONT Jaison LONG Not Available Start: 07-31-2023 End: 07-31-2023 ambulatory Micheal Bowling Other [employer] Other Start: 07-31-2023 Telephone encounter Mciheal Bowling [facility] [place] Start: 07-24-2023 End: 07-24-2023 ambulatory Micheal Bowling Other [employer] Other Start: 07-24-2023 Office outpatient vi sit 15 minutes Micheal Bowling [facility] [place] Start: 07-09-2023 End: 07-09-2023 ambulatory Micheal Bowling Other [employer] Other Start: 07-09-2023 Telephone encounter Micheal Bowling [facility] [place] Start: 07-07-2023 End: 07-07-2023 ambulatory Micheal Bowling Other [employer] Other Start: 07-07-2023 Telephone encounter Micheal Bowling [facility] [place] Start: 06-24-2023 End: 06-24-2023 ambulatory Micheal Bowling Other [employer] Other Start: 06-24-2023 Telephone encounter Micheal Bowling [facility] [place] Start: 06-18-2023 End: 06-18-2023 ambulatory DO Micheal Bowling Work Phone: [facility] Work Phone: Start: 06-18-2023 End: 06-18-2023 Patient encounter procedure DO Micheal Dash Work Phone: [facility] [place] Work Phone: Start: 06-16-2023 End: 06-16-2023 ambulatory Micheal Bowling Other [employer] Other Start: 06-16-2023 Office outpatient vi sit 25 minutes Micheal Bowling [facility] [place] Start: 06-12-2023 End: 06-12-2023 ambulatory Micheal Bowling Other [employer] Other Start: 06-12-2023 Telephone encounter Micheal Bowling [facility] [place] Start: 04-11-2023 End: 04-11-2023 ambulatory Micheal Bowling Other [employer] Other Start: 04-11-2023 Telephone encounter Micheal Bowling [facility] [place] Start: 02-10-2023 End: 02-10-2023 ambulatory Micheal Bowling Other [employer] Other Start: 02-10-2023 Telephone encounter Micheal Bowling [facility] [place] Start: 02-07-2023 End: 02-07-2023 ambulatory Micheal Bowling Other [employer] Other Start: 02-07-2023 Office outpatient vi sit 15 minutes Micheal Bowling [facility] [place] Start: 02-04-2023 End: 02-04-2023 Emergency department patient visit Gila Beasley [facility] Start: 01-23-2023 End: 01-23-2023 ambulatory Micheal Bowling Other [employer] Other Start: 01-23-2023 Telephone encounter Micheal Bowling [facility] [place] Start: 01-17-2023 End: 01-17-2023 ambulatory Micheal Bowling Other [employer] Other Start: 01-17-2023 Office outpatient vi sit 25 minutes Micheal Bowling [facility] [place] Start: 01-12-2023 End: 01-12-[address] MICHEAL BOWLING Facility: Start: 12-31-2022 End: 12-31-2022 ambulatory Micheal Bowling Other [employer] Other Start: 12-31-2022 Telephone encounter Micheal Bowling [facility] [place] Start: 12-27-2022 End: 12-27-2022 ambulatory Micheal Bowling Other [employer] Other Start: 12-27-2022 Office outpatient vi sit 15 minutes Micheal Bowling [facility] [place] Start: 12-16-2022 End: 12-16-2022 ambulatory Macey Licona Other [employer] Other Start: 12-16-2022 Office outpatient vi sit 25 minutes Macey Liocna [facility] Start: 12-16-2022 Telephone encounter Micheal Bowling [facility] Start: 12-13-2022 End: 12-13-2022 ambulatory Micheal Bowling Other [employer] Other Start: 12-13-2022 Office outpatient vi sit 25 minutes Micheal Bowling [facility] [place] Start: 11-07-2022 End: 11-07-2022 ambulatory Macey Floyd Other [employer] Other Start: 11-07-2022 Telephone encounter Macey Floyd [facility] Start: 10-30-2022 End: 10-30-2022 ambulatory Micheal Bowling Other [employer] Other Start: 10-30-2022 Telephone encounter Micheal Bowling [facility] [place] Start: 10-23-2022 End: 10-23-2022 ambulatory Micheal Bowling Other [employer] Other Start: 10-23-2022 Telephone encounter Micheal Bowling [facility] [place] Start: 10-16-2022 End: 10-16-2022 ambulatory Micheal Bowling Other [employer] Other Start: 10-16-2022 Telephone encounter Micheal Bowling [facility] [place] Start: 10-04-2022 End: 10-04-2022 ambulatory Micheal Bowling Other [employer] Other Start: 10-04-2022 Office outpatient vi sit 15 minutes Micheal Bowling [facility] [place] Start: 09-18-2022 End: 09-18-[address] MICHEAL BOWLING Facility: Start: 09-13-2022 End: 09-13-2022 Admission to same day surgery center DO Micheal Bowling Work Phone: [facility] Start: 09-13-2022 End: 09-13-2022 ambulatory DO Micheal Bowling Work Phone: [facility] Work Phone: Start: 07-24-2022 End: 07-24-2022 ambulatory Micheal Bowling Other [employer] Other Start: 07-24-2022 Office outpatient vi sit 15 minutes Micheal Bowling [facility] [place] Start: 06-27-2022 End: 06-27-2022 ambulatory Micheal Bowling Other [employer] Other Start: 06-27-2022 Telephone encounter Micheal Bowling [facility] [place] Start: 05-23-2022 End: 05-23-2022 ambulatory Micheal Bowling Other [employer] Other Start: 05-23-2022 Office outpatient vi sit 25 minutes Micheal Bowling [facility] [place] Start: 05-15-2022 End: 05-15-2022 Patient encounter procedure DO Micheal Bowling Work Phone: [facility] [place] Start: 05-14-2022 End: 05-14-2022 Patient encounter procedure DO Micheal Bowling Work Phone: [facility] [place] Start: 05-14-2022 End: 05-14-2022 ambulatory Micheal Bowling Other [employer] Other Start: 05-14-2022 Office outpatient vi sit 15 minutes Micheal Bowling [facility] [place] Start: 05-12-2022 End: 05-12-[address] MICHEAL BOWLING Facility:[facility] Start: 05-06-2022 End: 05-06-2022 ambulatory Micheal Bowling Other [employer] Other Start: 05-06-2022 Office outpatient vi sit 15 minutes Micheal Bowling [facility] [place] Start: 04-29-2022 End: 04-29-2022 ambulatory Micheal Bowling Other [employer] Other Start: 04-29-2022 Telephone encounter Micheal Bowling [facility] [place] Start: 04-16-2022 End: 04-16-2022 ambulatory Micheal Bowling Other [employer] Other Start: 04-16-2022 Telephone encounter Micheal Bowling [facility] [place] Start: 04-15-2022 End: 04-15-2022 ambulatory Micheal Bowling Other [employer] Other Start: 04-15-2022 Telephone encounter Micheal Bowling [facility] [place] Start: 03-19-2022 End: 03-20-[address] MICHEAL BOWLING Facility:[facility] Start: 02-27-2022 End: 02-27-2022 ambulatory Micheal Bowling Other [employer] Other Start: 02-27-2022 Telephone encounter Micheal Bowling [facility] [place] Start: 02-27-2022 End: 02-27-[address] MICHEAL BOWLING Facility:[facility] Start: 02-12-2022 End: 02-12-2022 ambulatory Micheal Bowling Other [employer] Other Start: 02-12-2022 Telephone encounter Micheal Bowling [facility] [place] Start: 02-07-2022 End: 02-07-2022 ambulatory Micheal Tovars Other [employer] Other Start: 02-07-2022 Telephone encounter Micheal Bowling [facility] [place] Start: 02-05-2022 End: 02-05-2022 ambulatory Micheal Bowling Other [employer] Other Start: 02-05-2022 Office outpatient vi sit 25 minutes Micheal Bowling [facility] [place] Start: 01-29-2022 End: 01-29-2022 ambulatory Micheal Tovars Other [employer] Other Start: 01-29-2022 Telephone encounter Micheal Bowling [facility] [place] Start: 2021 End: 2021 ambulatory Micheal Tovars Other [employer] Other Start: 2021 Office outpatient vi sit 25 minutes Micheal Tovars [facility] [place] Start: 11-07-2021 End: 11-07-2021 ambulatory Micheal Tovars Other [employer] Other Start: 11-07-2021 Office outpatient vi sit 15 minutes Micheal Bowling [facility] [place] Start: 10-18-2021 End: 10-18-2021 ambulatory Micheal Tovars Other [employer] Other Start: 10-18-2021 Telephone encounter Micheal Bowling [facility] [place] Start: 10-10-2021 End: 10-10-2021 ambulatory Micheal Tovars Other [employer] Other Start: 10-10-2021 Telephone encounter Micheal Bowling [facility] [place] Start: 09-22-2021 End: 09-22-2021 ambulatory Micheal Bowling Other [employer] Other Start: 09-22-2021 Office outpatient vi sit 15 minutes Micheal [facility] Start: 08-23-2021 End: 08-23-2021 ambulatory Micheal Bowling Other [employer] Other Start: 08-23-2021 Telephone encounter Micheal Bowling [facility] Start: 04-13-2018 Ambulatory PROVIDER UNKNOWN Facili ty:[id number] Start: 04-13-2018 Ambulatory Facility:[id number] Start: 09-10-2017 Ambulatory Steph Causey Facility:[facility] Procedures Date Procedure Procedure Detail Performing Clinician Start: 11-25-2024 CT of head with contrast Micheal Bowling DO Work Phone: Start: 07-26-2024 [facility] streptococcus group a amplified [...] screening by mammogram Expected: 01/12/2025, Expires: 11/09/2025 [facility] Comment on above: Expected: 01/12/2025 , Expires: 11/09/2025 Start: 01-11-2025 Screening for malignant neoplasm of breast Mammogram [facility] Start: 10-28-2024 Estradiol (E2) [Mass/volume] in Serum or Plasma [facility] Start: 10-28-2024 Lipoprotein a [Moles/volume] in Serum or Plasma [facility] Start: 10-28-2024 [facility] Start: 08-24-2024 End: 08-24-2024 Patient encounter procedure 08/24/2024 9:30 AM EST Office Visit [facility] [address] [facility] [address] [place] [address], [facility] [address] [facility] [address] [place] [address] [facility] Start: 08-20-2024 End: 08-20-2024 Patient encounter procedure 08/20/2024 8:45 AM EST Office Visit [facility] [address] [facility] [address] [place] [address] Maycol Clark, DO [address] [facility] [address] [place] [address] [facility] Start: 06-06-2024 Influenza vaccination Influenza Vacc ine (#1) [facility] Start: 09-13-2022 End: 09-13-2022 [facility] Start: 12-05-2007 Screening for malignant neoplasm of cervix [facility] Start: 1998 Screening for malignant neoplasm of cervix Pap Smear [facility] Start: 1977 Screening for malignant neoplasm of colon [facility] CT Head W contrast IV [facility] CT Head WO and W contrast IV [facility] CT Sinuses WO contrast [facility] Estradiol (E2) [Mass/volume] in Serum or Plasma [facility] Glucose measurement estimated from glycated hemoglobin [facility] Hemoglobin A1c/Hemoglobin.total in Blood [facility] IGP,rfxAptima HPV all,16/18,45 IGP,rfxAptima HPV all,16/18,45 Pathology and Cytology Routine Encounter for Papanicolaou smear of vagina Ordered: 09/08/2024 [facility] Work Phone: Comment on above: Ordered: 09/08/2024 Patient Education Low back pain in adults [facility] Work Phone: Patient referral [facility] Work Phone: [facility] Immunizations Immunization Date Immunization Notes Care Provider Fa cili 08-13-2021 influenza, injectabl e, quadrivalent, preservative free Summer Workman PA Work Phone: [facility] 08-13-2021 influenza virus vaccine, unspecified formulation Summer Workman PA Work Phone: [facility] 01-23-2021 COVID-19 Vaccine Pfi zer - Documentation Purposes Only Micheal Bowling Other [facility] 12-29-2020 COVID-19 Vaccine Pfi zer - Documentation Purposes Only Micheal Bowling Other [facility] 06-06-2020 influenza, injectabl e, quadrivalent, preservative free [employer] Workman PA Work Phone: [facility] 08-04-2018 seasonal influenza, intradermal, preservative free Silicon Cloudman PA Work Phone: [facility] Payers Date Payer Category Payer Unknown [id number] 2021 Private Health Insurance [employer] [id number] 2015 Blue Cross Blue Shield DZNAN [id number] 1977 Unknown [id number] [id number]. 593 1977 Unknown [id number] 2.16.840.1.967450.3.579.2. 59 1977 Unknown [id number] 2.16840.1.083474.3.579.2. 593 1977 Unknown [id number] 2.840.1.895821.3.579.2. 1977 Unknown [id number] 2.16.840.1.119557.3.579.2. 59 1977 Unknown [id number] 2.16.840.1.878961.3.579.2. 1258 1977 Unknown [id number] 2.16840.1.502761.3.579.2. 1258 1977 Unknown [id number] 2.16840.1.904456.3.579.2. 1258 1977 Unknown [id number] 2.16.840.1.055577.3.579.2. 1258 1977 Unknown [id number] 2.16.840.1.044012.3.579.2. 1258 1977 Unknown [id number] 2.16840.1.584842.3.579.2. 1258 1977 Unknown [id number] 2.16.840.1.668335.3.579.2. 1258 1977 Unknown [id number] 2.16.840.1.399461.3.579.2. 1259 1977 Unknown [id number] 2.16.840.1.023373.3.579.2. 1259 1977 Unknown [id number] 2.16.840.1.632879.3.579.2. 727 1959 Medicaid [id number] [id number] 1959 Unknown [id number] 1959 Unknown [id number] Self-pay Self Pay [id number] Social History Date Type Detail Facility Unknown if ever smoked [employer] Other Start: 07-26-2024 End: 09-08-2024 Sex Assigned At [facility] Start: 06-02-2020 End: 12-16-2024 Tobacco smoking status FLIS Never smoked tobacco (finding) [facility] Start: 1975 Sex Assigned At Female F [facility] Tobacco [facility] Comment on above: Denies. denies Tobacco smoking status [facility] Start: 07-22-2023 Tobacco use and exposure Smokeless tobacco non-user [facility] Start: 07-26-2024 End: 09-08-2024 Alcoholic beverage intake Current drinker of alcohol (finding) [facility] Start: 07-26-2024 End: 09-08-2024 Alcoholic beverage intake [facility] Start: 08-12-2023 Alcohol Comment Caffeine intak e: 2-3 cups per day [facility] Start: 1975 Sex assigned at Not on file [facility] Start: 08-26-2024 End: 01-05-2025 Sex Female (finding) [facility] How often to you hav e a drink containing alcohol? Monthly or less [facility] How many standard drinks containing alcohol do you have on a typical day? 1 or 2 [facility] How often do you hav e 6 or more drinks on 1 occasion? Never [facility] Goals Date Patient Goal Desired Activity /State Functional Status Date Assessment Result Facility 01-02-2025 Functional Status N/A [facility] 12-26-2023 Functional Status N/A [facility] 10-30-2023 Functional Status No [facility] 02-04-2023 Functional Status N/A [facility] Clinical Notes 08-06-2009 to 01-02-2025 Note Date & Type Note Facility 01-02-2025 Hospital Discharg e instructions Patient Education 01/02/2025 14:28:39 Asthma, Adult Asthma, Adult Asthma is a long-term (chronic) condition that causes recurrent episodes in which the lower airways in the lungs become tight and narrow. The narrowing is caused by inflammation and tightening of the smooth muscle around the lower airways. Asthma episodes, also called asthma attacks or asthma flares, may cause coughing, making high-pitched whistling sounds when you breathe, most often when you breathe out (wheezing), shortness of breath, and chest pain. The airways may produce extra mucus caused by the inflammation and irritation. During an attack, it can be difficult to breathe. Asthma attacks can range from minor to life-threatening. Asthma cannot be cured, but medicines and lifestyle changes can help control it and treat acute attacks. It is important to keep your asthma well controlled so the condition does not interfere with your daily life. What are the causes? This condition is believed to be caused by inherited (genetic) and environmental factors, but its exact cause is not known. What can trigger an asthma attack? Many things can bring on an asthma attack or make symptoms worse. These triggers are different for every person. Common triggers include: Allergens and irritants like mold, dust, pet dander, cockroaches, pollen, air pollution, and chemical odors. Cigarette smoke. Weather changes and cold air. Stress and strong emotional responses such as crying or laughing hard. Certain medications such as aspirin or beta blockers. Infections and inflammatory conditions, such as the flu, a cold, pneumonia, or inflammation of the nasal membranes (rhinitis). Gastroesophageal reflux disease (GERD). What are the signs or symptoms? Symptoms may occur right after exposure to an asthma trigger or hours later and can vary by person. Common signs and symptoms include: Wheezing. Trouble breathing (shortness of breath). Excessive nighttime or early childhood education coordinator coughing. Chest tightness. Tiredness (fatigue) with minimal activity. Difficulty talking in complete sentences. Poor exercise tolerance. How is this diagnosed? This condition is diagnosed based on: A physical exam and your medical history. Tests, which may include: ?Lung function studies to evaluate the flow of air in your lungs. ?Allergy tests. ?Imaging tests, such as X-rays. How is this treated? There is no cure, but symptoms can be controlled with proper treatment. Treatment usually involves: Identifying and avoiding your asthma triggers. Inhaled medicines. Two types are commonly used to treat asthma, depending on severity: ?Controller medicines. These help prevent asthma symptoms from occurring. They are taken every day. ?Fast-acting reliever or rescue medicines. These quickly relieve asthma symptoms. They are used as needed and provide short-term relief. Using other medicines, such as: ?Allergy medicines, such as antihistamines, if your asthma attacks are triggered by allergens. ?Immune medicines (immunomodulators). These are medicines that help control the immune system. Using supplemental oxygen. This is only needed during a severe episode. Creating an asthma action plan. An asthma action plan is a written plan for managing and treating your asthma attacks. This plan includes: ?A list of your asthma triggers and how to avoid them. ?Information about when medicines should be taken and when their dosage should be changed. ?Instructions about using a device called a peak flow meter. A peak flow meter measures how well the lungs are working and the severity of your asthma. It helps you monitor your condition. Follow these instructions at home: Take biyh-ast-nsydfqy and prescription medicines only as told by your health care provider. Stay up to date on all vaccinations as recommended by your healthcare provider, including vaccines for the flu and pneumonia. Use a peak flow meter and keep track of your peak flow readings. Understand and use your asthma action plan to address any asthma flares. Do not smoke or allow anyone to smoke in your home. Contact a health care provider if: You have wheezing, shortness of breath, or a cough that is not responding to medicines. Your medicines are causing side effects, such as a rash, itching, swelling, or trouble breathing. You need to use a reliever medicine more than 2 3 times a week. Your peak flow reading is still at 50 79% of your personal best after following your action plan for 1 hour. You have a fever and shortness of breath. Get help right away if: You are getting worse and do not respond to treatment during an asthma attack. You are short of breath when at rest or when doing very little physical activity. You have difficulty eating, drinking, or talking. You have chest pain or tightness. You develop a fast heartbeat or palpitations. You have a bluish color to your lips or fingernails. You are light-headed or dizzy, or you faint. Your peak flow reading is less than 50% of your personal best. You feel too tired to breathe normally. These symptoms may be an emergency. Get help right away. Call 911. Do not wait to see if the symptoms will go away. Do not drive yourself to the hospital. Summary Asthma is a long-term (chronic) condition that causes recurrent episodes in which the airways become tight and narrow. Asthma episodes, also called asthma attacks or asthma flares, can cause coughing, wheezing, shortness of breath, and chest pain. Asthma cannot be cured, but medicines and lifestyle changes can help keep it well controlled and prevent asthma flares. Make sure you understand how to avoid triggers and how and when to use your medicines. Asthma attacks can range from minor to life-threatening. Get help right away if you have an asthma attack and do not respond to treatment with your usual rescue medicines. This information is not intended to replace advice given to you by your health care provider. Make sure you discuss any questions you have with your health care provider. Document Revised: 07/10/2022 Document Reviewed: 07/01/2022 [employer] Patient Education 2023 [employer]. Follow Up Care 01/02/2025 13:00:08 With:MICHEAL BOWLING Address: [address] [place], [place] [id number] Business (1) When:Within 3 Day(s) [facility] 01-02-2025 Note ED Patient Education Note Pulmonary Medicine Asthma, Adult Asthma is a long-term (chronic) condition that causes recurrent episodes in which the lower airways in the lungs become tight and narrow. The narrowing is caused by inflammation and tightening of the smooth muscle around the lower airways. Asthma episodes, also called asthma attacks or asthma flares, may cause coughing, making high-pitched whistling sounds when you breathe, most often when you breathe out (wheezing), shortness of breath, and chest pain. The airways may produce extra mucus caused by the inflammation and irritation. During an attack, it can be difficult to breathe. Asthma attacks can range from minor to life-threatening. Asthma cannot be cured, but medicines and lifestyle changes can help control it and treat acute attacks. It is important to keep your asthma well controlled so the condition does not interfere with your daily life. What are the causes? This condition is believed to be caused by inherited (genetic) and environmental factors, but its exact cause is not known. What can trigger an asthma attack? Many things can bring on an asthma attack or make symptoms worse. These triggers are different for every person. Common triggers include: ??? Allergens and irritants like mold, dust, pet dander, cockroaches, pollen, air pollution, and chemical odors. ??? Cigarette smoke. ??? Weather changes and cold air. ??? Stress and strong emotional responses such as crying or laughing hard. ??? Certain medications such as aspirin or beta blockers. ??? Infections and inflammatory conditions, such as the flu, a cold, pneumonia, or inflammation of the nasal membranes (rhinitis). ??? Gastroesophageal reflux disease (GERD). What are the signs or symptoms? Symptoms may occur right after exposure to an asthma trigger or hours later and can vary by person. Common signs and symptoms include: ??? Wheezing. ??? Trouble breathing (shortness of breath). ??? Excessive nighttime or early childhood education coordinator coughing. ??? Chest tightness. ??? Tiredness (fatigue) with minimal activity. ??? Difficulty talking in complete sentences. ??? Poor exercise tolerance. How is this diagnosed? This condition is diagnosed based on: ??? A physical exam and your medical history. ??? Tests, which may include: ? Lung function studies to evaluate the flow of air in your lungs. ? Allergy tests. ? Imaging tests, such as X-rays. How is this treated? There is no cure, but symptoms can be controlled with proper treatment. Treatment usually involves: ??? Identifying and avoiding your asthma triggers. ??? Inhaled medicines. Two types are commonly used to treat asthma, depending on severity: ? Controller medicines. These help prevent asthma symptoms from occurring. They are taken every day. ? Fast-acting reliever or rescue medicines. These quickly relieve asthma symptoms. They are used as needed and provide short-term relief. ??? Using other medicines, such as: ? Allergy medicines, such as antihistamines, if your asthma attacks are triggered by allergens. ? Immune medicines (immunomodulators). These are medicines that help control the immune system. ??? Using supplemental oxygen. This is only needed during a severe episode. ??? Creating an asthma action plan. An asthma action plan is a written plan for managing and treating your asthma attacks. This plan includes: ? A list of your asthma triggers and how to avoid them. ? Information about when medicines should be taken and when their dosage should be changed. ? Instructions about using a device called a peak flow meter. A peak flow meter measures how well the lungs are working and the severity of your asthma. It helps you monitor your condition. Follow these instructions at home: ??? Take xoga-wwr-fwcdlgw and prescription medicines only as told by your health care provider. ??? Stay up to date on all vaccinations as recommended by your healthcare provider, including vaccines for the flu and pneumonia. ??? Use a peak flow meter and keep track of your peak flow readings. ??? Understand and use your asthma action plan to address any asthma flares. ??? Do not smoke or allow anyone to smoke in your home. Contact a health care provider if: ??? You have wheezing, shortness of breath, or a cough that is not responding to medicines. ??? Your medicines are causing side effects, such as a rash, itching, swelling, or trouble breathing. ??? You need to use a reliever medicine more than 2?3 times a week. ??? Your peak flow reading is still at 50?79% of your personal best after following your action plan for 1 hour. ??? You have a fever and shortness of breath. Get help right away if: ??? You are getting worse and do not respond to treatment during an asthma attack. ??? You are short of breath when at rest or when doing very little physical activity. ??? You have difficulty eating, drinking, or talking. (more content not included)... [facility] 03-30-2025 Evaluation + Plan note Extrac brenda from: Title:ED Note Author:Monika Bellamy PA-C [place] e:01/02/25 1. Asthma exacerbation (J45. 901: Unspecified asthma with (acute) exacerbation) Orders: albuterol-ipratropium, 3 mL, Soln-Inh, NEB, Once, Stop date 01/02/25 13:46:00 EDT, STAT, Start date 01/02/25 13:46:00 EDT albuterol-ipratropium, 3 mL, Inhalation, QID Wheezing, 30 EA, Refill(s) 0, [facility]/pharmacy #[id number], 167, cm, 01/02/25 13:04:00 EDT, Height/Length Dosing, 75, kg, 01/02/25 13:04:00 EDT, Weight Dosing triamcinolone, 40 mg = 1 mL, Susp-Inj, IntraMuscular, Once, Stop date 01/02/25 13:47:00 EDT, STAT, Start date 01/02/25 13:47:00 EDT, 01/02/25 13:47:00 EDT XR Chest Single View 49-year-old female with past medical history of asthma presents to the ER with concerns for reactive airway and asthma exacerbation. In the ER patient is afebrile, vital signs are stable, no acute distress. Patient treated with Kenalog per her request as she states that she cannot tolerate prednisone. Chest x-ray unremarkable, also given DuoNeb in the ER with improvement of symptoms. On reexamination patient resting comfortably in bed. Results are discussed with patient length, she is discharged home with instructions to follow-up with her primary care provider and is to return to the ER with any new or worsening symptoms. Patient given prescription for DuoNebs, she has a nebulizer machine at home. Patient voices understanding and is agreeable to plan [facility] 02-20-2025 [facility] [address] [place], [place] [id number] CT Scan Report Signed Patient: Brandon Long MR#: [id number] : 1975 Acct:[id number] Age/Sex: 48 / F ADM Date: 5 Loc: CT Room: Type: [facility] Attending Dr: Micheal Bowling DO Copies to: Micheal Bowling DO~ Ordering Provider: Micheal Bowling DO Date of Service: 11/25/24 CT/CT head/brain wo/w con: R51.9 CT BRAIN WITHOUT CONTRAST/WITH CONTRAST: CLINICAL HISTORY: Head pain, headache, family history of cerebral aneurysm, elevated CRP COMPARISON: 04/30/2010 TECHNIQUE: This CT exam was performed using one or more following dose reduction techniques: Automated exposure control, adjustment of the mA and/or kVaccording to patient size, or use of iterative reconstruction technique. FINDINGS: There is no evidence of midline shift, intra or extra-axial fluid collection, hemorrhage or CT evidence of stroke. No evidence of abnormal postcontrast enhancement. Visualized intraorbital contents appear unremarkable. Visualized paranasal sinuses are clear. The surrounding soft tissues are normal. CT/CT head/brain wo/w con IMPRESSION: NO ACUTE INTRACRANIAL ABNORMALITY. NO EVIDENCE OF ABNORMAL POSTCONTRAST ENHANCEMENT. Impression dictated by: Sloan Rodgers M.D.11/25/2024 2:00 PM Dictation Location: [place] [address] Transcribed By: [facility] 11/25/24 1400 Dictated By: Sloan Rodgers MD 11/25/24 1346 Signed By: 11/25/24 1400 [facility] Work Phone: 1(424) 790-755701-16-2025 Evaluation note* Author [facility] Authored October 21, 2024 2 :47pm The above note written by Kassandra Morrison LPN, acting as human recorder, note dictated by Dr. Micheal Bowling. Author Debbie Mace [facility] Authored December 16, 2024 1:4 1pm The above note written by NAHUN Cherry acting as human recorder, note dictated by Dr. Micheal Bowling. [facility] Work Phone: 1(327) 440-680501-16-2025 Evaluation note* Author [facility] Authored October 21, 2024 1 :47pm The above note written by Kassandra Morrison LPN, acting as human recorder, note dictated by Dr. Micheal Bowling. [facility] Work Phone: 1(905) 862-869212-04-2024 History of Present illness Narrative* Fior Lees MA - 09/08/2024 4:00 PM EST Images from the original note were not included. Maycol Clark, DO Obstetrics and Gynecology Brandon Long 1975 09/08/24 [id number] Yearly Wellness Exam Chief Complaint Patient presents [...] Laterality Date CHOLECYSTECTOMY 2014 COLPOSCOPY HYSTERECTOMY 12/2015 LAV/BS INCONTINENCE SURGERY 2013 TVT-O SKIN LESION EXCISION [...] palpable bilaterally, normal nipples bilaterally - everted - finely cystic more UOQ - dense - well supported- axilla negative. ABDOMEN: soft, nontender, nondistended, no masses palpable. BACK: no costovertebral angle tenderness, no obvious scoliosis/kyphosis. FEMALE GENITOURINARY:pre parole counseling aide in room, cuff well supported, no studding [...] patient is to contact the office with anychanges to her gynecological condition or any changes [...] and the decisions I made. Signature Rafael ClarkDDioneODione Date 09/08/24 Time 5:00PM. documented in this encounterSaint [facility] Medical [id number] Evaluation note* Author Debbie Mace [facility] Authored August 26, 2024 3:12pm The above note written by NAHUN Cherry acting as human recorder, note dictated by Dr. Micheal Bowling. Author Taylor Morrison [facility] Authored October 21, 2024 1 :47pm The above note written by Kassandra Morrison LPN, acting as human recorder, note dictated by Dr. Micheal Bowling. [facility] Work Phone: 1(277) 224-637410-21-2024 History of Present illness Narrative* SARA Guallpa [...] - STREP DNA PROBE documented in this [facility]07-23-2024 Evaluation note* Author [facility] Authored April 27, 2024 3:32 pm The above note written by Tal GARNICA acting as human recorder, note dictated by Dr. Micheal Bowling. [facility] Work Phone: 1(366) 267-229205-28-2024 Evaluation note* Author [facility] Authored March 02, 2024 3:51p m The above note written by Tal GARNICA acting as human recorder, note dictated by Dr. Micheal Bowling. [facility] Work Phone: 1([phone]) 805-675805-28-2024 Evaluation note* Author [facility] Authored March 02, 2024 3:51p m The above note written by Tal GARINCA acting as human recorder, note dictated by Dr. Micheal Bowling. Author [facility] Authored April 27, 2024 3:32 pm The above note written by Tal GARNICA acting as human recorder, note dictated by Dr. Micheal Bowling. [facility] Work Phone: 1(132) 676-469002-23-2024 Evaluation note* Author Micheal Bowling [facility] Authored November 28, 2023 4:49pm 4 to 6 weeks, the ER if conc erns,The above note written by Alejandra Peng LPN acting as human recorder, note dictated by Dr. Micheal Bowling [facility] Work Phone: 1(688) 356-875402-16-2024 Evaluation + Plan note Future Scheduled Tests Radiology* EC Stress Echo Complete, Transthoracic 11/21/23 [facility]01-04-2024 Evaluation note* Encounter Date Diagnosis Assessment Notes Treatment Notes Treatment Clinical Notes Oct, Chest pain, unspecified type (ICD-10 - R07.9) Patient is scheduled in a few weeks to have a consult with the office machine technician Dr. Garcia in [place]. She is to get clearance to take [...] exercise regimen; we will continue to monitor. [facility] Other 01-04-2024 Evaluation note* Encounter Date Diagnosis [...] Oct, Other obesity (ICD-1 0 - E66.8) [facility] Other 12-01-2023 Evaluation note* Encounter Date Diagnosis Assessment Notes Treatment Notes Treatment Clinical Notes Sep, Chest pain (ICD-10 - R07.9) ER report reviewed with the patient. Chest XR was normal. The patient reports last stress test she had was about ten years ago. I do recommend the patient have a recheck stress test, even better yet have a consult with a office machine technician first. Patient is agreeable and did request [...] - E87.6) We will continue to montior. [facility] Other 10-19-2023 Evaluation note* Encounter Date Diagnosis [...] discussed, this was provided for her today. [facility] Other 10-04-2023 Evaluation note* Encounter Date Diagnosis Assessment Notes Treatment Notes Treatment Clinical Notes Jul, Hypertension (ICD-10 - I10) Jul, GERD (gastroesophageal reflux disease) (ICD-10 - K21.9) [facility] Other 10-02-2023 Evaluation note* Encounter Date Diagnosis Assessment Notes Treatment Notes Treatment Clinical Notes Jul, Hypertension (ICD-10 - I10) [facility] Other 10-01-2023 History general Narrative - Reported* Type Description Date Medical History 2006 pelvic exam done Medical History no mammogram Medical History no colonoscopy Medical History no stress test Medical History miscarriage july & august 2 009 Medical History MRI Lumbar Spine 03-29-11; [facility] Medical History UGI; 07-22-11; [facility] Medical History Gallbladder US; 07-22-11 [facility] Medical History 08/06/12 Blood work C BC, [...] perinea l area 09/13/2022 Hospitalization History Childbirth [facility] Other 10-01-2023 History general Narrative - Reported* Type Description Date Medical History 2006 pelvic exam done Medical History no mammogram Medical History no colonoscopy Medical History no stress test Medical History miscarriage july & august 2 009 Medical History MRI Lumbar Spine 03-29-11; [facility] Medical History UGI; 07-22-11; [facility] Medical History Gallbladder US; 07-22-11 [facility] Medical History 08/06/12 Blood work C BC, CMP, LIpid, HGA1C (5.1) T4, TSH, Medical History 04/2015 Mammogram Medical History hysterectomy 12/17/15 Medical History 04/13/2018 Stress test Medical History 06/2020 EGD and Colonoscopy - Dr Arriola Medical History 03/19/2022 Covid + Medical History 08/2023 EKG at [facility] Surgical History right foot toe surgery - toe [place] Surgical History bladder sling Surgical History gallbladder removed by Dr. Iliana espinosa 07/15/14 Surgical History hysterectomy ( still has ovarie s) - Dr. 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 Jun, Hypertension (ICD-10 - I10) Blood [...] will look into a therapist/counse david at [facility]. Jun, Hyperglycemia (ICD-1 0 - R73.9) Blood work ordered , pt encourged to have this collected. Jun, Hyperlipidemia (ICD-10 - E78.5) Blood work ordered Jun, Anxiety and depression (ICD-10 - F41.9) Pt is to continue with the above medication and we will continue to monitor. [facility] Other 09-07-2023 Evaluation note* Encounter Date Diagnosis Assessment Notes Treatment Notes Treatment Clinical Notes Jun, Body mass index [BMI] 30.0-30.9, adult (ICD-10 - Z68.30) [facility] Other 05-08-2023 Evaluation note* Encounter Date Diagnosis Assessment Notes Treatment Notes Treatment Clinical Notes February, Hypertension (ICD-10 - I10) [facility] Other 05-05-2023 Evaluation note* Encounter Date Diagnosis [...] to continue with the above medication regimen. [facility] Other 05-02-2023 Hospital Discharge instructions Patient Education [...] if you start to feel better. Take trcf-vgv-btzymyv and prescription medicines only as told by [...] provider. Document Revised: 05/29/2021 Document Reviewed: 05/29/2021 [employer] Patient Education 2022 [employer]. Follow Up Care 02/04/2023 18:51:23 With:MICHEAL DASH Address: [address] [place] [address] Business (1) When:02/07/2023 20:18:24 Comments:Take the antibiotics twice a day as prescribed till you have completed the course you can use the Bentyl, Zofran every 6-8 hours as needed for nausea and abdominal pain. Please follow-up with your primary care doctor in the next 2 to 3 days. Please return to the ED for any new or worsening symptoms. [facility]05-02-2023 Evaluation + Plan noteExtracted from: Title:ED Note [...] Panel Lipase Level UA With Cult Reflex [facility]04-14-2023 Evaluation note* Encounter Date Diagnosis Assessment Notes [...] water intake. We will continue to monitor. [facility] Other 03-28-2023 Evaluation note* Encounter Date Diagnosis Assessment Notes Treatment Notes Treatment Clinical Notes Dec, BMI 32.0-32.9,adult (ICD-10 - Z68.32) Dec, Prediabetes (ICD-10 - R73.03) [facility] Other 03-24-2023 Evaluation note* Encounter Date Diagnosis [...] further evaluate. Patient is agreeable. Order provided. [facility] Other 03-13-2023 Evaluation note* Encounter Date Diagnosis [...] COVID POSITIVE education handout discharge instructions. given. [facility] Other 03-10-2023 Evaluation note* Encounter Date Diagnosis [...] after use. We will continue to monitor. [facility] Other 01-11-2023 Evaluation note* Encounter Date Diagnosis Assessment Notes Treatment Notes Treatment Clinical Notes Oct, Recurrent cough (ICD-10 - R05.8) [facility] Other 12-30-2022 Evaluation note* Encounter Date Diagnosis [...] is to check blood pressures at home. [facility] Other [id number] NoteEXAMINATION: XR ABD FLAT UP_PA CH HISTORY: [...] Electronically authenticated by: LUPE ONTIVEROS Date: 2022-09-18 09:27[facility]12-09-2022 Hospital Discharge instructions Additional Instructions DISCHARGE [...] 4 weeks. -The office phone number is [[phone]]. [ ][facility] Work Phone: 1(111) 716-268510-19-2022 Evaluation note* Encounter Date Diagnosis Assessment Notes [...] home and continue taking her medications regularly. [facility] Other 10-01-2022 History general Narrative - Reported* Type Description Date Medical History 2006 pelvic exam done Medical History no mammogram Medical History no colonoscopy Medical History no stress test Medical History miscarriage july & august 07 009 Medical History MRI Lumbar Spine 03-29-11; [facility] Medical History UGI; 07-22-11; [facility] Medical History Gallbladder US; 07-22-11 [facility] Medical History 08/06/12 Blood work C BC, CMP, LIpid, HGA1C (5.1) T4, TSH, Medical History 04/2015 Mammogram Medical History hysterectomy 3/13/16 Medical History 04/13/2018 Stress test Medical History 06/2020 EGD and Colonoscopy - Dr Arriola Medical History 03/19/2022 Covid + Surgical History right foot toe surgery - toe na [place] Surgical History bladder sling Surgical History gallbladder removed by Dr. Iliana espinosa 07/15/14 Surgical History hysterectomy ( still has ovarie s) - Dr. Aj 01/04/16 Hospitalization History Childbirth [facility] 10-01-2022 History general Narrative - Reported* Type Description Date Medical History 2006 pelvic exam done Medical History no mammogram Medical History no colonoscopy Medical History no stress test Medical History miscarriage july & august 07 009 Medical History MRI Lumbar Spine 03-29-11; [facility] Medical History UGI; 07-22-11; [facility] Medical History Gallbladder US; 07-22-11 [facility] Medical History 08/06/12 Blood work C BC, [...] perinea l area 09/13/2022 Hospitalization History Childbirth [facility] Other 09-22-2022 Evaluation note* Encounter Date Diagnosis Assessment Notes Treatment Notes Treatment Clinical Notes Jun, Hypertension (ICD-10 - I10) [facility] Other 08-18-2022 Evaluation note* Encounter Date Diagnosis [...] - M99.02) OMT provided in the office. [facility] Other 08-09-2022 Evaluation note* Encounter Date Diagnosis Assessment Notes Treatment Notes Treatment Clinical Notes May, Polymyalgia (ICD-10 - M35.3) Patient was recently in the [facility], she reports she woke up in [...] is to continue on the above medications. [facility] Other 08-01-2022 Evaluation note* Encounter Date Diagnosis Assessment Notes Treatment Notes Treatment Clinical Notes May, Persistent cough (ICD-10 - R05.3) Patient has a chronic residual cough s/p covid from March. She has been to see pulmonology but did not see physician. Did see SOAKER HELPER in office. . The Breztri and nebulizer [...] evaluated by pulmonary office and did see SOAKER HELPER, not the physician. [facility] Other 07-11-2022 Evaluation note* Encounter Date Diagnosis Assessment Notes Treatment Notes Treatment Clinical Notes Apr, Shortness of breath (ICD-10 - R06.02) Apr, History of COVID-19 (ICD-10 - Z86.16) [facility] Other 05-05-2022 Evaluation note* Encounter Date Diagnosis Assessment Notes Treatment Notes Treatment Clinical Notes February, Hypertension (ICD-10 - I10) [facility] Other 05-03-2022 Evaluation note* Encounter Date Diagnosis [...] to follow with Dr. Clark as scheduled. [facility] Other 04-26-2022 Evaluation note* Encounter Date Diagnosis Assessment Notes Treatment Notes Treatment Clinical Notes Jan, Hypertension (ICD-10 - I10) [facility] Other 03-01-2022 Evaluation note* Encounter Date Diagnosis [...] above medication. Kenalog administered in office today. [facility] Other 02-02-2022 Evaluation note* Encounter Date Diagnosis [...] dysfunction of sacral region (ICD-10 - M99.04) [facility] Other 12-18-2021 Evaluation note* Encounter Date Diagnosis [...] in agreement. We will continue to monitor. [facility] Other 11-01-2009 History general Narrative - Reported* Type Description Date Medical History 2006 pelvic exam done Medical History no mammogram Medical History no colonoscopy Medical History no stress test Medical History miscarriage july & august 07 009 Medical History MRI Lumbar Spine 03-29-11; [facility] Medical History UGI; 07-22-11; [facility] Medical History Gallbladder US; 07-22-11 [facility] Medical History 08/06/12 Blood work C BC, [...] - Dr. Aj 01/04/16 Hospitalization History Childbirth [facility] Other 11-01-2009 History general Narrative - Reported* Type Description Date Medical History 2006 pelvic exam done Medical History no mammogram Medical History no colonoscopy Medical History no stress test Medical History miscarriage julyaugust 07 009 Medical History MRI Lumbar Spine 03-29-11; [facility] Medical History UGI; 07-22-11; [facility] Medical History Gallbladder US; 07-22-11 [facility] Medical History 08/06/12 Blood work C BC, [...] - Dr. Aj 01/04/16 Hospitalization History Childbirth [facility] Other 11-01-2009 History general Narrative - Reported* Type Description Date Medical History 2006 pelvic exam done Medical History no mammogram Medical History no colonoscopy Medical History no stress test Medical History miscarriage julyaugust 07 009 Medical History MRI Lumbar Spine 03-29-11; [facility] Medical History UGI; 07-22-11; [facility] Medical History Gallbladder US; 07-22-11 [facility] Medical History 08/06/12 Blood work C BC, [...] perinea l area 09/13/2022 Hospitalization History Childbirth [facility] Other Evaluation + Plan note Future Appointments Appointment Date:12/26/2023 02:45:00 PM Scheduled Provider:Aly Castellanos MD Location:[facility] Appointment Type:Cardiology Follow Up (FT) Future Scheduled Tests Radiology* EC Stress Echo Complete w/ Contrast 10/30/23 * Echo Transthoracic [facility] Future Appointments Appointment Date:12/16/2023 01:00:00 PM Scheduled Provider: [facility] Type:CV Echo Stress (FT) Appointment Date:12/26/2023 02:45:00 PM Scheduled Provider:Aly Castellanos MD [facility] App[facility] Type:Cardiology Follow Up (FT) Future Scheduled Tests Radiology* EC Stress Echo Complete, Transthoracic 11/21/23 * EC Stress Echo Complete w/ Contrast [facility]23 [facility] Future Appointments Appointment Date:12/26/2023 02:45:00 PM Scheduled Provider:Aly Castellanos MD Location:[facility] Appointment Type:Cardiology Follow Up (FT) Future Scheduled Tests Radiology* EC Stress Echo Complete, Transthoracic 11/21/23 [facility] noteNo InformationNort Do[employer]lr Other Evaluation noteNo assessment information available [facility] Work Phone: evaluation note* Author Alejandra Peng [facility] Authored November 28, 2023 11:49am Sooner if needed, the ER if concerns,The above note written by Alejandra Peng LPN acting as human recorder, note dictated by Dr. Micheal Bowling [facility] Work Phone: Evaluation note* Author Leanne Gamino [facility] Authored March 02, 2024 3:51p m The above note written by Tal GARNICA acting as human recorder, note dictated by Dr. Micheal Bowling. [facility] Work Phone: Evaluation note* Diagnosis Upper respiratory tract infection, unspecified type- Primary Pharyngitis, unspecified etiology documented [facility] encounter [facility]* Author Debbie Mace [facility] Authored August 26, 2024 3:12pm The above note written by NAHUN Cherry acting as human recorder, note dictated by Dr. Micheal Bowling. [facility] Work Phone: Evaluation note* Diagnosis Encounter for gynecological examination without abnormal finding Encounter for Papanicolaou smear of vagina Breast cancer screening by mammogram documented in this encounter [facility] HealthcareHospital course Narrative No data available for this section [facility] Discharge instructions No data available [facility] section [facility] No data available for this section [facility] Summary Purpose Family History No Family History [...] (E66.9) Diagnosis 4 Hypertension (I10) Referral Organization [facility] [place] Referring Provider First Name Micheal Referring Provider Last Name Dash Referring Provider Specialty Family Prac amanda Referred Organization [facility] Referred Provider Aly Castellanos Referred Address [address] [place], [place],[address] Referred Provider Specialty Cardiology Referral Priority Routine General Notes Andria Reilly 11:25:03 AM >received today, holding referral for note to be locked Andria Reilly 09/08/2023 12:53:36 PM >note is not locked, still holding referral Andria Reilly 09/09/2023 11:43:04 AM >not locked yet Reason CANCELLED consult and treat Diagnosis 1 Recurrent cough (R05 .8) Referral Organization [facility] [place] Referring Provider First Name Micheal Referring Provider Last Name Dash Referring Provider Specialty Family Prac amanda Referred Organization [facility] Pulmonary Dise ase Referred Provider Macey Floyd Referred Address [address] [facility] [address],[place], [place],[address] Referred Provider Specialty Nurse Pracreyna orellanaonemolly Referral Priority Routine General Notes [facility] 023 10:36:46 AM >Received today and all test have been completed at [facility]. Sent P2P [facility] 10/17/2022 01:25:39 PM >Patient has been scheduled [facility] 11/07/2022 07:45:54 AM >Patient cancelled appt. Stating she will call back to reschedule. Will give her a week and if she is not rescheduled then I will let Dr. Bowling know and give her another week to reschedule [facility] 11/07/2022 07:49:27 AM >Per incoming referral. Patient is seeing Dr. Lieberman at [facility] and did not want to reschedule. Telephone encounter was sent Reason consult and treat; S OB, Hx of COVID PFT and Chest Xray ordered Diagnosis 1 Shortness of breath (R06.02) Diagnosis 2 History of COVID-19 (Z86.16) Referral Organization [facility] [place] Referring Provider First Name Micheal Referring Provider Last Name Dash Referring Provider Specialty Family Prac amanda Referred Organization [facility] Referred Provider Lavinia Lieberman Referred Address ,[place], [place],[address] Referred Provider Specialty Pulmonary Adele fabian Referral [...] Obesity Dysuria BMI 31.0-31.9,adult Chief Complaint r/s January Apt adipex Amb Documentation r63.5 [...] 2024 1:26pm Somatic dysfunction of sacral region Amadeo 2024 1:26pm Somatic dysfunction of spine, cervical J anuary 2024 1:26pm Somatic dysfunction of thoracic region J anuary 2024 1:26pm Trochanteric bursitis [facility] 2024 1:26pm Nausea October 21, 2024 1 [...] 2024 1:26pm [facility]chanteric [facility] 2024 1:26pm Elevated C-reactive protein October 1:26pm Nausea October 21, 2024 1 :26pm Chief Complaint Admit Date omt- neck August 26, 2024 1:29pm r/s 5 week f/u October 21, 2024 1 :26pm e78.5 e03.9 r73.9 October 28, 2024 7 :23am pressure headaches November 11, 2024 1 2:59pm Reason for Visit Admit Date Cervical spine [...] :26pm Somatic dysfunction of lumbar region Oct 2024 1:26pm Somatic dysfunction of rib cage region J anuary 2024 1:26pm Somatic dysfunction of sacral region Amadeo [facility] 2024 1:26pm Somatic dysfunction of spine, cervical J anuary 2024 1:26pm Somatic dysfunction of thoracic region J anuary 2024 1:26pm Trochanteric bursitis of right hip 2024 1:26pm Elevated C-reactive protein October 1:26pm Nausea October 21, 2024 1 :26pm Elevated C-reactive protein (CRP) 2024 12:59pm Elevated lipoprotein A level November 12:59pm Headache November 11, 2024 1 2:59pm Chief Complaint Admit Date r/s 5 week f/u October 21, 2024 1 :26pm e78.5 e03.9 r73.9 October 28, 2024 7 :23am pressure headaches November 11, 2024 1 2:59pm R51.9 Z82.49 R79.82 November 25, 2024 12:07pm Reason for Visit Admit Date Anxiety and depression October 21 1:26pm Lumbar back pain October 21, 2024 1 :26pm Somatic dysfunction of lumbar region Amadeo [facility] 2024 1:26pm Somatic dysfunction of rib cage region J anuary 2024 1:26pm Somatic dysfunction of sacral region Amadeo [facility] 2024 1:26pm Somatic dysfunction of spine, cervical J anuary 2024 1:26pm Somatic dysfunction of thoracic region J anuary 2024 1:26pm Trochanteric bursitis of right hip 2024 1:26pm Elevated C-reactive protein October 1:26pm Nausea October 21, 2024 1 :26pm Elevated C-reactive protein (CRP) 2024 12:59pm Elevated lipoprotein A level November 12:59pm Family history of brain aneurysm 2024 12:59pm Gastroenteritis November 11, 2024 1 2:59pm Intractable headache November 11, 2024 12:59pm Chief Complaint Admit Date r/s 5 week f/u October 21, 2024 1 :26pm e78.5 e03.9 r73.9 October 28, 2024 7 :23am pressure headaches November 11, 2024 1 2:59pm R51.9 Z82.49 R79.82 November 25, 2024 12:07pm 6 week f/u December 16, 2024 1:2 7pm Reason for Visit Admit Date Anxiety and depression October 21 1:26pm Lumbar [...] 1:26pm Nausea October 21, 2024 1 :26pm Elevated C-reactive protein (CRP) 2024 12:59pm Elevated lipoprotein A level November 12:59pm Family history of brain aneurysm uar 2024 12:59pm Gastroenteritis November 11, 2024 1 2:59pm Intractable headache November 11, 2024 12:59pm Anxiety and depression December 16, 2024 1:27pm Intractable headache December 16, 2024 1: 27pm Sinusitis December 16, 2024 1:2 7pm Chief Complaint Admit Date r/s 5 week f/u October 21, 2024 1 :26pm e78.5 e03.9 r73.9 October 28, 2024 7 :23am pressure headaches November 11, 2024 1 2:59pm R51.9 Z82.49 R79.82 November 25, 2024 12:07pm 6 week f/u December 16, 2024 1:2 7pm solu medrol 125 mg per bpk January 05 7:30am Reason for Visit Admit Date Anxiety and depression October 21 1:26pm Lumbar back pain October 21, 2024 1 :26pm Somatic dysfunction of lumbar region Oct 2024 1:26pm Somatic dysfunction of rib cage region J anuary 2024 1:26pm Somatic dysfunction of sacral region Amadeo uary 2024 1:26pm Somatic dysfunction of spine, cervical J anuary 2024 1:26pm Somatic dysfunction of thoracic region J anuary 2024 1:26pm Trochanteric bursitis of right hip Janua ry 2024 1:26pm Elevated C-reactive protein October 1:26pm Nausea October 21, 2024 1 :26pm Elevated C-reactive protein (CRP) ua 2024 12:59pm Elevated lipoprotein A level November 12:59pm Family history of brain aneurysm uar y 2024 12:59pm Gastroenteritis November 11, 2024 1 2:59pm Intractable headache November 11, 2024 12:59pm Anxiety and depression December 16, 2024 1:27pm Intractable headache December 16, 2024 1: 27pm Sinusitis December 16, 2024 1:2 7pm Asthma exacerbation January 05, 2025 7:30 am Additional Source Comments INFORMATION SOURCE (unrecogn ized section and content) DATE CREATED AUTHOR 03/31/2018 [facility] DATE CREATED AUTHOR AUTHOR'S ORGANIZ ATION 04/15/[address] [facility] DATE CREATED AUTHOR AUTHOR'S ORGANIZ ATION 04/15/2018 [facility] DATE CREATED AUTHOR AUTHOR'S ORGANIZ ATION 11/02/2022 [facility]ical Specialist DATE CREATED AUTHOR AUTHOR'S ORGANIZ ATION 01/29/2023 [facility] DATE CREATED AUTHOR AUTHOR'S ORGANIZ ATION 07/28/2024 [facility] d[facility] Specialists EPIC DATE CREATED AUTHOR AUTHOR'S ORGANIZ ATION 11/27/2024 [facility] DATE CREATED AUTHOR AUTHOR'S ORGANIZ ATION 01/09/2025 [facility] REASON FOR VISIT (unrecogniz ed section and content) Reason Comments Gynecologic Exam LMP: JULIUS BS 2016HRT : NoneLast pap 08-13-23 neg.Last mammogram 01-12-24 [...] Active Sta rt: March 22, 2024 NAHUN Lnenon Attending Provider Active Start: March 22, 2024 [...] DO Primary Care Provider Active Maycol Clark , DO Attending Provider Active Team Status: Inactive [...] June 22, 2024 End: June 22, 2024 Supervisor [employer] Relationship Specialty Start Date End Date Micheal Bowling MD [address] [place] [facility] [address] PCP - General 08/13/23 Team Status: Inactive Member Role Status Dates Micheal Bowling DO Primary Care Provide r, Attending Provider Active Start: August 26, 2024 End: August 26, 2024 Supervisor [employer] Relationship Specialty Start Date End Date Micheal Bowling MD [address] [place] [address] PCP - General 08/13/23 Team Status: Inactive Member Role Status Dates Michael Bowling DO Primary Care Provide r, Attending Provider Active Start: October 21, 2024 End: October 21, 2024 Team Status: Inactive Member Role Status Dates Micheal Bowling DO Primary Care Provide r, Attending Provider Active Start: October 28, 2024 End: October 28, 2024 Team Status: Inactive Member Role Status Dates Micheal Bowling DO Primary Care Provide r, Attending Provider Active Start: November 11, 2024 End: November 11, 2024 Team Status: Inactive Member Role Status Dates Micheal Bowling DO Primary Care Provide r, Attending Provider Active Start: November 25, 2024 End: November 25, 2024 Team Status: Inactive Member Role Status Patrick Bowling DO Primary Care Provide r, Attending Provider Active Start: December 16, 2024 End: December 16, 2024 Team Status: Inactive Member Role Status Dates Micheal Bowling DO Primary Care Provide r, Attending Provider Active Start: January 05, 2025 End: January 05, 2025 Goals (unrecognized section and content) Goals may [...] BE BASED ON THE PRIMARY CLINICAL RECORDS. [facility]. provides no warranty or guarantee of the accuracy or completeness of information in this document.
--- NOTE | 2025-01-11 16:52 | ED.GENADUL1 ---
HPI HPI - General Adult General Chief complaint: Shortness of Breath/Dyspnea Stated complaint: Short of Breath Time Seen by Provider: 01/11/25 16:40 Source: patient Mode of arrival: walk-in History of Present Illness HPI narrative: 49 year old female presents to the ED for a cough, chest tightness/SOB. Onset was one month ago. Denies fever, chills, abd pain, N/V. She has been using an inhaler and nebulizer without relief. She takes omeprazole in the morning; she recently started taking Pepcid at night. Related Data Home Medications ?Medication ?Instructions ?Recorded ?Confirmed olmesartan 40 mg tablet 40 mg PO DAILY 07/11/23 08/28/23 omeprazole 40 mg capsule,delayed 40 mg PO DAILY 07/11/23 08/28/23 release ropinirole 1 mg tablet 1 mg PO BEDTIME 07/11/23 08/28/23 spironolactone 25 mg tablet 25 mg PO DAILY 07/11/23 08/28/23 amlodipine 5 mg tablet 5 mg PO DAILY 08/28/23 08/28/23 Previous Rx's ?Medication ?Instructions ?Recorded cetirizine 10 mg capsule (Zyrtec) 10 mg PO DAILY #14 caps 01/11/25 prednisone 20 mg tablet 40 mg (2 x 20 mg) PO DAILY #10 tabs 01/11/25 sucralfate 1 gram tablet (Carafate) 1 g PO Q6H #40 tabs 01/11/25 Allergies Allergy/AdvReac Type Severity Reaction Status Date / Time Penicillins Allergy Verified 07/11/23 20:01 sulfamethoxazole (From Allergy Verified 07/11/23 20:01 Bactrim) trimethoprim (From Bactrim) Allergy Verified 07/11/23 20:01 vancomycin Allergy Verified 07/11/23 20:01 Opioid HPI Opioid Management Most Recent Opioid Data: Last Pain Scale 6 08/28/23 22:11 08/28/23 Review of Systems ROS Constitutional Denies: fever or chills Ears, nose, mouth, and throat Denies: throat pain or neck pain Cardiovascular Denies: chest pain Respiratory Reports: shortness of breath and cough Gastrointestinal Denies: abdominal pain, nausea, vomiting or diarrhea Musculoskeletal Denies: back pain or neck pain Neurological Denies: headache or dizziness PFSH PFSH Social History Smoking status: Former smoker Little interest or pleasure in doing things: not at all Feeling down, depressed, or hopeless: not at all Exam Constitutional Vital Signs, click to edit/add: Last Vital Signs Temp 98.5 F 01/11/25 16:36 Pulse 90 01/11/25 16:36 Resp 18 01/11/25 16:36 BP 111/81 01/11/25 18:00 Pulse Ox 97 01/11/25 17:50 O2 Del Method Room Air 01/11/25 16:49 HENCO Common normals: normocephalic and moist oral mucous membranes Mouth: oral and palatal mucosa normal and lip normal Throat: posterior oropharynx normal and uvula midline Eye Common normals: conjunctivae normal and no scleral icterus Neck & C-Spine Common normals: supple Chest Common normals: inspection of chest normal Chest: abnormal inspection of the chest and symmetrical chest wall rise Respiratory Common normals: normal respiratory effort and clear to auscultation bilaterally Effort & inspection: able to speak in complete sentences and symmetric chest movement Other: Dry cough noted. Cardio Common normals: regular rate and regular rhythm Neuro Common normals: oriented x3 and moves all extremities Sensorium/orientation: awake and alert Course Vital Signs Vital signs: Vital Signs Temperature 98.5 F 01/11/25 16:36 Pulse Rate 90 01/11/25 16:36 Respiratory Rate 18 01/11/25 16:36 Blood Pressure 133/83 01/11/25 16:36 Pulse Oximetry 98 01/11/25 16:36 Temperature 98.5 F 01/11/25 16:36 Pulse Rate 90 01/11/25 16:36 Respiratory Rate 18 01/11/25 16:36 Blood Pressure 111/81 01/11/25 18:00 Pulse Oximetry 97 01/11/25 17:50 Oxygen Delivery Method Room Air 01/11/25 16:49 Medical Decision Making MDM Narrative Medical decision making narrative: Chest x-ray was negative for acute findings. She has a nebulizer and inhaler at home. She takes omeprazole daily. Prescriptions were provided for Carafate, prednisone, and Zyrtec. Pulmonary function testing was discussed. GERD was discussed. Endoscopy was discussed. Follow up with pcp for a recheck, further evaluation and treatment. Medical Records Medical records reviewed: Yes I reviewed the patient's medical records Imaging Data Chest x-ray: Attestation: I have reviewed the pertinent imaging results. Radiologist's impression: No acute cardiopulmonary process. Discharge Plan Discharge Chief Complaint: Shortness of Breath/Dyspnea Clinical Impression: Cough, Dyspnea Patient Disposition: Home, Self-Care Time of Disposition Decision: 17:49 Condition: Good Mode of Transportation: Private Vehicle Prescriptions / Home Meds: New sucralfate [Carafate] 1 gram tablet 1 g PO Q6H Qty: 40 0RF Zyrtec 10 mg capsule 10 mg PO DAILY Qty: 14 0RF prednisone 20 mg tablet 40 mg PO DAILY Qty: 10 0RF No Action ropinirole 1 mg tablet 1 mg PO BEDTIME omeprazole 40 mg capsule,delayed release(DR/EC) 40 mg PO DAILY spironolactone 25 mg tablet 25 mg PO DAILY olmesartan 40 mg tablet 40 mg PO DAILY amlodipine 5 mg tablet 5 mg PO DAILY Print Language: Spanish Instructions: Dyspnea (ED) Additional Instructions: Follow up with your primary care provider for further evaluation and treatment. Return to the ER for new or worsening symptoms. Referrals: Micheal Ocasio DO [Primary Care Provider] - 1 week Discharge Date/Time: 01/11/25 18:01
[2025-01-11] MEDS: CETIRIZINE HCL 10 MG TABLET PO (17:16)
[2025-01-11] MEDS: lidocaine HCL 15 ML, MAG HYDROX/ALUMINUM HYD/SIMETH 30 ML, HYOSCYAMINE SULFATE 0.25 MG PO (17:17)
== END 2025-01-11 18:01 | disposition home or self-care (01) ==
PROVIDERS: Emergency Provider Emergency Medicine; PCP Family Medicine
DX: R06.00 Dyspnea, unspecified (principal); R05.9 Cough, unspecified; Z87.891 Personal history of nicotine dependence
CPT/HCPCS: 71046; 99283

== ENCOUNTER 2025-07-27 07:25 | Emergency (ER) | payer BC, SELFPAY ==
[2025-07-27] VITALS (9 sets, daily range): BP systolic 146; BP diastolic 88; PULSE 70–80; TEMP 36.9; O2SAT 95–98; BMI 31.1
--- OUTSIDE RECORDS SUMMARY | 2025-07-27 07:51 | XMS_ITS | Clinical Summary ---
Author Organization [facility] Address [address] [place] [address] Phone Care Team Providers [facility] [employer] Name Role Phone Unavailable Primary Care Provider Unavailabl e Social History Tobacco UseTypesPacks/DayYears UsedDateSmoking Tobacco: Never Assessed CommentsUnknownSex and Gender InformationValueDate RecordedSex Assigned at Not on fileLegal AwyBksqyv09/25/2022 10:21 AM ESTGender IdentityNot on file Sexual OrientationNot on file Plan of Treatment Health MaintenanceDue DateLast DoneCommentsCT Rfihxplfdkxe56/01/1978Colonoscopy 1977Colorectal Cancer Oicguwitj26/01/1978FIT-DNA (Cologuard)1977FIT 1977HIV Ssgrfapoi61/01/1978Lipid Panel1977 9499Ibhnxwpqodkee57/01/1978 Yearly Adult Qpoqbjap97/01/1978MMR Vaccines (1 of 1 - Standard series)1978 Hepatitis C Rwcottgnx14/01/1996Hepatitis B Vaccines (1 of 3 - 19+ 3-dose series) 1996Cervical Cancer Fzzplpkpx13/01/1999HPV/Nlwfdg5512/04/1998Pap Smear 1998DTaP/Tdap/Td Vaccines (1 - Tdap)12/05/19993872Vjskyrhhp04/01/2018Influenza Vaccine (#1)5COVID-19 Vaccine ( - 2024- season)2025Zoster Vaccines (1 of 2)12/05/2027HIB VaccinesAged OutNo longer eligible based on patient's age to complete this topicHPV VaccinesAged OutNo longer eligible based on patient's age to complete this topicHepatitis A VaccinesAged OutNo longer eligible based on patient's age to complete this topicIPV VaccinesAged OutNo longer eligible based on patient's age to complete this topicMeningococcal VaccineAged OutNo longer eligible based on patient's age to complete this topic Pneumococcal Vaccine: Pediatrics and At-Risk Adult PatientsAged OutNo longer eligible based on patient's age to complete this topicRotavirus VaccinesAged Out No longer eligible based on patient's age to complete this topic
--- OUTSIDE RECORDS SUMMARY | 2025-07-27 07:51 | XMS_ITS | Clinical Summary ---
Author Organization [facility] Address [address] [place] [address] Care Team Providers Care Patient Partner Name Role Phone Guyalix Micheal Leigh EPSTEIN Primary Care Provider [phone] Allergies Active AllergyReactionsCriticalityNoted ExvwXjjsxfqkEotalbksgwmdeTijp61/24/2024 Other Reaction(s): polyarthralgia WdszdyxpFnhmq01/24/2024Clavulanic AcidGI scnxrziscip92/24/2024Cyclobenzaprine 01/28/2024 Other Reaction(s): jittery MethylprednisoloneGI nmmidhhhplu34/24/4428Wdhonqfpmpq52/17/2023 Other Reaction(s): Hives Eydpvvuxonx89/24/2024 Other Reaction(s): Rapid heart rate Phgexangerjcytbl06/17/2023 Other Reaction(s): GI issues Sulfamethoxazole-Xjxbrnxifozc64/17/2023 Other Reaction(s): vomiting Gdyennsn94/24/2024 Other Reaction(s): jittery Ftlfmgjhyzgu66/17/2023 Other Reaction(s): unknown Ncgwiurcku74/17/2023 Other Reaction(s): hives Medications MedicationSigDispense QuantityRefillsLast FilledStart DateEnd DateStatus albuterol HFA 90 mcg/act inhaler every 4 (four) hours.Active olmesartan (BENIcar) 40 MG tablet TAKE 1 TABLET BY MOUTH EVERY DAY FOR 90 DAYSActive omeprazole (PriLOSEC) [address] capsule 1 (one) time each day at the same time.Active spironolactone (Aldactone) 25 MG tablet TAKE 1 TABLET BY MOUTH EVERY DAY FOR 90 DAYSActive amLODIPine (Norvasc) 5 MG tablet Take 5 mg by mouth in the morning and 5 mg before bedtime.Active tiZANidine (Zanaflex) 4 MG tablet if lsyzfe2111/27/2023ctive MAGNESIUM PO Take 1 capsule by mouth 3 (three) times a weekActive linaCLOtide (Linzess) 72 MCG capsule Take 72 mcg by mouth if truupd4408/26/2024ctive furosemide (Lasix) 20 MG tablet Take 20 mg by mouth if neededActive liothyronine (Cytomel) 5 MCG tablet Indications:ESS (euthyroid sick syndrome),Chronic fatigueTake 1.5 tablet in AM and 1.5 tablet in PM on an empty stomach. CHIDI; Think Realtime or Intrakr brands only 270 tablet 04/21/2025tive Additional Information Patient not taking.Reason: Not available, Reported on 06/13/2025 metFORMIN XR (Glucophage-XR) 500 MG 24 hr tablet Indications:Insulin resistanceTake 1 tablet (500 mg) by mouth in the morning and 1 tablet (500 mg) before bedtime. Do not crush, chew, or split. 60 tablet 5Active azithromycin (Zithromax) 250 MG tablet Indications:BronchitisTake 2 tabs on day 1 and 1 tab on days 2-5 then stop 6 tablet 06/13/2025tive axugwygtbcaphmu-qjzhlixgmmobrmq-FR 30-2-10 MG/5ML syrup Indications:Acute coughTake 10 mL by mouth every 8 (eight) hours if needed for congestion or cough 120 mL 06/13/2025tive clobetasol (Temovate) 0.05 % ointment Indications:Eczema, dyshidroticApply topically in the morning and before bedtime. Apply to affected area BID for 5 days. 45 g 5Active Active Problems ProblemNoted DateDiagnosed DateESS (euthyroid sick syndrome)04/11/2025hronic erukjim7604/11/2025Insulin qlyfoepoju66/25/2025Reactive nwpyrmaqufdi92/25/2025 Allergic rhinitis due to animal sgtemw5904/19/2024Non morbid obesity due to excess rgnsowsc01/15/2024iffuse cystic mastopathy of left yutklr8204/19/2024iffuse cystic mastopathy of right jollxw0304/19/2024Essential wkxmiilccjsl75/15/2024 Anxiety and gwkeyjtept18/15/2024GERD (gastroesophageal reflux disease)04/19/2024 Qrdqqkqbxtwfx65/15/4691Vmbvurarskapld18/15/7973Mzpkujzfmqd77/15/2024IBS (irritable bowel syndrome)04/19/20246146Whvuovhz77/15/2024Major depression, single jxdjdaq0204/19/20244525Kxavlzfr90/15/2024lantar fasciitis of left foot04/19/2024 Reactive limpfuosviryplz92/15/2024Severe persistent golrdu0004/19/2024Trochanteric bursitis of right hip04/19/2024Urge incontinence of urine04/19/2024 Resolved Problems ProblemNoted DateDiagnosed DateResolved DateObesity (BMI 30-39.9)04/19/2024 04/11/2025 Encounters DateTypeDepartmentCare LsbzCgnaxhuwbhp88/24/2025 3:30 PM EDTClinical Support [facility] [address] [place] [address] Shelby Mobley CCC-A Bilateral hearing loss, unspecified hearing loss type (Primary Dx)06/29/2025 Bamboo flowsheet [facility] [address] [place] [id number] Shelby Mobley CCC-A 06/16/2025 3:00 PM EDTAncillary Procedure [facility] [address] [place] [address] Breast cancer screening by nbetmkuxh05/11/5384Hqopmb57/10/2005Chnuyr17/08/2025 1:55 PM EDTOffice Visit [facility] [address] [place] [address] 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, 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 Acute cough (Primary Dx); Bronchitis; Eczema, rocectoaijx67/08/7089Yzlkcu63/18/2025Telephone [facility] [address] [place] [phone] Yeakle, Bertha, MA Care Coordinationfrom Last 3 Months Immunizations ImmunizationAdministration DatesNext DueInfluenza, injectable, quadrivalent, preservative free08/13/2021,06/06/2020Influenza, seasonal, intradermal, preservative free08/04/2018 Family History Medical HistoryRelationNameCommentsNo Known ProblemsBrotherDiabetesFatherDad Heart attackFatherDadtriple bypassHeart diseaseFatherDadHypertensionFatherDadNo Known ProblemsMaternal GrandfatherCancerMaternal GrandmotherGrandma connieBroken bonesMotherMomDiabetesMotherMomHypertensionMotherMomOsteoarthritisMotherMom OsteoporosisMotherMomStrokeMotherMomHypertensionOtherspouseHeart diseasePaternal GrandfatherRelationNameStatusCommentsBrotherAlive2, healthyDaughterAliveFather DadAliveMaternal GrandfatherDeceasedMaternal GrandmotherGrandma connieDeceased MotherMomAliveOtherspouseAlivePaternal GrandfatherDeceasedPaternal Grandmother AliveSonAlive Social History Tobacco UseTypesPacks/DayYears UsedDateSmoking Tobacco: NeverSmokeless Tobacco: Never Tobacco Cessation:Counseling Given: Yes Alcohol UseStandard Drinks/WeekCommentsYes6 (1 standard drink = 0.6 oz pure alcohol)Caffeine intake: 2-3 cups per mosE4295 Health LiteracyAnswerDate RecordedHow often do you need to have someone help you when you read instructions, pamphlets, or other written material from your doctor or pharmacy? Rquthunsf01/10/2025Social Connection and Isolation PanelAnswerDate RecordedIn a typical week, how many times do you talk on the phone with family, friends, or neighbors?More than three times a week04/14/2025How often do you get together with friends or relatives?Once a week04/14/2025How often do you attend scientology or presybeterian services?Never04/14/2025Do you belong to any clubs or organizations such as scientology groups, unions, fraternal or athletic groups, or school groups?No 04/14/2025How often do you attend meetings of the clubs or organizations you belong to?Never04/14/2025re you , , , , never , or living with a partner?Urbkcug4104/14/2025UDIT-CAnswerDate RecordedQ1: How often do you have a drink containing alcohol?Monthly or less04/14/2025Q2: How many drinks containing alcohol do you have on a typical day when you are drinking?3 or Q3: How often do you have six or more drinks on one occasion?Less than xeooonm8604/14/2025Overall Financial Resource Strain (CARDIA) AnswerDate RecordedHow hard is it for you to pay for the very basics like food, housing, medical care, and heating?Somewhat hard04/14/2025PHQ-2AnswerDate RecordedPatient Health Questionnaire-2 Jdioo70811/09/2023[facility] [place] [facility] - Occupational Stress QuestionnaireAnswerDate RecordedDo you feel stress - tense, restless, nervous, or anxious, or unable to sleep at night because yourmind is troubled all the time - these days?Very much04/14/2025 Exercise Vital SignAnswerDate RecordedOn average, how many days per week do you engage in moderate to strenuous exercise (like a brisk walk)?0 days04/14/2025On average, how many minutes do you engage in exercise at this level?0 min 04/14/2025Hunger Vital SignAnswerDate RecordedWithin the past 12 months, you worried that your food would run out before you got the money to buymore.Never true04/14/2025Within the past 12 months, the food you bought just didn't last and you didn't have money to get more.Never true04/14/2025PRAPARE - TransportationAnswerDate RecordedIn the past 12 months, has lack of transportation kept you from medical appointments or from getting medications?No 04/14/2025In the past 12 months, has lack of transportation kept you from meetings, work, or from getting things needed for daily living?No04/14/2025 Housing Stability Vital SignAnswerDate RecordedIn the last 12 months, was there a time when you were not able to pay the mortgage or rent on time?Yes04/14/2025 In the past 12 months, how many times have you moved where you were living?0 04/14/2025t any time in the past 12 months, were you homeless or living in a [place] (including now)?No04/14/2025CommentsNoSex and Gender Information ValueDate RecordedSex Assigned at QtgubYhzbai66/17/2025 1:26 PM ESTLegal Sex Nzydyu9412/18/2022 7:12 PM EDTGender LsqadzifImvgbm47/17/2025 1:26 PM ESTSexual IrdbwbdtallPfldibfk51/17/2025 1:26 PM EST Last Filed Vital Signs Vital SignReadingTime TakenCommentsBlood Ownixaug205/8806/13/2025 2:01 PM EDT Okzxx823506/13/2025 2:01 PM LSLWnlgnbohhhu41.6 ??C (97.8 ??F)06/13/2025 2:01 PM EDTRespiratory Rate--Oxygen Uazaniyczz14%06/13/2025 2:01 PM EDTInhaled Oxygen Concentration--Xhpeos99.2 kg (168 lb)06/13/2025 2:01 PM MLQVnfayq672.6 cm (4' 10.5 )04/21/2025 10:41 AM EDTBody Mass Index34.51004/21/2025 10:41 AM EDT Plan of Treatment Health MaintenanceDue DateLast DoneCommentsCT Cawpzrmfcpou14/01/1978Colonoscopy 1977Colorectal Cancer Zahjncafs40/01/1978FIT-DNA1977FIT1977 FOBT1977 6876Ysyoekzaidfyn59/01/1978Influenza Vaccine (#1)511/05/2021, 06/06/2020, 08/04/20188567Iebqrhlfe24/11/202609/08/2025, 01/12/2024, 11/22/2022, Additional history existsCervical Cancer ScreeningDiscontinuedHPV/Cotest Jpgssvawkxjy17/04/2024ap SmearDiscontinued Procedures Procedure NamePriorityDate/TimeAssociated DiagnosisCommentsAUDITORY FUNCTION DVAZWWmbsivy17/24/2025 4:27 PM EDT BI MAMMOGRAM SCREENING TOMOSYNTHESIS AGLNOZLLYUnlnbxm10/11/2025 2:10 PM EDT Breast cancer screening by mammogram IGP,RFXAPTIMA HPV ALL,16/18,21Ipphdxy75/04/2024 12:00 AM EST Encounter for Papanicolaou smear of vagina from Last 3 Months or Most Recently Relevant to Health Maintenance Results * Auditory function tests (06/29/2025 4:27 PM EDT) Narrative Shelby Mobley, [facility] - 06/29/2025 4:27 PM EDT Bilateral normal heairng Authorizing ProviderResult TypeResult StatusDesegun Mobley [facility]AA[facility]IOLOGY SERVICES ORDERABLESFinal Result * Bilateral screening mammogram with tomosynthesis (06/16/2025 2:10 PM EDT) Anatomical RegionLateralityModalityBreastBilateralMammographySpecimen (Source) Anatomical Location / LateralityCollection Method / VolumeCollection Time Received Time06/16/2025 2:48 PM EDT Impressions 06/16/2025 2:53 PM EDT Impression: No specific evidence of malignancy seen in either breast. BIRADS 2 - Benign Findings DENSITY: There are scattered areas of fibroglandular density. FOLLOW-UP: Routine Screening Mammogram ELECTRONICALLY SIGNED BY: Sergio Amador M.D. Narrative 06/16/2025 2:53 PM EDT Examination: BI MAMMOGRAM SCREENING TOMOSYNTHESIS BILATERAL Clinical History: screening Technique: Screening digital mammography study of both breasts was performed with 2-D and 3-D tomosynthesis imaging. Study was compared to the prior exam dated 01/12/2024. Findings: There is no evidence of interval dominant spiculated mass, grouped microcalcifications, or skin thickening which would be suggestive of malignancy. ?? Axillary lymph nodes including partially visualized lymph nodes are noted bilaterally and appear grossly unremarkable. Procedure Note Sergio Amador MD - 06/16/2025 Examination: BI MAMMOGRAM SCREENING TOMOSYNTHESIS BILATERAL Clinical History: screening Technique: Screening digital mammography study of both breasts wasperformed with 2-D and 3-D tomosynthesis imaging. Study was compared tothe prior exam dated 01/12/2024. Findings: There is no evidence of interval dominant spiculated mass,grouped microcalcifications, or skin thickening which would be suggestiveof malignancy. Axillary lymph nodes including partially visualized lymph nodes are noted bilaterally and appear grossly unremarkable. IMPRESSION: Impression: No specific evidence of malignancy seen in either breast. BIRADS 2 - Benign Findings DENSITY: There are scattered areas of fibroglandular density. FOLLOW-UP: Routine Screening Mammogram ELECTRONICALLY SIGNED BY: Sergio Amador M.D. Authorizing ProviderResult TypeResult StatusWilliam Harish Clark DOIMG BI PROCEDURES Final Result * IGP,rfxAptima HPV all,16/18,45 (09/08/2024 12:00 AM EST)ComponentValueRef RangeTest MethodAnalysis TimePerformed AtPathologist SignatureDiagnosis: CommentLABCORPComment:NEGATIVE FOR INTRAEPITHELIAL LESION OR MALIGNANCY. Specimen Adequacy:CommentLABCORPComment: Satisfactory for evaluation. ??No endocervical cells are present. ??This is consistent with a history of hysterectomy. Clinician Provided ICD10:CommentLABCORPComment:Z12.72Performed By:CommentLABCORP Comment:Emeka Orlando, Weight Loss Physician ([facility])Cyto Comments.LABCORPNote:Comment [facility]ABC[facility]PComment: The Pap smear is a screening test designed to aid in the detection of premalignant and malignant conditions of the uterine cervix. ??It is not a diagnostic procedure and should not be used as the sole means of detecting cervical cancer. ??Both false-positive and false-negative reports do occur. Test Methodology:CANCELEDLABCORPComment: The Thin Prep(R) Linux Unix Engineer was unable to read this specimen. ??Therefore a manual review was performed. Result canceled by the ancillary. .CommentLABCORPComment: The HPV DNA reflex criteria were not met with this specimen result therefore, no HPV testing was performed. Specimen (Source)Anatomical Location / LateralityCollection Method / Volume Collection TimeReceived TimeSwabVaginal structure / Qepqitj12/02/2024 Comment:Vagina LMP: LAVH BS 20 Narrative [facility] - 09/14/2024 3:07 PM EST Performed at: 01 - [facility] [address] [place] [id number] Billiard Table Repairer: Karo Coronado MD, Phone: ??[phone] Specimen Comment: [id number] Specimen Comment: No. of containers..01 ThinPrep Vial Authorizing ProviderResult TypeResult StatusWilliam D Eduardo WILLIAM CYTOLOGY ORDERABLESEdited Result - FinalPerforming OrganizationAddressCity/State/ZIP Code Phone Number [facility] from Last 3 Months or Most Recently Relevant to Health Maintenance Care Teams Team MemberRelationshipSpecialtyStart DateEnd Date Micheal Ocasio DO [address] [place] [address] PCP - Bavvavp76/8/23
--- NOTE | 2025-07-27 07:52 | ECG_ITS ---
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 Measurements Intervals [place] Rate: 72 P: -51 AR: 152 QRS: 67 QRSD: 86 T: 26 QT: 398 QTc: 422 Interpretive Statements ECTOPIC ATRIAL RHYTHM 2420 RSR (QR) in lead V1/V2, consistent with right ventricular conduction delay 9140 abnormal rhythm ECG Compared to ECG 08/28/2023 22:08:29 No significant changes Electronically Signed On 07-27-2025 23:42:09 EDT by ANGY EMMANUEL M.D.
--- NOTE | 2025-07-27 07:52 | XR_ITS ---
[facility] [place] [id number] Patient Name: BRANDON LONG MRN: [id number] date: 1975 Sex: F Assigned Patient Location: ER Current Patient Location: Accession/Order Number: [id number] Exam Date: 07/27/2025 08:12 Report Date: 07/27/2025 08:51 At the request of: ELENI CERRATO MD Procedure: XR chest 1V PORTABLE AP ERECT CHEST 0751 hours CLINICAL HISTORY: Chest pain and burning with radiation to the back and left arm. COMPARISON: 01/11/2025 The heart is within normal limits. There is no vascular congestion. The lungs, as visualized, are clear. There is no effusion or pneumothorax. The osseous structures are intact. XR/XR chest 1V IMPRESSION: NO ACUTE FINDINGS Impression dictated by: Mini Chandler M.D. 07/27/2025 8:51 AM Dictation Location: [place] [address] Electronically authenticated by: [id number] Y Date: 07/27/2025 08:51
--- OUTSIDE RECORDS SUMMARY | 2025-07-27 07:52 | XMS_ITS | CCD ---
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 Chief Name Role Phone Steph Causey Unavailable Unavailable Family Physician Unavailable Unavailable Jessica vailable Family Physician Unavailable Unavailable Jessica vailable UNKNOWN, PROVIDER Unavailable Unavailable MICHEAL BOWLING Unavailable Unavailable Micheal Bowling Unavailable Dash, DO Burton Primary Care Provider [phone] Dash, DO Burton Attending Provider Dash, DO Burton Primary Care Provider DO Maycol Clark Attending Provider [phone] Macey Floyd Unavailable Macey Licona Unavailable DR [...] Consulting Unavailable MICHEAL BOWLING Primary Care Physician Handys, DO Burton Primary Care Provider [phone] Kuns, DO Burton Attending Provider Barbara Dasilva Unavailable Unavailable Dash, DO Burton Primary Care Provider DO Lamont Long Attending Provider [phone] DO Micheal Bowling Primary Care Provider DO Micheal Bowling Attending Provider Micheal Bowling MD Primary Care Provider Dash EPSTEIN, Micheal Primary Care Provider Dash EPSTEIN, Micheal Attending Provider [phone] Dash EPSTEIN, Micheal Primary Care Provider [phone] Dash EPSTEIN, Micheal Attending Provider [phone] Micheal Bowling DO Primary Care Provider [phone] Dash EPSTEIN, Micheal Primary Care Provider [phone] Dash EPSTEIN, Micheal Attending Provider Irvin Smith Attending Unavailable Rickie Bergeron Attending Unavailable Micheal Bowling DO Primary Care Provider Micheal Bowling DO Primary Care Provider Dash EPSTEIN, Micheal Attending Provider FRAN LOPEZ Attending Unavailable FRAN LOPEZ Referring Unavailable FRAN LOPEZ Attending Unavailable FRAN LOPEZ Attending Unavailable YAMILA CURTIS Attending Unavailable MAYCOL CLARK Referring Unavailable LAN AVALOS Attending Unavailable MAYCOL CLARK Attending Unavailable SHELBY VERGARA Attending Unavailable Micheal Bowling DO Primary Care Provider [phone] Micheal Bowling DO Attending Provider Micheal Bowling Primary Care Unavailable Micheal Bowling Attending Unavailable Micheal Bowling Admitting Unavailable Micheal Bowling Admitting Unavailable Micheal Bowling Primary Care Unavailable Micheal Bowling Attending Unavailable Micheal Bowling Admitting Unavailable Micheal Bowling Primary Care Unavailable Micheal Bowling Attending Unavailable Allergies Allergy ClassificationReported Allergen(s)Allergy TypeDate of OnsetReaction(s) Facility (20 sources)Acetaminophen / traMADolDrug AllergyjittSSM Health [facility] Other (20 sources)Amoxicillin / ClavulanateDrug Allergystomache upsetArbor Health [facility] Other (20 sources)AzithromycinDrug AllergyvomitingNoKind[facility] Other (20 sources)cefdinirDrug AllergyhivesArbor Health Integr[facility] Applications Other (20 sources)cyclobenzaprineDrug AllergyjiMer[facility] Other (20 sources)methylPREDNISoloneDrug Tdhmiok12-46-5580YB intoleranceNorwalk Memorial Hospital (20 sources)Sulfamethoxazole / Trimethoprim; Translations: [sulfamethoxazole-trimethoprim]Drug Iybblkp63-38-3606ffnyuci crampadams-[facility], vomiting [facility] (20 sources)telithromycinDrug AllergyjiMercy Health [facility] Other (20 sources)AdipexPropensity to adverse reactionsGI upset, Rapid heart rateArbor Health Integrity Applications Other (20 sources)VancoPropensity to adverse reactionshivesArbor Health [facility] Applications Other (20 sources)Azithromycin; Translations: [azithromycin]Drug Undisib89-73-2949 Nausea, vomiting, Nausea, vomitingNorwalk Memorial Hospital (20 sources)SulfamethoxazoleDrug Vmaetts15-86-1968Wmoalm, Nausea, stomach crampingNorwalk Memorial Hospital (20 sources)TrimethoprimDrug Dkaksme74-89-7852Bmfiok, Nausea, stomach cramping [facility] (20 sources)Vancomycin; Translations: [vancomycin]Drug Nyqgxsc33-06-0752Xlpf, hives, Rash, hivesNorwalk Memorial Hospital (20 sources)Acetaminophen / traMADolDrug AllergySelect [facility] Other (12 sources)Amoxicillin / ClavulanateDrug AllergystomacPerson [facility] Other (1 source)AzithromycinDrug Osdzhzk75-24-1646Uph [facility] (1 source)PenicillinDrug Gxmqacs27-47-9607Jqw [facility] (2 sources)Sulfamethoxazole / Trimethoprim; Translations: [Bactrim]Drug Allergy 98-54-5506Qbe [facility] (1 source)Sulfonamides (Antibiotic)Drug allergy (disorder)The [facility] (6 sources)AmoxicillinDrug Irunrbv31-46-1965sehscky upsetNorwalk Memorial Hospital (20 sources)cefdinirDrug Yabecqh76-90-2042ZthgyJrcrkynvoNorwalk Memorial Hospital (20 sources)ClavulanateDrug Vpclkwo45-84-0311HG intoleranceNorwalk Memorial Hospital (20 sources)cyclobenzaprineDrug Rppeull44-72-3936thbfdpmYkvkkarkfMercy Health Defiance Hospital (20 sources)PhentermineDrug Xokuwsj26-72-3954Pjgiv heart rateNorwalk Memorial Hospital (17 sources)telithromycinDrug Lkhxvau94-69-1391ayommsgDlmbhxpfdOhioHealth Doctors Hospital (20 sources)traMADolDrug Toedfkk22-04-7621sdbtkmkVilcvyxmfOhioHealth Doctors Hospital (20 sources)BetamethasoneDrug Snfekep65-68-3662dswssxexmxmhksBlcqblldv [facility] (17 sources)PenicillinsDrug Dqhevfp32-73-1602KWFL [facility] Work Phone: Medications Current Medications MedicationDrug Class(es)DatesSig (Normalized)Sig (Original)0.5 ML semaglutide 1 MG/ML Auto-Injector [Wegovy] (9 sources)Start: 85-32-5651Vqfqil 0.5 MG/0.5ML 0.5 mL Subcutaneous for 30 day(s) Dec, Activeinject 0.5 mL by subcutaneous injection every week Wegovy 0.5 MG/0.5ML 0.5 mL Subcutaneous once a week for 30 days Activeinject 0.5 mL by subcutaneous injection every weekWegovy 0.5 MG/0.5ML 0.5 mL Subcutaneous once a week 1 sample Activeinject 0.5 mL by subcutaneous injection every week Wegovy 0.5 MG/0.5ML 0.5 mL Subcutaneous once a week Activeinject 0.5 mL by subcutaneous injection every weekWegovy 0.5 MG/0.5ML 0.5 mL Subcutaneous once a week for 28 days Ybxwvbyjv945220 200 actuat albuterol 0.09 mg/actuat metered dose inhaler (20 sources)beta2-Adrenergic AgonistStart: 02-25-0574cjyg 2 puff(s) by mouth every four hours as neededAlbuterol Sulfate (Ventolin Hfa) 90 mcg/actuation HFA aerosol inhaler Active 2 INH INHALATION November 27, 2023 1:00am FreeTextSig: INHALE 2 PUFFS BY MOUTH EVERY 4 HOURS NEEDED Inhalation; Note:Source Status: Taking; Refills: 1; Provider: Dash Abraham Complies with drug therapyalbuterol HFA 90 mcg/act inhaler every 4 (four) hours. Activetake 2 puff(s) by mouth every four hours as neededVentolin HFA 108 (90 Base) MCG/ACT INHALE 2 PUFFS BY MOUTH EVERY 4 HOURS NEEDED Inhalation Activealbuterol 0.833 mg/ml / ipratropium bromide 0.167 mg/ml inhalation solution (4 sources)Anticholinergic, beta2-Adrenergic AgonistStart: 55-80-7832ifun 1 mL by inhalation four times daily as needed for wheezingIpratropium-Albuterol 0.5 mg-3 mg(2.5 mg base)/3 mL solution for nebulization Active 3 ML INHALATION Four times daily as needed for wheezing March 03, 2025 12:00am Complies with drug therapyStart: 82-96-3767PxjIpz 2.5 mg-0.5 mg/3 mL Soln-Inh 3 mL, Inhalation, QID Wheezing, 30 EA, Refill(s) 0, [facility]/pharmacy#[id number], 167, cm, 01/02/25 13:04:00 EDT, Height/Length Dosing, 75, kg, 01/02/25 13:04:00 EDT, Weight Dosing Start Date: 01/02/25 Status: Ordered Quantity: 30.0 Unit: EA Repeat number: 1 amoxicillin 875 mg / clavulanate 125 mg oral tablet (4 sources)Penicillin-class AntibacterialStart: 02-04-2023 End: 32-74-7590oyft 1 tablet by mouth every twelve hoursAmoxicillin-Pot Clavulanate 875-125 MG 1 tablet Orally every 12 hrs February, Active azithromycin 250 mg oral tablet (20 sources)Macrolide AntimicrobialStart: 46-82-2425tzqypdodcrkp (Zithromax) 250 MG tablet Indications: Bronchitis Take 2 tabs on day 1 and 1 tab on days 2-5 then stop 6 tablet 06/13/2025 ActiveStart: 03-03-2025 End: 71-00-6398Vlwozfysxznm (Zithromax Z-Noel) 250 mg tablet Discontinued 0 PO .COMPLEX 6 March 03, 2025 12:00am June 30, 2025 4:16pm For 250 mg dose pack: take 500 mg today (day 1), then 250 mg for 4 days (days 2-5) POStart: 12-16-2024 End: 42-66-3386Jaauussrsvrm (Zithromax Z-Noel) 250 mg tablet Discontinued 0 PO .COMPLEX 6 December 16, 2024 12:00am January 27, 2025 2:25pm For 250 mg dose pack: take 500 mg today (day 1), then 250 mg for 4 days (days 2-5) POStart: 04-22-2024 End: 43-52-6092roswbubhqioh (Zithromax) 250 MG tablet TAKE 2 TABLETS BY MOUTH TODAY, THEN TAKE 1 TABLET DAILY FOR 4 DAYS DIRECTED 04/22/2024 09/08/2024 DiscontinuedStart: 03-22-2024 End: 95-63-2490Pagukmpiirib (Zithromax Z-Noel) 250 mg tablet Discontinued 0 PO .COMPLEX 6 June 22, 2024 12:00am August 26, 2024 3:34pm For 250 mg dose pack: take 500 mg today (day 1), then 250 mg for 4 days (days 2-5) PO brompheniramine maleate 0.4 mg/ml / dextromethorphan hydrobromide 2 mg/ml / pseudoephedrine hydrochloride 6 mg/ml oral solution (5 sources)alpha-Adrenergic Agonist, Uncompetitive R-hypskl-P-aspartate Receptor Antagonist, Sigma-1 AgonistStart: 18-63-0927eahk 10 mL by mouth every eight hours for ubwxevraorejaokluses-qbndusqcomkhnkr-IG 30-2-10 MG/5ML syrup Indications: Acute cough Take 10 mL by mouth every 8 (eight) hours if needed for congestion or cough 120 mL 06/13/2025 ActiveStart: 60-30-1220vgdw 5 mL by mouth four times dailyBromfed DM oral syrup 5 mL, Oral, QID for cold symptoms, 200 mL, Refill(s) 0, [facility]/pharmacy #[id number], 167, cm, 03/18/25 15:14:00 EDT, Height/Length Dosing, 75, kg, 03/18/25 15:14:00 EDT, Weight Dosing Start Date: 03/18/25 Status: Ordered Quantity: 200.0 Unit: mL Repeat number: 1120 actuat budesonide 0.16 mg/actuat / formoterol fumarate 0.0048 mg/actuat / glycopyrrolate 0.009 mg/actuat metered dose inhaler (8 sources)Corticosteroid, beta2-Adrenergic AgonistStart: 01-11-7451bvep 2 puff(s) by inhalation twice dailyBreztri Aerosphere 160-9-4.8 MCG/ACT 2 puffs Inhalation Twice a day Apr, Active End: 84-32-0929Yngmyyo-Glycopyrrol-Formoterol (Breztri Aerosphere) 160-9-4.8 MCG/ACT aerosol Breztri Aerosphere 09/08/2024 DiscontinuedbusPIRone hydrochloride 5 mg oral tablet (6 sources)Start: 76-94-2601vwmz 1 tablet by mouth twice dailyBuspirone 5 mg tablet Active 5 MG PO Twice daily 60 December 16, 2024 12:00am Complies with drug therapyclobetasol propionate 0.0005 mg/mg topical ointment (4 sources)CorticosteroidStart: 76-27-0334lfszlhsrsc (Temovate) 0.05 % ointment Indications: Eczema, dyshidrotic Apply topically in the morning and before bedtime. Apply to affected area BID for 5 days. 45 g 06/13/2025 Active dicyclomine hydrochloride 10 mg oral capsule (4 sources)AnticholinergicStart: 02-04-2023 End: 61-83-6799yxyg 1 capsule by mouth four times daily as neededDicyclomine HCl 10 MG 1 capsule Orally Four times a day as needed February, Active doxycycline hyclate 100 mg oral tablet (16 sources)Tetracycline-class DrugStart: 64-49-0821bgvy 1 tablet by mouth every twelve hoursDoxycycline Hyclate 100 MG 1 tablet Orally Twice a day for 7 day(s) Apr, ActiveStart: 86-39-6724apsj 1 capsule by mouth every twelve hours Doxycycline Hyclate 100 MG 1 capsule Orally Twice a day for 10 day(s) Oct, ActiveDuoNeb 2.5 mg-0.5 mg/3 mL Soln-Inh (1 source)Start: 77-11-4440SirXuw 2.5 mg-0.5 mg/3 mL Soln-Inh 3 mL, Inhalation, QID Wheezing, 30 EA, Refill(s) 0, [facility]/pharmacy#[id number], 167, cm, 01/02/25 13:04:00 EDT, Height/Length Dosing, 75, kg, 01/02/25 13:04:00 EDT, Weight Dosing Start Date: 01/02/25 Status: Ordered Quantity: 30.0 Unit: EA Repeat number: 1 escitalopram 10 mg oral tablet (4 sources)Serotonin Reuptake InhibitorStart: 97-25-8284nxyj 1 tablet by mouth every twenty-four hoursEscitalopram Oxalate 10 MG 1 tablet Orally Once a day for 30 days Jun, Wkwoki81 actuat fluticasone furoate 0.1 mg/actuat / umeclidinium 0.0625 mg/actuat / vilanterol 0.025 mg/actuat dry powder inhaler (2 sources)Anticholinergic, Corticosteroid, beta2-Adrenergic AgonistStart: 45-78-6050pnqe 1 puff(s) by inhalation once dailyTrelegy Ellipta 100-62.5-25 MCG/INH 1 puff Inhalation Once a day samples May, Activefurosemide 20 mg oral tablet (17 sources)Loop DiureticStart: 50-23-2115eshm 1 tablet by mouth once daily Furosemide (Lasix) 20 mg tablet Active 20 MG PO Daily January 27, 2025 12:00am Complies with drug therapygabapentin 100 mg oral capsule (2 sources)Anti-epileptic AgentStart: 61-96-5391nlda 100 mg by mouth once daily Gabapentin Active 100 MG PO Daily May 31, 2020 12:00amhydroCHLOROthiazide 12.5 mg oral tablet (6 sources)Thiazide DiureticStart: 64-96-0893rxlt 1-2 tablets by mouth once daily in the morninghydroCHLOROthiazide 12.5 MG 1-2 tablet in the morning Orally Once a day for 90 days Sep, Activelinaclotide 0.072 mg oral capsule (20 sources)Guanylate Cyclase-C AgonistStart: 08-26-2024 End: 02-19-3217chjb 1 capsule by mouth once daily as neededLinaclotide (Linzess) 72 mcg capsule Active 72 MCG PO Daily as needed December 16, 2024 1:51pm Compli es with drug therapyStart: 76-97-5617Lraultn 72 MCG 1 capsule at least 30 minutes before the first meal of the day on an empty stomach Orally Once a day for 30 days Samples Jan, Not-Takingliothyronine sodium 0.005 mg oral tablet (6 sources)l-TriiodothyronineStart: 17-52-1377eaiitnerocue (Cytomel) 5 MCG tablet Indications: ESS (euthyroid sick syndrome) , Chronic fatigue Take 1.5 tablet in AM and 1.5 tablet in PM on an empty stomach. TORY; Uberpong or Vanilla Breeze brands only 270 tablet 04/21/2025 Activelisinopril 2.5 mg oral tablet (2 sources)Angiotensin Converting Enzyme InhibitorStart: 79-41-3721olkt 2.5 mg by mouth once dailyLisinopril Active 2.5 MG PO Daily July 30, 2017 12:00am Magnesium (17 sources)take 1 capsule by mouth three times weeklyMAGNESIUM PO Take 1 capsule by mouth 3 (three) times a week ActiveMAGNESIUM PO Take by mouth Active 24 hr metFORMIN hydrochloride 500 mg extended release oral tablet (11 sources)BiguanideStart: 84-80-5304apsp 1 tablet by mouth every twenty-four hoursMetformin 500 mg tablet extended release 24 hr Active MG PO June 30, 2025 12:00am Complies with drug therapyStart: 05-23-2025 End: 69-99-2489tdkj 1 tablet by mouth every twenty-four hours in the morning metFORMIN XR (Glucophage-XR) 500 MG 24 hr tablet Indications: Insulin resistance Take 1 tablet (500mg) by mouth in the morning and 1 tablet (500 mg) before bedtime. Do not crush, chew, or split. 60 tablet 05/23/2025 ActiveStart: 04-07-2025 End: 94-47-4487xttu 1 tablet by mouth every twenty-four hours at mealtime metFORMIN XR (Glucophage-XR) 500 MG 24 hr tablet Indications: Insulin resistance Take 1 tablet (500mg) by mouth in the morning. Take with meals. Do not crush, chew, or split. 30 tablet 04/07/2025 05/07/2025 ActivemethylPREDNISolone 4 mg oral tablet (2 sources)CorticosteroidStart: 87-14-2827Xxcilj 4 MG as directed Orally Jun, ActiveStart: 63-67-0329Eqgyry 4 MG as directed Orally as directed May, Activenystatin 253539 unt/ml oral suspension (5 sources)Polyene AntifungalStart: 16-24-0919riya 1 mL by mouth once daily Nystatin 100,000 unit/mL suspension Active 1 ML PO Daily January 27, 2025 12:00am swish and swallowComplies with drug therapyStart: 01-24-2025 End: 99-79-4081wvxecoqi (Mycostatin) 097173 UNIT/ML suspension Indications: Thrush Take 10 mL (1,000,000 Units) bymouth in the morning and 10 mL (1,000,000 Units) at noon and 10 mL (1,000,000 Units) in the eveningand 10 mL (1,000,000 Units) before bedtime. Do all this for 14 days. 560 mL 01/24/2025 02/07/2025 Ac tiveomeprazole 40 mg delayed release oral capsule (20 sources)Proton Pump InhibitorStart: 05-31-2020 End: 40-67-9988phru 1 capsule by mouth once dailyOmeprazole 40 mg capsule,delayed release(DR/EC) Active 40 MG PO Daily March 02, 2024 3:18pm Complies with drug therapyoseltamivir 75 mg oral capsule (2 sources)Neuraminidase InhibitorStart: 87-99-2029eocr 1 capsule by mouth every twelve hoursTamiflu 75 MG 1 capsule Orally Twice a day for 5 day(s) Oct, ActivePatient Specific Meds (4 sources)Start: 44-84-3541Qnpspas Specific Meds See Instructions Start Date: 12/16/23 Status: Ordered Repeat number: 1Start: 53-88-7857Gxybqmk Specific Meds See Instructions Start Date: 12/16/23 Status: OrderedpredniSONE 20 mg oral tablet (20 sources)Start: 06-13-2025 End: 58-60-1496dett 1 tablet by mouth once dailypredniSONE (Deltasone) 20 MG tablet Indications: Acute cough Take 1 tablet (20 mg) by mouth Daily for 10 days 10 tablet 06/13/2025 06/23/2025 ActiveStart: 03-18-2025 End: 22-12-2349fhpu 3 tablets by mouth once dailypredniSONE 20 mg Tab 60 mg = 3 tab(s), Oral, Daily, X 7 day(s), # 21 tab(s), Refills(s) 0, Pharmacy: [facility]/pharmacy #[id number], 167, cm, 03/18/25 15:14:00 EDT, Height/Length Dosing, 75, kg, 03/18/25 15:14:00 EDT, Weight Dosing Start Date: 03/18/25 Stop Date: 03/25/25 Status: Ordered Quantity: 21.0 Unit: tab(s) Repeat number: 1Start: 08-26-2024 End: 96-55-0753akdk 1 tablet by mouth once dailyPrednisone 10 mg tablet Discontinued 10 MG PO .COMPLEX 15 August 26, 2024 1:00am October 21, 2024 2:41pm 10 mg orally 1 tab twice a day x 5 days , 1 tab once a day x 5 days; see taper instructionsStart: 04-27-2024 End: 15-82-6762Fpqqrfpogg 20 mg tablet Discontinued 20 MG PO As Directed August 26, 2024 3:35pm October 21, 2024 2:41pm BID x 5 days then daily for 5 daysStart: 46-91-1164tktk 1 tablet by mouth twice daily, then take 1 tablet by mouth once dailypredniSONE 20 MG 1 tablet BID for 14 days and then 1 tab daily thereafter Orally as directed Apr, Not-TakingStart: 10-18-2021 predniSONE 20 MG 1 tablet Orally BID X 5 DAYS, QD X 5 DAYS for 10 DAYS Oct, ActiverOPINIRole 1 mg oral tablet (20 sources)Nonergot Dopamine AgonistStart: 11-27-2023 End: 49-03-5439vmsh 1 tablet by mouth once daily as neededRopinirole 1 mg tablet Active 1 MG PO Daily as needed December 16, 2024 1:51pm FreeTextSi tablet Orally Once a day; Note: Source Status: Taking; Provider: Dash Abraham Complies with drug therapyStart: 50-27-7021uyql 1 tablet by mouth every twenty-four hours rOPINIRole HCl 1 MG 1 tablet Orally Once a day Dec, ActiveStart: 15-54-1538ujvd 1 tablet by mouth every twenty-four hoursrOPINIRole HCl 0.5 MG 1 tablet Orally Once a day Dec, ActivetiZANidine 4 mg oral tablet (20 sources)Central alpha-2 Adrenergic AgonistStart: 11-27-2023 End: 66-13-5959ojtt 1 tablet by mouth once daily at bedtime as neededTizanidine (Zanaflex) 4 mg tablet Active 4 MG PO Daily at bedtime as needed December 16, 2024 1:51pmFreeTextSi tablet as needed Orally QHS; Note: Source Status: Taking; Refills: 0; Provider: Edvin Abraham Complies with drug therapyStart: 59-76-1413fqhy 1 tablet by mouth once daily at bedtime as neededZanaflex 4 MG 1 tablet as needed Orally QHS for 90 days February, ActiveZofran ODT 4 mg Tab-Dis (7 sources)Start: 34-35-5625ccsd 1 tablet by mouth every eight hoursZofran ODT 4 mg Tab-Dis 4 mg = 1 tab(s), Oral, q8hr, # 12 tab(s), Refills(s) 0 Start Date: 02/04/23 Status: Ordered Quantity: 12.0 Unit: tab(s) Repeat number: 1Start: 68-00-1412qake 1 tablet by mouth every eight hoursZofran ODT 4 mg Tab-Dis 4 mg = 1 tab(s), Oral, q8hr, # 12 tab(s), Refills(s) 0 Start Date: 02/04/23 Status: Ordered Completed/Discontinued Medications MedicationDrug Class(es)DatesSig (Normalized)Sig (Original)amLODIPine 5 mg oral tablet (20 sources)Dihydropyridine Calcium Channel BlockerStart: 01-29-2022 End: 02-83-3524ntwa 1 tablet by mouth once dailyAmlodipine 5 mg tablet Discontinued 5 MG PO Daily November 27, 2023 1:00am February 03, 2025 11:24am F reeTextSi tablet Orally Once a day; Note: Source Status: Continue; Provider: Dash Burton PStart: 05-00-6189iwib 1 tablet by mouth every twelve hours amLODIPine Besylate 5 MG 1 tablet Orally BID Jan, ActiveStart: 13-16-9876epdl 1 tablet by mouth every twelve hoursamLODIPine Besylate 2.5 MG 1 tablet Orally BID for 90 days Jan, ActiveStart: 72-66-2869awoq 2 tablets by mouth in the morning, then take 1 tablet by mouth in the eveningamLODIPine Besylate 2.5 MG 2 tabs AM and 1 tab PM Orally as directed Jan, Active Start: 05-31-2020 End: 40-97-6958qhbu 1 tablet by mouth once dailyAmlodipine 2.5 mg Tablet Discontinued 2.5 MG PO Daily May 31, 2020 12:00am November 2745:44pm Start: 91-58-8064rzja 1 tablet by mouth every twelve hoursamLODIPine Besylate 2.5 MG 1 tablet Orally BID Sep, Activebetamethasone 0.5 mg/ml topical cream (11 sources)CorticosteroidStart: 02-78-0040Kmynnuhjzixwg Dipropionate 0.05 % 1 application Externally Once a day Dec, Not-Takingbetamethasone 0.5 mg/ml / clotrimazole 10 mg/ml topical cream (18 sources)Azole Antifungal, CorticosteroidStart: 03-02-2024 End: 55-24-5348bpwuywbploqs-betamethasone (Lotrisone) cream Twice daily 03/02/2024 09/08/2024 DiscontinuedStart: 03-02-2024 End: 42-39-1860Yusricfnmpzj-Betamethasone 1-0.05 % cream Discontinued 1 APPLIC TOPICAL Twice daily March 02, 2024 12:00am August 26, 2024 3:34pm24 hr buPROPion hydrochloride 150 mg extended release oral tablet (20 sources)AminoketoneStart: 01-28-2019 End: 61-20-2821yiqe 1 tablet by mouth once dailyBupropion Hcl 150 mg tablet extended release 24 hr Discontinued 150 MG PO Daily May 31, 2020 12:00am November 27, 2023 5:45pmcephalexin 500 mg oral capsule (19 sources)Cephalosporin AntibacterialStart: 09-13-2022 End: 81-00-5084xczf 1 capsule by mouth every six hoursCephalexin 500 mg capsule Discontinued 500 MG PO Q6H 02 05September 13, 2022 1:00am November 27, 2023 5:45pmcitalopram 20 mg oral tablet (20 sources)Serotonin Reuptake InhibitorStart: 87-33-7592kqem 1 tablet by mouth every twenty-four hoursCitalopram Hydrobromide 20 MG 1 tablet Orally Once a day Jun, Not-TakingStart: 07-30-2017 End: 66-63-8282qexn 1 tablet by mouth once dailyCitalopram (Celexa) 10 mg Tablet Discontinued 10 MG PO Daily July 30, 2017 12:00am November 27, 2023 5:45pmDULoxetine 30 mg delayed release oral capsule (10 sources)Serotonin and Norepinephrine Reuptake InhibitorStart: 10-21-2024 End: 86-66-1900fdqs 1 capsule by mouth once dailyDuloxetine (Cymbalta) 30 mg capsule,delayed release(DR/EC) Discontinued 30 MG PO Daily October 21, 2024 1:00am January 27, 2025 2:25pmhomatropine methylbromide 0.3 mg/ml / HYDROcodone bitartrate 1 mg/ml oral solution (4 sources)Opioid Agonist, Cholinergic Muscarinic AgonistStart: 05-06-2022 HYDROcodone Bit-Homatrop MBr 5-1.5 MG/5ML 5 mL as needed Orally every 6 hrs May, Not-TakingStart: 50-94-6815avyl 5 mL by mouth every six hours as neededHycodan Syrup 5mg/1.5 mg 5ml po q 6 hrs prn May, ActiveKetorolac (20 sources)Nonsteroidal Anti-inflammatory Drug, Cyclooxygenase InhibitorStart: 91-38-5634Qjhnhrr per 15 mg Jan, 2 ccStart: 21-16-3852Jdicsae per 15 mg Jan, 60 mgStart: 38-08-0831Ohxeigv per 15 mg Dec, 2 ccStart: 78-32-8631Orwdbrp per 15 mg Oct, 2 mLlubiprostone 0.024 mg oral capsule (20 sources)Chloride Channel ActivatorStart: 11-28-2023 End: 99-38-0547pidc 1 capsule by mouth twice daily as neededLubiprostone 24 mcg capsule Discontinued 24 MCG PO Twice daily as needed November 28, 2023 12:30pm August 26, 2024 3:35pm FreeTextSi capsule with food and water Orally Twice a day as needed; Note: Source Status: Taking; Provider: Brayan Saavedra Start: 11-28-2023 End: 48-16-7683dgin 1 capsule by mouth twice daily as neededLubiprostone 24 mcg capsule Discontinued 24 MCG PO Twice daily as needed November 28, 2023 11:30am August 26, 2024 2:35pm FreeTextSi capsule with food and water Orally Twice a day as needed; Note: Source Status: Taking; Provider: Brayan Saavedra Start: 41-77-3881wxgn 1 capsule by mouth twice daily at mealtime as needed Lubiprostone Active 24 MCG PO Twice daily November 28, 2023 12:30pm FreeTextSi capsule with food and water Orally Twice a day as needed; Note: Source Status: Taking; Provider: Brayan Montiel LStart: 40-49-2809zvkg 1 capsule by mouth twice daily at mealtime as neededLubiprostone Active 24 MCG PO Twice daily November 28, 2023 11:30am FreeTextSi capsule with food and water Orally Twice a day as needed; Note: Source Status: Taking; Provider: Brayan Montiel LStart: 11-27-2023 End: 21-47-7959dzhj 1 capsule by mouth twice daily as neededLubiprostone 24 mcg capsule Discontinued 24 MCG PO Twice daily as needed November 28, 2023 12:30pm August 26, 2024 3:35pm FreeTextSi capsule with food and water Orally Twice a day as needed; Note: Source Status: Taking; Provider: Brayan Saavedra Start: 11-27-2023 End: 82-13-6404euje 1 capsule by mouth twice daily at mealtime as needed Lubiprostone 24 mcg capsule Discontinued MCG PO November 27, 2023 1:00am November 28, 2023 12:33pm FreeTextSi capsule with food and water Orally Twice a day as needed; Note: Source Status: Taking; Provider: Brayan Saavedra Start: 11-27-2023 End: 88-94-2552menw 1 capsule by mouth twice daily at mealtime as needed Lubiprostone 24 mcg capsule Discontinued MCG PO November 27, 2023 12:00am November 28, 2023 11:33am FreeTextSi capsule with food and water Orally Twice a day as needed; Note: Source Status: Taking; Provider: Brayan Saavedra Start: 11-27-2023 End: 13-43-6165wfqh 1 capsule by mouth twice daily at mealtime as needed Lubiprostone Discontinued MCG PO November 27, 2023 1:00am November 28, 2023 12:33pm FreeTextSi capsule with food and water Orally Twice a day as needed; Note: Source Status: Taking; Provider:Brayan Montiel LStart: 11-27-2023 End: 52-28-4035ornm 1 capsule by mouth twice daily at mealtime as needed Lubiprostone Discontinued MCG PO November 27, 2023 12:00am November 28, 2023 11:33am FreeTextSi capsule with food and water Orally Twice a day as needed; Note: Source Status: Taking; Provider: Brayan Montiel LStart: 06-09-2020 take 1 capsule by mouth twice daily at mealtime as neededAmitiza 24 MCG 1 capsule with food and water Orally Twice a day as needed Jun, Active Start: 23-83-2116fcrs 1 capsule by mouth twice daily at mealtime as needed Amitiza 24 MCG 1 capsule with food and water Orally Twice a day as needed Jun, Activemontelukast 10 mg oral tablet (20 sources)Leukotriene Receptor AntagonistStart: 11-27-2023 End: 64-61-8565tzah 1 tablet by mouth once daily at bedtimeMontelukast (Singulair) 10 mg tablet Discontinued 10 MG PO Daily at bedtime November 27, 2023 1:00am January 28, 2024 9:50am FreeTextSi tablet Orally QHS; Note: Source Status: Not-TakingundefinedPRN; Provider: Dash Burton PStart: 2021 take 1 tablet by mouth once daily at bedtimeSingulair 10 MG 1 tablet Orally QHS Dec, Not-Taking/PRNolmesartan medoxomil 40 mg oral tablet (20 sources)Angiotensin 2 Receptor BlockerStart: 09-13-2022 End: 19-05-6863mgwk 1 tablet by mouth once dailyOlmesartan 20 mg Tablet Discontinued 20 MG PO Daily September 13, 2022 1:00am November 27, 2023 5:44pm Start: 05-09-2021 End: 11-59-4902wotk 1 tablet by mouth once dailyOlmesartan 40 mg tablet Discontinued 40 MG PO Daily November 27, 2023 1:00am December 08, 2023 11:58am FreeTextSi tablet Orally Once a day; Note: Source Status: Continue; Provider: Dash Burton Pondansetron 4 mg disintegrating oral tablet (20 sources)Serotonin-3 Receptor AntagonistStart: 11-27-2023 End: 37-03-9507zrsh 1 tablet by mouth every eight hours as needed for nausea and vomitingOndansetron 4 mg tablet,disintegrating Discontinued 4 MG PO Every 8 hours as needed for nausea and vomiting October 14, 2024 11:01am January 27, 2025 2:26pmStart: 40-11-0935qtfu 1 tablet by mouth every eight hours as needed Ondansetron 4 MG 1 tablet on the tongue and allow to dissolve Orally every 8 hours as needed February, Not-Taking/PRN24 hr oxybutynin chloride 10 mg extended release oral tablet (20 sources)Cholinergic Muscarinic AntagonistStart: 11-27-2023 End: 32-56-6963quyl 1 tablet by mouth once dailyOxybutynin Chloride 10 mg tablet extended release 24hr Discontinued 10 MG PO Daily November 27, 2023 1:00am January 28, 2024 9:51am FreeTextSi tablet Orally Once a day; Note: Source Status: Taking; Provider: Dash Burton ( )take 1 tablet by mouth every twenty-four hoursoxyBUTYnin Chloride ER 10 MG 1 tablet Orally Once a day Activephentermine hydrochloride 37.5 mg oral tablet (20 sources)Sympathomimetic Amine AnorecticStart: 01-28-2024 End: 18-95-0426ffxf 1 tablet by mouth once daily 30 minutes after breakfast Phentermine 37.5 mg tablet Discontinued 37.5 MG PO Daily March 02, 2024 3:48pm April 27, 2024 3:35pm must administer 30 minutes before or 1-2 hours after breakfastpregabalin 150 mg oral capsule (1 source)Start: 58-89-9972kmhn 1 capsule by mouth every twelve hoursLyrica 150 MG 1 capsule Orally BID Jan, Not-Takingsemaglutide 7 mg oral tablet (20 sources)Start: 11-27-2023 End: 56-61-7216Lzjcscuksio 7 mg tablet Discontinued 7 MG PO Daily November 27, 2023 1:00am November 28, 2023 12:32pm FreeTextSi tablet at least 30 minutes before first food, beverage or other oral medicine of the day Orally Once a day; Note: [facility] Provider: Dash Burton PStart: 72-39-7261Gjyxnika 3 MG as directed Orally samples Oct, ActiveStart: 54-84-1525Ntfxceap 7 MG 1 tablet at least 30 minutes before first food, beverage or other oral medicine of the day Orally Once a day for 30 days samples Oct, ActiveStart: 81-29-3301Jzhxool (0.25 or 0.5 MG/DOSE) 2 MG/1.5ML 0.25mg Subcutaneous Once a week Please dispense 1 pen for starting dose Dec, Activesertraline 25 mg oral tablet (16 sources)Serotonin Reuptake InhibitorStart: 04-27-2024 End: 80-58-0599rzsu 1 tablet by mouth once dailySertraline (Zoloft) 25 mg tablet Discontinued 25 MG PO Daily April 27, 2024 12:00am August 3:35pm Start: 04-26-2024 End: 58-66-7205zcnqmksjdi (Zoloft) 50 MG tablet Indications: Emotional dysregulation First 4 pills split in half. (8 days). Take 1 pill daily there after. 30 tablet 1 04/26/2024 09/08/2024 Discontinuedspironolactone 25 mg oral tablet (20 sources)Aldosterone AntagonistStart: 02-07-2022 End: 95-38-5211xgxl 1 tablet by mouth once dailySpironolactone 25 mg tablet Discontinued 25 MG PO Daily 90 January 20, 2024 4:55pm November 22, 2024 9:14amtraMADol hydrochloride 50 mg oral tablet (19 sources)Opioid AgonistStart: 09-13-2022 End: 55-59-8878jfnq 1 tablet by mouth every four hours as needed for pain Tramadol 50 mg Tablet Discontinued 50 MG PO Q4H as needed for Pain Scale 1 - 4 20 7 September 13, 2022 1:00am November 27, 2023 5:45pmtraZODone hydrochloride 50 mg oral tablet (20 sources)Serotonin Reuptake InhibitorStart: 11-27-2023 End: 15-49-2493hume 1 tablet by mouth once daily at bedtimeTrazodone 50 mg tablet Discontinued 50 MG PO Daily at bedtime November 27, 2023 1:00am January 28, 2024 9:51am FreeTextSi tablet at bedtime as needed Orally Once a day; Note: Source Status: Not-TakingundefinedPRN; Provider: Dash Burton PStart: 25-33-1231oxzb 1 tablet by mouth every twenty-four hourstraZODone HCl 50 MG 1 tablet at bedtime as needed Orally Once a day Nov, Not-Taking/PRN triamcinolone acetonide 40 mg/ml injectable suspension (20 sources)CorticosteroidStart: 88-52-8534Cvstwag-40 Jan, 1.5 ccStart: 58-94-6080Swrezbt -40 mg Dec, 60 mgStart: 01-44-2877Hcrwvoh -40 mg February, 1.5 mgStart: 22-08-3353TYIIWEU - 10 mg Nov, 1.5 ccStart: 52-62-0304AEOWFDX - 10 mg Jun, 1.5 mL24 hr venlafaxine 37.5 mg extended release oral capsule (20 sources)Serotonin and Norepinephrine Reuptake InhibitorStart: 11-27-2023 End: 33-49-6202zzhs 1 capsule by mouth once daily at mealtimeVenlafaxine 37.5 mg capsule,extended release 24hr Discontinued 37.5 MG PO Daily November 27, 2023 1:00am January 28, 2024 9:51am FreeTextSi capsule with food Orally Once a day; Note: Source Status: Not-TakingundefinedPRN; Provider: Dahs Burton PStart: 80-50-8640idcf 1 capsule by mouth every twenty-four hoursVenlafaxine HCl ER 37.5 MG 1 capsule with food Orally Once a day Jul, Not-Taking/PRN Problems Active Problems Problem ClassificationProblemDateDocumented DateEpisodic/ChronicAbdominal pain (19 sources)Abdominal pain; Translations: [Unspecified abdominal pain]09-13-2022 EpisodicAdjustment disorders (20 sources)Family tension; Translations: [Reaction to severe stress, unspecified]Onset: 11-07-2021 Resolved: 66-68-7568InllzihFqfzzsyhoygyqe/social admission (1 source)Encounter for examination for admission to educational institution EpisodicAnxiety disorders (20 sources)Mixed anxiety and depressive disorder; Translations: [Anxiety disorder, unspecified]Onset: 09-22-2021 Resolved: 13-95-5222KanjruiGugjci (20 sources)Severe persistent asthma; Translations: [Severe persistent asthma, uncomplicated]Onset: 175211-91-7338UnyrzbuTmwntyk dysrhythmias (1 source)Tachycardia, unspecifiedEpisodicChronic obstructive pulmonary disease and bronchiectasis (2 sources)Bronchitis; Translations: [Bronchitis, not specified as acute or chronic]60-56-7271UlltktmlJfxojwhex of lipid metabolism (20 sources)Hyperlipidemia; Translations: [Hyperlipidemia, unspecified]Onset: 15-14-2191XfdiahfXewypylkp of teeth and jaw (16 sources)Periapical abscess without sinus tract; Translations: [Periapical abscess without sinus]EpisodicEsophageal disorders (20 sources)Gastroesophageal reflux disease; Translations: [Gastro-esophageal reflux disease without esophagitis]Onset: 834440-90-6489LerxgecVnvywmuva hypertension (20 sources)Essential hypertension; Translations: [Essential (primary) hypertension]Onset: 09-22-2021 Resolved: 21-95-1097ZqrxceeFuudogqlg hypertension (1 source)Essential hypertensionOnset: 71-94-2249Sivjq and electrolyte disorders (1 source)HypokalemiaEpisodicGastritis and duodenitis (1 source)Gastritis, unspecified, without bleeding; Translations: [GASTRITIS UNS WITHOUT BLEEDING]Onset: 76-29-2518MrereydtJueicfgwdkniz symptoms and ill- defined conditions (17 sources)Urge incontinence of urine; Translations: [Urge incontinence]Onset: 658777-30-0426GttuhsuXgahfobyadifw symptoms and ill-defined conditions (4 sources)Frequency of micturition; Translations: [Dysuria]EpisodicHeadache; including migraine (18 sources)Migraine, unspecified, not intractable, without status migrainosus; Translations: [Migraine]Onset: 416979-18-8634CfzykssRvgqxegr; including migraine (20 sources)Headache; Translations: [Intractable headache]10-66-6368Demneqlj Immunizations and screening for infectious disease (1 source)Contact with and (suspected) exposure to other viral communicable diseasesEpisodicMalaise and fatigue (12 sources)Fatigue; Translations: [Chronic fatigue, unspecified]Onset: 985096-40-0556TnrcsjgOhso disorders (20 sources)Mood swings; Translations: [Unspecified mood [affective] disorder] Onset: 97-57-5110YxxyixaQant disorders (15 sources)Mood swings; Translations: [Emotional lability]EpisodicMycoses (1 source)Candidiasis of mouth; Translations: [Candidal stomatitis]01-24-2025 EpisodicNausea and vomiting (10 sources)Nausea with vomiting, unspecified; Translations: [Nausea]Onset: 27-78-0577NudjplrxNavhiutos of unspecified nature or uncertain behavior (8 sources)Neoplastic disease of uncertain behavior; Translations: [Neoplasm of uncertain behavior, unspecified]09-84-9731XkhlbmhsOymkcozfudzwo gastroenteritis (13 sources)Noninfectious enteritis; Translations: [Noninfective gastroenteritis and colitis, unspecified]Onset: 74-64-0129FbhqxurnLthtacdhphoy breast conditions (20 sources)Fibrocystic change of left breast; Translations: [Diffuse cystic mastopathy of left breast]Onset: 796738-46-6311SfnfbebNyrdalyfkzr chest pain (20 sources)Chest pain; Translations: [Chest pain, unspecified]EpisodicOther aftercare (1 source)Other fdc (current) drug therapy; Translations: [OTH GROUP HOME CURRENT DRUG THERAPY]Onset: 19-54-1121CtyvybyeYfqfh bone disease and musculoskeletal deformities (20 sources)Somatic dysfunction of rib; Translations: [Segmental and somatic dysfunction of rib cage]16-32-9195QvduunroGbvte bone disease and musculoskeletal deformities (20 sources)Somatic dysfunction of lumbar region; Translations: [Segmental and somatic dysfunction of lumbar region]08-24-5285HvndfxapPhvrh bone disease and musculoskeletal deformities (20 sources)Somatic dysfunction of thoracic region; Translations: [Segmental and somatic dysfunction of thoracic region]50-45-5393UrdqelxkOwykz bone disease and musculoskeletal deformities (20 sources)Cervical somatic dysfunction; Translations: [Segmental and somatic dysfunction of cervical region]37-99-0059FyzdsllkYvtjo bone disease and musculoskeletal deformities (20 sources)Somatic dysfunction of sacral region; Translations: [Segmental and somatic dysfunction of sacral region]98-46-8028DwuijtlmOnkmh bone disease and musculoskeletal deformities (11 sources)Segmental and somatic dysfunction of cervical region; Translations: [Nonallopathic lesions, cervical region]Onset: 11-07-2021 Resolved: 45-37-2368DmoofgfiUogvs bone disease and musculoskeletal deformities (12 sources)Segmental and somatic dysfunction of thoracic region; Translations: [Nonallopathic lesions, thoracic region]Onset: 11-07-2021 Resolved: 04-52-8218WfloueecTnyyy bone disease and musculoskeletal deformities (12 sources)Segmental and somatic dysfunction of rib cage; Translations: [Nonallopathic lesions, rib cage]Onset: 11-07-2021 Resolved: 89-52-8451OdthqqwhDksns bone disease and musculoskeletal deformities (12 sources)Segmental and somatic dysfunction of lumbar region; Translations: [Nonallopathic lesions, lumbar region]Onset: 11-07-2021 Resolved: 54-38-2740ZnpukobqHjxcv bone disease and musculoskeletal deformities (11 sources)Segmental and somatic dysfunction of sacral region; Translations: [Nonallopathic lesions, sacral region]Onset: 11-07-2021 Resolved: 19-18-4772WhemqccsMnnbg circulatory disease (1 source)Other specified symptoms and signs involving the circulatory and respiratory systemsEpisodicOther connective tissue disease (20 sources)Polymyalgia; Translations: [Polymyalgia rheumatica]ChronicOther connective tissue disease (2 sources)Polymyalgia rheumaticaOnset: 05-14-2022 Resolved: 12-96-6996NjffodyJuchq connective tissue disease (16 sources)Pain in right heel; Translations: [Pain in right foot]EpisodicOther connective tissue disease (16 sources)Pain in left lower limb; Translations: [Pain in left leg]Episodic Other connective tissue disease (1 source)Pain in right legEpisodicOther connective tissue disease (1 source)Pain in left legEpisodicOther connective tissue disease (1 source)Pain in leg, unspecifiedEpisodicOther connective tissue disease (1 source)Pain in right handEpisodicOther connective tissue disease (14 sources)Trochanteric bursitis; Translations: [Trochanteric bursitis, right hip]52-08-3736YlnuxepuFazom connective tissue disease (14 sources)Trochanteric bursitis, right hip; Translations: [Enthesopathy of hip region]19-64-7833FwaernojUsscb connective tissue disease (19 sources)Trochanteric bursitis of right hip; Translations: [Trochanteric bursitis, right hip]Onset: 118662-11-8798HozfqqkjLxwrl diseases of bladder and urethra (20 sources)Spasm of bladder; Translations: [Other specified disorders of bladder]ChronicOther diseases of bladder and urethra (2 sources)Other specified disorders of bladderOnset: 02-05-2022 Resolved: 89-41-7053QhinsggRxojp ear and sense organ disorders (1 source)Bilateral hearing loss; Translations: [Unspecified hearing loss, bilateral]83-17-1301JrpbnpaZkyiv endocrine disorders (2 sources)Hypoglycemia; Translations: [Hypoglycemia, unspecified]02-24-2025 ChronicOther endocrine disorders (13 sources)Reactive hypoglycemia; Translations: [Other hypoglycemia]Onset: 607762-42-9136UuntxpaPahks endocrine disorders (2 sources)Hypotestosteronism; Translations: [Endocrine disorder, unspecified] 76-50-5388BnitjgcaBzcsu gastrointestinal disorders (20 sources)Irritable bowel syndrome; Translations: [Irritable bowel syndrome without diarrhea]Onset: 132310-44-5591ThedaxcRkcff gastrointestinal disorders (20 sources)Irritable bowel syndrome characterized by constipation; Translations: [Irritable bowel syndrome with constipation]ChronicOther gastrointestinal disorders (4 sources)Irritable bowel syndrome without diarrhea; Translations: [Irritable bowel syndrome]ChronicOther gastrointestinal disorders (20 sources)Constipation; Translations: [Constipation, unspecified]06-02-2020 EpisodicOther gastrointestinal disorders (1 source)Constipation, unspecifiedEpisodicOther hereditary and degenerative nervous system conditions (20 sources)Restless legs; Translations: [Restless legs syndrome]ChronicOther hereditary and degenerative nervous system conditions (2 sources)Restless legs syndromeChronicOther lower respiratory disease (3 sources)Shortness of breath; Translations: [Shortness of breath]Onset: 04-15-2022 Resolved: 66-34-2583EpcmzzjpIsywg lower respiratory disease (4 sources)Rib pain; Translations: [Pleurodynia]EpisodicOther lower respiratory disease (20 sources)Persistent cough; Translations: [Persistent cough]EpisodicOther lower respiratory disease (20 sources)Cough; Translations: [Recurrent cough]EpisodicOther lower respiratory disease (1 source)Other forms of dyspneaEpisodicOther lower respiratory disease (2 sources)Productive cough ; Translations: [Cough with frothy sputum]04-27-2024 EpisodicOther lower respiratory disease (3 sources)Cough; Translations: [Acute cough]98-78-3026ZprzkjzmKzfam nervous system disorders (20 sources)Skin sensation disturbance; Translations: [Paresthesia of skin] EpisodicOther nervous system disorders (1 source)Paresthesia of skinEpisodicOther non-traumatic joint disorders (1 source)Pain in left kneeEpisodicOther non-traumatic joint disorders (11 sources)Hip pain; Translations: [Pain in right hip]07-07-5990BxxldvseMhytp nutritional; endocrine; and metabolic disorders (20 sources)Body mass index 30+ - obesity; Translations: [Body mass index (BMI) 36.0-36.9, adult]Onset: 04-19-2024 Resolved: 259956-33-3183GzyqjczRppzx nutritional; endocrine; and metabolic disorders (20 sources)Obesity; Translations: [Other obesity due to excess calories]Onset: 773436-96-4042SmwaftoYdvwz nutritional; endocrine; and metabolic disorders (20 sources)Obese class I; Translations: [Body mass index (BMI) 33.0-33.9, adult]ChronicOther nutritional; endocrine; and metabolic disorders (1 source)Body mass index (BMI) 34.0-34.9, adultChronicOther nutritional; endocrine; and metabolic disorders (1 source)Body mass index (BMI) 33.0-33.9, adultChronicOther nutritional; endocrine; and metabolic disorders (14 sources)Obesity, unspecified; Translations: [Obesity, unspecified]Chronic Other nutritional; endocrine; and metabolic disorders (6 sources)Body mass index (BMI) 32.0-32.9, adult; Translations: [Body Mass Index 32.0-32.9, adult]ChronicOther nutritional; endocrine; and metabolic disorders (6 sources)Body mass index (BMI) 31.0-31.9, adult; Translations: [Body Mass Index 31.0-31.9, adult]ChronicOther nutritional; endocrine; and metabolic disorders (3 sources)Body mass index (BMI) 30.0-30.9, adultChronicOther nutritional; endocrine; and metabolic disorders (2 sources)Other obesityChronicOther nutritional; endocrine; and metabolic disorders (17 sources)Obesity caused by energy imbalance; Translations: [Other obesity due to excess calories]Onset: 146947-26-8080EtqatdyKgfyx nutritional; endocrine; and metabolic disorders (15 sources)Insulin resistance; Translations: [Insulin resistance]Onset: 103990-16-9011JzfyganGdhfm nutritional; endocrine; and metabolic disorders (16 sources)Excessive thirst; Translations: [Polydipsia]EpisodicOther nutritional; endocrine; and metabolic disorders (12 sources)Overweight in adulthood with body mass index of 25 or more but less than 30; Translations: [Body mass index (BMI) 29.0-29.9, adult]EpisodicOther nutritional; endocrine; and metabolic disorders (1 source)Body mass index (BMI) 29.0-29.9, adultEpisodicOther nutritional; endocrine; and metabolic disorders (2 sources)Weight increased; Translations: [Abnormal weight gain]02-16-2025 EpisodicOther skin disorders (3 sources)Other hypertrophic disorders of the skin; Translations: [Unspecified hypertrophic and atrophic conditions of skin]Onset: 05-23-2022 Resolved: 63-55-6509BzutcksqTgqsr skin disorders (1 source)Dyshidrosis [pompholyx]EpisodicOther skin disorders (6 sources)Multiple skin tags; Translations: [Other hypertrophic disorders of the skin]76-37-3316AnqwfxorZijgi skin disorders (2 sources)Loss of hair; Translations: [Nonscarring hair loss, unspecified] 45-26-3470NgdpmmtdLiauw skin disorders (2 sources)Vesicular eczema; Translations: [Dyshidrosis [pompholyx]]06-13-2025 EpisodicOther upper respiratory disease (16 sources)Seasonal allergy; Translations: [Other seasonal allergic rhinitis] 03-70-1431AejrrswTqqqx upper respiratory disease (19 sources)Allergic rhinitis due to animal hair and dander; Translations: [Allergic rhinitis due to animal (cat) (dog) hair and dander]ChronicOther upper respiratory disease (14 sources)Seasonal allergic rhinitis; Translations: [Other seasonal allergic rhinitis]ChronicOther upper respiratory disease (6 sources)Other seasonal allergic rhinitis; Translations: [Allergic rhinitis, cause unspecified]Onset: 2021 Resolved: 27-15-3499LynthqcQivsg upper respiratory disease (17 sources)Allergic rhinitis due to animal dander; Translations: [Allergic rhinitis due to animal (cat) (dog) hair and dander]Onset: ChronicOther upper respiratory infections (10 sources)Sinusitis; Translations: [Chronic sinusitis, unspecified]12-16-2024 ChronicOther upper respiratory infections (20 sources)Pain in throat; Translations: [Acute pharyngitis, unspecified] 30-54-2283BypfbnlvVgmtzsut codes; unclassified (20 sources)Edema of lower extremity; Translations: [Localized edema]01-27-2025 EpisodicResidual codes; unclassified (16 sources)Edema of hand; Translations: [Localized edema]EpisodicResidual codes; unclassified (15 sources)Difficulty sleeping ; Translations: [Sleep disorder, unspecified] EpisodicResidual codes; unclassified (20 sources)Insomnia; Translations: [Insomnia, unspecified]Onset: 04-19-2024 92-13-2848CpudnxhwWnhpjpht codes; unclassified (3 sources)Localized edema; Translations: [Edema]Onset: 05-23-2022 Resolved: 92-43-1535NdtwuaicKomcsknw codes; unclassified (2 sources)Edema, unspecifiedEpisodicResidual codes; unclassified (17 sources)Past history of procedure; Translations: [Other specified postprocedural states]06-32-0128TdwjcluiZoheiqtr codes; unclassified (8 sources)Family history of aneurysm of artery; Translations: [Family history of ischemic heart disease and other diseases of the circulatory system] 22-95-5045MhctavdpDiuernop codes; unclassified (4 sources)Family history of ischemic heart disease and other diseases of the circulatory system; Translations: [Family history of stroke (cerebrovascular)] 86-53-4678SkjzbpgxGkqlaxkk codes; unclassified (2 sources)Flushing; Translations: [Flushing]41-50-1665KovphowcOicavmor codes; unclassified (2 sources)Sleep disorder; Translations: [Sleep disorder, unspecified]02-16-2025 EpisodicSpondylosis; intervertebral disc disorders; other back problems (20 sources)Neck pain; Translations: [Cervicalgia]67-30-7733CqkkaqdnPruhkhh disorders (20 sources)Hypothyroidism; Translations: [Hypothyroidism, unspecified]Onset: 055511-26-7926NfkdnuvTqjidtc disorders (10 sources)Sick-euthyroid syndrome; Translations: [Sick-euthyroid syndrome] Onset: 685048-79-0842GvbifvezSzfjqunvmwoh (1 source)Unknown / UNK(Unknown)Onset: 16-32-8662Wueduonfuucw (2 sources)Abnormal electrocardiogram [ECG] [EKG] / R94.31(ICD-9)Onset: 67-30-7338Jmebraligjbw (1 source)Other chest pain / R07.89(ICD-9)Onset: 73-36-5282Mhblqaihdykc (1 source)CONTACT W/AND (SUSP) EXPOS COVID-19; Translations: [CONTACT W/AND (SUSP) EXPOS COVID-19]Onset: 47-36-0661Vdtklmiymole (2 sources)LOW BACK PAIN, UNSPECIFIED; Translations: [LOW BACK PAIN, UNSPECIFIED]Onset: 01-82-0912Fsdlhkustnwp (1 source)PERSONAL HISTORY OF COVID-19; Translations: [PERSONAL HISTORY OF COVID-19]Onset: 20-94-7758Ynuegfncfbjx (2 sources)COUGH, UNSPECIFIED; Translations: [COUGH, UNSPECIFIED]Onset: 77-77-4780Wsffa infection (3 sources)COVID-19; Translations: [COVID-19]Onset: 03-21-2022 Past or Other Problems Problem ClassificationProblemDateDocumented DateEpisodic/ChronicDiabetes mellitus without complication (20 sources)Hyperglycemia; Translations: [Hyperglycemia, unspecified]Onset: 33-51-2885WdelbwkbYdcdc of unknown origin (4 sources)Fever, unspecified; Translations: [FEVER UNSPECIFIED]Onset: 31-03-2855AcgtqfraGurnkjjyaxnxn (17 sources)Reactive lymphadenopathy; Translations: [Enlarged lymph nodes, unspecified]Onset: [id number] and fatigue (3 sources)Weakness; Translations: [WEAKNESS]Onset: 47-85-1816JvhkdasaZylhs bone disease and musculoskeletal deformities (1 source)Segmental and somatic dysfunction of pelvic regionOnset: 05-23-2022 Resolved: 26-18-6821ZdxsvhwdRlpuh connective tissue disease (17 sources)Plantar fasciitis of left foot; Translations: [Plantar fascial fibromatosis]Onset: 634458-58-1731QyxupfgcXikzz non-traumatic joint disorders (1 source)Pain in unspecified joint; Translations: [PAIN IN UNSPECIFIED JOINT] Onset: 98-76-2918JekhicgdZveggxzz; pneumothorax; pulmonary collapse (1 source)PleurisyOnset: 2021 Resolved: 18-58-4510WqugulhpKbzihkie codes; unclassified (2 sources)Sleep disorder, unspecifiedOnset: 11-07-2021 Resolved: 63-47-4877AdqsqbyjRsuuxdbc codes; unclassified (1 source)Insomnia, unspecifiedOnset: 02-05-2022 Resolved: 34-46-3324MwwrxpkoMwbdfvhx codes; unclassified (1 source)Other specified postprocedural states; Translations: [OTH SPECIFIED POSTPROCEDURAL STATES]Onset: 67-83-3298UkltadrnZtimszzs codes; unclassified (1 source)Acquired absence of both cervix and uterus; Translations: [ACQUIRED ABSENCE BOTH CERVIX AND UTERUS]Onset: 19-78-0038MaalwaqzVyklvjzb codes; unclassified (1 source)Decreased libido; Translations: [Decreased libido]Onset: 10-28-2024 EpisodicUnclassified (20 sources)Abnormal electrocardiogram [ECG] [EKG]; Translations: [Electrocardiogram abnormal]Onset: 87-00-4091GkzpyzpmWckbofwsnnjd (1 source)R10.32Onset: 15-05-7024Xbwdbqujyfqu (4 sources)Lumbar pain M54.50Onset: 11-07-2021 Resolved: 52-07-1660Unvqbklrinnu (2 sources)History of COVID-19 Z86.16Onset: 04-15-2022 Resolved: 99-97-3327Pzczwpyilcpu (20 sources)Unclassified (3 sources)Persistent cough R05.3Onset: 05-06-2022 Resolved: 40-95-0794Frwnrlptgayo (1 source)Recurrent cough R05.8Unclassified (1 source)LOW BACK PAIN, UNSPECIFIED; Translations: [LOW BACK PAIN, UNSPECIFIED] Onset: 18-72-9928Jqwkvslyxoxe (1 source)COUGH, UNSPECIFIED; Translations: [COUGH, UNSPECIFIED]Onset: 03-19-2022 Results Test NameValueInterpretationReference RangeFaBrad 06-30-2025 Specimen: [id number] Received: 07/01/25 Status: DENISE Alford Num: [id number] Spec Type: Surgical Subm Dr: Micheal Bowling DO Tissues: A Skin-Other than Cyst, tag, debridement or plastic repair (R ABDOMEN) Procedures: SUSAN Gross/Micro L4 Age/ Patient Sex Location Account Attending Physician Brandon Long 49/F [place] [id number] Micheal Bowling DO SPEC NUM: [id number] RECD: 07/01/25 STATUS: DENISE ALFORD NUM: [id number] RAJAT: 06/30/[address]: Micheal Bowling DO ENTERED: 07/01/25 CLAUDIA CLEANING: EDITH TYPE: Surgical DEPT: S ENTERED BY: [id number] RECV BY: [id number] ORDERED: SUSAN Gross/Micro L4 ORDERED: SUSAN Gross/Micro L4 Pathological Diagnosis Right abdomen: Skin with verruca vulgaris Clinical Information Neoplasm of uncertain behavior of skin Gross Description Part A is received in formalin labeled with the patients date of , and Tamika Long abdomen is a jaimes-lemons, friable, villous polypoid like portion of skin, 0.7 x 0.5 x 0.3 cm with feathery tissue fragments, 0.3 x 0.2 x 0.1 cm in aggregate. The polypoid like portion of skin is inked black at the apparent point of attachment, bisected, and entirely submitted in a single cassette. (1, ns, [id number] A) Microscopic Description Microscopic examination was completed. CPT Codes 79633 Specimen: [id number] Received: 07/01/25 Status: DENISE Alford Num: [id number] Spec Type: Surgical Subm Dr: Micheal Bowling DO Tissues: A Skin-Other than Cyst, tag, debridement or plastic repair (R ABDOMEN) Procedures: SUSAN Gross/Katie L4 Patient: Brandon Long [id number] (Continued) Signed (signature on file) Elias Flor JR, MD 07/04/[address] [place] [address] Physician GroupAuditory function testson [id number] normal airUNC Health Blue Ridge MAMMOGRAM SCREENING TOMOSYNTHESIS BILATERALon [id number] MAMMOGRAM SCREENING TOMOSYNTHESIS BILATERALThis is a summary report. The complete report is available in the patient's medical record. If you cannot access the medical record, please contact the sending organization for a detailed fax or copy. Examination: BI MAMMOGRAM SCREENING TOMOSYNTHESIS BILATERAL Clinical History: screening Technique: Screening digital mammography study of both breasts was performed with 2-D and 3-D tomosynthesis imaging. Study was compared to the prior exam dated 01/12/2024. Findings: There is no evidence of interval dominant spiculated mass, grouped microcalcifications, or skin thickening which would be suggestive of malignancy. Axillary lymph nodes including partially visualized lymph nodes are noted bilaterally and appear grossly unremarkable. IMPRESSION: Impression: No specific evidence of malignancy seen in either breast. BIRADS 2 - Benign Findings DENSITY: There are scattered areas of fibroglandular density. FOLLOW-UP: Routine Screening Mammogram ELECTRONICALLY SIGNED BY: Sergio Amador M.D.NormalNot AvailableComment on above: Order Comment: Last mammogram 01-12-24 NOMS. Us or spot compression prnED Clinical Summaryon [id number] Clinical SummaryED Clinical Summary [place] [id number] ED Clinical Summary Person Information Name: BRANDON LONG/New_Tim Age: 49 Years : 1975 Sex: Female Language: Kinyarwanda PCP: MICHEAL BOWLING DO Marital Status: Visit Id: Visit Reason: Respiratory problem; Cough; Shortness of breath; SOB Speciality: Acuity: 3 Enc Type: Emergency Med Service: Emergency Arrival: 03/18/2025 15:07:34 Discharge: 03/18/2025 17:18:36 LOS: 000 02:11 Checkin: 03/18/2025 15:07:34 Checkout: 03/18/2025 17:18:36 Dispo Type: Home (Routine DC) EVENTS: Event Name Event Status Request Date/Time Start Date/Time Complete Date/Time Arrive Complete 03/18/2025 15:07:34 03/18/2025 15:07:34 03/18/2025 15:07:34 Document Home Meds Request 03/18/2025 15:07:34 Triage Complete 03/18/2025 15:07:34 03/18/2025 15:14:15 03/18/2025 15:14:15 EKG Complete 03/18/2025 15:10:32 03/18/2025 15:14:56 Registration Complete 03/18/2025 15:11:41 03/18/2025 15:11:41 03/18/2025 15:11:41 Reg Complete Request 03/18/2025 15:11:41 Reg Bed Request Complete 03/18/2025 15:11:41 03/18/2025 15:11:41 03/18/2025 15:11:41 X-Ray Complete 03/18/2025 15:14:44 03/18/2025 15:15:31 03/18/2025 15:22:59 Wet Read Request 03/18/2025 15:22:59 Bed Assign Complete 03/18/2025 15:47:43 03/18/2025 15:47:43 03/18/2025 15:47:43 Dr Exam Complete 03/18/2025 15:47:43 03/18/2025 15:48:28 03/18/2025 15:48:28 RN Exam Complete 03/18/2025 15:47:43 03/18/2025 16:13:10 03/18/2025 16:13:10 Registration Request 03/18/2025 15:48:28 Dr Exam Complete 03/18/2025 15:50:32 03/18/2025 15:50:32 03/18/2025 15:50:32 Meds Admin Complete 03/18/2025 16:01:42 03/18/2025 16:22:48 RT Tx/ABG Request 03/18/2025 16:01:43 RT Tx/ABG Request 03/18/2025 16:01:43 Discharge Complete 03/18/2025 17:08:56 03/18/2025 17:18:40 03/18/2025 17:18:40 Transfer Complete 03/18/2025 17:18:40 03/18/2025 17:18:40 03/18/2025 17:18:40 ADDRESS: [address] [id number] PHYS DOC NOTES: MEDICAL INFORMATION: Prescriptions Given: New Medications [id number], [address], [place] [id number], [phone] azithromycin (azithromycin 250 mg Tab) 250 Milligram By Mouth As Directed. Refills: 0. brompheniramine/dextromethorphan/PSE (Bromfed DM oral syrup) 5 Milliliter By Mouth 4 times a day asneeded for cold symptoms. Refills: 0. predniSONE (predniSONE 20 mg Tab) 3 Tablets By Mouth every day for 7 Days. Refills: 0. Medications to Continue with No Changes Other Medications albuterol-ipratropium (DuoNeb 2.5 mg-0.5 mg/3 mL Soln-Inh) 3 Milliliter Inhalation 4 times a day asneeded Wheezing. Refills: 0. amlodipine (amLODIPine 5 mg Tab) 1 Tablets [...] Mouth every day. PATIENT EDUCATION INFORMATION: Instructions: Bronchospasm, Adult, Wexb-kc-Fuwh; Asthma, Adult; Asthma Attack Follow up: With: Address: When: MICHEAL BOWLING [address] [place], [place] [id number] Business (1) In 3 days 03/21/2025 Comments: Call Dr for diagnosis based follow up DIAGNOSIS: Asthma exacerbationNormalFisher Oscar Medical CenterED Note-Physicianon [id number] Note-PhysicianED Note-Physician Basic Information Time Seen: Edmond EATON, Hunter Bain 03/18/2025 15:48 Chief Complaint Pt states SOB that started a couple of days ago, but worse last night. Pt does have productive cough as well. Pt has hx of asthma and uses nebulizers and inhalers at home. Pt breathing is regular andnonlabored in triage. History of Present Illness 49-year-old female reports to the emergency department shortness of breath. Reports this has been going on for the last couple days. Reports history of asthma. Believes that she has had having asthmaflare. Reports been using her DuoNeb at home, with mild improvement. Denies any recent steroid use.No chest pain. Denies any antibiotic use as well. Reports has flares, thinks it may be allergies that is causing her asthma now. Denies any chest pain denies any belly pain nausea vomiting fevers or chills. Review of Systems No other aggravating or relieving factors no other associated symptoms no other prior treatments orcomplaints. Family: Reviewed and noncontributory Social: lives at home Review of systems negative unless otherwise specified in the HPI. Physical Exam Vitals & Measurements T: 36.7 ???C(Oral) HR: 81(Monitored) RR: 18 BP: 121/79 SpO2: 98% HT: 167 cm WT: 75 kg BMI: 26.89 General: The patient appears well and in no apparent distress. Patient is resting comfortably in chair. Afebrile Skin: Warm, dry, no pallor noted. Head: Normocephalic, atraumatic Neck: No JVD Eye: PERRLA, EOMI ENT: Moist mucus membranes. Pharynx pink moist no erythema or exudates. Cardiovascular: Regular rate. normal peripheral perfusion Respiratory: No respiratory distress. no accessory muscle use. no obvious audible wheezing. Mild expiratory wheezing on lungs examination of the right lower field. Chest Wall: no deformity Musculoskeletal: normal ROM, no deformity, no swelling GI: No obvious distention Neurological: A&O. moves all extremities equal strength and symmetry Psychiatric: Cooperative and appropriate Medical Decision Making A 49-year-old female reports for department with concerns of asthma exacerbation. Reports mild shortness of breath. Reports been going on the last couple of days. Has been using breathing treatments couple times a day. Exam patient reveals no acute sanjuana distress. Mild wheezing heard on lung examination. She is not tachypneic or tachycardic though. Due to concerns, we did do a chest x-ray as well as EKG. EKG reviewed noted. Chest x-ray showed no acute signs of active cardiopulmonary disease. Discussed likely asthma exacerbation. Patient started on steroids, Z-Noel, Bromfed for symptomatic relief. Discussed return precautions. Follow-up with your primary care provider in 3 to 5 days. If symptoms worsen, do not improve, or new symptoms arise please report back to emergency department for further evaluation. The patient was understanding and agreeable to plan moving forward. Assessment/Plan Asthma exacerbation (J45.901: Unspecified asthma with (acute) exacerbation) Orders: albuterol-ipratropium, 3 mL, Soln-Inh, Inhalation, Once, Stop date 03/18/25 16:01:00 EDT, STAT, Start date 03/18/25 16:01:00 EDT azithromycin, 250 mg, Oral, As Directed, # 6 tab(s), Refills(s) 0, Pharmacy: [id number], 167, cm, 03/18/25 15:14:00 EDT, Height/Length Dosing, 75, kg, 03/18/25 15:14:00 EDT, Weight Dosing brompheniramine/dextromethorphan/PSE, 5 mL, Oral, QID for cold symptoms, 200 mL, Refill(s) 0, [id number], 167, cm, 03/18/25 15:14:00 EDT, Height/Length Dosing, 75, kg, 03/18/25 15:14:00 EDT, Weight Dosing predniSONE, 60 mg = 3 tab(s), Oral, Daily, X 7 day(s), # 21 tab(s), Refills(s) 0, Pharmacy: [id number], 167, cm, 03/18/25 15:14:00 EDT, Height/Length Dosing, 75, kg, 03/18/25 15:14:00 EDT, Weight Dosing Medications Administered Given DuoNeb 2.5 mg-0.5 mg/3 mL Soln-Inh, 3 mL, Inhalation Disposition Plan Patient Discharge Condition stable Discharge Disposition to home Discharge Prescription List Prescriptions azithromycin 250 mg Tab, 250 mg, Oral, As Directed Bromfed DM oral syrup, 5 mL, Oral, QID, PRN predniSONE 20 mg Tab, 60 mg= 3 tab(s), Oral, Daily Follow-up With When Contact Information MICHEAL BOWLING In 3 days 03/21/[address] [place] [address] Business (1) Additional Instructions: Call Dr for diagnosis based follow up Patient Education Bronchospasm, Adult, Mijk-wt-Imdo Asthma, Adult Asthma Attack Attestation Patient seen and evaluated by the physician dietary assistant. Attending physician was present in the emergency department and supervised care. This visit was performed by both the physician and an APC. I performed all aspects of the MDM as documented. This report was transcribed using voice recognition software. Every effort was made to ensure accuracy, however, inadvertently computerized electrophysiology technician mistakes may be present. Appropriate healthcare PPE was used in evaluating this patient. The pat (more content not included)...[facility] HospitalComment on above:Result Comment: Electronically Signed By: Hunter Pruitt PA-C\.br\Date and Time Signed: 03/18/2518:10 EDT\.br\Electronically Co-Signed By: Irvin Smith M.D.\.br\Date and Time Co-Signed: 03/18/25 18:44 EDTED Patient Summaryon 03-18-2025 ED Patient SummaryED Patient Summary [address] [address] Patient Discharge Instructions Person Information Name: BRANDON LONG Age: 49 Years Arrival Date: 03/18/2025 15:07:34 Discharge Diagnosis: Asthma exacerbation Primary Care Physician: MICHEAL BOWLING DO Provider Information Primary Provider: Luis Rachel, Irvin Parikh Advanced Rn Angiography:Edmond EATON, Hunter Bain The exam and treatment you received in the Emergency Department were for an urgent problem and are not intended as complete care. It is important that you follow up with a doctor, nurse practitioner,or physician???s dietary assistant for ongoing care. If your symptoms become worse or you do not improve asexpected and you are unable to reach your usual health care provider, you should return to the Emergency Department. We are available 24 hours a day. BRANDON LONG has been given the following list of patient education materials, prescriptions and follow-up instructions: Follow-up Instructions: With: Address: When: MICHEAL BOWLING [address] [place], [place] [address] Business (1) In 3 days 03/21/2025 Comments: Call Dr for diagnosis based follow up In the event that this physician does not participate in your insurance network, please consult with your insurance company to find a nearby participating provider. Patient Education Materials: Bronchospasm, Adult, Ifqg-dr-Ernk; Asthma, Adult; Asthma Attack A MESSAGE TO ALL PATIENTS REGARDING OPIOIDS PRESCRIPTION OPIOIDS: WHAT YOU NEED TO KNOW Prescription opioids can be used to help relieve iogyoewp-fc-yznbbk pain and are often prescribed following a [...] guidance from the Food and Drug Administration (www.fda.gov/Drugs/ResourcesForYou). ??? Visit www.cdc.gov/drugoverdose to learn about the risks of opioids abuse and overdose. ??? If you be (more content not included)...[facility] HospitalXR Chest 2 Viewson [id number] Chest 2 ViewsExam Date/Time: 03/18/2025 15:22 EDT Reason for Exam: Cough Report IMPRESSION: NO EVIDENCE OF ACTIVE CARDIOPULMONARY DISEASE. EXAM: XR Chest 2 Views DATE: 03/18/2025 3:15 PM CLINICAL HISTORY: Cough. Technologist Comments: Pt states SOB that started a couple of days ago, but worse last night. Pt does have productive cough as well. Pt has hx of asthma and uses nebulizers and inhalers at home. COMPARISON: 01/02/2025. TECHNIQUE: Upright PA and lateral radiographs of the chest were obtained. FINDINGS: There is no significant pulmonary infiltrate, cardiomegaly, pleural effusion, vascular congestion, pneumothorax, or other findings of concern identified. Ordering Provider: Irvin Smith FINAL REPORT Dictated: 03/18/2025 3:25 pm Kirk Dominguez MD Signed (Electronic Signature): 03/18/2025 3:25 pm Signed by: Kirk Dominguez MD Transcribed by: MERLINE Technologist: [facility] Hospital [facility] SouthDHEA SULFATEon [id number] mcg/lBToupzi01-778Tjrfb DiagnosticsComment on above:Performed By: #### 55600, 402, 866, 7573, 899, 24099, 745, 6691, 267, 4021, 859, 5081 #### [facility] [place] [address] [facility], [address] [place] [phone] Aquatic Habitat Biologist: Bharath Sharif MD #### [id number], 39[address] #### [facility] [address] [facility] [place] [address] Aquatic Habitat Biologist: Jitendra Peña M.D.,PhDESTRADIOLon [id number] pg/mLNormalQuest DiagnosticsComment on above:Result Comment: Reference Range Follicular Phase: 19-144 Mid-Cycle: 64-357 Luteal Phase: 56-214 Postmenopausal: < or = 31 Reference range established on post-pubertal patient population. No pre-pubertal reference range established using this assay. For any patients for whom low Estradiol levels are anticipated (e.g. males, pre-pubertal children and hypogonadal/post-menopausal females), the [facility] Estradiol, Ultrasensitive, LCMSMS assay is recommended (order code 34372). Please note: patients being treated with the drug fulvestrant (Faslodex(R)) have demonstrated significant interference in immunoassay methods for estradiol measurement. The cross reactivity could lead to falsely elevated estradiol test results leading to an inappropriate clinical assessment of estrogen status. [employer] order code 59662-Kgyrgowam, Ultrasensitive LC/MS/MS demonstrates negligible cross reactivity with fulvestrant.Performed By: #### 98596, 402, 866, 7573, 899, 88239, 745, 6691, 267, 4021, 859, 5081 #### [facility] [address] [facility], [address] [place] [phone] Aquatic Habitat Biologist: Bharath Sharif MD #### 68993, 64644 #### [facility]/[place] [id number] [facility] [place], [place] Aquatic Habitat Biologist: Jitendra Peña M.D.,PhDGLUCOSE TOLERANCE TEST, [address] [place] [address] [id number] DiagnosticsComment on above:Result Comment: [place] [employer] Diagnostic Criteria for Diabetes Mellitus Glucose Value (mg/dL) Interpretation Fasting 1 Hr 2 Hr Tolerance Tolerance --------- --------- --------- Normal <100 Not Established <140 Impaired Fasting 100-125 Impaired Tolerance 140-199 Diabetes >CF=331* >UV=726* * Must be confirmed by testing on a subsequent day.Performed By: #### 80736, 402, 866, 7573, 899, 08312, 745, 6691, 267, 4021, 859, 5081 #### [facility] [place] [address] [facility], [address] [place] [phone] Aquatic Habitat Biologist: Bharath Sharif MD #### 20610, 78941 #### [facility] [address] [facility] [place], [place] Aquatic Habitat Biologist: Jitendra Peña M.D.,PhDResult Comment: Reference Range Fastin.0-18.4 30 Minutes Post Glucose: 6.0-86.0 60 Minutes Post Glucose: 8.0-112.0 90 Minutes Post Glucose: 5.0-68.0 120 Minutes Post Glucose: 5.0-55.0 150 Minutes Post Glucose: 3.0-46.0 180 Minutes Post Glucose: 3.0-20.0 240 Minutes Post Glucose: <15.0 300 Minutes Post Glucose: <8.0 These values are provided for general guidance only.SPECIMEN 1145 mg/pVJlvt63-37 [facility] DiagnosticsComment on above:Performed By: #### 64614, 402, 866, 7573, 899, 17313, 745, 6691, 267, 4021, 859, 5081 #### [facility] [address], [address] [place], [place] [id number] Aquatic Habitat Biologist: Bharath Sharif MD #### 09313, 75[address] #### [facility]/[address] [place], [place] Aquatic Habitat Biologist: Jitendra Peña M.D.,PhDSPECIMEN 283 mg/dLNormalQuest DiagnosticsComment on above:Performed By: #### 47677, 402, 866, 7573, 899, 78810, 745, 6691, 267, 4021, 859, 5081 #### [facility] [address], [address] [place], [place] [id number] Aquatic Habitat Biologist: Bharath Sharif MD #### 32071, 61245 #### [facility]/[address] [place], [place] Aquatic Habitat Biologist: Jitendra Peña M.D.,PhDSPECIMEN 3116 mg/dLNormalQuest DiagnosticsComment on above:Performed By: #### 34328, 402, 866, 7573, 899, 77206, 745, 6691, 267, 4021, 859, 5081 #### [facility] [address], [address] [place], [place] [id number] Aquatic Habitat Biologist: Bharath Sharif MD #### 65252, 516[address] #### [facility]/[address] [place] Aquatic Habitat Biologist: Jitendra Peña M.D.,PhDSPECIMEN 4112 mg/dLNormalQuest DiagnosticsComment on above:Performed By: #### 00658, 402, 866, 7573, 899, 84432, 745, 6691, 267, 4021, 859, 5081 #### [facility] of [facility] [address] , [address] [place], [place] [address] Aquatic Habitat Biologist: Bharath Sharif MD #### 36512, 49693 #### [facility]/[place] [address] [facility] [address] [place] Aquatic Habitat Biologist: Jitendra Peña M.D.,PhDSPECIMEN 549 mg/dLLowQuest [facility]ostics Comment on above:Performed By: #### 74678, 402, 866, 7573, 899, 93025, 745, 6691, 267, 4021, 859, 5081 #### [facility] [address] [place] [address], [address] [place], [place] [address] Aquatic Habitat Biologist: Bharath Sharif MD #### 87689, 51219 #### [facility]/[address] [place] Aquatic Habitat Biologist: Jitendra Peña M.D.,PhDSPECIMEN 670 mg/dLNormalQuest DiagnosticsComment on above:Performed By: #### 59030, 402, 866, 7573, 899, 75457, 745, 6691, 267, 4021, 859, 5081 #### [facility] of [facility] [address] , [address] [place], [place] [address] Aquatic Habitat Biologist: Bharath Sharif MD #### 61042, 87502 #### [facility]/[address] [place] Aquatic Habitat Biologist: Jitendra Peña M.D.,PhDTIME [id number] DiagnosticsComment on above:Performed By: #### 60401, 402, 866, 7573, 899, 57422, 745, 6691, 267, 4021, 859, 5081 #### [facility] of [facility] [address], [address] [place] [address] Aquatic Habitat Biologist: Bharath Sharif MD #### 73699, 35449 #### [facility]/[address] [place], [place] Aquatic Habitat Biologist: Jitendra Peña M.D.,PhDTIME 1I6JlrwlhKlnbh DiagnosticsComment on above:Performed By: #### 51380, 402, 866, 7573, 899, 89512, 745, 6691, 267, 4021, 859, 5081 #### [facility] of [address], [address] [place], [place] [address] Aquatic Habitat Biologist: Bharath Sharif MD #### 61884, 29777 #### [facility]/[address] [place], [place] Aquatic Habitat Biologist: Jitendra Peña M.D.,PhDTIME [id number] DiagnosticsComment on above:Performed By: #### 24119, 402, 866, 7573, 899, 13553, 745, 6691, 267, 4021, 859, 5081 #### [facility] of [place] [address], [address] [place], [place] [address] Aquatic Habitat Biologist: Bharath Sharif MD #### 55549, 64994 #### [facility]/[address] [place] Aquatic Habitat Biologist: Jitendra Peña M.D.,PhDTIME 6Q7MwjfrtSahsf DiagnosticsComment on above:Performed By: #### 61248, 402, 866, 7573, 899, 03494, 745, 6691, 267, 4021, 859, 5081 #### [facility] of [place] [address] [address] , [address] [place] [address] Aquatic Habitat Biologist: Bharath Sharif MD #### 47771, 78146 #### [facility]/[address] [place], [place] Aquatic Habitat Biologist: Jitendra Peña M.D.,PhDTIME [id number] DiagnosticsComment on above:Performed By: #### 86971, 402, 866, 7573, 899, 96225, 745, 6691, 267, 4021, 859, 5081 #### [facility] of [place] [address] [address] , [address] [place] [address] Aquatic Habitat Biologist: Bharath Sharif MD #### 99823, 68279 #### [facility]/[address] [place], [place] Aquatic Habitat Biologist: Jitendra Peña M.D.,PhDTIME [id number] DiagnosticsComment on above:Performed By: #### 39085, 402, 866, 7573, 899, 91785, 745, 6691, 267, 4021, 859, 5081 #### [facility] [place] [address] [address] , [address] [place] [address] Aquatic Habitat Biologist: Bharath Sharif MD #### [id number], 90042 #### [facility]/[address] [place], [place] Aquatic Habitat Biologist: Jitendra Peña M.D.,PhDINSULIN RESPONSE TO GLUCOSE, 6 SPECIMENSon 25-24-4101HQVALQWF 112.6 uIU/mLNormalQuest DiagnosticsComment on above:Performed By: #### 39506, 402, 866, 7573, 899, 44492, 745, 6691, 267, 4021, 859, 5081 #### [facility] [place] [address] [address] , [address] [place], [place] [address] Aquatic Habitat Biologist: Bharath Sharif MD #### 95507, 04102 #### [facility]/[address] [place], [place] Aquatic Habitat Biologist: Jitendra Peña M.D.,PhDSPECIMEN 275.5 uIU/mLNormalQuest DiagnosticsComment on above:Performed By: #### 52506, 402, 866, 7573, 899, 89511, 745, 6691, 267, 4021, 859, 5081 #### [facility] [place] [address], [address] [place] [address] Aquatic Habitat Biologist: Bharath Sharif MD #### 86354, 41778 #### [facility]/[address] [place], [place] Aquatic Habitat Biologist: Jitendra Peña M.D.,PhDSPECIMEN 3101.1 uIU/mLNormalQuest DiagnosticsComment on above:Performed By: #### 64063, 402, 866, 7573, 899, 26564, 745, 6691, 267, 4021, 859, 5081 #### [facility] [address] , [address] [place] [address] Aquatic Habitat Biologist: Bharath Sharif MD #### 32603, 74132 #### [facility]/[address] [place], [place] Aquatic Habitat Biologist: Jitendra Peña M.D.,PhDSPECIMEN 464.9 uIU/mLNormalQuest DiagnosticsComment on above:Performed By: #### 03293, 402, 866, 7573, 899, 02495, 745, 6691, 267, 4021, 859, 5081 #### [facility] [address] , [address] [place] [address] Aquatic Habitat Biologist: Bharath Sharif MD #### 16374, 89586 #### [facility]/[place] [address] [place] Aquatic Habitat Biologist: Jitendra Peña M.D.,PhDSPECIMEN 58.7 uIU/mLNormalQuest DiagnosticsComment on above:Performed By: #### 03739, 402, 866, 7573, 899, 34886, 745, 6691, 267, 4021, 859, 5081 #### [facility] [address], [address] [place], [place] [address] Aquatic Habitat Biologist: Bharath Sharif MD #### 98284, 38121 #### [facility]/[address] [place] Aquatic Habitat Biologist: Jitendra Peña M.D.,PhDSPECIMEN 69.5 uIU/mLNormalQuest DiagnosticsComment on above:Performed By: #### 64940, 402, 866, 7573, 899, 76412, 745, 6691, 267, 4021, 859, 5081 #### [facility] [address] , [address] [place], [place] [address] Aquatic Habitat Biologist: Bharath Sharif MD #### 31166, 93012 #### [facility]/[address] [place] Aquatic Habitat Biologist: Jitendra Peña M.D.,PhDTIME 2INUT2JirkebVuxfv Diagnostics Comment on above:Performed By: #### 56939, 402, 866, 7573, 899, 93070, 745, 6691, 267, 4021, 859, 5081 #### [facility] [address] , [address] [place], [place] [address] Aquatic Habitat Biologist: Bharath Sharif MD #### 52856, 05483 #### [facility]/[address] [place] Aquatic Habitat Biologist: Jitendra Peña M.D.,PhDTIME 8NSRE2VwfvjsUdmso Diagnostics Comment on above:Performed By: #### 23172, 402, 866, 7573, 899, 84385, 745, 6691, 267, 4021, 859, 5081 #### [facility] of [address], [address] [place] [address] Aquatic Habitat Biologist: Bharath Sharif MD #### 53770, 05943 #### [facility]/[address] [place], [place] Aquatic Habitat Biologist: Jitendra Peña M.D.,PhDTIME 7UTAL7LbysgkXhrzr Diagnostics Comment on above:Performed By: #### 40110, 402, 866, 7573, 899, 76167, 745, 6691, 267, 4021, 859, 5081 #### [facility] of [address], [address] [place] [address] Aquatic Habitat Biologist: Bharath Sharif MD #### 12908, 65661 #### [facility]/[address] [place], [place] Aquatic Habitat Biologist: Jitendra Peña M.D.,PhDTIME 0GKRA8LoxmtdPojpb Diagnostics Comment on above:Performed By: #### 16808, 402, 866, 7573, 899, 04740, 745, 6691, 267, 4021, 859, 5081 #### [facility] of [address], [address] [place] [address] Aquatic Habitat Biologist: Bharath Sharif MD #### 49644, 03128 #### [facility]/[address] [place] Aquatic Habitat Biologist: Jitendra Peña M.D.,PhDTIME 9DCPK1LfisieXgxyh Diagnostics Comment on above:Performed By: #### 24239, 402, 866, 7573, 899, 07968, 745, 6691, 267, 4021, 859, 5081 #### [facility] [place] [address], [address] [place] [address] Aquatic Habitat Biologist: Bharath Sharif MD #### 77092, 48867 #### [facility]/[address] [place] Aquatic Habitat Biologist: Jitendra Peña M.D.,PhDTIME 9YDYK3UtgalaWhods Diagnostics Comment on above:Performed By: #### 12080, 402, 866, 7573, 899, 12643, 745, 6691, 267, 4021, 859, 5081 #### [facility] [address] , [address] [place] [address] Aquatic Habitat Biologist: Bharath Sharif MD #### 18578, 46604 #### [facility]/[address] [place], [place] Aquatic Habitat Biologist: Jitendra Peña M.D.,PhDIRON AND TOTAL IRON BINDING CAPACITYon 03-15-2025% OTMGRDRIEN15 % (calc)Xejqtf59-06Rwysz DiagnosticsComment on above: Order Comment: FASTING:YES FASTING: YESPerformed By: #### 85863, 402, 866, 7573, 899, 34701, 745, 6691, 267, 4021, 859, 5081 #### [facility] [address] , [address] [place], [place] [address] Aquatic Habitat Biologist: Bharath Sharif MD #### 99780, 81065 #### [facility]/[address] [place], [place] Aquatic Habitat Biologist: Jitendra Peña M.D.,PhDIRON BINDING GIWTLSEN612 mcg/dL (calc) Fzprpi123-560Aawsb DiagnosticsComment on above:Order Comment: FASTING:YES FASTING: YESPerformed By: #### 10236, 402, 866, 7573, 899, 96664, 745, 6691, 267, 4021, 859, 5081 #### [facility] [address], [address] [place], [place] [address] Aquatic Habitat Biologist: Bharath Sharif MD #### 52450, 09786 #### [facility]/[place] [address] [facility] [address] [place] Aquatic Habitat Biologist: Jitendra Peña M.D.,PhDIRON, TOTAL69 mcg/vNYojpgx33-971Mvgyl DiagnosticsComment on above:Order Comment: FASTING:YES FASTING: YESPerformed By: #### 22449, 402, 866, 7573, 899, 08228, 745, 6691, 267, 4021, 859, 5081 #### [facility] [place] [address] [facility], [address] [place] [address] Aquatic Habitat Biologist: Bharath Sharif MD #### 87023, 72449 #### [facility] [address] [facility] [address] [place] Aquatic Habitat Biologist: Jitendra ePña M.D.,PhDPROGESTERONEon 33-65-2964ESYBSGEHYWAX <0.5NormalQuest DiagnosticsComment on above:Result Comment: Reference Ranges Female Follicular Phase < 1.0 Luteal Phase 2.6-21.5 Post menopausal < 0.5 1st Trimester 4.1-34.0 2nd Trimester 24.0-76.0 3rd Trimester 52.0-302.0Performed By: #### 65784, 402, 866, 7573, 899, 22881, 745, 6691, 267, 4021, 859, 5081 #### [facility] [address] [facility], [address] [place] [address] Aquatic Habitat Biologist: Bharath Sharif MD #### 69702, 09075 #### [facility]/[place] [address] [facility] [address] [place] Aquatic Habitat Biologist: Jitendra Peña M.D.,PhDT3 REVERSE, LC/MS/MSon 78-11-4377Q1 REVERSE, LC/MS/MS14 ng/dLNormal8-25Quest DiagnosticsComment on above:Result Comment: This test was developed and its analytical performance characteristics have been determined by [employer] [place], [place]. It has not been cleared or approved by the U.S. Food and Drug Administration. This assay has been validated pursuant to the CLIA regulations and is used for clinical purposes.Performed By: #### 91940, 402, 866, 7573, 899, 60215, 745, 6691, 267, 4021, 859, 5081 #### [facility] [address], [address] [place] [address] Aquatic Habitat Biologist: Bharath Sharif MD #### 01187, 43095 #### [facility]/[place] [address] [facility] [place] Aquatic Habitat Biologist: Jitendra Peña M.D.,PhDT3, [facility] 94-20-5277Wgre T3 [Mass/Vol]2.6 pg/mLNormal2.3-4.2Quest DiagnosticsComment on above:Performed By: #### 08010, 402, 866, 7573, 899, 15152, 745, 6691, 267, 4021, 859, 5081 #### [facility] [address], [address] [place] [address] Aquatic Habitat Biologist: Bharath Sharif MD #### 99387, 82307 #### [facility]/[place] [address] [facility] [place] Aquatic Habitat Biologist: Jitendra Peña M.D.,PhDT3, [facility] 28-77-2967L4, TOTAL89 ng/oNSvslgw89-076Jsooy DiagnosticsComment on above:Performed By: #### 84349, 402, 866, 7573, 899, 87279, 745, 6691, 267, 4021, 859, 5081 #### [facility] [address], [address] [place] [address] Aquatic Habitat Biologist: Bharath Sharif MD #### 01021, 42908 #### [facility] [place] Aquatic Habitat Biologist: Jitendra Peña M.D.,PhDT4, [facility] 77-73-5344Snwd T4 [Mass/Vol]1.1 ng/dLNormal0.8-1.8Quest DiagnosticsComment on above:Performed By: #### 23233, 402, 866, 7573, 899, 33563, 745, 6691, 267, 4021, 859, 5081 #### [facility] [address], [address] [place] [address] Aquatic Habitat Biologist: Bharath Sharif MD #### 59700, 67947 #### [facility] [place], [place] Aquatic Habitat Biologist: Jitendra Peña M.D.,PhDTESTOSTERONE, TOTAL, MS 03-15-2025 TESTOSTERONE, TOTAL, MS15 ng/dLNormal2-45Quest DiagnosticsComment on above: Result Comment: For additional information, please refer to http://education.Kynetx.Mapbox/faq/ PeckpEldvdjdztbkuCTQLHNFRL593 (This link is being provided for informational/ educational purposes only.) This test was developed and its analytical performance characteristics have been determined by [employer] [place], [place]. It has not been cleared or approved by the U.S. Food and Drug Administration. This assay has been validated pursuant to the CLIA regulations and is used for clinical purposes.Performed By: #### 59152, 402, 866, 7573, 899, 80601, 745, 6691, 267, 4021, 859, 5081 #### [facility] [address], [address] [place] [address] Aquatic Habitat Biologist: Bharath Sharif MD #### 29842, 55912 #### [facility] [address] [facility] [place] Aquatic Habitat Biologist: Jitendra Peña M.D.,PhDTHYROGLOBULIN ANTIBODIESon 03-15-2025 THYROGLOBULIN ANTIBODIES<1Normal< or = 1Quest DiagnosticsComment on above: Performed By: #### 56969, 402, 866, 7573, 899, 22005, 745, 6691, 267, 4021, 859, 5081 #### [facility] [address], [address] [place] [address] Aquatic Habitat Biologist: Bharath Sharif MD #### 53942, 03407 #### [facility]/[place] [address] [facility] [place] Aquatic Habitat Biologist: Jitendra Peña M.D.,PhDTHYROID PEROXIDASE ANTIBODIESon 74-78-0250WBXHJGF PEROXIDASE ANTIBODIES1 IU/mLNormal<9Quest DiagnosticsComment on above:Performed By: #### 46547, 402, 866, 7573, 899, 34170, 745, 6691, 267, 4021, 859, 5081 #### [facility] [address], [address] [place] [address] Aquatic Habitat Biologist: Bharath Sharif MD #### 04777, 89103 #### [facility]/[place] [address] [facility] [place], [place] Aquatic Habitat Biologist: Jitendra Peña M.D.,PhDTSHon 72-70-1274FNH Qn2.45 m[IU]/L NormalQuest DiagnosticsComment on above:Result Comment: Reference Range > or = 20 Years 0.40-4.50 Ranges First trimester 0.26-2.66 Second trimester 0.55-2.73 Third trimester 0.43-2.91Performed By: #### 31140, 402, 866, 7573, 899, 59524, 745, 6691, 267, 4021, 859, 5081 #### [facility] [address], [address] [place] [address] Aquatic Habitat Biologist: Bharath Sharif MD #### 57936, 04462 #### [facility] [address] [facility] [place] [address] Aquatic Habitat Biologist: Jitendra Peña M.D.,PhDUS THYROIDon 40-78-3698RG THYROIDEXAM: US THYROID HISTORY: Nodules. COMPARISON: None available. TECHNIQUE: Ultrasound examination of the thyroid and adjacent soft tissues was performed. FINDINGS: The right lobe of the thyroid measures 3.8 x 1.4 x 1.4 cm and demonstrates a normal, homogeneous echotexture. The left lobe of the thyroid measures 3.2 x 1.1 x 1.0 cm and demonstrates a normal, homogeneous echotexture. The isthmus measures 0.3 cm. IMPRESSION: 1. Unremarkable thyroid gland. No discrete nodules. Interpreted by: Electronically signed by RADHA ANTONIO II, MD, PHD at 11-Mar-2025 08:27:56 AM [facility] TeleradiologyNormalNot AvailableNo Panel InformationOrdered By: Micheal Bowling on 55-03-8152Boczv Strep (POC)[facility] Clinical Summaryon 27-09-5016RC Clinical SummaryED Clinical Summary [place] [address] ED Clinical Summary Person Information [facility]: [facility]ANDON [facility] Age[facility] 49 Years : 1975 Sex: Female Language: Kinyarwanda PCP: MICHEAL BOWLING DO Marital Status: Visit [...] 01/02/2025 14:28:38 01/02/2025 14:28:38 01/02/2025 14:28:38 ADDRESS: [address] [place] [id number] PHYS DOC NOTES: MEDICAL INFORMATION: Prescriptions Given: New Medications [id number], [address] [place], [place] [id number], [phone] albuterol-ipratropium (DuoNeb 2.5 mg-0.5 mg/3 mL Soln-Inh) 3 Milliliter Inhalation 4 times a day asneeded Wheezing. Refills: 0. Medications to Continue with [...] Follow up: With: Address: When: MICHEAL BOWLING [address] [place] [id number] Business (1) In 3 days DIAGNOSIS: 1:Asthma exacerbationNoSamaritan Hospital Medical CenterED Note-Physicianon 01-39-0215JV Note-PhysicianED Note-Physician Basic Information Time Seen: Monika Bellamy [...] Mild end expiratory wheezing to the posterior rightupper lung leal, no rhonchi, crackles, rales. MUSCULOSKELETAL: Adequately aligned spine. ROM intact spine and extremities. No joint erythema or tenderness. NEUROLOGICAL: CN grossly intact. Strength and sensation symmetric and intact throughout. SKIN: Skin normal color, texture and turgor with no lesions or eruptions. Assessment/Plan 1. Asthma exacerbation (J45.901: Unspecified asthma with (acute) exacerbation) Orders: albuterol-ipratropium, 3 mL, Soln-Inh, NEB, Once, Stop date 01/02/25 13:46:00 EDT, STAT, Start date01/02/25 13:46:00 EDT albuterol-ipratropium, 3 mL, Inhalation, QID Wheezing, 30 EA, Refill(s) 0, [id number], 167,cm, 01/02/25 13:04:00 EDT, Height/Length Dosing, 75, kg, [...] and is to return to the ER withany new or worsening symptoms. Patient given prescription [...] PRN Follow-up With When Contact Information MICHEAL HANDYAlix In [address] [place], [place] [id number] Business (1) Additional Instructions: Patient Education Asthma, Adult Attestation Patient was treated and evaluated by the Physician Production Control Analyst. The attending physician was in the Emergency [...] 1 tab(s), Oral, q8hr (more content not included)...[facility] HospitalComment on above:Result Comment: Electronically Signed By: Monika Bellamy PA-C\.br\Date and Time Signed: 01/02/25 14:29 EDT\.br\Electronically Co-Signed By: Rickie Bergeron DO\.br\Date and Time Co-Signed: 01/02/25 15:26 EDTED Patient Summaryon [id number] Patient SummaryED Patient Summary [address] [address] Patient Discharge Instructions Person Information Name: BRANDON LONG Age: 49 Years Arrival Date: 01/02/2025 12:58:33 Discharge Diagnosis: 1:Asthma exacerbation Primary Care Physician: MICHEAL BOWLING DO Provider Information Primary Provider: Rickie Bergeron DO Advanced Rn Angiography:Monika Bellamy PA-C The exam and treatment you received in the Emergency Department were for an urgent problem and are not intended as complete care. It is important that you follow up with a doctor, nurse practitioner,or physician???s dietary assistant for ongoing care. If your symptoms become worse or you do not improve asexpected and you are unable to reach your usual health care provider, you should return to the Emergency Department. We are available 24 hours a day. BRANDON LONG has been given the following list of patient education materials, prescriptions and follow-up instructions: Follow-up Instructions: With: Address: When: MICHEAL DASH [address] [place] [phone] Business (1) In 3 days In the event that this physician does not participate in your insurance network, please consult with your insurance company to find a nearby participating provider. Patient Education Materials: Asthma, Adult A MESSAGE TO ALL PATIENTS REGARDING OPIOIDS PRESCRIPTION OPIOIDS: WHAT YOU NEED TO KNOW Prescription opioids can be used to help relieve ryfkkotx-zy-hyeyod pain and are often prescribed following a [...] guidance from the Food and Drug Administration (www.fda.gov/Drugs/ResourcesForYou). ??? Visit www.cdc.gov/drugoverdose to learn about the risks of opioids abuse and overdose. ??? If you believe you may be struggling with addiction, tell your health healthcare receptionist and askfor guidance or call [facility]? (more content not included)... [facility]iance HospitalXR Chest Single Viewon [id number] Chest Single ViewExam Date/Time: 01/02/2025 14:19 EDT Reason for Exam: Cough Report IMPRESSION: NO ACUTE CARDIOPULMONARY DISEASE. CLINICAL HISTORY: Cough COMPARISON: NONE. FINDINGS: Osseous structures intact. Cardiopericardial silhouette normal. Pulmonary vasculature normal. Lungs clear. Technical Comments: tamika Cannon in mGy = na DAP = na Ordering Provider: Monika Bellamy FINAL REPORT Dictated: 01/02/2025 2:23 pm Arsen Hadley MD Signed (Electronic Signature): 01/02/2025 2:23 pm Signed by: Arsen Hadley MD Transcribed by: MERLINE Technologist: GERARDORegional Medical CenterCT head/brain wo/w conon 88-41-0477TU head/brain wo/[place] [address] CT Scan Report Signed Patient: Brandon Long MR#: [id number] : 1975 Acct:[id number] Age/Sex: 48 / F ADM Date: 11/25/24 Loc: CT Room: Type: [facility] Attending Dr: Micheal Bowling DO Copies to: [...] Sloan Rodgers M.D.11/25/2024 2:00 PM Dictation Location: [place] [address] Transcribed By: [facility] 11/25/24 1400 Dictated By: Sloan Rodgers MD 11/25/24 1346 Signed By: 11/25/24 1400NoNov[facility] Health Physician KkgeqR0C with Estimated Average Gluon 89-84-7737Wvugteh [Mass/Vol]117 mg/dLMount Sinai Medical Center & [facility] Physician GroupComment on above:Result Comment: PERFORMED BY: [place] [address] PATHOLOGIST LOCATOR SPECIALIST NATASHA ADAN M.D.Performed By: #### A1C WTH eA, CBC, HSCRP, CMP, LIPID, T4F, TSH3, FSH #### [facility] [address] [place] [address] #### LIPA, ESTRADIOL #### [facility] ,HbA1c (Bld) [Mass fraction]5.7 %High4.3-5.6The [facility] Physician [facility] Regional Medical CenterComment on above:Result Comment: Increased risk for diabetes: 5.7 - 6.4 diabetes: >6.4 glycemic control for adults with diabetes: <7.0Performed By: #### A1C WTH eA, CBC, HSCRP, CMP, LIPID, T4F, TSH3, FSH #### [facility] [address] [place] [address] #### LIPA, ESTRADIOL #### [facility] ,Alanine aminotransferase [Enzymatic activity/volume] in Serum or PlasmaOrdered By: Micheal Bowling on 98-57-1173JHS [Catalytic activity/Vol]Alanine aminotransferase [Enzymatic activity/volume] in Serum or Plasma7-52Nor[facility] Memorial HospitalAlbumin [Mass/volume] in Serum or Plasma by Bromocresol green (BCG) dye binding methoOrdered By: Mihceal Bowling on 83-95-1180Xangqom BCG dye [Mass/Vol] Albumin [Mass/volume] in Serum or Plasma by Bromocresol green (BCG) dye binding metho3.5-5.7FMercy Health Defiance HospitalAlkaline phosphatase [Enzymatic activity/volume] in Serum or PlasmaOrdered By: Micheal Bowling on 52-37-6527JCV [Catalytic activity/Vol]Alkaline phosphatase [Enzymatic activity/volume] in Serum or Usfkrz67-497IhuoezsmdNorwalk Memorial HospitalAspartate aminotransferase [Enzymatic activity/volume] in Serum or PlasmaOrdered By: Micheal Bowling on 68-01-6700NVY [Catalytic activity/Vol]Aspartate aminotransferase [Enzymatic activity/volume] in Serum or Zmuvgw06-63JjpkydjriNorwalk Memorial Hospital Basophils Auto (Bld) [#/Vol]Ordered By: Micheal Bowling on 97-89-2800Vmycqvgdp (Bld) [#/Vol]Automated basophil count0.0-0.2FMercy Health Defiance Hospital Basophils/100 WBC Auto (Bld)Ordered By: Micheal Bowling on 27-78-5092Vnebvgwdb/100 WBC (Bld)Automated basophil %.Norwalk Memorial HospitalBilirubin.total [Mass/volume] in Serum or PlasmaOrdered By: Micheal Bowling on 08-46-4774Vlewzdnje [Mass/Vol]Bilirubin.total [Mass/volume] in Serum or Plasma0.3-1.0Nor[facility] Memorial HospitalBlood estimated average glucose determination by estimation from glycated hemoglobinOrdered By: Micheal Bowling on 61-32-1302Dhbtgtw glucose Estimated from glycated hemoglobin (Bld) [Mass/Vol]Glucose mean value [Mass/volume] in Blood Estimated from glycated hemoglobinNorwalk Memorial HospitalC reactive protein [Mass/volume] in Serum or Plasma by High sensitivity methodOrdered By: Micheal Bowling on 59-33-8344GQA High sensitivity method [Mass/Vol]C reactive protein [Mass/volume] in Serum or Plasma by High sensitivity methodHigh0.0-0.9Norwalk Memorial HospitalComment on above: Cardiovascular Risk Classification (AHA/CDC)hsCRP < [...] of this marker for estimation of CVD risk.Calcium [Mass/volume] in Serum or PlasmaOrdered By: Micheal Bowling on 61-31-0038Aypkird [Mass/Vol]Calcium [Mass/volume] in Serum or Plasma 8.6-10.3FMercy Health Defiance HospitalCarbon dioxide, total [Moles/volume] in Serum or PlasmaOrdered By: Micheal Bowling on 11-46-9795IF4 [Moles/Vol]Carbon dioxide, total [Moles/volume] in Serum or Ckqhag62.0-31.0Nor[facility] Memorial HospitalChloride [Moles/volume] in Serum or PlasmaOrdered By: Micheal Bowling on 80-63-9744Qdgaenwi [Moles/Vol]Chloride [Moles/volume] in Serum or Plasma 98-107Norwalk Memorial HospitalCholesterol [Mass/volume] in Serum or PlasmaOrdered By: Micheal Bowling on 64-29-5351Jgocdohrfjm [Mass/Vol]Cholesterol [Mass/volume] in Serum or Rpjzco335-286WstdfuucuNorwalk Memorial HospitalComment on above:Chol less than 200 mg/dl low riskChol 201-239 mg/dl borderline riskChol 240 mg/dl and greater high riskCholesterol in HDL [Mass/volume] in Serum or PlasmaOrdered By: Micheal Bowling on 95-78-1856Hjgcjpfohvo in HDL [Mass/Vol]Serum or plasma high density lipoprotein (HDL) cholesterol gprwosyxebo26-78XziqzwhfvNorwalk Memorial HospitalComment on above:HDL CHOL ATP-III CLASSIFICATION Cardiovascular RiskHDL > or equal to 60 mg/dL LOWHDL < 40 mg/dL HIGHCholesterol in LDL Calc [Mass/Vol]Ordered By: Micheal Bowling on 57-12-7892Oabolvmtlbo in LDL [Mass/Vol]Cholesterol in LDL [Mass/volume] in Serum or Plasma by calculationHigh 0-100Norwalk Memorial HospitalComment on above:LDL ATP III CLASSIFICATIONLDL less than 100 mg/dL OptimalLDL 100-129 mg/dL Near or above ltydjzdOSV334-930 mg/dL Borderline highLDL 160-189 mg/dL HighLDL greater than 189 mg/dL Very highCholesterol in VLDL Calc [Mass/Vol]Ordered By: Micheal Bowling on 47-29-1742Fwomrofcwrv in VLDL [Mass/Vol]Cholesterol in VLDL [Mass/volume] in Serum or Plasma by calculationNorwalk Memorial HospitalComplete Blood Count Auto Diffon 19-58-2089Znswwrpqo (Bld) [#/Vol]0.1 10*3/uLNormal0.0-0.2The [facility] Physician GroupComment on above:Result Comment: PERFORMED BY: [place] [address] PATHOLOGIST LOCATOR SPECIALIST NATASHA ADAN M.D.Performed By: #### A1C WTH eA, CBC, HSCRP, CMP, LIPID, T4F, TSH3, FSH #### [address] #### LIPA, ESTRADIOL #### [facility] ,Basophils/100 WBC (Bld)1.1 %Normal.The [facility] Physician GroupComment on above:Performed By: #### A1C WTH eA, CBC, HSCRP, CMP, LIPID, T4F, TSH3, FSH #### [facility] [address] [place] [address] [place] #### LIPA, ESTRADIOL #### [facility] ,Eosinophils (Bld) [#/Vol]0.3 10*3/uLNormal0.0-0.45The [facility] Comment on above:Performed By: #### A1C WTH eA, CBC, HSCRP, CMP, LIPID, T4F, TSH3, FSH #### [place] [address] [place] #### LIPA, ESTRADIOL #### [facility] ,Eosinophils/100 WBC (Bld)3.1 %Normal.The [facility] Physician GroupComment on above:Performed By: #### A1C WTH eA, CBC, HSCRP, CMP, LIPID, T4F, TSH3, FSH #### [place] [address] [place] #### LIPA, ESTRADIOL #### [facility] ,Erythrocyte distribution width (RBC) [Ratio]12.8 %Hhnesf61.9-15.3The [facility] Physician GroupComment on above:Performed By: #### A1C WTH eA, CBC, HSCRP, CMP, LIPID, T4F, TSH3, FSH #### [address] #### LIPA, ESTRADIOL #### [facility] ,Hematocrit (Bld) [Volume fraction]38.7 %Caslgf63.0-46.4The [facility] Physician GroupComment on above:Performed By: #### A1C WTH eA, CBC, HSCRP, CMP, LIPID, T4F, TSH3, FSH #### [place] [address] [place] #### LIPA, ESTRADIOL #### [facility] ,Hemoglobin (Bld) [Mass/Vol]13.2 g/tZQmelru01.8-15.4The [facility] Physician GroupComment on above:Performed By: #### A1C WTH eA, CBC, HSCRP, CMP, LIPID, T4F, TSH3, FSH #### [place] [address] [place] #### LIPA, ESTRADIOL #### [facility] ,Lymphocytes (Bld) [#/Vol]2.8 10*3/uLNormal1.00-4.8The [facility] Comment on above:Performed By: #### A1C WTH eA, CBC, HSCRP, CMP, LIPID, T4F, TSH3, FSH #### [place] [address] [place] #### LIPA, ESTRADIOL #### [facility] ,Lymphocytes/100 WBC (Bld)30.9 %Normal.The [facility] Physician GroupComment on above:Performed By: #### A1C WTH eA, CBC, HSCRP, CMP, LIPID, T4F, TSH3, FSH #### [address] #### LIPA, ESTRADIOL #### [facility] ,MCH (RBC) [Entitic mass]29.0 urBhzeuz43.7-34.3The [facility] Comment on above:Performed By: #### A1C WTH eA, CBC, HSCRP, CMP, LIPID, T4F, TSH3, FSH #### [address] #### LIPA, ESTRADIOL #### [facility] ,MCV (RBC) [Entitic vol]84.8 kLVwrjbj04-591Wcl [facility] Physician GroupComment on above:Performed By: #### A1C WTH eA, CBC, HSCRP, CMP, LIPID, T4F, TSH3, FSH #### [address] #### LIPA, ESTRADIOL #### [facility] ,Mean Corpuscular HGB Conc34.2 g/fDEynxce96.0-35.0The [facility] Comment on above:Performed By: #### A1C WTH eA, CBC, HSCRP, CMP, LIPID, T4F, TSH3, FSH #### [address] #### LIPA, ESTRADIOL #### [facility] ,Monocytes (Bld) [#/Vol]0.5 10*3/uLNormal0.0-0.8The [facility] Comment on above:Performed By: #### A1C WTH eA, CBC, HSCRP, CMP, LIPID, T4F, TSH3, FSH #### [address] #### LIPA, ESTRADIOL #### [facility] ,Monocytes/100 WBC (Bld)5.8 %Normal.The [facility] Physician GroupComment on above:Performed By: #### A1C WTH eA, CBC, HSCRP, CMP, LIPID, T4F, TSH3, FSH #### [address] #### LIPA, ESTRADIOL #### [facility] ,Neutrophils (Bld) [#/Vol]5.4 10*3/uLNormal1.8-7.7The [facility] Comment on above:Performed By: #### A1C WTH eA, CBC, HSCRP, CMP, LIPID, T4F, TSH3, FSH #### [address] #### LIPA, ESTRADIOL #### [facility] ,Neutrophils/100 WBC (Bld)59.1 %Normal.The [facility] Physician GroupComment on above:Performed By: #### A1C WTH eA, CBC, HSCRP, CMP, LIPID, T4F, TSH3, FSH #### [facility] [address] [place] [address] [place] #### LIPA, ESTRADIOL #### [facility] ,NRBC%0.1 /100{WBC}Normal0-0.5The [facility] Physician GroupComment on above: Performed By: #### A1C WTH eA, CBC, HSCRP, CMP, LIPID, T4F, TSH3, FSH #### [place] [address] [place] #### LIPA, ESTRADIOL #### [facility] ,Platelet mean volume (Bld) [Entitic vol]8.6 fLNormal6.3-10.7The [facility] Physician GroupComment on above:Performed By: #### A1C WTH eA, CBC, HSCRP, CMP, LIPID, T4F, TSH3, FSH #### [place] [address] [place] #### LIPA, ESTRADIOL #### [facility] ,Platelets (Bld) [#/Vol]276 10*3/zAXpvqpp995-415C[facility] Comment on above:Performed By: #### A1C WTH eA, CBC, HSCRP, CMP, LIPID, T4F, TSH3, FSH #### [address] #### LIPA, ESTRADIOL #### [facility] ,RBC (Bld) [#/Vol]4.56 10*6/uLNormal3.60-5.00The [facility] Comment on above:Performed By: #### A1C WTH eA, CBC, HSCRP, CMP, LIPID, T4F, TSH3, FSH #### [address] #### LIPA, ESTRADIOL #### [facility] ,WBC (Bld) [#/Vol]9.2 10*3/uLNormal3.8-11.6The [facility] Physician GroupComment on above:Performed By: #### A1C WTH eA, CBC, HSCRP, CMP, LIPID, T4F, TSH3, FSH #### [address] #### LIPA, ESTRADIOL #### [facility] ,Comprehensive Metabolic Panelon 92-53-3163Zpxornl [Mass/Vol]4.4 g/dLNormal 3.5-5.7The [facility] Physician GroupComment on above:Performed By: #### A1C WTH eA, CBC, HSCRP, CMP, LIPID, T4F, TSH3, FSH #### [facility] [address] [place] [address] [place] #### LIPA, ESTRADIOL #### [facility] ,Albumin/Globulin [Mass ratio]1.8 {ratio}NormalThe [facility] Comment on above:Performed By: #### A1C WTH eA, CBC, HSCRP, CMP, LIPID, T4F, TSH3, FSH #### [facility] [address] [place] [address] [place] #### LIPA, ESTRADIOL #### [facility] ,ALP [Catalytic activity/Vol]59 U/KXboppt06-664Nzx [facility] Comment on above:Performed By: #### A1C WTH eA, CBC, HSCRP, CMP, LIPID, T4F, TSH3, FSH #### [facility] [address] [place] [address] [place] #### LIPA, ESTRADIOL #### [facility] ,ALT [Catalytic activity/Vol]14 U/LNormal7-52The [facility] Comment on above:Performed By: #### A1C WTH eA, CBC, HSCRP, CMP, LIPID, T4F, TSH3, FSH #### [facility] [address] [place] [address] #### LIPA, ESTRADIOL #### [facility] ,Anion gap [Moles/Vol]8.3 mmol/LNormal6.0-15.0The [facility] Comment on above:Performed By: #### A1C WTH eA, CBC, HSCRP, CMP, LIPID, T4F, TSH3, FSH #### [facility] [address] [place] [address] [place] #### LIPA, ESTRADIOL #### [facility] ,AST [Catalytic activity/Vol]15 U/JMqicms68-93Fvx [facility] Comment on above:Performed By: #### A1C WTH eA, CBC, HSCRP, CMP, LIPID, T4F, TSH3, FSH #### [facility] [address] [place] [address] [place] #### LIPA, ESTRADIOL #### [facility] ,Bilirubin [Mass/Vol]0.6 mg/dLNormal0.3-1.0The [facility] Physician GroupComment on above:Performed By: #### A1C WTH eA, CBC, HSCRP, CMP, LIPID, T4F, TSH3, FSH #### [facility] [address] [place] [address] #### LIPA, ESTRADIOL #### [facility] ,Calcium [Mass/Vol]9.3 mg/dLNormal8.6-10.3The [facility] Physician GroupComment on above:Performed By: #### A1C WTH eA, CBC, HSCRP, CMP, LIPID, T4F, TSH3, FSH #### [facility] [address] [place] [address] [place] #### LIPA, ESTRADIOL #### [facility] ,Chloride [Moles/Vol]104 mmol/WVgbpgr13-345Yzf [facility] Physician GroupComment on above:Performed By: #### A1C WTH eA, CBC, HSCRP, CMP, LIPID, T4F, TSH3, FSH #### [address] #### LIPA, ESTRADIOL #### [facility] ,CO2 [Moles/Vol]30.7 mmol/WZloqmo52.0-31.0The [facility] Physician GroupComment on above:Performed By: #### A1C WTH eA, CBC, HSCRP, CMP, LIPID, T4F, TSH3, FSH #### [address] #### LIPA, ESTRADIOL #### [facility] ,Creatinine [Mass/Vol]0.83 mg/dLNormal0.60-1.20The [facility] Comment on above:Performed By: #### A1C WTH eA, CBC, HSCRP, CMP, LIPID, T4F, TSH3, FSH #### [place] [address] [place] #### LIPA, ESTRADIOL #### [facility] ,GFR/1.73 sq M.predicted MDRD (S/P/Bld) [Vol rate/Area]mL/min/{1.73_m2}NormalThe [facility] Physician GroupComment on above:Performed By: #### A1C WTH eA, CBC, HSCRP, CMP, LIPID, T4F, TSH3, FSH #### [place] [address] [place] #### LIPA, ESTRADIOL #### [facility] ,Globulin (S) [Mass/Vol]2.5 g/dLNormalThe [facility] Physician GroupComment on above:Performed By: #### A1C WTH eA, CBC, HSCRP, CMP, LIPID, T4F, TSH3, FSH #### [place] [address] [place] #### LIPA, ESTRADIOL #### [facility] ,Glucose [Mass/Vol]97 mg/jXAexkmv52-677Vju [facility] Physician GroupComment on above:Result Comment: Random Glucose Reference Range is dependent on time and content of last meal. Glucose of more than 200 mg/dL in a nonstressed, ambulatory subject supports the diagnosis of Diabetes Mellitus. ADA recommended reference rangePerformed By: #### A1C WTH eA, CBC, HSCRP, CMP, LIPID, T4F, TSH3, FSH #### [place] [address] [place] #### LIPA, ESTRADIOL #### [facility] ,Potassium [Moles/Vol]4.0 mmol/LNormal3.5-5.1The [facility] Comment on above:Performed By: #### A1C WTH eA, CBC, HSCRP, CMP, LIPID, T4F, TSH3, FSH #### [facility] [address] [place] [address] [place] #### LIPA, ESTRADIOL #### [facility] ,Protein [Mass/Vol]6.9 g/dLNormal6.4-8.9The [facility] Physician GroupComment on above:Performed By: #### A1C WTH eA, CBC, HSCRP, CMP, LIPID, T4F, TSH3, FSH #### [place] [address] [place] #### LIPA, ESTRADIOL #### [facility] ,Sodium [Moles/Vol]139 mmol/DLxskkx946-141Cwa [facility] Physician GroupComment on above:Performed By: #### A1C WTH eA, CBC, HSCRP, CMP, LIPID, T4F, TSH3, FSH #### [facility] [address] #### LIPA, ESTRADIOL #### [facility] ,Urea nitrogen [Mass/Vol]10 mg/dLNormal7-25The [facility] Physician GroupComment on above:Performed By: #### A1C WTH eA, CBC, HSCRP, CMP, LIPID, T4F, TSH3, FSH #### [facility] [address] [place] [address] [place] #### LIPA, ESTRADIOL #### [facility] ,Creatinine [Mass/volume] in Serum or PlasmaOrdered By: Micheal Bowling on 10-28-2024 Creatinine [Mass/Vol]Creatinine [Mass/volume] in Serum or Plasma0.60-1.20 [facility] HospitalEosinophils Auto (Bld) [#/Vol]Ordered By: Micheal Bowling on 99-74-6823Wzhvrhdjoki (Bld) [#/Vol]Automated eosinophil count0.0-0.45 [facility] HospitalEosinophils/100 WBC Auto (Bld)Ordered By: Micheal Bowling on 74-47-5710Anlruubrpwp/100 WBC (Bld)Automated eosinophil %.[facility] HospitalErythrocyte distribution width Auto (RBC) [Ratio]Ordered By: Micheal Bowling on 54-19-9507Xrbrkwgxzwy distribution width (RBC) [Ratio] Erythrocyte distribution width [Ratio] by Automated count11.9-15.3FMercy Health Defiance HospitalEstradiolon 02-78-6112Dlutokilm09.6 pg/mLNormal.The [facility] Physician GroupComment on above:Result Comment: Adult Female Range Follicular phase 12.5 - 166.0 Ovulation phase 85.8 - 498.0 Luteal phase 43.8 - 211.0 Postmenopausal <6.0 - 54.7 1st trimester 215.0 - >4300.0 Kathi ECLIA methodology Performed at: [facility] [address] [id number] [address] Specialist: Damir Young PhD, Phone: [phone] PERFORMED BY: [facility] [address] [place] [address] PATHOLOGIST LOCATOR SPECIALIST NATASHA ADAN M.D.Performed By: #### A1C WTH eA, CBC, HSCRP, CMP, LIPID, T4F, TSH3, FSH ####[address]#### LIPA, ESTRADIOL ####[facility] , Follicle Stimulating Hormoneon 00-71-8248Fxkyjuel Stimulating Osnijhk31.9 m[iU]/mLNormalHolmes Regional Medical Center Physician GroupComment on above:Result Comment: FEMALE NORMALS (PREMENOPAUSE) MID-FOLLICULAR PHASE: 3.9-8.8 mIU/mL MID-CYCLE PEAK: 4.5-22.5 mIU/mL MID-LUTEAL PHASE: 1.8-5.1 mIU/mL FEMALE NORMALS (POSTMENOPAUSE): 16.7-113.6 mIU/mL MALE NORMALS: 1.3-19.3 mIU/mL PERFORMED BY: [facility] [address] [place] [address] PATHOLOGIST LOCATOR SPECIALIST NATASHA ADAN M.D.Performed By: #### A1C WTH eA, CBC, HSCRP, CMP, LIPID, T4F, TSH3, FSH #### [address] #### LIPA, ESTRADIOL #### [facility] ,Follitropin [Units/volume] in Serum or PlasmaOrdered By: Micheal Bowling on 26-32-5319Kumaonnhokb QnFollitropin [Units/volume] in Serum or PlasmaNorwalk Memorial HospitalComment on above:FEMALE NORMALS (PREMENOPAUSE) MID- FOLLICULAR PHASE: 3.9-8.8 mIU/mL MID-CYCLE PEAK: 4.5-22.5 mIU/mL MID-LUTEAL PHASE: 1.8-5.1 mIU/mLFEMALE NORMALS (POSTMENOPAUSE): 16.7-113.6 mIU/mLMALE NORMALS: 1.3-19.3 mIU/mLFree T4 (Free Thyroxine)on 95-70-6071Wdsp T4 [Mass/Vol] 0.78 ng/dLNormal0.61-1.12The [facility] Physician GroupComment on above:Performed By: #### A1C WTH eA, CBC, HSCRP, CMP, LIPID, T4F, TSH3, FSH #### [facility] [address] #### LIPA, ESTRADIOL #### [facility] ,Globulin Calc (S) [Mass/Vol]Ordered By: Micheal Bowling on 21-55-1973Irdrvzxu (S) [Mass/Vol]Serum globulin measurement by calculation (mass/volume)[facility] HospitalGlucose [Mass/volume] in Serum or PlasmaOrdered By: Micheal Bowling on 77-78-6779Czrnngh [Mass/Vol]Glucose [Mass/volume] in Serum or Plasma 70-100[facility] HospitalComment on above:ADA recommended reference rangeRandom Glucose Reference Range is dependent on time and content of last meal. Glucose of more than 200 mg/dL in a nonstressed, ambulatory subject supports the diagnosisof Diabetes Mellitus.Hematocrit Auto (Bld) [Volume fraction]Ordered By: Micheal Bowling on 37-47-1177Kjuwbdlycs (Bld) [Volume fraction] Hematocrit [Volume Fraction] of Blood by Automated count34.0-46.4FMercy Health Defiance HospitalHemoglobin A1c/Hemoglobin.total in BloodOrdered By: Micheal Bowling on 86-28-4375TqO5t (Bld) [Mass fraction]Hemoglobin A1c percentageHigh 4.3-5.6FMercy Health Defiance HospitalComment on above:Increased risk for diabetes: 5.7 - 6.4diabetes: >6.4glycemic control for adults with diabetes: &l t;7.0Hemoglobin [Mass/volume] in BloodOrdered By: Micheal Bowling on 10-28-2024 Hemoglobin (Bld) [Mass/Vol]Hemoglobin [Mass/volume] in Blood11.8-15.4FMercy Health Defiance HospitalHigh Sensitive CRPon 68-01-3492Nwgd Sensitive CRP17.2 mg/LHigh0.0-0.9The [facility] Physician GroupComment on above:Result Comment: Cardiovascular Risk Classification (AHA/CDC) hsCRP < 1.0 mg/l [...] for estimation of CVD risk. PERFORMED BY: [place] [address] PATHOLOGIST LOCATOR SPECIALIST NATASHA ADAN M.D.Performed By: #### A1C WTH eA, CBC, HSCRP, CMP, LIPID, T4F, TSH3, FSH #### [facility] [address] [place] [address] #### LIPA, ESTRADIOL #### [facility] ,Leukocytes [#/volume] corrected for nucleated erythrocytes in Blood by Automated counOrdered By: Micheal Bowling on 55-21-8380EVL corrected for nucl RBC Auto (Bld) [#/Vol]Leukocytes [#/volume] corrected for nucleated erythrocytes in Blood by Automated coun3.8-11.6FMercy Health Defiance HospitalLipid Panelon 29-67-7228Csesulfwcvt [Mass/Vol]181 mg/bGMtmijq195-418Fod [facility] Physician GroupComment on above:Result Comment: Chol less than 200 mg/dl low risk Chol 201-239 mg/dl borderline risk Chol 240 mg/dl and greater high riskPerformed By: #### A1C WTH eA, CBC, HSCRP, CMP, LIPID, T4F, TSH3, FSH #### [facility] [address] [place] [address] [place] #### LIPA, ESTRADIOL #### [facility] ,Cholesterol in HDL [Mass/Vol]40 mg/gGNbeqtu35-27Ofk [facility] Comment on above:Result Comment: HDL CHOL ATP-III CLASSIFICATION Cardiovascular Risk HDL > or equal to 60 mg/dL LOW HDL < 40 mg/dL HIGHPerformed By: #### A1C WTH eA, CBC, HSCRP, CMP, LIPID, T4F, TSH3, FSH #### [place] [address] [place] #### LIPA, ESTRADIOL #### [facility] ,Cholesterol.total/Cholesterol in HDL [Mass ratio]4.5 {ratio}Normal<5.0The [facility] Physician GroupComment on above:Performed By: #### A1C WTH eA, CBC, HSCRP, CMP, LIPID, T4F, TSH3, FSH #### [place] [address] [place] #### LIPA, ESTRADIOL #### [facility] ,LDL Cholesterol,Xyfakyixxq218 mg/dLHigh0-100The [facility] Comment on above:Result Comment: LDL ATP III CLASSIFICATION LDL less than 100 mg/dL Optimal LDL 100-129 mg/dL Near or above optimal LDL 130-159 mg/dL Borderline high LDL 160-189 mg/dL High LDL greater than 189 mg/dL Very highPerformed By: #### A1C WTH eA, CBC, HSCRP, CMP, LIPID, T4F, TSH3, FSH #### [place] [address] [place] #### LIPA, ESTRADIOL #### [facility] ,Triglyceride w/Mofjoy081 mg/dLNormal0-149The [facility] Physician GroupComment on above:Result Comment: TRIG ATP III CLASSIFICATION TRIG less than 150 mg/dL Normal TRIG 150-199 mg/dL Borderline high TRIG 200-500 mg/dL High TRIG greater than 500 mg/dL Very high Standard traceable to the Center for Disease Conrtrol and Prevention (CDC) test method.Performed By: #### A1C WTH eA, CBC, HSCRP, CMP, LIPID, T4F, TSH3, FSH #### [place] [address] [place] #### LIPA, ESTRADIOL #### [facility] ,VLDL BVAHROPLJFR57 mg/dLNormalThe [place] Physician GroupComment on above: Performed By: #### A1C WTH eA, CBC, HSCRP, CMP, LIPID, T4F, TSH3, FSH #### [facility] [address] [place] [address] [place] #### LIPA, ESTRADIOL #### [facility] ,Lipoprotein (a)on 64-77-9462Ostklpvtwfi a [Mass/Vol]135.5 mg/dLHigh<75.0The [facility] Physician GroupComment on above:Result Comment: Note: Values greater than or equal to 75.0 nmol/L may indicate an independent risk factor for CHD, but must be evaluated with caution when applied to non- populations due to the influence of genetic factors on Lp(a) across ethnicities. Performed at: [facility] [id number] [address] Specialist: Damir Young PhD, Phone: [phone] By: #### A1C WTH eA, CBC, HSCRP, CMP, LIPID, T4F, TSH3, FSH ####[facility] [place] [address] [place]#### LIPA, ESTRADIOL ####[facility] ,Lymphocytes Auto (Bld) [#/Vol]Ordered By: Micheal Bowling on 10-28-2024 Lymphocytes (Bld) [#/Vol]Lymphocytes [#/volume] in Blood by Automated count 1.00-4.8[facility] HospitalLymphocytes/100 WBC Auto (Bld)Ordered By: Micheal Bowling on 82-59-4582Wiigdwikjvv/100 WBC (Bld)Lymphocytes/100 leukocytes in Blood by Automated count.[facility] Auto (RBC) [Entitic mass]Ordered By: Micheal Bowling on 54-88-0907NFC (RBC) [Entitic mass]MCH [Entitic mass] by Automated count24.7-34.3FMarietta Memorial Hospital Auto (RBC) [Mass/Vol]Ordered By: Micheal Bowling on 84-19-4090GYWC (RBC) [Mass/Vol] MCHC [Mass/volume] by Automated count32.0-35.0[facility] MCV Auto (RBC) [Entitic vol]Ordered By: Micheal Bowling on 64-86-0720YKO (RBC) [Entitic vol]MCV [Entitic volume] by Automated -802VgfmtcpybNorwalk Memorial HospitalMonocytes Auto (Bld) [#/Vol]Ordered By: Micheal Bowling on 10-28-2024 Monocytes (Bld) [#/Vol]Automated blood monocyte count0.0-0.8[facility] HospitalMonocytes/100 WBC Auto (Bld)Ordered By: Micheal Bowling on 10-28-2024 Monocytes/100 WBC (Bld)Automated monocyte %.[facility] Neutrophils Auto (Bld) [#/Vol]Ordered By: Micheal Bowling on 32-08-7733Ospwnwbcgab (Bld) [#/Vol]Neutrophils [#/volume] in Blood by Automated count1.8-7.7FMercy Health Defiance HospitalNeutrophils/100 WBC Auto (Bld)Ordered By: Micheal Bowling on 34-36-7266Ghbzmzfnoke/100 WBC (Bld)Automated neutrophil %.[facility] HospitalNo Panel InformationOrdered By: Micheal Bowling on 67-79-6043Hkaixabzj GFR (CKD-EPI)> 60.0 mL/MinNorwalk Memorial HospitalPharmacy Creatinine Clearance (ChemN/AFMercy Health Defiance HospitalNucleated erythrocytes [Presence] in Blood by Automated countOrdered By: Micheal Bowling on 10-28-2024 Nucleated RBC Auto Ql (Bld)Nucleated erythrocytes [Presence] in Blood by Automated count0-0.5FMercy Health Defiance HospitalPlatelet mean volume Auto (Bld) [Entitic vol]Ordered By: Micehal Bowling on 41-17-2978Xaguaasb mean volume (Bld) [Entitic vol]Platelet mean volume [Entitic volume] in Blood by Automated count6.3-10.7FMercy Health Defiance HospitalPlatelets Auto (Bld) [#/Vol] Ordered By: Micheal Bowling on 37-00-5994Sfealfmrk (Bld) [#/Vol]Platelets [#/volume] in Blood by Automated jiyhg159-498TynotuxdfNorwalk Memorial HospitalPotassium [Moles/volume] in Serum or PlasmaOrdered By: Micheal Bowling on 16-25-9858Rimdoqgtg [Moles/Vol]Potassium [Moles/volume] in Serum or Plasma3.5-5.1FMercy Health Defiance HospitalProtein [Mass/volume] in Serum or PlasmaOrdered By: Micheal Bowling on 36-50-5938Lntiyvo [Mass/Vol]Protein [Mass/volume] in Serum or Plasma6.4-8.9 [facility] HospitalRBC Auto (Bld) [#/Vol]Ordered By: Micheal Bowling on 81-03-0795TCX (Bld) [#/Vol]Erythrocytes [#/volume] in Blood by Automated count 3.60-5.00Marion Hospitalerum or plasma albumin/globulin mass ratioOrdered By: Micheal Bowling on 94-72-8764Wyqnyxm/Globulin [Mass ratio]Serum or plasma albumin/globulin mass ratioMarion Hospitalerum or plasma anion gap determinationOrdered By: Micheal Bowling on 04-62-3677Qlcpf gap [Moles/Vol]Serum or plasma anion gap determination6.0-15.0Marion Hospitalerum or plasma estradiol (E2) measurement (mass/volume)Ordered By: Micheal Bowling on 47-20-5601G1 [Mass/Vol]Serum or plasma estradiol (E2) measurement (mass/volume).[facility] HospitalComment on above: Adult Female Range Follicular phase 12.5 - 166.0 Ovulation phase 85.8 - 498.0 Luteal phase 43.8 - 211.0 Postmenopausal <6.0 - 54.7 1st trimester 215.0 - >4300.0Roche ECLIA methodologyPerformed at: [facility] - [facility] [address] [id number] Director: Damir Young PhD, Phone: [phone] or plasma lipoprotein a measurement (moles/volume)Ordered By: Micheal Bowling on 83-42-0810Hkdneihigqc a [Moles/Vol]Serum or plasma lipoprotein a measurement (moles/volume)High<75.0[facility] HospitalComment on above:Note: Values greater than or equal to 75.0 nmol/L may indicate an independent risk factor for CHD, but must be evaluated with caution when applied to non- populations due to the influence ofgenetic factors on Lp(a) across ethnicities.Performed at: [address] [id number] Director: Damir Young PhD, Phone: [phone] or plasma total cholesterol/high density lipoprotein (HDL) cholesterol mass ratOrdered By: Micheal Bowling on 17-87-7862Iomwbicsxlu.total/Cholesterol in HDL [Mass ratio]Serum or plasma total cholesterol/high density lipoprotein (HDL) cholesterol mass rat <5.0[facility] [Moles/volume] in Serum or Plasma Ordered By: Micheal Bowling on [id number] [Moles/Vol]Sodium [Moles/volume] in Serum or Ojrodz175-586BhfenhbuhNorwalk Memorial HospitalThyroid Stimulating Hormoneon 34-23-3531KFS Qn3.29 m[IU]/LNormal0.45-5.33[facility] Physician GroupComment on above:Performed By: #### A1C WTH eA, CBC, HSCRP, CMP, LIPID, T4F, TSH3, FSH #### [address] #### LIPA, ESTRADIOL #### [facility] ,Thyrotropin [Units/volume] in Serum or PlasmaOrdered By: Micheal Bowling on [id number] QnThyrotropin [Units/volume] in Serum or Plasma0.45-5.33[facility] HospitalThyroxine (T4) free [Mass/volume] in Serum or Plasma Ordered By: Micheal Bowling on 47-21-4537Bcwy T4 [Mass/Vol]Thyroxine (T4) free [Mass/volume] in Serum or Plasma0.61-1.12[facility] Triglyceride [Mass/volume] in Serum or PlasmaOrdered By: Micheal Bowling on 44-23-2014Jfupletxidrz [Mass/Vol]Triglyceride [Mass/volume] in Serum or Plasma 0-149[facility] HospitalComment on above:TRIG ATP III CLASSIFICATIONTRIG less than 150 mg/dL NormalTRIG 150-199 mg/dL Borderline highTRIG 200-500 mg/dL High TRIG greater than 500 mg/dL Very highStandard traceable to the Center for Disease Conrtrol and Prevention (CDC) test method. Urea nitrogen [Mass/volume] in Serum or PlasmaOrdered By: Micheal Bowling on 36-30-5584Ccqc nitrogen [Mass/Vol]Urea nitrogen [Mass/volume] in Serum or Plasma 7-25[facility] HospitalWBC Auto (Bld) [#/Vol]Ordered By: Micheal Bowling on 58-66-5219ZUO (Bld) [#/Vol]Leukocytes [#/volume] in Blood by Automated count3.8-11.6FMercy Health Defiance HospitalLaboratory - Chemistry and Chemistry - challengeon [id number] Ql (U)NegativeNorwalk Memorial HospitalGlucose (U) [Mass/Vol]NegativeNorwalk Memorial Hospital Ketones Ql (U)[facility] HospitalpH (U)6.0 [pH][facility] Hospitalpecific gravity (U) [Rel density]1.015[facility] HospitalUrobilinogen (U) [Mass/Vol]0.2 mg/dLNorwalk Memorial HospitalLaboratory - Urinalysison 60-71-4057Vbnetgpco esterase Test strip Ql (U) NegativeNorwalk Memorial HospitalNitrite Ql (U)NegativeNorwalk Memorial HospitalProtein Ql (U)NegativeNorwalk Memorial HospitalNo Panel Informationon 38-96-8479Wvmra Occult BloodNegativeNorwalk Memorial HospitalLaboratory - Microbiology and Antimicrobial susceptibilityon 31-64-6726YSQI-CoV-2 (COVID-19) RNA KIRTI+probe Ql (Unsp spec)NegativeVA HOSPITAL HealthcareNo Panel Informationon 48-78-9908JHA ANegativeNOMS HealthcareFLU B NegativeNOPA HealthcareInterpretation and review of laboratory resultsNormalNOHCA Midwest Division HealthcareS. pyogenes DNA KIRTI+probe Nom (Unsp spec)on 07-26-2024 RESULTNegativeNOWestern Missouri Mental Health CenterInfluenza virus B Ag [Presence] in Upper respiratory specimen by Rapid immunoassayon 55-24-5959QNJME Ag IA.rapid Ql (Nph) Influenza virus B Ag [Presence] in Upper respiratory specimen by Rapid immunoassayNorwalk Memorial HospitalNo Panel InformationOrdered By: Micheal Bowling on 07-89-2600Cpjbm Strep (POC)[facility] HospitalRSV (POC)[facility] HospitalNo Panel Informationon 68-05-2627Lsrumatxm Type A (Rapid)NegativeNorwalk Memorial HospitalPO SARS CoV-2 Antigen NegativeNorwalk Memorial HospitalFollitropin [Units/volume] in Serum or PlasmaOrdered By: Micheal Bowilng on 31-66-4277Wrwyvuakrzu Qn4.9 m[IU]/mLNorwalk Memorial HospitalComment on above:FEMALE NORMALS (PREMENOPAUSE) MID- FOLLICULAR PHASE: 3.9-8.8 mIU/mL MID-CYCLE PEAK: 4.5-22.5 mIU/mL MID-LUTEAL PHASE: 1.8-5.1 mIU/mLFEMALE NORMALS (POSTMENOPAUSE): 16.7-113.6 mIU/mLMALE NORMALS: 1.3-19.3 mIU/mLRandom cortisol measurementOrdered By: Micheal Bowling on 20-67-2711Iqizhpgn [Mass/Vol]12.5 ug/dLNorwalk Memorial HospitalComment on above:[facility] mine exploration engineer and method:Klir TechnologiesEL DXI, POLYCLONAL ANTIBODY CORTISOL ASSAY.Reference range: AM 6 - 24 ug/dl PM <10 ug/dl Serum or plasma estradiol (E2) measurement (mass/volume)Ordered By: Micheal Bowling on 15-59-6447E7 [Mass/Vol]243.0 pg/mL.[facility] HospitalComment on above:Adult Female Range Follicular phase 12.5 - 166.0 Ovulation phase 85.8 - 498.0 Luteal phase 43.8 - 211.0 Postmenopausal <6.0 - 54.7 1st trimester 215.0 - >4300.0Roche ECLIA methodologyPerformed at: - [facility] [address] [id number] Director: Damir Young PhD, Phone: [phone] [Units/volume] in Serum or PlasmaOrdered By: Micheal Bowling on 78-86-1126SLN Qn3.28 m[IU]/L0.45-5.33[facility] Thyroxine (T4) free [Mass/volume] in Serum or PlasmaOrdered By: Micheal Bowling on 64-11-0529Lvqi T4 [Mass/Vol]0.86 ng/dL0.61-1.12[facility] Laboratory - Chemistry and Chemistry - challengeon 01-01-4178Rydrikprb Ql (U) NegativeNorwalk Memorial HospitalGlucose (U) [Mass/Vol]NegativeNorwalk Memorial HospitalKetones Ql (U)NegativeNorwalk [facility] Hospital pH (U)6.0 [pH][facility] Hospitalpecific gravity (U) [Rel density]1.025[facility] HospitalUrobilinogen (U) [Mass/Vol]0.2 mg/dLNorwalk Memorial HospitalLaboratory - Urinalysison 03-02-2024 Leukocyte esterase Test strip Ql (U)NegativeNorwalk Memorial Hospital Nitrite Ql (U)NegativeNorwalk Memorial HospitalProtein Ql (U)Negative [facility] HospitalNo Panel Informationon 37-41-9309Tprsa Occult BloodNegativeNorwalk Memorial HospitalHbA1c HPLC (Bld) [Mass fraction]on 66-93-5383QdQ0e (Bld) [Mass fraction]5.8 %[facility] Basophils Auto (Bld) [#/Vol]Ordered By: Lamont Long on 82-63-5946Kvwemtaht (Bld) [#/Vol]0.1 10*3/uL0.0-0.2FMercy Health Defiance HospitalBasophils/100 WBC Auto (Bld)Ordered By: Lamont Long on 65-71-4238Tnjypezvc/100 WBC (Bld)0.7 %. [facility] HospitalC reactive protein [Mass/volume] in Serum or PlasmaOrdered By: Lamont Long on 98-31-9123PXO [Mass/Vol]1.1 mg/dL0.0-0.5 [facility] HospitalEosinophils Auto (Bld) [#/Vol]Ordered By: Lamont Long on 48-87-2306Dseciobwklb (Bld) [#/Vol]0.4 10*3/uL0.0-0.45[facility] HospitalEosinophils/100 WBC Auto (Bld)Ordered By: Lamont Long on 73-66-9494Xyezsykappf/100 WBC (Bld)4.7 %.[facility] Erythrocyte distribution width Auto (RBC) [Ratio]Ordered By: Lamont Long on 71-58-3340Rzbfmrfwnof distribution width (RBC) [Ratio]13.2 %11.9-15.3FMercy Health Defiance HospitalErythrocyte sedimentation rate by Photometric method Ordered By: Lamont Long on 37-90-9449MPV Photometric method (Bld) [Velocity]15 mm/hr0-19Nor[facility] HospitalHematocrit Auto (Bld) [Volume fraction]Ordered By: Lamont Long on 50-86-6235Yibphylebz (Bld) [Volume fraction] 39.0 %34.0-46.4FMercy Health Defiance HospitalHemoglobin [Mass/volume] in BloodOrdered By: Lamont Long on 75-58-6840Cuflvgpyul (Bld) [Mass/Vol]13.4 g/dL 11.8-15.4FMercy Health Defiance HospitalLeukocytes [#/volume] corrected for nucleated erythrocytes in Blood by Automated counOrdered By: Lamont Long on 00-25-2261KEL corrected for nucl RBC Auto (Bld) [#/Vol]9.4 10*3/uL3.8-11.6 [facility] HospitalLymphocytes Auto (Bld) [#/Vol]Ordered By: Lamont Long on 71-01-6467Asrhwskosfl (Bld) [#/Vol]2.9 10*3/uL1.00-4.8[facility] HospitalLymphocytes/100 WBC Auto (Bld)Ordered By: Lamont Long on 22-49-0703Zbiodejbuhu/100 WBC (Bld)31.2 %.[facility] Auto (RBC) [Entitic mass]Ordered By: Lamont Long on 44-89-2441BTD (RBC) [Entitic mass]28.9 pg24.7-34.3FMarietta Memorial Hospital Auto (RBC) [Mass/Vol]Ordered By: Lamont Long on 40-34-3094ITAC (RBC) [Mass/Vol]34.3 g/dL 32.0-35.0[facility] HospitalMCV Auto (RBC) [Entitic vol]Ordered By: Lamont Long on 81-23-1920KXP (RBC) [Entitic vol]84.3 nG13-864BfholewsjNorwalk Memorial HospitalMonocytes Auto (Bld) [#/Vol]Ordered By: Lamont Long on 47-51-6468Ljbeedtdk (Bld) [#/Vol]0.6 10*3/uL0.0-0.8[facility] HospitalMonocytes/100 WBC Auto (Bld)Ordered By: Lamont Long on 09-05-2023 Monocytes/100 WBC (Bld)6.6 %.[facility] HospitalNeutrophils Auto (Bld) [#/Vol]Ordered By: Lamont Long on 57-33-4442Sifwfqctlzh (Bld) [#/Vol]5.3 10*3/uL1.8-7.7FMercy Health Defiance HospitalNeutrophils/100 WBC Auto (Bld) Ordered By: Lamont Long on 08-56-9665Wocuqjoeibu/100 WBC (Bld)56.8 %.[facility] HospitalNucleated erythrocytes [Presence] in Blood by Automated countOrdered By: Lamont Long on 93-63-7163Qdmrodocj RBC Auto Ql (Bld)0.1 /100{WBC}0-0.5FMercy Health Defiance HospitalPlatelet mean volume Auto (Bld) [Entitic vol]Ordered By: Lamont Long on 76-24-1531Wudszwrs mean volume (Bld) [Entitic vol]8.5 fL6.3-10.7FMercy Health Defiance HospitalPlatelets Auto (Bld) [#/Vol]Ordered By: Lamont Long on 21-44-2276Ccbvycomu (Bld) [#/Vol]269 10*3/uL 150-450Norwalk [facility] HospitalRBC Auto (Bld) [#/Vol]Ordered By: Lamont Long on 52-35-3265CII (Bld) [#/Vol]4.63 10*6/uL3.60-5.00Mar[facility] Hospitalerum homogeneous pattern antinuclear antibody (DAYDAY) titerOrdered By: Lamont Long on 90-69-5556Uqaafjfyig nuclear Ab pattern (S) [Titer]N/A Marion Hospitalerum nuclear antibody titerOrdered By: Lamont Long on 35-77-8307Fcytszg Ab (S) [Titer]Negative.[facility] HospitalComment on above:Negative <1:80 Borderline 1:80 Positive >1:80ICAP nomenclature: AC-0For more information about Hep-2 cell patterns useANApatterns.org, the official website for theInternational Consensus on Anti nuclear Antibody (DAYDAY)Patterns (ICAP).Performed at: [facility] [place], [id number] Director: Damir Young PhD, Phone: [phone] or plasma cyclic adenosine monophosphate measurement (moles/volume)Ordered By: Lamont Long on 34-53-6701Wfslghcmf monophosphate.cyclic [Moles/Vol]7 units0-19[facility] Comment on above:Negative <20 Weak positive 20 - 39 Moderate positive 40 - 59 Strong positive >59Performed at:[facility] [place], [place] [id number] Director: Damir Young PhD, Phone: [phone] or plasma rheumatoid factor measurement (units/volume)Ordered By: Lamont Long on 89-86-9634Jndjfaqwvl factor Qn10.4 [IU]/mL<14.0[facility] Comment on above:Performed at: [facility] [place], [place] [id number] Director: Damir Young PhD, Phone: [phone] 10 SGon 44-04-0492Lebwter DL <= 20 mg/L (U) [Mass/Vol]NegativeNokansas city va [facility] Other pH (U)5.5 [pH][place] [employer] Other Urine 10 SGNegativeNort [facility] Other Urine 10 SG1.020[place] [facility] Other Urine 10 SG0.2[place] [facility] Other WBC Auto (Bld) [#/Vol]Ordered By: Lamont Long on 33-85-5646GRN (Bld) [#/Vol]9.4 10*3/uL3.8-11.6FMercy Health Defiance Hospital Alanine aminotransferase [Enzymatic activity/volume] in Serum or PlasmaOrdered By: Micheal Bowling on 41-31-2001QLL [Catalytic activity/Vol]16 U/L7-52Nor[facility] HospitalAlbumin [Mass/volume] in Serum or Plasma by Bromocresol green (BCG) dye binding methoOrdered By: Micheal Bowling on 46-06-6497Ezojrvs BCG dye [Mass/Vol]4.5 g/dL3.5-5.7FMercy Health Defiance HospitalAlkaline phosphatase [Enzymatic activity/volume] in Serum or PlasmaOrdered By: Micheal Bowling on 94-21-9817ZHP [Catalytic activity/Vol]53 U/K52-669GjxmtmjexNorwalk Memorial HospitalAspartate aminotransferase [Enzymatic activity/volume] in Serum or Plasma Ordered By: Micheal Bowling on 45-04-6842TAU [Catalytic activity/Vol]14 U/L13-39 [facility] HospitalBasophils Auto (Bld) [#/Vol]Ordered By: Micheal Bowling on 05-65-6677Idxalvenn (Bld) [#/Vol]0.1 10*3/uL0.0-0.2FMercy Health Defiance HospitalBasophils/100 WBC Auto (Bld)Ordered By: Micheal Bowling on 06-18-2023 Basophils/100 WBC (Bld)0.7 %.[facility] HospitalBilirubin.total [Mass/volume] in Serum or PlasmaOrdered By: Micheal Bowling on 52-60-8294Mebbvpcbf [Mass/Vol]0.8 mg/dL0.3-1.0[facility] HospitalCalcium [Mass/volume] in Serum or PlasmaOrdered By: Micheal Bowling on 94-55-8829Urcjafv [Mass/Vol]9.5 mg/dL8.6-10.3FMercy Health Defiance HospitalCarbon dioxide, total [Moles/volume] in Serum or PlasmaOrdered By: Micheal Bowling on 80-51-7913FD3 [Moles/Vol]29.6 mmol/L21.0-31.0[facility] HospitalChloride [Moles/volume] in Serum or PlasmaOrdered By: Micheal Bowling on 60-38-9955Vxzpypxc [Moles/Vol]104 mmol/H20-177ZftosqzjnNorwalk Memorial HospitalCholesterol [Mass/volume] in Serum or PlasmaOrdered By: Micheal Bowling on 51-61-5097Nqvdlxpvubr [Mass/Vol]156 mg/lU992-802ZwlwvmvceNorwalk Memorial HospitalComment on above:Chol less than 200 mg/dl low riskChol 201-239 mg/dl borderline riskChol 240 mg/dl and greater high riskCholesterol in LDL Calc [Mass/Vol]Ordered By: Micheal Bowling on 98-58-3493Dfyzmzdjttn in LDL [Mass/Vol]84 mg/dL0-100Nor[facility] HospitalComment on above:LDL ATP III CLASSIFICATIONLDL less than 100 mg/dL OptimalLDL 100-129 mg/dL Near or above ajdhyzlWBA067-764 mg/dL Borderline highLDL 160-189 mg/dL HighLDL greater than 189 mg/dL Very highCholesterol in VLDL Calc [Mass/Vol]Ordered By: Micheal Bowling on 01-86-1657Mfldqqkcwhc in VLDL [Mass/Vol]28 mg/dLNorwalk Memorial HospitalComplete Blood Count Auto Diffon 12-34-1172Tgtfflkse (Bld) [#/Vol]0.606968832 10*3/uLNormal0.0-0.2 10*3/uL [employer] Other Basophils/100 WBC (Bld)0.700 %. %[employer] Other eosinophils (Bld) [#/Vol]0.769133155 10*3/uLHigh0.0- 0.45 10*3/uLNort [employer] Other Eosinophils/100 WBC (Bld)4.400 %. %[employer] Other Erythrocyte distribution width (RBC) [Ratio]13.200 % Qbaads61.9-15.3 %[employer] Other Hematocrit (Bld) [Volume fraction]41.300 %Ijbiyw52.0- 46.4 %[employer] Other Hemoglobin (Bld) [Mass/Vol]13.597961 g/bAMzlrbq71.8- 15.4 g/dLNoInterventional Imaging Other Lymphocytes (Bld) [#/Vol]3.699405743 10*3/uLNormal 1.00-4.8 10*3/[employer] Other Lymphocytes/100 WBC (Bld)28.800 %. %[employer] Other MCH (RBC) [Entitic mass]28.0000 geOfadvz92.7-34.3 pg [employer] Other MCV (RBC) [Entitic vol]84.7000 nXDltyqq39-324 fLInterventional Imaging Other Monocytes (Bld) [#/Vol]0.600389294 10*3/uLNormal0.0- 0.8 10*3/[employer] Other Monocytes/100 WBC (Bld)5.700 %. %[employer] Other Neutrophils (Bld) [#/Vol]7.778732116 10*3/uLNormal1.8- 7.7 10*3/[employer] Other Neutrophils/100 WBC (Bld)60.400 %. %[employer] Other Platelet mean volume (Bld) [Entitic vol]8.5000 fL Normal6.3-10.7 fLFort [place] [employer] Other WBC (Bld) [#/Vol]12.053373366 10*3/uLHigh3.8-11.6 10*3/uLNokansas city va medical center Lumiy Other Complete Blood Count Auto Diff12.5 10*3/uLHigh3.8-11.6 10*3/uLNokansas city va medical center [facility] Other Complete Blood Count Auto Diff33.1 g/wUSdyxem75.0-35.0 g/dLNokansas city va medical center Lum[facility] Other Complete Blood Count Auto Diff0.1 /100{WBC}Normal0-0.5 /100{WBC}[facility] [employer] Other Complete Blood Count Auto DiffOrdered By: Micheal Bowling on 92-45-4864Zrcwdeyto (Bld) [#/Vol]284 10*3/jL626-692ZvudpxagcNorwalk Memorial HospitalRBC (Bld) [#/Vol]4.88 10*6/uL3.60-5.00[facility] Creatinine [Mass/volume] in Serum or PlasmaOrdered By: Micheal Bowling on 06-18-2023 Creatinine [Mass/Vol]0.89 mg/dL0.60-1.20[facility] Eosinophils Auto (Bld) [#/Vol]Ordered By: Micheal Bowling on 84-69-3741Cjriyoirpss (Bld) [#/Vol]0.5 10*3/uL0.0-0.45[facility] HospitalEosinophils/100 WBC Auto (Bld)Ordered By: Micheal Bowling on 62-61-0441Rvqlgmtxiry/100 WBC (Bld)4.4 %.[facility] HospitalErythrocyte distribution width Auto (RBC) [Ratio]Ordered By: Micheal Bowling on 12-17-5920Hpmrmtiyykg distribution width (RBC) [Ratio]13.2 %11.9-15.3FMercy Health Defiance HospitalFollitropin [Units/volume] in Serum or PlasmaOrdered By: Micheal Bowling on 29-57-4363Uqirrpgqbmn Qn3.2 m[IU]/mLNorwalk Memorial HospitalComment on above:FEMALE NORMALS (PREMENOPAUSE) MID-FOLLICULAR PHASE: 3.9-8.8 mIU/mL MID-CYCLE PEAK: 4.5-22.5 mIU/mL MID-LUTEAL PHASE: 1.8-5.1 mIU/mLFEMALE NORMALS (POSTMENOPAUSE): 16.7- 113.6 mIU/mLMALE NORMALS: 1.3-19.3 mIU/mLGlobulin Calc (S) [Mass/Vol]Ordered By: Micheal Bowling on 75-48-8070Hekcebex (S) [Mass/Vol]2.6 g/dLNorwalk Memorial HospitalGlucose [Mass/volume] in Serum or PlasmaOrdered By: Micheal Bowling on 29-81-2031Ecclwuk [Mass/Vol]90 mg/hK85-144TghlrpmooNorwalk Memorial Hospital Comment on above:ADA recommended reference rangeRandom Glucose Reference Range is dependent on time and content of last meal. Glucose of more than 200 mg/dL in a nonstressed, ambulatory subject supports the diagnosisof Diabetes Mellitus. Hematocrit Auto (Bld) [Volume fraction]Ordered By: Micheal Bowling on 06-18-2023 Hematocrit (Bld) [Volume fraction]41.3 %34.0-46.4FMercy Health Defiance HospitalHemoglobin [Mass/volume] in BloodOrdered By: Micheal Bowling on 06-18-2023 Hemoglobin (Bld) [Mass/Vol]13.7 g/dL11.8-15.4FMercy Health Defiance Hospital Leukocytes [#/volume] corrected for nucleated erythrocytes in Blood by Automated counOrdered By: Micheal Bowling on 08-62-7715WGI corrected for nucl RBC Auto (Bld) [#/Vol]12.5 10*3/uL3.8-11.6FMercy Health Defiance HospitalLymphocytes Auto (Bld) [#/Vol]Ordered By: Micheal Bowling on 71-42-4630Rultraqshmz (Bld) [#/Vol]3.6 10*3/uL1.00-4.8[facility] HospitalLymphocytes/100 WBC Auto (Bld) Ordered By: Micheal Bowling on 57-98-8682Cbecdriqhdk/100 WBC (Bld)28.8 %.[facility] CenterH Auto (RBC) [Entitic mass]Ordered By: Micheal Bowling on 01-85-0585BLM (RBC) [Entitic mass]28.0 pg24.7-34.3FMercy Health Defiance HospitalMCHC Auto (RBC) [Mass/Vol]Ordered By: Micheal Bowling on 49-98-8564FBZH (RBC) [Mass/Vol]33.1 g/dL32.0-35.0[facility] HospitalMCV Auto (RBC) [Entitic vol]Ordered By: Micheal Bowling on 24-73-7345CKX (RBC) [Entitic vol]84.7 fL 80-100[facility] HospitalMonocytes Auto (Bld) [#/Vol]Ordered By: Micheal Bowling on 21-36-5703Etqdqivpc (Bld) [#/Vol]0.7 10*3/uL0.0-0.8[facility] HospitalMonocytes/100 WBC Auto (Bld)Ordered By: Micheal Bowling on 65-61-6726Yrdaffxxf/100 WBC (Bld)5.7 %.[facility] Neutrophils Auto (Bld) [#/Vol]Ordered By: Micheal Bowling on 93-67-0364Nslsjmamuja (Bld) [#/Vol]7.6 10*3/uL1.8-7.7FMercy Health Defiance HospitalNeutrophils/100 WBC Auto (Bld)Ordered By: Micheal Bowling on 91-53-3761Uqwjgsbwoja/100 WBC (Bld)60.4 %.[facility] HospitalNo Panel InformationOrdered By: Micheal Bowling on 43-67-9090Pukwwnkfl GFR (CKD-EPI)> 60.0 mL/MinNorwalk Memorial Hospital Pharmacy Creatinine Clearance (ChemN/[facility] HospitalNucleated erythrocytes [Presence] in Blood by Automated countOrdered By: Micheal Bowling on 35-23-4383Igdqsjtha RBC Auto Ql (Bld)0.1 /100{WBC}0-0.5FMercy Health Defiance HospitalPlatelet mean volume Auto (Bld) [Entitic vol]Ordered By: Micheal Bowling on 37-89-9148Mwyeynfx mean volume (Bld) [Entitic vol]8.5 fL6.3-10.7 [facility] HospitalPotassium [Moles/volume] in Serum or Plasma Ordered By: Micheal Bowling on 64-00-8061Jwkixvknt [Moles/Vol]3.8 mmol/L3.5-5.1 [facility] HospitalProtein [Mass/volume] in Serum or PlasmaOrdered By: Micheal Bowling on 30-68-3151Dksnznj [Mass/Vol]7.1 g/dL6.4-8.9Mar[facility] Hospitalerum or plasma albumin/globulin mass ratioOrdered By: Micheal Bowling on 16-83-1746Capygfd/Globulin [Mass ratio]1.7 {ratio}[facility] Hospitalerum or plasma anion gap determinationOrdered By: Micheal Bowling on 71-22-4913Budmo gap [Moles/Vol]9.2 mmol/L6.0-15.0[facility] Hospitalerum or plasma high density lipoprotein (HDL) cholesterol measurement Ordered By: Micheal Bowling on 35-83-0446Qyeuczadykb in HDL [Mass/Vol]43 mg/dL23-92 [facility] HospitalComment on above:HDL CHOL ATP-III CLASSIFICATION Cardiovascular RiskHDL > or equal to 60 mg/dL LOWHDL < 40 mg/dL HIGHSerum or plasma total cholesterol/high density lipoprotein (HDL) cholesterol mass ratOrdered By: Micheal Bowling on 04-62-2814Zwnxcrhzyib.total/Cholesterol in HDL [Mass ratio]3.6 {ratio}<5.0Mar[facility] Hospitalodium [Moles/volume] in Serum or PlasmaOrdered By: Micheal Bowling on 83-01-8724Defzcw [Moles/Vol]139 mmol/T515-882KiffplfwmNorwalk Memorial HospitalThyrotropin [Units/volume] in Serum or PlasmaOrdered By: Micheal Bowling on 19-92-7400NMH Qn3.76 m[IU]/L0.45-5.33[facility] HospitalTriglyceride [Mass/volume] in Serum or PlasmaOrdered By: Micheal Bowling on 88-47-1590Hjdymfpnconq [Mass/Vol]144 mg/dL0-149[facility] HospitalComment on above:TRIG ATP III CLASSIFICATIONTRIG less than 150 mg/dL NormalTRIG 150-199 mg/dL Borderline highTRIG 200-500 mg/dL High TRIG greater than 500 mg/dL Very highStandard traceable to the Center for Disease Conrtrol and Prevention (CDC) test method. Urea nitrogen [Mass/volume] in Serum or PlasmaOrdered By: Micheal Bowling on 88-09-2647Jqzb nitrogen [Mass/Vol]12 mg/dL7-25[facility] WBC Auto (Bld) [#/Vol]Ordered By: Micheal Bowling on 26-95-6765IYH (Bld) [#/Vol]12.5 10*3/uL3.8-11.6FMercy Health Defiance HospitalMicroalbumin Analyzeron 17-69-2141Ftwrxtc DL <= 20 mg/L (U) [Mass/Vol]mg/dLFort [place] [facility] Other Albumin Test strip detection limit <= 20 mg/L (U) [Mass/Vol]30Nokansas [facility] Other Creatinine (U) [Mass/Vol]300 mg/dLFort [place] [employer] Other urine 10 SGon 37-34-7796Lkejsle DL <= 20 mg/L (U) [Mass/Vol]30 mg/dLFort Cobb [employer] Other Albumin DL <= 20 mg/L (U) [Mass/Vol]Negative[place] [facility] Other pH (U)6.0 [pH][place] [employer] Other urine 10 SGNegativeFort Cobb [facility] Other Urine 10 SG1.030[place] [employer] Other Urine 10 SG0.2[place] [facility] Other CHEMISTRYOrdered By: SYSTEM SYSTEM on 02-04-2023 Albumin [Mass/Vol]4.1 g/dLNormal3.3 - 5.0 gm/dLFTMC RemisolAlbumin/Globulin [Mass ratio]1.2 {ratio}Normal1.1 - 2.2[facility] RemisolALP [Catalytic activity/Vol]47 [iU]/mBfbvde10 - 98 Int._Unit/LFTMC RemisolALT No additional P-5'-P [Catalytic activity/Vol]24 [iU]/dNormal6 - 46 Int._Unit/LFTMC RemisolAnion gap [Moles/Vol] 11 mmol/LNormal6 - 16 mEq/LFTMC RemisolAST [Catalytic activity/Vol]20 [iU]/d Normal5 - 43 Int._Unit/LFTMC RemisolBilirubin [Mass/Vol]0.9 mg/dLNormal0.0 - 1.1 mg/dLFTMC RemisolBilirubin.direct [Mass/Vol]0.2 mg/dLNormal0.1 - 0.4 mg/dLFTMC RemisolBilirubin.indirect [Mass or moles/Vol]0.7 mg/dLNormal0.1 - 0.9 mg/dLFTMC RemisolCalcium [Mass/Vol]9.2 mg/dLNormal8.9 - 11.1 mg/dLFTMC RemisolChloride [Moles/Vol]102 mmol/EEaesgh628 - 111 mmol/LFTMC RemisolCO2 [Moles/Vol]26 mmol/L Olqtuy92 - 31 mmol/LFTMC RemisolCreatinine [Mass/Vol]0.9 mg/dLNormal0.5 - 1.3 mg/dLFTMC RemisolGFR/1.73 sq M.predicted among non-blacks MDRD (S/P/Bld) [Vol rate/Area]80 mL/min/1.73 a8Kkwypy>=59mL/min/1.73 m2[facility] Chem SGlobulin (S) [Mass/Vol]3.5 g/dLNormal1.4 - 4.0 gm/dLFTMC RemisolGlucose [Mass/Vol]101 mg/dL Begttn00 - 199 mg/dLFTMC RemisolLipase [Catalytic activity/Vol]48 U/PObidjn48 - 58 unit/LFTMC RemisolPotassium [Moles/Vol]3.7 mmol/LNormal3.5 - 5.3 mmol/LFTMC RemisolProtein [Mass/Vol]7.6 g/dLNormal6.0 - 7.8 gm/dLFTMC RemisolSodium [Moles/Vol]135 mmol/MOmitqa895 - 145 mmol/LFTMC RemisolUrea nitrogen [Mass/Vol]9 mg/dLNormal5 - 21 mg/dLFTMC RemisolUrea nitrogen/Creatinine [Mass ratio]10 mg/owJqqseo83 - 20[facility] RemisolHEMATOLOGYOrdered By: SYSTEM SYSTEM on 02-04-2023 Basophils/100 WBC (Bld)0.9 %Normal0.0 - 2.0 %[facility] HemeAutoSSBasophils/Leukocytes Auto (Bld) [Pure # fraction]0.1 E9/LNormal0.0 - 0.2 E9/LFTMC HemeAutoSS Eosinophils/100 WBC (Bld)1.4 %Normal0.0 - 8.0 %[facility] HemeAutoSS Eosinophils/Leukocytes Auto (Bld) [Pure # fraction]0.2 E9/LNormal0.0 - 0.5 E9/L [facility] HemeAutoSSLymphocytes/100 WBC (Bld)27.2 %Luubnv21.0 - 50.0 %[facility] HemeAutoSS Lymphocytes/Leukocytes Auto (Bld) [Pure # fraction]3.3 E9/LNormal1.0 - 4.0 E9/L [facility] HemeAutoSSMonocytes/100 WBC (Bld)5.4 %Normal4.0 - 14.0 %[facility] HemeAutoSS Monocytes/Leukocytes Auto (Bld) [Pure # fraction]0.6 E9/LNormal0.2 - 1.0 E9/L [facility] HemeAutoSSNeutrophils/100 WBC (Bld)65.1 %Cswdsa53.0 - 75.0 %[facility] HemeAutoSS Neutrophils/Leukocytes Auto (Bld) [Pure # fraction]7.8 E9/LHigh2.0 - 7.5 E9/L [facility] HemeAutoSSHEMATOLOGYOrdered By: Dianna Watt on 45-98-2574Fnorldzogri distribution width (RBC) [Ratio]12.8 %Fkmpct57.9 - 14.2 %[facility] HemeAutoSS Hematocrit (Bld) [Volume fraction]39.7 %Jqsemv45.0 - 46.0 %[facility] HemeAutoSS Hemoglobin (Bld) [Mass/Vol]13.4 g/jJYbgaab74.0 - 16.0 gm/dLFTMC HemeAutoSSMCH (RBC) [Entitic mass]27.7 awLjirqc07.0 - 34.0 pgFTMC HemeAutoSSMCHC (RBC) [Mass/Vol]33.7 g/mSYhkwlk93.4 - 36.0 gm/dLFTMC HemeAutoSSMCV (RBC) [Entitic vol] 82.4 zWRnoltm31.0 - 100.0 fLFTMC HemeAutoSSPlatelet mean volume (Bld) [Entitic vol]8.4 fLNormal6.4 - 10.8 fLFTMC HemeAutoSSPlatelets (Bld) [#/Vol]313.0 E9/L Yivdgy555.0 - 500.0 E9/LFT[facility] HemeAutoSSRBC (Bld) [#/Vol]4.8 E12/LNormal4.3 - 5.9 E12/LFT[facility] HemeAutoSSWBC corrected for nucl RBC Auto (Bld) [#/Vol]12.0 E9/LHigh 4.0 - 11.0 E9/LFTMC HemeAutoSSURINALYSISOrdered By: Praful Benson on [id number] Ql (U)Negative (02/04/23 8:13 PM)NormalNegativeFT[facility] UA Auto SSClarity (U)Clear (02/04/23 8:13 PM)NormalClearFT[facility] UA Auto SSColor (U)Yellow (02/04/23 8:13 PM)NormalYellowFTMC UA Auto SSEpithelial cells.squamous LM.HPF (Urine sed) [#/Area]0-2 /HPFNormal0-2/HPFFTMC UA Auto SSGlucose Test strip (U) [Mass/Vol]Negative (02/04/23 8:13 PM)NormalNegativeROG[facility] [place] [facility] Auto SSHemoglobin Ql (U)Negative (02/04/23 8:13 PM)NormalNegativeROGER [facility] [place] [facility] Auto SSKetones (U) [Mass/Vol]Negative (02/04/23 8:13 PM)NormalNegativeROGER [facility] [place] UA Auto SSLithium.plasma/[place].RBC (Bld) [Mass ratio]0-3 /HPFNormal0-3/HPFFTMC UA Auto SSNitrite Ql (U)Negative (02/04/23 8:13 PM)NormalNegativeROGER [facility] [place] U[facility] Auto SSpH (U)6.5 *NA* (02/04/23 8:13 PM)Invalid Interpretation Code5.0 - 9.0[facility] [place] UA Auto SSProtein (U) [Mass/Vol]Negative (02/04/23 8:13 PM)NormalNegativeROGER [facility] [place] UA Auto SSSpecific gravity (U) [Rel density] <=1.005 *NA* (02/04/23 8:13 PM)Invalid Interpretation Code1.005 - 1.030[facility] [place] UA Auto SSUA Spec DescClean Catch (02/04/23 8:13 PM)NormalROGER [facility]ILLS [facility] [place] UA Auto SSUrobilinogen Qn (U)[id number] {Melina'U}/dL Normal0.0 - 1.0 EU/dLROGER MILLS [facility] [place] UA Auto SSWBC Auto Ql (U)Negative (02/04/23 8:13 PM)NormalNegativeROGER [facility] [place] U[facility] Auto SSWBC LM.HPF (Urine sed) [#/Area]0-5 /HPFNormal0-5/HPFROGER MILLS [facility] [place] UA Auto SSA1C HEMOGLOBINon 54-17-7219LfJ8v (Bld) [Mass fraction]5.0 %[facility] Other HbA1c (Bld) [Mass fraction]on 57-34-9083D0Q HEMOGLOBIN [employer] Other CARDIAC KRAIG ADMITon 15-18-1806EE [Catalytic activity/Vol]70 U/VSiwvnp61-702XlcMercer County Community HospitalComment on above:Performed By: #### INFLUAB #### [facility] [address] [place] [address] Dr. Nathanael Jordan.MB [Mass/Vol]0.96 ng/mLNormal<=3.60The [facility] Comment on above:Performed By: #### INFLUAB #### [facility] [address] [place] [address] Dr. Nathanael PalmerTROP6.9 pg/mLNormal4.0-51.3The [facility] PrebleComment on above:Result Comment: CUT-OFF POINTS HAVE BEEN ESTABLISHED BASED ON THE FOURTH UNIVERSAL DEFINITIONS OF MYOCARDIAL INFARCTION. THE UPPER REFERENCE LIMIT (URL) OF TROPONIN, DEFINED THE 99TH PERCENTILE OF cTnI DISTRIBUTION IN A REFERENCE POPULATION, HAS BEEN CONFIRMED THE DECISION THRESHOLD FOR DC DIAGNOSIS.Performed By: #### INFLUAB #### [facility] [address] [place] [address] Dr. Nathanael RichardO43 ng/mLNormal9-82The [facility] PrebleComment on above: Performed By: #### INFLUAB #### [facility] [address] [place] [address] Dr. Nathanael Tidwell AUTO DIFFon 72-67-2906ZYUH #0.1 103/ulNormal0.0-0.1Mer[facility] County Community HospitalComment on above:Performed By: #### CBC #### [facility] [address] [place] [address] Dr. Nathanael FreedmanBasophils/100 WBC (Bld)0.5 %Normal0.2-2.0[facility] Comment on above:Performed By: #### CBC #### [facility] [address] [place] [address] Dr. Nathanael Draper #0.1 103/ulNormal0.0-0.7The [facility]bleComment on above: Performed By: #### CBC #### [facility] [address] [place] [address] Dr. Nathanael Dawsonosinophils/100 WBC (Bld)1.0 %Normal0.9-7.0[facility] Comment on above:Performed By: #### CBC #### [facility] [address] [address] [address] Nathanael Dawsonrythrocyte distribution width (RBC) [Ratio]12.6 %Xwswjt44.0-15.0 The [facility] Hospitalment on above:Performed By: #### CBC #### [facility] [address] [address] [address] Nathanael FreedmanHematocrit (Bld) [Volume fraction]41.5 %Dozliz21.0-48.0The [facility] PrebleComment on above:Performed By: #### CBC #### [facility] [address] [place] [address] Dr. Nathanael FreedmanHemoglobin (Bld) [Mass/Vol]14.4 g/iHSwfabw25.0-16.0The [facility] PrebleComment on above:Performed By: #### CBC #### [facility] [address] [place] [address] Dr. Nathanael Fairbanks #0.07 10e3/ulCritically high0.00-0.03The [facility] Comment on above:Performed By: #### CBC #### [facility] [address] [place] [address] Dr. Nathanael Fairbanks %0.6 %Critically high0.0-0.5The [facility] PrebleComment on above:Performed By: #### CBC #### [facility] [address] [place] [address] Dr. Nathanael FigueroaH #2.3 103/ulNormal1.2-3.8The [facility] PrebleComment on above:Performed By: #### CBC #### [facility] [address] [place] [address] Dr. Nathanael Figueroahocytes/100 WBC (Bld)18.1 %Critically low20.5-60.0The [facility] PrebleComment on above:Performed By: #### CBC #### [facility] [address] [place] [address] Dr. Nathanael GarzaUAL DIFF REQNONormalThe [facility]bleComment on above: Performed By: #### CBC #### [facility] [address] [address] [address] Nathanael Smyth (RBC) [Entitic mass]28.6 wjKgnhkq62.7-34.0The [facility] PrebleComment on above:Performed By: #### CBC #### [facility] [address] [address] [address] Nathanael Smyth (RBC) [Mass/Vol]34.7 g/oMVgrhle02.9-35.2The [facility] PrebleComment on above:Performed By: #### CBC #### [facility] [address] [place] [address] Dr. Nathanael Smyth (RBC) [Entitic vol]82.3 mOMzuybb80.0-99.0The [facility] PrebleComment on above:Performed By: #### CBC #### [facility] [address] [place] [address] Dr. Nathanael Oliva #0.6 103/ulNormal0.3-0.8The [facility]bleComment on above:Performed By: #### CBC #### [facility] [address] [place] [address] Dr. Nathanael Vallesocytes/100 WBC (Bld)4.8 %Normal1.7-12.0[facility] Comment on above:Performed By: #### CBC #### [facility] [address] [address] [address] Nathanael Jones #9.3 103/ulCritically high1.4-6.5The [facility] Comment on above:Performed By: #### CBC #### [facility] [address] [place] [address] Dr. Nathanael Murilloutrophils/100 WBC (Bld)75.0 %Zuwmne80.0-75.0The [facility] PrebleComment on above:Performed By: #### CBC #### [facility] [address] [place] [address] Dr. Nathanael Cruz mean volume (Bld) [Entitic vol]9.6 fLNormal9.5-13.5The [facility] PrebleComment on above:Performed By: #### CBC #### [facility] [address] [place] [address] Dr. Nathanael FreedmanPLT332 103/mrKvbqjw973-313Jnc [facility] PrebleComment on above: Performed By: #### CBC #### [facility] [address] [place] [address] Dr. Nathanael FreedmanRBC5.04 106/ulNormal4.20-5.40The [facility] HospitalComment on above:Performed By: #### CBC #### [facility] [address] [place] [address] Dr. Nathanael FreedmanWBC12.4 103/ulCritically high4.0-11.0The [facility]bleComment on above:Performed By: #### CBC #### [facility] [address] [place] [address] Dr. Nathanael FreedmanMAGNESIUMon 55-94-4212Jucuwrort [Mass/Vol]1.9 mg/dLNormal1.8-2.4 The [facility] PrebleComment on above:Performed By: #### INFLUAB #### [facility] [address] [place] [address] Dr. Nathanael Mckeon 14(COMP METB)on 30-16-8779Atziovl [Mass/Vol]4.1 g/dLNormal 3.4-5.0The [facility] PrebleComment on above:Performed By: #### INFLUAB #### [facility] [address] [place] [address] Dr. Nathanael FreedmanAlbumin/Globulin [Mass ratio]1.1 {ratio}NormalThe [facility] PrebleComment on above:Performed By: #### INFLUAB #### [facility] [address] [place] [address] Dr. Nathanael NixonP [Catalytic activity/Vol]69 U/ARdkhrp07-148Nhw [facility] PrebleComment on above:Performed By: #### INFLUAB #### [facility] [address] [place] [address] Dr. Nathanael Carcamo [Catalytic activity/Vol]47 U/GKxfsng26-66Xeb [facility]bleComment on above:Performed By: #### INFLUAB #### [facility] [address] [place] [address] Dr. Nathanael Gonzalezon gap [Moles/Vol]13.7 mmol/LNormalMercer County Community Hospital Comment on above:Performed By: #### INFLUAB #### [facility] [address] [place] [address] Dr. Nathanael FreedmanAST [Catalytic activity/Vol]33 U/DFektxn72-29Oir [facility] PrebleComment on above:Performed By: #### INFLUAB #### [facility] [address] [place] [address] Dr. Nathanael FreedmanBilirubin [Mass/Vol]0.7 mg/dLNormal0.2-1.0The [facility] Comment on above:Performed By: #### INFLUAB #### [facility] [address] [place] [address] Dr. Nathanael FreedmanCalcium [Mass/Vol]9.2 mg/dLNormal8.5-10.1The [facility] Comment on above:Performed By: #### INFLUAB #### [facility] [address] [place] [address] Dr. Nathanael FreedmanChloride [Moles/Vol]102 mmol/BNhwtib07-495Lny [facility] Comment on above:Performed By: #### INFLUAB #### [facility] [address] [place] [address] Dr. Nathanael FreedmanCO2 [Moles/Vol]27.0 mmol/PAiqgfx38.0-32.0The [facility] Comment on above:Performed By: #### INFLUAB #### [facility] [address] [place] [address] Dr. Nathanael FreedmanCreatinine [Mass/Vol]0.86 mg/dLNormal0.55-1.02The [facility] PrebleComment on above:Performed By: #### INFLUAB #### [facility] [address] [place] [address] Dr. Nathanael DawsonGFR-AF BANGLADESHI>60Normal>=60The [facility]bleComment on above:Performed By: #### INFLUAB #### [facility] [address] [place] [address] Dr. Nathanael DawsonGFR-NON AF BANGLADESHI>60Normal>=60The [facility]bleComment on above:Performed By: #### INFLUAB #### [facility] [address] [place] [address] Dr. Nathanael FreedmanGlobulin (S) [Mass/Vol]3.6 g/dLNormalThe [facility]bleComment on above:Performed By: #### INFLUAB #### [facility] [address] [place] [address] Dr. Nathanael FreedmanGlucose [Mass/Vol]111 mg/dLCritically ylfd59-541Dff [facility]bleComment on above:Performed By: #### INFLUAB #### [facility] [address] [place] [address] Dr. Nathanael FreedmanPotassium [Moles/Vol]3.7 mmol/LNormal3.5-5.1The [facility] Comment on above:Performed By: #### INFLUAB #### [facility] [address] [place] [address] Dr. Nathanael FreedmanProtein [Mass/Vol]7.7 g/dLNormal6.4-8.2The [facility] Comment on above:Performed By: #### INFLUAB #### [facility] [address] [place] [address] Dr. Nathanael FreedmanSodium [Moles/Vol]139 mmol/VMcetsm007-163Hpv [facility] Comment on above:Performed By: #### INFLUAB #### [facility] [address] [place] [address] Dr. Nathanael FreedmanUrea nitrogen [Mass/Vol]6.0 mg/dLCritically low7.0-18.0The [facility]bleComment on above:Performed By: #### INFLUAB #### [facility] [address] [place] [address] Dr. Nathanael FreedmanUrea nitrogen/Creatinine [Mass ratio]7.0 mg/mgNormShelby Memorial HospitalComment on above:Performed By: #### INFLUAB #### [facility] [address] [place] [address] Dr. Nathanael Moore, HIGH SENSITIVITYon 40-62-3399TOCIYW9.0 pg/mLNormal 4.0-51.3The [facility]bleComment on above:Result Comment: CUT-OFF POINTS HAVE BEEN ESTABLISHED BASED ON THE FOURTH UNIVERSAL DEFINITIONS OF MYOCARDIAL INFARCTION. THE UPPER REFERENCE LIMIT (URL) OF TROPONIN, DEFINED THE 99TH PERCENTILE OF cTnI DISTRIBUTION IN A REFERENCE POPULATION, HAS BEEN CONFIRMED THE DECISION THRESHOLD FOR DC DIAGNOSIS.Performed By: #### HSTROPN #### [facility] [address] [place] [address] Dr. Nathanael FreedmanCOVID/FLU/RSV RT-PCRon 12-52-8686HMCS-CoV-2 (COVID-19) RNA KIRTI+probe Ql (Unsp spec)PositiveNoKindred Hospital [facility] [employer] Other COVID/FLU/RSV RT-PCRNegativeNoMideoMe Other ct Chest w/o Contraston 64-02-1614MJ Chest w/o ContrastHISTORY: Dry cough. Shortness of breath. Wheezing. Chest tightness. Dyspnea. [...] and signed by Brown Alvarenga on 11/01/2022 1556NormalNorthern California Medical SpecialistCOVID + FLU Quick Testingon 69-84-8710AXST-CoV-2 (COVID- 19) RNA KIRTI+probe Ql (Unsp spec)NegativeFort Cobb [employer] Other COVID + FLU Quick TestingNegativeNokansas city va medical center [facility] Other CBC AUTO DIFFon 34-54-7133ZTTP #0.1 103/ulNormal 0.0-0.1The [facility]bleComment on above:Performed By: #### CBC #### [facility] [address] [address] [address] Nathanael FreedmanBasophils/100 WBC (Bld)0.7 %Normal0.2-2.0The [facility] Comment on above:Performed By: #### CBC #### [facility] [address] [address] [address] Nathanael Draper #0.4 103/ulNormal0.0-0.7The [facility]bleComment on above: Performed By: #### CBC #### [facility] [address] [address] [address] Nathanael Dawsonosinophils/100 WBC (Bld)4.8 %Normal0.9-7.0The [facility] Comment on above:Performed By: #### CBC #### [facility] [address] [address] [address] Nathanael Dawsonrythrocyte distribution width (RBC) [Ratio]11.9 %Srjezk25.0-15.0 The [facility] PrebleComment on above:Performed By: #### CBC #### [facility] [address] [address] [address] Nathanael FreedmanHematocrit (Bld) [Volume fraction]38.2 %Qkhzms82.0-48.0The [facility]bleComment on above:Performed By: #### CBC #### [facility] [address] [address] [address] Nathanael FreedmanHemoglobin (Bld) [Mass/Vol]13.3 g/uQYmhqug98.0-16.0The [facility]bleComment on above:Performed By: #### CBC #### [facility] [address] [address] [address] Nathanael Fairbanks #0.05 10e3/ulCritically high0.00-0.03The [facility] Comment on above:Performed By: #### CBC #### [facility] [address] [place] [address] Dr. Nathanael Fairbanks %0.7 %Critically high0.0-0.5The [facility]bleComment on above:Performed By: #### CBC #### [facility] [address] [place] [address] Dr. Nathanael Carrington #0.5 103/ulCritically low1.2-3.8The [facility] Comment on above:Performed By: #### CBC #### [facility] [address] [place] [address] Dr. Nathanael Figueroahocytes/100 WBC (Bld)6.3 %Critically low20.5-60.0The [facility] PrebleComment on above:Performed By: #### CBC #### [facility] [address] [place] [address] Dr. Nathanael GarzaUAL DIFF REQNONormalThe [facility] PrebleComment on above: Performed By: #### CBC #### [facility] [address] [place] [address] Dr. Nathanael Smyth (RBC) [Entitic mass]28.9 jvOxxuyu65.7-34.0The [facility] PrebleComment on above:Performed By: #### CBC #### [facility] [address] [place] [address] Dr. Nathanael Smyth (RBC) [Mass/Vol]34.8 g/pECuvrft82.9-35.2The [facility]bleComment on above:Performed By: #### CBC #### [facility] [address] [address] [address] Nathanael SmythV (RBC) [Entitic vol]82.9 wLTetvcj45.0-99.0The [facility] Hospitalment on above:Performed By: #### CBC #### [facility] [address] [address] [address] Nathanael Oliva #0.5 103/ulNormal0.3-0.8The [facility]bleComment on above:Performed By: #### CBC #### [facility] [address] [place] [address] Dr. Nathanael Vallesocytes/100 WBC (Bld)6.5 %Normal1.7-12.0The [facility] Comment on above:Performed By: #### CBC #### [facility] [address] [place] [address] Dr. Nathanael MurilloUT #6.1 103/ulNormal1.4-6.5The [facility]bleComment on above:Performed By: #### CBC #### [facility] [address] [place] [address] Dr. Nathanael Murilloutrophils/100 WBC (Bld)81.0 %Critically high43.0-75.0The [facility] PrebleComment on above:Performed By: #### CBC #### [facility] [address] [place] [address] Dr. Nathanael Underwoodlet mean volume (Bld) [Entitic vol]9.9 fLNormal9.5-13.5The [facility] PrebleComment on above:Performed By: #### CBC #### [facility] [address] [place] [address] Dr. Nathanael FreedmanPLT237 103/zdSqicuw112-483Zgk [facility] PrebleComment on above: Performed By: #### CBC #### [facility] [address] [place] [address] Dr. Nathanael FreedmanRBC4.61 106/ulNormal4.20-5.40The [facility] PrebleComment on above:Performed By: #### CBC #### [facility] [address] [place] [address] Dr. Nathanael FreedmanWBC7.5 103/ulNormal4.0-11.0The [facility] PrebleComment on above: Performed By: #### CBC #### [facility] [address] [place] [address] Dr. Nathanael FreedmanCULTURE BLOODon 94-36-3430Lxgihnakhsb examination of blood, cultureCulture Observations: NO GROWTH AT 5 DAYS.NormalThe [facility] PrebleComment on above:Performed By: #### CVDTBH #### [facility] [address] [place] [address] Dr. Nathanael FreedmanMicroscopic examination of blood, cultureCulture Observations: NO GROWTH AT 5 DAYS.NormalThe [facility] PrebleComment on above:Performed By: #### CVDTBH #### [facility] [address] [place] [address] Dr. Nathanael FreedmanCovid-19 PCR ([facility])on 72-63-8135LGFU-CoV-2 (COVID-19) RNA KIRTI+probe Ql (Unsp spec)Not detectedNormalNOT DETECTEDMercer County Community Hospital Comment on above:Result Comment: This test is not yet approved or cleared by the [place] FDA. When there are no FDA-approved or cleared tests available, and other criteria are met, FDA can make tests available under an emergency access mechanism called an Emergency Use Authorization (EUA). The EUA for this test is supported by the Acting Manager of Health and Human Service's (HHS's) declaration that circumstances exist to justify the emergency use of in vitro diagnostics for the detection and/or diagnosis of the virus that causes COVID- 19. This EUA will remain in effect (meaning [...] of clinical signs and symptoms consistent with SARS-CoV-2.Performed By: #### CVDTBH #### [facility] [address] [address] [address] Nathanael Ruff URINE PROFILEon 47-64-7663Xbtsgyase Ql (U)NegativeNormal NEGATIVEMercer County Community HospitalComment on above:Performed By: #### ALEXANDRE UMICRO #### [facility] [address] [address] [address] Nathanael FreedmanClarity (U)CLEARNormalCLEARMercer County Community HospitalComment on above: Performed By: #### ALEXANDRE UMICRO #### [facility] [address] [address] [address] Nathanael Mosquera (U)LT. YELLOWNormalYELLOWMercer County Community HospitalComment on above:Performed By: #### ALEXANDRE UMICRO #### [facility] [address] [place] [address] Dr. Nathanael Mendoza micrscopic examination will be performed if indicated. NormalMercer County Community HospitalComment on above:Performed By: #### ALEXANDRE UMICRO #### [facility] [address] [place] [address] Dr. Nathanael FreedmanGlucose Ql (U)NegativeNormalNEGATIVEMercer County Community HospitalComment on above:Performed By: #### ALEXANDRE UMICRO #### [facility] [address] [address] [address] Nathanael FreedmanHemoglobin Ql (U)TRACE-LYSEDAbnormalNEGATIVEToledo Hospital on above:Performed By: #### ALEXANDRE UMICRO #### [facility] [address] [address] [address] Nathanael FreedmanKetones Ql (U)NegativeNormalNEGATIVEMercer County Community HospitalComment on above:Performed By: #### ALEXANDRE UMICRO #### [facility] [address] [place] [address] Dr. Nathanael FreedmanLEUKOCYTESNegativeNormalNEGATIVEMercer County Community HospitalComment on above:Performed By: #### ALEXANDRE UMICRO #### [facility] [address] [place] [address] Dr. Nathanael Silvestre Ql (U)NegativeNormalNEGATIVEThe [facility] PrebleComment on above:Performed By: #### NIALL SCHROEDER #### [facility] [address] [place] [address] Dr. Nathanael FreedmanpH (U)6.5 [pH]Normal5-9The [facility] PrebleComment on above: Performed By: #### FABIOLA SCHROEDERRO #### [facility] [address] [place] [address] Dr. Nathanael FreedmanSPEC GRAVITY1.131Moikzq0.005-<=1.025The [facility] PrebleComment on above:Performed By: #### NIALL SCHROEDER #### [facility] [address] [place] [address] Dr. Nathanael Haro PROTEINNegativeNormalNEGATIVE/ TRACEThe [facility] Comment on above:Performed By: #### NIALL SCHROEDER #### [facility] [address] [place] [address] Dr. Nathanael Harmon MICRO INDINDICATEDNoOhioHealth Hardin Memorial HospitalComment on above: Performed By: #### FABIOLA SCHROEDERRO #### [facility] [address] [place] [address] Dr. Nathanael Harper Qn (U)0.2 {Melina'U}/dLNormal0.2 - 1.0The [facility] PrebleComment on above:Performed By: #### FABIOLA SCHROEDERRO #### [facility] [address] [place] [address] Dr. Nathanael GarciaZA A AND B AGon 36-41-0217VPVVMOTLBPBJQFulton County Health CenterComment on above:Result Comment: Negative for Flu A protein angiten. Infection due to Flu A cannot be ruled out. FluA angiten in the sample may be below the detection limit of the test.Performed By: #### INFLUAB #### [facility] [address] [place] [address] Dr. Nathanael SnowdenUBNEGHSEE [facility] on above: Result Comment: Negative for Flu B protein antigen. Infection due to Flu B cannot be ruled out. FluB antigen in the sample may be below the detection limit of the test.Performed By: #### INFLUAB #### [facility] [address] [place] [address] Dr. Nathanael Blackwood AGNegativeNormalNEGATIVE SEE COMMENTThe [facility] PrebleComharbor oaks hospital on above:Performed By: #### INFLUAB #### [facility] [address] [place] [address] Dr. Nathanael Wade AGNegativeNormalNEGATIVE SEE COMMENTThe [facility] on above:Performed By: #### INFLUAB #### [facility] [address] [place] [address] Dr. Nathanael FreedmanINTERNAL CONTROLSWithin Normal LimitsNormalWithin Normal Limits The [facility] PrebleComment on above:Performed By: #### INFLUAB #### [facility] [address] [place] [address] Dr. Nathanael FreedmanLACTATE/LACTIC ACIDon 68-75-9307Zlawaez [Moles/Vol]1.0 mmol/L Normal0.4-1.9The [facility] on above:Performed By: #### INFLUAB #### [facility] [address] [place] [address] Dr. Nathanael FreedmanPROF 14(COMP METB)on 22-53-3509Ytreqdb [Mass/Vol]4.0 g/dLNormal 3.4-5.0The [facility] Hospitalment on above:Performed By: #### INFLUAB #### [facility] [address] [place] [address] Dr. Nathanael FreedmanAlbumin/Globulin [Mass ratio]1.1 {ratio}NormalThe [facility] on above:Performed By: #### INFLUAB #### [facility] [address] [place] [address] Dr. Nathanael FreedmanALP [Catalytic activity/Vol]62 U/YXtwqvd69-006Sfd [facility] HospitalComment on above:Performed By: #### INFLUAB #### [facility] [address] [address] [address] Nathanael Carcamo [Catalytic activity/Vol]31 U/HRxrchs58-73Fzx [facility] PrebleComment on above:Performed By: #### INFLUAB #### [facility] [address] [address] [address] Nathanael Gonzalezon gap [Moles/Vol]15.0 mmol/LNormalThe [facility] Comment on above:Performed By: #### INFLUAB #### [facility] [address] [address] [address] Nathanael FreedmanAST [Catalytic activity/Vol]33 U/UKuqpid82-14Loi [facility] PrebleComment on above:Performed By: #### INFLUAB #### [facility] [address] [address] [address] Nathanael FreedmanBilirubin [Mass/Vol]0.5 mg/dLNormal0.2-1.0[facility] Comment on above:Performed By: #### INFLUAB #### [facility] [address] [address] [address] Nathanael FreedmanCalcium [Mass/Vol]9.2 mg/dLNormal8.5-10.1[facility] Comment on above:Performed By: #### INFLUAB #### [facility] [address] [address] [address] Nathanael FreedmanChloride [Moles/Vol]99 mmol/ONcxiao25-649Scb [facility] Comment on above:Performed By: #### INFLUAB #### [facility] [address] [address] [address] Nathanael FreedmanCO2 [Moles/Vol]27.0 mmol/YEmufma28.0-32.0The [facility] Comment on above:Performed By: #### INFLUAB #### [facility] [address] [address] [address] Nathanael FreedmanCreatinine [Mass/Vol]0.86 mg/dLNormal0.55-1.02The [facility] HospitalComment on above:Performed By: #### INFLUAB #### [facility] [address] [address] [address] Nathanael DawsonGFR-AF BANGLADESHI>60Normal>=60The [facility]Comment on above:Performed By: #### INFLUAB #### [facility] [address] [address] [address] Nathanael DawsonGFR-NON AF BANGLADESHI>60Normal>=60The [facility]Comment on above:Performed By: #### INFLUAB #### [facility] [address] [address] [address] Nathanael FreedmanGlobulin (S) [Mass/Vol]3.8 g/dLNormalThe [facility]Comment on above:Performed By: #### INFLUAB #### [facility] [address] [place] [address] Dr. Nathanael FreedmanGlucose [Mass/Vol]106 mg/sOLayqsz48-342CovMercer County Community Hospital Comment on above:Performed By: #### INFLUAB #### [facility] [address] [place] [address] Dr. Nathanael FreedmanPotassium [Moles/Vol]4.0 mmol/LNormal3.5-5.1[facility] Comment on above:Performed By: #### INFLUAB #### [facility] [address] [place] [address] Dr. Nathaanel FreedmanProtein [Mass/Vol]7.8 g/dLNormal6.4-8.2[facility] Comment on above:Performed By: #### INFLUAB #### [facility] [address] [place] [address] Dr. Nathanael FreedmanSodium [Moles/Vol]137 mmol/WBbftis506-056Wgo [facility] Comment on above:Performed By: #### INFLUAB #### [facility] [address] [address] [address] Nathanael FreedmanUrea nitrogen [Mass/Vol]8.0 mg/dLNormal7.0-18.0The [facility]Comment on above:Performed By: #### INFLUAB #### [facility] [address] [address] [address] Nathanael FreedmanUrea nitrogen/Creatinine [Mass ratio]9.3 mg/mgCleveland Clinic FoundationComharbor oaks hospital on above:Performed By: #### INFLUAB #### [facility] [address] [address] [address] Nathanael Carranza MICROSCOPIC ONLYon [id number]T SEEN [facility] on above:Performed By: #### ERUR, UMICRO #### [facility] [address] [address] [address] Nathanael Goldbergctleo identified Cx Nom (U)NOT INDICATEDBrecksville VA / Crille [facility] on above:Performed By: #### ERUR, UMICRO #### [facility] [address] [place] [address] Dr. Nathanael Oglesby SEENNormalNONE SEENMedina Hospital on above:Performed By: #### ERUR, UMICRO #### [facility] [address] [place] [address] Dr. Nathanael Mcguireystals LM Nom (Urine sed)NONE SEENNormalNONE SEENMedina Hospital on above:Performed By: #### ERUR, UMICRO #### [facility] [address] [place] [address] Dr. Huffman ChangEpithelial cells LM Ql (Urine sed)MODERATEAbnormalNONE SEEN /RARE The [facility] on above:Performed By: #### ERUR, UMICRO #### [facility] [address] [address] [address] Nathanael MccannCOUSTRACEAbnormalNONE SEENMedina Hospital on above:Performed By: #### ERUR, UMICRO #### [facility] [address] [address] [address] Nathanael FreedmanZinmwWTC2-3Itcbjrbh7-5Dul [facility] on above:Performed By: #### ERUR, UMICRO #### [facility] [address] [place], [place] [address] Dr. Nathanael FreedmanWBC0-2AbnormalBANNERSavanah Lutheran HospitalComment on above: Performed By: #### NIALL SCHROEDER #### [facility] [address] [place], [place] [address] Dr. Nathanael FreedmanCreatinine and Glomerular filtration rate.predicted panel (S/P/Bld)Ordered By: Jr Mancini on 12-93-9095Qqebmmpcgw [Mass/Vol]0.75 mg/dL0.44-1.03[facility] HospitalEstimated glomerular filtration rate (GFR) non- AmericanOrdered By: Jr Mancini on 09-13-2022 GFR/1.73 sq M.predicted among non-blacks MDRD (S/P/Bld) [Vol rate/Area]> 60 mL/MinNorwalk Memorial HospitalNo Panel InformationOrdered By: Jr Mancini on 57-86-1273Qgarhxkaa GFR ()> 60 mL/Min [facility] HospitalComment on above:GFR estimated reference range: According to KDOQI guidelines, <60 ml/min/1.73m2 is sufficient todiagnose a patient with chronic kidney disease.Pharmacy Creatinine Clearance (Chem87.86 [facility] Hospitalerum or plasma anion gap determinationOrdered By: Jr Mancini on 29-64-1780Makgn gap [Moles/Vol]9.4 mmol/L6.0-15.0 [facility] Hospitalerum or plasma calcium measurement (mass/volume)Ordered By: Jr Mancini on 18-29-9345Vokkbps [Mass/Vol]8.8 mg/dL8.2-10.2FCentervilleerum or plasma chloride measurement (moles/volume)Ordered By: Jr Mancini on 33-70-4367Kdoiumop [Moles/Vol]106 mmol/H23-185QqavlxqwqMarion Hospitalerum or plasma glucose measurement (mass/volume)Ordered By: Jr Mancini on 09-13-2022 Glucose [Mass/Vol]110 mg/gG95-438BvnsvudtcNorwalk Memorial HospitalComment on above:ADA recommended reference rangeRandom Glucose Reference Range is dependent on time and content of last meal. Glucose of more than 200 mg/dL in a nonstressed, ambulatory subject supports the diagnosisof Diabetes Mellitus.Serum or plasma potassium measurement (moles/volume)Ordered By: Jr Mancini on 28-33-9058Llhhphflh [Moles/Vol]3.6 mmol/L3.5-5.1FCentervilleerum or plasma sodium measurement (moles/volume)Ordered By: Jr Mancini on 04-56-4594Ckkscr [Moles/Vol]136 mmol/L700-867NwngnjuyvMarion Hospitalerum or plasma total carbon dioxide measurement (moles/volume)Ordered By: Jr Mancini on 50-81-3281FW5 [Moles/Vol]24.2 mmol/L22.0-30.0[facility] Hospitalerum or plasma urea nitrogen measurement (mass/volume) Ordered By: Jr Mancini on 15-61-9414Ttej nitrogen [Mass/Vol]8 mg/dL9-23 [facility] HospitalC reactive protein [Mass/volume] in Serum or PlasmaOrdered By: Micheal Bowling on 69-60-9428SOH [Mass/Vol]1.1 mg/dL0.0-1.0 [facility] HospitalErythrocyte sedimentation rate by Photometric methodOrdered By: Micheal Bowling on 30-63-7049VQR Photometric method (Bld) [Velocity]12 mm/hr0-19Mar[facility] Hospitalerum nuclear antibody titerOrdered By: Micheal Bowling on 84-00-7993Njjqfhd Ab (S) [Titer]Negative. [facility] HospitalComment on above:Negative <1:80 Borderline 1:80 Positive >1:80 ICAP nomenclature: AC-0 For more information about Hep-2 cell patterns use ANApatterns.org, the official website for the International Consensus on Antinuclear Antibody (DAYDAY) Patterns (ICAP). Performed at: [facility] [id number] [address] Specialist: Damir Young PhD, Phone: [phone] or plasma rheumatoid factor measurement (units/volume)Ordered By: Micheal Bowling on 23-94-1412Ujzxyamlld factor Qn[IU]/mL<14.0[facility] HospitalComment on above: Performed at: - [facility] [id number] [address] Specialist: Damir Young PhD, Phone: [phone] or plasma uric acid measurement (mass/volume)Ordered By: Micheal Bowling on 04-08-3584Eyjwc [Mass/Vol]4.4 mg/dL2.6-7.2FMercy Health Defiance HospitalCBC W MANUAL DIFFon 03-20-2022 ATYPICAL LYMPH #NormalThe [facility]Comment on above:Performed By: #### CVDTBH #### [facility] [address] [place] [address] Dr. Nathanael aVngICAL LYMPH %NormalThe [facility]Comment on above: Performed By: #### CVDTBH #### [facility] [address] [place] [address] Dr. Nathanael Watters #0.1 103/ulNormal0.0-0.3The [facility] HospitalComment on above:Performed By: #### CVDTBH #### [facility] [address] [place] [address] Dr. Nathanael Watters %2 %Normal0-5The [facility]Comment on above:Performed By: #### CVDTBH #### [facility] [address] [place] [address] Dr. Nathanael Peterson #0.00 103/ulNormal0.00-0.10The [facility]Comment on above:Performed By: #### CVDTBH #### [facility] [address] [place] [address] Dr. Nathanael Peterson %0.0 %Critically low0.2-2.0The [facility] HospitalComment on above:Performed By: #### CVDTBH #### [facility] [address] [place] [address] Dr. Nathanael Esteves #NormalThe [facility] HospitalComment on above:Performed By: #### CVDTBH #### [facility] [address] [address] [address] Nathanael FreedmanBLAST %NormalThe [facility]Comment on above:Performed By: #### CVDTBH #### [facility] [address] [address] [address] Nathanael FreedmanCORRECTED WBCNormal4.0-11.0The [facility]Comment on above: Performed By: #### CVDTBH #### [facility] [address] [place] [address] Dr. Nathanael Vasquez #0.13 103/ulNormal0.00-0.70The [facility]Comment on above:Performed By: #### CVDTBH #### [facility] [address] [place] [address] Dr. Nathanael Vasquez%2.0 %Normal0.9-7.0The [facility]bleComment on above: Performed By: #### CVDTBH #### [facility] [address] [place] [address] Dr. Nathanael FreedmanHCT37.3 %Sjiziy54.0-48.0The [facility]bleComment on above: Performed By: #### CVDTBH #### [facility] [address] [place] [address] Dr. Nathanael FreedmanHGB12.5 g/noEajepw70.0-16.0The [facility]bleComment on above: Performed By: #### CVDTBH #### [facility] [address] [place] [address] Dr. Nathanael Perry #0.50 103/ulCritically low1.20-3.80The [facility] Comment on above:Performed By: #### CVDTBH #### [facility] [address] [place] [address] Dr. Nathanael Perry%8.0 %Critically low20.5-60.0The [facility]bleComment on above:Performed By: #### CVDTBH #### [facility] [address] [place] [address] Dr. Nathanael SmythH29.0 tdOqjpjq64.7-34.0The [facility]bleComment on above: Performed By: #### CVDTBH #### [facility] [address] [place] [address] Dr. Nathanael SmythHC33.5 g/nbIwayyl45.9-35.2The [facility] HospitalComment on above:Performed By: #### CVDTBH #### [facility] [address] [place] [address] Dr. Nathanael SmythV86.5 iYEroguo78.0-99.0The [facility]bleComment on above: Performed By: #### CVDTBH #### [facility] [address] [place] [address] Dr. Nathanael DavisOCYTE #NormalThe [facility] HospitalComment on above: Performed By: #### CVDTBH #### [facility] [address] [place] [address] Dr. Nathanael DavisOCYTE %NormalThe [facility]Comment on above: Performed By: #### CVDTBH #### [facility] [address] [place] [address] Dr. Nathanael Pearce#0.19 103/ulCritically low0.30-0.80The [facility] Comment on above:Performed By: #### CVDTBH #### [facility] [address] [place] [address] Dr. Nathanael Pearce%3.0 %Normal1.7-12.0The [facility]Comment on above: Performed By: #### CVDTBH #### [facility] [address] [place] [address] Dr. Nathanael FreedmanMPV10.1 fLNormal9.5-13.5The [facility]bleComment on above: Performed By: #### CVDTBH #### [facility] [address] [place] [address] Dr. Nathanael Bear #NormalThe [facility] HospitalComment on above:Performed By: #### CVDTBH #### [facility] [address] [place] [address] Dr. Nathanael MorrowOCYTE %NormalMercer County Community HospitalComment on above:Performed By: #### CVDTBH #### [facility] [address] [place] [address] Dr. Nathanael PaulsonBCNormalThe [facility]bleComment on above:Performed By: #### CVDTBH #### [facility] [address] [place] [address] Dr. Nathanael CookT195 103/ucHtfars187-307Ycu [facility]bleComment on above: Performed By: #### CVDTBH #### [facility] [address] [place] [address] Dr. Nathanael MojicaC4.31 106/ulNormal4.20-5.40The [facility]bleComment on above:Performed By: #### CVDTBH #### [facility] [address] [place] [address] Dr. Nathanael SaleemW12.8 %Aadcjo44.0-15.0The [facility]bleComment on above: Performed By: #### CVDTBH #### [facility] [address] [place] [address] Dr. Nathanael Barrios #5.36 103/ulNormal1.40-6.50The [facility]Comment on above:Performed By: #### CVDTBH #### [facility] [address] [place] [address] Dr. Nathanael Barrios %85.0 %Critically high43.0-75.0The [facility]bleComment on above:Performed By: #### CVDTBH #### [facility] [address] [place] [address] Dr. Nathanael CrandallBC6.3 103/ulNormal4.0-11.0The [facility]bleComment on above: Performed By: #### CVDTBH #### [facility] [address] [place] [address] Dr. Nathanael Tran 05-83-3399AUN4.7 mg/dLCritically high<=1.0The [facility]bleComment on above:Performed By: #### CVDTBH #### [facility] [address] [address] [address] Nathanael FreedmanLACTATE/LACTIC ACIDon 03-74-7254Bvnazxa [Moles/Vol]0.7 mmol/L Normal0.4-1.9The [facility]bleComment on above:Performed By: #### HSTROPN, CMP, CRP #### [facility] [address] [address] [address] Nathanael Arce PROFILEon 83-44-0746Rjsturr [Mass/Vol]3.8 g/dLNormal3.4-5.0 The [facility]bleComment on above:Performed By: #### CVDTBH #### [facility] [address] [place] [address] Dr. Nathanael FreedmanAlbumin/Globulin [Mass ratio]1.1 {ratio}NormalThe [facility] PrebleComment on above:Performed By: #### CVDTBH #### [facility] [address] [place] [address] Dr. Nathanael Nicole [Catalytic activity/Vol]60 U/ZLjlgjo08-425Vkz [facility] PrebleComment on above:Performed By: #### CVDTBH #### [facility] [address] [place] [address] Dr. Nathanael Carcamo [Catalytic activity/Vol]29 U/LBtojth86-60Tit [facility]bleComment on above:Performed By: #### CVDTBH #### [facility] [address] [place] [address] Dr. Nathanael Ortiz [Catalytic activity/Vol]19 U/ANfuxqa09-51Cpx [facility]bleComment on above:Performed By: #### CVDTBH #### [facility] [address] [place] [address] Dr. Nathanael Corbin, CONJUGATED0.1 mg/dLNormal0.0-0.2The [facility] Comment on above:Performed By: #### CVDTBH #### [facility] [address] [place] [address] Dr. Nathanael FreedmanBilirubin [Mass/Vol]0.6 mg/dLNormal0.2-1.0The [facility] Comment on above:Performed By: #### CVDTBH #### [facility] [address] [place] [address] Dr. Nathanael FreedmanGlobulin (S) [Mass/Vol]3.5 g/dLNormalThe [facility]bleComment on above:Performed By: #### CVDTBH #### [facility] [address] [place] [address] Dr. Nathanael FreedmanProtein [Mass/Vol]7.3 g/dLNormal6.4-8.2[facility] Comment on above:Performed By: #### CVDTBH #### [facility] [address] [place] [address] Dr. Nathanael FreedmanMYOGLOBINon 81-57-3306TBC71 ng/mLNormal9-82[facility] Comment on above:Performed By: #### CVDTBH #### [facility] [address] [place] [address] Dr. Nathanael FreedmanPROF CHEM 8 (BAS METB)on 99-58-8923Blqzs gap [Moles/Vol]13.5 mmol/LNormalMercer County Community HospitalComment on above:Performed By: #### CVDTBH #### [facility] [address] [place] [address] Dr. Nathanael FreedmanCalcium [Mass/Vol]8.9 mg/dLNormal8.5-10.1The [facility] Comment on above:Performed By: #### CVDTBH #### [facility] [address] [place] [address] Dr. Nathanael FreedmanChloride [Moles/Vol]100 mmol/EItbyof22-733ImhMercer County Community Hospital Comment on above:Performed By: #### CVDTBH #### [facility] [address] [place] [address] Dr. Nathanael FreedmanCO2 [Moles/Vol]26.0 mmol/UDbhdoe05.0-32.0The [facility] Comment on above:Performed By: #### CVDTBH #### [facility] [address] [address] [address] Nathanael FreedmanCreatinine [Mass/Vol]0.94 mg/dLNormal0.55-1.02The [facility]bleComment on above:Performed By: #### CVDTBH #### [facility] [address] [address] [address] Nathanael DawsonGFR-AF BANGLADESHI>60Normal>=60The [facility]bleComment on above:Performed By: #### CVDTBH #### [facility] [address] [place] [address] Dr. Nathanael DawsonGFR-NON AF BANGLADESHI>60Normal>=60The [facility]bleComment on above:Performed By: #### CVDTBH #### [facility] [address] [address] [address] Nathanael FreedmanGlucose [Mass/Vol]116 mg/dLCritically pltw40-144Tmi [facility]bleComment on above:Performed By: #### CVDTBH #### [facility] [address] [place] [address] Dr. Nathanael FreedmanPotassium [Moles/Vol]3.5 mmol/LNormal3.5-5.1[facility] Comment on above:Performed By: #### CVDTBH #### [facility] [address] [address] [address] Nathanael FreedmanSodium [Moles/Vol]136 mmol/OAjpkxw628-111Ehm [facility] Comment on above:Performed By: #### CVDTBH #### [facility] [address] [address] [address] Nathanael FreedmanUrea nitrogen [Mass/Vol]6.0 mg/dLCritically low7.0-18.0The [facility]bleComment on above:Performed By: #### CVDTBH #### [facility] [address] [place] [address] Dr. Yilan ChangUrea nitrogen/Creatinine [Mass ratio]6.4 mg/mgNoMansfield Hospital on above:Performed By: #### CVDTBH #### [facility] [address] [place] [address] Dr. Nathanael Delgadillo RATE WESTERGRENon 81-48-3032MVV RATE26 mm/hrCritically high <=20The [facility] on above:Performed By: #### INFLUAB #### [facility] [address] [place] [address] Dr. Nathanael FreedmanCovid-19 PCR ([facility])on 64-88-4277LSFB-CoV-2 (COVID-19) RNA KIRTI+probe Ql (Unsp spec)DetectedCritically abnormalNOT DETECTEDMedina Hospital on above:Result Comment: This test is not yet approved or cleared by the [place] FDA. When there are no FDA-approved or cleared tests available, and other criteria are met, FDA can make tests available under an emergency access mechanism called an Emergency Use Authorization (EUA). The EUA for this test is supported by the Acting Manager of Health and Human Service's declaration that circumstances exist to justify the emergency use of in vitro diagnostics for the detection and/or diagnosis of the virusthat causes COVID-19. This EUA will remain in effect for the duration of the COVID-19 declaration ju stifying emergency of IVDs, unless it is terminated or revoked by the FDA (after which the test mayno longer be used).Performed By: #### CVDTBH #### [facility] [address] [place] [address] Dr. Nathanael FreedmanINFLUENZA A AND B AGon 40-04-0714NWKZCKNRMVNXX [facility] on above:Result Comment: Negative for Flu A protein angiten. Infection due to Flu A cannot be ruled out. FluA angiten in the sample may be below the detection limit of the test.Performed By: #### INFLUAB #### [facility] [address] [place] [address] Dr. Nathanael FreedmanINFLUBNEGHSEE BELOWNormalThe [facility] HospitalComment on above: Result Comment: Negative for Flu B protein antigen. Infection due to Flu B cannot be ruled out. FluB antigen in the sample may be below the detection limit of the test.Performed By: #### INFLUAB #### [facility] [address] [place] [address] Dr. Nathanael Blackwood AGNegativeNormalNEGATIVE SEE COMMENTThe [facility] PrebleComment on above:Performed By: #### INFLUAB #### [facility] [address] [place] [address] Dr. Nathanael Wade AGNegativeNormalNEGATIVE SEE COMMENTMercer County Community HospitalComment on above:Performed By: #### INFLUAB #### [facility] [address] [place] [address] Dr. Nathanael FreedmanINTERNAL CONTROLSWithin Normal LimitsNormalWithin Normal Limits The [facility] PrebleComment on above:Performed By: #### INFLUAB #### [facility] [address] [place] [address] Dr. Nathanael Tidwell AUTO DIFFon 18-56-7593OOSP #0.1 103/ulNormal0.0-0.1[facility] HospitalComment on above:Performed By: #### CVDTBH #### [facility] [address] [place] [address] Dr. Nathanael FreedmanBasophils/100 WBC (Bld)0.5 %Normal0.2-2.0[facility] Comment on above:Performed By: #### CVDTBH #### [facility] [address] [place] [address] Dr. Nathanael Draper #0.2 103/ulNormal0.0-0.7The [facility] PrebleComment on above: Performed By: #### CVDTBH #### [facility] [address] [place] [address] Dr. Nathanael Dawsonosinophils/100 WBC (Bld)2.1 %Normal0.9-7.0The [facility] Comment on above:Performed By: #### CVDTBH #### [facility] [address] [place] [address] Dr. Nathanael Dawsonrythrocyte distribution width (RBC) [Ratio]12.4 %Zflnni48.0-15.0 The [facility] PrebleComment on above:Performed By: #### CVDTBH #### [facility] [address] [place] [address] Dr. Nathanael FreedmanHematocrit (Bld) [Volume fraction]39.4 %Jiirdd40.0-48.0The [facility] HospitalComment on above:Performed By: #### CVDTBH #### [facility] [address] [place] [address] Dr. Nathanael FreedmanHemoglobin (Bld) [Mass/Vol]13.0 g/dFOqgxyw27.0-16.0The [facility] PrebleComment on above:Performed By: #### CVDTBH #### [facility] [address] [place] [address] Dr. Nathanael Fairbanks #0.04 10e3/ulCritically high0.00-0.03The [facility] Comment on above:Performed By: #### CVDTBH #### [facility] [address] [place] [address] Dr. Nathanael Fairbanks %0.4 %Normal0.0-0.5The [facility] PrebleComment on above: Performed By: #### CVDTBH #### [facility] [address] [place] [address] Dr. Nathanael FigueroaH #3.2 103/ulNormal1.2-3.8The [facility] PrebleComment on above:Performed By: #### CVDTBH #### [facility] [address] [place] [address] Dr. Nathanael Figueroahocytes/100 WBC (Bld)29.6 %Xpmqeo45.5-60.0The [facility] PrebleComment on above:Performed By: #### CVDTBH #### [facility] [facility] [address] [place] [address] Dr. Nathanael GarzaUAL DIFF REQNONormalThe Paint Bank HospitalComment on above: Performed By: #### CVDTBH #### [facility] [address] [place] [address] Dr. Nathanael SmythH (RBC) [Entitic mass]28.5 gwNhment50.7-34.0The [facility]bleComment on above:Performed By: #### CVDTBH #### [facility] [address] [place] [address] Dr. Nathanael Smyth (RBC) [Mass/Vol]33.0 g/aOBjwqby43.9-35.2The [facility] HospitalComment on above:Performed By: #### CVDTBH #### [facility] [address] [place] [address] Dr. Nathanael Montalvo (RBC) [Entitic vol]86.4 gTZiveyl09.0-99.0The [facility] PrebleComment on above:Performed By: #### ERNESTOTBH #### [facility] [address] [place] [address] Dr. Nathanael Oliva #0.6 103/ulNormal0.3-0.8The [facility]bleComment on above:Performed By: #### CVDTBH #### [facility] [address] [place] [address] Dr. Nathanael Vallesocytes/100 WBC (Bld)5.9 %Normal1.7-12.0[facility] Comment on above:Performed By: #### CVDTBH #### [facility] [address] [place] [address] Dr. Nathanael Jones #6.7 103/ulCritically high1.4-6.5The [facility] Comment on above:Performed By: #### CVDTBH #### [facility] [address] [place] [address] Dr. Nathanael Serraophils/100 WBC (Bld)61.5 %Avtabt83.0-75.0[facility] HospitalComment on above:Performed By: #### CVDTBH #### [facility] [address] [place] [address] Dr. Nathanael Cruz mean volume (Bld) [Entitic vol]10.0 fLNormal9.5-13.5The [facility] PrebleComment on above:Performed By: #### CVDTBH #### [facility] [address] [place] [address] Dr. Nathanael FreedmanPLT282 103/ywJmlegq930-636Ifx [facility]bleComment on above: Performed By: #### CVDTBH #### [facility] [address] [place] [address] Dr. Nathanael FreedmanRBC4.56 106/ulNormal4.20-5.40The [facility]bleComment on above:Performed By: #### CVDTBH #### [facility] [address] [place] [address] Dr. Nathanael FreedmanWBC10.9 103/ulNormal4.0-11.0The [facility]bleComment on above:Performed By: #### CVDTBH #### [facility] [address] [place] [address] Dr. Nathanael FreedmanCRJavier 76-62-9704MPH9.7 mg/dLCritically high<=1.0The [facility] on above:Performed By: #### HSTROPN, CMP, CRP #### [facility] [address] [place] [address] Dr. Nathanael FreedmanCT HEAD WO CONon 68-78-8966MJ HEAD WO CONEXAMINATION: CT HEAD WO CON HISTORY: WEAKNESS COMPARISON: [...] Electronically authenticated by: January SILVESTRE Date: 2022-02-26 23:36NormalThe [facility]bleLACTATE/LACTIC ACIDon 50-08-2067Wicexgl [Moles/Vol]0.8 mmol/L Normal0.4-1.9The [facility] PrebleComment on above:Performed By: #### INFLUAB #### [facility] [address] [address] [address] Nathanael RobertsF 14(COMP METB)on 24-62-3872Airrlce [Mass/Vol]4.0 g/dLNormal 3.4-5.0The [facility]bleComment on above:Performed By: #### HSTROPN, CMP, CRP #### [facility] [address] [address] [address] Nathanael FreedmanAlbumin/Globulin [Mass ratio]1.0 {ratio}NormalThe [facility]bleComment on above:Performed By: #### HSTROPN, CMP, CRP #### [facility] [address] [address] [address] Nathanael Nicole [Catalytic activity/Vol]68 U/MSjpcbm96-293Rfg Genesis Hospitalment on above:Performed By: #### HSTROPN, CMP, CRP #### [facility] [address] [place] [address] Dr. Nathanael Carcamo [Catalytic activity/Vol]28 U/XWnxqfa09-85Bko [facility]bleComment on above:Performed By: #### HSTROPN, CMP, CRP #### [facility] [address] [place] [address] Dr. Nathanael Devlin gap [Moles/Vol]10.8 mmol/LNormalThe [facility] on above:Performed By: #### HSTROPN, CMP, CRP #### [facility] [address] [place] [address] Dr. Nathanael Ortiz [Catalytic activity/Vol]13 U/LCritically ode40-50Cvk [facility]bleComment on above:Performed By: #### HSTROPN, CMP, CRP #### [facility] [address] [address] [address] Nathanael FreemdanBilirubin [Mass/Vol]0.4 mg/dLNormal0.2-1.0The [facility] Comment on above:Performed By: #### HSTROPN, CMP, CRP #### [facility] [address] [address] [address] Nathanael FreedmanCalcium [Mass/Vol]9.4 mg/dLNormal8.5-10.1The [facility] Comment on above:Performed By: #### HSTROPN, CMP, CRP #### [facility] [address] [place] [address] Dr. Nathanael FreedmanChloride [Moles/Vol]103 mmol/DJorqtz30-862Miu [facility] Comment on above:Performed By: #### HSTROPN, CMP, CRP #### [facility] [address] [place] [address] Dr. Nathanael FreedmanCO2 [Moles/Vol]27.7 mmol/OJkfsoa05.0-32.0The [facility] Comment on above:Performed By: #### HSTROPN, CMP, CRP #### [facility] [address] [place] [address] Dr. Nathanael FreedmanCreatinine [Mass/Vol]0.96 mg/dLNormal0.55-1.02The [facility]bleComment on above:Performed By: #### HSTROPN, CMP, CRP #### [facility] [address] [place] [address] Dr. Nathanael DawsonGFR-AF BANGLADESHI>60Normal>=60The [facility]bleComment on above:Performed By: #### HSTROPN, CMP, CRP #### [facility] [address] [place] [address] Dr. Nathanael DawsonGFR-NON AF BANGLADESHI>60Normal>=60The [facility]bleComment on above:Performed By: #### HSTROPN, CMP, CRP #### [facility] [address] [place] [address] Dr. Yilan ChangGlobulin (S) [Mass/Vol]3.9 g/dLNormalThe [facility]bleComment on above:Performed By: #### HSTROPN, CMP, CRP #### [facility] [address] [address] [address] Nathanael FreedmanGlucose [Mass/Vol]124 mg/dLCritically dhqf11-061Isj [facility]bleComment on above:Performed By: #### HSTROPN, CMP, CRP #### [facility] [address] [address] [address] Nathanael FreedmanPotassium [Moles/Vol]3.5 mmol/LNormal3.5-5.1The [facility] Comment on above:Performed By: #### HSTROPN, CMP, CRP #### [facility] [address] [address] [address] Nathanael FreedmanProtein [Mass/Vol]7.9 g/dLNormal6.4-8.2The [facility] Comment on above:Performed By: #### HSTROPN, CMP, CRP #### [facility] [address] [address] [address] Nathanael FreedmanSodium [Moles/Vol]138 mmol/MYnawcn383-493Njk [facility] Comment on above:Performed By: #### HSTROPN, CMP, CRP #### [facility] [address] [address] [address] Nathanael FreedmanUrea nitrogen [Mass/Vol]9.0 mg/dLNormal7.0-18.0The [facility]bleComment on above:Performed By: #### HSTROPN, CMP, CRP #### [facility] [address] [address] [address] Nathanael FreedmanUrea nitrogen/Creatinine [Mass ratio]9.4 mg/mgNoOhioHealth Hardin Memorial HospitalComment on above:Performed By: #### HSTROPN, CMP, CRP #### [facility] [address] [place] [address] Dr. Nathanael Delgadillo RATE [facility]STH[facility] CROSS HOSPITALRENon 84-52-0077MGD RATE27 mm/hrCritically high <=20The [facility]bleComment on above:Performed By: #### INFLUAB #### [facility] [address] [place], [place] [address] Dr. Nathanael Moore, HIGH SENSITIVITYon 99-52-1132VDHXXK9.9 pg/mLCritically low4.0-51.3The [facility]bleComment on above:Result Comment: CUT-OFF POINTS HAVE BEEN ESTABLISHED BASED ON THE FOURTH UNIVERSAL DEFINITIONS OF MYOCARDIAL INFARCTION. THE UPPER REFERENCE LIMIT (URL) OF TROPONIN, DEFINED THE 99TH PERCENTILE OF cTnI DISTRIBUTION IN A REFERENCE POPULATION, HAS BEEN CONFIRMED THE DECISION THRESHOLD FOR DC DIAGNOSIS.Performed By: #### HSTROPN, CMP, CRP #### [facility] [id number] Nathanael FreedmanXR Chest 2 Views*on 68-15-6292LS Chest 2 Views*HISTORY: Right- sided chest pain. Recent pleural effusion. COMPARISON: Chest x-rays 11/05/2018 TECHNIQUE: Frontal and lateral views of the chest FINDINGS: The cardiomediastinal silhouette is within normal limits. No pneumothorax, pleural effusion, or consolidation. No acute osseous abnormality. IMPRESSION: No radiographic evidence of acute intrathoracic process. Report reported and signed by Elias Melvin on 02/12/2022 1355NormalNorthern Baptist [facility] SpecialistUrine 10 SGon 94-03-4777Bgctjdo DL <= 20 mg/L (U) [Mass/Vol]NegativeFort [place] Lumiy Other pH (U)6.0 [pH][place] [facility] Other Urine 10 SGNegativeNokansas city va medical center Lumiy Other Urine 10 SG1.025N[facility] Lumiy Other Urine 10 SG0.2Nwestern [facility] Lumiy Other CELIAC DISEASE ABSon 05-40-6901EZTV AB IGANegative NormalNegativeSaint Northwest Medical CenterComment on above:Performed By: #### LCELIACABS ####[facility] [address] [place] [address]OBWBJOT AB IGA6 unitsNormal0-19[facility] - Rock SpringsComment on above:Result Comment: Negative 0 - 19 Weak Positive 20 - 30 Moderate to Strong Positive >30Performed By: #### LCELIACABS ####[facility] [address] [place] [address] GLIADIN AB IGG3 unitsNormal0-19[facility] - Rock SpringsComment on above:Result Comment: Negative 0 - 19 Weak Positive 20 - 30 Moderate to Strong Positive >30 Performed By: #### LCELIACABS ####[facility] [address]WLZE[address] [place] [address]IaM607 mg/mXZyyurc28-047KfrcxSweetwater County Memorial Hospital - Rock SpringsComment on above: Result Comment: Performed At: CBLabCKessler Institute for Rehabilitation[address] [place], [place] [id number] [id number] By: #### LCELIACABS ####[facility] HVGMGND[address] [place] [address]pFQ IGA<3Itcczj3-0GzzihAtchison HospitalComment on above:Result Comment: Negative 0 - 3 Weak Positive 4 - 10 Positive >10 Tissue Transglutaminase (tTG) has been identified as the endomysial antigen. Studies have demonstr- ated that endomysial IgA antibodies have over 99% specificity for gluten sensitive enteropathy.Performed By: #### LCELIACABS ####[facility] OF NFPYQUJ[address] [place] [address]sQG IGG<2 Normal0-5SAtchison HospitalComment on above:Result Comment: Negative 0 - 5 Weak Positive 6 - 9 Positive >9Performed By: #### LCELIACABS ####[facility] OF ZBTTYXO[address] [place] [address]N-FXKKYOOF PROTEINon 09-10-2017C reactive protein (CRP)15.90 mg/LHEvanston Regional HospitalComment on above: Order Comment: Is patient fasting? NOResult Comment: Cardiovascular CRP Risk Stratification Low < 1.00 mg/L Average 1.00 - 3.00 mg/L High > 3.00 mg/LAbsence of acute inflammation < 3.0 mg/LAcute inflammation >10.0 mg/LPerformed By: #### LCMP, LGFRP, LCARDIOCRP, [id number] ####[address] [address]CTN AUTOon 70-22-7630Axndmonmynx distribution width Auto Ratio (RBC)12.7 %Pdnony29.5-14.5SAtchison HospitalComment on above: Performed By: #### JESSICA, LWSR ####[facility] Ajw[address]jics[address] [place] [address]Isactlhpvfsj (RBC)4.61 10*6/uLNormal3.5-5.5SAtchison HospitalComment on above:Performed By: #### JESSICA, LWSR ####[address] [address]Plfrtzzrlr (HCT)39.2 %Normal 36.0-48.0[facility] - Rock SpringsComment on above:Performed By: #### JESSICA, LWSR ####[facility] Qjc[address] [place] [address]Zyizahteyr mass conc (Bld)13.5 g/wUKwoudd53.0-15.0[facility] - Rock SpringsComment on above: Performed By: #### JESSICA, LWSR ####[address] [address]TAA81.3 hrMdyhff50.4-34.6[facility] - Rock SpringsComment on above:Performed By: #### JESSICA, LWSR ####[facility] Xwun[address]onc[address] [place] [address]BLCK mass conc (RBC)34.4 g/tXLnviua46.0-36.0[facility] - Rock SpringsComment on above:Performed By: #### JESSICA, LWSR ####[address] [address]GIQ01.0 aKWhinpr27.0-98.0 [facility] - Rock SpringsComment on above:Performed By: #### JESSICA, LWSR ####[facility] C[address] [place] [address]Lrchpucu mean volume (PMV) 10.1 fLNormal8.4-11.9[facility] - Rock SpringsComment on above:Performed By: #### ALECIABC, LWSR ####[facility] [address] [place] [address] Loqcftmyk100 10*3/sQCblurb470-663BtfgkSweetwater County Memorial Hospital - Rock SpringsComment on above: Performed By: #### JESSICA, LWSR ####[facility] Pdzpfecrof[address] [place], [place] [address]QPF (Leukocytes)10.7 10*3/uLNormal3.9-11.0[facility] - Rock SpringsComment on above:Performed By: #### JESSICA, LWSR ####[facility] Tiv[address]ff[address] [place] [address]URZR METABOLIC PANELon 34-25-8251Jggglzl aminotransferase (ALT)14 U/LNormal7-45[facility] - Rock SpringsComment on above:Order Comment: Is patient fasting? NOPerformed By: #### LCMP, LGFRP, LCARDIOCRP, [id number] ####[facility] Joulpvvmim[address] [place], [place] [address]Icrkudh1.3 g/dLNormal3.4-5.0[facility] Comment on above:Order Comment: Is patient fasting? NOPerformed By: #### LCMP, LGFRP, LCARDIOCRP, ZYQP9SKCND ####[facility] Sbzxtsvrvd[address] [place], [place] [address]TLH PHOS TOTAL49 U/WGktffg33-564ZwhnkSweetwater County Memorial Hospital - Rock SpringsComment on above:Order Comment: Is patient fasting? NOPerformed By: #### LCMP, LGFRP, LCARDIOCRP, [id number] ####[facility] Kgnugvfjkl[address]58 [place], [place] [address]Gbpynuvqg aminotransferase (AST)14 U/PYamajq08-11SugygSweetwater County Memorial Hospital - Rock Springs Comment on above:Order Comment: Is patient fasting? NOPerformed By: #### LCMP, LGFRP, LCARDIOCRP, [id number] ####[facility] [address] [place] [address]WFTL TOTAL0.4 mg/dLNormal0-1.2SAtchison HospitalComment on above:Order Comment: Is patient fasting? NOPerformed By: #### LCMP, LGFRP, LCARDIOCRP, [id number] ####[facility] Zvbaqzacej[address] [place], [place] [address]Mshwsdi3.6 mg/dLNormal8.6-10.3SAtchison HospitalComharbor oaks hospital on above: Order Comment: Is patient fasting? NOPerformed By: #### LCMP, LGFRP, LCARDIOCRP, [id number] ####[facility] Qdweygvmgd[address] [place], [place] [address]Ilnzivdn 103 mmol/JHylflx76-440FsfstSweetwater County Memorial Hospital - Rock SpringsComharbor oaks hospital on above:Order Comment: Is patient fasting? NOPerformed By: #### LCMP, LGFRP, LCARDIOCRP, [id number] ####[facility] [address] [place] [address]OU149 mmol/LNormal 21-32[facility] Rock SpringsComharbor oaks hospital on above:Order Comment: Is patient fasting? NOPerformed By: #### LCMP, LGFRP, LCARDIOCRP, [id number] ####[facility] Tikuglwuqq[address] [place], [place] [address]Bvxzokwkdv0.70 mg/dLNormal 0.5-1.05[facility] Rock SpringsComharbor oaks hospital on above:Order Comment: Is patient fasting? NOPerformed By: #### LCMP, LGFRP, LCARDIOCRP, NTPU3HSVUS ####[facility] Uetqvxpqhf[address]40 [place], [place] [address]Qnahicn mass cjft058 mg/dL Mdbt51-12LomblSweetwater County Memorial Hospital - Rock SpringsComharbor oaks hospital on above:Order Comment: Is patient fasting? NOPerformed By: #### LCMP, LGFRP, LCARDIOCRP, OEOD5VOBUX ####[facility] Pgnfskxbmk[address] [place], [place] [address]Ieajgkgsx molar conc3.8 mmol/LNormal3.5-5.3SAtchison HospitalComharbor oaks hospital on above:Order Comment: Is patient fasting? NOPerformed By: #### LCMP, LGFRP, LCARDIOCRP, [id number] ####[facility] Mkhsuvlwwv[address] [place], [place] [address]Dqxmhpv4.1 g/dL Normal6.4-8.2SAtchison HospitalComharbor oaks hospital on above:Order Comment: Is patient fasting? NOPerformed By: #### LCMP, LGFRP, LCARDIOCRP, WNUX5YHDMA ####[facility] Hmaygpwbao[address] [place], [place] [address]Ktvxub265 mmol/GNznqfl682-592 [facility] SpringsComharbor oaks hospital on above:Order Comment: Is patient fasting? NO Performed By: #### LCMP, LGFRP, LCARDIOCRP, [id number] ####[facility] Lkjewynitb[address] [place], [place] [address]Bfhk nitrogen8 mg/dLNormal6-23[facility] SpringsComharbor oaks hospital on above:Order Comment: Is patient fasting? NOPerformed By: #### LCMP, LGFRP, LCARDIOCRP, SRMP9GFUPC ####[facility] I[address] [place] [address]YOHQLSPAGN FILTRATION RATE ESTon 26-83-3268cQVK (non-black)mL/min/{1.73_m2}Normal> 60[facility] SpringsComharbor oaks hospital on above: Order Comment: Is patient fasting? NOPerformed By: #### LCMP, LGFRP, LCARDIOCRP, MSPC4SVZOQ ####[facility] Fpscmtzvro[address] [place], [place] [address]QF AMER> 90Normal> 60[facility] SpringsComharbor oaks hospital on above:Order Comment: Is patient fasting? NOResult Comment: Effective 03/01/15:CKD-EPI equation / based on IDMS traceable creatinine.Continue touse the CREAT CLR-DOSE (Cockgroft-Gault)value for determining medication dose.Performed By: #### LCMP, LGFRP, LCARDIOCRP, [id number] ####[facility] [address]qtlphsx[address] [place], [place] [address]MKW RATE MANUALon 04-13-6360UUM/MOD26 mm/hrHigh0-20Suofl [facility] hospital [facility] Medical CenterComment on above:Performed By: #### LCBC, LWSR ####[facility] Pcxcbhqhyc[address] [place], [place] [address]SWS (3RDGEN)on 09-10-2017 Thyroid stimulating hormone (TSH)1.28 m[IU]/LNormal0.44-3.98Saint Northwest Medical CenterComment on above:Order Comment: Is patient fasting? NOPerformed By: #### LCMP, LGFRP, LCARDIOCRP, [id number] ####[facility] Knkfcgtuyz[address] [place] [address] Vital Signs Date TimeVital SignValuePerforming PgwjlglcmLhsdbfwy37-36-2558 16:15-0400Body noprio553.32 cmMicheal Handys DO Work Phone: [phone]12[facility]09-25-2025 16:15-0400 Body mass index (BMI) [Ratio]31.9 kg/u5Ocsra Handys DO Work Phone: [facility]09-25-2025 16:15-0400 Body oslpjl74.39 kgMicheal Handys DO Work Phone: [facility]09-25-2025 16:15-0400 Diastolic blood yyoyswrf93 mm[Hg]Micheal Murrells DO Work Phone: [facility]09-25-2025 16:15-0400 Heart rate77 /minJemflavio Murrells DO Work Phone: [facility]09-25-2025 16:15-0400 Respiratory rate16 /minJemflavio Murrells DO Work Phone: [facility]09-25-2025 16:15-0400 SaO2% (BldA) [Mass fraction]94 %Micheal Murrells DO Work Phone: [facility]09-25-2025 16:15-0400 Systolic blood uidtspgb827 mm[Hg]Micheal Murrells DO Work Phone: [facility]09-08-2025 14:01-0400 Body mass index (BMI) [Ratio]34.51 kg/k4EwtbbuoYamila Curtis UNDER[employer]ER Work Phone: [facility] CenterEdlkachgnz49-82-9930 14:01-0400Body temperature 97.81 [degF]Yamila Curtis [employer] Work Phone: [phone]-2343[facility] CenterLdlfhkebwk11-71-2728 14:01-0400Body ergzes34.2 kg Yamila Curtis [employer] Work Phone: [phone] [place], [place] [address]Tvfindqdno47-96-3422 14:01-0400Diastolic blood mm[Hg]Yamila Curtis [employer] Work Phone: [phone] [place], [place] [address]Fmgzpnxcfn00-43-3988 14:01-0400Heart rate88 /min Yamila Curtis [employer] Work Phone: [phone]-4055[facility] CenterXhzcnwdrkv80-53-9445 14:01-7135DfM4% (BldA) [Mass fraction]97 %Yamila Curtis [employer] Work Phone: [phone]-8565[facility] CenterQbmzmfpczt88-87-1079 14:01-0400Systolic blood sajcgdzo733 mm[Hg]Yamila Curtis [employer] Work Phone: [phone] [place], [place] [address]Kmetwfimoq30-03-0544 10:41-0400Body .6 Chris Lopez MD Work Phone: [facility] CenterEnkivvwkcu54-21-5150 10:41-0400Body mass index (BMI) [Ratio]33.9 kg/s6PfcfowFran Lopez MD Work Phone: [phone] CenterBlefjacbsg35-62-4641 10:41-0400Body ogdmuz34.84 kgFran Lopez MD Work Phone: [phone] CenterJcnmuqcyje47-28-2850 10:43-0400Body kwgbeg669.6 Chris Lopez MD Work Phone: [phone] CenterOhcmnvwwna56-15-5460 10:43-0400Body mass index (BMI) [Ratio]34.51 kg/b3OthuzcFran Lopez MD Work Phone: [phone] CenterRljmwvklvh32-52-9386 10:43-0400Body .2 kg Fran Lopez MD Work Phone: [facility] CenterSeblkedtrt46-81-7069 10:38-0400Body pgyfvs350.6 cmEmichelle Lopez MD Work Phone: [facility] CenterDcedqjsobx40-21-6838 10:38-0400Body mass index (BMI) [Ratio]34.51 kg/a8HtwyxuFran Lopez MD Work Phone: [facility] CenterKxqraumedv84-97-4981 10:38-0400Body .2 kg Fran Lopez MD Work Phone: [facility] CenterIuofllxxom25-43-4154 14:22-0400Body .32 cmMicheal Dash DO Work Phone: [phone]04-24-2025 14:22-0400 Body mass index (BMI) [Ratio]34 kg/b5Yeweh Handys DO Work Phone: [phone]04-24-2025 14:22-0400 Body .93 kgJemflavio Murrells DO Work Phone: [phone] [place], [place] 7384004-24-2025 14:22-0400 Diastolic blood wfdteigz75 mm[Hg]Micheal Bowling DO Work Phone: [phone] [place], [place] 7384004-24-2025 14:22-0400 Heart rate92 /minMicheal Murrells DO Work Phone: [phone]04-24-2025 14:22-0400 SaO2% (BldA) [Mass fraction]97 %Micheal Murrells DO Work Phone: [phone]04-24-2025 14:22-0400 Systolic blood nijqrjja629 mm[Hg]Micheal Murrells DO Work Phone: [phone]77[facility]04-02-2025 07:38-0400 Diastolic blood pimdrnpt28 mm[Hg]Micheal Murrells DO Work Phone: [phone]04-02-2025 07:38-0400 Heart rate96 /minMicheal Bowling DO Work Phone: [facility]04-02-2025 07:38-0400 Respiratory rate16 /minMicheal Bowling DO Work Phone: [facility]04-02-2025 07:38-0400 SaO2% (BldA) [Mass fraction]99 %Micheal Bowling DO Work Phone: [facility]04-02-2025 07:38-0400 Systolic blood eqenrkbn697 mm[Hg]Micheal Bowling DO Work Phone: [facility]03-30-2025 14:03-0400 Heart rate95 /minRickie Bergeron [address] [place], [place] 5612703-30-2025 14:03-0400 Respiratory rate20 /minRickie Bergeron [address] [place], [place] 5612703-30-2025 13:59-0400Heart rate96 /minRickie Bergeron [address] [place], [place] 5612703-30-2025 13:59-0400 Respiratory rate20 /minRickie Rubio [address] [place], [place] 5612703-30-2025 13:02-0400Body pdnfavucqps95.7 [degF]Rickie Bergeron [address] [place], [place] 5612703-30-2025 13:02-0400 Diastolic blood oketzwou29 mm[Hg]Rickie Bergeron [address] [place], [place] 5612703-30-2025 13:02-0400Heart cedu954 /minRickie Bergeron [address] [place], [place] 5612703-30-2025 13:02-0400 Respiratory rate17 /minRickie Bergeron [address] [place], [place] 5612703-30-2025 13:02-0807OzR7% (BldA) [Mass fraction]97 %Rickie Bergeron [facility]03-30-2025 13:02-0400 Systolic blood gykpltfc758 mm[Hg]Rickie Bergeron [facility]03-13-2025 13:54-0400Body hulkof349.86 cmMicheal Murrells DO Work Phone: [facility]03-13-2025 13:54-0400 Body mass index (BMI) [Ratio]32.3 kg/f1Hisum Kuns DO Work Phone: [facility]03-13-2025 13:54-0400 Body nryanv51.57 kgBryan Kuns DO Work Phone: [facility]03-13-2025 13:54-0400 Diastolic blood rbmvlvvu43 mm[Hg]Micheal Handys DO Work Phone: [facility]03-13-2025 13:54-0400 Heart rate91 /minJeman Kuns DO Work Phone: [phone]03-13-2025 13:54-0400 SaO2% (BldA) [Mass fraction]97 %Micheal Handys DO Work Phone: [facility]03-13-2025 13:54-0400 Systolic blood zvggbazx458 mm[Hg]Micheal Kuns DO Work Phone: [facility]02-06-2025 13:21-0500 Body eqqlsz045.86 cmJeman Kuns DO Work Phone: [facility]02-06-2025 13:21-0500 Body mass index (BMI) [Ratio]32.5 kg/o5Zmexv Kuns DO Work Phone: [facility]02-06-2025 13:21-0500 Body lwenvx21.02 kgBryan Kuns DO Work Phone: [facility]02-06-2025 13:21-0500 Diastolic blood mm[Hg]Micheal Bowling DO Work Phone: [facility]02-06-2025 13:21-0500 Heart rate86 /Dale Bowling DO Work Phone: [facility]02-06-2025 13:21-0500 SaO2% (BldA) [Mass fraction]98 %Micheal Bowling DO Work Phone: [facility]02-06-2025 13:21-0500 Systolic blood xpioigrs341 mm[Hg]Micheal Bowling DO Work Phone: [facility]01-16-2025 13:47-0500 Body thtabv231.86 cm[facility]01-[facility]2025 13:47-0500Body mass index (BMI) [Ratio]32.9 kg/o3UjfjnxmfsNorwalk [facility] Hospital01-16-2025 13:47-0500Body nddxpo46.93 kg[facility]01-16-2025 13:47-0500Diastolic blood dnapcawl47 mm[Hg][facility] 10-21-2024 13:47-0500Heart rate81 /[facility] 10-21-2024 13:47-0500Respiratory rate18 /[facility] 10-21-2024 13:47-4124IbZ1% (BldA) [Mass fraction]97 %[facility]01-16-2025 13:47-0500Systolic blood wjuaycjw277 mm[Hg][facility]2024 16:12-0500Body gyvbgo591.6 cmMaycol Clark DO Work Phone: [id number] 16:12-0500Body mass index (BMI) [Ratio]33.28 kg/t3LvejdbbMaycol Clark DO Work Phone: [facility] CenterGlzwdrfomc65-11-6088 16:12-0500Body cyrsrc20.48 kgWiyolanda Clark DO Work Phone: [facility] CenterJifnzugfcs79-07-1737 16:12-0500Diastolic blood mvlympri48 mm[Hg]Maycol Clark DO Work Phone: [facility] CenterKhtavjcyjm25-22-9623 16:12-0500Systolic blood unlnmkho149 mm[Hg]Maycol Clark DO Work Phone: [facility] CenterXwgcirdwnp45-88-3303 14:25-0500Body lpywdp664.86 cm[facility]11-21-2024 14:25-0500Body mass index (BMI) [Ratio]33.9 kg/k7HmeqzdpdbNorwalk Memorial Hospital11-21-2024 14:25-0500Body ythfci31.2 kg[facility]11-21-2024 14:25-0500Diastolic blood mm[Hg][facility]11-21-2024 14:25-0500 Heart rate85 /[facility]11-21-2024 14:25-0500 Respiratory rate16 /[facility]11-21-2024 14:25-0500 SaO2% (BldA) [Mass fraction]96 %[facility]11-21-2024 14:25-0500Systolic blood spcrwoom542 mm[Hg][facility] 07-26-2024 17:45-0400Body mass index (BMI) [Ratio]33.2 kg/i8Lgpepf Workman PA Work Phone: [facility] CenterYjdkcsedkl79-96-6320 17:45-0400Body jgkyij11.3 kg Summer Workman PA Work Phone: [facility] CenterWonvztjznf60-69-4458 15:32-0400Body lhwjop700.86 cmDO Micheal Bowling Work Phone: [facility]07-23-2024 15:32-0400 Body mass index (BMI) [Ratio]32.3 kg/m2DO Micheal Bowling Work Phone: [facility]07-23-2024 15:32-0400 Body onkxhq44.57 kgDO Micheal Bowling Work Phone: [facility]07-23-2024 15:32-0400 Diastolic blood wsxonmvh62 mm[Hg]DO Micheal Bowling Work Phone: [facility]07-23-2024 15:32-0400 Heart rate82 /minDO Micheal Bowling Work Phone: [facility]07-23-2024 15:32-0400 Respiratory rate18 /FernandezO Micheal Bowling Work Phone: [facility]07-23-2024 15:32-0400 SaO2% (BldA) [Mass fraction]98 %DO Micheal Bowling Work Phone: [facility]07-23-2024 15:32-0400 Systolic blood uqpuzjdn042 mm[Hg]DO Micheal Bowling Work Phone: [facility]05-28-2024 15:10-0400 Body .86 cmNor[facility]05-28-2024 15:10-0400Body mass index (BMI) [Ratio]31.8 kg/j9WwhjsggjpNorwalk Memorial Hospital05-28-2024 15:10-0400Body xadvpz57.66 kgNor[facility]05-28-2024 15:10-0400Diastolic blood mdrofbvh26 mm[Hg][facility] 03-02-2024 15:10-0400Heart rate94 /[facility] 03-02-2024 15:10-0400Respiratory rate16 /[facility] 03-02-2024 15:10-8328CeM9% (BldA) [Mass fraction]98 %[facility]05-28-2024 15:10-0400Systolic blood izyahpgf901 mm[Hg][facility]04-24-2024 09:51-0400Body .86 cmNor[facility]04-24-2024 09:51-0400Body mass index (BMI) [Ratio]32.5 kg/m2 [facility]04-24-2024 09:51-0400Body .02 kg [facility]04-24-2024 09:51-0400Diastolic blood doaaiisl41 mm[Hg][facility]04-24-2024 09:51-0400Heart rate84 /min [facility]04-24-2024 09:51-0400Respiratory rate16 /min [facility]04-24-2024 09:51-6401QaP7% (BldA) [Mass fraction]98 %[facility]04-24-2024 09:51-0400Systolic blood qriejvtu203 mm[Hg][facility]03-22-2024 14:45-0400 Diastolic blood ddmzkazd07 mm[Hg]Aly Castellanos [facility]03-22-2024 14:45-0400Heart gihu707 /minAly Castellanos [facility]03-22-2024 14:45-2968NoI2% (BldA) [Mass fraction]97 %Aly Castellanos [facility]03-22-2024 14:45-0400 Systolic blood haunghwv242 mm[Hg]Aly Castellanos [facility]02-23-2024 11:26-0500Body .86 cmDO Micheal Bowling Work Phone: [facility]02-23-2024 11:26-0500 Body mass index (BMI) [Ratio]30.9 kg/m2DO Micheal Bowling Work Phone: [facility]02-23-2024 11:26-0500 Body elgbxb78.39 kgDO Micheal Bowling Work Phone: [facility]02-23-2024 11:26-0500 Diastolic blood wgqgisja69 mm[Hg]DO Micheal Bowling Work Phone: [facility]02-23-2024 11:26-0500 Heart rate87 /Olivia Bowling Work Phone: [facility]02-23-2024 11:26-0500 Respiratory rate16 /Olivia Bowling Work Phone: [facility]02-23-2024 11:26-0500 SaO2% (BldA) [Mass fraction]97 %DO iMcheal Bowling Work Phone: [facility]02-23-2024 11:26-0500 Systolic blood wynynrjm729 mm[Hg]DO Micheal Bowling Work Phone: [facility]01-25-2024 16:12-0500 Blood Pressure LocationAly Jasmin [facility]01-25-2024 16:12-0500 Diastolic blood xstxmujf40 mm[Hg]Aly Jasmin [facility]01-25-2024 16:12-0500Heart rate80 /minAly Castellanos [facility]01-25-2024 16:12-1009PoD2% (BldA) [Mass fraction]97 %Aly Jasmin [facility]01-25-2024 16:12-0500 Systolic blood crewnzlf802 mm[Hg]Aly Jasmin [facility]01-04-2024 15:45-0500Body hvmbah320.86 cmJemflavio Dash Other [facility]01-04-2024 15:45-0500 Body mass index (BMI) [Ratio]31.71 kg/i2YnrfrMicheal Bowling Other [place] [facility] Other [id number] 15:45-0500Body vbrlyv51.22 kgBryflavio Bowling Other [facility] Other 01-04-2024 15:45-0500Body nxtqol17.21 kgDO Micheal Bowling Work Phone: [facility]01-04-2024 15:45-0500 Diastolic blood vkzmewoj29 mm[Hg]Micheal Bowling Other [facility]01-04-2024 15:45-0500 Respiratory rate16 /minJemflavio [employer] Other [facility] Other [id number] 15:45-6657YgB6% (BldA) [Mass fraction]99 % Micheal Bowling Other [facility] Other [id number] 15:45-0500Systolic blood uvrkiabp235 mm[Hg] Micheal Bowling Other [facility]12-01-2023 09:45-0500 Body umzdvf680.86 cmMicheal Dash Other [facility]12-01-2023 09:45-0500 Body mass index (BMI) [Ratio]30.54 kg/f8DekkmMicheal Bowling Other [facility] Other [id number] 09:45-0500Body aigmis51.58 kgMicheal Bowling Other [facility]12-01-2023 09:45-0500 Diastolic blood ughtwwuo14 mm[Hg]Micheal Bowling Other [facility]12-01-2023 09:45-0500 Respiratory rate18 /minMicheal Murrells Other [facility] Other [id number] 09:45-3451UhP5% (BldA) [Mass fraction]97 % Micheal Bowling Other [facility] Other 12-01-2023 09:45-0500Systolic blood lybttios005 mm[Hg] Micheal Bowling Other [facility]10-19-2023 14:45-0400 Body vmzyic580.86 cmMicheal Bowling Other [facility] Other 10-19-2023 14:45-0400Body mass index (BMI) [Ratio] 29.69 kg/a7BlqevMicheal Bowling Other [facility] Other 10-19-2023 14:45-0400Body .68 kgMicheal Bowling Other [facility] Other 10-19-2023 14:45-0400Diastolic blood ijvzeonn35 mm[Hg] Micheal Bowling Other [facility] Other 10-19-2023 14:45-0400Respiratory rate18 /minMicheal Bowling Other [facility] Other 10-19-2023 14:45-4141MaO6% (BldA) [Mass fraction]99 % Micheal Bowling Other [facility] Other 10-19-2023 14:45-0400Systolic blood kmplsqgo376 mm[Hg] Micheal Bowling Other [facility] Other 09-11-2023 08:30-0400Body icueyw408.86 cmMicheal Bowling Other [phone] Other 09-11-2023 08:30-0400Body mass index (BMI) [Ratio] 29.49 kg/s5Iozlf [employer] Other [facility] Other 09-11-2023 08:30-0400Body pdpuxd49.23 kgJemflavio [employer] Other [facility] Other 09-11-2023 08:30-0400Diastolic blood mgbluddv06 mm[Hg] Micheal Bowling Other [facility] Other 09-11-2023 08:30-0400Respiratory rate18 /minBryflavio Bowling Other [facility] Other 09-11-2023 08:30-6791MvS7% (BldA) [Mass fraction]98 % Micheal Bowling Other [facility] Other 09-11-2023 08:30-0400Systolic blood zgpiqmwg231 mm[Hg] Micheal Bowling Other [facility] Other 05-05-2023 10:30-0400Body sepahg047.86 cmMicheal Bowling Other [facility] Other 05-05-2023 10:30-0400Body mass index (BMI) [Ratio]30.7 kg/q8TbveoMicheal Bowling Other [facility] Other 05-05-2023 10:30-0400Body eqaxbf82.95 kgMicheal Bowling Other [facility] Other 05-05-2023 10:30-0400Diastolic blood ewxmhweq67 mm[Hg] [facility] Other 05-05-2023 10:30-0400Respiratory rate16 /minMicheal Bowling [facility] Other 05-05-2023 10:30-2746BgB9% (BldA) [Mass fraction]94 % [facility] Other 05-05-2023 10:30-0400Systolic blood lkkymfqu184 mm[Hg] [facility]al [facility] Other 05-02-2023 20:36-0400Diastolic blood tntmsbuu90 mm[Hg] Kaylinn Dokken [address]05-02-2023 20:36-0400Heart rate72 /minKaylinn Dokken [address]05-02-2023 20:36-0400Mean blood mm[Hg]Kaylinn Dokken [address] [place], [place] 5612705-02-2023 20:36-0400 Respiratory rate18 /minKaylinn Dokken [address] [place], [place] 5612705-02-2023 20:36-1270SjI5% (BldA) [Mass fraction]96 %Kaylinn Dokken [address] [place], [place] 5612705-02-2023 20:36-0400 Systolic blood hgegmrrx220 mm[Hg]Kaylinn Dokken [address] [place], [place] 5612705-02-2023 20:12-0400 Diastolic blood plojmbuo163 mm[Hg]Kaylinn Dokken [address] [place], [place] [id number] 20:12-0400Heart rate78 /minKaylinn Dokken [address] [place], [place] [id number] 20:12-0400Mean blood twjhjtry823 mm[Hg]Kaylinn Dokken [address] [place], [place] [id number] 20:12-1970FsM3% (BldA) [Mass fraction]99 %Kaylinn Dokken [address] [place], [place] [id number] 20:12-0400 Systolic blood vmllofel292 mm[Hg]Kaylinn Dokken [address] [place], [place] [id number] 20:00-0400 Hourly RoundingKaylinn Dokken [address] [place], [place] [id number] 20:00-0400 Promise to ReturnKaylinn Dokken [address] [place], [place] [id number] 19:00-0400 Hourly RoundingKaylinn Dokken [address] [place], [place] [id number] 19:00-0400 Promise to ReturnKaylinn Dokken [address] [place], [place] [id number] 18:53-0400Body cojfxcvussk80.88 [degF]Kaylinn Dokken [address] [place], [place] [id number] 18:53-0400 Diastolic blood rtpnfzsi04 mm[Hg]Kaylinn Dokken [address] [place], [place] [id number] 18:53-0400Heart rate91 /minKaylinn Dokken [facility]05-02-2023 18:53-0400 Respiratory rate18 /minGila Beasley [facility]05-02-2023 18:53-5109VtH9% (BldA) [Mass fraction]96 %Gial Beasley [facility]05-02-2023 18:53-0400 Systolic blood vxfyywxc907 mm[Hg]Gila Beasley [facility]04-14-2023 09:15-0400Body ivrduf587.86 cmMicheal Bowling Other [facility] Other 04-14-2023 09:15-0400Body mass index (BMI) [Ratio] 31.71 kg/d0PqbjrMicheal Bowling Other [facility] Other 04-14-2023 09:15-0400Body uilhdx14.22 kgMicheal Bowling Other [facility] Other 04-14-2023 09:15-0400Diastolic blood kmjsmtyh53 mm[Hg] Micheal Bowling Other [facility] Other 04-14-2023 09:15-0400Respiratory rate18 /minMicheal Bowling Other [facility] Other 04-14-2023 09:15-0542ZiE9% (BldA) [Mass fraction]98 % Micheal Bowling Other [facility] Other 04-14-2023 09:15-0400Systolic blood svghzvad033 mm[Hg] Micheal Bowling Other [facility] Other 03-24-2023 11:30-0400Body lyhfdg866.86 cmMicheal Bowling Other [facility] Other 03-24-2023 11:30-0400Body mass index (BMI) [Ratio] 32.92 kg/z0Ztclp Kuns Other [facility] Other 03-24-2023 11:30-0400Body qhgzto68.94 kgMicheal Bowling Other [facility] Other 03-24-2023 11:30-0400Diastolic blood yoqlhvrw14 mm[Hg] Micheal Dash Other [facility] Other 03-24-2023 11:30-0400Respiratory rate18 /minMicheal Bowling Other [facility] Other 03-24-2023 11:30-7280QiX0% (BldA) [Mass fraction]99 % Michealflavio [employer] Other [facility] Other 03-24-2023 11:30-0400Systolic blood tascilod490 mm[Hg] Micheal Bowling Other [facility] Other 03-13-2023 11:00-0400Body fxxitq710.86 cmStepsueztte Licona Other [facility] Other 03-13-2023 11:00-0400Body mass index (BMI) [Ratio] 33.73 kg/i8Pbmnacylnira Licona Other [facility] Other 03-13-2023 11:00-0400Body wmnnjroylca54.1 [degF] Macey [employer] Other [facility] Other 03-13-2023 11:00-0400Body ptyozr44.75 kgStepsuzette Reesault Other [facility] Other 03-13-2023 11:00-0400Respiratory rate18 /minSkelly Reesault Other [facility] Other 03-13-2023 11:00-3179RmI9% (BldA) [Mass fraction]96 % Macey Reesault Other [facility] Other 03-10-2023 09:30-0500Body .86 cmMicheal Bowling Other [facility] Other 03-10-2023 09:30-0500Body mass index (BMI) [Ratio] 33.73 kg/v8WesdtMicheal Bowling Other [facility] Other 03-10-2023 09:30-0500Body eugfhe98.75 kgMicheal Bowling Other [facility] Other 03-10-2023 09:30-0500Diastolic blood wxzafrkl52 mm[Hg] Micheal Bowling Other [facility] Other 03-10-2023 09:30-0500Respiratory rate18 /minJemflavio Dash Other [facility] Other 03-10-2023 09:30-9345DrF1% (BldA) [Mass fraction]97 % Micheal Bowling Other [facility] Other 03-10-2023 09:30-0500Systolic blood layhhcii230 mm[Hg] Micheal Bowling Other [facility] Other 12-30-2022 09:00-0500Body jasmfs080.86 cmMicheal Bowling Other [facility] Other 12-30-2022 09:00-0500Body mass index (BMI) [Ratio] 33.52 kg/p4WepojMicheal Bowling Other [facility] Other 12-30-2022 09:00-0500Body dqsfaw30.3 kgMicheal Bowling Other [facility] Other 12-30-2022 09:00-0500Diastolic blood ifhawbwz52 mm[Hg] Micheal Bowling Other [facility] Other 12-30-2022 09:00-0500Respiratory rate16 /minMicheal Bowling Other [facility] Other 12-30-2022 09:00-2216BtM3% (BldA) [Mass fraction]96 % Micheal Bowling Other [facility] Other 12-30-2022 09:00-0500Systolic blood ftvibblo718 mm[Hg] Micheal Bowling Other [facility] Other 12-09-2022 08:25-0500Diastolic blood dkluleir759 mm[Hg]DO Micheal Bowling Work Phone: [facility]12-09-2022 08:25-0500 Heart rate71 /FernandezO Micheal Bowling Work Phone: [facility]12-09-2022 08:25-0500 Respiratory rate16 /Olivia Bowling Work Phone: [facility]12-09-2022 08:25-0500 SaO2% (BldA) [Mass fraction]96 %DO Micheal Bowling Work Phone: [facility]12-09-2022 08:25-0500 Systolic blood fqmfdmbu643 mm[Hg]DO Micheal Bowling Work Phone: [facility]12-09-2022 06:55-0500 Body utaaln335.59 cmDO Micheal Bowling Work Phone: [facility]12-09-2022 06:55-0500 Body mass index (BMI) [Ratio]34.9 kg/m2DO Micheal Bowling Work Phone: [facility]12-09-2022 06:55-0500 Body igciuv96.11 kgDO Micheal Bowling Work Phone: [facility]12-09-2022 06:00-0500 Body exyzjeiipoo68.9 [degF]DO Micheal Bowling Work Phone: [facility]10-19-2022 08:15-0400 Body csutom874.86 cmMicheal Bowling Other [employer] [facility] Other 10-19-2022 08:15-0400Body mass index (BMI) [Ratio] 34.53 kg/j1AoelkMicheal Bowling Other [facility] Other 10-19-2022 08:15-0400Body .57 kgMicheal Bowling Other [facility] Other 10-19-2022 08:15-0400Diastolic blood mm[Hg] Micheal Murrellalix Other [facility] Other 10-19-2022 08:15-0400Respiratory rate18 /minMicheal [employer] Other [facility] Other 10-19-2022 08:15-0802LyA6% (BldA) [Mass fraction]98 % Micheal Bowling Other [facility] Other 10-19-2022 08:15-0400Systolic blood fueqahti575 mm[Hg] Micheal Bowling Other [facility] Other 08-18-2022 13:45-0400Body jsdidb983.86 cmMicheal Bowling Other [facility] Other 08-18-2022 13:45-0400Body mass index (BMI) [Ratio]34.7 kg/u3Kjxwm Dash Other [facility] Other 08-18-2022 13:45-0400Body hqsydz53.93 kgMicheal Bowling Other [facility] Other 08-18-2022 13:45-0400Diastolic blood aivnqzyj46 mm[Hg] Micheal Bowling Other [facility] Other 08-18-2022 13:45-0400Respiratory rate16 /minMicheal Bowling Other [facility] Other 08-18-2022 13:45-1236PlR6% (BldA) [Mass fraction]98 % Michealflavio Bowling Other [facility] Other 08-18-2022 13:45-0400Systolic blood fycjzjcm716 mm[Hg] Michealflavio Bowling Other [facility] Other 08-09-2022 14:15-0400Body mtwohx814.86 cmMicheal Bowling Other [facility] Other [id number] 14:15-0400Body mass index (BMI) [Ratio] 34.13 kg/l0LhuthMicheal Bowling Other [facility] Other 08-09-2022 14:15-0400Body awxtyr84.66 kgMicheal Bowling Other [facility] Other 08-09-2022 14:15-0400Diastolic blood xiwlvnls55 mm[Hg] Michealflavio Bowling Other [facility] Other 08-09-2022 14:15-0400Respiratory rate16 /minMicheal Bowling Other [facility] Other 08-09-2022 14:15-0557FhV7% (BldA) [Mass fraction]96 % Michealflavio Bowling Other [facility] Other 08-09-2022 14:15-0400Systolic blood xgkcleqo489 mm[Hg] Michealflavio Bowling Other [facility] Other 08-01-2022 15:00-0400Body lvobts907.86 cmJemflavio Bowling Other [facility] Other 08-01-2022 15:00-0400Body mass index (BMI) [Ratio] 32.92 kg/o8Jjitm Kuns Other [facility] Other 08-01-2022 15:00-0400Body qlwifc47.94 kgMicheal Bowling Other [facility] Other 08-01-2022 15:00-0400Diastolic blood mnoxnbis51 mm[Hg] Micheal Dash Other [facility] Other 08-01-2022 15:00-0400Respiratory rate16 /minBryflavio Bowling Other [facility] Other 08-01-2022 15:00-0483JjF8% (BldA) [Mass fraction]96 % Micheal Bowling Other [facility] Other 08-01-2022 15:00-0400Systolic blood bvxzthax923 mm[Hg] Micheal Dash Other [facility] Other 05-03-2022 16:45-0400Body adtvgn988.86 cmJemflavio Bowling Other [facility] Other 05-03-2022 16:45-0400Body mass index (BMI) [Ratio] 33.52 kg/t3Hzjdg [employer] Other [facility] Other 05-03-2022 16:45-0400Body yierbw36.3 kgJemflavio Dash Other [facility] Other 05-03-2022 16:45-0400Diastolic blood uzkxvutm88 mm[Hg] Michealflavio [employer] Other [facility] Other 05-03-2022 16:45-0400Respiratory rate16 /minJemflavio Dash Other [facility] Other 05-03-2022 16:45-7176NlX6% (BldA) [Mass fraction]98 % Micheal Bowling Other [facility] Other 05-03-2022 16:45-0400Systolic blood vlehhurz726 mm[Hg] Micheal Bowling Other [facility] Other 03-01-2022 14:45-0500Body txbyoz453.86 cmJemflavio [employer] Other [facility] Other 03-01-2022 14:45-0500Body mass index (BMI) [Ratio] 33.73 kg/m9QahfxMicheal Bowling Other [facility] Other 03-01-2022 14:45-0500Body yomxlj67.75 kgMicheal Bowling Other [facility] Other 03-01-2022 14:45-0500Diastolic blood sxucmlim63 mm[Hg] Micheal Bowling Other [facility] Other 03-01-2022 14:45-0500Respiratory rate16 /minMicheal Bowling Other [facility] Other 03-01-2022 14:45-0408AuI3% (BldA) [Mass fraction]98 % Michealflavio [employer] Other [facility] Other 03-01-2022 14:45-0500Systolic blood bopyhlaa246 mm[Hg] Michealflavio [employer] Other [facility] Other 02-02-2022 10:45-0500Body .86 cmJemflavio [employer] Other [facility] Other 02-02-2022 10:45-0500Body mass index (BMI) [Ratio] 33.12 kg/o0Ugxxp [employer] Other [facility] Other 02-02-2022 10:45-0500Body .39 kgJemflavio Bowling Other [facility] Other 02-02-2022 10:45-0500Diastolic blood sspavpgv80 mm[Hg] Michealflavio [employer] Other [facility] Other 02-02-2022 10:45-0500Respiratory rate18 /minMicheal [employer] Other [facility] Other 02-02-2022 10:45-4125QoX7% (BldA) [Mass fraction]98 % Micheal [employer] Other [facility] Other 02-02-2022 10:45-0500Systolic blood phtdurcz401 mm[Hg] Micheal Bowling Other [facility] Other 12-18-2021 09:15-0500Body qzagkh151.86 cmMicheal Bowling Other [facility] Other 12-18-2021 09:15-0500Body mass index (BMI) [Ratio] 33.52 kg/a3RwrxlMicheal Bowling Other [facility] Other 12-18-2021 09:15-0500Body suqokq87.3 kgMicheal Bowling Other [facility] Other 12-18-2021 09:15-0500Diastolic blood avenqmgr50 mm[Hg] Micheal Bowling Other [facility] Other 12-18-2021 09:15-0500Respiratory rate16 /minMicheal Bowling Other [facility] Other 12-18-2021 09:15-1923HbP4% (BldA) [Mass fraction]98 % Micheal Bowling Other [facility] Other 12-18-2021 09:15-0500Systolic blood yjukovbh169 mm[Hg] Micheal Bowling Other [facility] Other Encounters Encounter DateEncounter TypeCare ProviderFacilityStart: 06-30-2025 End: [id number] encounter procedureMicheal Abraham DO-[facility] Work Phone: Start: 06-30-2025 End: 19-51-8000hoonhcpuxaHptzq Kuns DO Work Phone: [facility] Work Phone: Start: 06-30-2025 End: 91-10-5198Rdihcjee ReferredMicheal Abraham DO-Lab [facility] Work Phone: Start: 06-29-2025 End: 50-72-1981Urfovxwd SupportDesegun Vergara [facility] Work Phone: [facility] AudiologyComment on above:Bilateral hearing loss, unspecified hearing loss type (Primary Dx)Start: 06-29-2025 End: 85-68-2344Aqjqax flowsHerman Vergara [facility] Work Phone: [facility] AudiologyStart: 06-29-2025 End: 92-32-5777Oxjubr flowsheetShelby Vergara [facility] Work Phone: [facility] AudiologyStart: 06-16-2025 End: 27-40-8265rwmlbigvswAIGCYVM D BRUNERNot AvailableStart: 06-13-2025 End: 79-97-6390ydiqmozjflEBPWGTK N AUSTINNot AvailableStart: 06-13-2025 End: 23-05-6728Hlgihj outpatient visit 25 minutesYamila Curtis NP Work Phone: [facility] CareComment on above:Acute cough (Primary Dx); Bronchitis; Eczema, dyshidroticStart: 04-21-2025 End: 94-76-7828Iwdvgn Elaine Lopez MD Work Phone: [facility] 100Start: 04-21-2025 End: 82-38-3069Rtcnvrandrae Lopez MD Work Phone: [facility] 100Start: 04-21-2025 End: 33-26-0250Zdnqhg outpatient visit 25 minutesFran Lopez MD Work Phone: [facility] 100Comment on above:ESS (euthyroid sick syndrome); Chronic fatigue; Non morbid obesity due to excess caloriesStart: 04-21-2025 End: 75-72-6629qtwzbzpiywNZBUCKMaria Luz Barbosa AvailableStart: 04-07-2025 End: 32-77-8921Laeecy Elaine Lopez MD Work Phone: [facility] 100Start: 04-07-2025 End: 86-86-5253Aawdhdscott Lopez MD Work Phone: [facility] 100Start: 04-07-2025 End: 38-41-7288Aqjhrh outpatient visit 25 minutesFran Lopez MD Work Phone: [facility] 100Comment on above:Insulin resistance; Reactive hypoglycemia; Obesity (BMI 30-39.9)Start: 04-07-2025 End: 60-52-2045mxneazvasgARJFFW J HEMEYERNot AvailableStart: 03-29-2025 End: 02-65-0703Xezysqzef Iraj Lopez MD Work Phone: [facility] FM 100Start: 03-18-2025 End: 51-81-6079Zvmvxoqww [facility] Start: 03-10-2025 End: 15-01-7339swdbzvtbthJMNKZJ J HEMEYERNot AvailableStart: 03-03-2025 End: 36-76-5178dqnikpwxmaJgjqrddiyTwin City Hospital Work Phone: Start: 03-03-2025 End: 50-90-0640Rooqahv encounter procedureE[facility] [place] Work Phone: Start: 02-24-2025 End: 77-81-3675Xbdubb outpatient new 45 minutesFran Lopez MD Work Phone: [facility] CI FM 100Comment on above:Hot flashes (Primary Dx); Mood swings; Weight gain; Sleep disorder; Chronic fatigue; Hair loss; Hypothyroidism, unspecified type (CMS/HCC); Non morbid obesity due to excess calories; Testosterone deficiency; Thyroid nodule (CMS/HCC); HypoglycemiaStart: 02-24-2025 End: 75-89-2131qsrixpxgnxAXPJJQ J HEMEYERNot AvailableStart: 01-27-2025 End: 47-53-3878ahwtjzzbtwWwjzl Kuns DO Work Phone: [facility] Work Phone: Start: 01-27-2025 End: 46-43-9761Ztowtpl encounter procedureBryflavio Bowling DO Work Phone: [facility] Work Phone: Start: 01-24-2025 End: 27-14-8096Rkwrxasji encounterAna Ortiz MD Work Phone: [facility] NORWALKStart: 01-05-2025 End: 09-49-4018kuatebarylWuqqh Kuns DO Work Phone: [facility] Work Phone: Start: 01-05-2025 End: 74-60-8414Zqglnpn encounter procedureMicheal Bowling DO Work Phone: [facility] Work Phone: Start: 01-02-2025 End: 13-72-7051Dalguuekk department patient Joan Bergeron [facility] Start: 12-16-2024 End: 93-99-8102jrzezgkwhzIbhgs Kuns DO Work Phone: [facility] Work Phone: Start: 12-16-2024 End: 20-84-7243Jdpkaox encounter procedureMicheal Bowling DO Work Phone: [facility] Work Phone: Start: 11-25-2024 End: 54-11-2894Rvfjhpg encounter procedureMicheal Bowling DO Work Phone: [facility] [place] Work Phone: Start: 11-25-2024 End: 02-52-3922oglshbekmgFwtgm Kuns DO Work Phone: [facility] Work Phone: Start: 11-11-2024 End: 12-12-7664qtagcuqojgNpgpz Kuns DO Work Phone: [facility] Work Phone: Start: 11-11-2024 End: 57-34-1548Buxqtxm encounter procedureMicheal Bowling DO Work Phone: [facility] Work Phone: Start: 10-28-2024 End: 33-03-9646Drtsfxi encounter procedureMicheal Bowling DO Work Phone: [facility] [place] Work Phone: Start: 10-28-2024 End: 65-17-2219vtmkvxzxvzOfded Kuns DO Work Phone: [facility] Work Phone: Start: 10-21-2024 End: 13-36-8222qklfellirvYzkikhcewThe [facility] Hospital Work Phone: Start: 10-21-2024 End: 07-84-9429Fxkjpfq encounter procedureE[facility] Work Phone: Start: 09-08-2024 End: 84-75-2832Guppnii encounter statusWiyolanda Clark DO Work Phone: [facility]: 09-08-2024 End: 94-82-1117Xjsnwxzw preventive med est patient 40-64yrsWillierika Clark DO Work Phone: noms [facility] OBComment on above:Encounter for gynecological examination without abnormal finding; Encounter for Papanicolaou smear of vagina; Breast cancer screening by mammogramStart: 09-08-2024 End: 61-02-9687rikuvzvaelJNMJPQR D BRUNERNot AvailableStart: 08-26-2024 End: 46-98-7382qxtwhznrdcFueaadfkmThe [facility] Hospital Work Phone: Start: 08-26-2024 End: 68-39-3283Xvjsiso encounter procedurePhilomena [facility] Work Phone: Start: 07-26-2024 End: 60-01-7771cqwvyzfqnuSTUOHC Sparkle NEWTONMANNot AvailableStart: 07-26-2024 End: 48-40-7070Gairjn outpatient new 30 minutesSummmarlee Sparkle Andrew PA Work Phone: NOS[facility] SWS UCComment on above:Upper respiratory tract infection, unspecified type (Primary Dx); Pharyngitis, unspecified etiologyStart: 06-22-2024 End: 84-09-7429soycrbpsgqPF Bryan Kuns Work Phone: [facility] Work Phone: Start: 06-22-2024 End: 91-99-9591Esjjvcb encounter procedureDO Micheal Bowling Work Phone: [facility] Work Phone: Start: 04-27-2024 End: 46-80-8467dorpkkocixOP Bryan Kuns Work Phone: [facility] Work Phone: Start: 04-27-2024 End: 73-44-7211Jqvdyok encounter procedureDO Micheal Bowling Work Phone: [facility] Work Phone: Start: 04-07-2024 End: 21-07-2686laarlkyymrTD Bryan Kuns Work Phone: [facility] Work Phone: Start: 04-07-2024 End: 42-81-3165Qquxdwf encounter procedureDO Micheal Bowling Work Phone: [facility] [place] Work Phone: Start: 13-11-8917Wjj-patient / Non-visitDO Micheal Bowling Work Phone: [facility] Work Phone: Start: 03-02-2024 End: 17-78-2403twerdpvzxuYjtjaunxzThe [facility] Hospital Work Phone: Start: 03-02-2024 End: 27-58-9547Jzipnmo encounter procedureE[facility] Work Phone: Start: 01-28-2024 End: 43-27-0974wpobybycsfZmzdwcadlThe Jewish Hospital Work Phone: Start: 01-28-2024 End: 80-76-6572Ygmvzdy encounter procedureE[facility] Work Phone: Start: 16-29-8290Ycc-patient / Non-visitFirhoskinss [facility]ician Group-[facility] Work Phone: Start: 12-26-2023 End: 85-33-7917Oecfsdp encounter procedureAly Castellanos [facility] Start: 12-16-2023 End: 79-21-5641Upwrahc encounter procedureAly Castellanos [facility] Start: 34-41-9136Ckn-patient / Non-visitFirhoskinss [facility]ician Group-[facility] Work Phone: Start: 11-28-2023 End: 91-10-3513tpmfetavpwJA Micheal Bowling Work Phone: [facility] Work Phone: Start: 11-28-2023 End: 10-82-9107Uixlfeq encounter procedureDO Micheal Dash Work Phone: [facility] [place] Work Phone: Start: 11-21-2023 End: 45-08-1418Kfyjdok encounter Wilson Sosatobi [facility] Start: 10-30-2023 End: 11-11-9175Dikbsgm encounter procedureAly Sosatobi [facility] Start: 10-16-2023 End: 15-75-4763wkogwzmzmrNgtja Kuns Other [facility] Other Start: 23-56-6825Mdcgsxtbs encounterBryflavio MurrellalixG [facility] [place]Start: 10-09-2023 End: 37-22-1370zgwqbakzzaLukbo Kuns Other [facility] Other Start: 45-82-1223Inqgsc outpatient visit 15 minutes Micheal HandyalixJANICEG [facility] [place]Start: 10-09-2023 End: 44-60-7930Uihfqxv encounter procedureDO Micheal Bowling Work Phone: [facility] [place] Work Phone: Start: 09-17-2023 End: 81-24-8306jgwipddxlwGzcfr Kuns Other noInterventional Imaging Other Start: 48-32-5585Pgxcyvaxs encounterBryflavio MurrellalixFPG [facility] [place]Start: 09-05-2023 End: 39-97-7191rsqubejvdePvsbz Handys Other [facility] Other Start: 15-52-8224Wtowxw outpatient visit 25 minutes Micheal Garnett [facility] [place]Start: 09-05-2023 End: 42-16-2707Eeqfhnh encounter procedureDO Micheal Bowling Work Phone: [facility] [place] Work Phone: Start: 09-05-2023 End: 03-47-7607Aqlelww encounter procedureDO Micheal Bowling Work Phone: [facility] [place] Work Phone: Start: 09-02-2023 End: 64-92-2670gcjvxpzljiTwbze Handys Other [facility] Other Start: 34-83-8181Mtbjuzyde encounterBryflavio RitterG [facility] [place]Start: 07-31-2023 End: 07-71-4309hmigroesvkBfxnq Kuns Other [facility] Other Start: 90-70-6841Huzsdmmhs encounterBryflavio Garnett [facility] [place]Start: 07-24-2023 End: 52-98-5429jphazldrkrDmjtp Kuns Other [facility] Other Start: 72-91-2309Uczvyf outpatient visit 15 minutes Micheal Garnett [facility] [place]Start: 07-09-2023 End: 25-72-9883mvodumavhlBamgz Kuns Other [facility] Other Start: 91-44-0513Prvitikjh encounterBryflavio RitterG [facility] [place]Start: 07-07-2023 End: 06-06-3773fkoxleinryHiood Kuns Other [facility] Other Start: 78-23-0300Dfyfzmmlu encounterMicheal Garnett [facility] [place]Start: 06-24-2023 End: 20-37-3147kbspemzpvxKwxqu Kuns Other noAmerican Giant Lum[employer] Other Start: 83-74-3205Xuazruvgd encounterBryflavio RitterG [facility] [place]Start: 06-18-2023 End: 06-14-2075jkbexxsbvtRP Micheal Bowling Work Phone: [facility] Work Phone: Start: 06-18-2023 End: 70-15-5008Lcsbaqk encounter procedureDO Micheal Bowling Work Phone: [facility] [place] Work Phone: Start: 06-16-2023 End: 57-55-1693fzmgxfzuzlBvnon Kuns Other noAmerican Giant [employer] Other Start: 53-73-3138Rtnuvc outpatient visit 25 minutes Micheal Garnett [facility] [place]Start: 06-12-2023 End: 91-55-4140dnmxmbcadoUdkql Kuns Other noAmerican Giant [employer] Other Start: 00-65-7442Kfivzdidz encounterBryflavio Garnett [facility] [place]Start: 04-11-2023 End: 75-13-6960lsicxublnmYwqqb Handys Other noInterventional Imaging Other Start: 64-91-4247Habkcawru encounterBryflavio RitterG [facility] [place]Start: 02-10-2023 End: 74-14-6868oybsdgvztrVsulm Kuns Other noInterventional Imaging Other Start: 57-97-7100Sjgsegxft encounterBryflavio RitterG [facility] [place]Start: 02-07-2023 End: 09-40-3296ertpslydytBxlml Kuns Other noInterventional Imaging Other Start: 15-31-6838Ionwwt outpatient visit 15 minutes Micheal RitterG [facility] [place]Start: 02-04-2023 End: 36-70-5272Uzxykzpjk department patient visitGila Beasley [facility] Start: 01-23-2023 End: 62-62-0212sbctxmvguhLhkua Kuns Other noInterventional Imaging Other Start: 12-75-0747Jydowgvsz encounterBryflavio BowlingFPG [facility] [place]Start: 01-17-2023 End: 66-28-6755pcjchvqnffLjatj Kuns Other noInterventional Imaging Other Start: 68-37-0236Gdtwaa outpatient visit 25 minutes Micheal RitterG [facility] [place]Start: 01-12-2023 End: 89-13-7469gooussmkecQD MICHEAL MURRELLAlixFacility:N1Widxe: 12-31-2022 End: 32-48-5995wtrkhhfhlgMmvnx Kuns Other noInterventional Imaging Other Start: 77-49-5237Wfwlpgpbl encounterBryflavio BowlingFPG [facility] [place]Start: 12-27-2022 End: 37-58-8359fhbkblbyduKcdlb Kuns Other noInterventional Imaging Other Start: 65-91-7064Vydxev outpatient visit 15 minutes Micheal BowlingFPG [facility] [place]Start: 12-16-2022 End: 04-90-0861tvgsxonnorQxmhudyeo Breault Other noAmerican Giant [employer] Other Start: 79-04-3374Uygzaf outpatient visit 25 minutes Macey ReesalyssaFPG [facility]gent Care ClydeStart: 09-50-1864Ykzkvevti encounterBryan HandysFPG [facility] Care ClydeStart: 12-13-2022 End: 16-41-0424dnmhbpluuyIrvlw Kuns Other noInterventional Imaging Other Start: 84-84-7969Gquium outpatient visit 25 minutes Micheal MurrellsFPG [facility] [place]Start: 11-07-2022 End: 87-65-7555hnzvbmjnhsJfjjg [place] Other noAmerican Giant [employer] Other Start: 13-41-5439Nzudfmelw encounterHeidi GastFPG Referral CoordinatorStart: 10-30-2022 End: 37-70-5572wurfkakykmHvbeq Kuns Other noInterventional Imaging Other Start: 28-75-2204Knonxkued encounterBryan KunsFPG [facility] [place]Start: 10-23-2022 End: 17-04-1533brumlkcfetHmpdb Kuns Other noInterventional Imaging Other Start: 95-52-3212Ehxpbyqzv encounterBryan KunsFPG [facility] [place]Start: 10-16-2022 End: 44-00-4404lidnbxwhafZqjoy Kuns Other noInterventional Imaging Other Start: 67-59-7423Cowxotmtx encounterBryan KunsFPG [facility] [place]Start: 10-04-2022 End: 11-34-7740vmhvgfunjyNgerg Kuns Other [facility] Other Start: 88-29-8517Gdcfbt outpatient visit 15 minutes Micheal HandyalixSONAL [facility] [place]Start: 09-18-2022 End: 71-24-7807ytqoqqulhgCK MICHEAL BOWLINGFacility:Z2Kcwqh: 09-13-2022 End: 20-66-7876Euasonpvl to same day surgery centerDO Micheal Bowling Work Phone: [facility] CampusStart: 09-13-2022 End: 80-71-5619fuepbmxgvsZH Micheal Bowling Work Phone: [facility] Work Phone: Start: 07-24-2022 End: 27-75-8112inxycpnkflOszgj Kuns Other [facility] Other Start: 24-89-0624Wvqqga outpatient visit 15 minutes Micheal Garnett [facility] [place]Start: 06-27-2022 End: 16-49-5098larnistwkdGswyg Kuns Other [facility] Other Start: 96-50-9127Bragkzvsr encounterMicheal MurrellalixSONAL [facility] [place]Start: 05-23-2022 End: 63-67-0273kmhteszhurIroud Kuns Other [facility] Other Start: 13-43-0037Diuvxn outpatient visit 25 minutes Micheal HandyalixSONAL [facility] [place]Start: 05-15-2022 End: 47-46-0575Ehpupwo encounter procedureDO Micheal Bowling Work Phone: [facility] [place]Start: 05-14-2022 End: 26-72-0431Atjusap encounter procedureDO Micheal Bowling Work Phone: [facility] [place]Start: 05-14-2022 End: 72-07-5784hpuymipkxoNzzsx Kuns Other noInterventional Imaging Other Start: 89-80-9302Ajzfuv outpatient visit 15 minutes Micheal Garnett [facility] [place]Start: 05-12-2022 End: 60-56-2345acypzkuxzeUK MICHEAL HANDYSFacility:C6Cawob: 05-06-2022 End: 35-40-0296hmifblrnetTbjyo Kuns Other noInterventional Imaging Other Start: 20-21-3077Jlgmbh outpatient visit 15 minutes Micheal RitterG [facility] [place]Start: 04-29-2022 End: 86-17-4363tnggcghrjaWltpt Kuns Other noAmerican Giant [employer] Other Start: 74-80-8944Citybjrjq encounterBryflavio BowlingFPG [facility] [place]Start: 04-16-2022 End: 23-60-7746gfaqqiilpbEfmih Kuns Other noAmerican Giant [employer] Other Start: 84-36-7318Skomirgon encounterBryflavio BowlingFPG [facility] [place]Start: 04-15-2022 End: 14-55-8404qlcjlgqynzStger Kuns Other noAmerican Giant [employer] Other Start: 94-55-8768Ovovsldmr encounterBryflavio BowlingFPG [facility] [place]Start: 03-19-2022 End: 00-97-0820gylqnuvxpiAP MICHEAL MURRELLSFacility:W1Mencm: 02-27-2022 End: 18-25-3066fybxkkiuucWtnzy Kuns Other noAmerican Giant [employer] Other Start: 25-16-7071Rivvlksyh encounterBryflavio MurrellsFPG [facility] [place]Start: 02-27-2022 End: 39-02-0196jvecibuxdxUE MICHEAL BOWLINGFacility:G1Byszn: 02-12-2022 End: 48-35-7119cszemgsoifKobtz Kuns Other noAmerican Giant [employer] Other Start: 57-93-9832Cjsxeblpa encounterBryflavio BowlingFPG [facility] [place]Start: 02-07-2022 End: 95-07-3535emojtwyxdiAflox Kuns [facility] Other Start: 55-04-5430Mkrzqtsjc encounterBryflavio BowlingFPG [facility] [place]Start: 02-05-2022 End: 07-30-4712ckfmpnfehnRkudy Kuns Other [facility] Lum[facility] Other Start: 36-09-1925Mbsnhu outpatient visit 25 minutes Micheal BowlingFPG [facility] [place]Start: 01-29-2022 End: 26-80-4084lxweamqfhyHjrje Kuns Other [facility] Other Start: 04-99-7903Nxukubkdn encounterBryflavio BowlingFPG [facility] [place]Start: 2021 End: 00-63-6876dortmzreuvXpgtx Kuns Other [facility] Other Start: 56-07-1304Hlmvkz outpatient visit 25 minutes Micheal RitterG [facility] [place]Start: 11-07-2021 End: 38-28-3086fklrbqqnqiQhuiw Kuns Other noInterventional Imaging Other Start: 38-83-7976Fuyifh outpatient visit 15 minutes Micheal BowlingFPG [facility] [place]Start: 10-18-2021 End: 25-20-0611qqokilsqbaPdzsk Kuns Other noInterventional Imaging Other Start: 71-64-6543Kspgwkjzy encounterMicheal Garnett [facility] [place]Start: 10-10-2021 End: 43-18-7172xmmmblcbgeJlfhe Kuns Other noInterventional Imaging Other Start: 93-94-2243Lbobdcjlk encounterMicheal Garnett [facility] [place]aliaStart: 09-22-2021 End: 35-76-4204flcksbdcbcQzoxb Kuns Other noInterventional Imaging Other Start: 60-89-4768Rwnnuh outpatient visit 15 minutes Micheal Garnett Family [facility] CastaliaStart: 08-23-2021 End: 32-02-6838igrjejwzvjZzgyl Kuns Other noInterventional Imaging Other Start: 32-27-7506Ciddluwyc encounterMicheal Garnett Family [facility] CastaliaStart: 11-66-9181CftecvpwytGAOKAPXG UNKNOWNFacility:1532 Start: 48-94-3905IqdzpeycbcLndmxfzr:9507Start: 69-95-3910PlchvxnqjbDjum Yursky [place] [place] DateProcedureProcedure DetailPerforming ClinicianStart: 82-41-0449FNFEYWHS FUNCTION TESTSShelby Vergara CCC-A Work Phone: start: 12-70-0266PjwykszoyocGqoaktn Berhane UNDERCOLLAR MAKER Work Phone: Start: 17-50-7284Vzfpb Strep (POC)Start: 38-62-1702CU of head with contrastJemflavio Dash DO Work Phone: Start: 64-62-8634Nmigl streptococcus group a amplified probe Samson Ortega DO Work Phone: Start: 63-77-3788PVVJRW COVID-19/FLUMiquel Ortega DO Work Phone: Start: 00-17-6733Kupzb Strep (POC)Start: 99-46-2206IIB (POC)Start: 07-67-4245RvzoytsoxhhAjckpy Workman SARA Work Phone: Start: 49-21-8046Bhtqldfgrz of vulvaDO Micheal Bowling Work Phone: Start: 18-54-3098J-ray of lumbar spine, four or more viewsDO Micheal Bowling Work Phone: Start: 92-58-9839G-ray of both kneesDO Micheal Bowling Work Phone: Gallbladder structure (body structure)Aly Castellanos History and physical examination, schoolMicheal Bowling Other HysterectomyRyflavio Castellanos Plan of Treatment DateCare ActivityDetailAuthorStart: 92-16-3168Zodktxmji for malignant neoplasm of breastMammogramNOMS HealthcareStart: 08-27-2025 End: 32-17-8862F6, reverseT3, reverse Lab Routine Chronic fatigue Hair loss Thyroid nodule (CMS/HCC) Expected: 08/27/2025 (Approximate), Expires: 02/24/2026 N[facility] HealthcareComment on above:Expected: 08/27/2025 (Approximate), Expires: 02/24/2026Start: 08-27-2025 End: 77-41-7561Szynnqvwrkk [Units/volume] in Serum or PlasmaTSH Lab Routine Chronic fatigue Hair loss Thyroid nodule (CMS/HCC) Expected: 08/27/2025 (Approximate), Expires: 02/24/2026NOMS HealthcareComment on above:Expected: 08/27/2025 (Approximate), Expires: 02/24/2026Start: 08-27-2025 End: 55-61-3004Yibljihrm (T4) free [Mass/volume] in Serum or PlasmaT4, free Lab Routine Chronic fatigue Hair loss Thyroid nodule (CMS/HCC) Expected: 08/27/2025 (Approximate), Expires: 02/24/2026NOPA HealthcareComment on above:Expected: 08/27/2025 (Approximate), Expires: 02/24/2026Start: 08-27-2025 End: 60-95-3355Pwijolpuvbglanvd (T3) [Mass/volume] in Serum or PlasmaT3 Lab Routine Chronic fatigue Hair loss Thyroid nodule (CMS/HCC) Expected: 08/27/2025 (Approximate), Expires: 02/24/2026NOPA HealthcareComment on above:Expected: 08/27/2025 (Approximate), Expires: 02/24/2026Start: 08-27-2025 End: 45-64-3224Gekmnuvidsegfean (T3) Free [Mass/volume] in Serum or PlasmaT3, free Lab Routine Chronic fatigue Hair loss Thyroid nodule (CMS/HCC) Expected: 08/27/2025 (Approximate), Expires: 02/24/2026PA HealthcareComment on above: Expected: 08/27/2025 (Approximate), Expires: 02/24/2026Start: 06-22-2025 End: 15-25-3800R4, reverseT3, reverse Lab Routine ESS (euthyroid sick syndrome) Chronic fatigue Expected: 06/22/2025 (Approximate), Expires: 04/21/2026NOPA HealthcareComment on above:Expected: 06/22/2025 (Approximate), Expires: 04/21/2026Start: 06-22-2025 End: 08-49-4555Oabergsrlxs [Units/volume] in Serum or PlasmaTSH Lab Routine ESS (euthyroid sick syndrome) Chronic fatigue Expected: 06/22/2025 (Approximate), Ex alpesh: 04/21/2026NOPA HealthcareComment on above:Expected: 06/22/2025 (Approximate), Expires: 04/21/2026Start: 06-22-2025 End: 10-65-1810Nwnpubvyi (T4) free [Mass/volume] in Serum or PlasmaT4, free Lab Routine ESS (euthyroid sick syndrome) Chronic fatigue Expected: 06/22/2025 (Approximate), Expires: 04/21/2026[facility] HealthcareComment on above:Expected: 06/22/2025 (Approximate), Expires: 04/21/2026Start: 06-22-2025 End: 53-44-4285Upunhfgjhvwpshxj (T3) [Mass/volume] in Serum or PlasmaT3 Lab Routine ESS (euthyroid sick syndrome) Chronic fatigue Expected: 06/22/2025 (Approximate), Expires: 04/21/2026[facility] Work Phone: Comment on above:Expected: 06/22/2025 (Approximate), Expires: 04/21/2026Start: 06-22-2025 End: 22-27-8676Xlcwmmjkleeomhph (T3) Free [Mass/volume] in Serum or PlasmaT3, free Lab Routine ESS (euthyroid sick syndrome) Chronic fatigue Expected: 06/22/2025 (Approximate), Expires: 04/21/2026NOPA HealthcareComment on above: Expected: 06/22/2025 (Approximate), Expires: 04/21/2026Start: 06-06-2025 Influenza vaccinationVA HOSPITAL HealthcareStart: 04-21-2025 End: 78-72-7352Nnviemy encounter procedureNOMS CI FM 100Comment on above:ESS (euthyroid sick syndrome); Chronic fatigue; Non morbid obesity due to excess caloriesStart: 04-07-2025 End: 98-14-3259Ljnsrnk encounter lmvoaayfx37/03/2025 11:00 AM EDT Office Visit [facility] [address] [facility] [address] [place] [address] Fran Lopez MD [address] [place] [address] (Fax) Insulin resistance; Reactive hypoglycemia; Obesity (BMI 30-39.9)[facility] CI FM 100Comment on above:Insulin resistance; Reactive hypoglycemia; Obesity (BMI 30-39.9)Start: 03-03-2025 End: 54-44-9212Ymwxaupykcvx / ancillary services qwnwwoliwo65/29/2025 1:00 PM EDT Ancillary Procedure [facility] [address] [place] [address] [facility] SANDUSKYStart: 02-24-2025 End: 64-00-2869WRRO-sulfateDHEA-sulfate Lab Routine Hot flashes Mood swings Chronic fatigue Hair loss Expected: 02/24/2025 (Approximate), Expires: 02/24/2026[facility] Work Phone: Comment on above:Expected: 02/24/2025 (Approximate), Expires: 02/24/2026Start: 02-24-2025 End: 56-12-3201YgxcumaihSujxiqdev Lab Routine Hot flashes Mood swings Chronic fatigue Hair loss Expected: 02/24/2025 (Approximate), Expires: 02/24/2026NOPA HealthcareComment on above:Expected: 02/24/2025 (Approximate), Expires: 02/24/2026Start: 02-24-2025 End: 93-03-1126OEETSMP RESPONSE TO GLUCOSE, 6 SPECIMENSINSULIN RESPONSE TO GLUCOSE, 6 SPECIMENS Lab Routine Weight gain Chronic fatigue Hypoglycemia Expect ed: 02/24/2025 (Approximate), Expires: 02/24/2026NOMS HealthcareComment on above:Expected: 02/24/2025 (Approximate), Expires: 02/24/2026Start: 02-24-2025 End: 73-57-0656Pikb and Iron binding capacity panel - Serum or PlasmaIron and TIBC Lab Routine Chronic fatigue Hair loss Expected: 02/24/2025 (Approximate), Expires: 02/24/2026NOPA HealthcareComment on above:Expected: 02/24/2025 (Approximate), Expires: 02/24/2026Start: 02-24-2025 End: 25-46-6668Lqollwdcppc of glucose 4 hours after glucose challenge for glucose tolerance testGlucose tolerance, 4 hours Lab Routine Weight gain Chronic fatigue Hypoglycemia Expected: 02/24/2025 (Approximate), Expires: 02/24/2026 NOMS HealthcareComment on above:Expected: 02/24/2025 (Approximate), Expires: 02/24/2026Start: 02-24-2025 End: 57-72-1670NtcexfrlulvjYhwvxtdkgauc Lab Routine Hot flashes Mood swings Chronic fatigue Hair loss Expected: 02/24/2025 (Approximate), Expires: 02/24/2026NOMS HealthcareComment on above:Expected: 02/24/2025 (Approximate), Expires: 02/24/2026Start: 02-24-2025 End: 51-57-7730Tkchjdouetcn [Mass/volume] in Serum or PlasmaTestosterone Lab Routine Hot flashes Mood swings Chronic fatigue Hair loss Expected: 02/24/2025 (Approximate), Expires: 02/24/2026NOMS HealthcareComment on above:Expected: 02/24/2025 (Approximate), Expires: 02/24/2026Start: 02-24-2025 End: 92-50-7761Ebofhhxtnhfsv AntibodyThyroglobulin Antibody Lab Routine Chronic fatigue Hair loss Thyroid nodule (CMS/HCC) Expected: 02/24/2025 (Approximate), Expires: 02/24/2026NOMS HealthcareComment on above:Expected: 02/24/2025 (Approximate), Expires: 02/24/2026Start: 02-24-2025 End: 30-05-7649Vnrikbf peroxidase antibodyThyroid peroxidase antibody Lab Routine Chronic fatigue Hair loss Thyroid nodule (CMS/HCC) Expected: 02/24/2025 (Approximate), Expires: 02/24/2026NOMS HealthcareComment on above:Expected: 02/24/2025 (Approximate), Expires: 02/24/2026Start: 02-24-2025 End: 64-05-3974HB Thyroid glandUS thyroid Imaging Routine Chronic fatigue Thyroid nodule (CMS/HCC) Expected: 02/24/2025, Expires: 02/24/2026NOMS HealthcareComment on above:Expected: 02/24/2025, Expires: 02/24/2026Start: 01-12-2025 End: 80-57-7060RZE Breast - bilateral screeningBilateral screening mammogram with tomosynthesis Imaging Routine Breast cancer screening by mammogram Expected: 01/12/2025, Expires: 11/09/2025NOMS HealthcareComment on above: Expected: 01/12/2025, Expires: 11/09/2025Start: 94-68-7202Xbosdxgjk for malignant neoplasm of breastMammogramNOMS HealthcareStart: 40-64-7555Ixqimxnbl (E2) [Mass/volume] in Serum or [facility]tart: 37-68-4122Mihelydfslo a [Moles/volume] in Serum or [facility]art: 88-77-0753FpotjkyepMarion Hospitaltart: 08-24-2024 End: 01-68-6448Qgbyvli encounter vxzksmoqv43/19/2024 9:30 AM EST Office Visit [facility] [address] [place] [address] Chantel Castelan, SOLAR EN[employer]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-[facility] [address] [place] [address] [facility] Start: 08-20-2024 End: 25-40-3974Zqtmglc encounter gaibpkboc89/15/2024 8:45 AM EST Office Visit [facility] [address] [place] [address] Maycol Clark, DO [address] [place] [address] [facility] OBStart: 21-46-6727Uqfnnakac vaccinationInfluenza Vaccine (#1)[facility] HealthcareStart: 09-13-2022 End: 36-77-8454JlvosocdvMarion Hospitaltart: 94-26-5361Aewrcsdng for malignant neoplasm of cervixNOMS HealthcareStart: 22-82-4781Kzftjgcsm for malignant neoplasm of cervixPap SmearNOMS HealthcareStart: 61-62-5264Cirusvngv for malignant neoplasm of colonNOMS HealthcareComprehensive metabolic 2000 panel - Serum or [facility]CT Head W contrast IV [facility]CT Head WO and W contrast IVFMercy Health Defiance HospitalCT Sinuses WO contrastNorwalk Memorial HospitalEstradiol (E2) [Mass/volume] in Serum or [facility] HospitalGlucose measurement estimated from glycated hemoglobinNorwalk Memorial Hospital Hemoglobin A1c/Hemoglobin.total in [facility] IGP,rfxAptima HPV all,16/18,45IGP,rfxAptima HPV all,16/18,45 Pathology and Cytology Routine Encounter for Papanicolaou smear of vagina Ordered: 09/08/2024 [facility] Work Phone: comment on above:Ordered: 09/08/2024atient Education Low back pain in adultsSelect [facility] Work Phone: [facility] referralTrihealth Work Phone: [facility] Immunizations Immunization DateImmunizationNotesCare OrbbjjtiMiyijoiz24-21-6669sjnwdlgrz, injectable, quadrivalent, preservative freeSummer Workman PA Work Phone: [facility] CenterPdsjmcoqit61-73-6406mhdtaoiwd virus vaccine, unspecified formulationSummer Workman PA Work Phone: [facility] CenterVpykxzrjbe82-53-1854QVDRG-60 Vaccine Pfizer - Documentation Purposes OnlyMicheal Bowling Other [facility]03-26-2021COVID-19 Vaccine Pfizer - Documentation Purposes OnlyMicheal Bowling Other [facility]09-01-2020influenza, injectable, quadrivalent, preservative freeSummer Workman PA Work Phone: [facility] CenterTjygvguokk74-07-6055ldplwiqo influenza, intradermal, preservative freeSummer Workman PA Work Phone: [facility] Payers DatePayer CategoryPayerPolicy [id number] Member Subscriber Plan / Payer (Effective 2025-Present) Name: Brandon Long Relation to Subscriber: Spouse Name: Faustino Long Date of : 1976 (Home) Address: [address] [place] [id number] Payer ID: Not on file Type: Not on file Address: [address] [place] [id number] [id number] 2025Unknown [id number] Health InsuranceM[facility] MEDICA[facility] 1..[id number] Health Center [id number] 2.5.85861[id number] 2..1.645744.3.57[id number] 2..1.100297.3.57[id number] 2..1.920644.3.57[id number] 2..1.537364.3.57[id number] 2..1.714987.3.57[id number] 2..1.711802.3.57[id number] 2.16.840.1.090999.3.57[id number] 2.16.840.1.903609.3.57[id number] 2.16.840.1.607075.3.57[id number] 2.16.840.1.764852.3.57[id number] 2.16.0.1.376461.3.57[id number] 2.16.0.1.338918.3.57[id number] 2.0.1.508570.3.57[id number] 2.16.0.1.664689.3.57[id number] 2.16.0.1.521730.3.57[id number] 2.0.1.254358.3.579.2.1259 [id number] 2..6.894690.2053[id number] 2..1.446280.19Self-paySelf [id number] Social History DateTypeDetailFacilityUnknown if ever smokedNokansas city va medical center Lumiy Other Start: 07-26-2024 End: 69-57-3495Ppz Assigned At [facility] Systemtart: 06-02-2020 End: 22-83-5379Iadwubb smoking status NHISNever smoked tobacco (finding) [facility] Hospitaltart: 57-27-9876Wkk Assigned At [facility] HospitalTobaccoFiMadison HealthComment on above:Denies.deniesTobacco smoking statusSelect Medical Specialty Hospital - Columbustart: 15-24-5860Yuymqye use and exposureSmokeless tobacco non-userNOMS Healthcare Start: 07-26-2024 End: 52-57-1169Spginvefu beverage intakeCurrent drinker of alcohol (finding)N[facility]S HealthcareStart: 07-26-2024 End: 03-12-0371Dniyupsfz beverage intakeNOMS HealthcareStart: 18-79-6636Fikzdub CommentCaffeine intake: 2-3 cups per dayNOMS HealthcareStart: 67-08-1548Kvs assigned at [facility]uke's hospitalNot on fileNOMS HealthcareStart: 02-04-2023 End: 75-92-8221BewYwfgcl (finding)[facility] HospitalHow often to you have a drink containing alcohol?Monthly or lessNOMS HealthcareHow many standard drinks containing alcohol do you have on a typical day?1 or 2NOMS HealthcareHow often do you have 6 or more drinks on 1 occasion?NeverNOMS HealthcareStart: 35-50-3490Rvkvnh identityIdentifies as female gender (finding) [facility] HealthcareStart: 34-74-8734Bhjfsi orientationHeterosexual (finding)[facility] HealthcareHow often do you need to have someone help you when you read instructions, pamphlets, or other written material from your doctor or pharmacy [SILS]SometimesNOMS HealthcareDo you belong to any clubs or organizations such as orthodox groups, unions, fraternal or athletic groups, or school groups?NoNOMS HealthcareAre you now , , , , never or living with a partner?MarriedNOMS HealthcareHow many standard drinks containing alcohol do you have on a typical day?3 or 4NOMS HealthcareHow often do you have 6 or more drinks on 1 occasion?Less than monthlyNOMS HealthcareHow hard is it for you to pay for the very basics like food, housing, medical care, and heating Somewhat hardNOMS HealthcareDo you feel stress - tense, restless, nervous, or anxious, or unable to sleep at night because yourmind is troubled all the time - these days [OSQ]Very muchNOMS Healthcare(I/We) worried whether (my/our) food would run out before (I/we) got money to buy more.Never trueNOMS HealthcareIn the past 12 months, has lack of transportation kept you from medical appointments or from getting medications?NoNOMS HealthcareIn the past 12 months, was there a time when you were not able to pay the mortgage or rent on time?Yes [facility] Goals DatePatient GoalDesired Activity/State Functional Status KjzbVyvaxynirtMgctzzVlbaarfs34-31-4085Zlfqm score [AUDIT-C]3 04/14/2025 8:47 AM EDT Mychart, GenericHedrick Medical CenterBdzkrrhkqw65-63-7493Uoe often to you have a drink containing alcohol?Monthly or less 04/14/2025 8:47 AM EDT Mychart, Generic Monthly or lessNOWestern Missouri Mental Health CenterIiizqltwlx03-25-6948Swu many standard drinks containing alcohol do you have on a typical day?3 or 4 04/14/2025 8:47 AM EDT Mychart, Generic 3 or 4Hedrick Medical CenterJoqjyqulkq09-96-9922Jut often do you have 6 or more drinks on 1 occasion?Less than monthly 04/14/2025 8:47 AM EDT Mychart, Generic Less than monthlyHedrick Medical CenterMimnnepgox41-58-3575Lxjjtfnvzw StatusN/[facility]03-22-2024Functional StatusN/[facility]01-25-2024 Functional StatusNoPark[facility]05-02-2023Functional StatusN/A [facility] Clinical Notes 08-06-2009 to 06-30-2025 Note Date & YsjxGgxuRzsooeun22-33-0236 Evaluation note* Author Leanne Gamino [facility] HospitalAuthoredSeptember 2024 4:12pmThe above note written by Leanne GARNICA acting as human recorder, note dictated by Dr. Micheal Bowling. [facility] Work Phone: 1(443) 229-602209-24-2025 History of Present illness Narrative* MICHELLE Navarrete - 06/29/2025 3:30 PM EDT History: Pt has difficulty hearing in noise and when people are not facing her when speaking. Otoscopic Exam: Ear canal clear and TM intact AU Pure Tone Audiometry Right Ear: Normal Hearing Left Ear: Normal Hearing Tympanometry Right Ear: Type A tympanogram Left Ear: Type A tympanogram Impressions: Bilateral normal hearing and normal middle ear function documented in this encounterHedrick Medical CenterRxbtxiksjb53-25-9783 History of Present illness Narrative* Yamila Curtis NP - 06/13/2025 1:55 PM EDT Images from the original note were not included. [address] [facility], [address] P: [phone] F: [phone] HPI Historian of HPI: patient Brandon Long is a 49 y.o. female who presents today to the Urgent Care with the following complaints and denials which have been present for 5 day(s). C/O Denies Symptom Comments [x] [] Runny Nose Green drainage [] [x] Difficulty Swallowing [] [x] Sore Throat [x] [] Cough Chest congestion Productive; green phlegm [] [x] Ear Pain [] [x] Fever [] [x] Chills [x] [] Nasal Congestion [] [x] Myalgia [] [x] Sinus Pain [x] [] Sinus Pressure In the evening while laying down Additional Comments: pt has taken salt water gargle, Flonase OTC medication with relief Denies N/V/D or fevers. ROS A complete system ROS was performed and negative aside from the pertinent positives noted in the HPI and PE. Visit Vitals BP 126/88 (BP Location: Left arm, Patient Position: Sitting, BP Cuff Size: Large adult) Pulse 88 Temp 97.8 F (Temporal) Wt 168 lb SpO2 97% No BMI 34.51 kg/m OB Status Hysterectomy Smoking Status Never BSA 1.77 m IH Testing: PHYSICAL EXAM Physical Exam Vitals reviewed. Constitutional: General: She is not in acute distress. Appearance: Normal appearance. HENT: Head: Normocephalic and atraumatic. Right Ear: Hearing, tympanic membrane, ear canal and external ear normal. Left Ear: Hearing, tympanic membrane, ear canal and external ear normal. Nose: Congestion present. Right Turbinates: Enlarged and swollen. Left Turbinates: Enlarged and swollen. Mouth/Throat: Lips: Riner. Mouth: Mucous membranes are moist. Pharynx: Oropharynx is clear. Uvula midline. Posterior oropharyngeal erythema and postnasal drip present. Eyes: Extraocular Movements: Extraocular movements intact. Conjunctiva/sclera: Conjunctivae normal. Pupils: Pupils are equal, round, and reactive to light. Cardiovascular: Rate and Rhythm: Normal rate and regular rhythm. Pulses: Normal pulses. Heart sounds: Normal heart sounds. Pulmonary: Effort: Pulmonary effort is normal. No respiratory distress. Breath sounds: Decreased air movement present. Decreased breath sounds present. No wheezing, rhonchi or rales. Musculoskeletal: General: Normal range of motion. Cervical back: Normal range of motion and neck supple. Skin: General: Skin is warm and dry. Capillary Refill: Capillary refill takes less than 2 seconds. Findings: No rash. Neurological: General: No focal deficit present. Mental Status: She is alert and oriented to person, place, and time. Psychiatric: Mood and Affect: Mood normal. Behavior: Behavior normal. Thought Content: Thought content normal. Judgment: Judgment normal. TREATMENT PLAN 1. Acute cough (Primary) Pt presents today for evaluation of productive cough with green sputum and chest congestion for 5 days. Will treat with ATBx given duration of sx. Medication, implications, and side effects discussed. Report any side effects to PCP immediately. Take with food. Change or sterilize toothbrush 24 hours after starting ATB. OTC meds symptomatically and push fluids. The patient will let us know if sx worsen, change, or fail to improve in the next 5-7 days. She has taken oral Prednisone in past as well as cough syrup. The medications do cause GI upset, but she reports if she takes them at night before bed that seems to help. Signs/symptoms and red flags of when to seek emergent medical attention di scussed. Patient expressed an understanding. - predniSONE (Deltasone) 20 MG tablet; Take 1 tablet (20 mg) by mouth Daily for 10 days Dispense: 10 tablet; Refill: 0 - mofyxvzbexrvpug-vkhppozwliirvaf-XY 30-2-10 MG/5ML syrup; Take 10 mL by mouth every 8 (eight) hours if needed for congestion or cough Dispense: 120 mL; Refill: 0 2. Bronchitis -Take medication as prescribed below to completion -cough and deep breathe -May use Tylenol for pain/fever -May use OTC medication such as cough syrups especially at night time for relief, pseudoephedrine for nasal congestion, and/or Alana Pot or saline rinses. -Follow up with in 1 week if no improvement or go to the ED for worsening of symptoms such as SOB or CP - azithromycin (Zithromax) 250 MG tablet; Take 2 tabs on day 1 and 1 tab on days 2-5 then stop Dispense: 6 tablet; Refill: 0 3. Eczema, dyshidrotic Pt notes dry, pruritic areas of palms of bilateral hands. This appears to be a dyshidrotic eczema in nature. Dx and tx discussed. Will send in cream to trial, however, encouraged her to apply only thin layer or wait until oral Prednisone is complete to start. She has a follow up with PCP already scheduled for other concerns. - clobetasol (Temovate) 0.05 % ointment; Apply topically in the morning and before bedtime. Apply to affected area BID for 5 days. Dispense: 45 g; Refill: 0 documented in this encounterHedrick Medical CenterHyzcwlhpdf34-86-1976 History of Present illness Narrative* Fran Lopez MD - 04/21/2025 11:00 AM EDT Images from the original note were not included. Patient ID: Brandon Long is a 49 y.o. female who presents for: Thyroid: Pt here today to review his/hers thyroid labs and any medication changes needed. Fatigue: Present Weight Gain: Absent Inability to lose weight: Present, Unchanged Hair Changes: Present Review of Systems Constitutional: Positive for fatigue. Negative for appetite change. HENT: Negative for trouble swallowing and voice change. Cardiovascular: Positive for palpitations. Musculoskeletal: Positive for arthralgias and myalgias. Psychiatric/Behavioral: Positive for sleep disturbance. The patient is nervous/anxious. Endocrine: Negative for cold intolerance and heat intolerance. Labs reviewed with the patient Thyroid ratio 6.4 Objective The patient is pleasant and in no acute distress The patient has good eye contact and clear speech 12/16/2023 10:02 AM 01/05/2024 7:58 AM 04/26/2024 8:44 AM 07/26/2024 5:45 PM 09/08/2024 4:12 PM 02/24/2025 10:38 AM 04/07/2025 10:43 AM Vitals BMI 30.61 kg/m2 30.61 kg/m2 32.46 kg/m2 33.2 kg/m2 33.28 kg/m2 34.51 kg/m2 34.51 kg/m2 BSA (m2) 1.67 m2 1.67 m2 1.72 m2 1.74 m2 1.74 m2 1.77 m2 1.77 m2 Systolic 142 124 Diastolic 82 74 Temp 97.1 F 97.7 F Height (in) 4' 10.5 4' 10.5 4' 10.5 4' 10.5 4' 10.5 Weight (lb) 149 149 158 161.6 162 168 168 Visit Report Report Report Report Report Report Allergies Allergen Reactions Betamethasone Other Reaction(s): polyarthralgia Cefdinir Hives Clavulanic Acid GI intolerance Cyclobenzaprine Other Reaction(s): jittery Methylprednisolone GI intolerance Penicillins Other Reaction(s): Hives Phentermine Other Reaction(s): Rapid heart rate Sulfamethoxazole Other Reaction(s): GI issues Sulfamethoxazole-Trimethoprim Other Reaction(s): vomiting Tramadol Other Reaction(s): jittery Trimethoprim Other Reaction(s): unknown Vancomycin Other Reaction(s): hives Current Outpatient Medications on File Prior to Visit Medication Sig Dispense Refill albuterol HFA 90 mcg/act inhaler every 4 (four) hours. amLODIPine (Norvasc) 5 MG tablet Take 5 mg by mouth in the morning and 5 mg before bedtime. furosemide (Lasix) 20 MG tablet Take 20 mg by mouth if needed linaCLOtide (Linzess) 72 MCG capsule Take 72 mcg by mouth if needed MAGNESIUM PO Take 1 capsule by mouth 3 (three) times a week metFORMIN XR (Glucophage-XR) 500 MG 24 hr tablet Take 1 tablet (500 mg) by mouth in the morning. Take with meals. Do not crush, chew, or split. 30 tablet 0 olmesartan (BENIcar) 40 MG tablet TAKE 1 TABLET BY MOUTH EVERY DAY FOR 90 DAYS omeprazole (PriLOSEC) [address] capsule 1 (one) time each day at the same time. spironolactone (Aldactone) 25 MG tablet TAKE 1 TABLET BY MOUTH EVERY DAY FOR 90 DAYS tiZANidine (Zanaflex) 4 MG tablet if needed No current facility-administered medications on file prior to visit. 1. ESS (euthyroid sick syndrome) New, chronic problem, unstable, not to goal, requiring complex clinical decision making. I reviewed the results of any; laboratories, ultrasound, and other labs as appropriate with the patient or their client service representative. I discussed the patien'ts current psychosocial and physical condition and the stress impact upon them. I educated them as to the diagnoses, and that treatment for some ofthese may not be considered the standard of care, including TSH suppression when utilized. I reviewed the patient's current prescriptions and discussed the possibilities of medication adjustments or further treatment options. If new medication is prescribed, the main side effects and potential drug interactions were reviewed. They have been educated and instructed concerning the medications and the timing for taking them, the protocol itself, diet and exercise, and informed consent. See the scanned consent form and thyroid medication titration schedule for specific instructions. They have been instructed to follow up in 3 months and to bring a diet and exercise log, and the importance of follow up and compliance. The patient has also been adviced if they do not bring the diet and excercise log Multiple questions were answered. How to titrate medication reviewed with the patient. - liothyronine (Cytomel) 5 MCG tablet; Take 1.5 tablet in AM and 1.5 tablet in PM on an empty stomach. TOYR; Uberpong or Vanilla Breeze brands only Dispense: 270 tablet; Refill: 0 - T3; Future - T3, free; Future - T3, reverse; Future - T4, free; Future - TSH; Future - T3 - T3, free - T3, reverse - T4, free - TSH 2. Chronic fatigue Chronic problem, stable, complex in nature with moderate decision making. I discussed with the patient or their client service representative, their fatigue issues. We discussed how this is improved significantly. We discussed how this is almost always a multifactorial problem. We discussed how we will continue to search for refinements in their current treatments or evaluation for further disease processes and then support or treat them as appropriate. We discussed how we can frequently manage the symptoms, but may not be able to completely cure or resolve the issue. The patient will almost certainly need to continue to make lifestyle changes including diet, sleep, exercise, and stress management as appropriate. The patient was given a chance to ask questions and all questions were answered. - liothyronine (Cytomel) 5 MCG tablet; Take 1.5 tablet in AM and 1.5 tablet in PM on an empty stomach. TORY; Uberpong or Vanilla Breeze brands only Dispense: 270 tablet; Refill: 0 - T3; Future - T3, free; Future - T3, reverse; Future - T4, free; Future - TSH; Future - T3 - T3, free - T3, reverse - T4, free - TSH 3. Non morbid obesity due to excess calories Lifestyle changes as noted documented in this encounterHedrick Medical CenterMcgthlwzhy59-94-4902 History of Present illness Narrative* Fran Lopez MD - 04/07/2025 11:00 AM EDT Images from the original note were not included. Patient ID: Brandon Long is a 49 y.o. female who presents for: Review Results: Patient is here in the office today to review recent labs or diagnostic imaging with Dr Mac Lopez per his request. Based on the results they will also review treatment options. Please see labs scanned. Patient notes she was very symptomatic around the 3 hour kraig on her glucose tolerance test. Objective The patient is pleasant and in no acute distress The patient has good eye contact and clear speech 12/16/2023 10:02 AM 01/05/2024 7:58 AM 04/26/2024 8:44 AM 07/26/2024 5:45 PM 09/08/2024 4:12 PM 02/24/2025 10:38 AM 04/07/2025 10:43 AM Vitals BMI 30.61 kg/m2 30.61 kg/m2 32.46 kg/m2 33.2 kg/m2 33.28 kg/m2 34.51 kg/m2 34.51 kg/m2 BSA (m2) 1.67 m2 1.67 m2 1.72 m2 1.74 m2 1.74 m2 1.77 m2 1.77 m2 Systolic 142 124 Diastolic 82 74 Temp 97.1 F 97.7 F Height (in) 4' 10.5 4' 10.5 4' 10.5 4' 10.5 4' 10.5 Weight (lb) 149 149 158 161.6 162 168 168 Visit Report Report Report Report Report Report Allergies Allergen Reactions Betamethasone Other Reaction(s): polyarthralgia Cefdinir Hives Clavulanic Acid GI intolerance Cyclobenzaprine Other Reaction(s): jittery Methylprednisolone GI intolerance Penicillins Other Reaction(s): Hives Phentermine Other Reaction(s): Rapid heart rate Sulfamethoxazole Other Reaction(s): GI issues Sulfamethoxazole-Trimethoprim Other Reaction(s): vomiting Tramadol Other Reaction(s): jittery Trimethoprim Other Reaction(s): unknown Vancomycin Other Reaction(s): hives Current Outpatient Medications on File Prior to Visit Medication Sig Dispense Refill albuterol HFA 90 mcg/act inhaler every 4 (four) hours. amLODIPine (Norvasc) 5 MG tablet Take 5 mg by mouth in the morning and 5 mg before bedtime. furosemide (Lasix) 20 MG tablet Take 20 mg by mouth if needed linaCLOtide (Linzess) 72 MCG capsule Take 72 mcg by mouth if needed MAGNESIUM PO Take 1 capsule by mouth 3 (three) times a week olmesartan (BENIcar) 40 MG tablet TAKE 1 TABLET BY MOUTH EVERY DAY FOR 90 DAYS omeprazole (PriLOSEC) [address] capsule 1 (one) time each day at the same time. spironolactone (Aldactone) 25 MG tablet TAKE 1 TABLET BY MOUTH EVERY DAY FOR 90 DAYS tiZANidine (Zanaflex) 4 MG tablet if needed No current facility-administered medications on file prior to visit. 1. Insulin resistance New, chronic problem, unstable, complex medical decision making I have reviewed the patients 4 hour 75 g GTT with insulin levels test results, plotted the graphs, and interpreted the test results, see the scanned document. The interpretation is based on: 1) Variations in insulin stimulated glucose uptake in a healthy individuals with normal glucose tolerance from the Journal of Clinical Endocrinology Metabolism 1987, 64; 1169 - 1173. 2) Louann MAST. Detection of diabetes mellitus in situ (occult diabetes). Lab Med 1975; 6: 10-22. 10.1093/labmed/6.2.10 I then reviewed this with them, and educated them about the labs and there meanings. We discussed the concepts of insulin resistance, glucose intolerance (pre-diabetes), or Diabetes Mellitus as appropriate, and the co-morbidities associated with these diagnoses. We discussed treatment options including instruction where appropriate for diet, exercise, stress reduction, medication, and supplements. I educated them that these concepts are not traditional allopathic concepts but considered alternative by many providers. In prescribing any new medication, consideration of the following encompasses moderate decision making; the patient s current prescriptions and supplements, the patient s current allergies and medication intolerances, the patient s current medical conditions, and potential drug interactions. The patient was given a chance to ask questions today and all questions were answered. The patient is to contact us, preferably by using the patient portal, or call if any other questions arise or ifany problems occur with the new medication. We have also discussed that any supplements recommended have not undergone review or approval by the FDA and, therefore, have not been documented to be safe or effective to diagnose, treat, prevent, mitigate, or cure any condition or disease. - metFORMIN XR (Glucophage-XR) 500 MG 24 hr tablet; Take 1 tablet (500 mg) by mouth in the morning.Take with meals. Do not crush, chew, or split. Dispense: 30 tablet; Refill: 0 2. Reactive hypoglycemia As noted above we did spend quite a bit of time discussing the concepts of sugar, simple carbohydrates versus complex carbohydrates. 3. Obesity (BMI 30-39.9) Lifestyle changes noted documented in this encounterH[facility] [id number] Telephone encounter Note* Telephone Encounter - Fran Lopez MD - 03/29/2025 3:55 PM EDT 4hour GTT back, iron not optimal, and needs OV. Thyroid, new ESS, no autoimmune thyroid disease, needs OV I Have to work thru her sex hormones yet, but we can get the above going. I personally would do thyroid first. [facility] [id number] Miscellaneous Notes* Telephone Encounter - Fran Lopez MD - 03/29/2025 3:55 PM EDT 4hour GTT back, iron not optimal, and needs OV. Thyroid, new ESS, no autoimmune thyroid disease, needs OV I Have to work thru her sex hormones yet, but we can get the above going. I personally would do thyroid first. documented in this encounterHedrick [facility] [id number] Hospital Discharge instructions Patient Education 03/18/2025 17:18:40 Bronchospasm, Adult, Scnt-vh-Twya Bronchospasm, Adult Bronchospasm is when the small airways in the lungs narrow. This can make it very hard to breathe. Swelling and more mucus than normal can add to this problem. What are the causes? Having a cold. Exercise. The smell from sprays, perfumes, candles, and hydroelectric plant operator. Cold air. Stress or strong feelings such as laughing or crying. What increases the risk? Having asthma. Smoking. Being around someone who smokes (secondhand smoke). Having allergies. Being allergic to certain foods, medicine, or bug bites or stings. What are the signs or symptoms? Making a high-pitched whistling sound when you breathe, most often when you breathe out (wheezing). Coughing. A tight feeling in your chest. Feeling like you cannot catch your breath. Feeling like you have no energy to exercise. Breathing that is noisy. A cough that has a high pitch. How is this treated? Using medicines that you breathe in (inhale). These open up the airways and help you breathe. Medicines can be taken with a metered dose inhaler or a nebulizer device. Taking medicines to reduce swelling. Getting rid of what started the bronchospasm. Follow these instructions at home: Medicines Take nbft-gun-hynltyi and prescription medicines only as told by your doctor. If you need to use an inhaler or nebulizer to take your medicine, ask your doctor how to use it. You may be given a spacer to use with your inhaler. This makes it easier to get the medicine from the inhaler into your lungs. Lifestyle Do not smoke or use any products that contain nicotine or tobacco. If you need help quitting, ask your doctor. Keep track of things that start your bronchospasm. Avoid these if you can. When pollen, air pollution, or humidity is bad, keep windows closed. Use an air conditioner if you have one. Find ways to cope with stress and your feelings. Activity Some people have bronchospasm when they exercise. This is called exercise- induced bronchoconstriction (EIB). If you have this problem, talk with your doctor about how to deal with EIB. Some tips include: Use your inhaler before exercise. Exercise indoors if it is very cold or humid, or if the pollen and mold counts are high. Warm up and cool down before and after exercise. Stop your exercise right away if your symptoms start or get worse. General instructions If you have asthma, make sure you have an asthma action plan. Stay up to date on your shots (immunizations). Keep all follow-up visits. Get help right away if: You have trouble breathing. You wheeze and cough and this does not get better after you take medicine. You have chest pain. You have trouble speaking more than one word in a sentence. These symptoms may be an emergency. Get help right away. Call 911. Do not wait to see if the symptoms will go away. Do not drive yourself to the hospital. Summary Bronchospasm is when the small airways in the lungs narrow. Swelling and more mucus than normal canadd to this problem. This can make it very hard to breathe. Do not smoke or use any products that contain nicotine or tobacco. If you need help quitting, ask your doctor. Get help right away if you wheeze and cough and this does not get better after you take medicine. This information is not intended to replace advice given to you by your health care provider. Make sure you discuss any questions you have with your health care provider. Document Revised: 04/15/2022 Document Reviewed: 04/15/2022 [employer] Patient Education 2023 [email or web address]. 03/18/2025 17:18:40 Asthma, Adult Asthma, Adult Asthma is a long-term (chronic) condition that causes recurrent episodes in which the lower airwaysin the lungs become tight and narrow. The narrowing is caused by inflammation and tightening of thesmooth muscle around the lower airways. Asthma episodes, [...] or hours later and can vary by person.Common signs and symptoms include: Wheezing. Trouble breathing (shortness of breath). Excessive nighttime or disability coordinator coughing. Chest tightness. Tiredness (fatigue) with [...] condition. Follow these instructions at home: Take oqve-yuv-xltnqya and prescription medicines only as told by [...] provider. Document Revised: 07/10/2022 Document Reviewed: 07/01/2022 [employer] Patient Education 2023 [email or web address]. 03/18/2025 17:18:40 Asthma Attack Asthma Attack Asthma attack, also called asthma flare or acute bronchospasm, is the sudden narrowing and tightening of the lower airways (bronchi) in the lungs, that can make it hard to breathe. The narrowing is caused by inflammation and tightening of the smooth muscle that wraps around the lower airways in thelungs. Asthma attacks may cause coughing, high-pitched whistling sounds when you breathe, most often when you breathe out (wheezing), trouble breathing (shortness of breath), and chest pain. The airways mayproduce extra mucus caused by the inflammation and irritation. During an asthma attack, it can be di fficult to breathe. It is important to get treatment right away. Asthma attacks can range from minor to life-threatening. What are the causes? Possible causes or triggers of this condition include: Household allergens like dust, pet dander, and cockroaches. Mold and pollen from trees or grass. Air pollutants such as household hydroelectric plant operator, aerosol sprays, strong odors, and smoke of any kind. Weather changes and cold air. Stress or strong emotions such as crying or laughing hard. Exercise or activity that requires a lot of energy. Certain medicines or medical conditions such as: ?Aspirin or beta-blockers. ?Infections or inflammatory conditions, such as a flu (influenza), a cold, pneumonia, or inflammation of the nasal membranes (rhinitis). ?Gastroesophageal reflux disease (GERD). GERD is a condition in which stomach acid backs up into your esophagus and spills into your trachea (windpipe), which can irritate your airways. What are the signs or symptoms? Symptoms of this condition include: Wheezing. Excessive coughing. This may only happen at night. Chest tightness or pain. Shortness of breath. Difficulty talking in complete sentences. Feeling like you cannot get enough air, no matter how hard you breathe (air hunger). How is this diagnosed? This condition may be diagnosed based on: A physical exam and your medical history. Your symptoms. Tests to check for other causes of your symptoms or other conditions that may have triggered your asthma attack. These tests may include: ?A chest X-ray. ?Blood tests. ?Lung function studies (spirometry) to evaluate the flow of air in your lungs. How is this treated? Treatment for this condition depends on the severity and cause of your asthma attack. For mild attacks, you may receive medicines through a hand-held inhaler (metered dose inhaler or MDI) or through a device that turns liquid medicine into a mist (nebulizer). These medicines include: ?Quick relief or rescue medicines that quickly relax the airways and lungs. ?Long-acting medicines that are used daily to prevent (control) your asthma symptoms. For moderate or severe attacks, you may be treated with steroid medicines by mouth or through an IVinjection at the hospital. For severe attacks, you may need oxygen therapy or a breathing machine (ventilator). If your asthma attack was caused by an infection from bacteria, you will be given antibiotic medicines. Follow these instructions at home: Medicines Take rkay-jdi-zpvdlry and prescription medicines only as told by your health care provider. If you were prescribed an antibiotic medicine, take it as told by your health care provider. Do notstop using the antibiotic even if you start to feel better. Tell your doctor if you are or may be to make sure your asthma medicine is safe to use during . Avoiding triggers Keep track of things that trigger your asthma attacks. Avoid exposure to these triggers. Do not use any products that contain nicotine or tobacco. These products include cigarettes, chewing tobacco, and vaping devices, such as e-cigarettes. If you need help quitting, ask your health careprovider. When there is a lot of pollen, air pollution, or humidity, keep windows closed and use an air conditioner or go to places with air conditioning. Asthma action plan Work with your health care provider to make a written plan for managing and treating your asthma attacks (asthma action plan). This plan should include: ?A list of your asthma triggers and how to avoid them. ?A list of symptoms that you may have during an asthma attack. ?Information about which medicine to take, when to take the medicine, and how much of the medicine to take. ?Information to help you understand your peak flow measurements. ?Daily actions that you can take to control your asthma symptoms. ?Contact information for your health care providers. If you have an asthma attack, act quickly. Follow the emergency steps on your written asthma actionplan. This may prevent you from needing to go to the hospital. Talk to a family member or close friend about your asthma action plan and who to contact in case you need help. General instructions Avoid excessive exercise or activity until your asthma attack goes away. Stay up to date on all your vaccines, such as flu and pneumonia vaccines. Keep all follow-up visits. This is important. Contact a health care provider if: You have followed your action plan for 1 hour and your peak flow reading is still at 50 79% of yourpersonal best. This is in the yellow zone, which means caution. You need to use your quick reliever medicine more frequently than normal. Your medicines are causing side effects, such as rash, itching, swelling, or trouble breathing. Your symptoms do not improve after taking medicine. You have a fever. Get help right away if: Your peak flow reading is less than 50% of your personal best. This is in the red zone, which means danger. You develop chest pain or discomfort. Your medicines no longer seem to be helping. You are coughing up bloody mucus. You have a fever and your symptoms suddenly get worse. You have trouble swallowing. You feel very tired, and breathing becomes tiring. These symptoms may be an emergency. Get help right away. Call 911. Do not wait to see if the symptoms will go away. Do not drive yourself to the hospital. Summary Asthma attacks are caused by narrowing or tightness in air passages, which causes shortness of breath, coughing, and wheezing. Many things can trigger an asthma attack, such as allergens, weather changes, exercise, strong odors, and smoke of any kind. If you have an asthma attack, act quickly. Follow the emergency steps on your written asthma actionplan. Get help right away if you have severe trouble breathing, chest pain, or fever, or if your home medicines are no longer helping with your symptoms. This information is not intended to replace advice given to you by your health care provider. Make sure you discuss any questions you have with your health care provider. Document Revised: 07/14/2022 Document Reviewed: 07/14/2022 [employer] Patient Education 2023 [employer] Follow Up Care 03/18/2025 15:08:49 With:MICHEAL BOWLING Address: [address] [place], [place] [id number] Business (1) When:03/21/2025 17:08:51 Comments:Call Dr for diagnosis based follow up [facility] 06-13-2025 NoteED Patient Education Note Pulmonary Medicine Bronchospasm, Adult Bronchospasm is when the small airways in the lungs narrow. This can make it very hard to breathe. Swelling and more mucus than normal can add to this problem. What are the causes? Having a cold. ??? Exercise. ??? The smell from sprays, perfumes, candles, and hydroelectric plant operator. ??? Cold air. ??? Stress or strong feelings such as laughing or crying. What increases the risk? Having asthma. ??? Smoking. ??? Being around someone who smokes (secondhand smoke). ??? Having allergies. ??? Being allergic to certain foods, medicine, or bug bites or stings. What are the signs or symptoms? Making a high-pitched whistling sound when you breathe, most often when you breathe out (wheezing). ??? Coughing. ??? A tight feeling in your chest. ??? Feeling like you cannot catch your breath. ??? Feeling like you have no energy to exercise. ??? Breathing that is noisy. ??? A cough that has a high pitch. How is this treated? Using medicines that you breathe in (inhale). These open up the airways and help you breathe. Medicines can be taken with a metered dose inhaler or a nebulizer device. ??? Taking medicines to reduce swelling. ??? Getting rid of what started the bronchospasm. Follow these instructions at home: Medicines ??? Take hwgb-mag-ignumvf and prescription medicines only as told by your doctor. ??? If you need to use an inhaler or nebulizer to take your medicine, ask your doctor how to use it. ??? You may be given a spacer to use with your inhaler. This makes it easier to get the medicine from the inhaler into your lungs. Lifestyle ??? Do not smoke or use any products that contain nicotine or tobacco. If you need help quitting, ask your doctor. ??? Keep track of things that start your bronchospasm. Avoid these if you can. ??? When pollen, air pollution, or humidity is bad, keep windows closed. Use an air conditioner if you have one. ??? Find ways to cope with stress and your feelings. Activity Some people have bronchospasm when they exercise. This is called exercise- induced bronchoconstriction (EIB). If you have this problem, talk with your doctor about how to deal with EIB. Some tips include: ??? Use your inhaler before exercise. ??? Exercise indoors if it is very cold or humid, or if the pollen and mold counts are high. ??? Warm up and cool down before and after exercise. ??? Stop your exercise right away if your symptoms start or get worse. General instructions ??? If you have asthma, make sure you have an asthma action plan. ??? Stay up to date on your shots (immunizations). ??? Keep all follow-up visits. Get help right away if: ??? You have trouble breathing. ??? You wheeze and cough and this does not get better after you take medicine. ??? You have chest pain. ??? You have trouble speaking more than one word in a sentence. These symptoms may be an emergency. Get help right away. Call 911. ??? Do not wait to see if the symptoms will go away. ??? Do not drive yourself to the hospital. Summary ??? Bronchospasm is when the small airways in the lungs narrow. Swelling and more mucus than normalcan add to this problem. This can make it very hard to breathe. ??? Do not smoke or use any products that contain nicotine or tobacco. If you need help quitting, ask your doctor. ??? Get help right away if you wheeze and cough and this does not get better after you take medicine. This information is not intended to replace advice given to you by your health care provider. Make sure you discuss any questions you have with your health care provider. Document Revised: 04/15/2022 Document Reviewed: 04/15/2022 [employer] Patient Education ? 2023 [email or web address]. Asthma, Adult Asthma is a long-term (chronic) condition that causes recurrent episodes in which the lower airwaysin the lungs become tight and narrow. The narrowing is caused by inflammation and tightening of thesmooth muscle around the lower airways. Asthma episodes, [...] attack? Many things can bring on an a (more content not included)...[facility]06-13-2025 Evaluation + Plan noteExtracted from:Title:ED NoteAuthor: Edmond EATON, Hunter Machado.Date:03/18/25 Asthma exacerbation (J45.901 : Unspecified asthma with (acute) exacerbation) Orders: albuterol-ipratropium, 3 mL, Soln-Inh, Inhalation, Once, Stop date 03/18/25 16:01:00 EDT, STAT, Start date 03/18/25 16:01:00 EDT azithromycin, 250 mg, Oral, As Directed, # 6 tab(s), Refills(s) 0, Pharmacy: [facility]/pharmacy #[id number], 167, cm, 03/18/25 15:14:00 EDT, Height/Length Dosing, 75, kg, 03/18/25 15:14:00 EDT, Weight Dosing brompheniramine/dextromethorphan/PSE, 5 mL, Oral, QID for cold symptoms, 200 mL, Refill(s) 0, [id number], 167, cm, 03/18/25 15:14:00 EDT, Height/Length Dosing, 75, kg, 03/18/25 15:14:00 EDT, Weight Dosing predniSONE, 60 mg = 3 tab(s), Oral, Daily, X 7 day(s), # 21 tab(s), Refills(s) 0, Pharmacy: [facility]/pharmacy #[id number], 167, cm, 03/18/25 15:14:00 EDT, Height/Length Dosing, 75, kg, 03/18/25 15:14:00 EDT, Weight Dosing [facility] 05-22-2025 History of Present illness Narrative* Fran Lopez MD - 02/24/2025 11:00 AM EDT Images from the original note were not included. Patient ID: Brandon Long is a 49 y.o. female who presents for: Female HRT: Symptoms include: Hot Flashes, Low Sex Drive, Insomnia Severity: hot flashes are a little better because of supplement the rest symptoms are moderate Other Symptoms: Mood Swings, Bladder Issues, Thinning Hair, Date of Last Mammogram: scheduled next week Review of Systems See Hormone questionaire Objective In general the patient is pleasant and in no acute distress. Oropharynx has moist mucosa there is no specific evidence of thrush. There is mild erythema of the pharynx. Shoddy Nontender, bilateral anterior cervical adenopathy. The thyroid gland itself appears to be normal in size, nontender, mildly asymmetric with left greater than right. It is mildly indurated. On the lower left portion there is either a small nodule or small lymph node palpable. It is nontender. No signs of respiratory distress. Patient is speaking full sentences. There are symmetrical breath sounds. No rhonchi or rales are appreciated. No wheezes. Skin is warm and dry 08/13/2023 10:30 AM 08/25/2023 11:21 AM 12/16/2023 10:02 AM 01/05/2024 7:58 AM 04/26/2024 8:44 AM 07/26/2024 5:45 PM 09/08/2024 4:12 PM Vitals BMI 30.67 kg/m2 30.61 kg/m2 30.61 kg/m2 30.61 kg/m2 32.46 kg/m2 33.2 kg/m2 33.28 kg/m2 BSA (m2) 1.67 m2 1.67 m2 1.67 m2 1.67 m2 1.72 m2 1.74 m2 1.74 m2 Systolic 126 142 124 Diastolic 64 82 74 Temp 97.1 F 97.1 F 97.7 F Height (in) 4' 10.5 4' 10.5 4' 10.5 4' 10.5 4' 10.5 Weight (lb) 149.3 149 149 149 158 161.6 162 Visit Report Report Report Report Report Report Allergies Allergen Reactions Betamethasone Other Reaction(s): polyarthralgia Cefdinir Hives Clavulanic Acid GI intolerance Cyclobenzaprine Other Reaction(s): jittery Methylprednisolone GI intolerance Penicillins Other Reaction(s): Hives Phentermine Other Reaction(s): Rapid heart rate Sulfamethoxazole Other Reaction(s): GI issues Sulfamethoxazole-Trimethoprim Other Reaction(s): vomiting Tramadol Other Reaction(s): jittery Trimethoprim Other Reaction(s): unknown Vancomycin Other Reaction(s): hives Current Outpatient Medications on File Prior to Visit Medication Sig Dispense Refill albuterol HFA 90 mcg/act inhaler every 4 (four) hours. amLODIPine (Norvasc) 5 MG tablet Take 5 mg by mouth in the morning and 5 mg before bedtime. furosemide (Lasix) 20 MG tablet Take 20 mg by mouth if needed linaCLOtide (Linzess) 72 MCG capsule Take 72 mcg by mouth if needed olmesartan (BENIcar) 40 MG tablet TAKE 1 TABLET BY MOUTH EVERY DAY FOR 90 DAYS omeprazole (PriLOSEC) [address] capsule 1 (one) time each day at the same time. spironolactone (Aldactone) 25 MG tablet TAKE 1 TABLET BY MOUTH EVERY DAY FOR 90 DAYS tiZANidine (Zanaflex) 4 MG tablet if needed MAGNESIUM PO Take by mouth No current facility-administered medications on file prior to visit. 1. Hot flashes (Primary) I have reviewed their current clinical hormonal status, symptoms, any previous gynecologic surgeries, and any laboratory results they may have. I have discussed the Environmental Medicine concepts of traditional HRT, Bio- identical HRT, and supportive therapy for; ovaries, adrenal glands, and thyroid gland as appropriate. I have discussed the issues that these are complex treatments due to the multiple physiologic and pathologic biochemical pathways involved, and concerning some of these treatments as not being the standard of care. I have recommended that they consider researching some of these issues on their own,so that they may truly be informed, and be able to consent as such. The following references are a starting point; https://www.acog.org/Teqwgguq-Ajywqgcs-vnj-Publications/Committee-Opinions/Commi bxbs-mm-Oszpvnxbeen-Practice/Xfmcrfq-Cvprjzh-cs-Rxbvoum-Tsqmgva-Qpnutqhmsargr [email or web address] [email or web address]-hxxttzkrh-ggpzjjm-aimkmlq-ak-ydmplpom-augustina black/ [employer] by Jacqui Gibson, Bel Rodriguez, Katie Mueller, Esther Lamar, Clara Cordero & Sergio Oneil (2016) Estradiol therapy and breast cancer risk in perimenopausal and postmenopausal women: a systematic review and meta-analysis, Gynecological Endocrinology, 33:2, 87-92, DOI: 10.1080/80670663.2016.0334264 Effect of hormone replacement therapy on cardiovascular events in recently postmenopausal women: Randomized trial; BMJ 2012;345:e6409 I have reviewed with them the need to have regular breast cancer screening and if they do not participate in breast cancer screening then I will not be able to continue treatment. I also reviewed with them that if testosterone used, it is a controlled substance and will be in their [place] report, and should a physician ask they should declare that. I gave them a chance to as questions, and all questions were answered. We have discussed that any supplements recomended have not undergone review or approval by the FDA and, therefore, have not been documented to be safe or effective to diagnose, treat, prevent, mitigate, or cure any condition or disease. This visit level of MDM is moderate. There are 2 or more chronic medical problems. Multiple unique test results are reviewed. multiple unique tests are ordered. Medication management with complex decison making considering the patients health status, compliance, laboratories, and the medication inte ractions. - DHEA-sulfate; Future - Estradiol; Future - Progesterone; Future - Testosterone; Future - DHEA-sulfate - Estradiol - Progesterone - Testosterone 2. Mood swings Suspect part of the perimenopausal or menopausal syndrome. Await labs. - DHEA-sulfate; Future - Estradiol; Future - Progesterone; Future - Testosterone; Future - DHEA-sulfate - Estradiol - Progesterone - Testosterone 3. Weight gain After discussing some options she would like to proceed and understand her insulin resistance and where she is at. - Glucose tolerance, 4 hours; Future - INSULIN RESPONSE TO GLUCOSE, 6 SPECIMENS; Future - Glucose tolerance, 4 hours - INSULIN RESPONSE TO GLUCOSE, 6 SPECIMENS 4. Sleep disorder Chronic problem I recommended she try melatonin and 5 HTP for now while we are trying to get the hormones and thyroid sorted. 5. Chronic fatigue Chronic problem, unstable, complex in nature with moderate decision making. I discussed with the patient or their client service representative, their fatigue issues. We discussed how this is almost always chronic and by definition must have been in place for 6 weeks in order to be considered chronic fatigue. We discussed how this is almost always a multifactorial problem. We discussed that the patient willalmost certainly need to make lifestyle changes including diet, sleep, exercise, and stress management. We further discussed how we will search for underlying disease processes and then support or treat them as appropriate. We discussed how we can frequently improve the symptoms, but may not be able to completely cure or resolve the issue. The patient was given a chance to ask questions and all questions were answered. - DHEA-sulfate; Future - Estradiol; Future - Progesterone; Future - Testosterone; Future - T3; Future - T3, reverse; Future - T3, free; Future - T4, free; Future - TSH; Future - Thyroid peroxidase antibody; Future - Thyroglobulin Antibody; Future - US thyroid; Future - Iron and TIBC; Future - Glucose tolerance, 4 hours; Future - INSULIN RESPONSE TO GLUCOSE, 6 SPECIMENS; Future - DHEA-sulfate - Estradiol - Progesterone - Testosterone - T3 - T3, reverse - T3, free - T4, free - TSH - Thyroid peroxidase antibody - Thyroglobulin Antibody - Iron and TIBC - Glucose tolerance, 4 hours - INSULIN RESPONSE TO GLUCOSE, 6 SPECIMENS 6. Hair loss As above - DHEA-sulfate; Future - Estradiol; Future - Progesterone; Future - Testosterone; Future - T3; Future - T3, reverse; Future - T3, free; Future - T4, free; Future - TSH; Future - Thyroid peroxidase antibody; Future - Thyroglobulin Antibody; Future - Iron and TIBC; Future - DHEA-sulfate - Estradiol - Progesterone - Testosterone - T3 - T3, reverse - T3, free - T4, free - TSH - Thyroid peroxidase antibody - Thyroglobulin Antibody - Iron and TIBC 7. Hypothyroidism, unspecified type (CMS/HCC) Further evaluation as noted 8. Non morbid obesity due to excess calories We will discuss further lifestyle changes after we have defined her endocrinology status. 9. Testosterone deficiency As noted with a sex hormones 10. Thyroid nodule (CMS/HCC) While this could be a small lymph node, I do think it is more likely a thyroid nodule and we shoulddo diagnostic imaging to further evaluate her anatomy. - T3; Future - T3, reverse; Future - T3, free; Future - T4, free; Future - TSH; Future - Thyroid peroxidase antibody; Future - Thyroglobulin Antibody; Future - US thyroid; Future - T3 - T3, reverse - T3, free - T4, free - TSH - Thyroid peroxidase antibody - Thyroglobulin Antibody 11. Hypoglycemia She describes reactive hypoglycemia. - Glucose tolerance, 4 hours; Future - INSULIN RESPONSE TO GLUCOSE, 6 SPECIMENS; Future - Glucose tolerance, 4 hours - INSULIN RESPONSE TO GLUCOSE, 6 SPECIMENS documented in this [facility]04-21-2025 Telephone encounter Note* Telephone Encounter - Ana Ortiz MD - 01/24/2025 3:42 PM EDT [facility] Miscellaneous Notes* Telephone Encounter - Ana Ortiz MD - 01/24/2025 3:42 PM EDT Pt has thrush documented in this [facility]03-30-2025 Hospital Discharge instructions Patient Education 01/02/2025 14:28:39 Asthma, Adult Asthma, Adult Asthma is a long-term (chronic) condition that causes recurrent episodes in which the lower airwaysin the lungs become tight and narrow. The narrowing is caused by inflammation and tightening of thesmooth muscle around the lower airways. Asthma episodes, [...] or hours later and can vary by person.Common signs and symptoms include: Wheezing. Trouble breathing (shortness of breath). Excessive nighttime or disability coordinator coughing. Chest tightness. Tiredness (fatigue) with [...] condition. Follow these instructions at home: Take jdou-uya-kqxlakd and prescription medicines only as told by [...] provider. Document Revised: 07/10/2022 Document Reviewed: 07/01/2022 [employer] Patient Education 2023 [employer] Follow Up Care 01/02/2025 13:00:08 With:MICHEAL BOWLING Address: [address] [place] [address] Business (1) When:Within 3 Day(s) [facility] 03-30-2025 NoteED Patient Education Note Pulmonary Medicine Asthma, Adult Asthma is a long-term (chronic) condition that causes recurrent episodes in which the lower airwaysin the lungs become tight and narrow. The narrowing is caused by inflammation and tightening of thesmooth muscle around the lower airways. Asthma episodes, [...] or hours later and can vary by person.Common signs and symptoms include: ??? Wheezing. ??? Trouble breathing (shortness of breath). ??? Excessive nighttime or disability coordinator coughing. ??? Chest tightness. ??? Tiredness [...] quickly relieve asthma symptoms. They are used asneeded and provide short-term relief. ??? Using other [...] Follow these instructions at home: ??? Take zcnt-ntm-zzasuos and prescription medicines only as told by [...] eating, drinking, or talking. (more content not included)...[facility]03-30-2025 Evaluation + Plan note Extracted from:Title:ED NoteAuthor:Monika Bellamy PA-C NDate:01/02/25 1. Asthma exacerbation (J45. 901: Unspecified asthma with (acute) exacerbation) Orders: albuterol-ipratropium, 3 mL, Soln-Inh, NEB, Once, Stop date 01/02/25 13:46:00 EDT, STAT, Start date01/02/25 13:46:00 EDT albuterol-ipratropium, 3 mL, Inhalation, QID Wheezing, 30 EA, Refill(s) 0, [id number], 167,cm, 01/02/25 13:04:00 EDT, Height/Length Dosing, 75, kg, [...] and is to return to the ER withany new or worsening symptoms. Patient given prescription for DuoNebs, she has a nebulizer machine at home. Patient voices understanding and is agreeable to plan [facility] 03-13-2025 Evaluation note* Author Debbie Mace [facility] 2024 1:41pmThe above note written by NAHUN Reynolds acting as human recorder, note dictated by Dr. Micheal Bowling. [facility] Work Phone: 1(313) 727-424402-20-2025 Radiology [facility] [place] [address] [place] [address] CT Scan Report Signed Patient: Brandon Long MR#: [id number] : 1975 Acct:[id number] Age/Sex: 48 / F ADM Date: 5 Loc: CT Room: Type: [facility] CLI Attending Dr: Micheal Bowling DO Copies to: [...] Sloan Rodgers M.D.11/25/2024 2:00 PM Dictation Location: [place] [address] Transcribed By: [facility] 11/25/24 1400 Dictated By: Sloan Rodgers MD 11/25/24 1346 Signed By: 11/25/24 1400 [facility] Work Phone: 1(963) 777-759101-16-2025 Evaluation note* Author [facility] 2024 2:47pmThe above note written by Taylor Morrison LPN, acting as human recorder, note dictated by Dr. Micheal Bowling. Author Debbie Mace [facility] 2024 1:41pmThe above note written by NAHUN Reynolds acting as human recorder, note dictated by Dr. Micheal Bowling. [facility] Work Phone: 1(817) 287-508101-16-2025 Evaluation note* Author [facility] 2024 1:47pmThe above note written by Taylor Morrison LPN, acting as human recorder, note dictated by Dr. Micheal Bowling. [facility] Work Phone: 1(255) 630-963112-04-2024 History of Present illness Narrative* Fior Lees MA - 09/08/2024 4:00 PM EST Images from the original note were not included. Maycol Clark, DO Obstetrics and Gynecology Brandon Mariana Mario 1975 09/08/24 220209 Yearly Wellness Exam Chief Complaint Patient presents [...] Laterality Date CHOLECYSTECTOMY 2014 COLPOSCOPY HYSTERECTOMY 12/2015 LAVH/BS INCONTINENCE SURGERY 2013 TVT-O SKIN LESION EXCISION [...] costovertebral angle tenderness, no obvious scoliosis/kyphosis. 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 documented in this encounterHedrick Medical [id number] Evaluation note* Author Debbie [facility]ace [facility] 20[facility] 3:12pmThe above note written by NAHUN Reynolds acting as human recorder, note dictated by Dr. Micheal Bowling. Author Taylor Morrison [facility] 2024 1:47pmThe above note written by Taylor Morrison LPN, acting as human recorder, note dictated by Dr. Micheal Bowling. [facility] Work Phone: 1(147) 861-161810-21-2024 History of Present illness Narrative* SARA Guallpa [...] - STREP DNA PROBE documented in this [facility]07-23-2024 Evaluation note* Author [facility] 2023 3:32pmThe above note written by Leanne GARNICA acting as human recorder, note dictated by Dr. Micheal Bowling. [facility] Work Phone: 1(490) 789-375705-28-2024 Evaluation note* Author [facility] 2023 3:51pmThe above note written by Leanne GARNICA acting as human recorder, note dictated by Dr. Micheal Bowling. [facility] Work Phone: [phone]) [phone] Evaluation note* Author [facility] 2023 3:51pmThe above note written by Leanne GARNICA acting as human recorder, note dictated by Dr. Micheal Bowling. Author [facility] 2023 3:32pmThe above note written by Leanne GARNICA acting as human recorder, note dictated by Dr. Micheal Bowling. [facility] Work Phone: 1(826) 788-562102-23-2024 Evaluation note* Author Micheal Bowling [facility]AuthoredFebruary 2023 4:49pm4 to 6 weeks, the ER if concerns,The above note written by Alejandra Peng LPN acting as human recorder, note dictated by Dr. Micheal Bowling [facility] Work Phone: 1(796) 741-782902-16-2024 Evaluation + Plan note Future Scheduled Tests Radiology* EC Stress Echo Complete, Transthoracic 11/21/23 [facility]01-04-2024 Evaluation note* Encounter Date Diagnosis Assessment Notes Treatment Notes Treatment Clinical Notes Oct, Chest pain, unspecified type (IC D-10 - R07.9) Patient is scheduled in a few weeks to have a consult with the supervisor shellfish farming Dr. Garcia in [place]. She is to get clearance to take adipex. We will follow up again in six weeks. Oct,Edema, unspecified type (ICD-10 - R60.9) Edema is mild upon examination. I advised the patient that the amlodipine would be contributing to the edema. We will continue to monitor. Oct,Hypertension (ICD-10 - I10) The patients blood pressure was WNL upon check in. The patient is having negative side effects of edema with taking the amlodipine. Oct,Hyperglycemia (ICD-10 - R73.9) The patient had been on wegovy in the past with good results in weight loss but insurance would notcover. I did provide samples of rybelsus for patient to trial. Advised the patient to continue monitoring diet and exercise. Oct,MI 31.0-31.9,adult (ICD-10 - Z68.31) Patient was provided with sample of rybelsus in hopes this will help the patient loss weight. We will conitnue to monitor. Oct,Other obesity (ICD-10 - E66.8) Encouraged to watch diet and increase exercise regimen; we will continue to monitor. [facility] Other [id number] Evaluation note* Encounter Date Diagnosis Assessment Notes Treatment Notes Treatment Clinical Notes Oct, Chest pain, unspecified type (IC D-10 - R07.9) Oct,Edema, unspecified type (ICD-10 - R60.9) Oct,Hypertension (ICD-10 - I10) The patients blood pressure was WNL upon check in. The patient is having negative side effects of edema with taking the amlodipine. Oct,Hyperglycemia (ICD-10 - R73.9) The patient had been on wegovy in the past with good results in weight loss but insurance would notcover. I did provide samples of Oct,yspnea on exertion (ICD-10 - R06.09) Oct,Lumbar back pain (ICD-10 - M54.50) Oct,MI 31.0-31.9,adult (ICD-10 - Z68.31) Oct,Other obesity (ICD-10 - E66.8) [facility] 12-01-2023 Evaluation note* Encounter Date Diagnosis Assessment Notes Treatment Notes Treatment Clinical Notes Sep, Chest pain (ICD-10 - R07.9) ER report reviewed with the patient. Chest XR was normal. The patient reports last stress test she had was about ten years ago. I do recommend the patient have a recheck stress test, even better yet have a consult with a supervisor shellfish farming first. Patient is agreeable and did request to see Dr. Castellanos. Sep,bnormal ECG (ICD-10 - R94.31) Noted right bundle branch block. Sep,Urinary frequency (ICD-10 - R35.0) In house urine was negative. Sep,MI 30.0-30.9,adult (ICD-10 - Z68.30) Patient presents in the office with a four pound weight gain from last check. The patient is being referred to cardiology for a work up. If everything is clear, we will discuss starting the patient on adipex again. Sep,Obesity, unspecified (ICD-10 - E66.9) Encouraged to watch diet and increase exercise regimen; we will continue to monitor. Sep,nxiety and depression (ICD-10 - F41.9) Patient is to continue with the venlafaxine. We will continue to monitor. Sep,Hypertension (ICD-10 - I10) The patients blood pressure was WNL upon check in. Patient is to continue with the above medicationregimen. Sep,ladder spasms (ICD-10 - N32.89) In house urine was negative. Sep,Mood swings (ICD-10 - F39) Patient reports only starting the above medication about two weeks ago and feels like she has not given it a chance yet to work. We will re-evaluate in one month. Sep,Hypokalemia (ICD-10 - E87.6) We will continue to montior. [facility] 10-19-2023 Evaluation note* Encounter Date Diagnosis Assessment Notes Treatment Notes Treatment Clinical Notes Jul, Left knee pain (ICD-10 - M25.562 ) Pt denies any pain with palpation, or weakness in her knee. I did recommend the above imagining to further investigate this. She is to take OTC pain reliever/ antiinflammatory medication as needed. Idid also recommend diclofenac gel OTC, and advised she needs to rub this in thoroughly for a minute. We will continue to monitor. Jul,Mood swings (ICD-10 - F39) Pt c/o brain fog with the Lexapro. I do agree she would benefit from another medication, and recommended the above. She was agreeable to this, therefore after risks and benefits were discussed, this was provided for her today. [facility] 10-04-2023 Evaluation note* Encounter Date Diagnosis Assessment Notes Treatment Notes Treatment Clinical Notes Jul, Hypertension (ICD-10 - I10) Jul,ERD (gastroesophageal reflux disease) (ICD-10 - K21.9) [facility] 10-02-2023 Evaluation note* Encounter Date Diagnosis Assessment Notes Treatment Notes Treatment Clinical Notes Jul, Hypertension (ICD-10 - I10) [facility] 10-01-2023 History general Narrative - Reported* Type Description Date Medical History 2007 pelvic exam done Medical Historyno mammogramMedical Historyno colonoscopyMedical Historyno stress testMedical Historymiscarriage july & august 2009Medical HistoryMRI Lumbar Spine 03-29-11; [facility]; 07-[facility]-11; [facility] HistoryGallbladder US; 07-22-11 [facility] Hixgujb74/1/12 Blood work CBC, CMP, LIpid, HGA1C (5.1) T4, TSH,Medical History04/2015 MammogramMedical Historyhysterectomy 12/17/15 Medical Xaaesrj4104/13/2018 Stress testMedical Nxdgpnx56/2020 EGD and Colonoscopy - Eeykmzf4403/19/2022 Covid +Surgical Historyright foot toe surgery - toe nailSurgical Historybladder slingSurgical Historygallbladder removed by Dr. Baker07/15/14Surgical Historyhysterectomy ( still has ovaries) - Dr. Aj01/04/16urgical HistoryGranulomas removed from perineal area09/13/2022[facility] 10-01-2023 History general Narrative - Reported* Type Description Date Medical History 2006 pelvic exam done Medical Historyno mammogramMedical Historyno colonoscopyMedical Historyno stress testMedical Historymiscarriage july & august 2009Medical HistoryMRI Lumbar Spine 03-29-11; [facility]UGI; [facility]; [facility] Fzmtovw89/1/12 Blood work CBC, CMP, LIpid, HGA1C (5.1) T4, TSH,Medical History04/2015 MammogramMedical Historyhysterectomy 12/17/15 Medical Pvqxipb1604/13/2018 Stress testMedical Yokktjw45/2020 EGD and Colonoscopy - Agbactl7403/19/2022 Covid +Medical Mfprpcb90/2023 EKG [place] ERSurgical Historyright foot toe surgery - toe nailSurgical History bladder slingSurgical Historygallbladder removed by Dr. Baker07/15/14 Surgical Historyhysterectomy ( still has ovaries) - Dr. 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 Jun,Hypertension (ICD-10 - I10) Blood pressure findings are elevated in the office today, patient reports her blood pressure findings are within normal limits at home. I did recheck her blood pressure myself with a findings of 154/56. I did complete and sign her paperwork following physical exam. Jun,Restless leg syndrome (ICD-10 - G25.81) Jun,ody mass index 29.0-29.9, adult (ICD-10 - Z68.29) The patient continues to have a consistent weight loss, she has been taking Wegovy off and on the past six months , currenlty not taking it due to cost. I did provide the patient with a sample of Ozempic and recommend she take .25 mg for eight weeks. Jun,Mood swings (ICD-10 - R45.86) The patient is [...] patient states she will look into a therapist/counselor at [facility]. Jun,Hyperglycemia (ICD-10 - R73.9) Blood work ordered , pt encourged to have this collected. Jun,Hyperlipidemia (ICD-10 - E78.5) Blood work ordered Jun,nxiety and depression (ICD-10 - F41.9) Pt is to continue with the above medication and we will continue to monitor. [facility] 09-07-2023 Evaluation note* Encounter Date Diagnosis Assessment Notes Treatment Notes Treatment Clinical Notes Jun, Body mass index [BMI] 30.0-30.9, adult (ICD-10 - Z68.30) [facility] 05-08-2023 Evaluation note* Encounter Date Diagnosis Assessment Notes Treatment Notes Treatment Clinical Notes February, Hypertension (ICD-10 - I10) [facility] 05-05-2023 Evaluation note* Encounter Date Diagnosis Assessment Notes Treatment Notes Treatment Clinical Notes February, Acute colitis (ICD-10 - K52.9) ER reports reviewed. I advised the patient to continue with the above medications. Patient reporting symptoms improving. We will continue to monitor. February,IBS (irritable bowel syndrome) (ICD-10 - K58.9) Patient is to continue with the above medication. February,MI 30.0-30.9,adult (ICD-10 - Z68.30) Patient presents in the office with a five pound weight loss from last visit. Is down a total of 19pounds. Unfortunately the patients would have to pay [...] again due to recent colitis flare up. February,Obesity (ICD-10 - E66.9) Encouraged to watch diet and increase exercise regimen; we will continue to monitor. February,Hypertension (ICD-10 - I10) Advised the patient to conitnue checking blood pressures at home. Patient is to continue with the above medication regimen. [facility] 05-02-2023 Hospital Discharge instructions Patient Education [...] if you start to feel better. Take ovyp-gcj-xpyezkq and prescription medicines only as told by [...] provider. Document Revised: 05/29/2021 Document Reviewed: 05/29/2021 [employer] Patient Education 2022 [email or web address] Follow Up Care 02/04/2023 18:51:23 With:MICHEAL BOWLING Address: [address] [place] [address] Business (1) When:02/07/2023 20:18:24 Comments:Take the antibiotics twice a day as prescribed till you have completed the course you can use the Bentyl, Zofran every 6-8 hours as needed for nausea and abdominal pain. Please follow-up with your primary care doctor in the next 2 to 3 days. Please return to the ED for any new or worsening symptoms. [facility]05-02-2023 Evaluation + Plan noteExtracted from: Title:ED NoteAuthor:Gale Gila ADate:02/04/23 Acute colitis (K52.9: Noninf ective gastroenteritis and colitis, unspecified) Orders: acetaminophen-hydrocodone, 1 EA, Tab, Oral, Once, Stop date 02/04/23 20:18:00 EDT, STAT, Start date02/04/23 20:18:00 EDT amoxicillin-clavulanate, 1 tab(s), Oral, q12hr [...] Panel Lipase Level UA With Cult Reflex [facility]04-14-2023 Evaluation note* Encounter Date Diagnosis Assessment Notes Treatment Notes Treatment Clinical Notes Jan, BMI 31.0-31.9,adult (ICD-10 - Z6 8.31) Pt did lose about 9 pounds so [...] their diet and increase their exercise regimen. Jan,Obesity (ICD-10 - E66.9) Jan,onstipation (ICD-10 - K59.00) I did provide samples of the above medication to the pt now. I encourged her to increase her fluid intake as well. We will continue to monitor. Jan,Seasonal allergic rhinitis (ICD-10 - J30.2) A kenalog injection was provided for pt today, as this has helped her in the past. Pt is to continue with the above medication and we will continue to monitor. Jan,IBS (irritable bowel syndrome) (ICD-10 - K58.9) Pt is to continue with the above medication and we will continue to monitor. Jan,Tachycardia (ICD-10 - R00.0) Discussion was had regarding the possible cause of this new onset tachycardia. She admits that she may be dehydrated, which I advised is very likely to cause this. I encouraged her to increase her water intake. We will continue to monitor. [facility] 03-28-2023 Evaluation note* Encounter Date Diagnosis Assessment Notes Treatment Notes Treatment Clinical Notes Dec, BMI 32.0-32.9,adult (ICD-10 - Z6 8.32) Dec,rediabetes (ICD-10 - R73.03) [facility] 03-24-2023 Evaluation note* Encounter Date Diagnosis Assessment Notes Treatment Notes Treatment Clinical Notes Dec, Anxiety and depression (ICD-10 - F41.9) Patient voiced improvement with the above medication therefore she is to continue as directed. Dec,MI 32.0-32.9,adult (ICD-10 - Z68.32) Patient has lost 4 pounds per our scale but 5 pounds per her scale after just two injections. I didprovide her with another sample for her to continue and instructed her to call and check for coverage on the above medication. Dec,Obesity (ICD-10 - E66.9) Encouraged patient to continue with diet and exercise. Dec,OVID-19 (ICD-10 - U07.1) Patient admits she is 14 days past her postiive test date for Covid just stating she was very tired. Dec,Right hand pain (ICD-10 - M79.641) Patient reports pain at the medial aspect of the right wrist. 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 I suggest she obtain an xray to further evaluate. Patient is agreeable. Order provided. [facility] 03-13-2023 Evaluation note* Encounter Date Diagnosis Assessment Notes Treatment Notes Treatment Clinical Notes Dec, Contact with and (ayala spected) exposure to other viral communicable diseases (ICD-10 - Z20.828) Dec,OVID-19 (ICD-10 - U07.1)Today you tested positive for the COVID virus. This mean you need to follow all CDC quarantine guidelines found at coronavirus.[place].gov. It is important to rest, increase fluids, and stay at home. Recommend contacting primary care provider and discussing best course of action if you have chronic health conditions. COVID POSITIVE education handout discharge instructions. given. [facility] 03-10-2023 Evaluation note* Encounter Date Diagnosis Assessment Notes Treatment Notes Treatment Clinical Notes Dec, Leg pain (ICD-10 - M79.606) Pt states since switching jobs, she has been seated during work hours. She reports using a box as afoot stool. Dec,Restless leg (ICD-10 - G25.81) Dec,MI 33.0-33.9,adult (ICD-10 - Z68.33) Pt can not [...] demonstrate for her how to self inject thismedication, and she voices understanding. Encouraged to watch diet and increase exercise regimen; we will continue to monitor. Dec,Obesity (ICD-10 - E66.9) Dec,Tingling of both feet (ICD-10 - R20.2) Dec,nxiety and depression (ICD-10 - F41.9) Pt voices a significant amout of stress due to situational stressors, like divorce and car trouble.I did recommend pt try the above medication, and she is agreeable to this. Risks and benefits discussed, and this was provided for her today. Dec,yshidrotic eczema (ICD-10 - L30.1) Upon inspection, pt's rash is eczema. I provided the above medication and advised pt to apply this to only her rash, and to wash her hands thoroughly after use. We will continue to monitor. [facility] Other 01-11-2023 Evaluation note* Encounter Date Diagnosis Assessment Notes Treatment Notes Treatment Clinical Notes Oct, Recurrent cough (ICD-10 - R05.8) [facility] Other 12-30-2022 Evaluation note* Encounter Date Diagnosis Assessment Notes Treatment Notes Treatment Clinical Notes Sep, Pain in right leg (ICD-10 - M79. 604) I advised the patient that the steroid regimen she is currently taking for cold should help with the bilateral leg pain. Sep,ain in left leg (ICD-10 - M79.605) We will continue to monitor. Sep,hest congestion (ICD-10 - R09.89) In house covid and flu test was negative. Patient was in the ER 09/18/22 and missed work 09/19/22 and 09/20/22. Since the patient did not have any PTO during the days missed, patient will need to useFMLA. Patient is to continue with taking the steriods twice a day. Sep,Hypertension (ICD-10 - I10) The patients blood pressure was slightly elevated upon check in. Patient is to continue with the above medication. Patient is to check blood pressures at home. [facility] Other 12-14-2022 NoteEXAMINATION: XR ABD FLAT UP_PA [...] Electronically authenticated by: LUPE ONTIVEROS Date: 2022-09-18 09:27[facility]12-09-2022 Hospital Discharge instructions Additional Instructions DISCHARGE [...] 4 weeks. -The office phone number is [[phone]]. [ ][facility] Work Phone: [phone] Evaluation note* Encounter Date Diagnosis Assessment Notes Treatment Notes Treatment Clinical Notes Jul, BMI 34.0-34.9,adult (ICD-10 - Z6 8.34) I did advise the steroids the pt was recently on may be attributing to her weight gain. Encouraged to watch diet and increase exercise regimen; we will continue to monitor. Jul,Hypertension (ICD-10 - I10) Pt denies monitoring her blood pressure at home. She states she normally takes her medicaitons at 8am, so her blood pressure this morning may be elevated from not having taken her medications yet. I encouraged pt to monitor her blood pressure at home and continue taking her medications regularly. [facility] Other 10-01-2022 History general Narrative - Reported* Type Description Date Medical History 2007 pelvic exam done Medical Historyno mammogramMedical Historyno colonoscopyMedical Historyno stress testMedical Historymiscarriage july & august 2009Medical HistoryMRI Lumbar Spine 03-29-11; FRMedical HistoryUGI; 07-22-11; FRMedical HistoryGallbladder US; 07-22-11 [facility] Affueks07/1/12 Blood work CBC, CMP, LIpid, HGA1C (5.1) T4, TSH,Medical History04/2015 MammogramMedical Historyhysterectomy 12/17/15 Medical Ovxepbl6104/13/2018 Stress testMedical Gifskdo71/2020 EGD and Colonoscopy - Tgcjknv7703/19/2022 Covid +Surgical Historyright foot toe surgery - toe nailSurgical Historybladder slingSurgical Historygallbladder removed by Dr. Baker07/15/14Surgical Historyhysterectomy ( still has ovaries) - Dr. Aj01/04/16[facility] [employer] Other 10-01-2022 History general Narrative - Reported* Type Description Date Medical History 2007 pelvic exam done Medical Historyno mammogramMedical Historyno colonoscopyMedical Historyno stress testMedical Historymiscarriage july & august 2009Medical HistoryMRI Lumbar Spine 03-29-11; [facility]; 07-22-11; [facility] HistoryGallbladder US; 07-22-11 [facility] Zxypjil57/1/12 Blood work CBC, CMP, LIpid, HGA1C (5.1) T4, TSH,Medical History04/2015 MammogramMedical Historyhysterectomy 12/17/15 Medical Oatqish8804/13/2018 Stress testMedical Jwxldip12/2020 EGD and Colonoscopy - Swrothj3203/19/2022 Covid +Surgical Historyright foot toe surgery - toe nailSurgical Historybladder slingSurgical Historygallbladder removed by Dr. Baker07/15/14Surgical Historyhysterectomy ( still has ovaries) - Dr. Aj01/04/16urgical HistoryGranulomas removed from perineal area09/13/2022Hospitalization HistoryChildbirth [facility] Other 09-22-2022 Evaluation note* Encounter Date Diagnosis Assessment Notes Treatment Notes Treatment Clinical Notes Jun, Hypertension (ICD-10 - I10) [place] [facility] Other 08-18-2022 Evaluation note* Encounter Date Diagnosis Assessment Notes Treatment Notes Treatment Clinical Notes May, Polymyalgia (ICD-10 - M35.3) Reviewed blood work results with the patient, CRP and ESR continues to be slightly elevated but theANA is negative. We will continue to monitor. May,ersistent cough (ICD-10 - R05.3) I did provide samples of trelegy inplace of the breztri. Since the patient had a possible side effect of the prednisone, we will try the medrol. I will advised two medrol dose packs and advised her to take the second pack back and forth from the first pack. We will continue to monitor. May,Hypertension (ICD-10 - I10) The patients blood pressure was WNL upon check in. Therefore she is to continue with the above medication regimen. May,Lower extremity edema (ICD-10 - R60.0) We will continue to monitor. May,kin tag (ICD-10 - L91.8) Noted of right upper medial arm measuring 0.5cm, right axilla 3mm and right superpraclavicular 3mm.I will remove these by shave biopsy in the near future. These have changed in size and patient reports these being bothersome. May,Lumbar pain (ICD-10 - M54.50) OMT provided in the office with good movement and improvement. May,omatic dysfunction of hip region (ICD-10 - M99.05) OMT provided in the office. May,omatic dysfunction of lumbar region (ICD-10 - M99.03) OMT provided in the office. May,omatic dysfunction of rib (ICD-10 - M99.08) OMT provided in the office. 18 Aug, 2022Somatic dysfunction of spine, thoracic (ICD-10 - M99.02) OMT provided in the office. [facility] Other 08-09-2022 Evaluation note* Encounter Date Diagnosis Assessment Notes Treatment Notes Treatment Clinical Notes May, Polymyalgia (ICD-10 - M35.3) Patient was recently in the [place] ER, she reports she woke up in [...] until we obtain the blood work and x- ray results. She voicedunderstanding. May,ersistent cough (ICD-10 - R05.3) Patient reports her cough is improved. 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 May,Hypertension (ICD-10 - I10) Blood pressure upon check in is WNL. She is to continue on the above medications. [facility] Other 08-01-2022 Evaluation note* Encounter Date Diagnosis Assessment Notes Treatment Notes Treatment Clinical Notes May, Persistent cough (ICD-10 - R05.3 ) Patient has a chronic residual cough s/p covid from March. She has been to see pulmonology but did not see physician. Did see UNDERCOLLAR MAKER in office. . The Breztri and nebulizer treatment seems to work the best. Patient states that pulmonary advised her this is more than likely related to Covid infection. CXRand spirometery reviewed and were within normal limits. Lungs auscultated in office today. At this time I want her to stay on the Breztri. Samples will be provided as long as I have them available togive. I want to keep her on the prednisone too at the higher dose with a slower taper. Patient is in agreement to this. I do want her to have hycodan cough syrup 120 cc. May,Hypertension (ICD-10 - I10) Blood pressure controlled at the present time. Patient is to continue with current meds and watch sodium in diet. May,History of COVID-19 (ICD-10 - Z86.16) Covid infection 03/2022. Did develop a cough later in the month of April. Has been evaluated by pulmonary office and did see UNDERCOLLAR MAKER, not the physician. [facility] Other 07-11-2022 Evaluation note* Encounter Date Diagnosis Assessment Notes Treatment Notes Treatment Clinical Notes Apr, Shortness of breath (ICD-10 - R0 6.02) Apr,History of COVID-19 (ICD-10 - Z86.16) [facility] Other 05-05-2022 Evaluation note* Encounter Date Diagnosis Assessment Notes Treatment Notes Treatment Clinical Notes February, Hypertension (ICD-10 - I10) [facility] Other 05-03-2022 Evaluation note* Encounter Date Diagnosis Assessment Notes Treatment Notes Treatment Clinical Notes February, Insomnia (ICD-10 - G47.00) Patient is to continue with the above medication as needed. February,easonal allergic rhinitis (ICD-10 - J30.2) Patient is to continue with the above medication. February,Hypertension (ICD-10 - I10) The patients blood pressure was elevated upon check in. I did recheck blood pressure myself with the same reading as check in. Patient does admit she has not been taking 5mg amldopine in the morning like she is supposed to be. Strongly encouraged patient to check blood pressures at home and keep a log. We will continue to monitor. February,ladder spasms (ICD-10 - N32.89) Patient is to continue to follow with Dr. Clark as scheduled. [facility] Other 04-26-2022 Evaluation note* Encounter Date Diagnosis Assessment Notes Treatment Notes Treatment Clinical Notes Jan, Hypertension (ICD-10 - I10) [facility] Other 03-01-2022 Evaluation note* Encounter Date Diagnosis Assessment Notes Treatment Notes Treatment Clinical Notes Dec, Difficulty sleeping (ICD-10 - G4 7.9) Patient reports taking the above medication once and noticed getting a spasm in the nack of the neck. I discussed with patient I have not heard of this being a side effect of the medication. I advised patient to try the above medication again and if this occurs we will discuss changing the medication. Dec,leurisy (ICD-10 - R09.1) Patient is to continue with the above inhaler as needed. Refill provided. Dec,Hypertension (ICD-10 - I10) The patients blood pressure was elevated upon check in. Patient is to continue with the above medication regimen and encouraged patient to monitor blood pressures at home. Dec,Lumbar pain (ICD-10 - M54.50) Refill provided of the above. Dec,easonal allergic rhinitis (ICD-10 - J30.2) I did prescribe the above medication. Kenalog administered in office today. [facility] Other 02-02-2022 Evaluation note* Encounter Date Diagnosis Assessment Notes Treatment Notes Treatment Clinical Notes Nov, Lumbar pain (ICD-10 - M54.50) The patient does have left lower lumbar pain that radiates down her bilateral legs. She has noticedan increase in her urinary frequency but upon [...] improvement noted. We will continue to monitor. Nov,Hypertension (ICD-10 - I10) Upon check in, the patient's blood pressure is elevated at 145/95. She does admit she has not takenher medications yet today but gets readings of around 130's-mid to high 80's at home. She does continue to have issues with her marriage causing quite a bit of stress in her life currently. She was encouraged to continue on the above medications. We will continue to monitor. Nov,ifficulty sleeping (ICD-10 - G47.9) The patient reports [...] Medication e-scribed. We will continue to monitor. Nov,tress at home (ICD-10 - F43.9) The patient states her marriage is still strained but neither are wanting to make a decision to change their circumstances. Nov,omatic dysfunction of cervical region (ICD-10 - M99.01) Nov,omatic dysfunction of thoracic region (ICD-10 - M99.02) Nov,omatic dysfunction of rib cage region (ICD-10 - M99.08) Nov,omatic dysfunction of lumbar region (ICD-10 - M99.03) Nov,omatic dysfunction of sacral region (ICD-10 - M99.04) [facility] Other 12-18-2021 Evaluation note* Encounter Date Diagnosis [...] reviewed and she is in agreement. HCTZ e- scribed. Encouraged the patient to continue to monitor her blood pressure at home. We will continue to monitor. Sep,nxiety and depression (ICD-10 - F41.9) The patient [...] in agreement. We will continue to monitor. [facility] Other 11-01-2009 History general Narrative - Reported* Type Description Date Medical History 2007 pelvic exam done Medical Historyno mammogramMedical Historyno colonoscopyMedical Historyno stress testMedical Historymiscarriage july & august 2009Medical HistoryMRI Lumbar Spine 03-29-11; FRMCMedical HistoryUGI; 07-22-11; FRMedical HistoryGallbladder US; 07-22-11 FRMedical Mawkgno68/1/12 Blood work CBC, CMP, LIpid, HGA1C (5.1) T4, TSH,Medical History04/2015 MammogramMedical Historyhysterectomy 12/17/15 Medical Xmhtweo8004/13/2018 Stress testMedical Ivfvyho97/2020 EGD and Colonoscopy - Historyright foot toe surgery - toe nailSurgical History bladder slingSurgical Historygallbladder removed by Dr. Baker07/15/14 Surgical Historyhysterectomy ( still has ovaries) - Dr. Aj01/04/16 Hospitalization HistoryChildbirth [facility] Other 11-01-2009 History general Narrative - Reported* Type Description Date Medical History 2007 pelvic exam done Medical Historyno mammogramMedical Historyno colonoscopyMedical Historyno stress testMedical Historymiscarriage july & august 2009Medical HistoryMRI Lumbar Spine 03-29-11; [facility] History[facility]; 07-22-11; FRMedical HistoryGallbladder US; 07-22-11 FRMedical Mcxkhdt11/1/12 Blood work CBC, CMP, LIpid, HGA1C (5.1) T4, TSH,Medical History04/2015 MammogramMedical Historyhysterectomy 12/17/15 Medical Zrrizzq1404/13/2018 Stress testMedical Yocresr77/2020 EGD and Colonoscopy - Mjhjjkm3403/19/2022 Covid +Surgical Historyright foot toe surgery - toe nailSurgical Historybladder slingSurgical Historygallbladder removed by Dr. Baker07/15/14Surgical Historyhysterectomy ( still has ovaries) - Dr. Aj01/04/16[facility] [employer] Other [phone] History general Narrative - Reported* Type Description Date Medical History 2006 pelvic exam done Medical Historyno mammogramMedical Historyno colonoscopyMedical Historyno stress testMedical Historymiscarriage july & august 2009Medical HistoryMRI Lumbar Spine 03-29-11; [facility] HistoryUGI; 07-22-11; [facility] HistoryGallbladder US; 07-22-11 [facility] Ycyjhgm43/1/12 Blood work CBC, CMP, LIpid, HGA1C (5.1) T4, TSH,Medical History04/2015 MammogramMedical Historyhysterectomy 12/17/15 Medical Ndfwzov8204/13/2018 Stress testMedical Kxjwcnm85/2020 [facility] Covid +Surgical Historyright foot toe surgery - toe nailSurgical Historybladder slingSurgical Historygallbladder removed by Dr. Baker07/15/14Surgical Historyhysterectomy ( still has ovaries) - Dr. Aj01/04/16urgical HistoryGranulomas removed from perineal area09/13/2022[facility] [employer] Other Evaluation + Plan note Future Appointments Appointment Date:12/26/2023 02:45:00 PM Scheduled Provider:Aly Castellanos MD [facility] Type:Cardiology Follow Up (FT) Future Scheduled Tests Radiology* EC Stress Echo Complete w/ Contrast 10/30/23 * Echo Transthoracic [facility]23 [facility] Future Appointments Appointment Date:12/16/2023 01:00:00 PM Scheduled Provider: [facility] Appoint[facility] Type:CV Echo Stress (FT) Appointment Date:12/26/2023 02:45:00 PM Scheduled Provider:Aly Castellanos MD [facility] App[facility] Type:Cardiology Follow Up (FT) Future Scheduled Tests Radiology* EC Stress Echo Complete, Transthoracic 11/21/23 * EC Stress Echo Complete w/ Contrast 12/16/23 [facility] Future Appointments Appointment Date:12/26/2023 02:45:00 PM Scheduled Provider:Aly Castellanos MD Location[facility] [place] Appointment Type:Cardiology Follow Up (FT) Future Scheduled Tests Radiology* EC Stress Echo Complete, Transthoracic 11/21/23 [facility] HospitalEvaluation noteNo InformationNort [facility] Other Evaluation noteNo assessment information available [facility] Work Phone: Evaluation note* Author Alejandra Peng [facility] 20[facility] 11:49amSooner if needed, the ER if concerns,The above note written by Alejandra Peng LPN acting as human recorder, note dictated by Dr. Micheal Bowling [facility] Work Phone: Evaluation note* Author Leanne Gamino [facility] 2023 3:51pmThe above note written by Leanne GARNICA acting as human recorder, note dictated by Dr. Micheal Bowling. [facility] Work Phone: evaluation note* Diagnosis Upper respiratory tract infection, unspecified type- Primary Pharyngitis, unspecified etiology documented in this encounter [facility]* Author Debbie Mace [facility] HospitalNov[facility] 2023 3:12pmThe above note written by NAHUN Reynolds acting as human recorder, note dictated by Dr. Micheal Bowling. [facility] Work Phone: Evaluation note* Diagnosis Encounter for gynecological examination without abnormal finding Encounter for Papanicolaou smear of vagina Breast cancer screening by mammogram documented in this encounter [facility]* Diagnosis Thrush- Primary Candidiasis of mouth documented in this encounter [facility]* Diagnosis Hot flashes- Primary Mood swings Other specified episodic mood disorder Weight gain Other symptoms concerning nutrition, metabolism, and development Sleep disorder Unspecified sleep disturbance Chronic fatigue Other malaise and fatigue Hair loss Unspecified alopecia Hypothyroidism, unspecified type (CMS/HCC) Non morbid obesity due to excess calories Testosterone deficiency Other testicular hypofunction Thyroid nodule (CMS/HCC) Nontoxic uninodular goiter Hypoglycemia Hypoglycemia, unspecified documented in this encounter [facility]* Diagnosis Insulin resistance Other abnormal glucose Reactive hypoglycemia Hypoglycemia, unspecified Obesity (BMI 30-39.9) documented in this encounter [facility]Evaluation note* Diagnosis ESS (euthyroid sick syndrome) Euthyroid sick syndrome Chronic fatigue Other malaise and fatigue Non morbid obesity due to excess calories [facility] encounter [facility]* Diagnosis Acute cough- Primary Bronchitis Bronchitis, not specified as acute or chronic Eczema, dyshidrotic Dyshidrosis documented in this encounter [facility]Evaluation [facility]* Diagnosis Bilateral hearing loss, unspecified hearing loss type- Primary documented in this encounter [facility] HealthcareEvaluation note* Author Leanne Gamino [facility] HospitalAuthoredSeptember 2024 4:12pmThe above note written by Leanne GARNICA acting as human recorder, note dictated by Dr. Micheal Bowling. [facility] Work Phone: Hospital course Narrative No data available for this section [facility] Dis[facility] instructions No data available for this section [facility] HospitalProgress note No data available for this section [facility] HospitalReason for referral (narrative)No reason for referral information availableSelect [facility] Work Phone: Summary Purpose Family History No Family History Records Found Relationship Condition Age at Onset Recorded Date/T can Not Specified Cerebrovascular accident (CVA) Unknown fatherHeart diseaseUnknownfatherDiabetes mellitusUnknownfatherHypertension Unknown Relationship Condition Age at Onset Recorded Date/T can Not Specified Cerebrovascular accident (CVA) Unknown fatherHeart diseaseUnknownfatherDiabetes mellitusUnknownfatherHypertension UnknownDiabetes mellitusUnknowngrandparentDeceasedUnknowngrandparentHypertension UnknowngrandparentMyocardial infarctionUnknownNot SpecifiedType 2 diabetes mellitusUnknown Relationship Condition Age at Onset Recorded Date/T can mother Cerebrovascular accident (CVA) Unknown fatherHeart diseaseUnknownfatherDiabetes mellitusUnknownfatherHypertension UnknownDiabetes mellitusUnknowngrandparentDeceasedUnknowngrandparentHypertension UnknowngrandparentMyocardial infarctionUnknownmotherType 2 diabetes mellitus Unknown Relationship Condition Age at Onset Recorded Date/T can mother Cerebrovascular accident (CVA) Unknown Diabetes mellitusUnknownType 2 diabetes mellitusUnknownfatherHeart disease UnknownHypertensionUnknowngrandparentHypertensionUnknowngrandparentMyocardial infarctionUnknown Advance Directives No Advanced Directives Records Found [...] (E66.9) Diagnosis 4 Hypertension (I10) Referral Organization [facility] Referring Provider First Name Micheal Referring Provider Last Name Dash Referring Provider Specialty Family Prac amanda Referred Organization [facility] Referred Provider Aly Castellanos Referred Address [address] [place] [id number] Referred Provider Specialty Cardiology Referral Priority Routine General Notes Andria Reilly 11:25:03 AM >received today, holding referral for note to be locked Andria Reilly 09/08/2023 12:53:36 PM >note is not locked, still holding referral Andria Reilly 09/09/2023 11:43:04 AM >not locked yet Reason CANCELLED consult and treat Diagnosis 1 Recurrent cough (R05 .8) Referral Organization [facility] Referring Provider First Name Micheal Referring Provider Last Name Dash Referring Provider Specialty Family Prac amanda Referred Organization [facility] Pulmonary Dise ase Referred Provider Macey Floyd Referred Address [address] [address],[place], [place],[address] Referred Provider Specialty Nurse Adrien herrera Referral Priority Routine [facility] 10:36:46 AM >Received today and [facility]P [facility] 10/17/2022 01:25:39 PM >Patient has been scheduled [facility] 11/07/2022 07:45:54 AM >Patient cancelled appt. Stating she will call back to reschedule. Will give her a week and if she is not rescheduled then I will let Dr. Bowling know and give heranother week to reschedule [facility] 11/07/2022 07:49:27 AM >Per incoming referral. [facility]. Telephone encounter was sent Reason consult and treat; S OB, Hx of COVID PFT and Chest Xray ordered Diagnosis 1 Shortness of breath (R06.02) Diagnosis 2 History of COVID-19 (Z86.16) Referral Organization [facility] Referring Provider First Name Micheal Referring Provider Last Name Dash Referring Provider Specialty Family Chery patel [facility] Referred Provider Lavinia Lieberman Referred Address ,[place], [place],[address] Referred Provider Specialty Pulmonary Di seases Referral Priority Routine Chief Complaint and Reason for Visit Chief Complaint M35.3 polymyalgia Chief Complaint Sebaceous Cyst Chief Complaint E78.5 R45.86 Chief Complaint Er Recheck [employer]/ Chest Pain M25.561 M25.562 Oct Appt F/U HGB [id number] for VisitChest pain Hyperglycemia Hypertension IBS (irritable bowel syndrome) Obesity (BMI 30-39.9) Chief Complaint F/U HGB A1C Amb Documentation Amb Documentation r/s January AptReason for VisitChest pain Hyperglycemia Hypertension IBS (irritable bowel syndrome) Obesity (BMI 30-39.9) BMI 32.0-32.9,adult Obesity Trochanteric bursitis of right hip Chief Complaint Amb Documentation Amb Documentation r/s January Apt adipexReason for VisitBMI 32.0-32.9,adult Obesity Trochanteric bursitis of right hip Obesity Dysuria BMI 31.0-31.9,adult Chief Complaint Amb Documentation r/s Bertha Apt adipex Amb Documentation r63.5 r53.83 e03.9Reason for VisitBMI 32.0-32.9,adult Obesity Trochanteric bursitis of right hip Obesity Dysuria BMI 31.0-31.9,adult Chief Complaint r/s January Apt adipex Amb Documentation r63.5 r53.83 e03.9 persisent coughReason for VisitBMI 32.0-32.9,adult Obesity Trochanteric bursitis of right hip Obesity Dysuria BMI 31.0-31.9,adult Shortness of breath Productive cough Chief Complaint r63.5 r53.83 e03.9 persisent coughReason for VisitShortness of breath Productive cough Sore throat Chief [...] bursitis of right hip Novem 2023 1:29pm Chief Complaint Admit Date omt- neck August 26, 2024 1:29pm r/s 5 week f/u October 21, 2024 1 :26pm Reason for Visit Admit Date Cervical spine pain August 26, 2024 1:29pm Pain in right lumbar region of back Auge 2023 1:29pm Somatic dysfunction of lumbar region [...] 2024 1:26pm Trochanteric bursitis of right hip Octua 2024 1:26pm Nausea October 21, 2024 1 :26pm Chief Complaint Admit Date omt- neck August 26, 2024 1:29pm r/s 5 week f/u October 21, 2024 1 :26pm e78.5 e03.9 r73.9 October 28, 2024 7 :23am Reason for Visit Admit Date Cervical spine pain August 26, 2024 1:29pm Pain in right lumbar region of back [facility] 1:29pm Somatic dysfunction of lumbar region Aug [...] Somatic dysfunction of rib cage region N ov2023 1:29pm Somatic dysfunction of sacral region Aug 1:29pm Somatic dysfunction of spine, cervical N ov2023 1:29pm Somatic dysfunction of thoracic region N ov2023 1:29pm Trochanteric bursitis of right hip Novem lisa 2023 1:29pm Anxiety and depression October 21 [...] :26pm Somatic dysfunction of lumbar region [facility] 2024 1:26pm Somatic dysfunction of rib cage region J anuary 2024 1:26pm Somatic dysfunction of sacral region Oct 2024 1:26pm Somatic dysfunction of spine, cervical J anuary 2024 1:26pm Somatic dysfunction of thoracic region J anuary 2024 1:26pm Trochanteric bursitis of right hip 2024 1:26pm Elevated C-reactive protein October 1:26pm Nausea October 21, 2024 1 :26pm Elevated C-reactive protein (CRP) 2024 12:59pm Elevated lipoprotein A level November 12:59pm Family history of brain aneurysm r 2024 12:59pm Gastroenteritis November 11, 2024 1 [...] 1:26pm Somatic dysfunction of sacral region Oct 2024 1:26pm Somatic dysfunction of spine, cervical [...] 1:26pm Somatic dysfunction of rib cage region anuary 2024 1:26pm Somatic dysfunction of sacral region Oct 1:26pm Somatic dysfunction of spine, cervical J anuary 2024 1:26pm [facility] Trochanteric bursitis of right hip 2024 1:26pm Elevated C-reactive protein October 1:26pm Nausea October 21, 2024 1 :26pm Elevated C-reactive protein (CRP) 2024 12:59pm Elevated lipoprotein A level November 12:59pm Family history of brain aneurysm r 2024 12:59pm Gastroenteritis November 11, 2024 1 2:59pm Intractable headache November 11, 2024 12:59pm Anxiety and depression December 16, 2024 1:27pm Intractable headache December 16, 2024 1: 27pm Sinusitis December 16, 2024 1:2 7pm Asthma exacerbation January 05, 2025 7:30 am Chief Complaint Admit Date pressure headaches November 11, 2024 1 2:59pm R51.9 Z82.49 R79.82 November 25, 2024 12:07pm 6 week f/u December 16, 2024 1:2 7pm solu medrol 125 mg per bpk January 05 7:30am 6 week f/u January 27, 2025 2:1 3pm Reason for Visit Admit Date Elevated C-reactive protein (CRP) 2024 12:59pm Elevated lipoprotein A level November 12:59pm Family history of brain aneurysm 2024 12:59pm Gastroenteritis November 11, 2024 1 2:59pm Intractable headache November 11, 2024 12:59pm Anxiety and depression December 16, 2024 1:27pm Intractable headache December 16, 2024 1: 27pm Sinusitis December 16, 2024 1:2 7pm Asthma exacerbation January 05, 2025 7:30 am Asthma exacerbation January 27, 2025 2:1 3pm Lower extremity edema January 27, 2025 2 :13pm Neoplasm of uncertain behavior January 2:13pm Seasonal allergic reaction January 27, 2 025 2:13pm Skin tags, multiple acquired January 27, 2025 2:13pm Chief Complaint Admit Date 6 week f/u December 16, 2024 1:2 7pm solu medrol 125 mg per bpk January 05 7:30am 6 week f/u January 27, 2025 2:1 3pm Swab-sore throat,cough 5 days,-covid nolan t-whitesuv March 03, 2025 3:02pm Reason for Visit Admit Date Anxiety and depression December 16, 2024 1:27pm Intractable headache December 16, 2024 1: 27pm Sinusitis December 16, 2024 1:2 7pm Asthma exacerbation January 05, 2025 7:30 am Asthma exacerbation January 27, 2025 2:1 3pm Lower extremity edema January 27, 2025 2 :13pm Neoplasm of uncertain behavior January 2:13pm Seasonal allergic reaction January 27, 2 025 2:13pm Skin tags, multiple acquired January 27, 2025 2:13pm Acute cough March 03, 2025 3:02p m Sore throat March 03, 2025 3:02p m Chief Complaint Admit Date shave and follow up June 30, 2025 3:43pm Reason for Visit Admit Date Skin tags, multiple acquired June 072024 3:43pm Neoplasm of uncertain behavior of skin S eptember 2024 3:43pm Insulin resistance June 30, 2025 3:43pm Additional Source Comments INFORMATION SOURCE (unrecogn ized section and content) DATE CREATED AUTHOR 03/31/2018 [facility] DATE CREATED AUTHOR AUTHOR'S ORGANIZ ATION 04/15/2018 [facility] DATE CREATED AUTHOR AUTHOR'S ORGANIZ ATION 04/15/2018 [facility] DATE CREATED AUTHOR AUTHOR'S ORGANIZ ATION 11/02/2022 [facility] DATE CREATED AUTHOR AUTHOR'S ORGANIZ ATION 01/29/2023 [facility] DATE CREATED AUTHOR AUTHOR'S ORGANIZ ATION 03/17/2025 [facility] DATE CREATED AUTHOR AUTHOR'S ORGANIZ ATION 03/24/2025 [facility] DATE CREATED AUTHOR AUTHOR'S ORGANIZ ATION 07/01/2025 [facility] EPIC DATE CREATED AUTHOR AUTHOR'S ORGANIZ ATION 07/09/2025 [facility] REASON FOR VISIT (unrecogniz ed section and content) ReasonCommentsGynecologic ExamLMP: JULIUS BS 2016HRT: NoneLast pap 08-13-23 neg.Last mammogram 01-12-24 [facility]. Denies breast, urinary, or bowel concerns.Reason CommentsHormonesReasonCommentsResultsReasonCommentsHypothyroidism Care Teams (unrecognized sec tion and content) [...] Provider Active Sta rt: March 22, 2024 Debbie Mace , RMAAttending ProviderActiveStart: March 22, 2024 Team Status: Inactive Member [...] Provider Active Sta rt: December 08, 2023 Debbie Mace , RMAAttending ProviderActiveStart: December 08, 2023 Team Status: Active Member Role Status Dates Micheal Bowling DO Primary Care Provider Active Sta rt: January 20, 2024 Debbie Mace RMAAttenrosalie ProviderActiveStart: January 20, 2024 Team Status: Inactive Member Role Status Dates Micheal Bowling DO Primary Care Provider, Attending Provi shona Active Team Status: Inactive Member Role Status Dates Micheal Bowling DO Primary Care Provider Active Maycol Clark DOAttending ProviderActive Team Status: Inactive Member Role Status Dates Micheal Bowling DO Attending Provider Active Start: September 05, 2023 End: September 05, 2023 Team Status: Inactive Member Role Status Dates Micheal Bowling DO Primary Care Provider Active Sta rt: September 05, 2023 End: September 05, 2023Lamont Long DOAttending ProviderActiveStart: September 05, 2023 End: September 05, 2023 [...] Start: June 22, 2024 End: June 22, 2024Team MemberRelationshipSpecialtyStart DateEnd Date Micheal Bowling MD [address] [place] [phone] [facility]08/13/23 Team Status: Inactive Member Role Status Dates Micheal Bowling DO Primary Care Provide r, Attending Provider Active Start: August 26, 2024 End: August 26, 2024Team MemberRelationshipSpecialtyStart DateEnd Date Micheal Bowling MD [address] [place] [phone] [facility]08/13/23 Team Status: Inactive Member Role Status Dates [...] Start: January 05, 2025 End: January 05, 2025Team MemberRelationshipSpecialtyStart DateEnd Date Micheal Bowling DO [facility]08/13/23 Team Status: Inactive Member Role Status Dates Micheal Bowling DO Primary Care Provide r, Attending Provider Active Start: January 27, 2025 End: January 27, 2025Team MemberRelationshipSpecialtyStart DateEnd Date Micheal Bowling DO [facility]08/13/23 Team Status: Inactive Member Role Status Dates Micheal Bowling DO Primary Care Provide r, Attending Provider Active Start: March 03, 2025 End: March 03, 2025Team MemberRelationshipSpecialtyStart DateEnd Date Micheal Bowling DO PCP - Vcwraym74/8/23Team MemberRelationshipSpecialtyStart DateEnd Date Micheal Bowling DO PCP - Fbxaurj98/8/23Team MemberRelationshipSpecialtyStart DateEnd Date Micheal Bowling DO PCP - Sstursd93/8/23Te MemberRelationshipSpecialtyStart DateEnd Date Micheal Bowling DO PCP - Wtgjrdk88/8/23Team MemberRelationshipSpecialtyStart DateEnd Date Micheal Bowling DO PCP - Hicxkez03/8/23Te MemberRelationshipSpecialtyStart DateEnd Date Micheal Bowling DO [address] [place] [address] PCP - Ypakrpm89/8/23Team MemberRelationshipSpecialtyStart DateEnd Date Micheal Bowling DO [address] [place] [address] PCP - Erhylkg74/8/23Team MemberRelationshipSpecialtyStart DateEnd Date Micheal Bowling DO [address] [place] [address] PCP - Hxtqyeo36/8/23 Team Status: Inactive Member Role Status Dates Micheal Bowling DO Primary Care Provider Active Sta rt: June 30, 2025 End: June 30aly Bowling DOAttending ProviderActiveStart: June 30, 2025 End: June 30, 2025 Goals (unrecognized section and content) Goals [...] BE BASED ON THE PRIMARY CLINICAL RECORDS. [employer] provides no warranty or guarantee of the accuracy or completeness of information in this document.
--- NOTE | 2025-07-27 07:53 | ED.GENADUL1 ---
HPI HPI - General Adult General Chief complaint: Chest Pain Stated complaint: ANXIETY HEADACHE BACK PAIN Time Seen by Provider: 07/27/25 07:36 Source: patient Mode of arrival: walk-in Limitations: no limitations History of Present Illness HPI narrative: 49-year-old female presented to the emergency department for chest pain. It is a heartburn-like sensation on the left side of her chest and she had it starting at 2:00 in the morning. She has been under a lot of stress recently. She states that she has had heart attack symptoms in the past and was told that it was stress. No trauma or fever or productive cough. Related Data Home Medications ?Medication ?Instructions ?Recorded ?Confirmed olmesartan 40 mg tablet 40 mg PO DAILY 07/11/23 07/27/25 omeprazole 40 mg capsule,delayed 40 mg PO DAILY 07/11/23 07/27/25 release ropinirole 1 mg tablet 1 mg PO BEDTIME 07/11/23 08/28/23 spironolactone 25 mg tablet 25 mg PO DAILY 07/11/23 07/27/25 amlodipine 5 mg tablet 5 mg PO DAILY 08/28/23 07/27/25 metformin 500 mg tablet,extended 500 mg PO BID 07/27/25 07/27/25 release 24 hr Allergies Allergy/AdvReac Type Severity Reaction Status Date / Time Penicillins Allergy Rash Verified 07/27/25 07:38 sulfamethoxazole (From Allergy Nausea Verified 07/27/25 07:38 Bactrim) trimethoprim (From Bactrim) Allergy nausesa Verified 07/27/25 07:38 vancomycin Allergy Rash Verified 07/27/25 07:38 Opioid HPI Opioid Management Most Recent Opioid Data: Last Pain Scale 5 Today, 07:39 Review of Systems ROS Narrative A ten point review of systems is negative except as noted above. PFSH PFSH Social History Smoking status: Former smoker Little interest or pleasure in doing things: not at all Feeling down, depressed, or hopeless: not at all Exam Narrative Exam Narrative: Nurses note and vital signs reviewed General:The patient appears well and in no apparent distress.Patient is resting comfortably on cart. Skin:Warm, dry, no pallor noted.There is no rash noted. Head:Normocephalic, atraumatic Eye: Normal conjunctiva, no drainage Ears, Nose, Mouth, and Throat: oral mucosa is moist. Nares patent. Cardiovascular:Regular Rate and Rhythm Respiratory:Patient is in no distress, no accessory muscle use, lungs are clear to auscultation, no wheezing, rales or rhonchi Back:non-tender GI: Soft and nontender Musculoskeletal: The patient has no evidence of calf tenderness, no pitting edema, symmetrical pulses noted bilaterally Neurological:A&O, normal speech Psychiatric:Cooperative Constitutional Vital Signs, click to edit/add: Last Vital Signs Temp 98.5 F 07/27/25 07:39 Pulse 74 07/27/25 07:39 Resp 16 07/27/25 07:39 BP 146/88 H 07/27/25 07:39 Pulse Ox 96 07/27/25 08:39 O2 Del Method Room Air 07/27/25 08:39 Course Vital Signs Vital signs: Vital Signs Temperature 98.5 F 07/27/25 07:39 Pulse Rate 74 07/27/25 07:39 Respiratory Rate 16 07/27/25 07:39 Blood Pressure 146/88 H 07/27/25 07:39 Pulse Oximetry 95 07/27/25 07:39 Oxygen Delivery Method Room Air 07/27/25 07:39 Temperature 98.5 F 07/27/25 07:39 Pulse Rate 74 07/27/25 07:39 Respiratory Rate 16 07/27/25 07:39 Blood Pressure 146/88 H 07/27/25 07:39 Pulse Oximetry 96 07/27/25 08:39 Oxygen Delivery Method Room Air 07/27/25 08:39 Medical Decision Making MDM Narrative Medical decision making narrative: Her workup including troponin is negative. I suspect that her symptoms are due to stress. She will follow-up with her physician. Treatment diagnosis and follow-up were discussed with the patient. Differential Diagnosis Differential Diagnosis: Myocardial infarction, pneumothorax, stress, chest wall pain Lab Data Lab results reviewed: Yes I reviewed the patient's lab results Labs: Lab Results 07/27/25 Range/Units 08:06 WBC 10.4 (4.0-11.0) 10^3/uL RBC 4.66 (4.20-5.40) 10^6/uL Hgb 13.4 (12.0-16.0) g/dL Hct 39.1 (36.0-48.0) % MCV 83.9 (81.0-99.0) fL MCH 28.8 (26.7-34.0) pg MCHC 34.3 (29.9-35.2) g/dL RDW 12.2 (11.0-15.0) % Plt Count 295 (150-450) 10^3/uL MPV 10.5 (9.5-13.5) fL Neut % (Auto) 60.2 (43.0-75.0) % Lymph % (Auto) 27.8 (20.5-60.0) % Whiteside % (Auto) 5.6 (1.7-12.0) % Eos % (Auto) 5.4 (0.9-7.0) % Baso % (Auto) 0.7 (0.2-2.0) % Neut # (Auto) 6.3 (1.4-6.5) 10^3/uL Lymph # (Auto) 2.9 (1.2-3.8) 10^3/uL Whiteside # (Auto) 0.6 (0.3-0.8) 10^3/uL Eos # (Auto) 0.6 (0.0-0.7) 10^3/uL Baso # (Auto) 0.1 (0.0-0.1) 10^3/uL Abs Immat Gran (auto) 0.03 (0.00-0.03) 10^3/uL Imm/Tot Granulo (auto) 0.3 (0.0-0.5) % Sodium 141 (136-145) mmol/L Potassium 4.1 (3.5-5.1) mmol/L Chloride 104 (98-107) mmol/L Carbon Dioxide 28.7 (21.0-32.0) mmol/L Anion Gap 12.4 BUN 15.0 (7.0-18.0) mg/dL Creatinine 0.71 (0.55-1.02) mg/dL Est GFR ( Amer) >60 (>=60 mL/min/1.73m^2) Est GFR (Non-Af Amer) >60 (>=60 mL/min/1.73m^2) BUN/Creatinine Ratio 21.1 Glucose 90 (74-106) mg/dL Calcium 9.2 (8.5-10.1) mg/dL Troponin I High Sens <4.0 L (4.0-51.3) pg/mL Imaging Data Chest x-ray: My impression: No acute findings ECG Data Attestation: I personally reviewed and interpreted this ECG as follows: (EKG on my interpretation shows normal sinus rhythm with rate of 72 and no acute change) Discharge Plan Discharge Chief Complaint: Chest Pain Clinical Impression: Chest pain Patient Disposition: Home, Self-Care Time of Disposition Decision: 08:40 Condition: Good Mode of Transportation: Private Vehicle Prescriptions / Home Meds: No Action ropinirole 1 mg tablet 1 mg PO BEDTIME omeprazole 40 mg capsule,delayed release(DR/EC) 40 mg PO DAILY spironolactone 25 mg tablet 25 mg PO DAILY olmesartan 40 mg tablet 40 mg PO DAILY amlodipine 5 mg tablet 5 mg PO DAILY metformin 500 mg tablet extended release 24 hr 500 mg PO BID Print Language: Serbian Instructions: Chest Pain (ED) Referrals: Micheal Ocasio DO [Primary Care Provider] - 1 week
[2025-07-27 08:19] LABS: Hematocrit 39.1 % (36.0-48.0); Hemoglobin 13.4 g/dL (12.0-16.0); Immature Granulocytes Abs Auto 0.03 10^3/uL (0.00-0.03); Immature Granulocytes Pct Auto 0.3 % (0.0-0.5); Lymphocytes Absolute Auto 2.9 10^3/uL (1.2-3.8); Mean Corpuscular HGB Conc 34.3 g/dL (29.9-35.2); Mean Corpuscular Hemoglobin 28.8 pg (26.7-34.0); Mean Corpuscular Volume 83.9 fL (81.0-99.0); Platelet Count 295 10^3/uL (150-450); Red Blood Count 4.66 10^6/uL (4.20-5.40); White Blood Count 10.4 10^3/uL (4.0-11.0)
[2025-07-27 08:25] LABS: Anion Gap 12.4; Blood Urea Nitrogen 15.0 mg/dL (7.0-18.0); Calcium 9.2 mg/dL (8.5-10.1); Carbon Dioxide 28.7 mmol/L (21.0-32.0); Chloride 104 mmol/L (98-107); Estimated GFR (African America >60 (>=60 mL/min/1.73m^2); Estimated GFR (Non-African Ame >60 (>=60 mL/min/1.73m^2); Glucose 90 mg/dL (74-106); Potassium 4.1 mmol/L (3.5-5.1); Sodium 141 mmol/L (136-145)
== END 2025-07-27 08:49 | disposition home or self-care (01) ==
PROVIDERS: Emergency Provider Emergency Medicine; PCP Family Medicine
DX: R07.9 Chest pain, unspecified (principal); Z87.891 Personal history of nicotine dependence
CPT/HCPCS: 36415; 71045; 80048; 84484; 85025; 93005; 99284; 99285

== ENCOUNTER 2025-08-11 13:59 | Emergency (ER) | payer BC, SELFPAY ==
[2025-08-11 14:05] VITALS: BP 144/95; PULSE 97; TEMP 36.7; O2SAT 98; BMI 30.7
--- NOTE | 2025-08-11 14:21 | CT_ITS ---
[address] [address] Patient Name: BRANDON LONG MRN: [id number] date: 1975 Sex: F Assigned Patient Location: ER Current Patient Location: [facility] Accession/Order Number: [id number] Exam Date: 08/11/2025 14:38 Report Date: 08/11/2025 15:04 At the request of: PAZ RUIZ Procedure: CT abdomen pelvis wo con CT abdomen pelvis wo con 08/11/2025 2:42 PM SIGNS AND SYMPTOMS: Flank pain, left greater than right. History of kidney stones. TECHNIQUE: Multidetector ct axial images of the abdomen and pelvis were obtained without IV contrast. Multiplanar reformats were performed and reviewed to further define anatomy and possible pathology. CT was performed with one or more of the following dose reduction techniques: Automated exposure control, adjustment of the mA and/or kV according to patient size, or use of iterative reconstruction technique. COMPARISON: The 2024. FINDINGS: Lower Chest: Within normal limits. ABDOMEN: Liver: Within normal limits. Bile Ducts: Normal caliber. Gallbladder: Previously removed Pancreas: Within normal limits. Spleen: Within normal limits. Adrenals: Within normal limits. Kidneys: Within normal limits. Pelvis: Reproductive Organs: No pelvic masses. Ureters: Within normal limits. Bladder: Within normal limits. Bowel: Normal caliber. There is a normal appendix in the right lower quadrant. Mesenteric Lymph Nodes: No enlarged mesenteric lymph nodes. Peritoneum: No ascites or free air, no fluid collection. Vessels: Atherosclerotic changes are noted in the abdominal aorta. Retroperitoneum: Within normal limits. Abdominal Wall: Within normal limits. Bones: Within normal limits. CT/CT abdomen pelvis wo con IMPRESSION: No radiodense renal, ureteral, or bladder stones. No bowel obstruction or obstructive uropathy. There is evidence of prior cholecystectomy. Impression dictated by: Hank Main M.D. 08/11/2025 3:04 PM Dictation Location: [place] [address] Electronically authenticated by: [id number] Y Date: 08/11/2025 15:04
--- NOTE | 2025-08-11 14:24 | ED.GENADUL1 ---
HPI HPI - General Adult General Chief complaint: Back Pain/Injury Stated complaint: LOWER BACK PAIN Time Seen by Provider: 08/11/25 14:11 History of Present Illness HPI narrative: Patient is a 49-year-old female with a PMH of hypertension that presents to the emergency department with complaints of lower back pain that radiates to her flanks, left greater than right that started last night. She notes that she was also having urinary frequency and urgency. She denies hematuria or dysuria. She did have a kidney stone that was treated nonoperatively about 20 years ago. She denies any fever, night sweats, or chills. Her pain is intermittent and will also cause intermittent nausea with it. Patient does not have periods anymore as she has had a hysterectomy. Related Data Home Medications ?Medication ?Instructions ?Recorded ?Confirmed olmesartan 40 mg tablet 40 mg PO DAILY 07/11/23 08/11/25 omeprazole 40 mg capsule,delayed 40 mg PO DAILY 07/11/23 08/11/25 release spironolactone 25 mg tablet 25 mg PO DAILY 07/11/23 08/11/25 amlodipine 5 mg tablet 5 mg PO DAILY 08/28/23 08/11/25 metformin 500 mg tablet,extended 500 mg PO BID 07/27/25 08/11/25 release 24 hr Allergies Allergy/AdvReac Type Severity Reaction Status Date / Time Penicillins Allergy Rash Verified 08/11/25 14:05 sulfamethoxazole (From Allergy Nausea Verified 08/11/25 14:05 Bactrim) trimethoprim (From Bactrim) Allergy nausesa Verified 08/11/25 14:05 vancomycin Allergy Rash Verified 08/11/25 14:05 Opioid HPI Opioid Management Most Recent Opioid Data: Last Pain Scale 7 Today, 14:44 Last MAR Pain Assessment Today, 14:44 Review of Systems ROS Status of ROS 10 or more systems reviewed and unremarkable except as noted in history and below PFSH PFSH Social History Smoking status: Former smoker Little interest or pleasure in doing things: not at all Feeling down, depressed, or hopeless: not at all Exam Narrative Exam Narrative: General: No distress, age-appropriate Skin: Warm, dry, no pallor. No rash. Head: Normocephalic, atraumatic. Neck: Supple, non-tender. Eye: Pupils are equal, round and EOMI. No scleral icterus. Ears, Nose, Mouth, and Throat: No nasal mucosal hypertrophy. Oral mucosa is moist, no posterior oropharynx erythema, uvula is mid-line Cardiovascular: Regular Rate and Rhythm without murmur, gallop or rub. Respiratory: No accessory muscle use or respiratory distress. Lungs are clear to auscultation, no wheezing, rales or rhonchi Back: No midline thoracic or lumbar vertebral tenderness. Bilateral CVA tenderness. BL lumbar paraspinal tenderness. Musculoskeletal: Full ROM of all extremities, no calf or popliteal tenderness GI: Abdomen is soft, non-distended, non tender to palpation. No masses appreciated. No rebound, guarding, or rigidity noted. Neurological: A&O x4. No cranial nerve dysfunction observed. No truncal ataxia. Moves all extremities. Sensation intact. Psychiatric: Cooperative and interactive. Normal mood and affect. Constitutional Vital Signs, click to edit/add: Last Vital Signs Temp 98.1 F 08/11/25 14:05 Pulse 87 08/11/25 15:45 Resp 16 08/11/25 15:45 BP 147/87 H 08/11/25 15:45 Pulse Ox 98 08/11/25 15:45 O2 Del Method Room Air 08/11/25 14:05 Documenting provider has reviewed patient's vital signs: yes Course Vital Signs Vital signs: Vital Signs Temperature 98.1 F 08/11/25 14:05 Pulse Rate 97 H 08/11/25 14:05 Respiratory Rate 16 08/11/25 14:05 Blood Pressure 144/95 H 08/11/25 14:05 Pulse Oximetry 98 08/11/25 14:05 Oxygen Delivery Method Room Air 08/11/25 14:05 Temperature 98.1 F 08/11/25 14:05 Pulse Rate 87 08/11/25 15:45 Respiratory Rate 16 08/11/25 15:45 Blood Pressure 147/87 H 08/11/25 15:45 Pulse Oximetry 98 08/11/25 15:45 Oxygen Delivery Method Room Air 08/11/25 14:05 Medical Decision Making MDM Narrative Medical decision making narrative: This is a 49-year-old female that presents with bilateral lower back pain that radiates to the flanks, left greater than right, since last night. Ibuprofen not relieving the pain. Some nausea when pain increases, no vomiting, no diarrhea. Urinary urgency and frequency, no hematuria or dysuria. Previous history of kidney stone. On arrival patient is in no distress, sitting up on the ED cart. Vital signs hemodynamically stable. Temperature afebrile 98.1. IV placed. UA, CBC, CMP, CT ab/pel without contrast ordered to evaluate for kidney stone. Mild leukocytosis, WBC 12.7, no left shift. Electrolytes WNL, creatinine and BUN WNL, liver function WNL, UA negative for infection CT negative for nephrolithiasis and UA normal, making infection or obstruction unlikely. Mild leukocytosis likely due to stress response or mild dehydration. Symptoms most consistent with musculoskeletal flank pain or possibly referred pain from the lumbar spine. Results discussed with patient, on reevaluation her pain is somewhat improved with the Toradol. I did give her lidocaine patch for her left side here as well. Plan will be to discharge patient with close PCP follow-up. Multimodal pain control with ibuprofen or Tylenol, Flexeril that she has at home already, and lidocaine patch. She declined a Medrol Dosepak secondary to steroid side effects. We discussed return to ED precautions including worsening pain, fever, vomiting, hematuria, or inability to urinate. Patient was discharged in stable condition with plan for close follow-up with PCP or return to ED with any new or worsening symptoms. Differential Diagnosis Differential Diagnosis: Nephrolithiasis, pyelonephritis, UTI,Musculoskeletal pain Lab Data Lab results reviewed: Yes I reviewed the patient's lab results Labs: Lab Results 08/11/25 Range/Units 14:25 WBC 12.7 H (4.0-11.0) 10^3/uL RBC 5.03 (4.20-5.40) 10^6/uL Hgb 14.3 (12.0-16.0) g/dL Hct 41.9 (36.0-48.0) % MCV 83.3 (81.0-99.0) fL MCH 28.4 (26.7-34.0) pg MCHC 34.1 (29.9-35.2) g/dL RDW 12.4 (11.0-15.0) % Plt Count 292 (150-450) 10^3/uL MPV 10.3 (9.5-13.5) fL Neut % (Auto) 65.2 (43.0-75.0) % Lymph % (Auto) 22.5 (20.5-60.0) % [place] % (Auto) 5.7 (1.7-12.0) % Eos % (Auto) 5.8 (0.9-7.0) % Baso % (Auto) 0.6 (0.2-2.0) % Neut # (Auto) 8.3 H (1.4-6.5) 10^3/uL Lymph # (Auto) 2.9 (1.2-3.8) 10^3/uL [place] # (Auto) 0.7 (0.3-0.8) 10^3/uL Eos # (Auto) 0.7 (0.0-0.7) 10^3/uL Baso # (Auto) 0.1 (0.0-0.1) 10^3/uL Abs Immat Gran (auto) 0.03 (0.00-0.03) 10^3/uL Imm/Tot Granulo (auto) 0.2 (0.0-0.5) % Sodium 140 (136-145) mmol/L Potassium 4.0 (3.5-5.1) mmol/L Chloride 103 (98-107) mmol/L Carbon Dioxide 29.0 (21.0-32.0) mmol/L Anion Gap 12.0 BUN 13.0 (7.0-18.0) mg/dL Creatinine 0.73 (0.55-1.02) mg/dL Est GFR ( Amer) >60 (>=60 mL/min/1.73m^2) Est GFR (Non-Af Amer) >60 (>=60 mL/min/1.73m^2) BUN/Creatinine Ratio 17.8 Glucose 96 (74-106) mg/dL Calcium 9.6 (8.5-10.1) mg/dL Total Bilirubin 0.5 (0.2-1.0) mg/dL AST 19 (15-37) U/L ALT 31 (14-59) U/L Alkaline Phosphatase 67 (46-116) U/L Total Protein 8.0 (6.4-8.2) g/dL Albumin 4.2 (3.4-5.0) g/dL Globulin 3.8 g/dL Albumin/Globulin Ratio 1.1 Urine Color Lt. yellow (YELLOW) Urine Clarity Clear (CLEAR) Urine pH 7.5 (5.0-9.0) Ur Specific Stuart 1.015 (1.005-1.025) Urine Protein Negative (NEG/TRACE) mg/dL Urine Glucose (UA) Negative (NEGATIVE) mg/dL Urine Ketones Negative (NEGATIVE) mg/dL Urine Occult Blood Negative (NEGATIVE) Urine Nitrite Negative (NEGATIVE) Urine Bilirubin Negative (NEGATIVE) Urine Urobilinogen 1.0 (0.2-1.0) EU/dL Ur Leukocyte Esterase Negative (NEGATIVE) Imaging Data CT scan - abdomen: Attestation: I have reviewed the pertinent imaging results. Radiologist's impression: ITS Impressions Abdomen/Pelvis CT 08/11/25 14:21 IMPRESSION: No radiodense renal, ureteral, or bladder stones. No bowel obstruction or obstructive uropathy. There is evidence of prior cholecystectomy. Impression dictated by: Hank Main M.D. 08/11/2025 3:04 PM Dictation Location: [place] [address] Electronically authenticated by: [id number] Y Date: 08/11/2025 15:04 Discharge Plan Discharge Chief Complaint: Back Pain/Injury Clinical Impression: Back pain Patient Disposition: Home, Self-Care Time of Disposition Decision: 15:30 Condition: Good Mode of Transportation: Private Vehicle Prescriptions / Home Meds: No Action omeprazole 40 mg capsule,delayed release(DR/EC) 40 mg PO DAILY spironolactone 25 mg tablet 25 mg PO DAILY olmesartan 40 mg tablet 40 mg PO DAILY amlodipine 5 mg tablet 5 mg PO DAILY metformin 500 mg tablet extended release 24 hr 500 mg PO BID Print Language: Romanian Instructions: Back Pain (ED), Lower Back Exercises (ED) Additional Instructions: You were evaluated today for flank pain. Your exam, labs, and imaging were reassuring and do not show any emergent problem. Most likely, your pain is musculoskeletal in nature. Continue supportive care and return if symptoms change or worsen. Pain relief: Take ibuprofen 600 mg every 6 hours as needed for pain, with food. You may also use acetaminophen (Tylenol) 650 mg every 6 hours as needed. Do not exceed 3,000 mg of acetaminophen in 24 hours. You can also use Flexeril you have at home, and/or lidocaine patches available olis-qol-powwqdm. Hydration: Drink plenty of fluids (water or electrolyte drinks). Avoid excess caffeine or alcohol. Rest and activity: Avoid heavy lifting, twisting, or strenuous activity for the next few days. Use a heating pad or warm compress on your lower back or flank for 15?20 minutes several times a day to help with muscle relaxation. Follow-Up: Schedule a follow-up visit with your primary care provider within 2?3 days for reassessment. If your pain persists beyond a few days, or if it worsens, your provider may consider additional imaging or referral (e.g., urology or orthopedics). Return to the Emergency Department Immediately if You Develop: Fever, chills, or new sweats Worsening or severe flank or abdominal pain Nausea or vomiting that prevents you from keeping fluids down Blood in your urine or new urinary pain/burning Inability to urinate or decreased urine output Weakness, dizziness, or fainting Referrals: Micheal Ocasio DO [Primary Care Provider] - 1 week Discharge Date/Time: 08/11/25 15:52
--- OUTSIDE RECORDS SUMMARY | 2025-08-11 14:37 | XMS_ITS | Clinical Summary ---
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 Name Role Phone Guyalix Micheal Leigh EPSTEIN Primary Care Provider [phone] Allergies Active AllergyReactionsCriticalityNoted LhmxXaxmrjnzUjyvkgjbnewipLhhs02/24/2024 Other Reaction(s): polyarthralgia FygejgxbEizgg23/24/2024Clavulanic AcidGI utdymzmtlga71/24/2024Cyclobenzaprine 01/28/2024 Other Reaction(s): jittery MethylprednisoloneGI pjvsxqsuxjw65/24/5229Nxssqpshrjk50/17/2023 Other Reaction(s): Hives Bvgxuogzusd13/24/2024 Other Reaction(s): Rapid heart rate Wmdogthpybfsjrxt11/17/2023 Other Reaction(s): GI issues Sulfamethoxazole-Awfvcasoovyi26/17/2023 Other Reaction(s): vomiting Kveeycgs93/24/2024 Other Reaction(s): jittery Rmacithwjzuz50/17/2023 Other Reaction(s): unknown Mnffkuvbyf71/17/2023 Other Reaction(s): hives Medications MedicationSigDispense QuantityRefillsLast FilledStart [...] bedtime.Active tiZANidine (Zanaflex) 4 MG tablet if aemidu0011/27/2023ctive MAGNESIUM PO Take 1 capsule by mouth 3 (three) times a weekActive linaCLOtide (Linzess) 72 MCG capsule Take 72 mcg by mouth if eeiqcw2408/26/2024ctive furosemide (Lasix) 20 MG tablet Take 20 mg by mouth if neededActive liothyronine (Cytomel) 5 MCG tablet Indications:ESS (euthyroid sick syndrome),Chronic fatigueTake 1.5 tablet in AM and 1.5 tablet in PM on an empty stomach. CHIDI; Traity or CueSongs brands only 270 tablet 04/21/2025tive Additional Information [...] days 2-5 then stop 6 tablet 06/13/2025tive iveovpupuuleals-dmwjalseqtcnqyw-ZR 30-2-10 MG/5ML syrup Indications:Acute coughTake 10 mL by mouth every 8 (eight) hours if needed for congestion or cough 120 mL 06/13/2025tive clobetasol (Temovate) 0.05 % ointment Indications:Eczema, dyshidroticApply topically in the morning and before bedtime. Apply to affected area BID for 5 days. 45 g 5Active Active Problems ProblemNoted DateDiagnosed DateESS (euthyroid sick syndrome)04/11/2025hronic zgacnov7704/11/2025Insulin gksttrueue21/25/2025Reactive czspofksftuy05/25/2025 Allergic rhinitis due to animal sxjyxn3104/19/2024Non morbid obesity due to excess pvnoiznx78/15/2024iffuse cystic mastopathy of left xwpfgm0504/19/2024iffuse cystic mastopathy of right qcsblr4204/19/2024Essential aktkpxtfnqwg10/15/2024 Anxiety and nvoxdxicdq93/15/2024GERD (gastroesophageal reflux disease)04/19/2024 Ddqfxclcsvqyr13/15/8333Biwjsoojwilesj89/15/2407Dexurdzwusk53/15/2024IBS (irritable bowel syndrome)04/19/20244769Gdqlmlqu79/15/2024Major depression, single kmgjptn9904/19/20242331Pjjwrsgp83/15/2024lantar fasciitis of left foot04/19/2024 Reactive vmocrhgnflsacdy58/15/2024Severe persistent leatxw8304/19/2024Trochanteric bursitis of right hip04/19/2024Urge incontinence of urine04/19/2024 Resolved Problems ProblemNoted DateDiagnosed DateResolved DateObesity (BMI 30-39.9)04/19/2024 04/11/2025 Encounters DateTypeDepartmentCare IzqcCydlqsuxpqj72/24/2025 3:30 PM EDTClinical Support [facility] [address] [place] [address] Shelby Mobley CCC-A Bilateral hearing loss, unspecified hearing loss type (Primary Dx)06/29/2025 Bamboo flowsheet [facility] [address] [place] [phone] Shelby Mobley CCC-A 06/16/2025 3:00 PM EDTAncillary Procedure [facility] [address] [place] [address] Breast cancer screening by zzxiqdqol83/11/8352Ikviiu84/10/5518Lqlnlh99/08/2025 1:55 PM EDTOffice Visit [facility] [address] [place] [address] Ericka Last, IUSS ANALYST Acute cough (Primary Dx); Bronchitis; Eczema, aiqaplihmbk25/08/1877Jyzzxh92/18/2025Telephone [facility] [address] [place] [phone] Yeakle, Bertha, MA Care Coordinationfrom Last 3 [...] oz pure alcohol)Caffeine intake: 2-3 cups per jgtT1847 Health LiteracyAnswerDate RecordedHow often do you need to have someone help you when you read instructions, pamphlets, or other written material from your doctor or pharmacy? Xddovgrwu73/10/2025Social Connection and Isolation PanelAnswerDate RecordedIn a typical week, how many times do you talk on the phone with family, friends, or neighbors?More than three times a week04/14/2025How often do you get together with friends or relatives?Once a week04/14/2025How often do you attend taoist or orthodox services?Never04/14/2025Do you belong to any clubs or organizations such as taoist groups, unions, fraternal or athletic groups, or school groups?No 04/14/2025How often do you attend meetings of the clubs or organizations you belong to?Never04/14/2025re you , , , , never , or living with a partner?Ktfhoey0804/14/2025UDIT-CAnswerDate RecordedQ1: How often do you have a drink containing alcohol?Monthly or less04/14/2025Q2: How many drinks containing alcohol do you have on a typical day when you are drinking?3 or Q3: How often do you have six or more drinks on one occasion?Less than eorlyze4304/14/2025Overall Financial Resource Strain (CARDIA) AnswerDate RecordedHow hard is it for you to pay for the very basics like food, housing, medical care, and heating?Somewhat hard04/14/2025PHQ-2AnswerDate RecordedPatient Health Questionnaire-2 Yzhzy29611/09/2023[facility] Mcdaniel of Occupational Health - Occupational Stress QuestionnaireAnswerDate [...] were you homeless or living in a group home (including now)?No04/14/2025CommentsNoSex and Gender Information ValueDate RecordedSex Assigned at RpkoyQssnbz00/17/2025 1:26 PM ESTLegal Sex Bmvfcb1612/18/2022 7:12 PM EDTGender GykkkiojFwcijn68/17/2025 1:26 PM ESTSexual LsikcdaylroHmjyhlco94/17/2025 1:26 PM EST Last Filed Vital Signs Vital SignReadingTime TakenCommentsBlood Efduiaxf866/8806/13/2025 2:01 PM EDT Umdlm393006/13/2025 2:01 PM GATPgfmaksohui50.6 ??C (97.8 ??F)06/13/2025 2:01 PM EDTRespiratory Rate--Oxygen Lmjwnlhctu19%06/13/2025 2:01 PM EDTInhaled Oxygen Concentration--Zbimkn59.2 kg (168 lb)06/13/2025 2:01 PM MWJXaxywj656.6 cm (4' 10.5 )04/21/2025 10:41 AM EDTBody Mass Index34.51004/21/2025 10:41 AM EDT Plan of Treatment DateTypeDepartmentCare Team (Latest Contact Info)Zjweohgmcju54/09/2025 2:30 PM ESTOffice Visit ABRAM CASTANEDA [address] [facility] [address] [place] [phone] Maycol Clark DO [address] [facility] [address] [place] [address] Health MaintenanceDue DateLast DoneCommentsCT Ioznsexsjqdr18/01/1978Colonoscopy 1977Colorectal Cancer Cvjlgubro27/01/1978FIT-DNA1977FIT1977 FOBT1977 5412Zcnusqtrnusjc57/01/1978Pneumococcal Vaccine: Pediatrics (0 to 5 Years) and At-Risk Patients (6 to 64 Years) (1 of 2 - PCV)1996COVID-19 Vaccine ( season)504/, 12/29/2020Influenza Vaccine (#1)511/05/2021, 06/06/2020, 08/04/20184409Zyawatqgd46/11/202609/08/2025, 01/12/2024, 11/22/2022, Additional history existsCervical Cancer Screening DiscontinuedHPV/MojgmbCuyyenykspwr38/04/2024ap SmearDiscontinued Procedures Procedure NamePriorityDate/TimeAssociated DiagnosisCommentsAUDITORY FUNCTION ACUUDZavugoa28/24/2025 4:27 PM EDT BI MAMMOGRAM SCREENING TOMOSYNTHESIS JEXBKZCDYSqozrdr59/11/2025 2:10 PM EDT Breast cancer screening by mammogram IGP,RFXAPTIMA HPV ALL,16/18,75Dkyeshr57/04/2024 12:00 AM EST Encounter for Papanicolaou smear of vagina from Last 3 Months or Most Recently Relevant to Health Maintenance Results * Auditory function tests (06/29/2025 4:27 PM EDT) Narrative Shelby Mobley, [facility] - 06/29/2025 4:27 PM EDT Bilateral normal heairng Authorizing ProviderResult TypeResult StatusDesegun Mobley [facility]AAUDIOLOGY SERVICES ORDERABLESFinal Result * Bilateral screening mammogram [...] Amador M.D. Authorizing ProviderResult TypeResult StatusWilliam [facility]ish [facility] BI PROCEDURES Final Result * IGP,rfxAptima HPV all,16/18,45 (09/08/2024 12:00 AM EST)ComponentValueRef RangeTest MethodAnalysis TimePerformed AtPathologist SignatureDiagnosis: CommentLABCORPComment:NEGATIVE FOR INTRAEPITHELIAL LESION OR MALIGNANCY. Specimen Adequacy:CommentLABCORPComment: Satisfactory for evaluation. ??No endocervical cells are present. ??This is consistent with a history of hysterectomy. Clinician Provided ICD10:CommentLABCORPComment:Z12.72Performed By:CommentLABCORP Comment:Emeka Orlando, Office Machine Installer ([facility])Cyto Comments.LABCORPNote:Comment LABC[facility]PComment: The Pap smear is a screening test designed to aid in the detection of premalignant and malignant conditions of the uterine cervix. ??It is not a diagnostic procedure and should not be used as the sole means of detecting cervical cancer. ??Both false-positive and false-negative reports do occur. Test Methodology:CANCELEDLABCORPComment: The Thin Prep(R) Practice Assistant was unable to read this specimen. ??Therefore a manual review was performed. Result canceled by the ancillary. .CommentLABCORPComment: The HPV DNA reflex criteria were not met with this specimen result therefore, no HPV testing was performed. Specimen (Source)Anatomical Location / LateralityCollection Method / Volume Collection TimeReceived TimeSwabVaginal structure / Irfrfeq35/02/2024 Comment:Vagina LMP: LAVH BS 20 Narrative [facility] - 09/14/2024 3:07 PM EST Performed at: 01 - [facility] [address] ??[id number] Solar Sales Representative: Karo Coronado MD, Phone: ??[phone] Specimen Comment: [id number] Specimen Comment: No. of containers..01 ThinPrep Vial Authorizing ProviderResult TypeResult StatusWilliam Harish Clark DOL CYTOLOGY ORDERABLESEdited Result - FinalPerforming OrganizationAddressCity/State/ZIP Code Phone Number [facility] from Last 3 Months or Most Recently Relevant to Health Maintenance Care Teams Team MemberRelationshipSpecialtyStart DateEnd Date Micheal Ocasio DO [address] [place] [id number] PCP - Hbkvucs53/8/23
--- OUTSIDE RECORDS SUMMARY | 2025-08-11 14:37 | XMS_ITS | Clinical Summary ---
Author Organization [facility] Address [address] 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 Name Role Phone Unavailable Primary Care Provider Unavailabl e Social History Tobacco UseTypesPacks/DayYears UsedDateSmoking Tobacco: Never Assessed CommentsUnknownSex and Gender InformationValueDate RecordedSex Assigned at Not on fileLegal WrhIbsvil73/25/2022 10:21 AM ESTGender IdentityNot on file Sexual OrientationNot on file Plan of Treatment Health MaintenanceDue DateLast DoneCommentsCT Doipzrhxresg68/01/1978Colonoscopy 1977Colorectal Cancer Baoemppbc51/01/1978FIT-DNA (Cologuard)1977FIT 1977HIV Rpjnfxvpx14/01/1978Lipid Panel1977 3306Xknaiyvbjfdhn45/01/1978 Yearly Adult Xxoghiiv30/01/1978MMR Vaccines (1 of 1 - Standard series)1978 Hepatitis C Zhcxudtcq58/01/1996Hepatitis B Vaccines (1 of 3 - 19+ 3-dose series) 1996Cervical Cancer Qbdixfsem22/01/1999HPV/Fbboml7612/04/1998Pap Smear 1998DTaP/Tdap/Td Vaccines (1 - Tdap)12/05/19993155Iankhuigv75/01/2018Influenza Vaccine (#1)5COVID-19 Vaccine ( - 2024- season)2025Zoster [...]
[2025-08-11 14:44] LABS: Hematocrit 41.9 % (36.0-48.0); Hemoglobin 14.3 g/dL (12.0-16.0); Immature Granulocytes Abs Auto 0.03 10^3/uL (0.00-0.03); Immature Granulocytes Pct Auto 0.2 % (0.0-0.5); Lymphocytes Absolute Auto 2.9 10^3/uL (1.2-3.8); Mean Corpuscular HGB Conc 34.1 g/dL (29.9-35.2); Mean Corpuscular Hemoglobin 28.4 pg (26.7-34.0); Mean Corpuscular Volume 83.3 fL (81.0-99.0); Platelet Count 292 10^3/uL (150-450); Red Blood Count 5.03 10^6/uL (4.20-5.40); White Blood Count 12.7 10^3/uL (4.0-11.0)
[2025-08-11] MEDS: KETOROLAC TROMETHAMINE 30 MG/ML VIAL IVP (14:44)
[2025-08-11 14:51] LABS: Glucose Urine UA NEGATIVE (NEGATIVE)
[2025-08-11 15:02] LABS: Alanine Aminotransferase 31 U/L (14-59); Albumin Globulin Ratio 1.1; Albumin Level 4.2 g/dL (3.4-5.0); Alkaline Phosphatase 67 U/L (46-116); Anion Gap 12.0; Aspartate Amino Transferase 19 U/L (15-37); Blood Urea Nitrogen 13.0 mg/dL (7.0-18.0); Calcium 9.6 mg/dL (8.5-10.1); Carbon Dioxide 29.0 mmol/L (21.0-32.0); Chloride 103 mmol/L (98-107); Estimated GFR (African America >60 (>=60 mL/min/1.73m^2); Estimated GFR (Non-African Ame >60 (>=60 mL/min/1.73m^2); Globulin 3.8 g/dL; Glucose 96 mg/dL (74-106); Potassium 4.0 mmol/L (3.5-5.1); Sodium 140 mmol/L (136-145); Total Protein 8.0 g/dL (6.4-8.2)
[2025-08-11] MEDS: LIDOCAINE 5% PATCH 1 PATCH TOPICAL (15:44)
[2025-08-11 15:45] VITALS: BP 147/87; PULSE 87; O2SAT 98
== END 2025-08-11 15:52 | disposition home or self-care (01) ==
PROVIDERS: Physician Assistant; Emergency Provider Emergency Medicine; PCP Family Medicine
DX: M54.50 Low back pain, unspecified (principal); I10 Essential (primary) hypertension; Z87.442 Personal history of urinary calculi; Z90.710 Acquired absence of both cervix and uterus; Z87.891 Personal history of nicotine dependence
CPT/HCPCS: 36415; 74176; 80053; 81003; 85025; 96374; 99284; 99285; J1885